=== PATIENT | female | born 1950 | race Caucasian/White ===

== ENCOUNTER → 2019-01-25 | Day surgery (SDC) | payer MEDICARE, MEDICAID ==
[~2019-01-25] MED LIST: ALBU2.5V8 INH; ALLO100T PO; ASPI325T8 PO; BREO ELLIPTA 21 EACH IH; CELE200C PO; CLOP75TA PO; CYCL1DRO EACHEYE; DULO60CA6 PO; FLUT1DIS3 IH; HYDR-3164 PO; HYDROmorphone 2 MG/ML VIAL IV PRN; IV RINGERS,LACTATED 1000ML 1,000 ML IV SCH; LIDOCAINE 1% PF 2 ML VIAL. ID PRN; LIDOCAINE 2% PF 5 ML VIAL. ONE; MORPHINE SULFATE 2 MG/ML VIAL. IV PRN; ONDANSETRON PF 4 MG/2 ML VIAL. IV PRN; PANT20TA2 PO; PIOG30TA41 PO; PRAV20TA2 PO; PRED1TAB3 PO; PROCHLORPERAZINE 10 MG/2 ML VIAL. IV PRN; PROPOFOL 20 ML IV ONE; TELM1TAB2 PO; TELM1TAB3 PO; VENTOLIN HFA18 GM INH; fentaNYL PF VIAL 100 MCG/2 ML VIAL IV PRN
[2019-01-25 08:12] VITALS: BP 103/58
== END | disposition home or self-care (01) ==
LOC: SURG 06:20
PROVIDERS: ATTEND Internal Medicine Gastroenterology
DX: K29.50 Unspecified chronic gastritis without bleeding (principal); I10 Essential (primary) hypertension; J45.909 Unspecified asthma, uncomplicated; F32.9 Major depressive disorder, single episode, unspecified; E11.9 Type 2 diabetes mellitus without complications; K21.9 Gastro-esophageal reflux disease without esophagitis; J43.9 Emphysema, unspecified; E78.00 Pure hypercholesterolemia, unspecified; Z91.013 Allergy to seafood; M19.90 Unspecified osteoarthritis, unspecified site; Z83.71 Family history of colonic polyps; Z79.899 Other long term (current) drug therapy; Z79.84 Long term (current) use of oral hypoglycemic drugs; Z98.890 Other specified postprocedural states
CPT/HCPCS: 43235; J2001; J2704

== ENCOUNTER → 2019-01-30 | Outpatient (CLI) | payer MEDICARE, MEDICAID ==
[2019-01-25 08:12] VITALS: BP 103/58
[~2019-01-30] MED LIST changes: +CONTRAST GIVEN. MC PRN; -HYDROmorphone 2 MG/ML VIAL IV PRN; +IOHEXOL 240 MG/ML 50ML VIAL. PO ONE; +IOHEXOL 300 MG/ML 100ML VIAL. IV ONE; -IV RINGERS,LACTATED 1000ML 1,000 ML IV SCH; -LIDOCAINE 1% PF 2 ML VIAL. ID PRN; -LIDOCAINE 2% PF 5 ML VIAL. ONE; -MORPHINE SULFATE 2 MG/ML VIAL. IV PRN; -ONDANSETRON PF 4 MG/2 ML VIAL. IV PRN; -PROCHLORPERAZINE 10 MG/2 ML VIAL. IV PRN; -PROPOFOL 20 ML IV ONE; -fentaNYL PF VIAL 100 MCG/2 ML VIAL IV PRN
--- NOTE | 2019-01-30 14:08 | RAD ---
CT ABD PELV W/ORAL IV CONTRAST Indication: Epigastric pain, weight loss Technique: Postcontrast CT imaging was performed of the abdomen pelvis, multiplanar reconstruction images submitted. Oral contrast was also given. One or more of the following individualized dose reduction techniques were utilized for this examination: 1. Automated exposure control 2. Adjustment of the mA and/or kV according to patient size 3. Use of iterative reconstruction technique. Comparison: None Findings: There may be a very small left lower lobe pulmonary nodule about 0.3 cm as seen on the first image 8 series 2. No focal abnormality is identified of the pancreas, spleen, liver. Gallbladder is present without obvious intraluminal abnormality by CT. There is no adrenal nodularity. Both kidneys enhance, no hydronephrosis. There is a small 0.8 cm hypodense lesion of the superior left kidney difficult to accurately characterize given small size. Tiny hypodense lesion of the inferior right kidney about 0.4 cm is also too small to accurately characterize. There is a small calculus of the mid right kidney about 0.2 cm although this may be vascular in etiology rather than in the collecting system. Bowel is not significantly dilated. There is no free fluid or free air. Normal appendix is visualized. There is some retained stool greater of the sigmoid colon. There is some atherosclerotic calcification of the abdominal aorta, also of the proximal celiac and superior mesenteric arteries, likely more significant narrowing of the celiac artery origin and lesser degree of narrowing of the proximal superior mesenteric artery. There are several small nonspecific mesenteric nodes. IMPRESSION: 1. There is no significant inflammatory type change, no evidence of acute appendicitis. There are several small nonspecific mesenteric nodes. 2. Calcified plaque results in narrowing of the celiac artery and to lesser degree of the superior mesenteric artery. 3. There may be a very small left lower lobe pulmonary nodule as seen on the first image. If increased risk factors for neoplasm, dedicated chest CT to completely evaluate for lung nodules may be indicated. Regarding the visualized nodule, optional 12 month follow-up could be performed as per revised Fleischner guidelines, no additional follow-up needed if low risk factors. 4. There is a small calculus of the right kidney although uncertain if vascular in etiology or in collecting system. Electronically signed by: Darío Dillon MD (01/30/2019 2:05 PM) [place] [id number]
== END | disposition home or self-care (01) ==
LOC: CT 12:01
PROVIDERS: ATTEND Internal Medicine Gastroenterology
DX: N20.0 Calculus of kidney (principal); K55.1 Chronic vascular disorders of intestine; I77.1 Stricture of artery; I70.0 Atherosclerosis of aorta; R63.4 Abnormal weight loss
CPT/HCPCS: 74177; Q9966; Q9967

== ENCOUNTER 2019-02-20 07:04 | Outpatient (CLI) | payer MEDICARE, MEDICAID ==
[2019-02-20] VITALS (12 sets, daily range): BP systolic 105–136; BP diastolic 52–71
[~2019-02-20] VITALS: Ht 172.7 cm; Wt 88.9 kg
[~2019-02-20 07:04] MED LIST changes: -ASPI325T8 PO; -BREO ELLIPTA 21 EACH IH; -CONTRAST GIVEN. MC PRN; -HYDR-3164 PO; -IOHEXOL 240 MG/ML 50ML VIAL. PO ONE; -IOHEXOL 300 MG/ML 100ML VIAL. IV ONE
[2019-02-20] MEDS ORDERED: BREO ELLIPTA 21 EACH IH (07:37)
[2019-02-20] MEDS ORDERED: PANT20TA2 PO (07:37)
[2019-02-20 07:40] LABS: BASO # 0.1 x10^3/uL (0.0-0.2); BASO % 1 % (0-3); EOS # 0.2 x10^3/uL (0.0-0.7); EOS % 2 % (0-3); HEMATOCRIT 37.1 % (36.0-47.0); HEMOGLOBIN 12.6 g/dL (12.0-15.5); LYMPH # 2.7 x10^3/uL (1.0-4.8); LYMPH % 26 % (24-48); MEAN CORPUSCULAR HEMOGLOBIN 32 pg (25-35); MEAN CORPUSCULAR HGB CONC 34 g/dL (31-37); MEAN CORPUSCULAR VOLUME 94 fL (79-100); MONO # 0.9 x10^3/uL (0.0-1.1); MONO % 9 % (0-9); NEUT # 6.2 x10^3uL (1.8-7.7); NEUT % 62 % (31-73); PLATELET COUNT 313 x10^3/uL (140-400); RED BLOOD COUNT 3.97 x10^6/uL (3.50-5.40); RED CELL DISTRIBUTION WIDTH 14.5 % (11.5-14.5); WHITE BLOOD COUNT 10.1 x10^3/uL (4.0-11.0)
[2019-02-20 07:49] LABS: CREATININE 0.9 mg/dL (0.6-1.0); GFR 62.3; POTASSIUM 3.6 mmol/L (3.5-5.1)
[2019-02-20] MEDS ORDERED: MIDAZOLAM HCL/PF 2 MG/2 ML VIAL. ONE ×2 (07:50→09:35)
[2019-02-20] MEDS ORDERED: HEPARIN for IV BOLUS 10,000 UNIT/10 ML VIAL. ONE (07:50)
[2019-02-20] MEDS ORDERED: fentaNYL PF VIAL 100 MCG/2 ML VIAL ONE ×2 (07:50→09:35)
[2019-02-20 07:53] LABS: PROTHROMBIN TIME PATIENT 13.1 SEC (11.7-14.0)
[2019-02-20 07:54] LABS: ALBUMIN 3.1 g/dL (3.4-5.0); ALBUMIN/GLOBULIN RATIO 0.8 (1.0-1.7); TOTAL BILIRUBIN 0.3 mg/dL (0.2-1.0); TOTAL PROTEIN 6.9 g/dL (6.4-8.2)
[2019-02-20] MEDS ORDERED: VERAPAMIL 5 MG/2 ML VIAL. ONE (08:19)
[2019-02-20] MEDS ORDERED: NITROGLYCERIN 200 MCG/2 ML SYRINGE FOR CATH/VASC LAB. ONE (08:19)
[2019-02-20] MEDS ORDERED: LIDOCAINE WITH 8.4% SOD BICARB 3 ML DISP.SYRIN. ONE (08:42)
[2019-02-20] MEDS ORDERED: IOHEXOL 240 MG/ML 100 ML VIAL. ONE (08:43)
[2019-02-20] MEDS ORDERED: fentaNYL PF VIAL 100 MCG/2 ML VIAL IV ONE (08:45)
[2019-02-20] MEDS ORDERED: HEPARIN for IV BOLUS 10,000 UNIT/10 ML VIAL. IART ONE (08:45)
[2019-02-20] MEDS ORDERED: IOHEXOL 240 MG/ML 100 ML VIAL. IJ ONE (08:45)
[2019-02-20] MEDS ORDERED: NITROGLYCERIN 200 MCG/2 ML SYRINGE FOR CATH/VASC LAB. IART ONE (08:45)
[2019-02-20] MEDS ORDERED: VERAPAMIL 5 MG/2 ML VIAL. IART ONE (08:45)
[2019-02-20] MEDS ORDERED: MIDAZOLAM HCL/PF 2 MG/2 ML VIAL. IV ONE (08:45)
[2019-02-20] MEDS ORDERED: LIDOCAINE WITH 8.4% SOD BICARB 3 ML DISP.SYRIN. IJ ONE (08:45)
[2019-02-20] MEDS ORDERED: HEPARIN for IV BOLUS 10,000 UNIT/10 ML VIAL. IV ONE (10:00)
--- NOTE | 2019-02-20 11:37 | RAD ---
02/20/2019 1. Mesenteric angiography 2. Placement of balloon expandable stent, superior mesenteric artery Discussion: The patient is a 68-year-old female with long-standing severe vascular disease including peripheral vascular disease and sustaining multiple prior interventions. She presents with paroxysmal abdominal pain, epigastric pain, and unintentional weight loss. 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 Mild narrowing of the LUPILLO is felt to be present. Patient's symptoms are felt to reflect chronic mesenteric ischemia. The risks and benefits of the procedure were discussed extensively with the patient. Informed consent was obtained. The patient was brought to the IR suite and placed in the supine position. A timeout procedure was performed. Left wrist was prepped and draped using sterile barrier technique. A Barbeau test was performed, confirming patency of the radiopalmar arch. Radial artery access was obtained using ultrasound guidance and micropuncture technique. Reference ultrasound images were saved medical record. A 6 Welsh Low Profile sheath was placed. The guidewire and catheter were advanced to the ostium of the SMA. Angiography was performed demonstrating high-grade stenosis at the ostium extending approximately 2 cm into the SMA. Retrograde filling of celiac collaterals noted. The stenosis was crossed with a wire. Predilatation was performed with a 4 mm balloon. Subsequently a 5.5 mm x 20 cm balloon expandable stent was placed. Repeat angiography demonstrated significant improvement in morphology and flow through the previously stenosed lesion. Guidewires and catheters were removed. A TR band was placed for hemostasis. The patient tolerated the procedure well without immediate complication. Sterile dressings were applied. The procedures performed under conscious sedation including continuous cardiopulmonary monitoring via a dedicated sedation nurse. [id number] sedation time: 1 hour Fluoroscopy time: 12.7 minutes Dose area product [id number] Impression: Treatment of high-grade stenosis, proximal superior mesenteric artery, via transradial placement of a balloon expandable stent
[2019-02-20] MEDS ORDERED: ASPI325T8 PO ×2 (11:43→11:44)
[2019-02-20] MEDS ORDERED: ASPIRIN 325 MG TABLET PO ONE (11:45)
[2019-02-20] MEDS ORDERED: ASPIRIN 325 MG TABLET ONE (12:04)
--- NOTE | 2019-02-20 13:43 | NUR ---
Discharge Note: CHOCO YEH Discharge instructions and discharge home medications reviewed with Patient and a copy given. All questions have been answered and understanding verbalized. Patient ate lunch, tolerated well. The following instructions and handouts were given: Moderate sedation, radial site carea and angiogram with stent. Discontinued lines and drains: PIV in right wrsit and left hand, dressing clean dry intact. Patient discharged to home with friend Saloni via wheelchair in private vehicle.
[2019-04-01] MEDS ORDERED: HYDR-3164 PO (15:01)
== END 2019-02-20 13:25 | disposition home or self-care (01) ==
LOC: INTRAD 07:04
PROVIDERS: ATTEND Family Medicine
DX: K55.1 Chronic vascular disorders of intestine (principal); Z91.018 Allergy to other foods; I25.10 Atherosclerotic heart disease of native coronary artery without angina pectoris; F17.210 Nicotine dependence, cigarettes, uncomplicated; E11.9 Type 2 diabetes mellitus without complications; Z79.84 Long term (current) use of oral hypoglycemic drugs; J43.9 Emphysema, unspecified
CPT/HCPCS: 36245; 36415; 37236; 75726; 76937; 80053; 85025; 85610; 85730; 99152; 99153; C1725; C1769; C1876; C1892; C1894; J1644; J2250; J3010; J3490; Q9966; 75710

== ENCOUNTER 2019-02-27 12:24 | Inpatient (IN) | payer MEDICARE, MEDICAID ==
[~2019-02-27] VITALS: Ht 172.7 cm; Wt 87.5 kg
[~2019-02-27 12:24] MED LIST changes: +ASPI325T8 PO; +BREO ELLIPTA 21 EACH IH
[2019-02-27] MEDS ORDERED: CELE200C PO (14:23)
[2019-02-27] MEDS: PIOGLITAZONE 15 MG TABLET. PO SCH (14:26)
[2019-02-27] MEDS: PANTOPRAZOLE 40 MG TABLET.DR. PO SCH (14:26)
[2019-02-27 14:40] VITALS: BP 137/68
[2019-02-27 14:46] LABS: BASO # 0.1 x10^3/uL (0.0-0.2); BASO % 1 % (0-3); EOS # 0.2 x10^3/uL (0.0-0.7); EOS % 2 % (0-3); HEMATOCRIT 32.3 % (36.0-47.0); HEMOGLOBIN 10.7 g/dL (12.0-15.5); LYMPH # 2.7 x10^3/uL (1.0-4.8); LYMPH % 30 % (24-48); MEAN CORPUSCULAR HEMOGLOBIN 31 pg (25-35); MEAN CORPUSCULAR HGB CONC 33 g/dL (31-37); MEAN CORPUSCULAR VOLUME 94 fL (79-100); MONO # 0.6 x10^3/uL (0.0-1.1); MONO % 6 % (0-9); NEUT # 5.5 x10^3uL (1.8-7.7); NEUT % 60 % (31-73); PLATELET COUNT 405 x10^3/uL (140-400); RED BLOOD COUNT 3.44 x10^6/uL (3.50-5.40); RED CELL DISTRIBUTION WIDTH 15.2 % (11.5-14.5)
[2019-02-27 14:54] LABS: CALCIUM 8.8 mg/dL (8.5-10.1); CREATININE 0.9 mg/dL (0.6-1.0); GFR 62.3; POTASSIUM 3.7 mmol/L (3.5-5.1)
[2019-02-27 15:00] LABS: ALBUMIN 3.2 g/dL (3.4-5.0); ALBUMIN/GLOBULIN RATIO 0.9 (1.0-1.7); TOTAL BILIRUBIN 0.3 mg/dL (0.2-1.0); TOTAL PROTEIN 6.7 g/dL (6.4-8.2)
[2019-02-27] MEDS ORDERED: ALLOPURINOL 300 MG TABLET. PO SCH (15:00)
[2019-02-27] MEDS ORDERED: DULoxetine HCL 30 MG CAPSULE.DR PO SCH (15:00)
[2019-02-27] MEDS: IV NORMAL SALINE 1000ML BAG 1,000 ML IV SCH (15:07)
[2019-02-27] MEDS ORDERED: MAGNESIUM CITRATE 296 ML SOLUTION. PO ONE (16:45)
--- NOTE | 2019-02-27 16:49 | PDOC2 ---
GI CONSULT Reason For Consult: GI bleed HPI: HPI: 68 y/o female directly admitted by Dr. Joaquin. Reports 1 formed black stool daily since last Wed. No n/v, dysphagia, diarrhea, constipation. No hematochezia. H/o GERD controlled w/ PPI. EGD 01/25/19: gastritis. S/p SMA stent on 02/20/19. Appetite much better since, denies post-prandial pain though has "nagging" left periumbilical pain since then. Hgb 10.9 compared to 12.6 on 02/20. BUN 9, MCV 94. No previous colonoscopy. No GB, pancreas, liver, or PUD history. On ASA since stent placement, also Celebrex. PMH: PMH: HTN, HLD, PVD, DM, GERD, diverticulosis, hypothyroidism, depression, OA, gout, seizure (related to HTN) SMA stent, LIH repair, LE stents, 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, bilateral knee replacements, cataract removal FH: Family History: No pertinent hx Social History: Smoke: 1 pack per day ALCOHOL: none Drugs: None ROS: GEN: Denies fevers, chills, sweats HEENT: Denies blurred vision, sore throat CV: Denies chest pain RESP: +SOA with walking GI: Per HPI : Denies hematuria, dysuria ENDO: ?weight loss NEURO: Denies confusion, dizziness MSK: +OA pain SKIN: Denies jaundice, pruritus Vitals: Vitals: Vital Signs Date Time Temp Pulse Resp B/P (MAP) Pulse Ox O2 Delivery O2 Flow Rate FiO2 02/27/19 15:17 Room Air 02/27/19 14:40 98.4 89 20 137/68 (91) 96 98.4 Labs: Labs: Laboratory Tests Test 02/27/19 14:30 White Blood Count 9.0 x10^3/uL (4.0-11.0) Red Blood Count 3.44 x10^6/uL (3.50-5.40) Hemoglobin 10.7 g/dL (12.0-15.5) Hematocrit 32.3 % (36.0-47.0) Mean Corpuscular Volume 94 fL (79-100) Mean Corpuscular Hemoglobin 31 pg (25-35) Mean Corpuscular Hemoglobin Concent 33 g/dL (31-37) Red Cell Distribution Width 15.2 % (11.5-14.5) Platelet Count 405 x10^3/uL (140-400) Neutrophils (%) (Auto) 60 % (31-73) Lymphocytes (%) (Auto) 30 % (24-48) Monocytes (%) (Auto) 6 % (0-9) Eosinophils (%) (Auto) 2 % (0-3) Basophils (%) (Auto) 1 % (0-3) Neutrophils # (Auto) 5.5 x10^3uL (1.8-7.7) Lymphocytes # (Auto) 2.7 x10^3/uL (1.0-4.8) Monocytes # (Auto) 0.6 x10^3/uL (0.0-1.1) Eosinophils # (Auto) 0.2 x10^3/uL (0.0-0.7) Basophils # (Auto) 0.1 x10^3/uL (0.0-0.2) Sodium Level 139 mmol/L (136-145) Potassium Level 3.7 mmol/L (3.5-5.1) Chloride Level 103 mmol/L (98-107) Carbon Dioxide Level 27 mmol/L (21-32) Anion Gap 9 (6-14) Blood Urea Nitrogen 17 mg/dL (7-20) Creatinine 0.9 mg/dL (0.6-1.0) Estimated GFR (Cockcroft-Gault) 62.3 BUN/Creatinine Ratio 19 (6-20) Glucose Level 86 mg/dL (70-99) Calcium Level 8.8 mg/dL (8.5-10.1) Total Bilirubin 0.3 mg/dL (0.2-1.0) Aspartate Amino Transf (AST/SGOT) 14 U/L (15-37) Alanine Aminotransferase (ALT/SGPT) 17 U/L (14-59) Alkaline Phosphatase 124 U/L (46-116) Total Protein 6.7 g/dL (6.4-8.2) Albumin 3.2 g/dL (3.4-5.0) Albumin/Globulin Ratio 0.9 (1.0-1.7) Allergies: Coded Allergies: shrimp (Verified Allergy, Unknown, Rash, 02/20/19) Medications: Current Medications Medications (Trade) Dose Ordered Sig/Kira Route PRN Reason Start Time Stop Time Status Last Admin Dose Admin Sodium Chloride 1,000 ml @ 100 mls/hr Q10H IV 02/27/19 14:15 02/27/19 15:07 Imaging: Imaging: Reviewed in [place]. PE: GEN: NAD HEENT: Atraumatic, PERRL LUNGS: diminished anteriorly HEART: RRR ABD: NABS, S/ND, vague left periumbilical discomfort (mild) EXTREMITY: No edema SKIN: No rashes, no jaundice NEURO/PSYCH: A & O 3 A/P: A/P: "Black stools" Normocytic anemia - new GERD - controlled w/ PPI, recent EGD unrevealing Post-prandial abd pain (resolved), SMA stenosis s/p stent on ASA CRC screen - none NSAID use -- Reviewed w/ Dr. Jean - plan for colonoscopy tomorrow afternoon after prep. Continue PPI. ELDA HUTTON February 27, 2019 16:49
[2019-02-27] MEDS ORDERED: POLYETHYLENE GLYCOL 3350 BTL 238 GM POWDER PO ONE (17:45)
[2019-02-27] MEDS ORDERED: BISACODYL 5 MG TABLET.DR. PO ONE (18:45)
[2019-02-27 19:22] VITALS: BP 141/66
[2019-02-27] MEDS: ALLOPURINOL 300 MG TABLET. PO SCH (20:31)
[2019-02-27] MEDS: CELECOXIB 100 MG CAPSULE. PO SCH (20:31)
[2019-02-27] MEDS: ATORVASTATIN CALCIUM 10 MG TABLET. PO SCH (20:31)
[2019-02-27] MEDS: DULoxetine HCL 30 MG CAPSULE.DR PO SCH (20:31)
[2019-02-27 20:57] LABS: FECAL OB PT POSITIVE (NEG)
--- NOTE | 2019-02-27 21:01 | HP ---
ADMIT DATE: 02/27/2019 CHIEF COMPLAINT AND HISTORY OF PRESENT ILLNESS: This 68-year-old white female is well known to me from followup in the office. The patient had stenting of her superior mesenteric artery by Interventional Radiology go a week today. She has had black melanotic stools ever since. She has become progressively weaker, but has found that eating has become easier since this was ballooned and stented. She was started on aspirin after the procedure for the same. She was found to have heme positive stool in the office, felt to be having GI bleed with stable vital signs, however, with blood pressure of 130/70, pulse of 90, was admitted to telemetry for GI consultation and transfusion if needed. PAST MEDICAL HISTORY: Remarkable for the recent mesenteric ischemia. She has a history of peripheral arterial disease, history of peptic ulcer disease, diabetes, COPD, osteoarthritis of the knees, hypertension. MEDICATIONS: Brought with the patient, listed on the computer and have been addressed. ALLERGIES: She has no known drug allergies. SOCIAL HISTORY: She is a reformed smoker. Does not abuse alcohol or drugs. FAMILY HISTORY: Noncontributory. REVIEW OF SYSTEMS: As mentioned above. PHYSICAL EXAMINATION: GENERAL: She is a well-developed, well-nourished white female, in no acute distress. VITAL SIGNS: Stable. She is afebrile. HEAD, EYES, EARS, NOSE AND THROAT: Unremarkable. NECK: Supple without adenopathy or thyromegaly. CHEST: Reveals decreased breath sounds, but clear. HEART: Regular rate and rhythm without S3, S4 or murmur. ABDOMEN: Soft, nontender without hepatosplenomegaly or mass. EXTREMITIES: Without cyanosis, clubbing or edema. Does have bruising on her left arm, which was the site of entry for the mesenteric intervention. NEUROLOGIC: She is intact. IMPRESSION: 1. Melena with gastrointestinal bleeding. 2. Multiple other problems listed above. PLAN: The patient will be admitted. She will be typed and crossed. IV fluids will be started. She will be monitored closely on telemetry. Gastroenterology has been consulted, and the patient will be monitored, managed and treated appropriately. ANABEL MARTÍNEZ MD DR: IZA/heriberto JOB#: [id number] / [id number]
[2019-02-27 23:15] VITALS: BP 122/61
[2019-02-28] MEDS: IV NORMAL SALINE 1000ML BAG 1,000 ML IV SCH ×3 (00:56→20:45)
[2019-02-28 03:24] VITALS: BP 106/51
[2019-02-28 03:57] LABS: BASO # 0.1 x10^3/uL (0.0-0.2); BASO % 1 % (0-3); EOS # 0.3 x10^3/uL (0.0-0.7); EOS % 3 % (0-3); HEMATOCRIT 30.9 % (36.0-47.0); LYMPH # 3.1 x10^3/uL (1.0-4.8); LYMPH % 40 % (24-48); MEAN CORPUSCULAR HEMOGLOBIN 31 pg (25-35); MEAN CORPUSCULAR HGB CONC 33 g/dL (31-37); MEAN CORPUSCULAR VOLUME 95 fL (79-100); MONO # 0.6 x10^3/uL (0.0-1.1); MONO % 8 % (0-9); NEUT # 3.7 x10^3uL (1.8-7.7); NEUT % 47 % (31-73); PLATELET COUNT 378 x10^3/uL (140-400); RED BLOOD COUNT 3.26 x10^6/uL (3.50-5.40); WHITE BLOOD COUNT 7.8 x10^3/uL (4.0-11.0)
[2019-02-28 07:00] VITALS: BP 117/74
[2019-02-28] MEDS: PANTOPRAZOLE 40 MG TABLET.DR. PO SCH (07:30)
[2019-02-28] MEDS ORDERED: PANTOPRAZOLE IV PUSH 40 MG VIAL. IVP ONE (08:30)
--- NOTE | 2019-02-28 09:10 | NUR ---
SW following pt for anticipated dc needs. Chart reviewed and discussed with RN. Pt lives at home and is independent with ADL's. No dc needs noted at this time.
[2019-02-28 11:14] VITALS: BP 134/63
[2019-02-28] MEDS ORDERED: IV RINGERS,LACTATED 1000ML 1,000 ML IV SCH (15:00)
[2019-02-28] MEDS ORDERED: fentaNYL PF VIAL 100 MCG/2 ML VIAL ONE (15:36)
[2019-02-28] MEDS ORDERED: MIDAZOLAM HCL/PF 5 MG/5 ML VIAL. ONE (15:36)
[2019-02-28] MEDS ORDERED: MIDAZOLAM HCL/PF 5 MG/5 ML VIAL. IV ONE ×5 (16:03→16:27)
[2019-02-28] MEDS ORDERED: fentaNYL PF VIAL 100 MCG/2 ML VIAL IV ONE ×4 (16:03→16:22)
[2019-02-28] MEDS ORDERED: diphenhydrAMINE 50 MG/ML VIAL ONE (16:12)
[2019-02-28] MEDS ORDERED: diphenhydrAMINE 50 MG/ML VIAL IV ONE (16:13)
--- NOTE | 2019-02-28 16:39 | PDOC4 ---
Operative Note Operative Note Colonoscopy with biopsies Meds Versed 5 mg Fentanyl 100 mcg Benadryl 25 mg IV Pre-op dx anemia/abd pain s/p mesenteric stent post-op dx internal hemorrhoids sigmoid diverticulosis ascending colon sessile polyp extending over entire fold s/p biopsies r/o tubullo-villous adenoma and/or lymphoma Plan advance diet surgical consult for elective resection of right colon pending pathology results. CASPER SCHILLING MD February 28, 2019 16:39
--- NOTE | 2019-02-28 16:55 | NUR ---
Patient went down for a colonoscopy at 1430. Report called from Yvon at 1650. Pt tolerated procedure well and vitals are stable. Yvon stated that a suspicious polyp was found in the ascending colon. Biopsy done and sample has been sent to lab. Patient is mildly sedated but is able to follow commands.
[2019-02-28 17:19] VITALS: BP 141/60
[2019-02-28 17:47] LABS: BASO # 0.1 x10^3/uL (0.0-0.2); BASO % 1 % (0-3); EOS # 0.2 x10^3/uL (0.0-0.7); EOS % 3 % (0-3); HEMATOCRIT 31.8 % (36.0-47.0); HEMOGLOBIN 10.4 g/dL (12.0-15.5); LYMPH # 2.7 x10^3/uL (1.0-4.8); LYMPH % 41 % (24-48); MEAN CORPUSCULAR HEMOGLOBIN 31 pg (25-35); MEAN CORPUSCULAR HGB CONC 33 g/dL (31-37); MEAN CORPUSCULAR VOLUME 95 fL (79-100); MONO # 0.5 x10^3/uL (0.0-1.1); MONO % 7 % (0-9); NEUT # 3.1 x10^3uL (1.8-7.7); NEUT % 47 % (31-73); PLATELET COUNT 410 x10^3/uL (140-400); RED BLOOD COUNT 3.36 x10^6/uL (3.50-5.40); RED CELL DISTRIBUTION WIDTH 15.2 % (11.5-14.5); WHITE BLOOD COUNT 6.5 x10^3/uL (4.0-11.0)
[2019-02-28] MEDS: PIOGLITAZONE 15 MG TABLET. PO SCH (17:58)
[2019-02-28 19:19] VITALS: BP 109/49
[2019-02-28] MEDS: DULoxetine HCL 30 MG CAPSULE.DR PO SCH (20:44)
[2019-02-28] MEDS: ALLOPURINOL 300 MG TABLET. PO SCH (20:44)
[2019-02-28] MEDS: ATORVASTATIN CALCIUM 10 MG TABLET. PO SCH (20:44)
[2019-02-28] MEDS: CELECOXIB 100 MG CAPSULE. PO SCH (20:45)
--- NOTE | 2019-02-28 20:59 | PN ---
DATE: 02/28/2019 LOCATION: Room 648. SUBJECTIVE: The patient is awake, alert, sitting in bed, is still having some intermittent left upper quadrant discomfort. Had three more melanotic stools last night, but then none overnight. OBJECTIVE: Vital signs are stable. She is afebrile. She is n.p.o. for endoscopy today. Stool for occult blood has been positive since admission. Hemoglobin has dropped from 10.7 to 10 overnight. Chemistries are mostly unremarkable. Sugars have been excellent. She has been typed and screened for blood, but none has been necessary today. GI bleed, likely upper with melanotic stool following a superior mesenteric artery ballooning and stenting a week ago and started on aspirin after the same. She has been taking Protonix at home leading up to this in addition. I am going to give her an IV dose this morning as she is n.p.o. IMPRESSION: 1. Gastrointestinal bleed, likely upper in nature. 2. Recent superior mesenteric artery stenting. 3. Diabetes. 4. Chronic obstructive pulmonary disease. PLAN: Await GI endoscopy. One dose at least of IV Protonix this morning. I am going to ask Interventional Radiology for opinion regarding the need for anticoagulation with the current bleeding and what her best options are in that regards. ANABEL MARTÍNEZ MD DR: IZA/heriberto JOB#: [id number] / [id number]
[2019-02-28 23:41] VITALS: BP 104/38
[2019-03-01 03:14] VITALS: BP 94/58
[2019-03-01 03:50] LABS: BASO # 0.1 x10^3/uL (0.0-0.2); BASO % 1 % (0-3); EOS # 0.2 x10^3/uL (0.0-0.7); EOS % 3 % (0-3); HEMATOCRIT 30.3 % (36.0-47.0); HEMOGLOBIN 9.7 g/dL (12.0-15.5); LYMPH # 2.2 x10^3/uL (1.0-4.8); LYMPH % 29 % (24-48); MEAN CORPUSCULAR HEMOGLOBIN 30 pg (25-35); MEAN CORPUSCULAR HGB CONC 32 g/dL (31-37); MEAN CORPUSCULAR VOLUME 94 fL (79-100); MONO # 0.6 x10^3/uL (0.0-1.1); MONO % 8 % (0-9); NEUT # 4.5 x10^3uL (1.8-7.7); NEUT % 59 % (31-73); PLATELET COUNT 387 x10^3/uL (140-400); RED BLOOD COUNT 3.22 x10^6/uL (3.50-5.40); RED CELL DISTRIBUTION WIDTH 15.4 % (11.5-14.5); WHITE BLOOD COUNT 7.6 x10^3/uL (4.0-11.0)
[2019-03-01] MEDS: IV NORMAL SALINE 1000ML BAG 1,000 ML IV SCH (06:15)
[2019-03-01 07:00] VITALS: BP 144/66
[2019-03-01] MEDS: PANTOPRAZOLE 40 MG TABLET.DR. PO SCH (08:06)
[2019-03-01] MEDS: PIOGLITAZONE 15 MG TABLET. PO SCH (08:06)
--- NOTE | 2019-03-01 08:36 | PDOC ---
Provider Note Provider Note IR NOTE Hx or recent SMA stent for chronic mesenteric ischemia. Post prandial pain, and overall abdominal pain improved. But patient has been having dark stools since shortly after procedure. I put her on ASA bid due to inability to take plavix. Given GI bleed, this has been held. Have to weigh risks and benefits of c ontinued antiplatelet therapy in this patient with new stent but also slow GI bleed. Colonoscopy with polyp removal yesterday. Given the severity and diffuse nature of atherosclerotic vascular disease, would wait until bleeding resolves, and then consider decreasing asa dose to once a day. SABINA MILLER MD March 01, 2019 08:36
[2019-03-01 11:00] VITALS: BP 125/57
--- NOTE | 2019-03-01 13:26 | PDOC ---
Subjective: Subjective: Feels good, would like to go home. Objective: Objective: Reviewed IR note - risk vs benefits w/ new stent, considering decreasing ASA to QD dosing when bleeding resolves. Vital Signs: Vital Signs Date Time Temp Pulse Resp B/P (MAP) Pulse Ox O2 Delivery O2 Flow Rate FiO2 03/01/19 11:00 98.2 66 16 125/57 (79) 95 Room Air 98.2 02/28/19 16:35 3 Labs: Laboratory Tests Test 02/28/19 17:15 02/28/19 17:30 02/28/19 21:25 03/01/19 03:10 Glucose (Fingerstick) 78 mg/dL 111 mg/dL White Blood Count 6.5 x10^3/uL 7.6 x10^3/uL Red Blood Count 3.36 x10^6/uL 3.22 x10^6/uL Hemoglobin 10.4 g/dL 9.7 g/dL Hematocrit 31.8 % 30.3 % Mean Corpuscular Volume 95 fL 94 fL Mean Corpuscular Hemoglobin 31 pg 30 pg Mean Corpuscular Hemoglobin Concent 33 g/dL 32 g/dL Red Cell Distribution Width 15.2 % 15.4 % Platelet Count 410 x10^3/uL 387 x10^3/uL Neutrophils (%) (Auto) 47 % 59 % Lymphocytes (%) (Auto) 41 % 29 % Monocytes (%) (Auto) 7 % 8 % Eosinophils (%) (Auto) 3 % 3 % Basophils (%) (Auto) 1 % 1 % Neutrophils # (Auto) 3.1 x10^3uL 4.5 x10^3uL Lymphocytes # (Auto) 2.7 x10^3/uL 2.2 x10^3/uL Monocytes # (Auto) 0.5 x10^3/uL 0.6 x10^3/uL Eosinophils # (Auto) 0.2 x10^3/uL 0.2 x10^3/uL Basophils # (Auto) 0.1 x10^3/uL 0.1 x10^3/uL Test 03/01/19 07:22 03/01/19 12:08 Glucose (Fingerstick) 86 mg/dL 102 mg/dL Imaging: Colonoscopy 02/28 internal hemorrhoids sigmoid diverticulosis ascending colon sessile polyp extending over entire fold s/p biopsies r/o tubullo-villous adenoma and/or lymphoma PE: GEN: NAD LUNGS: CTAB HEART: RRR ABD: NABS, S/ND/NT NEURO/PSYCH: A & O 3 A/P: Anemia, black stools Ascending colon sessile polyp - biopsy pending S/p SMA stent - previously on ASA -- Will ask surgery to see re: possible right colon resection later on pending biopsy results. DC per primary. Any additional recs re: ASA use w/ fresh stent per Dr. Jean. Ideally would avoid Celebrex. ELDA HUTTON March 01, 2019 13:26
--- NOTE | 2019-03-01 17:09 | PDOC2 ---
CONSULT Date of Consult Date of Consult DATE: 03/01/19 TIME: 17:03 Reason for Consult Reason for Consult: colon polyp Referring Physician Referring Physician: Ted Identification/Chief Complaint Chief Complaint rectal bleeding Source Source: Chart review, Patient History of Present Illness Reason for Visit: 68 yo F s/p recent SMA stenting, placed on ASA. Developed rectal bleeding. Has improved and denies pain. Underwent colonoscopy which demonstrated sessile polyp in right colon. Currently, patient feels well and requests to d/c. Past Medical History Cardiovascular: HTN, Other (mesenteric ischemia) Pulmonary: COPD GI: Peptic Ulcer disease, Other (mesenteric ischemia) Endocrine: Diabetes Dermatology: Other (PVD) Past Surgical History Past Surgical History: Hernia Repair (left inguinal hernia repair x 2) Family History Family History: No Significant Social History 1 pack per day ALCOHOL: none Drugs: None Current Medications Current Medications Current Medications Sodium Chloride 1,000 ml @ 100 mls/hr Q10H IV Last administered on 03/01/19 06:15; Start 02/27/19 at 14:15 Allopurinol (Zyloprim) 300 mg DAILY PO ; Start 02/27/19 at 15:00; Stop 02/27/19 at 15:00; Status DC Celecoxib (CeleBREX) 200 mg QHS PO Last administered on 02/28/19 20:45; Start 02/27/19 at 21:00 Duloxetine HCl (Cymbalta) 60 mg DAILY PO ; Start 02/27/19 at 15:00; Stop 02/27/19 at 15:00; Status DC Pantoprazole Sodium (Protonix) 40 mg DAILYAC PO Last administered on 03/01/19 08:06; Start 02/27/19 at 15:00 Pioglitazone HCl (Actos) 30 mg DAILY PO Last administered on 03/01/19 08:06; Start 02/27/19 at 15:00 Atorvastatin Calcium (Lipitor) 5 mg QHS PO Last administered on 02/28/19 20:44; Start 02/27/19 at 21:00 Allopurinol (Zyloprim) 300 mg HS PO Last administered on 02/28/19 20:44; Start 02/27/19 at 21:00 Duloxetine HCl (Cymbalta) 60 mg HS PO Last administered on 02/28/19 20:44; Start 02/27/19 at 21:00 Polyethylene Glycol (miraLAX Powder BULK BOTTLE) 238 gm 1X ONCE PO Last administered on 02/27/19 17:12; Start 02/27/19 at 17:45; Stop 02/27/19 at 17:46; Status DC Magnesium Citrate (Citroma) 296 ml 1X ONCE PO Last administered on 02/27/19at 16:50; Start 02/27/19 at 16:45; Stop 02/27/19 at 16:46; Status DC Bisacodyl (Dulcolax Tab) 10 mg 1X ONCE PO Last administered on 02/27/19at 20:31; Start 02/27/19 at 18:45; Stop 02/27/19 at 18:46; Status DC Pantoprazole Sodium (PROTONIX VIAL for IV PUSH) 40 mg 1X ONCE IVP Last administered on 02/28/19 09:29; Start 02/28/19 at 08:30; Stop 02/28/19 at 08:31; Status DC Ringer's Solution 1,000 ml @ 100 mls/hr Q10H IV Last administered on 02/28/19at 15:00; Start 02/28/19 at 15:00; Stop 03/01/19 at 01:22; Status DC Midazolam HCl (Versed) 5 mg STK-MED ONCE .ROUTE ; Start 02/28/19 at 15:36; Stop 02/28/19 at 15:37; Status DC Fentanyl Citrate (Fentanyl 2ml Vial) 100 mcg STK-MED ONCE .ROUTE ; Start 02/28/19 at 15:36; Stop 02/28/19 at 15:37; Status DC Midazolam HCl (Versed) 5 mg STK-MED ONCE IV Last administered on 02/28/19at 16:03; Start 02/28/19 at 16:03; Stop 02/28/19 at 16:04; Status DC Fentanyl Citrate (Fentanyl 2ml Vial) 100 mcg STK-MED ONCE IV Last administered on 02/28/19 16:03; Start 02/28/19 at 16:03; Stop 02/28/19 at 16:04; Status DC Midazolam HCl (Versed) 5 mg STK-MED ONCE IV Last administered on 02/28/19 16:07; Start 02/28/19 at 16:07; Stop 02/28/19 at 16:10; Status DC Fentanyl Citrate (Fentanyl 2ml Vial) 100 mcg STK-MED ONCE IV Last administered on 02/28/19 16:07; Start 02/28/19 at 16:07; Stop 02/28/19 at 16:10; Status DC Diphenhydramine HCl (Benadryl) 50 mg STK-MED ONCE .ROUTE ; Start 02/28/19 at 16:12; Stop 02/28/19 at 16:13; Status DC Diphenhydramine HCl (Benadryl) 50 mg STK-MED ONCE IV Last administered on 02/28/19 16:13; Start 02/28/19 at 16:13; Stop 02/28/19 at 16:15; Status DC Fentanyl Citrate (Fentanyl 2ml Vial) 100 mcg STK-MED ONCE IV Last administered on 02/28/19 16:13; Start 02/28/19 at 16:13; Stop 02/28/19 at 16:17; Status DC Midazolam HCl (Versed) 5 mg STK-MED ONCE IV Last administered on 02/28/19 16:13; Start 02/28/19 at 16:13; Stop 02/28/19 at 16:28; Status DC Fentanyl Citrate (Fentanyl 2ml Vial) 100 mcg STK-MED ONCE IV Last administered on 02/28/19 16:22; Start 02/28/19 at 16:22; Stop 02/28/19 at 16:28; Status DC Midazolam HCl (Versed) 5 mg STK-MED ONCE IV Last administered on 02/28/19 16:22; Start 02/28/19 at 16:22; Stop 02/28/19 at 16:28; Status DC Midazolam HCl (Versed) 5 mg STK-MED ONCE IV Last administered on 02/28/19 16:27; Start 02/28/19 at 16:27; Stop 02/28/19 at 16:28; Status DC Active Scripts Active Reported Celebrex (Celecoxib) 200 Mg Capsule 1 Cap PO HS Protonix (Pantoprazole Sodium) 20 Mg Tablet.dr 40 Mg PO DAILY Actos (Pioglitazone Hcl) 30 Mg Tablet 30 Mg PO DAILY Pravastatin Sodium 20 Mg Tablet 20 Mg PO DAILY Allopurinol 100 Mg Tablet 300 Mg PO DAILY Cymbalta (Duloxetine Hcl) 60 Mg Capsule.dr 60 Mg PO DAILY Allergies Allergies: Coded Allergies: shrimp (Verified Allergy, Unknown, Rash, 02/28/19) ROS Gastrointestinal: Yes Hematochezia Physical Exam General: Alert, Oriented X3, Cooperative, No acute distress HEENT: Atraumatic Lungs: Normal air movement Abdomen: Soft, No tenderness, No masses Extremities: No clubbing, No cyanosis Skin: No rashes, No breakdown Neuro: Normal speech, Sensation intact Psych/Mental Status: Mental status NL, Mood NL Vitals VITALS Vital Signs Date Time Temp Pulse Resp B/P (MAP) Pulse Ox O2 Delivery O2 Flow Rate FiO2 03/01/19 11:00 98.2 66 16 125/57 (79) 95 Room Air 98.2 02/28/19 16:35 3 Labs Labs Laboratory Tests Test 02/27/19 18:44 02/27/19 19:44 02/28/19 02:45 02/28/19 07:00 Stool Occult Blood Positive (NEG) Glucose (Fingerstick) 100 mg/dL (70-99) 94 mg/dL (70-99) White Blood Count 7.8 x10^3/uL (4.0-11.0) Red Blood Count 3.26 x10^6/uL (3.50-5.40) Hemoglobin 10.0 g/dL (12.0-15.5) Hematocrit 30.9 % (36.0-47.0) Mean Corpuscular Volume 95 fL (79-100) Mean Corpuscular Hemoglobin 31 pg (25-35) Mean Corpuscular Hemoglobin Concent 33 g/dL (31-37) Red Cell Distribution Width 15.0 % (11.5-14.5) Platelet Count 378 x10^3/uL (140-400) Neutrophils (%) (Auto) 47 % (31-73) Lymphocytes (%) (Auto) 40 % (24-48) Monocytes (%) (Auto) 8 % (0-9) Eosinophils (%) (Auto) 3 % (0-3) Basophils (%) (Auto) 1 % (0-3) Neutrophils # (Auto) 3.7 x10^3uL (1.8-7.7) Lymphocytes # (Auto) 3.1 x10^3/uL (1.0-4.8) Monocytes # (Auto) 0.6 x10^3/uL (0.0-1.1) Eosinophils # (Auto) 0.3 x10^3/uL (0.0-0.7) Basophils # (Auto) 0.1 x10^3/uL (0.0-0.2) Test 02/28/19 12:03 02/28/19 17:15 02/28/19 17:30 02/28/19 21:25 Glucose (Fingerstick) 84 mg/dL (70-99) 78 mg/dL (70-99) 111 mg/dL (70-99) White Blood Count 6.5 x10^3/uL (4.0-11.0) Red Blood Count 3.36 x10^6/uL (3.50-5.40) Hemoglobin 10.4 g/dL (12.0-15.5) Hematocrit 31.8 % (36.0-47.0) Mean Corpuscular Volume 95 fL (79-100) Mean Corpuscular Hemoglobin 31 pg (25-35) Mean Corpuscular Hemoglobin Concent 33 g/dL (31-37) Red Cell Distribution Width 15.2 % (11.5-14.5) Platelet Count 410 x10^3/uL (140-400) Neutrophils (%) (Auto) 47 % (31-73) Lymphocytes (%) (Auto) 41 % (24-48) Monocytes (%) (Auto) 7 % (0-9) Eosinophils (%) (Auto) 3 % (0-3) Basophils (%) (Auto) 1 % (0-3) Neutrophils # (Auto) 3.1 x10^3uL (1.8-7.7) Lymphocytes # (Auto) 2.7 x10^3/uL (1.0-4.8) Monocytes # (Auto) 0.5 x10^3/uL (0.0-1.1) Eosinophils # (Auto) 0.2 x10^3/uL (0.0-0.7) Basophils # (Auto) 0.1 x10^3/uL (0.0-0.2) Test 03/01/19 03:10 03/01/19 07:22 03/01/19 12:08 White Blood Count 7.6 x10^3/uL (4.0-11.0) Red Blood Count 3.22 x10^6/uL (3.50-5.40) Hemoglobin 9.7 g/dL (12.0-15.5) Hematocrit 30.3 % (36.0-47.0) Mean Corpuscular Volume 94 fL (79-100) Mean Corpuscular Hemoglobin 30 pg (25-35) Mean Corpuscular Hemoglobin Concent 32 g/dL (31-37) Red Cell Distribution Width 15.4 % (11.5-14.5) Platelet Count 387 x10^3/uL (140-400) Neutrophils (%) (Auto) 59 % (31-73) Lymphocytes (%) (Auto) 29 % (24-48) Monocytes (%) (Auto) 8 % (0-9) Eosinophils (%) (Auto) 3 % (0-3) Basophils (%) (Auto) 1 % (0-3) Neutrophils # (Auto) 4.5 x10^3uL (1.8-7.7) Lymphocytes # (Auto) 2.2 x10^3/uL (1.0-4.8) Monocytes # (Auto) 0.6 x10^3/uL (0.0-1.1) Eosinophils # (Auto) 0.2 x10^3/uL (0.0-0.7) Basophils # (Auto) 0.1 x10^3/uL (0.0-0.2) Glucose (Fingerstick) 86 mg/dL (70-99) 102 mg/dL (70-99) Laboratory Tests Test 02/28/19 17:15 02/28/19 17:30 02/28/19 21:25 03/01/19 03:10 Glucose (Fingerstick) 78 mg/dL (70-99) 111 mg/dL (70-99) White Blood Count 6.5 x10^3/uL (4.0-11.0) 7.6 x10^3/uL (4.0-11.0) Red Blood Count 3.36 x10^6/uL (3.50-5.40) 3.22 x10^6/uL (3.50-5.40) Hemoglobin 10.4 g/dL (12.0-15.5) 9.7 g/dL (12.0-15.5) Hematocrit 31.8 % (36.0-47.0) 30.3 % (36.0-47.0) Mean Corpuscular Volume 95 fL (79-100) 94 fL (79-100) Mean Corpuscular Hemoglobin 31 pg (25-35) 30 pg (25-35) Mean Corpuscular Hemoglobin Concent 33 g/dL (31-37) 32 g/dL (31-37) Red Cell Distribution Width 15.2 % (11.5-14.5) 15.4 % (11.5-14.5) Platelet Count 410 x10^3/uL (140-400) 387 x10^3/uL (140-400) Neutrophils (%) (Auto) 47 % (31-73) 59 % (31-73) Lymphocytes (%) (Auto) 41 % (24-48) 29 % (24-48) Monocytes (%) (Auto) 7 % (0-9) 8 % (0-9) Eosinophils (%) (Auto) 3 % (0-3) 3 % (0-3) Basophils (%) (Auto) 1 % (0-3) 1 % (0-3) Neutrophils # (Auto) 3.1 x10^3uL (1.8-7.7) 4.5 x10^3uL (1.8-7.7) Lymphocytes # (Auto) 2.7 x10^3/uL (1.0-4.8) 2.2 x10^3/uL (1.0-4.8) Monocytes # (Auto) 0.5 x10^3/uL (0.0-1.1) 0.6 x10^3/uL (0.0-1.1) Eosinophils # (Auto) 0.2 x10^3/uL (0.0-0.7) 0.2 x10^3/uL (0.0-0.7) Basophils # (Auto) 0.1 x10^3/uL (0.0-0.2) 0.1 x10^3/uL (0.0-0.2) Test 03/01/19 07:22 03/01/19 12:08 Glucose (Fingerstick) 86 mg/dL (70-99) 102 mg/dL (70-99) Assessment/Plan Assessment/Plan colon polyp OK to d/c home f/u pathology pt is requested to f/u in office to consider colectomy R/R/B/A d/w briefly d/w pt Thanks for consult! PRINCESS YANG MD March 01, 2019 17:08
--- NOTE | 2019-03-01 17:49 | NUR ---
Discharge Note: [facility] [address] [place] [address] Discharge instructions reviewed with Patient and a copy given. All questions have been answered and understanding verbalized. The following instructions and handouts were given: GI bleed home care, f/u information for Dr. Salmeron and patient stated appointment already scheduled with Dr. Joaquin on 03/03/2019. Discontinued lines and drains: 1 x PIV line tip intact. Patient discharged to home with self
--- NOTE | 2019-03-01 17:49 | NUR ---
Telephone order received from Dr. Joaquin to discharge patient to home and follow-up with him on 03/03/2019.
--- NOTE | 2019-03-01 21:49 | PN ---
DATE: 03/01/2019 ROOM: 648. SUBJECTIVE: The patient is awake, alert. Denies any significant complaints today. OBJECTIVE: VITAL SIGNS: Stable. She is afebrile. Blood pressures are variable, but towards the low side. Hemoglobin this morning has dipped further to 9.7. Sugars have been good. CHEST: Reveals decreased breath sounds, but clear. HEART: Regular. ABDOMEN: Benign. Colonoscopy report yesterday shows ascending colon sessile polyp extending over entire fold with biopsies done. They suggest surgical consult for elective resection, pending pathology results. She has had no further black stools after the colon prep. My impression on admission is that the bleeding was probably higher up, but she was taking Protonix regularly prior to admission, but did have the aspirin started after the stenting, although the bleeding would seem to be fairly quickly following the addition of aspirin as it happened almost immediately. ASSESSMENT: 1. Gastrointestinal bleed with anemia. 2. Recent superior mesenteric artery stent. 3. Chronic obstructive pulmonary disease. PLAN: We will defer at this point in time to GI as to when I feel she is safe for discharge and whether further endoscopy is needed. I did discuss with Interventional Radiology this morning and feel that at the very least a baby aspirin needs to be done after the stenting. ANABEL MARTÍNEZ MD DR: IZA/heriberto JOB#: [id number] / [id number]
--- NOTE | 2019-03-02 11:09 | PATHOLOGY ---
[facility] Accession Number: [id number] . 01 Material submitted: . colon - ASCENDING COLON SESSILE POLYP. Modifiers: ascending . 01 Clinical history: . GI bleed . 02 Diagnosis: Colon biopsies, ascending colon sessile polyp: - Tubular adenoma. (JP:comsec manager; 03/02/2019) MBR/03/02/2019 . 02 Comment: There is no high-grade dysplasia or evidence of malignancy. (JPM:blake; 03/02/2019) . 02 Electronically signed: . Loki Dunlap MD, Pathologist NPI- [id number] . 01 Gross description: . The specimen is received in formalin, labeled "Irene Michele, ascending colon sessile polyp". Received are seven segments of pale orozco soft tissue ranging in size from 0.2 to 0.4 cm in maximum dimensions. The specimen is submitted entirely in cassette A1. ([facility]; 03/01/2019) QAC/QAC . 02 Pathologist provided ICD-10: D12.2 . 02 CPT . 334378 Specimen Comment: A courtesy copy of this report has been sent to Specimen Comment: [phone], . Specimen Comment: Report sent to / DR MARTÍNEZ Specimen Comment: A duplicate report has been generated due to demographic updates. Performed at: [facility] [address] [facility] [address], [place] [id number] MD Marlon Monge MD Phone: [phone] Performed at: [facility] [address] [place], [place] [id number] MD Loki Dunlap MD Phone: [phone]
--- NOTE | 2019-03-02 11:10 | DS ---
DATE OF DISCHARGE: 03/01/2019 PRIMARY DIAGNOSIS: Gastrointestinal bleed. ADDITIONAL DIAGNOSES: Anemia, chronic obstructive pulmonary disease, diabetes, peripheral arterial disease, history of peptic ulcer disease, colonic polyp with biopsies pending at discharge, recent superior mesenteric artery ballooning and stenting due to mesenteric ischemia. CHIEF COMPLAINT AND HISTORY OF PRESENT ILLNESS: This 68-year-old white female is well known to me from followup in the office. She had stenting of her superior mesenteric artery by interventional radiologist a week prior to the day of admission. She had had black melanotic stools since. She became progressively weaker, but has found that eating has become easier after this was ballooned and stented. She was started on aspirin after the procedure for the same. She is known to be on Protonix and has been for some time. She was found to have heme positive stool in the office, found to having a GI bleed, however, had stable vital signs in the office and was admitted to telemetry for GI consultation, transfusion as needed. SUMMARY OF STAY: The patient was admitted, hemoglobin nadired at 9.7 after coming in at 10.7 during the stay. Her aspirin was held and the melena stopped. She did have a colonoscopy done during the stay showing ascending colon sessile polyp extending over the entire fold with biopsies to rule out tubulovillous adenoma and/or lymphoma. Surgical consult was done during the stay and we will see her in a week after outpatient to decide if any kind of resection is needed. I did discuss with Interventional Radiology the aspirin and felt that she if possible should be on at least a baby aspirin a day. At the time of discharge, it was felt by GI she was safe for discharge with the bleeding and discharge was accomplished on the . DISPOSITION: The patient is discharged to home. DIET: ADA diet. ACTIVITY: As tolerated. DISCHARGE INSTRUCTIONS: Office either Wednesday or Wednesday. She is to resume her regular home medications except decrease the aspirin down to a baby aspirin daily. ANABEL MARTÍNEZ MD DR: IZA/heriberto JOB#: [id number] / [id number]
[2019-04-01] MEDS ORDERED: HYDR-3164 PO (15:01)
== END 2019-03-01 17:40 | disposition home or self-care (01) | DRG 393 ==
LOC: 6 SOUTH 13:38
PROVIDERS: ADMIT Family Medicine; ATTEND Family Medicine
PROC: 0DBK8ZX Excision of Ascending Colon, Via Natural or Artificial Opening Endoscopic, Diagnostic (ICD-10-PCS; principal; 2019-02-28 15:30)
DX: K63.5 Polyp of colon (principal); K57.31 Diverticulosis of large intestine without perforation or abscess with bleeding; K64.8 Other hemorrhoids; I10 Essential (primary) hypertension; E11.51 Type 2 diabetes mellitus with diabetic peripheral angiopathy without gangrene; M17.0 Bilateral primary osteoarthritis of knee; J44.9 Chronic obstructive pulmonary disease, unspecified; K21.9 Gastro-esophageal reflux disease without esophagitis; E78.5 Hyperlipidemia, unspecified; F32.9 Major depressive disorder, single episode, unspecified; M10.9 Gout, unspecified; D64.9 Anemia, unspecified; E89.0 Postprocedural hypothyroidism; F17.210 Nicotine dependence, cigarettes, uncomplicated; Z96.653 Presence of artificial knee joint, bilateral; Z87.11 Personal history of peptic ulcer disease; Z91.013 Allergy to seafood
CPT/HCPCS: 36415; 45380; 80053; 82274; 82962; 85025; 86850; 86900; 86901; 86920; 88305; C9113; G0500; J1200; J2250; J3010; J7030; J7120

== ENCOUNTER → 2019-05-15 | Outpatient (CLI) | payer MEDICARE, MEDICAID ==
[2019-04-01 15:00] VITALS: BP 148/56
[~2019-05-15] MED LIST changes: +HYDR-3164 PO; +IOHEXOL 300 MG/ML 100ML VIAL. IV ONE
--- NOTE | 2019-05-15 12:05 | RAD ---
EXAM: CT Chest with IV contrast CLINICAL HISTORY: Follow up lung nodule from prior CT. COMPARISON: CT 01/30/2019 TECHNIQUE: CT of the chest following the administration of intravenous contrast. Axial, coronal and sagittal reformatted images were generated. ---PQRS compliance statement - One or more of the following individualized dose reduction techniques were utilized for this study: 1. Automated exposure control 2. Adjustment of the mA and/or kV according to patient size 3. Use of iterative reconstruction technique--- FINDINGS: CHEST: Heart is not enlarged. Coronary artery calcifications are seen. Trace loculated pericardial effusion is seen anteriorly without associated mass effect. No pleural effusion or pneumothorax. The left hilar lymph node measures 1.2 x 1.1 cm. A pretracheal lymph node measures up to 0.6 cm short axis. The left thyroid is not seen, likely from surgical resection. 4 mm right thyroid nodule is seen. A 4 mm left lower lobe lung nodule (series 2 image 40) is seen. A 4 mm right middle lobe lung nodule (series 2 image 36) is seen. Bilateral emphysematous changes are seen. Visualized Upper abdomen: 6 mm enhancing focus at the hepatic dome/right hepatic lobe was not seen on prior CT abdomen pelvis, possibly perfusional variant given morphology and location. Occlusion of the celiac and SMA stent are partially profiled. Bones: Multilevel degenerative changes of the spine are seen. Degenerative changes are most prominent at T8-9 with endplate sclerosis and disc height loss. IMPRESSION: 1. Multiple bilateral lung nodules measure <6 mm. Follow-up in [address] is recommended. 2. Emphysematous changes are seen. 3. Prominent and borderline enlarged mediastinal and hilar lymph nodes are seen, possibly reactive. Electronically signed by: Christ Hardwick MD (05/15/2019 12:02 PM) [facility]
== END | disposition home or self-care (01) ==
LOC: CT 08:19
PROVIDERS: ATTEND Family Medicine
DX: J43.9 Emphysema, unspecified (principal); R91.8 Other nonspecific abnormal finding of lung field; J98.59 Other diseases of mediastinum, not elsewhere classified; I25.10 Atherosclerotic heart disease of native coronary artery without angina pectoris; E04.1 Nontoxic single thyroid nodule
CPT/HCPCS: 71260; Q9967

== ENCOUNTER → 2019-10-06 | Outpatient (CLI) | payer MEDICARE, MEDICAID ==
[2019-04-01 15:00] VITALS: BP 148/56
[~2019-10-06] MED LIST changes: +BARIUM SULFATE 60% 355 ML SUSP PO ONE; -IOHEXOL 300 MG/ML 100ML VIAL. IV ONE
--- NOTE | 2019-10-06 11:16 | RAD ---
Examination: SMALL BOWEL SERIES History: Left-sided abdominal pain. Symptoms for 2 weeks. Partial colon resection is reported. Comparison/Correlation: 01/30/2019 CT abdomen and pelvis with IV and oral contrast Findings: Laundry Technician views were obtained. Moderate quantity of stool in the colon is present. Fluoroscopy was utilized for 1.3 minutes. A total of 14 fluoroscopic images were provided. Contrast reaches the colon by 40 minutes. No suspicious filling defect on small bowel identified. Mild relative narrowing of the left lower abdominal small bowel loops is present without obstruction. Terminal ileum is not optimally delineated. No stricture involving the right lower quadrant. Impression: Mild relative narrowing of lower abdominal small bowel without obstruction. No definite or significant stricture. Electronically signed by: Gideon Nash MD (10/06/2019 11:14 AM) [facility]
== END | disposition home or self-care (01) ==
LOC: RAD 08:54
PROVIDERS: ATTEND Internal Medicine Gastroenterology
DX: K31.89 Other diseases of stomach and duodenum (principal); D64.9 Anemia, unspecified
CPT/HCPCS: 74250

== ENCOUNTER → 2019-10-27 | Outpatient (CLI) | payer MEDICARE, MEDICAID ==
[2019-04-01 15:00] VITALS: BP 148/56
[~2019-10-27] MED LIST changes: -BARIUM SULFATE 60% 355 ML SUSP PO ONE
--- NOTE | 2019-10-27 08:30 | RAD ---
Examination: LIMITED ABDOMINAL DOPPLER History: Postprandial abdominal pain Comparison/Correlation: 02/06/2019 CTA of the abdomen Findings: Duplex ultrasound examination of the abdomen was performed the following peak systolic velocities were obtained in centimeters per second: Proximal abdominal aorta 61.7 Mid abdominal aorta 75.6 Distal abdominal aorta 115 Celiac artery 108.9 Mid hepatic artery 81.8 Proximal superior mesenteric artery 80.4 Mid superior mesenteric artery 293 Distal superior mesenteric artery velocity could not be obtained Spectral waveforms are unremarkable except for the mid superior mesenteric artery with the elevated velocity noted. Impression: Abnormally high mid superior mesenteric artery peak systolic velocity corresponding to known stenosis. Electronically signed by: Gideon Nash MD (10/27/2019 8:28 AM) [facility]
== END | disposition home or self-care (01) ==
LOC: US 07:10
PROVIDERS: ATTEND Family Medicine
DX: K55.1 Chronic vascular disorders of intestine (principal)
CPT/HCPCS: 93976

== ENCOUNTER → 2019-11-13 | Outpatient (CLI) | payer MEDICARE, MEDICAID ==
[2019-04-01 15:00] VITALS: BP 148/56
[~2019-11-13] MED LIST changes: +IOHEXOL 350 MG/ML 100 ML VIAL. IV ONE
[2019-11-13 08:57] LABS: CREATININE 0.9 mg/dL (0.6-1.0); GFR 62.1
--- NOTE | 2019-11-13 16:37 | RAD ---
CT angiography abdomen HISTORY: Superior mesenteric artery stenosis , , Technique: Computed tomographic images of abdomen were performed. Omnipaque 350 nonionic contrast material was administered intravenously without incident.: 90 CC PQRS Compliance Statement: One or more of the following individualized dose reduction techniques were utilized for this examination: 1. Automated exposure control 2. Adjustment of the mA and/or kV according to patient size 3. Use of iterative reconstruction technique Comparison: February 06, 2019 FINDINGS: Interval stent placement in the origin of the superior mesenteric artery is present. There is interval thrombosis of the superior mesenteric artery distal to the stent placement approximately 40 mm in length. 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 There is definitely collateralized flow from the inferior mesenteric artery to the distal superior mesenteric artery. Although flow collection is not certain there appears to be suspected collateralized flow from the severely stenotic celiac artery through the pancreaticoduodenal arcade to the superior mesenteric artery. The left hepatic artery arises from the left gastric artery and its quite large in size and there are large collaterals from the phrenic arteries into the gastric and hepatic collaterals that may in part be retrograde filling the celiac vasculature. The splenic artery is occluded in its midportion and appears to have collateralized flow to the spleen from short gastric and distal pancreatic collaterals. Liver, gallbladder, spleen, adrenal glands and pancreas appear unremarkable. Kidneys appear stable. There is a small right-sided suspected ganglion type hernia which appears to only contain fat. No evidence of bowel obstruction is present. There is prominent vascular enhancement of the cecum that probably is reflective of collateralized demand to the intestinal vasculature after the SMA occlusion. A vascular malformation was not seen on past studies but is not entirely excluded. Lung bases clear. IMPRESSION: Interval stent of the superior mesenteric artery which is occluded along with an additional 30 mm of proximal superior mesenteric artery. 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 Prominent collateralized flow to the celiac and SMA distributions from LUPILLO collaterals and through gastric and hepatic collateral flow Right spighellian hernia which appears to only contain fat and certainly has no bowel obstruction evident Electronically signed by: Joey Whipple MD (11/13/2019 4:35 PM) [facility]
== END | disposition home or self-care (01) ==
LOC: CT 13:32
PROVIDERS: ATTEND Family Medicine
DX: I77.4 Celiac artery compression syndrome (principal); I70.8 Atherosclerosis of other arteries
CPT/HCPCS: 36415; 74175; 82565; 84520; Q9967

== ENCOUNTER 2019-12-05 20:56 | Inpatient (IN) | payer MEDICARE, MEDICAID ==
[~2019-12-05] VITALS: Ht 172.7 cm; Wt 78.8 kg
[~2019-12-05 20:56] MED LIST changes: -IOHEXOL 350 MG/ML 100 ML VIAL. IV ONE
[2019-12-06] MEDS ORDERED: IV NORMAL SALINE 1000ML BAG 1,000 ML IV ONE (05:15)
[2019-12-06] MEDS ORDERED: fentaNYL PF VIAL 100 MCG/2 ML VIAL IVP ONE (05:15)
[2019-12-06] MEDS ORDERED: ONDANSETRON PF 4 MG/2 ML VIAL. IVP ONE (05:15)
[2019-12-06 05:17] LABS: BILIRUBIN,URINE SMALL (NEG); CLARITY,URINE CLEAR; COLOR,URINE AMBER; NITRITE,URINE NEGATIVE (NEG); PH,URINE 5.5; PROTEIN,URINE 30 mg/dL (NEG-TRACE)
[2019-12-06 05:19] LABS: BASO # 0.1 x10^3/uL (0.0-0.2); BASO % 1 % (0-3); EOS # 0.2 x10^3/uL (0.0-0.7); EOS % 2 % (0-3); HEMATOCRIT 34.2 % (36.0-47.0); HEMOGLOBIN 10.5 g/dL (12.0-15.5); LYMPH % 23 % (24-48); MEAN CORPUSCULAR HEMOGLOBIN 23 pg (25-35); MEAN CORPUSCULAR HGB CONC 31 g/dL (31-37); MEAN CORPUSCULAR VOLUME 76 fL (79-100); MONO # 1.2 x10^3/uL (0.0-1.1); MONO % 10 % (0-9); NEUT # 8.4 x10^3/uL (1.8-7.7); NEUT % 65 % (31-73); PLATELET COUNT 383 x10^3/uL (140-400); RED BLOOD COUNT 4.53 x10^6/uL (3.50-5.40); RED CELL DISTRIBUTION WIDTH 20.6 % (11.5-14.5); WHITE BLOOD COUNT 12.9 x10^3/uL (4.0-11.0)
--- NOTE | 2019-12-06 05:19 | PHYS DOC ---
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 Pain is rated as moderate to severe. Patient is not currently taking home pain medications. Denies nausea, vomiting, constipation diarrhea. No fevers chills, sweats. As mesenteric artery stenosis and pain management of the patient's PCP. Patient states that she contacted him this morning was instructed to come to the emergency department for hospital admission and surgical evaluation.[] Review of Systems Review of Systems ROS as per HPI All other systems were reviewed and found to be within normal limits, except as documented in this note. Current Medications Current Medications Current Medications Medications (Trade) Dose Ordered Sig/Kira Start Time Stop Time Status Last Admin Dose Admin Fentanyl Citrate (Fentanyl 2ml Vial) 50 mcg 1X ONCE 12/06/19 05:15 12/06/19 05:16 Ondansetron HCl (Zofran) 4 mg 1X ONCE 12/06/19 05:15 12/06/19 05:16 UNV Sodium Chloride 1,000 ml @ 1,000 mls/hr 1X ONCE 12/06/19 05:15 12/06/19 06:14 UNV Allergies Allergies Allergies Coded Allergies Type Severity Reaction Last Updated Verified shrimp Allergy Intermediate Rash 03/29/19 Yes Physical Exam Physical Exam Constitutional: Well developed, well nourished, no acute distress, non-toxic appearance. [] HENT: Normocephalic, atraumatic, bilateral external ears normal, oropharynx moist, no oral exudates, nose normal. [] Eyes: PERRLA, EOMI, conjunctiva normal, no discharge. [] Neck: Normal range of motion, no tenderness, supple, no stridor. [] Cardiovascular:Heart rate regular rhythm, no murmur [] Lungs & Thorax: Bilateral breath sounds clear to auscultation [] Abdomen: Bowel sounds normal, soft, no tenderness, lower abdominal wall hernia, nonincarcerated [] Skin: Warm, dry, no erythema, no rash. [] Back: No tenderness. [] Extremities: No tenderness, no edema. [] Neurologic: Alert and oriented X 3, normal motor function, normal sensory function, no focal deficits noted. [] Psychologic: Affect normal, judgement normal, mood normal. [] Current Patient Data Vital Signs Vital Signs Date Time Temp Pulse Resp B/P (MAP) Pulse Ox O2 Delivery O2 Flow Rate FiO2 12/05/19 21:10 98.1 101 18 142/76 (98) 93 Room Air 98.1 EKG EKG [] Radiology/Procedures Radiology/Procedures [11/13 Ct angio abdomen: IMPRESSION: Interval stent of the superior mesenteric artery which is occluded along with an additional 30 mm of proximal superior mesenteric artery. 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 Prominent collateralized flow to the celiac and SMA distributions from LUPILLO collaterals and through gastric and hepatic collateral flow Right spighellian hernia which appears to only contain fat and certainly has no bowel obstruction evident] Course & Med Decision Making Course & Med Decision Making Pertinent Labs and Imaging studies reviewed. (See chart for details) [Pain addressed. Known mesenteric artery stenosis and lower abdominal wall hernia.up spending Will contact patient's PCP to coordinate further management with the disposition and treatment plan. ] Dragon Disclaimer Dragon Disclaimer This electronic medical record was generated, in whole or in part, using a voice recognition dictation system. Departure Departure Impression: Primary Impression: Lower abdominal pain of unknown etiology Additional Impressions: Mesenteric artery stenosis Abdominal wall hernia Disposition: ADMITTED INPATIENT Admitting Physician: Anabel Martínez Condition: STABLE Referrals: ANABEL MARTÍNEZ MD (PCP) Problem Qualifiers BARBY HOUSER DO Dec 06, 2019 05:18
[2019-12-06 05:28] LABS: BACTERIA,URINE MODERATE /HPF (0-FEW); SQUAMOUS EPITHELIAL CELL,UR MOD /LPF
[2019-12-06 05:29] LABS: HYALINE CASTS, URINE MODERATE /HPF
[2019-12-06] MEDS ORDERED: MORPHINE SULFATE 2 MG/ML VIAL. IV PRN (05:45)
[2019-12-06] MEDS ORDERED: ONDANSETRON PF 4 MG/2 ML VIAL. IV PRN (05:45)
[2019-12-06 05:49] LABS: ALBUMIN 3.3 g/dL (3.4-5.0); ALBUMIN/GLOBULIN RATIO 0.8 (1.0-1.7); CALCIUM 9.3 mg/dL (8.5-10.1); CREATININE 0.7 mg/dL (0.6-1.0); POTASSIUM 3.7 mmol/L (3.5-5.1); TOTAL BILIRUBIN 0.3 mg/dL (0.2-1.0); TOTAL PROTEIN 7.2 g/dL (6.4-8.2)
[2019-12-06 07:15] VITALS: BP 136/56
--- NOTE | 2019-12-06 08:09 | PDOC ---
GENERAL General: admitted with severe ongoing abdominal pain from mesenteric ischemia. unable to address by IR and will need vascular surgery correction of problem. VITAL SIGNS/I&O Vital Signs/I&O: Vital Signs Date Time Temp Pulse Resp B/P (MAP) Pulse Ox O2 Delivery O2 Flow Rate FiO2 12/06/19 07:15 97.8 82 20 136/56 (82) 97 Room Air 97.8 I & O 12/05/19 12/05/19 12/06/19 15:00 23:00 07:00 Intake Total 1000 ml Balance 1000 ml ALLERGIES Allergies: Allergies Coded Allergies Type Severity Reaction Last Updated Verified shrimp Allergy Intermediate Rash 03/29/19 Yes MEDS Medications: Current Medications Medications (Trade) Dose Ordered Sig/Kira Route PRN Reason Start Time Stop Time Status Last Admin Dose Admin Fentanyl Citrate (Fentanyl 2ml Vial) 50 mcg 1X ONCE IVP 12/06/19 05:15 12/06/19 05:16 DC 12/06/19 05:20 Ondansetron HCl (Zofran) 4 mg 1X ONCE IVP 12/06/19 05:15 12/06/19 05:16 DC 12/06/19 05:20 Sodium Chloride 1,000 ml @ 1,000 mls/hr 1X ONCE IV 12/06/19 05:15 12/06/19 06:14 DC 12/06/19 05:20 LAB Lab: Laboratory Tests Test 12/06/19 04:55 12/06/19 05:12 12/06/19 07:36 Urine Collection Type Void Urine Color Sia Urine Clarity Clear Urine pH 5.5 Urine Specific [place] 1.025 Urine Protein 30 mg/dL (NEG-TRACE) Urine Glucose (UA) Negative mg/dL (NEG) Urine Ketones (Stick) Negative mg/dL (NEG) Urine Blood Negative (NEG) Urine Nitrite Negative (NEG) Urine Bilirubin Small (NEG) Urine Urobilinogen Dipstick 1.0 mg/dL (0.2 mg/dL) Urine Leukocyte Esterase Small (NEG) Urine RBC 3-5 /HPF (0-2) Urine WBC 11-20 /HPF (0-4) Urine Squamous Epithelial Cells Mod /LPF Urine Bacteria Moderate /HPF (0-FEW) Urine Cellular Casts Occ /HPF Urine Hyaline Casts Moderate /HPF Urine Mucus Mod /LPF White Blood Count 12.9 x10^3/uL (4.0-11.0) H Red Blood Count 4.53 x10^6/uL (3.50-5.40) Hemoglobin 10.5 g/dL (12.0-15.5) L Hematocrit 34.2 % (36.0-47.0) L Mean Corpuscular Volume 76 fL (79-100) L Mean Corpuscular Hemoglobin 23 pg (25-35) L Mean Corpuscular Hemoglobin Concent 31 g/dL (31-37) Red Cell Distribution Width 20.6 % (11.5-14.5) H Platelet Count 383 x10^3/uL (140-400) Neutrophils (%) (Auto) 65 % (31-73) Lymphocytes (%) (Auto) 23 % (24-48) L Monocytes (%) (Auto) 10 % (0-9) H Eosinophils (%) (Auto) 2 % (0-3) Basophils (%) (Auto) 1 % (0-3) Neutrophils # (Auto) 8.4 x10^3/uL (1.8-7.7) H Lymphocytes # (Auto) 3.0 x10^3/uL (1.0-4.8) Monocytes # (Auto) 1.2 x10^3/uL (0.0-1.1) H Eosinophils # (Auto) 0.2 x10^3/uL (0.0-0.7) Basophils # (Auto) 0.1 x10^3/uL (0.0-0.2) Platelet Estimate Pending Sodium Level 141 mmol/L (136-145) Potassium Level 3.7 mmol/L (3.5-5.1) Chloride Level 102 mmol/L (98-107) Carbon Dioxide Level 27 mmol/L (21-32) Anion Gap 12 (6-14) Blood Urea Nitrogen 26 mg/dL (7-20) H Creatinine 0.7 mg/dL (0.6-1.0) Estimated GFR (Cockcroft-Gault) 83.0 BUN/Creatinine Ratio 37 (6-20) H Glucose Level 125 mg/dL (70-99) H Lactic Acid Level 1.3 mmol/L (0.4-2.0) Calcium Level 9.3 mg/dL (8.5-10.1) Total Bilirubin 0.3 mg/dL (0.2-1.0) Aspartate Amino Transferase (AST) 22 U/L (15-37) Alanine Aminotransferase (ALT) 19 U/L (14-59) Alkaline Phosphatase 165 U/L (46-116) H Total Protein 7.2 g/dL (6.4-8.2) Albumin 3.3 g/dL (3.4-5.0) L Albumin/Globulin Ratio 0.8 (1.0-1.7) L Lipase 95 U/L (73-393) Glucose (Fingerstick) 106 mg/dL (70-99) H Laboratory Tests 12/06/19 05:12 Laboratory Tests 12/06/19 05:12 ANABEL MARTÍNEZ MD Dec 06, 2019 08:09
--- NOTE | 2019-12-06 08:38 | PDOC2 ---
CONSULT Date of Consult Date of Consult DATE: 12/06/19 TIME: 08:32 Reason for Consult Reason for Consult: Mesenteric ischemia Referring Physician Referring Physician: Dr. Kendrick Identification/Chief Complaint Chief Complaint Abdominal pain Source Source: Chart review, Patient History of Present Illness Reason for Visit: This is a pleasant 69-year-old female who presents to the hospital with increasing abdominal pain, postprandial pain, and weight loss. Patient has a history of mesenteric ischemia with a superior mesenteric artery stent placed in January 2019. Patient was noted to have occlusion of the SMA stent by CT angiogram on 11/13/2019. Patient reports continued chronic abdominal pain. Patient denies any recent nausea, vomiting, constipation or diarrhea. Patient does report history of GI bleed and GI polyps with right colectomy. Patient denies any melana or hematochezia. The patient does smoke. Past Medical History Cardiovascular: HTN, Other Pulmonary: COPD GI: Peptic Ulcer disease, Other Endocrine: Diabetes Past Surgical History Past Surgical History: Hernia Repair Family History Family History: No Significant Social History <1 pack per day ALCOHOL: none Drugs: None Current Problem List Problem List Problems Medical Problems: (1) Abdominal wall hernia Status: Acute (2) Lower abdominal pain of unknown etiology Status: Acute (3) Mesenteric artery stenosis Status: Acute Current Medications Current Medications Current Medications Fentanyl Citrate (Fentanyl 2ml Vial) 50 mcg 1X ONCE IVP Last administered on 12/06/19at 05:20; Start 12/06/19 at 05:15; Stop 12/06/19 at 05:16; Status DC Ondansetron HCl (Zofran) 4 mg 1X ONCE IVP Last administered on 12/06/19at 05:20; Start 12/06/19 at 05:15; Stop 12/06/19 at 05:16; Status DC Sodium Chloride 1,000 ml @ 1,000 mls/hr 1X ONCE IV Last administered on 12/06/19at 05:20; Start 12/06/19 at 05:15; Stop 12/06/19 at 06:14; Status DC Ondansetron HCl (Zofran) 4 mg PRN Q8HRS PRN IV NAUSEA/VOMITING; Start 12/06/19 at 05:45; Stop 12/07/19 at 05:44 Morphine Sulfate (Morphine Sulfate) 2 mg PRN Q2HR PRN IV PAIN; Start 2/12/20 at 05:45; Stop 12/07/19 at 05:44 Sodium Chloride 1,000 ml @ 75 mls/hr [id number] IV ; Start 12/06/19 at 05:45; Stop 12/07/19 at 05:44 Active Scripts Active [place] 5-325 Tablet (Acetaminophen/Hydrocodone Bitart) 1 Each Tablet 1 Tab PO PRN Q6HRS PRN Reported Protonix (Pantoprazole Sodium) 20 Mg Tablet.dr 40 Mg PO DAILY Actos (Pioglitazone Hcl) 30 Mg Tablet 30 Mg PO DAILY Pravastatin Sodium 20 Mg Tablet 20 Mg PO QHS Allopurinol 100 Mg Tablet 300 Mg PO DAILY Cymbalta (Duloxetine Hcl) 60 Mg Capsule.dr 60 Mg PO DAILY Allergies Allergies: Coded Allergies: shrimp (Verified Allergy, Intermediate, Rash, 03/29/19) ROS Review of System Constitutional: Denies fever or chills Eyes: Denies any visual disturbances HENT: Denies nasal congestion or sore throat Respiratory: Denies cough or shortness of breath Cardiovascular: Denies any palpitations or chest pain GI: As per HPI : Denies dysuria or hematuria Musculoskeletal: Denies any lower extremity claudication Integument: No rashes or lesions Neurologic: No gross deficits Physical Exam Physical Exam Gen.: Alert and oriented 3. Cardiac: Heart rate regular. Normal carotid pulses. Lungs: CTA, nonlabored respirations. Abdomen: Soft, mild tenderness, nondistended, no palpable masses. Extremities: 2+ bilateral radial, femoral and distal pulses. Skin: No rashes or lesions. Neurological: Motor and sensation intact Vitals VITALS Vital Signs Date Time Temp Pulse Resp B/P (MAP) Pulse Ox O2 Delivery O2 Flow Rate FiO2 12/06/19 07:15 97.8 82 20 136/56 (82) 97 Room Air 97.8 Labs Labs labs reviewed Assessment/Plan Assessment/Plan 69-year-old female with mesenteric ischemia status post superior mesenteric stent placement which is now occluded. The patient has ongoing abdominal and postprandial pain with weight loss. Patient was seen and examined along with Dr. Pinto. Recommend open procedure with superior mesenteric artery bypass. Recommend repeat CT angiogram, last CTA one monnth ago. Will obtain preoperative cardiac evaluation. Will obtain gastrointestinal evaluation due to past gastrointestinal bleed patient will need to anticoagulated during surgical procedure. Recommend carotid ultrasound and lower extremity vein mapping. Tentatively will schedule for early next week. Will follow-up and review all imaging results and make ad ditional recommendations as needed. Recommend smoking cessation, discussed with patient and she expresses willingness to quit. Patient is tentatively scheduled for 12/13/2019 for Open SMA bypass. TIANNA RAMIRES APRN Dec 06, 2019 08:38
[2019-12-06] MEDS: IV NORMAL SALINE 1000ML BAG 1,000 ML IV SCH ×2 (08:40→21:23)
[2019-12-06] MEDS ORDERED: CELE200C PO (08:46)
[2019-12-06] MEDS ORDERED: IOHEXOL 350 MG/ML 100 ML VIAL. IV ONE (09:15)
[2019-12-06] MEDS ORDERED: CONTRAST GIVEN. MC PRN (09:15)
--- NOTE | 2019-12-06 09:35 | PDOC2 ---
JUANA JETT COAL HIKER 12/06/19 0935: CARDIAC CONSULT DATE OF CONSULT Date of Consult DATE: 12/06/19 TIME: 09:32 REASON FOR CONSULT Reason for Consult: preop eval, needs open SMA bypass REFERRING PHYSICIAN Referring Physician: Sharif SOURCE Source: Chart review, Patient HISTORY OF PRESENT ILLNESS HISTORY OF PRESENT ILLNESS This is a pleasant 69 yo female admitted for complains of abdominal pain. Further imaging noted with SMA occlusion. She had stent in the SMA about a yr ago which is now occluded and also significnat for hx of PAD to LE with stents in the past. Apparently she had GI bleed lasty close to her SMA stenting prompting removal of antiplatelet therapy as she reported. Her abdominal pain has been going on for about 3 months but was worse in the last few days. She has lost 70 pounds as she has not been able to take in any food due to her pain and nausea. No chest pain, palpitations, or SOA. No hx of CAD and does not have an established roasterman. Again no exertional CP nor ZHAO. 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) FAMILY HISTORY Family History noncontributory SOCIAL HISTORY Smoke: <1 pack per day ALCOHOL: none Drugs: None Lives: with Family CURRENT MEDICATIONS CURRENT MEDICATIONS Current Medications Medications (Trade) Dose Ordered Sig/Kira Route PRN Reason Start Time Stop Time Status Last Admin Dose Admin Fentanyl Citrate (Fentanyl 2ml Vial) 50 mcg 1X ONCE IVP 12/06/19 05:15 12/06/19 05:16 DC 12/06/19 05:20 Ondansetron HCl (Zofran) 4 mg 1X ONCE IVP 12/06/19 05:15 12/06/19 05:16 DC 12/06/19 05:20 Sodium Chloride 1,000 ml @ 1,000 mls/hr 1X ONCE IV 12/06/19 05:15 12/06/19 06:14 DC 12/06/19 05:20 Morphine Sulfate (Morphine Sulfate) 2 mg PRN Q2HR PRN IV PAIN 12/06/19 05:45 12/07/19 05:44 12/06/19 08:59 Sodium Chloride 1,000 ml @ 75 mls/hr [id number] IV 12/06/19 05:45 12/07/19 05:44 12/06/19 08:40 ALLERGIES ALLERGIES: Coded Allergies: shrimp (Verified Allergy, Intermediate, Rash, 03/29/19) ROS Review of System 14 point ROS evaluated with pertinent positives noted per HPI PHYSICAL EXAM General: Alert, Oriented X3, Cooperative, No acute distress HEENT: Atraumatic, Mucous membr. moist/pink Lungs: Clear to auscultation, Normal air movement Heart: Regular rate (SR per EKG), Normal S1, Normal S2 Abdomen: Other (some abd tenderness) Extremities: No cyanosis, No edema Skin: No breakdown, No significant lesion Neuro: Normal speech, Sensation intact Psych/Mental Status: Mental status NL, Mood NL MUSCULOSKELETAL: Osteoarthritic changes both hands VITALS/I&O VITALS/I&O: Vital Signs Date Time Temp Pulse Resp B/P (MAP) Pulse Ox O2 Delivery O2 Flow Rate FiO2 12/06/19 09:20 Room Air 12/06/19 08:59 97 12/06/19 07:15 97.8 82 20 136/56 (82) 97.8 I & O 12/05/19 12/05/19 12/06/19 15:00 23:00 07:00 Intake Total 1000 ml Balance 1000 ml LABS Lab: Laboratory Tests Test 12/06/19 04:55 12/06/19 05:12 12/06/19 07:36 Urine Collection Type Void Urine Color Sia Urine Clarity Clear Urine pH 5.5 Urine Specific [place] 1.025 Urine Protein 30 mg/dL (NEG-TRACE) Urine Glucose (UA) Negative mg/dL (NEG) Urine Ketones (Stick) Negative mg/dL (NEG) Urine Blood Negative (NEG) Urine Nitrite Negative (NEG) Urine Bilirubin Small (NEG) Urine Urobilinogen Dipstick 1.0 mg/dL (0.2 mg/dL) Urine Leukocyte Esterase Small (NEG) Urine RBC 3-5 /HPF (0-2) Urine WBC 11-20 /HPF (0-4) Urine Squamous Epithelial Cells Mod /LPF Urine Bacteria Moderate /HPF (0-FEW) Urine Cellular Casts Occ /HPF Urine Hyaline Casts Moderate /HPF Urine Mucus Mod /LPF White Blood Count 12.9 x10^3/uL (4.0-11.0) H Red Blood Count 4.53 x10^6/uL (3.50-5.40) Hemoglobin 10.5 g/dL (12.0-15.5) L Hematocrit 34.2 % (36.0-47.0) L Mean Corpuscular Volume 76 fL (79-100) L Mean Corpuscular Hemoglobin 23 pg (25-35) L Mean Corpuscular Hemoglobin Concent 31 g/dL (31-37) Red Cell Distribution Width 20.6 % (11.5-14.5) H Platelet Count 383 x10^3/uL (140-400) Neutrophils (%) (Auto) 65 % (31-73) Lymphocytes (%) (Auto) 23 % (24-48) L Monocytes (%) (Auto) 10 % (0-9) H Eosinophils (%) (Auto) 2 % (0-3) Basophils (%) (Auto) 1 % (0-3) Neutrophils # (Auto) 8.4 x10^3/uL (1.8-7.7) H Lymphocytes # (Auto) 3.0 x10^3/uL (1.0-4.8) Monocytes # (Auto) 1.2 x10^3/uL (0.0-1.1) H Eosinophils # (Auto) 0.2 x10^3/uL (0.0-0.7) Basophils # (Auto) 0.1 x10^3/uL (0.0-0.2) Platelet Estimate Pending Sodium Level 141 mmol/L (136-145) Potassium Level 3.7 mmol/L (3.5-5.1) Chloride Level 102 mmol/L (98-107) Carbon Dioxide Level 27 mmol/L (21-32) Anion Gap 12 (6-14) Blood Urea Nitrogen 26 mg/dL (7-20) H Creatinine 0.7 mg/dL (0.6-1.0) Estimated GFR (Cockcroft-Gault) 83.0 BUN/Creatinine Ratio 37 (6-20) H Glucose Level 125 mg/dL (70-99) H Lactic Acid Level 1.3 mmol/L (0.4-2.0) Calcium Level 9.3 mg/dL (8.5-10.1) Total Bilirubin 0.3 mg/dL (0.2-1.0) Aspartate Amino Transferase (AST) 22 U/L (15-37) Alanine Aminotransferase (ALT) 19 U/L (14-59) Alkaline Phosphatase 165 U/L (46-116) H Total Protein 7.2 g/dL (6.4-8.2) Albumin 3.3 g/dL (3.4-5.0) L Albumin/Globulin Ratio 0.8 (1.0-1.7) L Lipase 95 U/L (73-393) Glucose (Fingerstick) 106 mg/dL (70-99) H Laboratory Tests 12/06/19 05:12 Laboratory Tests 12/06/19 05:12 ASSESSMENT/PLAN ASSESSMENT/PLAN 1. Abd pain with occluded stent to SMA: needing bypass 2. Preop cardiac eval 3. Shrimp allergy 4. DM2: per PCP 5. HLP 6. Hx of LE PAD with stents: no claudications, wounds 7. Hx of PUD/GI bleed 8. COPD with tobaccoism Recommendations EKG revealed SR with possible inferior SD in the past. TTE today. No cardiac symptoms. Cardiac risk index revealed.moderate risk for perioperative CV events. Continue statin. Antiplatelet to resume post op per vascular Will follow post op. Will establish cardiology care as an outpt smoking cessation IGNACIO ROUSSEAU MD 12/06/19 2100: CARDIAC CONSULT ASSESSMENT/PLAN ASSESSMENT/PLAN Patient seen and examined. agree with FAMILY CONSUMER SCIENCE FCS TEACHER's assessment and plan. 2D echo showed normal LVF without wall motion abnormalities Agree that patient is at moderate risk for periop CV events Thank you for your consultation JUANA JETT APRN Dec 06, 2019 09:35 IGNACIO ROUSSEAU MD Dec 06, 2019 21:00
--- NOTE | 2019-12-06 10:01 | EKG ---
[facility] [address] [place] [address] Test Date: 2019-12-06 Test Time: 09:56:15 Pat Name: CHOCO YEH Department: Room: [facility] Gender: F Electrical Intern: SHRUTHI : 1950 Requested By: JUANA JETT Order Number: [id number] Reading MD: Measurements Intervals [place] Rate: 81 P: 54 NE: 150 QRS: 53 QRSD: 90 T: 68 QT: 380 QTc: 447 Interpretive Statements SINUS RHYTHM NORMAL ECG RI6.02 No previous ECG available for comparison
--- NOTE | 2019-12-06 10:24 | RAD ---
Clinical indications: Preoperative evaluation. History of SMA stenosis. The patient is 69 years old. Duplex sonography of the cervical portion of both carotid arteries was performed including color flow imaging and spectral waveform analysis with flow velocity measurement and peterson scale evaluation. Right side: Peak systolic flow velocity of the CCA is 119 cm/sec. Peak systolic flow velocity of the ICA is 132 cm/sec. Thus, the ICA/CCA ratio is 1.1. Peak end diastolic flow velocity of the ICA is 37 cm/sec. The peak systolic velocity of the ECA is 133 cm/sec. Left side: Peak systolic flow velocity of the CCA is 174 cm/sec. Peak systolic flow velocity of the ICA is 216 cm/sec. Thus, the ICA/CCA ratio is 1.2. Peak end diastolic flow velocity of the ICA is 32 cm/sec. Peak systolic flow velocity of the ECA is 173 cm/sec. Mild calcified plaque formation is seen within the right carotid bulb and origin of the right ICA which is less than 50 percent. There is more prominent mild plaque formation within the left carotid bulb which is less than 50 percent based on ratio.. Antegrade vertebral flow is seen bilaterally. The measurements were made using the NASCET criteria. Impression: Mild plaque formation is seen within the carotid bifurcations bilaterally which is less than 50 percent. Electronically signed by: Alex Green MD (12/06/2019 10:21 AM) [facility]
--- NOTE | 2019-12-06 10:32 | RAD ---
Duplex sonography of bilateral lower extremity venous system-vein mapping Clinical indications: Preoperative evaluation. Vein mapping of greater saphenous and lesser saphenous veins of both lower extremities FINDINGS: Duplex sonography of the greater saphenous and lesser saphenous veins of both lower extremities was performed including grayscale evaluation and color flow and waveform spectral analysis compressibility. Vein map was drawn and placed into the patient's PACS record. Right leg-the greater saphenous and lesser saphenous veins are compressible and patent. The caliber of the greater saphenous vein within the upper thigh is 6.6 mm and the caliber of the greater saphenous vein at the level of the ankle is 2.2 mm. The caliber of the lesser saphenous vein within the upper calf is 4.4 mm and the caliber of the lesser saphenous vein at the level of the inferior calf is 2.8 mm. Left leg-the greater saphenous and lesser saphenous veins are compressible and patent. The caliber of the greater saphenous vein within the upper thigh is 4.5 mm and the caliber of the greater saphenous vein at the level of the ankle is 3.7 mm. The caliber of the lesser saphenous vein within the upper calf is 3.3 mm and within the distal calf is 2.6 mm. IMPRESSION: Greater saphenous and lesser saphenous veins of both lower extremities are patent. Vein map was performed bilaterally. Electronically signed by: Alex Green MD (12/06/2019 10:29 AM) [facility]
[2019-12-06 10:54] LABS: ANISOCYTOSIS MOD; HYPOCHROMIA SLIGHT; PLT ESTIMATE ADEQUATE (ADEQUATE); POIKILOCYTOSIS PRESENT
[2019-12-06 10:55] LABS: OVALOCYTES OCC
[2019-12-06 11:25] VITALS: BP 131/78
--- NOTE | 2019-12-06 12:21 | RAD ---
CT angiography of the abdomen and pelvis. INDICATION: Chronic mesenteric ischemia, previously stented SMA, and the previously thrombosed. Possible forthcoming surgical bypass. Technique: CT imaging of the abdomen and pelvis performed following the administration of IV contrast. 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 This is unchanged. Persistently occluded superior mesenteric artery stent. Thrombosis extends distally into the nondistended SMA, to a essentially identical extent with respect to comparison study. The inferior mesenteric artery is patent, and appears to be supplying collateral flow. Similar hypertrophy of upper abdominal vessels including left hepatic artery, and gastric arteries again noted. . Liver, gallbladder, spleen, adrenal glands and pancreas appear unremarkable. Kidneys appear stable. There is a small right-sided suspected spigelian type hernia which appears to only contain fat. No evidence of bowel obstruction is present. There is prominent vascular enhancement of the cecum that probably is reflective of collateralized demand to the intestinal vasculature after the SMA occlusion. A vascular malformation was not seen on past studies but is not entirely excluded. Lung bases are stable in appearance. 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 The inferior mesenteric artery remains patent. PQRS Compliance Statement: One or more of the following individualized dose reduction techniques were utilized for this examination: 1. Automated exposure control 2. Adjustment of the mA and/or kV according to patient size 3. Use of iterative reconstruction technique Electronically signed by: Fady Beltrán MD (12/06/2019 12:18 PM) [id number]
--- NOTE | 2019-12-06 12:39 | NUR ---
SW following. Discussed with RN, pt from home alone, echo ordered. Pt tentatively scheduled for an open SMA bypass on 12/13/2019. SW will continue to follow.
--- NOTE | 2019-12-06 13:21 | CARD ---
MR#: [id number] Date of Study: 12/06/2019 Ordering Physician: JUANA JETT, Referring Physician: JUANA JETT, Tech: Luis Bowser GALINA APPROVED REPORT EXAM: Two-dimensional and M-mode echocardiogram with Doppler and color Doppler. Other Information Quality : AverageHR: 80bpm INDICATION Pre-op 2D DIMENSIONS RVDd2.9 (2.9-3.5cm)Left Atrium(2D)3.7 (1.6-4.0cm) IVSd1.3 (0.7-1.1cm)Aortic Root(2D)2.8 (2.0-3.7cm) LVDd4.2 (3.9-5.9cm)LVOT Diameter2.2 (1.8-2.4cm) PWd1.4 (0.7-1.1cm)LVDs3.3 (2.5-4.0cm) FS (%) 21.8 %SV34.4 ml LVEF(%)44.4 (>50%) Aortic Valve AoV Peak Scottie.145.2cm/Mindy Peak GR.8.4mmHg LVOT Peak Scottie.124.8cm/sAVA (VMAX)3.18cm2 Mitral Valve MV E Eexyuruh70.2cm/sMV DECEL [id number] MV A Pnnkbqah386.3cm/sE/A Ratio0.9 MV A [id number] Pulmonary Valve PV Peak Gglchxat497.3cm/s Tricuspid Valve RAP [id number] Pulmonary Vein S1 Ccaxwqxn00.8cm/sD2 Ejrxnewd33.0cm/s PVa [id number] LEFT VENTRICLE The left ventricle is normal size. There is mild concentric left ventricular hypertrophy. The left ve ntricular systolic function is normal and the ejection fraction is within normal range. The Ejection Fraction is 60-65%. There is normal LV segmental wall motion. Transmitral Doppler flow pattern is Gra de I-abnormal relaxation pattern. There is no ventricular septal defect visualized. RIGHT VENTRICLE The right ventricle is normal size. The right ventricular systolic function is normal. ATRIA The left atrium size is normal. The right atrium size is normal. The interatrial septum is intact wit h no evidence for an atrial septal defect or patent foramen ovale as noted on 2-D or Doppler imaging. AORTIC VALVE The aortic valve is normal in structure and function. Doppler and Color Flow revealed no significant aortic regurgitation. There is no significant aortic valvular stenosis. MITRAL VALVE The mitral valve is normal in structure and function. There is no evidence of mitral valve prolapse. There is no mitral valve stenosis. Doppler and Color-flow revealed trace mitral regurgitation. TRICUSPID VALVE The tricuspid valve is normal in structure and function. Doppler and Color Flow revealed no tricuspid valve regurgitation noted. Unable to assess PA pressure. There is no tricuspid valve stenosis. PULMONIC VALVE The pulmonary valve is normal in structure and function. Doppler and Color Flow revealed no pulmonic valvular regurgitation. There is no pulmonic valvular stenosis. GREAT VESSELS The aortic root is normal in size. The ascending aorta is normal in size. The IVC is normal in size a nd collapses >50% with inspiration. PERICARDIAL EFFUSION There is no pleural effusion. There is no evidence of significant pericardial effusion. Critical Notification Critical Value: No <Conclusion> The left ventricular systolic function is normal and the ejection fraction is within normal range. Th e Ejection Fraction is 60-65%. There is normal LV segmental wall motion. Signed by : Aden Brown, Electronically Approved : 12/06/2019 11:25:51
--- NOTE | 2019-12-06 13:46 | PDOC2 ---
GI CONSULT Reason For Consult: h/o GI bleed will need anticoagulation PO SMA bypass HPI: HPI: 69 y/o female who has seen Dr. Jean in the past, seen earlier today w/ Dr. aTbor. 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 Vascular following w/ tentative plans for open SMA bypass on 12/13/19. H/o GERD controlled w/ PPI QD. No dysphagia, n/v, diarrhea, constipation, hematochezia, or melena. EGD on 01/25/19: gastritis. Colonoscopy 02/28/19: ascending colon sessile polyp extending over entire fold (tubular adenoma), sigmoid diverticulosis, internal hemorrhoids. S/p lap right colectomy on 03/28/19 - path c/w sessile tubulovillous adenoma, no high grade dysplasia or malignancy, lymph nodes neg for tumor. No GB, liver, pancreas, or PUD history. PMH: PMH: HTN, HLD, PVD, DM, GERD, TVA, diverticulosis, hemorrhoids, hypothyroidism, depression, OA, gout, seizure (related to HTN) SMA stent, LIH repair, LE stents, 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, bilateral knee replacements, cataract removal, right colon resection FH: Family History: No pertinent hx Social History: Smoke: <1 pack per day ALCOHOL: none Drugs: None ROS: GEN: Denies fevers, chills, sweats HEENT: Denies blurred vision, sore throat CV: Denies chest pain RESP: Denies shortness of air, cough GI: Per HPI : Denies hematuria, dysuria ENDO: +weight loss NEURO: Denies confusion, dizziness MSK: Denies weakness, joint pain/swelling SKIN: Denies jaundice, pruritus Vitals: Vitals: Vital Signs Date Time Temp Pulse Resp B/P (MAP) Pulse Ox O2 Delivery O2 Flow Rate FiO2 12/06/19 11:25 97.9 87 18 131/78 (95) 95 Room Air 97.9 Labs: Labs: Laboratory Tests Test 12/06/19 04:55 12/06/19 05:12 12/06/19 07:36 12/06/19 11:19 Urine Collection Type Void Urine Color Sia Urine Clarity Clear Urine pH 5.5 Urine Specific [place] 1.025 Urine Protein 30 mg/dL (NEG-TRACE) Urine Glucose (UA) Negative mg/dL (NEG) Urine Ketones (Stick) Negative mg/dL (NEG) Urine Blood Negative (NEG) Urine Nitrite Negative (NEG) Urine Bilirubin Small (NEG) Urine Urobilinogen Dipstick 1.0 mg/dL (0.2 mg/dL) Urine Leukocyte Esterase Small (NEG) Urine RBC 3-5 /HPF (0-2) Urine WBC 11-20 /HPF (0-4) Urine Squamous Epithelial Cells Mod /LPF Urine Bacteria Moderate /HPF (0-FEW) Urine Cellular Casts Occ /HPF Urine Hyaline Casts Moderate /HPF Urine Mucus Mod /LPF White Blood Count 12.9 x10^3/uL (4.0-11.0) Red Blood Count 4.53 x10^6/uL (3.50-5.40) Hemoglobin 10.5 g/dL (12.0-15.5) Hematocrit 34.2 % (36.0-47.0) Mean Corpuscular Volume 76 fL (79-100) Mean Corpuscular Hemoglobin 23 pg (25-35) Mean Corpuscular Hemoglobin Concent 31 g/dL (31-37) Red Cell Distribution Width 20.6 % (11.5-14.5) Platelet Count 383 x10^3/uL (140-400) Neutrophils (%) (Auto) 65 % (31-73) Lymphocytes (%) (Auto) 23 % (24-48) Monocytes (%) (Auto) 10 % (0-9) Eosinophils (%) (Auto) 2 % (0-3) Basophils (%) (Auto) 1 % (0-3) Neutrophils # (Auto) 8.4 x10^3/uL (1.8-7.7) Lymphocytes # (Auto) 3.0 x10^3/uL (1.0-4.8) Monocytes # (Auto) 1.2 x10^3/uL (0.0-1.1) Eosinophils # (Auto) 0.2 x10^3/uL (0.0-0.7) Basophils # (Auto) 0.1 x10^3/uL (0.0-0.2) Platelet Estimate Adequate (ADEQUATE) Large Platelets Few Hypochromasia Slight Poikilocytosis Present Anisocytosis Mod Ovalocytes Occ Sodium Level 141 mmol/L (136-145) Potassium Level 3.7 mmol/L (3.5-5.1) Chloride Level 102 mmol/L (98-107) Carbon Dioxide Level 27 mmol/L (21-32) Anion Gap 12 (6-14) Blood Urea Nitrogen 26 mg/dL (7-20) Creatinine 0.7 mg/dL (0.6-1.0) Estimated GFR (Cockcroft-Gault) 83.0 BUN/Creatinine Ratio 37 (6-20) Glucose Level 125 mg/dL (70-99) Lactic Acid Level 1.3 mmol/L (0.4-2.0) Calcium Level 9.3 mg/dL (8.5-10.1) Total Bilirubin 0.3 mg/dL (0.2-1.0) Aspartate Amino Transf (AST/SGOT) 22 U/L (15-37) Alanine Aminotransferase (ALT/SGPT) 19 U/L (14-59) Alkaline Phosphatase 165 U/L (46-116) Total Protein 7.2 g/dL (6.4-8.2) Albumin 3.3 g/dL (3.4-5.0) Albumin/Globulin Ratio 0.8 (1.0-1.7) Lipase 95 U/L (73-393) Glucose (Fingerstick) 106 mg/dL (70-99) 110 mg/dL (70-99) Allergies: Coded Allergies: shrimp (Verified Allergy, Intermediate, Rash, 03/29/19) Medications: Current Medications Medications (Trade) Dose Ordered Sig/Kira Route PRN Reason Start Time Stop Time Status Last Admin Dose Admin Fentanyl Citrate (Fentanyl 2ml Vial) 50 mcg 1X ONCE IVP 12/06/19 05:15 12/06/19 05:16 DC 12/06/19 05:20 Ondansetron HCl (Zofran) 4 mg 1X ONCE IVP 12/06/19 05:15 12/06/19 05:16 DC 12/06/19 05:20 Sodium Chloride 1,000 ml @ 1,000 mls/hr 1X ONCE IV 12/06/19 05:15 12/06/19 06:14 DC 12/06/19 05:20 Morphine Sulfate (Morphine Sulfate) 2 mg PRN Q2HR PRN IV PAIN 12/06/19 05:45 12/07/19 05:44 12/06/19 08:59 Sodium Chloride 1,000 ml @ 75 mls/hr [id number] IV 12/06/19 05:45 12/07/19 05:44 12/06/19 08:40 Iohexol (Omnipaque 350 Mg/ml) 90 ml 1X ONCE IV 12/06/19 09:15 12/06/19 09:16 DC 12/06/19 10:20 Imaging: Imaging: LE US 12/06 IMPRESSION: Greater saphenous and lesser saphenous veins of both lower extremities are patent. Vein map was performed bilaterally. Carotid Doppler 12/06 Impression: Mild plaque formation is seen within the carotid bifurcations bilaterally which is less than 50 percent. 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 The inferior mesenteric artery remains patent. Echocardiogram 12/06 <Conclusion> The left ventricular systolic function is normal and the ejection fraction is within normal range. The Ejection Fraction is 60-65%. There is normal LV segmental wall motion. 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 Recent scopes as above. Okay for OAC per GI. ELDA HUTTON Dec 06, 2019 13:46
[2019-12-06 15:01] VITALS: BP 137/56
[2019-12-06 19:00] VITALS: BP 124/53
--- NOTE | 2019-12-06 21:55 | HP ---
ADMIT DATE: 12/06/2019 CHIEF COMPLAINT AND HISTORY OF PRESENT ILLNESS: This 69-year-old white female is well known to me from followup in the office. The patient has a history of mesenteric ischemia with prior stenting of her SMA. Recent imaging has showed occlusion of the outlets. Interventional Radiology feeling Vascular Surgery would be necessary for remitting of the situation, as she had significant celiac disease, at least in addition. She has had ongoing abdominal pain with eating, has had significant weight loss as the pain is severe, predominantly on the left side with any sort of eating, whatsoever. She has been waiting for an appointment to see Vascular Surgery later this month. The pain has gotten to the point where she was unable to take anymore, came to the Emergency Room where she was admitted for the same. The patient does have a history of GI bleeding with EGD and colonoscopy, is being essentially unrewarding. However, she just finished a small bowel capsule with GI showing ulcerations and AVMs throughout the small bowel area. I suspect a lot of this is on the basis of ischemia, but we will defer to GI as far as that goes. PAST MEDICAL HISTORY: Remarkable for hyperlipidemia, diabetes, peripheral arterial disease with stenting, prior GI bleed, anemia due to the same, mesenteric stenting with ischemia. MEDICATIONS: Listed on the computer and have been addressed. ALLERGIES: INCLUDE SHRIMP. SOCIAL HISTORY: She is a smoker, nondrinker, does not use drugs. She is single. FAMILY HISTORY: Noncontributory. REVIEW OF SYSTEMS: Remarkable for that as mentioned above. PHYSICAL EXAMINATION: GENERAL: She is well-developed, well-nourished white female, in no acute distress at the time of my examination. Eating some jello. VITAL SIGNS: Stable. She is afebrile. HEAD, EYES, EARS, NOSE AND THROAT: Unremarkable. NECK: Supple without bruit or thyromegaly. CHEST: Clear to auscultation and percussion. HEART: Regular rate and rhythm without S3, S4 or murmur. ABDOMEN: Soft, nontender, without hepatosplenomegaly or masses. EXTREMITIES: Without cyanosis, clubbing, significant edema. NEUROLOGIC: She is intact. LABORATORY DATA: Initial workup shows a white count of 12,900, hemoglobin of 10.5 with decreased red blood cell indices and elevated RDW. Platelet count of 383,000. Chemistry reveals a BUN of 26, creatinine of 0.7, glucose 125. Lactic acid 1.3, alkaline phosphatase of 165. Urinalysis shows 11-20 white blood cells and small leukocyte esterase. Imaging done on the day of this dictation showed greater saphenous and lesser saphenous veins of both lower extremities patent. Vein mapping was performed bilaterally. Carotid Doppler showed no significant disease with less than 50% bilaterally. 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 Inferior mesenteric artery remained patent. IMPRESSION: 1. Abdominal pain, weight loss, secondary to mesenteric ischemia as discussed above. 2. Iron-deficiency anemia, likely related to the ischemia in addition. 3. Diabetes with good control. 4. History of peripheral arterial disease with stenting. PLAN: The patient has been admitted. Vascular Surgery, GI and Cardiology have been consulted. The patient will need surgery during the stay. The patient will be monitored, managed and treated appropriately. ANBAEL MARTÍNEZ MD DR: IZA/heriberto JOB#: [id number] / [id number]
[2019-12-06] MEDS: ATORVASTATIN CALCIUM 10 MG TABLET. PO SCH (22:06)
[2019-12-06 23:00] VITALS: BP 109/41
[2019-12-07 03:00] VITALS: BP 156/60
[2019-12-07] MEDS: PANTOPRAZOLE 40 MG TABLET.DR. PO SCH (06:23)
[2019-12-07 07:00] VITALS: BP 137/57
--- NOTE | 2019-12-07 07:47 | PDOC ---
Provider Note Provider Note AF VSS awake and alert abdomen soft, nondistended, nontender tolerating clear liquids A/P chronic mesenteric ischemia secondary to occluded SMA stent and severe celiac artery occlusion symptomatic with weight loss and abdominal pain. No signs of bowel ischemia. - she will need a supraceliac aortic to SMA and possible celiac bypass - cardiology evaluating - recommend stress testing or cath with this high risk operation - carotid duplex shows mild disease YANG MENDEZ MD Dec 07, 2019 07:47
[2019-12-07] MEDS: ALLOPURINOL 300 MG TABLET. PO SCH (08:32)
[2019-12-07] MEDS: PIOGLITAZONE 15 MG TABLET. PO SCH (08:32)
[2019-12-07] MEDS: DULoxetine HCL 30 MG CAPSULE.DR PO SCH (08:34)
[2019-12-07] MEDS ORDERED: NON FORMULARY ITEM (Pantoprazole Sodium (Protonix) 40 MG) PO SCH (09:00)
[2019-12-07 11:00] VITALS: BP 142/52
--- NOTE | 2019-12-07 13:41 | PDOC ---
Subjective: Subjective: Doing okay, will have stress stress prior to discharge. Intolerant to PO iron. Objective: Vital Signs: Vital Signs Date Time Temp Pulse Resp B/P (MAP) Pulse Ox O2 Delivery O2 Flow Rate FiO2 12/07/19 11:00 98.4 77 18 142/52 (82) 91 Room Air 98.4 Labs: Laboratory Tests Test 12/06/19 16:29 12/06/19 20:23 12/07/19 08:03 12/07/19 11:07 Glucose (Fingerstick) 90 mg/dL 108 mg/dL 81 mg/dL 87 mg/dL PE: GEN: NAD LUNGS: CTAB HEART: RRR ABD: NABS, S/ND/NT NEURO/PSYCH: A & O 3 A/P: Mesenteric ischemia ELIDA - recent EGD and colonoscopy -- Continue PPI, consider iron infusions. Hemodynamically unstable?: No Is patient in severe pain?: No Is NPO status required?: No ELDA HUTTON Dec 07, 2019 13:41
[2019-12-07 15:00] VITALS: BP 132/60
--- NOTE | 2019-12-07 16:29 | PDOC ---
JUANA JETT TOOL DESIGN DRAFTSPERSON 12/07/19 1629: CARDIO Progress Notes Date and Time Date of Service 12/07/2019 Time of Evaluation 1230 Subjective Subjective: No Chest Pain, No shortness of breath, No Palpitations Vitals Vitals Vital Signs Date Time Temp Pulse Resp B/P (MAP) Pulse Ox O2 Delivery O2 Flow Rate FiO2 12/07/19 15:00 98.5 84 18 132/60 (84) 95 Room Air 98.5 Weight Weight [ ] Input and Output Intake and Output Intake and Output 12/07/19 07:00 Intake Total 2835 ml Output Total 4 ml Balance 2831 ml Intake Oral 1660 ml IV Total 1175 ml Output Urine Total 4 ml Laboratory Labs Laboratory Tests Test 12/06/19 16:29 12/06/19 20:23 12/07/19 08:03 12/07/19 11:07 Glucose (Fingerstick) 90 mg/dL (70-99) 108 mg/dL (70-99) 81 mg/dL (70-99) 87 mg/dL (70-99) Physical Exam HEENT: Neck Supple W Full Motion Chest: Symmetric LUNGS: Clear to Auscultation Heart: other (no tele) Extremities: No Edema, No Calf Tenderness Neurology: alert, oriented, follow commands Assessment Assessment 1. Abd pain with occluded stent to SMA: needing bypass 2. Preop cardiac eval: EF revealed normal EF and WM 3. Shrimp allergy 4. DM2: per PCP 5. HLP 6. Hx of LE PAD with stents: no claudications, wounds 7. Hx of PUD/GI bleed 8. COPD with tobaccoism Recommendations Cardiac risk index revealed.moderate risk for perioperative CV events.EKG with possible past inferior MO. Discussed with vascular surgery and given her signif icant risk factors with high risk vascular surgery will proceed with MPI to rule out any underlying occult issues. Will proceed tomorrow. Continue statin. Antiplatelet to resume post op per vascular Will establish cardiology care as an outpt smoking cessation IGNACIO ROUSSEAU MD 12/07/192044: CARDIO Progress Notes Assessment Assessment Patient seen and examined. Agree with FIRER [employer]IVE's assessment and plan. 2D echo showed normal LVF without WMA Agree with MPI to rule out ischemia secondary to high risk nature of impending surgery JUANA JETT [employer] DESIGN DRAFTSPERSON Dec 07, 2019 16:29 IGNACIO ROUSSEAU MD Dec 07, 2019 20:45
[2019-12-07 19:00] VITALS: BP 137/48
--- NOTE | 2019-12-07 20:23 | PDOC ---
GENERAL General: vss and afebrile. awake and alert. taking clear liquids. chest clear, heart reg ular, abdomen benign. sugars good. for MPI tomorrow in preparation for surgery. otherwise same. VITAL SIGNS/I&O Vital Signs/I&O: Vital Signs Date Time Temp Pulse Resp B/P (MAP) Pulse Ox O2 Delivery O2 Flow Rate FiO2 12/07/19 19:00 98.1 85 16 137/48 (77) 96 Room Air 98.1 I & O 12/06/19 12/06/19 12/07/19 14:59 22:59 06:59 Intake Total 900 ml 1760 ml 175 ml Output Total 2 ml 2 ml Balance 900 ml 1758 ml 173 ml ALLERGIES Allergies: Allergies Coded Allergies Type Severity Reaction Last Updated Verified shrimp Allergy Intermediate Rash 03/29/19 Yes MEDS Medications: Current Medications Medications (Trade) Dose Ordered Sig/Kira Route PRN Reason Start Time Stop Time Status Last Admin Dose Admin Pantoprazole Sodium (Protonix) 40 mg DAILYAC PO 12/07/19 07:30 12/07/19 06:23 Allopurinol (Zyloprim) 300 mg DAILY PO 12/07/19 09:00 12/07/19 08:32 Duloxetine HCl (Cymbalta) 60 mg DAILY PO 12/07/19 09:00 12/07/19 08:34 Pioglitazone HCl (Actos) 30 mg DAILY PO 12/07/19 09:00 12/07/19 08:32 Atorvastatin Calcium (Lipitor) 5 mg QHS PO 12/06/19 22:00 12/06/19 22:06 LAB Lab: Laboratory Tests Test 12/06/19 20:23 12/07/19 08:03 12/07/19 11:07 12/07/19 16:56 Glucose (Fingerstick) 108 mg/dL (70-99) H 81 mg/dL (70-99) 87 mg/dL (70-99) 78 mg/dL (70-99) Nutrition Consultation Dietary Evaluation: Recommendations by RD: Dietary education by RD, PPN/TPN Comments: REC advance to ADA, Cardiac diet per pmhx when able Pt may need nutrition support s/p surgery [facility] 12/13. Expected Outcomes/Goals: to meet >75% est nutr needs Interpretation of weight loss: >10% in 6 months Malnutrition Findings: Food and Nutrition Intake (Sev: <50% est energy req 5days Weight Status: Appropriate Hemodynamically unstable?: No Is patient in severe pain?: No Is NPO status required?: No ANABEL MARTÍNEZ MD Dec 07, 2019 20:23
[2019-12-07] MEDS: ATORVASTATIN CALCIUM 10 MG TABLET. PO SCH (21:10)
[2019-12-07 23:00] VITALS: BP 142/61
[2019-12-08 03:00] VITALS: BP 144/65
[2019-12-08 07:30] VITALS: BP 115/57
[2019-12-08] MEDS: PANTOPRAZOLE 40 MG TABLET.DR. PO SCH (07:30)
[2019-12-08] MEDS: PIOGLITAZONE 15 MG TABLET. PO SCH (07:32)
[2019-12-08] MEDS: DULoxetine HCL 30 MG CAPSULE.DR PO SCH (07:33)
[2019-12-08] MEDS: ALLOPURINOL 300 MG TABLET. PO SCH (07:33)
--- NOTE | 2019-12-08 08:11 | NUR ---
SW following. Discussed with RN, pt is from home. Stress test today, if no interventional procedure needed after, pt will discharge home with self care. SW will continue to follow.
--- NOTE | 2019-12-08 08:12 | PDOC ---
GENERAL General: vss and afebrile. awake and alert. for MPI this am. dicussed with nursing. if M PI allows home later today with return for surgery on 12/13. exam stable and sugars good. VITAL SIGNS/I&O Vital Signs/I&O: Vital Signs Date Time Temp Pulse Resp B/P (MAP) Pulse Ox O2 Delivery O2 Flow Rate FiO2 12/08/19 07:30 97.9 71 16 115/57 (76) 95 Room Air 97.9 I & O 12/07/19 12/07/19 12/08/19 15:00 23:00 07:00 Intake Total 500 ml 180 ml 120 ml Balance 500 ml 180 ml 120 ml ALLERGIES Allergies: Allergies Coded Allergies Type Severity Reaction Last Updated Verified shrimp Allergy Intermediate Rash 03/29/19 Yes MEDS Medications: Current Medications Medications (Trade) Dose Ordered Sig/Kira Route PRN Reason Start Time Stop Time Status Last Admin Dose Admin Allopurinol (Zyloprim) 300 mg DAILY PO 12/07/19 09:00 12/07/19 08:32 Duloxetine HCl (Cymbalta) 60 mg DAILY PO 12/07/19 09:00 12/07/19 08:34 Pioglitazone HCl (Actos) 30 mg DAILY PO 12/07/19 09:00 12/07/19 08:32 LAB Lab: Laboratory Tests Test 12/07/19 11:07 12/07/19 16:56 12/07/19 20:50 12/08/19 07:53 Glucose (Fingerstick) 87 mg/dL (70-99) 78 mg/dL (70-99) 95 mg/dL (70-99) 93 mg/dL (70-99) Nutrition Consultation Dietary Evaluation: Recommendations by RD: Dietary education by RD, PPN/TPN Comments: REC advance to ADA, Cardiac diet per pmhx when able Pt may need nutrition support s/p surgery [facility] 12/13. Expected Outcomes/Goals: to meet >75% est nutr needs Interpretation of weight loss: >10% in 6 months Malnutrition Findings: Food and Nutrition Intake (Sev: <50% est energy req 5days Weight Status: Appropriate Hemodynamically unstable?: No Is patient in severe pain?: No Is NPO status required?: No ANABEL MARTÍNEZ MD Dec 08, 2019 08:12
[2019-12-08] MEDS ORDERED: REGADENOSON 0.4 MG/5 ML DISP.SYRIN. IV ONE (08:15)
--- NOTE | 2019-12-08 10:04 | PDOC ---
Objective: Objective: D/w nurse - plans to DC after stress test. Vital Signs: Vital Signs Date Time Temp Pulse Resp B/P (MAP) Pulse Ox O2 Delivery O2 Flow Rate FiO2 12/08/19 07:30 97.9 71 16 115/57 (76) 95 Room Air 97.9 Labs: Laboratory Tests Test 12/07/19 11:07 12/07/19 16:56 12/07/19 20:50 12/08/19 07:53 Glucose (Fingerstick) 87 mg/dL 78 mg/dL 95 mg/dL 93 mg/dL URINE CULTURE RES 1 Preliminary Streptococcus species Imaging: MPI 12/08 pending PE: out of room A/P: Mesenteric ischemia - tentatively plans for surgery next week ELIDA - recent EGD and colonoscopy, on PPI, intolerant to PO iron UTI -- DC per primary. Hemodynamically unstable?: No Is patient in severe pain?: No Is NPO status required?: No ELDA HUTTON Dec 08, 2019 10:04
--- NOTE | 2019-12-08 10:05 | PDOC ---
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 No signs of bowel ischemia. - she will need a supraceliac aortic to SMA and possible celiac bypass, tentatively scheduled for 12/13/2019 - cardiology evaluating - recommend stress testing or cath with this high risk operation - carotid duplex shows mild disease - patient could potentially discharge and return on 12/13/2019 if cleared by cardiology, please notify our office if change in patient status TIANNA RAMIRES APRN Dec 08, 2019 10:05
[2019-12-08 11:05] VITALS: BP 116/50
--- NOTE | 2019-12-08 11:31 | RAD ---
MR#: [id number] Date of Study: 12/08/2019 Ordering Physician: JUANA JETT, Referring Physician: SHANNAN TORRES Tech: PAUL Crowe APPROVED REPORT Test Type: Pharmacological Stress Nurse/Tech: Ivet Torres RN Test Indications: Preop clearance Cardiac History: Diabetes,smoker,asthma,COPD Medications: See Electronic Medical Record Medical History: See Electronic Medical Record Resting ECG: SR with BBB Resting Heart Rate: 73 bpm Resting Blood Pressure: 145/70mmHg Pretest Chest Pain: No chest pain Nurse/Tech Notes S1,S2 and lungs diminished in the bases. Consent: The procedure was explained to the patient in lay terms. Informed consent was witnessed. Klever eout was entered into [employer]. History and Stress Test performed by PAUL Crowe Pharm. Details Pharmacologic stress testing was performed using 0.4mg per 5ml of regadenoson given intravenously ove r 7-10 seconds. Stress Symptoms No chest pain or symptoms. POST EXERCISE Reason for Termination: Infusion complete Target HR: No Max HR: 103 bpm 80% of Maximum Predicted HR: 128 bpm Max Blood Pressure: 147/72mmHg Blood Pressure response to exercise: Normal blood pressure response during stress. Heart Rate response to exercise: WNL Chest Pain: No. Arrhythmia: No. ST Change: No. INTERPRETATION Stress EKG Conclusion: No evidence of stress induced EKG changes. Imaging Protocol IMAGE PROTOCOL: Rest Tc-99m/stress Tc-99m 1 day Rest: Stress: Viability: Radiopharm.Tc99m [id number] Sestamibi [id number] 33mCi Duration 15min. 13min. Img Date 12/08/2019 12/08/2019 Inj-Img [id number]. 60min. Rest Admin Site:IV - Right HandAdministrator:PAUL Crowe Stress Admin Site: IV - Right HandAdministrator: TENISHA Ambrose, ARRT (R)(N) STRESS DATA End Diast. Vol.90.0mlLVEDV index BSA48.0ml End Syst. Vol.24.0mlLVESV index BSA13.0ml Myocardial Tqnd069.0gEject. Kawsjazc81.0% Stress Scores Regional WT1.00Summed WT12.00 Regional WM0.00Summed WM2.00 LV Perfusion There is a moderate sized basal to mid to distal inferior and basal to mid inferolateral probably fix ed defect with mild rose-infarct ischemia suggestive of prior infarct with small residual of rose-inf arct ischemia. Wall Motion Mild inferior wall hypokinesis. Normal ejection fraction at 70% LV Perf. Quant 17 Seg. SSS7.00 17 Seg. SRS3.00 17 Seg. SDS4.00 Stress Defect Extent (% LAD)0.00Rest Defect Extent (% LAD)0.00Rev. Defect Extent (% LAD)0.00 Stress Defect Extent (% LCX) 47.50Rest Defect Extent (% LCX)27.50Rev. Defect Extent (% LCX)38.80 Stress Defect Extent (% RCA)14.40Rest Defect Extent (% RCA)7.80Rev. Defect Extent (% RCA)7.80 Stress Defect Extent (% ALVARO)15.20Rest Defect Extent (% ALVARO)9.80Rev. Defect Extent (% ALVARO)10.90 Other Information Quality:Good Risk Assessment: Moderate Risk Conclusion 1. No evidence of stress induced EKG changes 2. Fixed inferior wall defect with mild rose-infarct ischemia suggestive of prior infarct. 3. Normal LV function with ejection fraction of 60-70% 4. Moderate risk study. Signed by : Aden Brown, Electronically Approved : 12/08/2019 11:31:05
[2019-12-08 15:05] VITALS: BP 92/47
--- NOTE | 2019-12-08 16:44 | NUR ---
Discharge Note: JAYRO YEH Discharge instructions and discharge home medications reviewed with Patient and a copy given. All questions have been answered and understanding verbalized. The following instructions and handouts were given: information about follow up appointments, medications, etc. Discontinued lines and drains: IV line in right hand removed, catheter tip intact. Patient discharged to home with self care with friend, wheelchair used for mobility to discharge vehicle.
== END 2019-12-08 16:45 | disposition home or self-care (01) | DRG 394 ==
LOC: ER 20:56 → 4 NORTH 12-06 05:20
PROVIDERS: ADMIT Family Medicine; ATTEND Family Medicine
DX: K55.069 Acute infarction of intestine, part and extent unspecified (principal); N39.0 Urinary tract infection, site not specified; K55.1 Chronic vascular disorders of intestine; D50.9 Iron deficiency anemia, unspecified; D36.9 Benign neoplasm, unspecified site; E11.51 Type 2 diabetes mellitus with diabetic peripheral angiopathy without gangrene; E78.00 Pure hypercholesterolemia, unspecified; E78.5 Hyperlipidemia, unspecified; F17.210 Nicotine dependence, cigarettes, uncomplicated; F32.9 Major depressive disorder, single episode, unspecified; G89.29 Other chronic pain; J44.9 Chronic obstructive pulmonary disease, unspecified; I10 Essential (primary) hypertension; K21.9 Gastro-esophageal reflux disease without esophagitis; K43.9 Ventral hernia without obstruction or gangrene; K57.30 Diverticulosis of large intestine without perforation or abscess without bleeding; M10.9 Gout, unspecified; Z82.49 Family history of ischemic heart disease and other diseases of the circulatory system; Z82.5 Family history of asthma and other chronic lower respiratory diseases; Z83.3 Family history of diabetes mellitus; Z87.11 Personal history of peptic ulcer disease; Z95.820 Peripheral vascular angioplasty status with implants and grafts; Z96.653 Presence of artificial knee joint, bilateral
CPT/HCPCS: 36415; 74174; 78452; 80053; 81001; 82962; 83540; 83550; 83605; 83690; 85025; 87086; 87186; 93005; 93017; 93306; 93880; 93970; 96361; 96374; 96375; 99285; A9500; J2270; J2405; J2785; J3010; J7030; Q9967; G0378

== ENCOUNTER 2020-05-29 09:09 | Inpatient (IN) | payer MEDICARE, MEDICAID ==
[2020-05-29] VITALS (9 sets, daily range): BP systolic 86–134; BP diastolic 34–72
[~2020-05-29] VITALS: Ht 172.7 cm; Wt 83.4 kg
[~2020-05-29 09:09] MED LIST changes: +ASPI325T11 PO; +POTA-163 PO
--- NOTE | 2020-05-29 09:49 | HP ---
ADMIT DATE: 05/29/2020 CHIEF COMPLAINT AND HISTORY OF PRESENT ILLNESS: This 69-year-old white female is well known to me from followup in the office. The patient has been having cough and shortness of breath for over the last 2 weeks. She is extremely short of breath with doing anything. In the office, her O2 sat ____ her vitals dropped into low 80s. She was good at rest in the upper 90s. She has been on Levaquin and prednisone without any improvement ____ at this point in time for presumed exacerbation of COPD. She does have a history of recurrent anemia and this has to be on the list in addition. PAST MEDICAL HISTORY: Well documented on old charts does include hyperlipidemia, diabetes, peripheral arterial disease, mesenteric ischemia with surgery, prior GI bleeding. MEDICATIONS: Brought with the patient, listed on the computer and have been addressed. ALLERGIES: She has no listed drug allergies. SOCIAL HISTORY: She is a daily smoker. Does not abuse alcohol or drugs. She is single. FAMILY HISTORY: Noncontributory. REVIEW OF SYSTEMS: As mentioned above. PHYSICAL EXAMINATION: GENERAL: Well-developed, well-nourished white female who appears ill. VITAL SIGNS: Remarkable for blood pressure of 99/48, otherwise unremarkable. She is afebrile. HEAD, EYES, EARS, NOSE, AND THROAT: Unremarkable. NECK: Supple without thyromegaly. CHEST: Reveals decreased breath sounds diffusely, but clear. HEART: Regular rate and rhythm without S3, S4 murmur. ABDOMEN: Soft and nontender without hepatosplenomegaly or masses. EXTREMITIES: Without cyanosis, clubbing, or edema. NEUROLOGIC: She is intact. IMPRESSION: 1. Shortness of breath with exertional hypoxia, likely exacerbation of chronic obstructive pulmonary disease. 2. Other problems as listed above. PLAN: The patient will be admitted. Pulmonary will be consulted. Chest x-ray and labs will be checked and the patient will be monitored, managed, and treated appropriately. ANABEL MARTÍNEZ MD DR: IZA/heriberto JOB#: [id number] / [id number]
[2020-05-29] MEDS ORDERED: cefTRIAXone IV Push 1 GM VIAL. IVP SCH (10:00)
[2020-05-29] MEDS ORDERED: methylPREDNISolone SOD SUCC PF 125 MG/2 ML VIAL. IV ONE (10:00)
[2020-05-29] MEDS ORDERED: IV 1/2 NORMAL SALINE 1,000 ML IV SCH (10:00)
[2020-05-29] MEDS ORDERED: AZITHROMYCIN 500 MG in IV NORMAL SALINE 250ML 250 ML IV SCH (10:30)
[2020-05-29 10:38] LABS: BASO # 0.1 x10^3/uL (0.0-0.2); BASO % 1 % (0-3); EOS # 0.1 x10^3/uL (0.0-0.7); EOS % 1 % (0-3); LYMPH # 4.2 x10^3/uL (1.0-4.8); LYMPH % 31 % (24-48); MEAN CORPUSCULAR HEMOGLOBIN 18 pg (25-35); MEAN CORPUSCULAR HGB CONC 28 g/dL (31-37); MEAN CORPUSCULAR VOLUME 64 fL (79-100); MONO # 0.9 x10^3/uL (0.0-1.1); MONO % 6 % (0-9); NEUT # 8.2 x10^3/uL (1.8-7.7); NEUT % 61 % (31-73); PLATELET COUNT 557 x10^3/uL (140-400); RED BLOOD COUNT 2.54 x10^6/uL (3.50-5.40); RED CELL DISTRIBUTION WIDTH 19.8 % (11.5-14.5); WHITE BLOOD COUNT 13.5 x10^3/uL (4.0-11.0)
--- NOTE | 2020-05-29 10:41 | RAD ---
Portable chest radiograph compared to similar exam dated for March 13, 2020 for shortness of breath and COPD. FINDINGS: There is diffuse pulmonary edema. Small right pleural effusion. Cardiomegaly. Dense opacity in the right lung base not present in November may represent atelectasis or infiltrate, and less likely rapidly growing lung mass. Follow-up to resolution is recommended. Smaller opacity in left lung base is likely atelectasis or pneumonia. IMPRESSION: 1. Congestive heart failure with diffuse pulmonary edema and a small right pleural effusion. 2. Nodular opacity in the right lung base which likely is atelectasis or pneumonic infiltrate but could conceivably represent a lung parenchymal nodule or mass as well. Follow-up to resolution is recommended. Electronically signed by: Thaddeus Holm MD (05/29/2020 10:38 AM) [id number]
[2020-05-29 10:49] LABS: HEMATOCRIT 16.1 % (36.0-47.0); HEMOGLOBIN 4.6 g/dL (12.0-15.5)
[2020-05-29 10:51] LABS: ALBUMIN 2.9 g/dL (3.4-5.0); CALCIUM 7.7 mg/dL (8.5-10.1); POTASSIUM 3.6 mmol/L (3.5-5.1); TOTAL BILIRUBIN 0.6 mg/dL (0.2-1.0); TOTAL PROTEIN 5.9 g/dL (6.4-8.2)
[2020-05-29] MEDS ORDERED: FUROSEMIDE 20 MG/2 ML VIAL. IVP ONE ×2 (11:30→12:30)
--- NOTE | 2020-05-29 11:39 | CONS ---
DATE OF CONSULTATION: 05/29/2020 PULMONARY CONSULTATION ATTENDING PHYSICIAN: Darío Joaquin MD REASON FOR CONSULTATION: Dyspnea, hypoxia. HISTORY OF PRESENT ILLNESS: The patient is a 69-year-old female who smoked for 55 years and still smoke a pack a day. She presented to the hospital with increasing shortness of breath for 2 weeks. She has a mild cough. She has some sinus drainage. No fever, no chills, no chest pains. The patient was noted to have her saturation in the 80s. As a result, she was hospitalized. Her chest x-ray was reviewed by me and is consistent with bilateral infiltrates, more suggesting CHF. Her previous echo had shown an EF of 60%. PAST MEDICAL HISTORY: Significant for suspected COPD, could be severe; history of hyperlipidemia; diabetes and peripheral arterial disease. She has a history of mesenteric ischemia and prior GI bleeding. PAST SURGICAL HISTORY: No recent surgeries. ALLERGIES: None. MEDICATIONS: Reviewed as listed in the MRAD. REVIEW OF SYSTEMS: Twelve-point system obtained. Pertinent positives discussed in my history of present illness, otherwise noncontributory. All systems that were negative were reviewed as well. SOCIAL HISTORY: Smoker for 55 years and still smokes cigarettes. PHYSICAL EXAMINATION: VITAL SIGNS: Reviewed. She is currently on 2 liters. HEENT: Sclerae nonicteric. NECK: Supple. LUNGS: With diminished breath sounds posteriorly and few crackles. CARDIOVASCULAR: With a regular rate. ABDOMEN: Soft. EXTREMITIES: With trace pitting edema. LABORATORY DATA: Reviewed. Hemoglobin is 4.6, platelets 557. BUN is 22 and a creatinine of 1.0. IMPRESSION: 1. Progressive dyspnea and acute hypoxic respiratory failure secondary to combination of severe anemia and likely anemic heart failure. 2. Abnormal chest x-ray suggestive of congestive heart failure. Clinically, less likely pneumonia. 3. 55 years of tobacco use, suspected underlying chronic obstructive pulmonary disease. RECOMMENDATIONS: 1. Discussed with the patient. At this time, we will continue with present oxygen 2 liters. 2. Packed RBC transfusion. 3. Workup of anemia per GI. 4. We will give low dose Lasix with transfusion. 5. Continue empiric antibiotics for now. 6. If chest x-ray does not improve, then we will do a noncontrast CT chest. 7. Steroid taper. 8. We will follow along with you. PANCHO RIVERA MD DR: Octavio JOB#: [id number] / [id number]
[2020-05-29 12:07] LABS: PLT ESTIMATE INCREASED (ADEQUATE)
[2020-05-29 12:08] LABS: ANISOCYTOSIS SLIGHT; HYPOCHROMIA PRESENT; MICROCYTOSIS MOD; POLYCHROMASIA PRESENT
[2020-05-29 12:09] LABS: POIKILOCYTOSIS SLIGHT
[2020-05-29 18:37] LABS: BILIRUBIN,URINE NEGATIVE (NEG); CLARITY,URINE CLEAR; NITRITE,URINE NEGATIVE (NEG); PH,URINE 5.5 (<5.0-8.0); PROTEIN,URINE NEGATIVE (NEG-TRACE); UROBILINOGEN,URINE 0.2 mg/dL (0.2 mg/dL)
[2020-05-29 18:41] LABS: COLOR,URINE STRAW; SQUAMOUS EPITHELIAL CELL,UR FEW /LPF
[2020-05-29 18:42] LABS: BACTERIA,URINE FEW /HPF (0-FEW); RBC,URINE 0 /HPF (0-2); WBC,URINE 0 /HPF (0-4)
[2020-05-29] MEDS: methylPREDNISolone SOD SUCC PF 40 MG/ML VIAL. IV SCH (21:45)
[2020-05-30 03:00] VITALS: BP 122/70
[2020-05-30] MEDS: methylPREDNISolone SOD SUCC PF 40 MG/ML VIAL. IV SCH ×3 (06:23→20:51)
[2020-05-30 07:00] VITALS: BP 129/73
[2020-05-30 08:04] LABS: ALBUMIN/GLOBULIN RATIO 0.9 (1.0-1.7); CREATININE 0.9 mg/dL (0.6-1.0); GFR 62.1; POTASSIUM 3.9 mmol/L (3.5-5.1); TOTAL BILIRUBIN 0.9 mg/dL (0.2-1.0); TOTAL PROTEIN 6.4 g/dL (6.4-8.2)
[2020-05-30 08:08] LABS: BASO # 0.1 x10^3/uL (0.0-0.2); BASO % 0 % (0-3); EOS % 0 % (0-3); HEMATOCRIT 23.9 % (36.0-47.0); HEMOGLOBIN 7.3 g/dL (12.0-15.5); LYMPH # 3.6 x10^3/uL (1.0-4.8); LYMPH % 26 % (24-48); MEAN CORPUSCULAR HEMOGLOBIN 21 pg (25-35); MEAN CORPUSCULAR HGB CONC 30 g/dL (31-37); MEAN CORPUSCULAR VOLUME 68 fL (79-100); MONO # 0.2 x10^3/uL (0.0-1.1); MONO % 2 % (0-9); NEUT # 9.6 x10^3/uL (1.8-7.7); NEUT % 72 % (31-73); PLATELET COUNT 505 x10^3/uL (140-400); RED BLOOD COUNT 3.51 x10^6/uL (3.50-5.40); WHITE BLOOD COUNT 13.5 x10^3/uL (4.0-11.0)
--- NOTE | 2020-05-30 08:14 | PDOC ---
DATE OF SERVICE: DATE: 05/30/20 TIME: 08:12 GENERAL General: vss and afebrile. awake and alert and eating breakfast. chest decreased breath sounds but clear, heart regular, abdomen benign. Hb 4.6 on admission with chf related to same. much better today with transfusion and diuresis. am Hb pending at this time. will ask for GI to eval again for cryptogenic GI bleeding. patient again denies any signs of GI blood loss prior to admission. VITAL SIGNS/I&O Vital Signs/I&O: Vital Signs Date Time Temp Pulse Resp B/P (MAP) Pulse Ox O2 Delivery O2 Flow Rate FiO2 05/30/20 07:00 97.8 95 16 129/73 (91) 90 Room Air 97.8 05/29/20 20:00 2.0 I & O 05/29/20 05/29/20 05/30/20 15:00 23:00 07:00 Intake Total 130 ml 30 ml Balance 130 ml 30 ml ALLERGIES Allergies: Allergies Coded Allergies Type Severity Reaction Last Updated Verified shrimp Allergy Intermediate Rash 12/12/19 Yes MEDS Medications: Current Medications Medications (Trade) Dose Ordered Sig/Kira Route PRN Reason Start Time Stop Time Status Last Admin Dose Admin Sodium Chloride 1,000 ml @ 75 mls/hr [id number] IV 05/29/20 10:00 05/29/20 12:31 DC 05/29/20 11:06 Ceftriaxone Sodium (Rocephin) 1 gm Q24H IVP 05/29/20 10:00 05/29/20 12:31 DC 05/29/20 11:05 Azithromycin 500 mg/Sodium Chloride 250 ml @ 250 mls/hr Q24H IV 05/29/20 10:30 05/29/20 12:31 DC 05/29/20 11:06 Methylprednisolone Sodium Succinate (SOLU-Medrol 125MG VIAL) 125 mg 1X ONCE IV 05/29/20 10:00 05/29/20 10:05 DC 05/29/20 11:05 Methylprednisolone Sodium Succinate (SOLU-Medrol 40MG VIAL) 80 mg Q8HRS IV 05/29/20 22:00 05/30/20 06:23 Furosemide (Lasix) 20 mg 1X ONCE IVP 05/29/20 11:30 05/29/20 11:31 DC 8/5/20 15:44 Furosemide (Lasix) 20 mg 1X ONCE IVP 05/29/20 12:30 05/29/20 12:31 DC 05/29/20 15:44 LAB Lab: Laboratory Tests Test 05/29/20 10:25 05/29/20 18:28 05/30/20 07:00 White Blood Count 13.5 x10^3/uL (4.0-11.0) H Red Blood Count 2.54 x10^6/uL (3.50-5.40) L Hemoglobin 4.6 g/dL (12.0-15.5) *L Hematocrit 16.1 % (36.0-47.0) *L Mean Corpuscular Volume 64 fL (79-100) L Mean Corpuscular Hemoglobin 18 pg (25-35) L Mean Corpuscular Hemoglobin Concent 28 g/dL (31-37) L Red Cell Distribution Width 19.8 % (11.5-14.5) H Platelet Count 557 x10^3/uL (140-400) H Neutrophils (%) (Auto) 61 % (31-73) Lymphocytes (%) (Auto) 31 % (24-48) Monocytes (%) (Auto) 6 % (0-9) Eosinophils (%) (Auto) 1 % (0-3) Basophils (%) (Auto) 1 % (0-3) Neutrophils # (Auto) 8.2 x10^3/uL (1.8-7.7) H Lymphocytes # (Auto) 4.2 x10^3/uL (1.0-4.8) Monocytes # (Auto) 0.9 x10^3/uL (0.0-1.1) Eosinophils # (Auto) 0.1 x10^3/uL (0.0-0.7) Basophils # (Auto) 0.1 x10^3/uL (0.0-0.2) Platelet Estimate Increased (ADEQUATE) Large Platelets Few Giant Platelets Few Polychromasia Present Hypochromasia Present Poikilocytosis Slight Anisocytosis Slight Microcytosis Mod Sodium Level 139 mmol/L (136-145) 139 mmol/L (136-145) Potassium Level 3.6 mmol/L (3.5-5.1) 3.9 mmol/L (3.5-5.1) Chloride Level 105 mmol/L (98-107) 103 mmol/L (98-107) Carbon Dioxide Level 25 mmol/L (21-32) 25 mmol/L (21-32) Anion Gap 9 (6-14) 11 (6-14) Blood Urea Nitrogen 22 mg/dL (7-20) H 30 mg/dL (7-20) H Creatinine 1.0 mg/dL (0.6-1.0) 0.9 mg/dL (0.6-1.0) Estimated GFR (Cockcroft-Gault) 55.0 62.1 BUN/Creatinine Ratio 22 (6-20) H 33 (6-20) H Glucose Level 105 mg/dL (70-99) H 155 mg/dL (70-99) H Calcium Level 7.7 mg/dL (8.5-10.1) L 8.0 mg/dL (8.5-10.1) L Total Bilirubin 0.6 mg/dL (0.2-1.0) 0.9 mg/dL (0.2-1.0) Aspartate Amino Transferase (AST) 20 U/L (15-37) 16 U/L (15-37) Alanine Aminotransferase (ALT) 27 U/L (14-59) 27 U/L (14-59) Alkaline Phosphatase 133 U/L (46-116) H 136 U/L (46-116) H Total Protein 5.9 g/dL (6.4-8.2) L 6.4 g/dL (6.4-8.2) Albumin 2.9 g/dL (3.4-5.0) L 3.0 g/dL (3.4-5.0) L Albumin/Globulin Ratio 1.0 (1.0-1.7) 0.9 (1.0-1.7) L Urine Collection Type Unknown Urine Color Straw Urine Clarity Clear Urine pH 5.5 (<5.0-8.0) Urine Specific [place] <=1.005 (1.000-1.030) Urine Protein Negative mg/dL (NEG-TRACE) Urine Glucose (UA) Negative mg/dL (NEG) Urine Ketones (Stick) Negative mg/dL (NEG) Urine Blood Negative (NEG) Urine Nitrite Negative (NEG) Urine Bilirubin Negative (NEG) Urine Urobilinogen Dipstick 0.2 mg/dL (0.2 mg/dL) Urine Leukocyte Esterase Negative (NEG) Urine RBC 0 /HPF (0-2) Urine WBC 0 /HPF (0-4) Urine Squamous Epithelial Cells Few /LPF Urine Bacteria Few /HPF (0-FEW) Laboratory Tests 05/29/20 10:25 Laboratory Tests 05/29/20 10:25 05/30/20 07:00 Justicifation of Admission Dx: Justifications for Admission: Justification of Admission Dx: Yes ANABEL MARTÍNEZ MD May 30, 2020 08:14
[2020-05-30 09:43] LABS: % BANDS 4 % (0-9); % BASOS 1 % (0-3); % LYMPHS 5 % (24-48); % SEGS 90 % (35-66); NUCLEATED RBC 1
[2020-05-30 09:44] LABS: ANISOCYTOSIS MOD; PLT ESTIMATE INCREASED (ADEQUATE)
--- NOTE | 2020-05-30 09:44 | NUR ---
SW following. Discussed with RN, pt from home, room air, ada diet. Consults pending. RN advised possible discharge today, No SW needs. SW will continue to follow.
[2020-05-30 09:45] LABS: HYPOCHROMIA MOD; MICROCYTOSIS MOD
[2020-05-30 11:00] VITALS: BP 130/74
--- NOTE | 2020-05-30 11:01 | PDOC ---
PULMONARY PROGRESS NOTES DATE: 05/30/20 TIME: 11:00 Subjective feels better s/p TX Vitals Vital Signs Date Time Temp Pulse Resp B/P (MAP) Pulse Ox O2 Delivery O2 Flow Rate FiO2 05/30/20 07:00 97.8 95 16 129/73 (91) 90 Room Air 97.8 05/29/20 20:00 2.0 General: Alert, No acute distress Lungs: Clear Cardiovascular: S1 Abdomen: Soft Neuro Exam: Alert Extremities: No Edema Skin: Warm Labs Laboratory Tests Test 05/29/20 10:25 05/29/20 18:28 05/30/20 07:00 White Blood Count 13.5 x10^3/uL (4.0-11.0) 13.5 x10^3/uL (4.0-11.0) Red Blood Count 2.54 x10^6/uL (3.50-5.40) 3.51 x10^6/uL (3.50-5.40) Hemoglobin 4.6 g/dL (12.0-15.5) 7.3 g/dL (12.0-15.5) Hematocrit 16.1 % (36.0-47.0) 23.9 % (36.0-47.0) Mean Corpuscular Volume 64 fL (79-100) 68 fL (79-100) Mean Corpuscular Hemoglobin 18 pg (25-35) 21 pg (25-35) Mean Corpuscular Hemoglobin Concent 28 g/dL (31-37) 30 g/dL (31-37) Red Cell Distribution Width 19.8 % (11.5-14.5) 25.0 % (11.5-14.5) Platelet Count 557 x10^3/uL (140-400) 505 x10^3/uL (140-400) Neutrophils (%) (Auto) 61 % (31-73) 72 % (31-73) Lymphocytes (%) (Auto) 31 % (24-48) 26 % (24-48) Monocytes (%) (Auto) 6 % (0-9) 2 % (0-9) Eosinophils (%) (Auto) 1 % (0-3) 0 % (0-3) Basophils (%) (Auto) 1 % (0-3) 0 % (0-3) Neutrophils # (Auto) 8.2 x10^3/uL (1.8-7.7) 9.6 x10^3/uL (1.8-7.7) Lymphocytes # (Auto) 4.2 x10^3/uL (1.0-4.8) 3.6 x10^3/uL (1.0-4.8) Monocytes # (Auto) 0.9 x10^3/uL (0.0-1.1) 0.2 x10^3/uL (0.0-1.1) Eosinophils # (Auto) 0.1 x10^3/uL (0.0-0.7) 0.0 x10^3/uL (0.0-0.7) Basophils # (Auto) 0.1 x10^3/uL (0.0-0.2) 0.1 x10^3/uL (0.0-0.2) Platelet Estimate Increased (ADEQUATE) Increased (ADEQUATE) Large Platelets Few Few Giant Platelets Few Polychromasia Present Hypochromasia Present Mod Poikilocytosis Slight Anisocytosis Slight Mod Microcytosis Mod Mod Sodium Level 139 mmol/L (136-145) 139 mmol/L (136-145) Potassium Level 3.6 mmol/L (3.5-5.1) 3.9 mmol/L (3.5-5.1) Chloride Level 105 mmol/L (98-107) 103 mmol/L (98-107) Carbon Dioxide Level 25 mmol/L (21-32) 25 mmol/L (21-32) Anion Gap 9 (6-14) 11 (6-14) Blood Urea Nitrogen 22 mg/dL (7-20) 30 mg/dL (7-20) Creatinine 1.0 mg/dL (0.6-1.0) 0.9 mg/dL (0.6-1.0) Estimated GFR (Cockcroft-Gault) 55.0 62.1 BUN/Creatinine Ratio 22 (6-20) 33 (6-20) Glucose Level 105 mg/dL (70-99) 155 mg/dL (70-99) Calcium Level 7.7 mg/dL (8.5-10.1) 8.0 mg/dL (8.5-10.1) Total Bilirubin 0.6 mg/dL (0.2-1.0) 0.9 mg/dL (0.2-1.0) Aspartate Amino Transf (AST/SGOT) 20 U/L (15-37) 16 U/L (15-37) Alanine Aminotransferase (ALT/SGPT) 27 U/L (14-59) 27 U/L (14-59) Alkaline Phosphatase 133 U/L (46-116) 136 U/L (46-116) Total Protein 5.9 g/dL (6.4-8.2) 6.4 g/dL (6.4-8.2) Albumin 2.9 g/dL (3.4-5.0) 3.0 g/dL (3.4-5.0) Albumin/Globulin Ratio 1.0 (1.0-1.7) 0.9 (1.0-1.7) Urine Collection Type Unknown Urine Color Straw Urine Clarity Clear Urine pH 5.5 (<5.0-8.0) Urine Specific [place] <=1.005 (1.000-1.030) Urine Protein Negative mg/dL (NEG-TRACE) Urine Glucose (UA) Negative mg/dL (NEG) Urine Ketones (Stick) Negative mg/dL (NEG) Urine Blood Negative (NEG) Urine Nitrite Negative (NEG) Urine Bilirubin Negative (NEG) Urine Urobilinogen Dipstick 0.2 mg/dL (0.2 mg/dL) Urine Leukocyte Esterase Negative (NEG) Urine RBC 0 /HPF (0-2) Urine WBC 0 /HPF (0-4) Urine Squamous Epithelial Cells Few /LPF Urine Bacteria Few /HPF (0-FEW) Segmented Neutrophils % 90 % (35-66) Band Neutrophils % 4 % (0-9) Lymphocytes % 5 % (24-48) Basophils % 1 % (0-3) Nucleated Red Blood Cells 1 Laboratory Tests Test 05/29/20 18:28 05/30/20 07:00 Urine Collection Type Unknown Urine Color Straw Urine Clarity Clear Urine pH 5.5 (<5.0-8.0) Urine Specific [place] <=1.005 (1.000-1.030) Urine Protein Negative mg/dL (NEG-TRACE) Urine Glucose (UA) Negative mg/dL (NEG) Urine Ketones (Stick) Negative mg/dL (NEG) Urine Blood Negative (NEG) Urine Nitrite Negative (NEG) Urine Bilirubin Negative (NEG) Urine Urobilinogen Dipstick 0.2 mg/dL (0.2 mg/dL) Urine Leukocyte Esterase Negative (NEG) Urine RBC 0 /HPF (0-2) Urine WBC 0 /HPF (0-4) Urine Squamous Epithelial Cells Few /LPF Urine Bacteria Few /HPF (0-FEW) White Blood Count 13.5 x10^3/uL (4.0-11.0) Red Blood Count 3.51 x10^6/uL (3.50-5.40) Hemoglobin 7.3 g/dL (12.0-15.5) Hematocrit 23.9 % (36.0-47.0) Mean Corpuscular Volume 68 fL (79-100) Mean Corpuscular Hemoglobin 21 pg (25-35) Mean Corpuscular Hemoglobin Concent 30 g/dL (31-37) Red Cell Distribution Width 25.0 % (11.5-14.5) Platelet Count 505 x10^3/uL (140-400) Neutrophils (%) (Auto) 72 % (31-73) Lymphocytes (%) (Auto) 26 % (24-48) Monocytes (%) (Auto) 2 % (0-9) Eosinophils (%) (Auto) 0 % (0-3) Basophils (%) (Auto) 0 % (0-3) Neutrophils # (Auto) 9.6 x10^3/uL (1.8-7.7) Lymphocytes # (Auto) 3.6 x10^3/uL (1.0-4.8) Monocytes # (Auto) 0.2 x10^3/uL (0.0-1.1) Eosinophils # (Auto) 0.0 x10^3/uL (0.0-0.7) Basophils # (Auto) 0.1 x10^3/uL (0.0-0.2) Segmented Neutrophils % 90 % (35-66) Band Neutrophils % 4 % (0-9) Lymphocytes % 5 % (24-48) Basophils % 1 % (0-3) Nucleated Red Blood Cells 1 Platelet Estimate Increased (ADEQUATE) Large Platelets Few Hypochromasia Mod Anisocytosis Mod Microcytosis Mod Sodium Level 139 mmol/L (136-145) Potassium Level 3.9 mmol/L (3.5-5.1) Chloride Level 103 mmol/L (98-107) Carbon Dioxide Level 25 mmol/L (21-32) Anion Gap 11 (6-14) Blood Urea Nitrogen 30 mg/dL (7-20) Creatinine 0.9 mg/dL (0.6-1.0) Estimated GFR (Cockcroft-Gault) 62.1 BUN/Creatinine Ratio 33 (6-20) Glucose Level 155 mg/dL (70-99) Calcium Level 8.0 mg/dL (8.5-10.1) Total Bilirubin 0.9 mg/dL (0.2-1.0) Aspartate Amino Transf (AST/SGOT) 16 U/L (15-37) Alanine Aminotransferase (ALT/SGPT) 27 U/L (14-59) Alkaline Phosphatase 136 U/L (46-116) Total Protein 6.4 g/dL (6.4-8.2) Albumin 3.0 g/dL (3.4-5.0) Albumin/Globulin Ratio 0.9 (1.0-1.7) Medications Active Scripts Medications Dose Route/Sig Max Daily Dose Days Date Category Potassium Chloride 20 Meq Tablet.er 20 Meq PO AFTRNOON 30 12/19/19 Rx Aspirin Ec (Aspirin) 325 Mg Tablet. 325 Mg PO [id number] 90 12/19/19 Rx Protonix (Pantoprazole Sodium) 20 Mg Tablet. 40 Mg PO DAILY 02/20/19 Reported Actos (Pioglitazone Hcl) 30 Mg Tablet 30 Mg PO DAILY 01/25/19 Reported Pravastatin Sodium 20 Mg Tablet 20 Mg PO QHS 07/02/16 Reported Allopurinol 100 Mg Tablet 300 Mg PO DAILY 11/20/15 Reported Cymbalta (Duloxetine Hcl) 60 Mg Capsule.dr 60 Mg PO DAILY 11/20/15 Reported Impression . 1. Progressive dyspnea and acute hypoxic respiratory failure secondary to combination of severe anemia and likely anemic heart failure. 2. Abnormal chest x-ray suggestive of congestive heart failure. Clinically, less likely pneumonia. 3. 55 years of tobacco use, suspected underlying chronic obstructive pulmonary disease. Plan . 1. Discussed with the patient. At this time, we will continue with present oxygen 2 liters. 2. s/p Packed RBC transfusion. Hb better 3. Workup of anemia per GI. 4. We will give low dose Lasix again today 5. Continue empiric antibiotics for now. 6. repeat cxr in am 7. Steroid taper. 8. We will follow along with you. PANCHO RIVERA MD May 30, 2020 11:01
[2020-05-30] MEDS ORDERED: FUROSEMIDE 20 MG/2 ML VIAL. IVP ONE (11:15)
--- NOTE | 2020-05-30 13:32 | PDOC2 ---
GI CONSULT Date of Service: DATE: 05/30/20 TIME: 13:17 Reason For Consult: cryptogenic GI bleeding? HPI: HPI: 69 y/o female w/ SOA on exertion. Admitted yesterday, noted w/ Hgb 4.6 w/ MCV 64, BUN 22, Cr 1. Hgb and breathing improved somewhat w/ transfusions. She denies GI bleeding including hematemesis, hematochezia, and melena. 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 Has not retried iron since then but is taking ASA 325 QD and eating well w/o abdominal pain. H/o GERD controlled w/ Protonix QD "when I remember." No dysphagia. No n/v, diarrhea, constipation, or weight loss. EGD in 01/2019: gastritis. Colonoscopy 02/2019: ascending colon sessile polyp extending over entire fold (TA), sigmoid diverticulosis, internal hemorrhoids. S/p lap right colectomy in 03/2019 - path c/s sessile TVA, no HGD or malignancy. No GB, liver, pancreas, or PUD history. PMH: PMH: HTN, HLD, PVD, DM, hypothyroidism, depression, OA, gout, seizure (related to HTN), UTI SMA stent and then bypass, LIH repair, LE stents, 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, bilateral knee replacements, cataract removal, right colon resection (for sessile tubulovillous adenoma) FH: Family History: No pertinent hx Social History: Smoke: <1 pack per day ALCOHOL: none Drugs: None ROS: GEN: Denies fevers, chills, sweats HEENT: Denies blurred vision, sore throat CV: Denies chest pain RESP: +SOA GI: Per HPI : Denies hematuria, dysuria ENDO: Denies weight changes NEURO: Denies confusion, dizziness MSK: Denies weakness, joint pain/swelling SKIN: Denies jaundice, pruritus Vitals: Vitals: Vital Signs Date Time Temp Pulse Resp B/P (MAP) Pulse Ox O2 Delivery O2 Flow Rate FiO2 05/30/20 11:00 98.2 90 18 130/74 (92) 91 Room Air 98.2 05/29/20 20:00 2.0 Labs: Labs: Laboratory Tests Test 05/29/20 18:28 05/30/20 07:00 Urine Collection Type Unknown Urine Color Straw Urine Clarity Clear Urine pH 5.5 (<5.0-8.0) Urine Specific [place] <=1.005 (1.000-1.030) Urine Protein Negative mg/dL (NEG-TRACE) Urine Glucose (UA) Negative mg/dL (NEG) Urine Ketones (Stick) Negative mg/dL (NEG) Urine Blood Negative (NEG) Urine Nitrite Negative (NEG) Urine Bilirubin Negative (NEG) Urine Urobilinogen Dipstick 0.2 mg/dL (0.2 mg/dL) Urine Leukocyte Esterase Negative (NEG) Urine RBC 0 /HPF (0-2) Urine WBC 0 /HPF (0-4) Urine Squamous Epithelial Cells Few /LPF Urine Bacteria Few /HPF (0-FEW) White Blood Count 13.5 x10^3/uL (4.0-11.0) Red Blood Count 3.51 x10^6/uL (3.50-5.40) Hemoglobin 7.3 g/dL (12.0-15.5) Hematocrit 23.9 % (36.0-47.0) Mean Corpuscular Volume 68 fL (79-100) Mean Corpuscular Hemoglobin 21 pg (25-35) Mean Corpuscular Hemoglobin Concent 30 g/dL (31-37) Red Cell Distribution Width 25.0 % (11.5-14.5) Platelet Count 505 x10^3/uL (140-400) Neutrophils (%) (Auto) 72 % (31-73) Lymphocytes (%) (Auto) 26 % (24-48) Monocytes (%) (Auto) 2 % (0-9) Eosinophils (%) (Auto) 0 % (0-3) Basophils (%) (Auto) 0 % (0-3) Neutrophils # (Auto) 9.6 x10^3/uL (1.8-7.7) Lymphocytes # (Auto) 3.6 x10^3/uL (1.0-4.8) Monocytes # (Auto) 0.2 x10^3/uL (0.0-1.1) Eosinophils # (Auto) 0.0 x10^3/uL (0.0-0.7) Basophils # (Auto) 0.1 x10^3/uL (0.0-0.2) Segmented Neutrophils % 90 % (35-66) Band Neutrophils % 4 % (0-9) Lymphocytes % 5 % (24-48) Basophils % 1 % (0-3) Nucleated Red Blood Cells 1 Platelet Estimate Increased (ADEQUATE) Large Platelets Few Hypochromasia Mod Anisocytosis Mod Microcytosis Mod Sodium Level 139 mmol/L (136-145) Potassium Level 3.9 mmol/L (3.5-5.1) Chloride Level 103 mmol/L (98-107) Carbon Dioxide Level 25 mmol/L (21-32) Anion Gap 11 (6-14) Blood Urea Nitrogen 30 mg/dL (7-20) Creatinine 0.9 mg/dL (0.6-1.0) Estimated GFR (Cockcroft-Gault) 62.1 BUN/Creatinine Ratio 33 (6-20) Glucose Level 155 mg/dL (70-99) Calcium Level 8.0 mg/dL (8.5-10.1) Total Bilirubin 0.9 mg/dL (0.2-1.0) Aspartate Amino Transf (AST/SGOT) 16 U/L (15-37) Alanine Aminotransferase (ALT/SGPT) 27 U/L (14-59) Alkaline Phosphatase 136 U/L (46-116) Total Protein 6.4 g/dL (6.4-8.2) Albumin 3.0 g/dL (3.4-5.0) Albumin/Globulin Ratio 0.9 (1.0-1.7) Allergies: Coded Allergies: shrimp (Verified Allergy, Intermediate, Rash, 12/12/19) Medications: Current Medications Medications (Trade) Dose Ordered Sig/Kira Route PRN Reason Start Time Stop Time Status Last Admin Dose Admin Methylprednisolone Sodium Succinate (SOLU-Medrol 40MG VIAL) 80 mg Q8HRS IV 05/29/20 22:00 05/30/20 11:02 DC 05/30/20 06:23 Imaging: Imaging: CXR 05/29 IMPRESSION: 1. Congestive heart failure with diffuse pulmonary edema and a small right pleural effusion. 2. Nodular opacity in the right lung base which likely is atelectasis or pneumonic infiltrate but could conceivably represent a lung parenchymal nodule or mass as well. Follow-up to resolution is recommended. PE: GEN: NAD HEENT: Atraumatic, PERRL LUNGS: diminished anteriorly HEART: RRR ABD: NABS, S/ND/NT EXTREMITY: No edema SKIN: No rashes, no jaundice NEURO/PSYCH: A & O 3 A/P: A/P: Shortness of breath - improved s/p transfusions, Lasix, and Solu-Medrol Profound anemia, h/o ELIDA GERD CRC screen (02/2019) Diverticulosis, hemorrhoids S/p lap right colectomy for TVA (03/2019) S/p SMA bypass on ASA -- Retry PO iron, would also resume PPI. Consider repeating EGD and colonoscopy - will review timing w/ Dr. Jean. BUN elevated - present on past labs. ELDA HUTTON May 30, 2020 13:32
[2020-05-30 15:00] VITALS: BP 122/68
[2020-05-30 19:00] VITALS: BP 144/52
[2020-05-30] MEDS: FERROUS SULFATE 325 MG TABLET. PO SCH (20:50)
[2020-05-30 23:00] VITALS: BP 128/62
[2020-05-31 03:00] VITALS: BP 131/71
[2020-05-31] MEDS: methylPREDNISolone SOD SUCC PF 40 MG/ML VIAL. IV SCH (06:46)
[2020-05-31 07:00] VITALS: BP 140/48
[2020-05-31] MEDS ORDERED: PANTOPRAZOLE 40 MG TABLET.DR. PO SCH (07:30)
[2020-05-31 08:23] LABS: BASO # 0.1 x10^3/uL (0.0-0.2); BASO % 0 % (0-3); EOS % 0 % (0-3); HEMATOCRIT 25.5 % (36.0-47.0); HEMOGLOBIN 7.6 g/dL (12.0-15.5); LYMPH # 3.2 x10^3/uL (1.0-4.8); LYMPH % 12 % (24-48); MEAN CORPUSCULAR HEMOGLOBIN 21 pg (25-35); MEAN CORPUSCULAR HGB CONC 30 g/dL (31-37); MEAN CORPUSCULAR VOLUME 69 fL (79-100); MONO # 0.7 x10^3/uL (0.0-1.1); MONO % 3 % (0-9); NEUT # 22.1 x10^3/uL (1.8-7.7); NEUT % 85 % (31-73); PLATELET COUNT 515 x10^3/uL (140-400); RED BLOOD COUNT 3.71 x10^6/uL (3.50-5.40); RED CELL DISTRIBUTION WIDTH 25.6 % (11.5-14.5)
--- NOTE | 2020-05-31 08:31 | RAD ---
PORTABLE CHEST 1V History: CHF Comparison: May 29, 2020 Findings: Single view of the chest is submitted. There is again small right pleural effusion. Pericardial cardiac silhouette is again enlarged. Perihilar opacity has somewhat increased. There is persistent right base airspace and interstitial opacity fairly similar. There is no pneumothorax. Impression: 1. Perihilar opacity is somewhat greater as can be seen with perihilar edema related to left ventricular failure. There is again small right pleural effusion. Persistent right base airspace opacity may be due to edema, infiltrate not excluded. Electronically signed by: Darío Dillon MD (05/31/2020 8:28 AM) [id number]
[2020-05-31 09:27] LABS: % BANDS 2 % (0-9); % LYMPHS 9 % (24-48); % MONOS 1 % (0-10); % SEGS 88 % (35-66); NUCLEATED RBC 1
[2020-05-31 09:28] LABS: ANISOCYTOSIS MARKED; HYPOCHROMIA MARKED; MICROCYTOSIS MARKED; PLT ESTIMATE INCREASED (ADEQUATE)
--- NOTE | 2020-05-31 10:08 | PDOC ---
Date of Service: DATE: 05/31/20 TIME: 10:06 Subjective: Subjective: Feels better. Tolerating PO iron. Wants to go home. Objective: Objective: Nurse says primary awaiting GI recs before DC. Vital Signs: Vital Signs Date Time Temp Pulse Resp B/P (MAP) Pulse Ox O2 Delivery O2 Flow Rate FiO2 05/31/20 07:00 98.3 99 16 140/48 (78) 92 Room Air 98.3 Labs: Laboratory Tests Test 05/31/20 07:55 White Blood Count 26.0 x10^3/uL Red Blood Count 3.71 x10^6/uL Hemoglobin 7.6 g/dL Hematocrit 25.5 % Mean Corpuscular Volume 69 fL Mean Corpuscular Hemoglobin 21 pg Mean Corpuscular Hemoglobin Concent 30 g/dL Red Cell Distribution Width 25.6 % Platelet Count 515 x10^3/uL Neutrophils (%) (Auto) 85 % Lymphocytes (%) (Auto) 12 % Monocytes (%) (Auto) 3 % Eosinophils (%) (Auto) 0 % Basophils (%) (Auto) 0 % Neutrophils # (Auto) 22.1 x10^3/uL Lymphocytes # (Auto) 3.2 x10^3/uL Monocytes # (Auto) 0.7 x10^3/uL Eosinophils # (Auto) 0.0 x10^3/uL Basophils # (Auto) 0.1 x10^3/uL Segmented Neutrophils % 88 % Band Neutrophils % 2 % Lymphocytes % 9 % Monocytes % 1 % Nucleated Red Blood Cells 1 Platelet Estimate Increased Large Platelets Present Hypochromasia Marked Anisocytosis Marked Microcytosis Marked Imaging: CXR 05/31 Impression: 1. Perihilar opacity is somewhat greater as can be seen with perihilar edema related to left ventricular failure. There is again small right pleural effusion. Persistent right base airspace opacity may be due to edema, infiltrate not excluded. PE: GEN: NAD LUNGS: diminished HEART: RRR ABD: NABS, S/ND/NT NEURO/PSYCH: A & O 3 A/P: Shortness of breath - interval CXR as above ELIDA - iron replacement restarted yesterday; 'scopes UTD S/p SMA bypass on ASA -- Dc per primary on PO iron and PPI. Follow-labs w/ PCP as outpt and follow-up w/ GI if unable to maintain blood counts despite iron. Justicifation of Admission Dx: Justifications for Admission: Justification of Admission Dx: Yes ELDA HUTTON May 31, 2020 10:08
[2020-05-31 11:00] VITALS: BP 138/80
[2020-05-31] MEDS: FERROUS SULFATE 325 MG TABLET. PO SCH (11:29)
--- NOTE | 2020-05-31 11:34 | PDOC ---
PULMONARY PROGRESS NOTES DATE: 05/31/20 TIME: 11:30 Subjective remains on room air HGB stable last two days no SOA, No CP, no cough wants to D/C today Vitals Vital Signs Date Time Temp Pulse Resp B/P (MAP) Pulse Ox O2 Delivery O2 Flow Rate FiO2 05/31/20 11:00 97.8 97 18 138/80 (99) 93 Room Air 97.8 ROS: No Nausea, No Chest Pain, No Abdominal Pain, No Increase Cough General: Alert, No acute distress Lungs: Clear Cardiovascular: S1 Abdomen: Soft Neuro Exam: Alert Extremities: No Edema Skin: Warm Labs Laboratory Tests Test 05/29/20 18:28 05/30/20 07:00 05/31/20 07:55 Urine Collection Type Unknown Urine Color Straw Urine Clarity Clear Urine pH 5.5 (<5.0-8.0) Urine Specific [place] <=1.005 (1.000-1.030) Urine Protein Negative mg/dL (NEG-TRACE) Urine Glucose (UA) Negative mg/dL (NEG) Urine Ketones (Stick) Negative mg/dL (NEG) Urine Blood Negative (NEG) Urine Nitrite Negative (NEG) Urine Bilirubin Negative (NEG) Urine Urobilinogen Dipstick 0.2 mg/dL (0.2 mg/dL) Urine Leukocyte Esterase Negative (NEG) Urine RBC 0 /HPF (0-2) Urine WBC 0 /HPF (0-4) Urine Squamous Epithelial Cells Few /LPF Urine Bacteria Few /HPF (0-FEW) White Blood Count 13.5 x10^3/uL (4.0-11.0) 26.0 x10^3/uL (4.0-11.0) Red Blood Count 3.51 x10^6/uL (3.50-5.40) 3.71 x10^6/uL (3.50-5.40) Hemoglobin 7.3 g/dL (12.0-15.5) 7.6 g/dL (12.0-15.5) Hematocrit 23.9 % (36.0-47.0) 25.5 % (36.0-47.0) Mean Corpuscular Volume 68 fL (79-100) 69 fL (79-100) Mean Corpuscular Hemoglobin 21 pg (25-35) 21 pg (25-35) Mean Corpuscular Hemoglobin Concent 30 g/dL (31-37) 30 g/dL (31-37) Red Cell Distribution Width 25.0 % (11.5-14.5) 25.6 % (11.5-14.5) Platelet Count 505 x10^3/uL (140-400) 515 x10^3/uL (140-400) Neutrophils (%) (Auto) 72 % (31-73) 85 % (31-73) Lymphocytes (%) (Auto) 26 % (24-48) 12 % (24-48) Monocytes (%) (Auto) 2 % (0-9) 3 % (0-9) Eosinophils (%) (Auto) 0 % (0-3) 0 % (0-3) Basophils (%) (Auto) 0 % (0-3) 0 % (0-3) Neutrophils # (Auto) 9.6 x10^3/uL (1.8-7.7) 22.1 x10^3/uL (1.8-7.7) Lymphocytes # (Auto) 3.6 x10^3/uL (1.0-4.8) 3.2 x10^3/uL (1.0-4.8) Monocytes # (Auto) 0.2 x10^3/uL (0.0-1.1) 0.7 x10^3/uL (0.0-1.1) Eosinophils # (Auto) 0.0 x10^3/uL (0.0-0.7) 0.0 x10^3/uL (0.0-0.7) Basophils # (Auto) 0.1 x10^3/uL (0.0-0.2) 0.1 x10^3/uL (0.0-0.2) Segmented Neutrophils % 90 % (35-66) 88 % (35-66) Band Neutrophils % 4 % (0-9) 2 % (0-9) Lymphocytes % 5 % (24-48) 9 % (24-48) Basophils % 1 % (0-3) Nucleated Red Blood Cells 1 1 Platelet Estimate Increased (ADEQUATE) Increased (ADEQUATE) Large Platelets Few Present Hypochromasia Mod Marked Anisocytosis Mod Marked Microcytosis Mod Marked Sodium Level 139 mmol/L (136-145) Potassium Level 3.9 mmol/L (3.5-5.1) Chloride Level 103 mmol/L (98-107) Carbon Dioxide Level 25 mmol/L (21-32) Anion Gap 11 (6-14) Blood Urea Nitrogen 30 mg/dL (7-20) Creatinine 0.9 mg/dL (0.6-1.0) Estimated GFR (Cockcroft-Gault) 62.1 BUN/Creatinine Ratio 33 (6-20) Glucose Level 155 mg/dL (70-99) Calcium Level 8.0 mg/dL (8.5-10.1) Total Bilirubin 0.9 mg/dL (0.2-1.0) Aspartate Amino Transf (AST/SGOT) 16 U/L (15-37) Alanine Aminotransferase (ALT/SGPT) 27 U/L (14-59) Alkaline Phosphatase 136 U/L (46-116) Total Protein 6.4 g/dL (6.4-8.2) Albumin 3.0 g/dL (3.4-5.0) Albumin/Globulin Ratio 0.9 (1.0-1.7) Vitamin B12 Level 331 pg/mL (247-911) Monocytes % 1 % (0-10) Laboratory Tests Test 05/31/20 07:55 White Blood Count 26.0 x10^3/uL (4.0-11.0) Red Blood Count 3.71 x10^6/uL (3.50-5.40) Hemoglobin 7.6 g/dL (12.0-15.5) Hematocrit 25.5 % (36.0-47.0) Mean Corpuscular Volume 69 fL (79-100) Mean Corpuscular Hemoglobin 21 pg (25-35) Mean Corpuscular Hemoglobin Concent 30 g/dL (31-37) Red Cell Distribution Width 25.6 % (11.5-14.5) Platelet Count 515 x10^3/uL (140-400) Neutrophils (%) (Auto) 85 % (31-73) Lymphocytes (%) (Auto) 12 % (24-48) Monocytes (%) (Auto) 3 % (0-9) Eosinophils (%) (Auto) 0 % (0-3) Basophils (%) (Auto) 0 % (0-3) Neutrophils # (Auto) 22.1 x10^3/uL (1.8-7.7) Lymphocytes # (Auto) 3.2 x10^3/uL (1.0-4.8) Monocytes # (Auto) 0.7 x10^3/uL (0.0-1.1) Eosinophils # (Auto) 0.0 x10^3/uL (0.0-0.7) Basophils # (Auto) 0.1 x10^3/uL (0.0-0.2) Segmented Neutrophils % 88 % (35-66) Band Neutrophils % 2 % (0-9) Lymphocytes % 9 % (24-48) Monocytes % 1 % (0-10) Nucleated Red Blood Cells 1 Platelet Estimate Increased (ADEQUATE) Large Platelets Present Hypochromasia Marked Anisocytosis Marked Microcytosis Marked Medications Active Scripts Medications Dose Route/Sig Max Daily Dose Days Date Category Potassium Chloride 20 Meq Tablet.er 20 Meq PO AFTRNOON 30 12/19/19 Rx Aspirin Ec (Aspirin) 325 Mg Tablet. 325 Mg PO DAILYWBKFT 90 12/19/19 Rx Protonix (Pantoprazole Sodium) 20 Mg Tablet.dr 40 Mg PO DAILY 02/20/19 Reported Actos (Pioglitazone Hcl) 30 Mg Tablet 30 Mg PO DAILY 01/25/19 Reported Pravastatin Sodium 20 Mg Tablet 20 Mg PO QHS 07/02/16 Reported Allopurinol 100 Mg Tablet 300 Mg PO DAILY 11/20/15 Reported Cymbalta (Duloxetine Hcl) 60 Mg Capsule.dr 60 Mg PO DAILY 11/20/15 Reported Comments CXR 05/31/2020 Impression: 1. Perihilar opacity is somewhat greater as can be seen with perihilar edema related to left ventricular failure. There is again small right pleural effusion. Persistent right base airspace opacity may be due to edema, infiltrate not excluded. Impression . 1. Progressive dyspnea and acute hypoxic respiratory failure secondary to combination of severe anemia and likely anemic heart failure--resolved 2. Abnormal chest x-ray suggestive of congestive heart failure. Clinically, less likely pneumonia. 3. 55 years of tobacco use, suspected underlying chronic obstructive pulmonary disease. Plan . On room air, stable from pulmonary standpoint s/p Packed RBC transfusion. Hb better Workup of anemia per GI, currently treating with iron supplementation CXR reviewed -- will give another dose of lasix today D/C Steroids ok to D/C from our standpoint PANCHO RIVERA MD May 31, 2020 11:34
[2020-05-31] MEDS ORDERED: FUROSEMIDE 40 MG/4 ML VIAL. IVP ONE (12:00)
[2020-05-31] MEDS ORDERED: FERR325T72 PO (13:17)
--- NOTE | 2020-05-31 13:21 | PDOC ---
DATE OF SERVICE: DATE: 05/31/20 TIME: 13:21 GENERAL General: see discharge summary. VITAL SIGNS/I&O Vital Signs/I&O: Vital Signs Date Time Temp Pulse Resp B/P (MAP) Pulse Ox O2 Delivery O2 Flow Rate FiO2 05/31/20 11:00 97.8 97 18 138/80 (99) 93 Room Air 97.8 I & O 05/30/20 05/30/20 05/31/20 15:00 23:00 07:00 Output Total 0 ml 0 ml Balance 0 ml 0 ml ALLERGIES Allergies: Allergies Coded Allergies Type Severity Reaction Last Updated Verified shrimp Allergy Intermediate Rash 12/12/19 Yes MEDS Medications: Current Medications Medications (Trade) Dose Ordered Sig/Kira Route PRN Reason Start Time Stop Time Status Last Admin Dose Admin Methylprednisolone Sodium Succinate (SOLU-Medrol 40MG VIAL) 40 mg Q8HRS IV 05/30/20 14:00 05/31/20 11:36 DC 05/31/20 06:46 Ferrous Sulfate (Feosol) 325 mg BID PO 05/30/20 21:00 05/31/20 11:29 Pantoprazole Sodium (Protonix) 40 mg DAILYAC PO 05/31/20 07:30 05/31/20 06:44 LAB Lab: Laboratory Tests Test 05/31/20 07:55 White Blood Count 26.0 x10^3/uL (4.0-11.0) H Red Blood Count 3.71 x10^6/uL (3.50-5.40) Hemoglobin 7.6 g/dL (12.0-15.5) L Hematocrit 25.5 % (36.0-47.0) L Mean Corpuscular Volume 69 fL (79-100) L Mean Corpuscular Hemoglobin 21 pg (25-35) L Mean Corpuscular Hemoglobin Concent 30 g/dL (31-37) L Red Cell Distribution Width 25.6 % (11.5-14.5) H Platelet Count 515 x10^3/uL (140-400) H Neutrophils (%) (Auto) 85 % (31-73) H Lymphocytes (%) (Auto) 12 % (24-48) L Monocytes (%) (Auto) 3 % (0-9) Eosinophils (%) (Auto) 0 % (0-3) Basophils (%) (Auto) 0 % (0-3) Neutrophils # (Auto) 22.1 x10^3/uL (1.8-7.7) H Lymphocytes # (Auto) 3.2 x10^3/uL (1.0-4.8) Monocytes # (Auto) 0.7 x10^3/uL (0.0-1.1) Eosinophils # (Auto) 0.0 x10^3/uL (0.0-0.7) Basophils # (Auto) 0.1 x10^3/uL (0.0-0.2) Segmented Neutrophils % 88 % (35-66) H Band Neutrophils % 2 % (0-9) Lymphocytes % 9 % (24-48) L Monocytes % 1 % (0-10) Nucleated Red Blood Cells 1 Platelet Estimate Increased (ADEQUATE) Large Platelets Present Hypochromasia Marked Anisocytosis Marked Microcytosis Marked Laboratory Tests 05/31/20 07:55 Justicifation of Admission Dx: Justifications for Admission: Justification of Admission Dx: Yes ANABEL MARTÍNEZ MD May 31, 2020 13:21
--- NOTE | 2020-05-31 14:39 | DS ---
DATE OF DISCHARGE: 05/31/2020 PRIMARY DIAGNOSIS: Symptomatic anemia. ADDITIONAL DIAGNOSES: 1. Acute systolic congestive heart failure secondary to anemia. 2. Diabetes. 3. Hyperlipidemia. 4. Peripheral arterial disease prior gastrointestinal bleeding. CHIEF COMPLAINT AND HISTORY OF PRESENT ILLNESS: This 69-year-old white female admitted through the office with 2 weeks of shortness of breath. She is quite pale. The differential was that of a COPD exacerbation versus anemia. SUMMARY OF STAY: The patient was admitted, hemoglobin was less than 5. She was given 2 units of packed red blood cells with resolution of majority of her symptoms. She was also diuresed as she had heart failure, present on chest x-ray on admission, felt due to the anemia. She was much improved. GI recommended no further workup. She did have extremely low red blood cell indices and was started on p.o. iron, which she was tolerating at the time of discharge and we will need to follow up CBC as we go into the future. She has had prior exhaustive workup for cryptogenic GI bleeding. She was felt ready for discharge and on the day of dismissal, this was accomplished. DISPOSITION: The patient is discharged to home. DIET: Regular diet. ACTIVITY: As tolerated. FOLLOWUP: Office in 1 week. DISCHARGE MEDICATIONS: Regular medicines plus iron sulfate 325 mg p.o. b.i.d. with food. ANABEL MARTÍNEZ MD DR: IZA/heriberto JOB#: [id number] / [id number]
--- NOTE | 2020-05-31 14:40 | NUR ---
Patient discharged at approximately 1420. Patient verbalized understanding of discharge instructions. Patient had no questions at this time. Prescriptions were e scribed.
== END 2020-05-31 14:20 | disposition home or self-care (01) | DRG 291 ==
LOC: 4 NORTH 09:09
PROVIDERS: ADMIT Family Medicine; ATTEND Family Medicine
PROC: 30233N1 Transfusion of Nonautologous Red Blood Cells into Peripheral Vein, Percutaneous Approach (ICD-10-PCS; principal; 2020-05-29)
DX: I11.0 Hypertensive heart disease with heart failure (principal); J96.01 Acute respiratory failure with hypoxia; I50.21 Acute systolic (congestive) heart failure; J44.1 Chronic obstructive pulmonary disease with (acute) exacerbation; N39.0 Urinary tract infection, site not specified; D64.9 Anemia, unspecified; D36.9 Benign neoplasm, unspecified site; E11.51 Type 2 diabetes mellitus with diabetic peripheral angiopathy without gangrene; E78.5 Hyperlipidemia, unspecified; E89.0 Postprocedural hypothyroidism; F17.210 Nicotine dependence, cigarettes, uncomplicated; F32.9 Major depressive disorder, single episode, unspecified; K57.30 Diverticulosis of large intestine without perforation or abscess without bleeding; M10.9 Gout, unspecified; R56.9 Unspecified convulsions; Z79.82 Long term (current) use of aspirin; Z96.653 Presence of artificial knee joint, bilateral; K21.9 Gastro-esophageal reflux disease without esophagitis
CPT/HCPCS: 36415; 71045; 80053; 81001; 82607; 85007; 85025; 86850; 86900; 86901; 86920; J0456; J0696; J1940; J2920; J2930; J3490; J7050; P9016; G0378; J7030

== ENCOUNTER 2020-06-01 03:14 | Inpatient (IN) | payer MEDICARE, MEDICAID ==
[~2020-06-01] VITALS: Ht 172.7 cm; Wt 80.9 kg
[2020-06-01] VITALS (7 sets, daily range): BP systolic 131–158; BP diastolic 56–73
[~2020-06-01 03:14] MED LIST changes: +FERR325T72 PO
--- NOTE | 2020-06-01 03:58 | PHYS DOC ---
Past Medical History Past Medical History: Arthritis, COPD, Diabetes-Type II, GERD, High Haylee sterol, Hypertension, TIA, Other Additional Past Medical Histor: CATARACTS, MACULAR DEGENERATION, NEUROPATHY, EMPHYSEMA Past Surgical History: Other Additional Past Surgical Histo: STINT TO LEFT HIP, PARTIAL THYROIDECTOMY, L INGUINAL HERNIA Smoking Status: Current Every Day Smoker Alcohol Use: None General Adult EDM: Chief Complaint: ABDOMINAL PAIN HPI: HPI: Patient is a 69 year old female who presents with acute onset of periumbilical abdominal pain and nausea. Patient states that she was at her home this evening about 9 PM was sitting down watching the [facility] ballgame when she began to have nausea followed by a sharp pain in her periumbilical area. This pain does not radiate and is been constant. She does report that does seem to wax and wane. She has had multiple episodes of emesis. She denies any diar delmy, melena or hematochezia. Patient reports she has had multiple intra- abdominal surgeries. She was diagnosed with colon cancer and had a partial colectomy. Otherwise she had been in her usual state of fair health reporting that she received 2 units of blood for anemia yesterday and was discharged. Patient was able to eat on Wednesday and really did well until 9 PM on Wednesday nig . Review of Systems: Review of Systems: Constitutional: Denies fever or chills. [] Eyes: Denies change in visual acuity. [] HENT: Denies nasal congestion or sore throat. [] Respiratory: Denies cough or shortness of breath. [] Cardiovascular: Denies chest pain or edema. [] GI: See HPI. [] : Denies dysuria. [] Musculoskeletal: Denies back pain or joint pain. [] Integument: Denies rash. [] Neurologic: Denies headache, focal weakness or sensory changes. [] Endocrine: Denies polyuria or polydipsia. [] Lymphatic: Denies swollen glands. [] Psychiatric: Denies depression or anxiety. [] Heart Score: Risk Factors: Risk Factors: DM, Current or recent (<one month) smoker, HTN, HLP, family history of CAD, obesity. Risk Scores: Score 0 - 3: 2.5% MACE over next 6 weeks - Discharge Home Score 4 - 6: 20.3% MACE over next 6 weeks - Admit for Clinical Observation Score 7 - 10: 72.7% MACE over next 6 weeks - Early Invasive Strategies Allergies: Allergies: Allergies Coded Allergies Type Severity Reaction Last Updated Verified shrimp Allergy Intermediate Rash 12/12/19 Yes Physical Exam: PE: Constitutional: Well developed, well nourished, no acute distress, non-toxic appearance. [] HENT: Normocephalic, atraumatic, bilateral external ears normal, oropharynx dulce st, no oral exudates, nose normal. [] Eyes: PERRLA, EOMI, conjunctiva normal, no discharge. [] Neck: Normal range of motion, no tenderness, supple, no stridor. [] Cardiovascular:Heart rate regular rhythm, grade 2/6 systolic murmur, pulses 1 out of 2 dorsalis pedis bilaterally, trace edema bilaterally [] Lungs & Thorax: Bilateral breath sounds clear to auscultation [] Abdomen: Soft, hypoactive bowel sounds, tender in the periumbilical area, no guarding or rebound, mild distention, no hepatosplenomegaly. [] Skin: Warm, dry, no erythema, no rash. [] Back: No tenderness, no CVA tenderness. [] Extremities: No tenderness, no cyanosis, no clubbing, ROM intact, trace edema. [] Neurologic: Alert and oriented X 3, normal motor function, normal sensory function, no focal deficits noted. [] Psychologic: Affect normal, judgement normal, mood normal. [] EKG: EKG: [] Radiology/Procedures: Radiology/Procedures: [] Course & Med Decision Making: Course & Med Decision Making Pertinent Labs and Imaging studies reviewed. (See chart for details) [] Dragon Disclaimer: Dragon Disclaimer: This electronic medical record was generated, in whole or in part, using a voice recognition dictation system. Departure Departure Impression: Primary Impression: Acute PN (pyelonephritis) Additional Impression: Periumbilical pain Disposition: ADMITTED INPATIENT Condition: GUARDED Referrals: ANABEL MARTÍNEZ MD (PCP) Justicifation of Admission Dx: Justifications for Admission: Justification of Admission Dx: Yes Sepsis: Infection PAULY BROWNLEE MD Jun 01, 2020 03:58
[2020-06-01 04:13] LABS: BASO # 0.1 x10^3/uL (0.0-0.2); BASO % 0 % (0-3); EOS % 0 % (0-3); HEMATOCRIT 25.7 % (36.0-47.0); HEMOGLOBIN 7.8 g/dL (12.0-15.5); LYMPH # 4.6 x10^3/uL (1.0-4.8); LYMPH % 15 % (24-48); MEAN CORPUSCULAR HEMOGLOBIN 21 pg (25-35); MEAN CORPUSCULAR HGB CONC 30 g/dL (31-37); MEAN CORPUSCULAR VOLUME 69 fL (79-100); MONO # 1.9 x10^3/uL (0.0-1.1); MONO % 6 % (0-9); NEUT # 23.7 x10^3/uL (1.8-7.7); NEUT % 78 % (31-73); PLATELET COUNT 484 x10^3/uL (140-400); RED BLOOD COUNT 3.72 x10^6/uL (3.50-5.40); RED CELL DISTRIBUTION WIDTH 25.5 % (11.5-14.5); WHITE BLOOD COUNT 30.3 x10^3/uL (4.0-11.0)
[2020-06-01] MEDS ORDERED: IV NORMAL SALINE 500ML BAG 500 ML IV ONE (04:15)
[2020-06-01] MEDS ORDERED: ONDANSETRON PF 4 MG/2 ML VIAL. IVP ONE (04:15)
[2020-06-01] MEDS ORDERED: HYDROmorphone 2 MG/ML VIAL IV ONE (04:15)
[2020-06-01 04:25] LABS: CALCIUM 8.1 mg/dL (8.5-10.1); CREATININE 0.9 mg/dL (0.6-1.0); GFR 62.1; POTASSIUM 3.6 mmol/L (3.5-5.1)
[2020-06-01 04:30] LABS: ALBUMIN 3.1 g/dL (3.4-5.0); TOTAL BILIRUBIN 0.6 mg/dL (0.2-1.0); TOTAL PROTEIN 6.3 g/dL (6.4-8.2)
[2020-06-01] MEDS ORDERED: IOHEXOL 300 MG/ML 100ML VIAL. IV ONE (05:00)
[2020-06-01] MEDS ORDERED: CONTRAST GIVEN. MC PRN (05:00)
--- NOTE | 2020-06-01 05:39 | RAD ---
INDICATION: Reason: periumbilical pain, OMNI 300, 75 ML IV / Spl. Instructions: / History: COMPARISON: December 06, 2019 TECHNIQUE: Axial CT images obtained through the abdomen and pelvis with contrast. One or more of the following individualized dose reduction techniques were utilized for this examination: 1. Automated exposure control; 2. Adjustment of the mA and/or kV according to patient size; 3. Use of iterative reconstruction technique. FINDINGS: Small right greater than left pleural effusion with adjacent airspace consolidation. 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 Inferior mesenteric artery again is patent proximally. Liver is mildly low density. Nonspecific but can be seen with fatty infiltration. Small fat-containing umbilical hernia. No peripancreatic Fluid collection. Lobulated appearance of the spleen. Multiple regions of low density along the cortex of the left kidney which appears to be a new finding. No hydronephrosis. Urinary bladder is somewhat distended at time of exam. The uterus is seen. Subcentimeter low-density bilateral renal lesions which are too small to characterize but a common finding and are grossly similar to prior. Suture line is seen at the right side of the colon postoperatively. No dilated loops of bowel to suggest obstruction. Degenerative changes of the spine with multilevel central canal and neural foraminal stenosis. IMPRESSION: * Interval development of multifocal regions of low density along the left renal cortex. Given the patient's severe vascular disease with regions of stenosis or occlusion the top differential consideration would be left renal infarct. Also correlate with infectious symptoms to ensure that there is not a superimposed pyelonephritis since infection can have a similar appearance to renal infarct. * Right greater than left pleural effusion with adjacent airspace consolidation. * Severe vascular disease as described above is again seen. Electronically signed by: Cornel Negrete MD (06/01/2020 5:37 AM) [id number]
[2020-06-01] MEDS ORDERED: cefTRIAXone IV Push 2 GM VIAL. IVP ONE (06:45)
[2020-06-01] MEDS ORDERED: IV NORMAL SALINE 1000ML BAG 1,000 ML IV SCH ×3 (06:45→22:00)
[2020-06-01 07:15] LABS: BILIRUBIN,URINE NEGATIVE (NEG); CLARITY,URINE CLEAR; COLOR,URINE YELLOW; NITRITE,URINE NEGATIVE (NEG); PROTEIN,URINE NEGATIVE (NEG-TRACE); UROBILINOGEN,URINE 0.2 mg/dL (0.2 mg/dL)
[2020-06-01] MEDS: fentaNYL PF VIAL 100 MCG/2 ML VIAL IV PRN ×5 (07:23→21:46)
[2020-06-01 07:30] LABS: BACTERIA,URINE 0 /HPF (0-FEW); RBC,URINE OCC /HPF (0-2); SQUAMOUS EPITHELIAL CELL,UR OCC /LPF; WBC,URINE 0 /HPF (0-4)
--- NOTE | 2020-06-01 12:05 | PDOC1 ---
History and Physical Date of Admission Date of Admission DATE: 06/01/20 TIME: 12:05 Identification/Chief Complaint Chief Complaint SEEN IN ER WITH UNCONTROLLED DIABETES 69 year old female who presents with acute onset of periumbilical abdominal pain and nausea. Patient states that she was at her home this evening about 9 PM was sitting down watching the [facility] ballgame when she began to have nausea followed by a sharp pain in her periumbilical area. This pain does not radiate and is been constant. She does report that does seem to wax and wane. She has had multiple episodes of emesis. She denies any diarrhea, melena or hematochezia. Patient reports she has had multiple intra-abdominal surgeries. She was diagnosed with colon cancer and had a partial colectomy. Otherwise she had been in her usual state of fair health reporting that she received 2 units of blood for anemia 05/30 and was discharged. Past Medical History Past Medical History Past Medical History Past Medical History Past Medical History: Arthritis, COPD, Diabetes-Type II, GERD, High Cholesterol, Hypertension, TIA, Other Additional Past Medical Histor: CATARACTS, MACULAR DEGENERATION, NEUROPATHY, EMPHYSEMA Past Surgical History: Other Additional Past Surgical Histo: STINT TO LEFT HIP, PARTIAL THYROIDECTOMY, L INGUINAL HERNIA Smoking Status: Current Every Day Smoker Alcohol Use: None FHX COPD Cardiovascular: HTN, Hyperlipidemia, Other Pulmonary: COPD GI: GI bleed, Peptic Ulcer disease Endocrine: Diabetes Past Surgical History Past Surgical History: Hernia Repair, Other Family History Family History: No Significant, Hypertension Social History Smoke: <1 pack per day ALCOHOL: occassional Drugs: None Current Problem List Problem List Problems Medical Problems: (1) Acute PN (pyelonephritis) Status: Acute (2) Periumbilical pain Status: Acute Current Medications Current Medications Current Medications Sodium Chloride 500 ml @ 500 mls/hr 1X ONCE IV Last administered on 06/01/20at 04:25; Start 06/01/20 at 04:15; Stop 06/01/20 at 05:14; Status DC Ondansetron HCl (Zofran) 4 mg 1X ONCE IVP Last administered on 06/01/20at 04:25; Start 06/01/20 at 04:15; Stop 06/01/20 at 04:16; Status DC Hydromorphone HCl (Dilaudid) 0.5 mg 1X ONCE IV Last administered on 06/01/20at 04:26; Start 06/01/20 at 04:15; Stop 06/01/20 at 04:16; Status DC Iohexol (Omnipaque 300 Mg/ml) 75 ml 1X ONCE IV Last administered on 06/01/20at 05:14; Start 06/01/20 at 05:00; Stop 06/01/20 at 05:01; Status DC Info (CONTRAST GIVEN -- Rx MONITORING) 1 each PRN DAILY PRN MC SEE COMMENTS; Start 06/01/20 at 05:00; Stop 06/03/20 at 04:59 Ceftriaxone Sodium (Rocephin) 2 gm 1X ONCE IVP Last administered on 06/01/20at 07:23; Start 06/01/20 at 06:45; Stop 06/01/20 at 06:46; Status DC Fentanyl Citrate (Fentanyl 2ml Vial) 50 mcg PRN Q1HR PRN IV PAIN Last administered on 06/01/20at 08:31; Start 06/01/20 at 06:45; Stop 06/02/20 at 06:44 Sodium Chloride 1,000 ml @ 75 mls/hr [id number] IV Last administered on 06/01/20at 07:22; Start 06/01/20 at 06:45; Stop 06/02/20 at 06:44 Active Scripts Active Feosol (Ferrous Sulfate) 325 Mg Tablet 325 Mg PO BID 90 Days Potassium Chloride 20 Meq Tablet.er 20 Meq PO AFTRNOON 30 Days Aspirin Ec (Aspirin) 325 Mg Tablet. 325 Mg PO DAILYWBKFT 90 Days Reported Protonix (Pantoprazole Sodium) 20 Mg Tablet. 40 Mg PO DAILY Actos (Pioglitazone Hcl) 30 Mg Tablet 30 Mg PO DAILY Pravastatin Sodium 20 Mg Tablet 20 Mg PO QHS Allopurinol 100 Mg Tablet 300 Mg PO DAILY Cymbalta (Duloxetine Hcl) 60 Mg Capsule. 60 Mg PO DAILY Allergies Allergies: Coded Allergies: shrimp (Verified Allergy, Intermediate, Rash, 12/12/19) ROS Review of System Review of Systems: Review of Systems: Constitutional: Denies fever or chills. [] Eyes: Denies change in visual acuity. [] HENT: Denies nasal congestion or sore throat. [] Respiratory: Denies cough or shortness of breath. [] Cardiovascular: Denies chest pain or edema. [] GI: See HPI. [] : Denies dysuria. [] Musculoskeletal: Denies back pain or joint pain. [] Integument: Denies rash. [] Neurologic: Denies headache, focal weakness or sensory changes. [] Endocrine: Denies polyuria or polydipsia. [] Lymphatic: Denies swollen glands. [] Psychiatric: Denies depression or anxiety. [] 14 PT ROS OTHERWISE NEG Physical Exam Physical Exam Constitutional: Well developed, well nourished, no acute distress, non-toxic appearance. [] HENT: Normocephalic, atraumatic, bilateral external ears normal, oropharynx moist, no oral exudates, nose normal. [] Eyes: PERRLA, EOMI, conjunctiva normal, no discharge. [] Neck: Normal range of motion, no tenderness, supple, no stridor. [] Cardiovascular:Heart rate regular rhythm, grade 2/6 systolic murmur, pulses 1 out of 2 dorsalis pedis bilaterally, trace edema bilaterally [] Lungs & Thorax: Bilateral breath sounds clear to auscultation [] Abdomen: Soft, hypoactive bowel sounds, tender in the periumbilical area, no guarding or rebound, mild distention, no hepatosplenomegaly. [] Skin: Warm, dry, no erythema, no rash. [] Back: No tenderness, no CVA tenderness. [] Extremities: No tenderness, no cyanosis, no clubbing, ROM intact, trace edema. [] Neurologic: Alert and oriented X 3, normal motor function, normal sensory function, no focal deficits noted. [] Psychologic: Affect normal, judgment normal, mood normal. [] General: Cooperative Breasts: Not examined Abdomen: Soft Rectal Exam: not examined PELVIC: Examination not indicated Extremities: No cyanosis Neuro: Normal speech, Strength at 5/5 X4 ext, Cranial nerves 3-12 NL Psych/Mental Status: Mental status NL, Mood NL Vitals Vitals Vital Signs Date Time Temp Pulse Resp B/P (MAP) Pulse Ox O2 Delivery O2 Flow Rate FiO2 06/01/20 11:00 98.3 83 16 133/57 (82) 92 Nasal Cannula 2.0 98.3 Labs Labs Laboratory Tests Test 06/01/20 03:30 06/01/20 05:50 06/01/20 07:05 06/01/20 09:55 White Blood Count 30.3 x10^3/uL (4.0-11.0) Red Blood Count 3.72 x10^6/uL (3.50-5.40) Hemoglobin 7.8 g/dL (12.0-15.5) Hematocrit 25.7 % (36.0-47.0) Mean Corpuscular Volume 69 fL (79-100) Mean Corpuscular Hemoglobin 21 pg (25-35) Mean Corpuscular Hemoglobin Concent 30 g/dL (31-37) Red Cell Distribution Width 25.5 % (11.5-14.5) Platelet Count 484 x10^3/uL (140-400) Neutrophils (%) (Auto) 78 % (31-73) Lymphocytes (%) (Auto) 15 % (24-48) Monocytes (%) (Auto) 6 % (0-9) Eosinophils (%) (Auto) 0 % (0-3) Basophils (%) (Auto) 0 % (0-3) Neutrophils # (Auto) 23.7 x10^3/uL (1.8-7.7) Lymphocytes # (Auto) 4.6 x10^3/uL (1.0-4.8) Monocytes # (Auto) 1.9 x10^3/uL (0.0-1.1) Eosinophils # (Auto) 0.0 x10^3/uL (0.0-0.7) Basophils # (Auto) 0.1 x10^3/uL (0.0-0.2) Sodium Level 140 mmol/L (136-145) Potassium Level 3.6 mmol/L (3.5-5.1) Chloride Level 101 mmol/L (98-107) Carbon Dioxide Level 27 mmol/L (21-32) Anion Gap 12 (6-14) Blood Urea Nitrogen 42 mg/dL (7-20) Creatinine 0.9 mg/dL (0.6-1.0) Estimated GFR (Cockcroft-Gault) 62.1 BUN/Creatinine Ratio 47 (6-20) Glucose Level 165 mg/dL (70-99) Calcium Level 8.1 mg/dL (8.5-10.1) Total Bilirubin 0.6 mg/dL (0.2-1.0) Aspartate Amino Transf (AST/SGOT) 25 U/L (15-37) Alanine Aminotransferase (ALT/SGPT) 36 U/L (14-59) Alkaline Phosphatase 123 U/L (46-116) Total Protein 6.3 g/dL (6.4-8.2) Albumin 3.1 g/dL (3.4-5.0) Albumin/Globulin Ratio 1.0 (1.0-1.7) Lipase 71 U/L (73-393) Lactic Acid Level 2.4 mmol/L (0.4-2.0) 1.9 mmol/L (0.4-2.0) Urine Collection Type Unknown Urine Color Yellow Urine Clarity Clear Urine pH 7.0 (<5.0-8.0) Urine Specific [place] 1.025 (1.000-1.030) Urine Protein Negative mg/dL (NEG-TRACE) Urine Glucose (UA) Negative mg/dL (NEG) Urine Ketones (Stick) Negative mg/dL (NEG) Urine Blood Negative (NEG) Urine Nitrite Negative (NEG) Urine Bilirubin Negative (NEG) Urine Urobilinogen Dipstick 0.2 mg/dL (0.2 mg/dL) Urine Leukocyte Esterase Negative (NEG) Urine RBC Occ /HPF (0-2) Urine WBC 0 /HPF (0-4) Urine Squamous Epithelial Cells Occ /LPF Urine Bacteria 0 /HPF (0-FEW) Laboratory Tests Test 06/01/20 03:30 06/01/20 05:50 06/01/20 07:05 06/01/20 09:55 White Blood Count 30.3 x10^3/uL (4.0-11.0) Red Blood Count 3.72 x10^6/uL (3.50-5.40) Hemoglobin 7.8 g/dL (12.0-15.5) Hematocrit 25.7 % (36.0-47.0) Mean Corpuscular Volume 69 fL (79-100) Mean Corpuscular Hemoglobin 21 pg (25-35) Mean Corpuscular Hemoglobin Concent 30 g/dL (31-37) Red Cell Distribution Width 25.5 % (11.5-14.5) Platelet Count 484 x10^3/uL (140-400) Neutrophils (%) (Auto) 78 % (31-73) Lymphocytes (%) (Auto) 15 % (24-48) Monocytes (%) (Auto) 6 % (0-9) Eosinophils (%) (Auto) 0 % (0-3) Basophils (%) (Auto) 0 % (0-3) Neutrophils # (Auto) 23.7 x10^3/uL (1.8-7.7) Lymphocytes # (Auto) 4.6 x10^3/uL (1.0-4.8) Monocytes # (Auto) 1.9 x10^3/uL (0.0-1.1) Eosinophils # (Auto) 0.0 x10^3/uL (0.0-0.7) Basophils # (Auto) 0.1 x10^3/uL (0.0-0.2) Sodium Level 140 mmol/L (136-145) Potassium Level 3.6 mmol/L (3.5-5.1) Chloride Level 101 mmol/L (98-107) Carbon Dioxide Level 27 mmol/L (21-32) Anion Gap 12 (6-14) Blood Urea Nitrogen 42 mg/dL (7-20) Creatinine 0.9 mg/dL (0.6-1.0) Estimated GFR (Cockcroft-Gault) 62.1 BUN/Creatinine Ratio 47 (6-20) Glucose Level 165 mg/dL (70-99) Calcium Level 8.1 mg/dL (8.5-10.1) Total Bilirubin 0.6 mg/dL (0.2-1.0) Aspartate Amino Transf (AST/SGOT) 25 U/L (15-37) Alanine Aminotransferase (ALT/SGPT) 36 U/L (14-59) Alkaline Phosphatase 123 U/L (46-116) Total Protein 6.3 g/dL (6.4-8.2) Albumin 3.1 g/dL (3.4-5.0) Albumin/Globulin Ratio 1.0 (1.0-1.7) Lipase 71 U/L (73-393) Lactic Acid Level 2.4 mmol/L (0.4-2.0) 1.9 mmol/L (0.4-2.0) Urine Collection Type Unknown Urine Color Yellow Urine Clarity Clear Urine pH 7.0 (<5.0-8.0) Urine Specific [place] 1.025 (1.000-1.030) Urine Protein Negative mg/dL (NEG-TRACE) Urine Glucose (UA) Negative mg/dL (NEG) Urine Ketones (Stick) Negative mg/dL (NEG) Urine Blood Negative (NEG) Urine Nitrite Negative (NEG) Urine Bilirubin Negative (NEG) Urine Urobilinogen Dipstick 0.2 mg/dL (0.2 mg/dL) Urine Leukocyte Esterase Negative (NEG) Urine RBC Occ /HPF (0-2) Urine WBC 0 /HPF (0-4) Urine Squamous Epithelial Cells Occ /LPF Urine Bacteria 0 /HPF (0-FEW) Images Images SURGEON: Carmela Pinto MD MAC ARTIST: Han Metcalf MD PREOPERATIVE DIAGNOSIS: Chronic mesenteric ischemia, symptomatic with abdominal pain and weight loss secondary to occlusion of her superior mesenteric artery stent and significant atherosclerotic disease, 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 OPERATION PERFORMED: Supraceliac aorta to common hepatic artery and superior mesenteric artery bypass using a 12 mm x 6 mm bifurcated PTFE graft. ANESTHESIA USED: General anesthesia. BLOOD LOSS: 180 mL. INDICATIONS: The patient is a 69-year-old female who has had a long history of chronic mesenteric artery disease causing symptomatic ischemia. She underwent a superior mesenteric artery stent almost a year ago for abdominal pain and weight loss, the stent has since occluded on imaging study. She has had a CT angiogram of her abdomen and pelvis, which shows occlusion of the superior mesenteric artery stent with extensive atherosclerotic disease within the proximal vessel and severe atherosclerotic disease and stenosis of the celiac artery and proximal vessels. She has had several months of significant abdominal pain following eating and has suffered a weight loss of approximately 30 pounds over the past several months. I feel her next option of treatment entails a superior mesenteric artery bypass to improve her circulation. She was evaluated by Cardiology and felt to be at adequate risk for mesenteric artery bypass. Her supraceliac aorta has mild calcification, and she is a candidate for supraceliac aorta to both common hepatic artery and superior mesenteric artery bypass to improve her celiac artery perfusion and improve her circulation to her superior mesenteric artery and BAL. Informed consent was obtained including the risks of bleeding, infection, bypass graft failure leading to worsening mesenteric ischemia and hepatic ischemia, possible cardiac and pulmonary complications. DETAILS OF THE OPERATION: The patient was brought to the operating room and placed on table in supine position. She received general anesthesia and monitored throughout the case by the anesthesiologist. Her abdomen, pelvis, groins, and thighs were prepped and draped by normal sterile fashion. We made a longitudinal incision in the upper abdomen down to just below the umbilicus. The subcutaneous tissue was dissected down with electrocautery and the fascia was incised longitudinally with electrocautery. We entered the peritoneal cavity and opened the fascia along the length of the incision. Her bowel and stomach appeared healthy with no signs of severe ischemia to her bowel. We began by retracting the stomach and transverse colon superiorly exposing the root of the mesentery and dissecting out through the mesentery to the superior mesenteric artery vessels. The superior mesenteric artery was dissected out the mid segment. We were able to find a nice healthy area of vessel that was soft and compressible. More proximal to this and our dissection, the vessel was calcified and noncompressible. We were able to identify all the branches and encircle them with vessel loops. We had a good segment of superior mesenteric artery for the distal bypass and this vessel was of good diameter. We then created a tunnel on the anterior surface of the superior mesenteric artery up towards the proximal aorta. We then removed our retractors. We pulled the stomach inferior. We took down the tissue to enter the lesser sac in the area of the common hepatic artery. We dissected down to these tissues and identified the common hepatic artery. It was dissected out proximally and distally. We identified the gastroduodenal branch tracking inferiorly, and we placed vessel loops around this vessel. It was soft and of good diameter size for a distal anastomosis. We then moved our retractors. We went to the portion of the supraceliac aorta. We dissected out the tissues over this area identifying the esophagus with the nasogastric tube in place. We mobilized this to left side of the abdomen, dissecting out tissues on the right lateral surface of the esophagus to get down to the aorta and muscular alesia structures. We took down the muscular alesia, which was overlying the supraceliac aorta and dissected out the supraceliac aorta proximally and distally. It was soft. There was mild calcification in the posterior wall, but the vessel was easily compressible. We dissected out proximally and distally in this location. We then continued our tunnel on the anterior lateral side off to the left of the aorta making a tunnel from the superior mesenteric artery just on top of the surface of the aorta. We took the tunnel up from the superior mesenteric artery in the lower abdomen up to the supraceliac aorta and advanced a clamp through this tunnel. We chose a 12 x 6 mm bifurcated PTFE graft and we pulled the left limb of the graft down through the tunnel. The patient was heparinized with 7000 units of heparin. After 3 minutes, we clamped the proximal and distal supraceliac aorta. We performed an arteriotomy in the anterior wall. The graft was then cut to length and spatulated, and we performed an end-to-side anastomosis between the open aorta and the PTFE graft using HS5 Prolene suture. After finishing this anastomosis, we backbled the distal aorta through the graft and we flushed the proximal aorta through the graft and then we restored blood flow. There was good pulsatile blood flow through the end of the graft. There was good hemostasis along the anastomosis. The graft lied very nicely with no tension and no kinks in the graft. We then brought the right limb of the graft over to the area of the common hepatic artery. We clamped the common hepatic artery proximally and distally and made a longitudinal arteriotomy in the anterior wall. The vessel was widely patent with no significant plaque. We cut the graft to length and spatulated the end. We performed an end-to-side anastomosis with running HS7 Prolene suture. Prior to finishing, we backbled the vessels. There was pulsatile blood flow through the end of the graft and we finished the anastomosis and restored blood flow. There was good hemostasis. We then went to the superior mesenteric artery location. The distal limb of the graft was already through the tunnel. We clamped the proximal and distal superior mesenteric artery and performed a longitudinal arteriotomy. The vessel was widely patent. There was backbleeding from the distal vessel and the distal end was widely patent with no significant plaque. We cut the graft to length and spatulated it and performed an anastomosis in end-to-side fashion using running HS7 Prolene suture. Prior to finishing, we backbled the vessel. There was pulsatile inflow through the limb. We finished the anastomosis and restored blood flow. There was strong dopplerable flow in the distal superior mesenteric artery and in the distal hepatic artery which was graft dependent. We irrigated all areas of anastomosis with antibiotic solution. We placed fibula around each anastomosis and the aorta. There was good hemostasis. There were no bends or kinks within the graft. At the aortic location, we closed the peritoneal layer over the graft with running 2-0 Vicryl suture to fully cover the graft. We covered the graft down at the superior mesenteric artery location with covering the tissue over this with running 2-0 Vicryl suture. We removed all laps and retractors. We then closed the fascial layer with running looped PDS suture and we closed the skin with steph. She tolerated the surgery well. She had dopplerable flow in her feet at the end of the case. CARMELA PINTO MD DR: YOVANA/heriberto JOB#: [id number] / [id number] DICTATED BY: CARMELA PINTO MD 12/13/19 1110 SIGNED BY: CARMELA PINTO MD 12/19/19 0707 cc: ANABEL MARTÍNEZ MD; CARMELA PINTO MD ~ CT angiography of the abdomen and pelvis. INDICATION: Chronic mesenteric ischemia, previously stented SMA, and the previously thrombosed. Possible forthcoming surgical bypass. Technique: CT imaging of the abdomen and pelvis performed following the administration of IV contrast. 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 This is unchanged. Persistently occluded superior mesenteric artery stent. Thrombosis extends distally into the nondistended SMA, to a essentially identical extent with respect to comparison study. The inferior mesenteric artery is patent, and appears to be supplying collateral flow. Similar hypertrophy of upper abdominal vessels including left hepatic artery, and gastric arteries again noted. . Liver, gallbladder, spleen, adrenal glands and pancreas appear unremarkable. Kidneys appear stable. There is a small right-sided suspected spigelian type hernia which appears to only contain fat. No evidence of bowel obstruction is present. There is prominent vascular enhancement of the cecum that probably is reflective of collateralized demand to the intestinal vasculature after the SMA occlusion. A vascular malformation was not seen on past studies but is not entirely excluded. Lung bases are stable in appearance. 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 The inferior mesenteric artery remains patent. PQRS Compliance Statement: One or more of the following individualized dose reduction techniques were utilized for this examination: 1. Automated exposure control 2. Adjustment of the mA and/or kV according to patient size 3. Use of iterative reconstruction technique Electronically signed by: Fady Miller MD (12/06/2019 12:18 PM) [id number] DICTATED and SIGNED BY: FADY MILLER MD DATE: 12/06/19 1218 COMPARISON: December 06, 2019 TECHNIQUE: Axial CT images obtained through the abdomen and pelvis with contrast. One or more of the following individualized dose reduction techniques were utilized for this examination: 1. Automated exposure control; 2. Adjustment of the mA and/or kV according to patient size; 3. Use of iterative reconstruction technique. FINDINGS: Small right greater than left pleural effusion with adjacent airspace consolidation. 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 Inferior mesenteric artery again is patent proximally. Liver is mildly low density. Nonspecific but can be seen with fatty infiltration. Small fat-containing umbilical hernia. No peripancreatic Fluid collection. Lobulated appearance of the spleen. Multiple regions of low density along the cortex of the left kidney which appears to be a new finding. No hydronephrosis. Urinary bladder is somewhat distended at time of exam. The uterus is seen. Subcentimeter low-density bilateral renal lesions which are too small to characterize but a common finding and are grossly similar to prior. Suture line is seen at the right side of the colon postoperatively. No dilated loops of bowel to suggest obstruction. Degenerative changes of the spine with multilevel central canal and neural foraminal stenosis. IMPRESSION: * Interval development of multifocal regions of low density along the left renal cortex. Given the patient's severe vascular disease with regions of stenosis or occlusion the top differential consideration would be left renal infarct. Also correlate with infectious symptoms to ensure that there is not a superimposed pyelonephritis since infection can have a similar appearance to renal infarct. * Right greater than left pleural effusion with adjacent airspace consolidation. * Severe vascular disease as described above is again seen. Electronically signed by: Jose Pollack MD (06/01/2020 5:37 AM) [id number] DICTATED and SIGNED BY: JOSE POLLACK MD DATE: 06/01/20 0537 VTE Prophylaxis Ordered VTE Prophylaxis Devices: No VTE Pharmacological Prophylaxi: Yes Assessment/Plan Assessment/Plan Impression: Acute pyelonephritis interval development of multifocal regions of low density along the left renal cortex. Given the patient's severe vascular disease with regions of stenosis or occlusion the top differential consideration would be left renal infarct. Also correlate with infectious symptoms to ensure ? superimposed pyelonephritis since infection can have a similar appearance to renal infarct. High-grade narrowing of the proximal celiac artery with contrast again seen more distally within the hepatic artery which could be secondary to collateral flow or a tiny amount of contrast passing distal to this site of near occlusion. 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 There is also a repeat demonstration of graft which appears thrombosed. Inferior mesenteric artery again is patent proximally. 12/13/19 Supraceliac aorta to common hepatic artery and superior mesenteric artery bypass using a 12 mm x 6 mm bifurcated PTFE graft. Liver is mildly low density. Nonspecific but can be seen with fatty infiltration. Small fat-containing umbilical hernia. No peripancreatic Fluid collection. Lobulated appearance of the spleen. Multiple regions of low density along the cortex of the left kidney which appears to be a new finding. Right greater than left pleural effusion with adjacent airspace consolidation. Tobacco abuse Severe vascular disease Periumbilical pain systolic congestive heart failure secondary to anemia. Diabetes. Hyperlipidemia. Peripheral arterial disease prior gastrointestinal bleeding. MICROCYTIC ANEMIA SEPSIS ADMITTED EMPERIC IV ANTIBIOTICS , ZOSYN ///PENDING ID CONSULT blood culture CT CHEST PULM CONSULT DVT PROPHYLAXIS ID CONSULT gi consult consult DR ANDREA SUTTON GRAFT OCCLUSION, THROMBOSIS 85 MIN PT EXAM, CHART REVIEW, > 50% OF TIME SPENT WITH EXAM, CHART REVIEW, PT CARE COORDINATION Justicifation of Admission Dx: Justifications for Admission: Justification of Admission Dx: Yes Sepsis: Infection MAIDA DUQUE MD Jun 01, 2020 12:05
[2020-06-01] MEDS ORDERED: ACETAMINOPHEN 325 MG TABLET. PO PRN (12:30)
[2020-06-01] MEDS ORDERED: MAG HYDROX/ALUMINUM HYD/SIMETH 30 ML ORAL.SUSP PO PRN (12:30)
[2020-06-01] MEDS ORDERED: cloNIDine HCL 0.1 MG TABLET PO PRN (12:30)
[2020-06-01] MEDS ORDERED: 0.9 % SODIUM CHLORIDE 10 ML DISP.SYRIN. IV PRN (12:30)
[2020-06-01] MEDS ORDERED: SODIUM PHOSPHATES 19/7GM 133 ML ENEMA. PR PRN (12:30)
[2020-06-01] MEDS ORDERED: DOCUSATE SODIUM 100 MG CAPSULE. PO PRN (12:30)
[2020-06-01] MEDS ORDERED: ONDANSETRON PF 4 MG/2 ML VIAL. IV PRN ×2 (12:30→19:45)
[2020-06-01] MEDS ORDERED: ENOXAPARIN 40 MG/0.4 ML SYRINGE. SQ SCH (12:30)
[2020-06-01] MEDS ORDERED: guaiFENesin ORAL 200 MG/10 ML LIQUID. PO PRN (12:30)
--- NOTE | 2020-06-01 13:30 | PDOC ---
Infectious Disease Note Vital Sign Vital Signs Vital Signs Date Time Temp Pulse Resp B/P (MAP) Pulse Ox O2 Delivery O2 Flow Rate FiO2 06/01/20 11:00 98.3 83 16 133/57 (82) 92 Nasal Cannula 2.0 98.3 Labs Lab Laboratory Tests Test 06/01/20 03:30 06/01/20 05:50 06/01/20 07:05 06/01/20 09:55 White Blood Count 30.3 x10^3/uL (4.0-11.0) Red Blood Count 3.72 x10^6/uL (3.50-5.40) Hemoglobin 7.8 g/dL (12.0-15.5) Hematocrit 25.7 % (36.0-47.0) Mean Corpuscular Volume 69 fL (79-100) Mean Corpuscular Hemoglobin 21 pg (25-35) Mean Corpuscular Hemoglobin Concent 30 g/dL (31-37) Red Cell Distribution Width 25.5 % (11.5-14.5) Platelet Count 484 x10^3/uL (140-400) Neutrophils (%) (Auto) 78 % (31-73) Lymphocytes (%) (Auto) 15 % (24-48) Monocytes (%) (Auto) 6 % (0-9) Eosinophils (%) (Auto) 0 % (0-3) Basophils (%) (Auto) 0 % (0-3) Neutrophils # (Auto) 23.7 x10^3/uL (1.8-7.7) Lymphocytes # (Auto) 4.6 x10^3/uL (1.0-4.8) Monocytes # (Auto) 1.9 x10^3/uL (0.0-1.1) Eosinophils # (Auto) 0.0 x10^3/uL (0.0-0.7) Basophils # (Auto) 0.1 x10^3/uL (0.0-0.2) Sodium Level 140 mmol/L (136-145) Potassium Level 3.6 mmol/L (3.5-5.1) Chloride Level 101 mmol/L (98-107) Carbon Dioxide Level 27 mmol/L (21-32) Anion Gap 12 (6-14) Blood Urea Nitrogen 42 mg/dL (7-20) Creatinine 0.9 mg/dL (0.6-1.0) Estimated GFR (Cockcroft-Gault) 62.1 BUN/Creatinine Ratio 47 (6-20) Glucose Level 165 mg/dL (70-99) Calcium Level 8.1 mg/dL (8.5-10.1) Total Bilirubin 0.6 mg/dL (0.2-1.0) Aspartate Amino Transf (AST/SGOT) 25 U/L (15-37) Alanine Aminotransferase (ALT/SGPT) 36 U/L (14-59) Alkaline Phosphatase 123 U/L (46-116) Total Protein 6.3 g/dL (6.4-8.2) Albumin 3.1 g/dL (3.4-5.0) Albumin/Globulin Ratio 1.0 (1.0-1.7) Lipase 71 U/L (73-393) Lactic Acid Level 2.4 mmol/L (0.4-2.0) 1.9 mmol/L (0.4-2.0) Urine Collection Type Unknown Urine Color Yellow Urine Clarity Clear Urine pH 7.0 (<5.0-8.0) Urine Specific [place] 1.025 (1.000-1.030) Urine Protein Negative mg/dL (NEG-TRACE) Urine Glucose (UA) Negative mg/dL (NEG) Urine Ketones (Stick) Negative mg/dL (NEG) Urine Blood Negative (NEG) Urine Nitrite Negative (NEG) Urine Bilirubin Negative (NEG) Urine Urobilinogen Dipstick 0.2 mg/dL (0.2 mg/dL) Urine Leukocyte Esterase Negative (NEG) Urine RBC Occ /HPF (0-2) Urine WBC 0 /HPF (0-4) Urine Squamous Epithelial Cells Occ /LPF Urine Bacteria 0 /HPF (0-FEW) Objective Assessment pt seen, consult dictated Plan Plan of Care / AMANDA RAPHAEL MD Jun 01, 2020 13:30
[2020-06-01] MEDS: ASPIRIN ENTERIC COATED 325 MG TABLET.DR. PO SCH (13:31)
[2020-06-01] MEDS: POTASSIUM CHLORIDE 20 MEQ TABLET.ER. PO SCH (13:31)
[2020-06-01] MEDS: DULoxetine HCL 30 MG CAPSULE.DR PO SCH (13:31)
[2020-06-01] MEDS: PIPERACILLIN/TAZOBACTAM 3.375 GM in IV NORMAL SALINE 50ML 50 ML IV SCH ×2 (13:31→16:56)
[2020-06-01] MEDS: ALLOPURINOL 300 MG TABLET. PO SCH (13:31)
--- NOTE | 2020-06-01 13:56 | CONS ---
DATE OF CONSULTATION: 06/01/2020 REQUESTING PHYSICIAN: Dr. Murphy. REASON FOR CONSULTATION: Pyelonephritis. HISTORY OF PRESENT ILLNESS: This is a 69-year-old female, who was admitted with abdominal pain and nausea. The patient says she was watching TV after she just had her dinner and a sudden onset of nausea and abdominal pain around the umbilical area started. The patient reported that the pain comes and goes and multiple episodes of vomiting then she had. The patient denies any fever; denies any urinary symptoms; denies any diarrhea; denies any black stool or blood per rectum; denies any headache, visual symptoms, or chest pain. PAST MEDICAL HISTORY: Positive for diabetes, chronic obstructive pulmonary disease, gastroesophageal reflux disease, hyperlipidemia, transient ischemic attack, and macular degeneration. PAST SURGICAL HISTORY: The patient has had abdominal surgeries done with even appears to be bypass. The patient has a partial 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 done and a hip surgery done. SOCIAL HISTORY: She still smokes. No alcohol use or drug use. ALLERGIES: No known drug allergies. CURRENT MEDICATIONS: Reviewed. The patient is started on Zosyn. REVIEW OF SYSTEMS: As per history of present illness; all other systems reviewed are negative. PHYSICAL EXAMINATION: GENERAL: Alert, oriented female, not in distress. VITAL SIGNS: Stable, afebrile. HEENT: NAD. NECK: Supple, no JVP, no lymphadenopathy. LUNGS: Clear. HEART: S1, S2 regular. ABDOMEN: Soft, nontender, no organomegaly. EXTREMITIES: No edema or cyanosis. SKIN: Unremarkable. NEUROLOGIC: The patient is neurologically alert, awake, and appropriate. No focal neurologic deficit. LABORATORY DATA: White count is 30,000. BUN and creatinine are 42 and 0.9. Lactic acid is 2.4. Liver functions are normal. Urinalysis is completely normal or negative for infection. IMAGING: Abdominal CT showed the patient has multifocal regions of low density into the left renal cortex, likely to be infarct. The patient has a small effusion. The patient also has multiple high-grade narrowing of the proximal celiac artery, focal occlusion of the superior mesenteric artery, and repeat demonstration of the graft, which again appears thrombosed. IMPRESSION: 1. Abdominal pain, nausea, and vomiting, most likely secondary to mesenteric ischemia; do not believe the patient has pyelonephritis or any urinary tract infection. 2. Leukocytosis is reactive. 3. 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 4. Continued tobaccoism still. 5. Chronic obstructive pulmonary disease. 6. Hypertension. 7. Hyperlipidemia. 8. Diabetes. RECOMMENDATIONS: We would continue antibiotics, supportive care, hydration, and consider a Vascular Surgery consultation. I do not anticipate long-term antibiotics. The patient was also advised to quit smoking. Thank you very much, Dr. Murphy, for giving me the opportunity to participate in this patient's care. AMANDA RAPHAEL MD DR: LI/heriberto JOB#: [id number] / [id number]
[2020-06-01] MEDS: IPRATRPIUM/ALBUTEROL 0.5/2.5MG 3 ML NEBU. NEB SCH ×3 (14:00→22:00)
[2020-06-01] MEDS: PANTOPRAZOLE 40 MG TABLET.DR. PO SCH (16:30)
[2020-06-01] MEDS: FERROUS SULFATE 325 MG TABLET. PO SCH (16:40)
[2020-06-01] MEDS ORDERED: SEVOFLURANE > 120 MINUTES. IH ONE (16:50)
[2020-06-01] MEDS ORDERED: fentaNYL PF VIAL 100 MCG/2 ML VIAL ONE ×3 (16:51→19:24)
[2020-06-01] MEDS ORDERED: MIDAZOLAM HCL/PF 2 MG/2 ML VIAL. ONE (16:51)
[2020-06-01] MEDS ORDERED: ROCURONIUM 50 MG/5 ML VIAL. ONE ×2 (16:51→19:11)
[2020-06-01] MEDS ORDERED: GLYCOPYRROLATE 1 MG/5 ML VIAL. ONE (16:51)
[2020-06-01] MEDS ORDERED: SUCCINYLCHOLINE 200 MG/10 ML VIAL. ONE (16:51)
[2020-06-01] MEDS ORDERED: NEOSTIGMINE METHYLSULFATE 5 MG/5 ML SYRINGE. ONE (16:51)
[2020-06-01] MEDS ORDERED: PROPOFOL 10 MG/ML (20ML) VIAL. IV ONE (16:52)
[2020-06-01] MEDS ORDERED: HEPARIN for IV BOLUS 10,000 UNIT/10 ML VIAL. ONE ×2 (16:52→17:45)
[2020-06-01] MEDS ORDERED: DEXAMETHASONE SOD PHOS 4 MG/ML VIAL ONE ×2 (16:52)
[2020-06-01] MEDS ORDERED: LIDOCAINE 2% PF 5 ML VIAL. ONE (16:52)
[2020-06-01] MEDS ORDERED: ONDANSETRON PF 4 MG/2 ML VIAL. ONE (16:52)
[2020-06-01] MEDS ORDERED: PHENYLEPHRINE in 0.9% NACL PF 1 MG/10 ML SYRINGE. IV ONE (16:54)
[2020-06-01] MEDS ORDERED: HEPARIN SODIUM 5,000 UNIT in IV NORMAL SALINE 500ML BAG 500 ML IRR ONE (17:30)
[2020-06-01] MEDS ORDERED: LIDOCAINE 1% PF 2 ML VIAL. ONE (17:34)
[2020-06-01] MEDS ORDERED: SURGICEL FIBRILLAR 1X2 EACH. ONE (17:45)
[2020-06-01] MEDS ORDERED: IV RINGERS,LACTATED 1000ML 1,000 ML IV SCH (19:38)
[2020-06-01] MEDS ORDERED: PROCHLORPERAZINE 10 MG/2 ML VIAL. IV PRN (19:45)
[2020-06-01] MEDS ORDERED: MORPHINE SULFATE 2 MG/ML VIAL. IV PRN (19:45)
[2020-06-01] MEDS ORDERED: HYDROmorphone 2 MG/ML VIAL IV PRN (19:45)
[2020-06-01] MEDS ORDERED: fentaNYL PF VIAL 100 MCG/2 ML VIAL IV PRN (19:45)
[2020-06-01] MEDS ORDERED: LIDOCAINE 1% PF 2 ML VIAL. ID PRN (19:45)
--- NOTE | 2020-06-01 20:18 | PDOC ---
BRIEF OPERATIVE NOTE Date: Jun 01, 2020 Pre-Op Diagnosis Acute mesenteric ischemia Post-Op Diagnosis Same Procedure Performed SMA Thrombectomy Exploratory Laparotomy and extensive lysis of adhesions Surgeon Yue Cadet DO, FACS Carmela Pinto MD, FACS Anesthesia Type: General Blood Loss 175 mL Findings Thrombosed bypass graft to SMA Complications None Operative Note Dictated YUE CADET DO Jun 01, 2020 20:18
[2020-06-01] MEDS ORDERED: HEPARIN for IV BOLUS 10,000 UNIT/10 ML VIAL. IV PRN ×2 (20:30)
[2020-06-01] MEDS: ATORVASTATIN CALCIUM 10 MG TABLET. PO SCH (21:00)
[2020-06-01] MEDS: LACTOBACILLUS RHAMNOSUS GG 1 CAPSULE. PO SCH (21:00)
--- NOTE | 2020-06-01 21:00 | NUR ---
Arrived to ICU bed [address] Rose at bedside and FAUSTO Segura. Patient will be recovered by OR RNx2. Extubated in the OR.
--- NOTE | 2020-06-01 21:24 | RAD ---
PORTABLE CHEST 1V History: Reason: CVL line placement icu#105 / Spl. Instructions: / History: Comparison: May 31, 2020 Findings: Interval placement right IJ central line with tip projecting over the mid SVC. No pneumothorax. Diffuse interstitial thickening. Increased right mid and basilar opacity. Small bilateral pleural effusions. Interval placement enteric tube with tip below the diaphragm beyond the image. Unchanged heart size. Impression: 1. Interval placement right IJ central line and enteric tube. 2. Diffuse interstitial thickening with increased patchy right mid and basilar opacity. 3. Small bilateral pleural effusions, increased on the left. Electronically signed by: Albert Hammer DO (06/01/2020 9:20 PM) [facility]
[2020-06-01] MEDS: HEPARIN 25,000UTS/250ML PREMIX 250 ML IV PRN (21:44)
[2020-06-01 21:55] LABS: HEMATOCRIT 33.5 % (36.0-47.0); HEMOGLOBIN 10.4 g/dL (12.0-15.5); RED BLOOD COUNT 4.54 x10^6/uL (3.50-5.40); RED CELL DISTRIBUTION WIDTH 27.4 % (11.5-14.5); WHITE BLOOD COUNT 26.4 x10^3/uL (4.0-11.0)
--- NOTE | 2020-06-01 22:00 | NUR ---
Report received from FAUSTO Livingston. Unable to get complete report at this time. Roya LAMBERT from brought patient belongings and advised patient was taken to OR prior to shift change and received report but unable to assess. Dr. Pinto notified and clarified admitting status. Orders received. Arterial line and jackson in place. LR replaced with NS. Dressings midline dry and intact. Heparin ordered for DVT protocol and morphine for pain. Dr. Pinto advises to follow heparin protocol but do not administer heparin bolus. VSS. Will continue to monitor.
[2020-06-01 22:02] LABS: CALCIUM 7.7 mg/dL (8.5-10.1); CREATININE 0.9 mg/dL (0.6-1.0); GFR 62.1; POTASSIUM 3.9 mmol/L (3.5-5.1)
[2020-06-01] MEDS: IV NORMAL SALINE 1000ML BAG 1,000 ML IV SCH (22:52)
--- NOTE | 2020-06-01 23:31 | OP ---
DATE OF SURGERY: 06/01/2020 VASCULAR SURGERY OPERATIVE REPORT SURGEON: Chong Cadet DO LUNCHROOM WORKER: Carmela Pinto MD PREOPERATIVE DIAGNOSES: 1. Acute mesenteric ischemia. 2. Active tobacco abuse. 3. Hypertension. 4. Hyperlipidemia. 5. Morbid obesity. 6. Coronary artery disease. POSTOPERATIVE DIAGNOSES: 1. Acute mesenteric ischemia. 2. Active tobacco abuse. 3. Hypertension. 4. Hyperlipidemia. 5. Morbid obesity. 6. Coronary artery disease. PROCEDURES: 1. Superior mesenteric artery Lexie thrombectomy. 2. Extensive lysis of adhesions for at least 45 minutes. 3. Exploratory laparotomy. ANESTHESIA: General. SPECIMENS: None. ESTIMATED BLOOD LOSS: 175 mL. COMPLICATIONS: None. PREOPERATIVE INDICATIONS: The patient is a 69-year-old female who underwent an antegrade mesenteric bypass to her hepatic artery into the superior mesenteric artery in the past. Despite medical advice to stop smoking, the patient continued to smoke and, in fact, never even cut down on smoking. She was very reckless with her own medical care and this likely resulted in thrombosis of her bypass graft. She presented with acute mesenteric ischemic pains as well as an elevated leukocytosis and lactic acidosis. There was no evidence of bowel ischemia based on the CT scan, but it was felt that she would need urgent surgery for revascularization. My partner initially saw the patient, Dr. Pinto and then I met the patient in the preoperative area and discussed the procedure at length with her and she certainly understood all risks, benefits, and alternatives of the procedure. She was agreeable to proceed. OPERATIVE PROCEDURE: The patient was brought to the operating suite and after receiving invasive monitoring lines per anesthesia, the patient was prepped and draped in sterile fashion. Next, a timeout procedure was performed. It was confirmed that the patient did receive appropriate perioperative antibiotics and the correct operative site was marked and draped. Following this, a midline laparotomy incision was made through her previous incision and carried through the skin and subcutaneous tissue. Careful dissection through the fascia was performed and then I entered into the peritoneal cavity carefully. Following this, there were significant omental adhesions that took approximately 45 minutes to lyse just to gain access to the peritoneal cavity. I was able to carefully lyse all of the adhesions and gain proper entry into the peritoneal cavity. Next, an exploratory laparotomy was performed and her bowel was inspected and there is no evidence of lilian ischemia or necrosis of the small bowel or the large bowel. Following this, a self-retaining retractor was placed and the mesentery was located. Next, the mesentery was isolated over the patient's bypass graft. Following this, the mesentery was incised and careful dissection was carried down to the patient's superior mesenteric artery and her bypass graft was located. Bypass graft was dissected circumferentially and then the branches of the superior mesenteric artery were also individually dissected and controlled. Next, the patient was heparinized per weight-based protocol. Following appropriate circulation time, our vessels were controlled and a transverse graftotomy was performed onto the bypass graft. There was acute, but organized thrombus within the graft upon initial inspection and this was manually removed at the graftotomy. Next, a #4 Lexie catheter was passed approximately 20 cm and then withdrawn with a large amount of thrombus removed and return of brisk arterial blood flow. The Lexie catheter was passed several times until no further clots were visible. We also had catholic of excellent brisk antegrade inflow. Following this, a #3 Lexie catheter was passed down into the superior mesenteric artery and a small amount of thrombus was removed with good backbleeding from the vessel. The catheter was passed until there was no further clot removed. Following this, our graftotomy was closed using HS-7 Prolene suture. Prior to closing our graftotomy, we did backbleed and flush the vessels appropriately and then a graftotomy was completely closed and flow was restored. We had palpable pulse in the superior mesenteric artery after restoring flow and this was also confirmed with Doppler. The superior mesenteric artery did augment appropriately after compression of our graft. We had good hemostasis from the graftotomy. One repair suture was used for one of the mesenteric branches with excellent hemostasis. Following this, the wound was copiously irrigated with antibiotic-impregnated solution and we completed our counts and our lap, sponge, needle and instrument count was found to be correct. Following this, the Fibrillar was placed for raw surface bleeding surrounding the dissection area and then our mesentery was closed using 2-0 Vicryl suture. Next, we confirmed and positioned a nasogastric tube in the stomach and this was placed to low wall suction. Following this, the remainder of the peritoneal cavity was inspected and there was no further pathology noted within the peritoneal cavity. The omentum was pulled down and draped as much as possible after the adhesiolysis. Next, our fascia was closed using 0 looped PDS and the skin was closed after irrigating with skin steph. Sterile dressing was subsequently placed. The patient tolerated the procedure well and was transferred to the postanesthesia care unit in stable condition. CHONG CADET DO DR: Cecil JOB#: [id number] / [id number]
[2020-06-02] VITALS (25 sets, daily range): BP systolic 100–156; BP diastolic 54–76
[2020-06-02] MEDS: PIPERACILLIN/TAZOBACTAM 3.375 GM in IV NORMAL SALINE 50ML 50 ML IV SCH ×4 (00:45→17:52)
--- NOTE | 2020-06-02 00:46 | CONS ---
DATE OF CONSULTATION: 06/01/2020 CHIEF COMPLAINT: Abdominal pain. HISTORY OF PRESENT ILLNESS: The patient is a 69-year-old female with a history of severe mesenteric artery occlusive disease, who in 11/2019 underwent a supraceliac aortic to superior mesenteric artery and hepatic artery bypass graft. She presents with sudden onset of abdominal pain late yesterday evening. She states yesterday before this, she was feeling just fine, tolerating regular food and then suddenly she developed pain around the center of her abdomen, which radiated to all 4 quadrants last evening. She has been admitted to the hospital and started on IV fluids. She underwent a CT scan with IV contrast of her abdomen and pelvis, which shows complete thrombosis of her mesenteric artery bypass graft. There are no signs of bowel ischemia on this CAT scan. There is suggestion of possible left kidney infarct. Her white blood cell count is elevated at 30 and her Lactate is elevated at 2.4. Her abdominal pain continues. She has loss of appetite. She has nausea without any vomiting. She has noticed no blood in her stool. She has noticed no blood in her urine and has no discomfort on urination. She has been seen by Infectious Disease for her elevated white blood cell count and they do not feel that she has a urinary tract infection or pyelonephritis and feel it is likely more mesenteric ischemia. REVIEW OF SYSTEMS: A 10-point review of systems was performed, which is otherwise negative besides what is mentioned in history of present illness. PAST MEDICAL HISTORY: Includes: 1. Diabetes mellitus. 2. Hyperlipidemia. 3. Hypertension. 4. Transient ischemic attack. 5. Chronic obstructive pulmonary disease. 6. Severe atherosclerotic disease and severe occlusive mesenteric artery disease. PAST SURGICAL HISTORY: Includes: 1. Supraceliac aorta to superior mesenteric artery and hepatic artery bypass graft in 11/2019. 2. Thyroidectomy. 3. Left inguinal hernia repair. SOCIAL HISTORY: The patient has a long history of tobacco abuse and continues to smoke. Alcohol use none. FAMILY HISTORY: Significant for hyperlipidemia and diabetes. PHYSICAL EXAMINATION: GENERAL: The patient is awake and alert. She is in no apparent distress. She is afebrile. VITAL SIGNS: Her blood pressure is 133/57. HEART: Regular rate and rhythm. LUNGS: Have bilateral breath sounds to auscultation. ABDOMEN: Soft, nondistended. She does have tenderness with deep palpation in all 4 abdominal quadrants. EXTREMITIES: Her bilateral lower extremities are warm with palpable posterior tibial pulses and no tissue breakdown. NEUROLOGIC: She is awake and alert, oriented x 3, moving all 4 extremities with normal strength, normal speech and no gross neurologic deficits. ASSESSMENT AND PLAN: The patient is a 69-year-old female with a long history of severe mesenteric artery disease. She has a supraceliac aorta to superior mesenteric artery and hepatic artery bypass graft done in 11/2019. She has developed severe sudden onset of abdominal pain yesterday evening with an elevated white blood cell count of 30 and an elevated lactate at 2.4. This has slightly decreased to 1.9. CT scan with IV contrast shows that her mesenteric artery bypass is completely thrombosed. This is very concerning that her abdominal pain is secondary to acute mesenteric ischemia. CAT scan does not show any bowel ischemia at this point. The CAT scan was done overnight around 3 a.m. There are no other sources of her abdominal pain and elevated white blood cell count at this time. There is question of a possible left renal infarct; however, she has no left flank pain and Infectious Disease does not feel that she has pyelonephritis or urinary tract infection. This is very concerning that she may have mesenteric ischemia secondary to her graft thrombosis and I would recommend an explorative laparotomy with thrombectomy of her superior mesenteric artery bypass graft and possible new bypass graft if this cannot be reopened. She will be taken to the operating room today for exploration and repair. YANG MENDEZ MD DR: YOVANA/heriberto JOB#: [id number] / [id number]
[2020-06-02] MEDS: MORPHINE SULFATE 2 MG/ML VIAL. IV PRN ×3 (04:46→15:05)
[2020-06-02 05:35] LABS: BASO # 0.1 x10^3/uL (0.0-0.2); BASO % 0 % (0-3); EOS % 0 % (0-3); HEMOGLOBIN 9.9 g/dL (12.0-15.5); LYMPH # 2.5 x10^3/uL (1.0-4.8); LYMPH % 9 % (24-48); MEAN CORPUSCULAR HEMOGLOBIN 23 pg (25-35); MEAN CORPUSCULAR HGB CONC 31 g/dL (31-37); MEAN CORPUSCULAR VOLUME 74 fL (79-100); MONO # 1.5 x10^3/uL (0.0-1.1); MONO % 5 % (0-9); NEUT % 85 % (31-73); PLATELET COUNT 334 x10^3/uL (140-400); RED BLOOD COUNT 4.34 x10^6/uL (3.50-5.40); RED CELL DISTRIBUTION WIDTH 27.3 % (11.5-14.5); WHITE BLOOD COUNT 27.1 x10^3/uL (4.0-11.0)
[2020-06-02] MEDS: IV NORMAL SALINE 1000ML BAG 1,000 ML IV SCH ×2 (05:44→15:30)
[2020-06-02 06:19] LABS: ALBUMIN 2.7 g/dL (3.4-5.0); ALBUMIN/GLOBULIN RATIO 0.9 (1.0-1.7); CALCIUM 7.7 mg/dL (8.5-10.1); CREATININE 0.9 mg/dL (0.6-1.0); GFR 62.1; POTASSIUM 4.1 mmol/L (3.5-5.1); TOTAL PROTEIN 5.8 g/dL (6.4-8.2)
--- NOTE | 2020-06-02 08:42 | PDOC ---
Infectious Disease Note Subjective Subjective s/p expl lap, REX and mesenteric artery thrombectomy. Pain controlled Denies N/V. No flatus Denies SOA ROS ROS as mentioned above Vital Sign Vital Signs Vital Signs Date Time Temp Pulse Resp B/P (MAP) Pulse Ox O2 Delivery O2 Flow Rate FiO2 06/02/20 08:00 97.7 95 12 154/55 (88) 94 Nasal Cannula 2.0 97.7 Physical Exam PHYSICAL EXAM GENERAL: Propped up in bed, awake, in NAD HENT: BRIDGER, Oropharynx pink dry. No lesions. + NGT NECK: Supple LUNGS: CTAB, nonlabored HEART: S1 and S2, irregular ABDOMEN: Some distention, BS quiet, soft, tender. Dressing dry : [place] in place EXT: No gross edema or cyanosis SKIN: without rash TREATMENT MANAGER: Alert, oriented x 3 RIJ (06/01) without signs of complications Labs Lab Laboratory Tests Test 06/01/20 09:55 06/01/20 16:15 06/01/20 21:09 06/01/20 21:45 Lactic Acid Level 1.9 mmol/L (0.4-2.0) SARS-CoV-2 Antigen (Rapid) Negative (NEGATIVE) Glucose (Fingerstick) 168 mg/dL (70-99) White Blood Count 26.4 x10^3/uL (4.0-11.0) Red Blood Count 4.54 x10^6/uL (3.50-5.40) Hemoglobin 10.4 g/dL (12.0-15.5) Hematocrit 33.5 % (36.0-47.0) Mean Corpuscular Volume 74 fL (79-100) Mean Corpuscular Hemoglobin 23 pg (25-35) Mean Corpuscular Hemoglobin Concent 31 g/dL (31-37) Red Cell Distribution Width 27.4 % (11.5-14.5) Platelet Count 371 x10^3/uL (140-400) Sodium Level 136 mmol/L (136-145) Potassium Level 3.9 mmol/L (3.5-5.1) Chloride Level 101 mmol/L (98-107) Carbon Dioxide Level 26 mmol/L (21-32) Anion Gap 9 (6-14) Blood Urea Nitrogen 26 mg/dL (7-20) Creatinine 0.9 mg/dL (0.6-1.0) Estimated GFR (Cockcroft-Gault) 62.1 Glucose Level 169 mg/dL (70-99) Calcium Level 7.7 mg/dL (8.5-10.1) Test 06/02/20 04:45 White Blood Count 27.1 x10^3/uL (4.0-11.0) Red Blood Count 4.34 x10^6/uL (3.50-5.40) Hemoglobin 9.9 g/dL (12.0-15.5) Hematocrit 32.0 % (36.0-47.0) Mean Corpuscular Volume 74 fL (79-100) Mean Corpuscular Hemoglobin 23 pg (25-35) Mean Corpuscular Hemoglobin Concent 31 g/dL (31-37) Red Cell Distribution Width 27.3 % (11.5-14.5) Platelet Count 334 x10^3/uL (140-400) Neutrophils (%) (Auto) 85 % (31-73) Lymphocytes (%) (Auto) 9 % (24-48) Monocytes (%) (Auto) 5 % (0-9) Eosinophils (%) (Auto) 0 % (0-3) Basophils (%) (Auto) 0 % (0-3) Neutrophils # (Auto) 23.0 x10^3/uL (1.8-7.7) Lymphocytes # (Auto) 2.5 x10^3/uL (1.0-4.8) Monocytes # (Auto) 1.5 x10^3/uL (0.0-1.1) Eosinophils # (Auto) 0.0 x10^3/uL (0.0-0.7) Basophils # (Auto) 0.1 x10^3/uL (0.0-0.2) Heparin Anti-Xa Act, Unfractionated 0.11 IU/mL (0.30-0.70) Sodium Level 138 mmol/L (136-145) Potassium Level 4.1 mmol/L (3.5-5.1) Chloride Level 103 mmol/L (98-107) Carbon Dioxide Level 24 mmol/L (21-32) Anion Gap 11 (6-14) Blood Urea Nitrogen 24 mg/dL (7-20) Creatinine 0.9 mg/dL (0.6-1.0) Estimated GFR (Cockcroft-Gault) 62.1 BUN/Creatinine Ratio 27 (6-20) Glucose Level 148 mg/dL (70-99) Calcium Level 7.7 mg/dL (8.5-10.1) Magnesium Level 1.8 mg/dL (1.8-2.4) Total Bilirubin 1.0 mg/dL (0.2-1.0) Aspartate Amino Transf (AST/SGOT) 54 U/L (15-37) Alanine Aminotransferase (ALT/SGPT) 69 U/L (14-59) Alkaline Phosphatase 102 U/L (46-116) Troponin I Quantitative 0.090 ng/mL (0.000-0.055) XI-Kyi-R-Type Natriuretic Peptide 60834 pg/mL (0-124) Total Protein 5.8 g/dL (6.4-8.2) Albumin 2.7 g/dL (3.4-5.0) Albumin/Globulin Ratio 0.9 (1.0-1.7) CXR Impression: 1. Interval placement right IJ central line and enteric tube. 2. Diffuse interstitial thickening with increased patchy right mid and basilar opacity. 3. Small bilateral pleural effusions, increased on the left. Micro Microbiology 06/01/20 Blood Culture - Preliminary, Resulted NO GROWTH AFTER 1 DAY Objective Assessment Abdominal pain, nausea, and vomiting, most likely secondary to mesenteric ischemia; do not believe the patient has pyelonephritis or any urinary tract infection. 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 s/p expl lap, REX and superior mesenteric artery Lexie thrombectomy on, 06/01. Leukocytosis is reactive, in part steroids and surgery Tobaccoism Chronic obstructive pulmonary disease. Hypertension. Hyperlipidemia. Diabetes. Plan Plan of Care Zosyn for now Monitor WBC/temp BC neg to date Maintain hydration Local wound care as directed. Maintain aspiration precautions Smoking cessation f/u CT chest D/w nursing Critically ill Attending Co-Sign The patient was seen and interviewed as well as examined at the bedside. The chart was reviewed. The case was discussed. Agree with the plan of care. BRANT TAI APRN Jun 02, 2020 08:42 AMANDA RAPHAEL MD Jun 02, 2020 10:33
[2020-06-02] MEDS: IPRATRPIUM/ALBUTEROL 0.5/2.5MG 3 ML NEBU. NEB SCH ×5 (08:56→22:00)
[2020-06-02] MEDS: BUDESONIDE 0.5 MG/2 ML NEBU. NEB SCH ×3 (09:01→19:40)
--- NOTE | 2020-06-02 09:10 | PDOC ---
Provider Note Provider Note AF VSS awake and alert abdomen soft, nondistended, mild tenderness, dressing dry lower extremities warm with no edema neuro exam intact A/P POD#1 superior mesenteric artery thrombectomy for acute occlusion, no signs of bowel ischemia - aspirin and heparin drip, will need full anticoagulation - d/c NG tube - ice chips only today - Hgb improved with transfusion - out of bed to chair, may ambulate, PT/OT consult - antibiotics per ID Justicifation of Admission Dx: Justifications for Admission: Justification of Admission Dx: Yes Sepsis: Infection YANG MENDEZ MD Jun 02, 2020 09:10
[2020-06-02] MEDS: PANTOPRAZOLE 40 MG TABLET.DR. PO SCH (09:25)
[2020-06-02] MEDS: ALLOPURINOL 300 MG TABLET. PO SCH (09:25)
[2020-06-02] MEDS: ASPIRIN ENTERIC COATED 325 MG TABLET.DR. PO SCH (09:25)
[2020-06-02] MEDS: LACTOBACILLUS RHAMNOSUS GG 1 CAPSULE. PO SCH ×2 (09:25→21:00)
[2020-06-02] MEDS: FERROUS SULFATE 325 MG TABLET. PO SCH ×2 (09:25→16:46)
[2020-06-02] MEDS: DULoxetine HCL 30 MG CAPSULE.DR PO SCH (09:28)
--- NOTE | 2020-06-02 09:39 | PDOC ---
Provider Note Provider Note post op thrombectomy in icu- labs ok, vss, no temp- remains anticoagulated re same, ciont same care Justicifation of Admission Dx: Justifications for Admission: Justification of Admission Dx: Yes Sepsis: Infection LAZARA POLLACK MD Jun 02, 2020 09:39
--- NOTE | 2020-06-02 11:01 | PDOC ---
Provider Note Provider Note pulm cc consult dictated Justicifation of Admission Dx: Justifications for Admission: Justification of Admission Dx: Yes Sepsis: Infection ZOILA TAPIA MD Jun 02, 2020 11:01
--- NOTE | 2020-06-02 12:24 | CONS ---
please disregard this MTDD
[2020-06-02] MEDS: POTASSIUM CHLORIDE 20 MEQ TABLET.ER. PO SCH (12:33)
--- NOTE | 2020-06-02 12:44 | PDOC2 ---
CONSULT Date of Consult Date of Consult DATE: 06/02/20 TIME: 12:44 Source Source: Chart review History of Present Illness Reason for Visit: 69 year old female who was watching the [employer] game on TV when she developed acute onset of periumbilical abdominal pain and nausea. She is known to be a smoker. She is not aware of known kidney problems she has had multiple episodes of emesis. She had a partial colectomy for precancerous polyp. She did develop recent anemia and she received 2 units of blood for anemia 05/30 and was discharged Per the ER reports. On presentation to the ER she underwent a CT scan of her abdomen and pelvis which besides other findings showed: " Interval development of multifocal regions of low density along the left renal cortex. Given the patient's severe vascular disease with regions of stenosis or occlusion the top differential consideration would be left renal infarct. Also correlate with infectious symptoms to ensure that there is not a superimposed pyelonephritis since infection can have a similar appearance to renal infarct." She was diagnosed with Acute mesenteric ischemia : In the setting of risk factors: Active tobacco abuse, Hypertension, Hyperlipidemia. possible obesity and known Coronary artery disease. It appears that she has undergone previous antegrade mesenteric bypass to her hepatic artery into the superior mesenteric artery in the past. This time she underwent Superior mesenteric artery Lexie thrombectomy, Extensive lysis of adhesions for at least 45 minutes and Exploratory laparotomy by Dr. Edward yesterday and is now in the ICU. She is feeling much better. She is sitting up in her chair. Urine output has been brisk. She is on pain medications and denies any obvious flank pain per se. I have attempted to review her electronic op report and I do not see any mention of any obvious abnormalities of the renal artery mentioned Past Medical History Cardiovascular: HTN, Hyperlipidemia, Other Pulmonary: COPD GI: GI bleed, Peptic Ulcer disease Endocrine: Diabetes Past Surgical History Past Surgical History: Hernia Repair, Other Family History Family History: No Significant, Hypertension Social History <1 pack per day ALCOHOL: occassional Drugs: None Lives: with Family Current Problem List Problem List Problems Medical Problems: (1) Acute PN (pyelonephritis) Status: Acute (2) Periumbilical pain Status: Acute Current Medications Current Medications Current Medications Sodium Chloride 500 ml @ 500 mls/hr 1X ONCE IV Last administered on 06/01/20at 04:25; Start 06/01/20 at 04:15; Stop 06/01/20 at 05:14; Status DC Ondansetron HCl (Zofran) 4 mg 1X ONCE IVP Last administered on 06/01/20at 04:25; Start 06/01/20 at 04:15; Stop 06/01/20 at 04:16; Status DC Hydromorphone HCl (Dilaudid) 0.5 mg 1X ONCE IV Last administered on 06/01/20at 04:26; Start 06/01/20 at 04:15; Stop 06/01/20 at 04:16; Status DC Iohexol (Omnipaque 300 Mg/ml) 75 ml 1X ONCE IV Last administered on 06/01/20at 05:14; Start 06/01/20 at 05:00; Stop 06/01/20 at 05:01; Status DC Info (CONTRAST GIVEN -- Rx MONITORING) 1 each PRN DAILY PRN MC SEE COMMENTS; Start 06/01/20 at 05:00; Stop 06/03/20 at 04:59 Ceftriaxone Sodium (Rocephin) 2 gm 1X ONCE IVP Last administered on 06/01/20at 07:23; Start 06/01/20 at 06:45; Stop 06/01/20 at 06:46; Status DC Fentanyl Citrate (Fentanyl 2ml Vial) 50 mcg PRN Q1HR PRN IV PAIN Last administered on 06/01/20at 13:32; Start 06/01/20 at 06:45; Stop 06/02/20 at 06:44; Status DC Sodium Chloride 1,000 ml @ 125 mls/hr Q8H IV Last administered on 06/01/20at 07:22; Start 06/01/20 at 06:45; Stop 06/01/20 at 22:03; Status DC Piperacillin Sod/ Tazobactam Sod 3.375 gm/Sodium Chloride 50 ml @ 100 mls/hr Q6HRS IV Last administered on 06/02/20at 11:30; Start 06/01/20 at 12:30 Sodium Chloride (Normal Saline Flush) 3 ml QSHIFT PRN IV AFTER MEDS AND BLOOD DRAWS; Start 06/01/20 at 12:30 Sodium Chloride 1,000 ml @ 85 mls/hr [id number] IV ; Start 06/01/20 at 12:21; Stop 06/01/20 at 12:37; Status DC Ondansetron HCl (Zofran) 4 mg PRN Q4HRS PRN IV NAUSEA/VOMITING; Start 06/01/20 at 12:30 Acetaminophen (Tylenol) 650 mg PRN Q4HRS PRN PO TEMP OVER 100.4F; Start 06/01/20 at 12:30 Al Hydroxide/Mg Hydroxide (Mylanta Plus Xs) 30 ml PRN DAILY PRN PO HEARTBURN / GAS; Start 06/01/20 at 12:30 Clonidine HCl (Catapres) 0.1 mg PRN Q6HRS PRN PO SBP>160 OR DBP>90; Start 06/01/20 at 12:30 Sodium Monofluorophosphate (Fleet Adult) 133 ml PRN DAILY PRN IA CONSTIPATION; Start 06/01/20 at 12:30 Docusate Sodium (Colace) 100 mg PRN BID PRN PO HARD STOOLS; Start 06/01/20 at 12:30 Albuterol/ Ipratropium (Duoneb) 3 ml Q4HRS W/A NEB Last administered on 06/02/20at 11:53; Start 06/01/20 at 14:00 Guaifenesin (Robitussin) 200 mg PRN Q4HRS PRN PO COUGH; Start 06/01/20 at 12:30 Enoxaparin Sodium (Lovenox 40mg Syringe) 40 mg Q24H SQ ; Start 06/01/20 at 12:30; Stop 06/01/20 at 13:03; Status DC Allopurinol (Zyloprim) 300 mg DAILY PO Last administered on 06/02/20at 09:25; Start 06/01/20 at 13:00 Aspirin (Ecotrin) 325 mg DAILYWBKFT PO Last administered on 06/02/20at 09:25; Start 06/01/20 at 13:00 Ferrous Sulfate (Feosol) 325 mg BIDWMEALS PO Last administered on 06/02/20 09:25; Start 06/01/20 at 17:00 Duloxetine HCl (Cymbalta) 60 mg DAILY PO Last administered on 06/02/20at 09:28; Start 06/01/20 at 13:00 Pantoprazole Sodium (Protonix) 40 mg DAILYAC PO Last administered on 06/02/20at 09:25; Start 06/01/20 at 16:30 Potassium Chloride (Klor-Con) 20 meq DAILY@1300 PO Last administered on 06/02/20at 12:33; Start 06/01/20 at 13:00 Atorvastatin Calcium (Lipitor) 5 mg QHS PO ; Start 06/01/20 at 21:00 Enoxaparin Sodium (Lovenox 80mg Syringe) 80 mg Q12HR SQ ; Start 06/01/20 at 13:15; Stop 06/01/20 at 20:18; Status DC Lactobacillus Rhamnosus (Culturelle) 1 cap BID PO Last administered on 06/02/20at 09:25; Start 06/01/20 at 21:00 Sevoflurane (Ultane) 90 ml STK-MED ONCE IH ; Start 06/01/20 at 16:50; Stop 06/01/20 at 16:51; Status DC Succinylcholine Chloride (Anectine) 200 mg STK-MED ONCE .ROUTE ; Start 06/01/20 at 16:51; Stop 06/01/20 at 16:51; Status DC Neostigmine [place] (Neostigmine Methylsulfate) 5 mg STK-MED ONCE .ROUTE ; Start 06/01/20 at 16:51; Stop 06/01/20 at 16:51; Status DC Rocuronium [place] (Zemuron) 50 mg STK-MED ONCE .ROUTE ; Start 06/01/20 at 16:51; Stop 06/01/20 at 16:51; Status DC Fentanyl Citrate (Fentanyl 2ml Vial) 100 mcg STK-MED ONCE .ROUTE ; Start 06/01/20 at 16:51; Stop 06/01/20 at 16:51; Status DC Midazolam HCl (Versed) 2 mg STK-MED ONCE .ROUTE ; Start 06/01/20 at 16:51; Stop 06/01/20 at 16:52; Status DC Glycopyrrolate (Robinul) 1 mg STK-MED ONCE .ROUTE ; Start 06/01/20 at 16:51; Sto p 06/01/20 at 16:52; Status DC Heparin Sodium (Porcine) (Heparin Sodium) 10,000 unit STK-MED ONCE .ROUTE ; Start 06/01/20 at 16:52; Stop 06/01/20 at 16:52; Status DC Dexamethasone Sodium Phosphate (Decadron) 4 mg STK-MED ONCE .ROUTE ; Start 06/01/20 at 16:52; Stop 06/01/20 at 16:52; Status DC Dexamethasone Sodium Phosphate (Decadron) 4 mg STK-MED ONCE .ROUTE ; Start 06/01/20 at 16:52; Stop 06/01/20 at 16:52; Status DC Ondansetron HCl (Zofran) 4 mg STK-MED ONCE .ROUTE ; Start 06/01/20 at 16:52; Stop 06/01/20 at 16:52; Status DC Lidocaine HCl (Lidocaine Pf 2% Vial) 5 ml STK-MED ONCE .ROUTE ; Start 06/01/20 at 16:52; Stop 06/01/20 at 16:52; Status DC Propofol (Diprivan) 200 mg STK-MED ONCE IV ; Start 06/01/20 at 16:52; Stop 06/01/20 at 16:53; Status DC Phenylephrine HCl (PHENYLEPHRINE in 0.9% NACL PF) 1 mg STK-MED ONCE IV ; Start 06/01/20 at 16:54; Stop 06/01/20 at 16:55; Status DC Cefazolin Sodium 1 gm/Sodium Chloride 500 ml @ 500 mls/hr 1X ONCE IRR Last administered on 06/01/20at 18:22; Start 06/01/20 at 17:30; Stop 06/01/20 at 18:29; Status DC Heparin Sodium (Porcine) 5000 unit/Sodium Chloride 505 ml @ 505 mls/hr 1X ONCE IRR Last administered on 06/01/20at 18:22; Start 06/01/20 at 17:30; Stop 06/01/20 at 18:29; Status DC Lidocaine HCl (Xylocaine-Mpf 1% 2ml Vial) 2 ml STK-MED ONCE .ROUTE ; Start 06/01/20 at 17:34; Stop 06/01/20 at 17:35; Status DC Heparin Sodium (Porcine) (Heparin Sodium) 10,000 unit STK-MED ONCE .ROUTE ; Start 06/01/20 at 17:45; Stop 06/01/20 at 17:45; Status DC Cellulose (Surgicel Fibrillar 1x2) 1 each STK-MED ONCE .ROUTE Last administered on 06/01/20at 18:22; Start 06/01/20 at 17:45; Stop 06/01/20 at 17:45; Status DC Fentanyl Citrate (Fentanyl 2ml Vial) 100 mcg STK-MED ONCE .ROUTE ; Start 06/01/20 at 18:42; Stop 06/01/20 at 18:43; Status DC Rocuronium [place] (Zemuron) 50 mg STK-MED ONCE .ROUTE ; Start 06/01/20 at 19:11; Stop 06/01/20 at 19:11; Status DC Fentanyl Citrate (Fentanyl 2ml Vial) 100 mcg STK-MED ONCE .ROUTE ; Start 06/01/20 at 19:24; Stop 06/01/20 at 19:25; Status DC Ondansetron HCl (Zofran) 4 mg PRN Q6HRS PRN IV NAUSEA/VOMITING; Start 06/01/20 at 19:45; Stop 06/02/20 at 09:02; Status DC Fentanyl Citrate (Fentanyl 2ml Vial) 25 mcg PRN Q5MIN PRN IV MILD PAIN 1-3; Start 06/01/20 at 19:45; Stop 06/02/20 at 09:02; Status DC Fentanyl Citrate (Fentanyl 2ml Vial) 50 mcg PRN Q5MIN PRN IV MODERATE TO SEVERE PAIN Last administered on 06/01/20at 21:46; Start 06/01/20 at 19:45; Stop 06/02/20 at 09:02; Status DC Morphine Sulfate (Morphine Sulfate) 1 mg PRN Q10MIN PRN IV SEVERE PAIN 7-10 Last administered on 06/01/20at 22:32; Start 06/01/20 at 19:45; Stop 06/02/20 at 09:02; Status DC Ringer's Solution 1,000 ml @ 30 mls/hr Q24H IV ; Start 06/01/20 at 19:38; Stop 06/01/20 at 22:04; Status DC Lidocaine HCl (Xylocaine-Mpf 1% 2ml Vial) 2 ml PRN 1X PRN ID PRIOR TO IV START; Start 06/01/20 at 19:45; Stop 06/02/20 at 09:02; Status DC Hydromorphone HCl (Dilaudid) 0.5 mg PRN Q10MIN PRN IV SEV PAIN, Second choice; Start 06/01/20 at 19:45; Stop 06/02/20 at 09:02; Status DC Prochlorperazine Edisylate (Compazine) 5 mg PACU PRN PRN IV NAUSEA, MRX1; Start 06/01/20 at 19:45; Stop 06/02/20 at 09:02; Status DC Heparin Sodium/ Dextrose 250 ml @ 12.144 mls/ hr CONT PRN IV PER PROTOCOL Last administered on 06/01/20at 21:44; Start 06/01/20 at 21:00 Heparin Sodium (Porcine) (Heparin Sodium) 2,300 unit PRN Q6HRS PRN IV FOR UFH LEVEL LESS THAN 0.2; Start 06/01/20 at 20:30; Stop 06/02/20 at 06:44; Status DC Heparin Sodium (Porcine) (Heparin Sodium) 1,150 unit PRN Q6HRS PRN IV FOR UFH LEVEL 0.2 - 0.29; Start 06/01/20 at 20:30; Stop 06/02/20 at 06:44; Status DC Info (Anti-Coagulation Monitoring By Pharmacy) 1 each PRN DAILY PRN MC SEE COMMENTS; Start 06/01/20 at 20:30 Sodium Chloride 1,000 ml @ 125 mls/hr CONT IV ; Start 06/01/20 at 22:00; Status UNV Sodium Chloride 1,000 ml @ 100 mls/hr Q10H IV Last administered on 06/02/20at 05:44; Start 06/01/20 at 22:00 Morphine Sulfate (Morphine Sulfate) 2 mg PRN Q2HR PRN IV PAIN Last administered on 06/02/20at 11:46; Start 06/02/20 at 00:00 Budesonide (Pulmicort) 0.5 mg RTBID NEB Last administered on 06/02/20at 09:25; Start 06/02/20 at 08:00 Active Scripts Active Feosol (Ferrous Sulfate) 325 Mg Tablet 325 Mg PO BID 90 Days Potassium Chloride 20 Meq Tablet.er 20 Meq PO AFTRNOON 30 Days Aspirin Ec (Aspirin) 325 Mg Tablet. 325 Mg PO DAILYWBKFT 90 Days Reported Protonix (Pantoprazole Sodium) 20 Mg Tablet. 40 Mg PO DAILY Actos (Pioglitazone Hcl) 30 Mg Tablet 30 Mg PO DAILY Pravastatin Sodium 20 Mg Tablet 20 Mg PO QHS Allopurinol 100 Mg Tablet 300 Mg PO DAILY Cymbalta (Duloxetine Hcl) 60 Mg Capsule. 60 Mg PO DAILY Allergies Allergies: Coded Allergies: shrimp (Verified Allergy, Intermediate, Rash, 12/12/19) ROS Review of System 14 point review of systems are negative other than as reviewed in HPI Physical Exam Physical Exam General Appearance: Awake Alert Oriented x 3 In no Distress Eyes: VIsion Unchanged Conjunctiva Normal EN: No EN Drainage Mucous Memb. moist Neck: no JVD no JVP Supple no Thyromegaly CVS: S1 S2 no Murmur No Gallop No Rub no Edema Resp: Rare basal Rales no Rhonchi no Acc. Muscle use GI: BAS +ve NO Bruit +Tender (post-op) Non Distended : no CVA tenderness; no Suprapubic Tenderness SKIN: no visibel Rashes Breast Exam deferred Mu.Sk: Adequate ROM no Muscle Atrophy Heme: Unable to palpate Obvious LAD no Splenomegaly NEURO: Good Strength and Tone Cranial Nerves II - XII grossly intact Psych: not Depressed no Active hallucination Vital Signs Vital Signs Date Time Temp Pulse Resp B/P (MAP) Pulse Ox O2 Delivery O2 Flow Rate FiO2 06/02/20 12:16 16 94 3.0 06/02/20 12:00 100.1 93 123/62 (82) Nasal Cannula 100.1 Assessment & Plan Possible renal infarction as noted on CT scan of the abdomen and pelvis: This may very well be atherosclerotic in nature. She would merit some form of angiog natalee in the near future. She is asymptomatic at this time. She may need cardiac evaluation to rule out thromboembolic phenomenon also. Despite the potential for renal infarction she has not demonstrated any compromise of her kidney function per se as yet UA is also clear which pretty much rules out pyelonephritis as mentioned in differential in the CT scan. The loss of obvious cellular elements in the UA makes acute renal infarction less likely. Arterial thromboembolic phenomenon is often been associated with hypercoagulable states and consideration to hematology oncology evaluation to rule out the same should be considered. Will defer management of cardiovascular risk factor management to Dr. Joaquin which would include smoking cessation We will follow for the next day or 2 along with you Labs Labs Laboratory Tests Test 06/01/20 03:30 06/01/20 05:50 06/01/20 07:05 06/01/20 09:55 White Blood Count 30.3 x10^3/uL (4.0-11.0) Red Blood Count 3.72 x10^6/uL (3.50-5.40) Hemoglobin 7.8 g/dL (12.0-15.5) Hematocrit 25.7 % (36.0-47.0) Mean Corpuscular Volume 69 fL (79-100) Mean Corpuscular Hemoglobin 21 pg (25-35) Mean Corpuscular Hemoglobin Concent 30 g/dL (31-37) Red Cell Distribution Width 25.5 % (11.5-14.5) Platelet Count 484 x10^3/uL (140-400) Neutrophils (%) (Auto) 78 % (31-73) Lymphocytes (%) (Auto) 15 % (24-48) Monocytes (%) (Auto) 6 % (0-9) Eosinophils (%) (Auto) 0 % (0-3) Basophils (%) (Auto) 0 % (0-3) Neutrophils # (Auto) 23.7 x10^3/uL (1.8-7.7) Lymphocytes # (Auto) 4.6 x10^3/uL (1.0-4.8) Monocytes # (Auto) 1.9 x10^3/uL (0.0-1.1) Eosinophils # (Auto) 0.0 x10^3/uL (0.0-0.7) Basophils # (Auto) 0.1 x10^3/uL (0.0-0.2) Sodium Level 140 mmol/L (136-145) Potassium Level 3.6 mmol/L (3.5-5.1) Chloride Level 101 mmol/L (98-107) Carbon Dioxide Level 27 mmol/L (21-32) Anion Gap 12 (6-14) Blood Urea Nitrogen 42 mg/dL (7-20) Creatinine 0.9 mg/dL (0.6-1.0) Estimated GFR (Cockcroft-Gault) 62.1 BUN/Creatinine Ratio 47 (6-20) Glucose Level 165 mg/dL (70-99) Calcium Level 8.1 mg/dL (8.5-10.1) Total Bilirubin 0.6 mg/dL (0.2-1.0) Aspartate Amino Transf (AST/SGOT) 25 U/L (15-37) Alanine Aminotransferase (ALT/SGPT) 36 U/L (14-59) Alkaline Phosphatase 123 U/L (46-116) Total Protein 6.3 g/dL (6.4-8.2) Albumin 3.1 g/dL (3.4-5.0) Albumin/Globulin Ratio 1.0 (1.0-1.7) Lipase 71 U/L (73-393) Lactic Acid Level 2.4 mmol/L (0.4-2.0) 1.9 mmol/L (0.4-2.0) Urine Collection Type Unknown Urine Color Yellow Urine Clarity Clear Urine pH 7.0 (<5.0-8.0) Urine Specific [place] 1.025 (1.000-1.030) Urine Protein Negative mg/dL (NEG-TRACE) Urine Glucose (UA) Negative mg/dL (NEG) Urine Ketones (Stick) Negative mg/dL (NEG) Urine Blood Negative (NEG) Urine Nitrite Negative (NEG) Urine Bilirubin Negative (NEG) Urine Urobilinogen Dipstick 0.2 mg/dL (0.2 mg/dL) Urine Leukocyte Esterase Negative (NEG) Urine RBC Occ /HPF (0-2) Urine WBC 0 /HPF (0-4) Urine Squamous Epithelial Cells Occ /LPF Urine Bacteria 0 /HPF (0-FEW) Test 06/01/20 16:15 06/01/20 21:09 06/01/20 21:45 06/02/20 04:45 Coronavirus (COVID-19)(PCR) Negative (NEGATIVE) SARS-CoV-2 Antigen (Rapid) Negative (NEGATIVE) Glucose (Fingerstick) 168 mg/dL (70-99) White Blood Count 26.4 x10^3/uL (4.0-11.0) 27.1 x10^3/uL (4.0-11.0) Red Blood Count 4.54 x10^6/uL (3.50-5.40) 4.34 x10^6/uL (3.50-5.40) Hemoglobin 10.4 g/dL (12.0-15.5) 9.9 g/dL (12.0-15.5) Hematocrit 33.5 % (36.0-47.0) 32.0 % (36.0-47.0) Mean Corpuscular Volume 74 fL (79-100) 74 fL (79-100) Mean Corpuscular Hemoglobin 23 pg (25-35) 23 pg (25-35) Mean Corpuscular Hemoglobin Concent 31 g/dL (31-37) 31 g/dL (31-37) Red Cell Distribution Width 27.4 % (11.5-14.5) 27.3 % (11.5-14.5) Platelet Count 371 x10^3/uL (140-400) 334 x10^3/uL (140-400) Sodium Level 136 mmol/L (136-145) 138 mmol/L (136-145) Potassium Level 3.9 mmol/L (3.5-5.1) 4.1 mmol/L (3.5-5.1) Chloride Level 101 mmol/L (98-107) 103 mmol/L (98-107) Carbon Dioxide Level 26 mmol/L (21-32) 24 mmol/L (21-32) Anion Gap 9 (6-14) 11 (6-14) Blood Urea Nitrogen 26 mg/dL (7-20) 24 mg/dL (7-20) Creatinine 0.9 mg/dL (0.6-1.0) 0.9 mg/dL (0.6-1.0) Estimated GFR (Cockcroft-Gault) 62.1 62.1 Glucose Level 169 mg/dL (70-99) 148 mg/dL (70-99) Calcium Level 7.7 mg/dL (8.5-10.1) 7.7 mg/dL (8.5-10.1) Neutrophils (%) (Auto) 85 % (31-73) Lymphocytes (%) (Auto) 9 % (24-48) Monocytes (%) (Auto) 5 % (0-9) Eosinophils (%) (Auto) 0 % (0-3) Basophils (%) (Auto) 0 % (0-3) Neutrophils # (Auto) 23.0 x10^3/uL (1.8-7.7) Lymphocytes # (Auto) 2.5 x10^3/uL (1.0-4.8) Monocytes # (Auto) 1.5 x10^3/uL (0.0-1.1) Eosinophils # (Auto) 0.0 x10^3/uL (0.0-0.7) Basophils # (Auto) 0.1 x10^3/uL (0.0-0.2) Heparin Anti-Xa Act, Unfractionated 0.11 IU/mL (0.30-0.70) BUN/Creatinine Ratio 27 (6-20) Magnesium Level 1.8 mg/dL (1.8-2.4) Total Bilirubin 1.0 mg/dL (0.2-1.0) Aspartate Amino Transf (AST/SGOT) 54 U/L (15-37) Alanine Aminotransferase (ALT/SGPT) 69 U/L (14-59) Alkaline Phosphatase 102 U/L (46-116) Troponin I Quantitative 0.090 ng/mL (0.000-0.055) UE-[id number]-[id number]-Type Natriuretic Peptide 00131 pg/mL (0-124) Total Protein 5.8 g/dL (6.4-8.2) Albumin 2.7 g/dL (3.4-5.0) Albumin/Globulin Ratio 0.9 (1.0-1.7) Test 06/02/20 12:00 Heparin Anti-Xa Act, Unfractionated 0.31 IU/mL (0.30-0.70) Laboratory Tests Test 06/01/20 16:15 06/01/20 21:09 06/01/20 21:45 06/02/20 04:45 Coronavirus (COVID-19)(PCR) Negative (NEGATIVE) SARS-CoV-2 Antigen (Rapid) Negative (NEGATIVE) Glucose (Fingerstick) 168 mg/dL (70-99) White Blood Count 26.4 x10^3/uL (4.0-11.0) 27.1 x10^3/uL (4.0-11.0) Red Blood Count 4.54 x10^6/uL (3.50-5.40) 4.34 x10^6/uL (3.50-5.40) Hemoglobin 10.4 g/dL (12.0-15.5) 9.9 g/dL (12.0-15.5) Hematocrit 33.5 % (36.0-47.0) 32.0 % (36.0-47.0) Mean Corpuscular Volume 74 fL (79-100) 74 fL (79-100) Mean Corpuscular Hemoglobin 23 pg (25-35) 23 pg (25-35) Mean Corpuscular Hemoglobin Concent 31 g/dL (31-37) 31 g/dL (31-37) Red Cell Distribution Width 27.4 % (11.5-14.5) 27.3 % (11.5-14.5) Platelet Count 371 x10^3/uL (140-400) 334 x10^3/uL (140-400) Sodium Level 136 mmol/L (136-145) 138 mmol/L (136-145) Potassium Level 3.9 mmol/L (3.5-5.1) 4.1 mmol/L (3.5-5.1) Chloride Level 101 mmol/L (98-107) 103 mmol/L (98-107) Carbon Dioxide Level 26 mmol/L (21-32) 24 mmol/L (21-32) Anion Gap 9 (6-14) 11 (6-14) Blood Urea Nitrogen 26 mg/dL (7-20) 24 mg/dL (7-20) Creatinine 0.9 mg/dL (0.6-1.0) 0.9 mg/dL (0.6-1.0) Estimated GFR (Cockcroft-Gault) 62.1 62.1 Glucose Level 169 mg/dL (70-99) 148 mg/dL (70-99) Calcium Level 7.7 mg/dL (8.5-10.1) 7.7 mg/dL (8.5-10.1) Neutrophils (%) (Auto) 85 % (31-73) Lymphocytes (%) (Auto) 9 % (24-48) Monocytes (%) (Auto) 5 % (0-9) Eosinophils (%) (Auto) 0 % (0-3) Basophils (%) (Auto) 0 % (0-3) Neutrophils # (Auto) 23.0 x10^3/uL (1.8-7.7) Lymphocytes # (Auto) 2.5 x10^3/uL (1.0-4.8) Monocytes # (Auto) 1.5 x10^3/uL (0.0-1.1) Eosinophils # (Auto) 0.0 x10^3/uL (0.0-0.7) Basophils # (Auto) 0.1 x10^3/uL (0.0-0.2) Heparin Anti-Xa Act, Unfractionated 0.11 IU/mL (0.30-0.70) BUN/Creatinine Ratio 27 (6-20) Magnesium Level 1.8 mg/dL (1.8-2.4) Total Bilirubin 1.0 mg/dL (0.2-1.0) Aspartate Amino Transf (AST/SGOT) 54 U/L (15-37) Alanine Aminotransferase (ALT/SGPT) 69 U/L (14-59) Alkaline Phosphatase 102 U/L (46-116) Troponin I Quantitative 0.090 ng/mL (0.000-0.055) II-Uyp-V-Type Natriuretic Peptide 93368 pg/mL (0-124) Total Protein 5.8 g/dL (6.4-8.2) Albumin 2.7 g/dL (3.4-5.0) Albumin/Globulin Ratio 0.9 (1.0-1.7) Test 06/02/20 12:00 Heparin Anti-Xa Act, Unfractionated 0.31 IU/mL (0.30-0.70) Review All relevant outside records, renal labs, imaging studies, telemetry/EKG's were reviewed. Images Images * Interval development of multifocal regions of low density along the left renal cortex. Given the patient's severe vascular disease with regions of stenosis or occlusion the top differential consideration would be left renal infarct. Also correlate with infectious symptoms to ensure that there is not a superimposed pyelonephritis since infection can have a similar appearance to renal infarct. * Right greater than left pleural effusion with adjacent airspace consolidation. * Severe vascular disease as described above is again seen. KWADWO RAPHAEL MD Jun 02, 2020 12:44
--- NOTE | 2020-06-02 14:29 | CONS ---
DATE OF CONSULTATION: 06/02/2020 I was asked to see this 69-year-old lady for pneumonia. HISTORY OF PRESENT ILLNESS: The patient has history of 73-vacp-[id number] smoking, continues to smoke about a pack per day. She has chronic obstructive pulmonary disease. She is not on oxygen at home. She presented to the Emergency Room for acute abdominal pain and nausea. 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 There were no sign of ischemia. She underwent exploratory laparotomy yesterday evening. She underwent superior mesenteric artery Lexie thrombectomy, extensive lysis of adhesions. She is now in Intensive Care Unit. She is on oxygen 2 liters per minute via nasal cannula. She does have shortness of breath, but is not worse than usual. She has cough with some sputum production which is not worse than usual. She denies fever, chills before her abdominal pain. PAST MEDICAL HISTORY: Chronic obstructive pulmonary disease, hypertension, hyperlipidemia, transient ischemic attack, severe atherosclerotic disease, severe occlusive mesenteric artery disease, status post supraceliac aortic to superior mesenteric artery and hepatic artery bypass graft in 11/2019, diabetes mellitus, 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, left inguinal hernia repair. SOCIAL HISTORY: History of 68-[id number]-[id number] smoking, continues to smoke about 1 pack per day. FAMILY HISTORY: Her father had lung cancer. ALLERGIES: SHRIMP. MEDICATIONS: Currently, she is on DuoNeb every 6 hours, heparin drip, Protonix, aspirin and iron sulfate. REVIEW OF SYSTEMS: As mentioned as above, other systems otherwise negative. PHYSICAL EXAMINATION: GENERAL: This is an overweight lady. VITAL SIGNS: Her O2 saturation on 2 liters of oxygen is 95%, respiratory rate 16, heart rate 87, blood pressure 153/56, temperature 99.1. HEENT: Normocephalic, atraumatic. Pupils are equal, round, reactive to light. There is shallow oropharynx. Nose is clear. NECK: There is no lymphadenopathy or thyromegaly. CARDIOVASCULAR: Regular rate and rhythm. PMI is nondisplaced. CHEST: Inspection is normal. LUNGS: There is dullness at the bases, a few end-expiratory wheezing. ABDOMEN: Soft. Bowel sounds are diminished. There is no mass. There is a dressing in place. EXTREMITIES: There is no edema. LYMPHATICS: There is no lymphadenopathy. NEUROLOGIC: Alert and oriented. SKIN: Chronic changes. LABORATORY DATA: I reviewed the following lab data. Her COVID-19 was negative. Sodium 138, potassium 4.1, chloride 103, CO2 of 24, glucose 148, BUN 24, creatinine 0.9. Lactic acid 1.9, lipase 71. WBC 27.1, hemoglobin 9.9, platelets 334. CT of abdomen and pelvis did show multifocal regions of low density along the left renal cortex; right greater than the left pleural effusion with some air space disease, severe vascular disease, complete thrombosis of her mesenteric artery bypass graft. CT angiogram of the chest in 04/2019 showed bilateral pulmonary nodules, less than 6-mm emphysema and mediastinal lymphadenopathy. IMPRESSION: 1. Acute respiratory failure, expected multifactorial in etiology. 2. Abnormal chest x-ray and CT of the chest. 3. Chronic obstructive pulmonary disease. 4. Tobacco habituation. 5. Acute mesenteric ischemia, status post exploratory laparotomy, superior mesenteric artery thrombectomy, extensive lysis, postop day #1. 6. Hypertension. 7. Hyperlipidemia. 8. Coronary artery disease. PLAN AND RECOMMENDATIONS: 1. Titrate FiO2 to keep O2 saturation 92%. 2. Continue bronchodilator. 3. I will add Pulmicort b.i.d. 4. Start incentive spirometer, to use multiple times an hour. 5. She does have bilateral infiltrate, right more than left and bilateral small effusion, right more than left. I suspect it is secondary to intraabdominal process, cannot rule out CHF. 6. I will do troponin and BNP. 7. I will do CT of the chest, follow up pulmonary nodules. 8. Heparin drip per vascular surgeons. 9. Protonix for stress ulcer prophylaxis. 10. I had a long discussion with her regarding smoking cessation. I have advised her to stop smoking forever. 11. We will monitor her very closely in ICU. 12. The findings and recommendations were discussed with the patient and RN. ZOILA TAPIA M.D. DR: SERVANDO/heriberto JOB#: [id number] / [id number] RUDY
--- NOTE | 2020-06-02 15:13 | PDOC ---
G I PROGRESS NOTE Reason for Follow-up Recurrent abd pain/hx thromboembolism Subjective feeling better s/p embolectomy Physical Exam Lungs clear CV S1 S2 ABD incisions tntact, hypoactive BS Review of Relevant I have reviewed the following items lucia (where applicable) has been applied. Labs Laboratory Tests Test 06/01/20 03:30 06/01/20 05:50 06/01/20 07:05 06/01/20 09:55 White Blood Count 30.3 x10^3/uL (4.0-11.0) Red Blood Count 3.72 x10^6/uL (3.50-5.40) Hemoglobin 7.8 g/dL (12.0-15.5) Hematocrit 25.7 % (36.0-47.0) Mean Corpuscular Volume 69 fL (79-100) Mean Corpuscular Hemoglobin 21 pg (25-35) Mean Corpuscular Hemoglobin Concent 30 g/dL (31-37) Red Cell Distribution Width 25.5 % (11.5-14.5) Platelet Count 484 x10^3/uL (140-400) Neutrophils (%) (Auto) 78 % (31-73) Lymphocytes (%) (Auto) 15 % (24-48) Monocytes (%) (Auto) 6 % (0-9) Eosinophils (%) (Auto) 0 % (0-3) Basophils (%) (Auto) 0 % (0-3) Neutrophils # (Auto) 23.7 x10^3/uL (1.8-7.7) Lymphocytes # (Auto) 4.6 x10^3/uL (1.0-4.8) Monocytes # (Auto) 1.9 x10^3/uL (0.0-1.1) Eosinophils # (Auto) 0.0 x10^3/uL (0.0-0.7) Basophils # (Auto) 0.1 x10^3/uL (0.0-0.2) Sodium Level 140 mmol/L (136-145) Potassium Level 3.6 mmol/L (3.5-5.1) Chloride Level 101 mmol/L (98-107) Carbon Dioxide Level 27 mmol/L (21-32) Anion Gap 12 (6-14) Blood Urea Nitrogen 42 mg/dL (7-20) Creatinine 0.9 mg/dL (0.6-1.0) Estimated GFR (Cockcroft-Gault) 62.1 BUN/Creatinine Ratio 47 (6-20) Glucose Level 165 mg/dL (70-99) Calcium Level 8.1 mg/dL (8.5-10.1) Total Bilirubin 0.6 mg/dL (0.2-1.0) Aspartate Amino Transf (AST/SGOT) 25 U/L (15-37) Alanine Aminotransferase (ALT/SGPT) 36 U/L (14-59) Alkaline Phosphatase 123 U/L (46-116) Total Protein 6.3 g/dL (6.4-8.2) Albumin 3.1 g/dL (3.4-5.0) Albumin/Globulin Ratio 1.0 (1.0-1.7) Lipase 71 U/L (73-393) Lactic Acid Level 2.4 mmol/L (0.4-2.0) 1.9 mmol/L (0.4-2.0) Urine Collection Type Unknown Urine Color Yellow Urine Clarity Clear Urine pH 7.0 (<5.0-8.0) Urine Specific [place] 1.025 (1.000-1.030) Urine Protein Negative mg/dL (NEG-TRACE) Urine Glucose (UA) Negative mg/dL (NEG) Urine Ketones (Stick) Negative mg/dL (NEG) Urine Blood Negative (NEG) Urine Nitrite Negative (NEG) Urine Bilirubin Negative (NEG) Urine Urobilinogen Dipstick 0.2 mg/dL (0.2 mg/dL) Urine Leukocyte Esterase Negative (NEG) Urine RBC Occ /HPF (0-2) Urine WBC 0 /HPF (0-4) Urine Squamous Epithelial Cells Occ /LPF Urine Bacteria 0 /HPF (0-FEW) Test 06/01/20 16:15 06/01/20 21:09 06/01/20 21:45 06/02/20 04:45 Coronavirus (COVID-19)(PCR) Negative (NEGATIVE) SARS-CoV-2 Antigen (Rapid) Negative (NEGATIVE) Glucose (Fingerstick) 168 mg/dL (70-99) White Blood Count 26.4 x10^3/uL (4.0-11.0) 27.1 x10^3/uL (4.0-11.0) Red Blood Count 4.54 x10^6/uL (3.50-5.40) 4.34 x10^6/uL (3.50-5.40) Hemoglobin 10.4 g/dL (12.0-15.5) 9.9 g/dL (12.0-15.5) Hematocrit 33.5 % (36.0-47.0) 32.0 % (36.0-47.0) Mean Corpuscular Volume 74 fL (79-100) 74 fL (79-100) Mean Corpuscular Hemoglobin 23 pg (25-35) 23 pg (25-35) Mean Corpuscular Hemoglobin Concent 31 g/dL (31-37) 31 g/dL (31-37) Red Cell Distribution Width 27.4 % (11.5-14.5) 27.3 % (11.5-14.5) Platelet Count 371 x10^3/uL (140-400) 334 x10^3/uL (140-400) Sodium Level 136 mmol/L (136-145) 138 mmol/L (136-145) Potassium Level 3.9 mmol/L (3.5-5.1) 4.1 mmol/L (3.5-5.1) Chloride Level 101 mmol/L (98-107) 103 mmol/L (98-107) Carbon Dioxide Level 26 mmol/L (21-32) 24 mmol/L (21-32) Anion Gap 9 (6-14) 11 (6-14) Blood Urea Nitrogen 26 mg/dL (7-20) 24 mg/dL (7-20) Creatinine 0.9 mg/dL (0.6-1.0) 0.9 mg/dL (0.6-1.0) Estimated GFR (Cockcroft-Gault) 62.1 62.1 Glucose Level 169 mg/dL (70-99) 148 mg/dL (70-99) Calcium Level 7.7 mg/dL (8.5-10.1) 7.7 mg/dL (8.5-10.1) Neutrophils (%) (Auto) 85 % (31-73) Lymphocytes (%) (Auto) 9 % (24-48) Monocytes (%) (Auto) 5 % (0-9) Eosinophils (%) (Auto) 0 % (0-3) Basophils (%) (Auto) 0 % (0-3) Neutrophils # (Auto) 23.0 x10^3/uL (1.8-7.7) Lymphocytes # (Auto) 2.5 x10^3/uL (1.0-4.8) Monocytes # (Auto) 1.5 x10^3/uL (0.0-1.1) Eosinophils # (Auto) 0.0 x10^3/uL (0.0-0.7) Basophils # (Auto) 0.1 x10^3/uL (0.0-0.2) Heparin Anti-Xa Act, Unfractionated 0.11 IU/mL (0.30-0.70) BUN/Creatinine Ratio 27 (6-20) Magnesium Level 1.8 mg/dL (1.8-2.4) Total Bilirubin 1.0 mg/dL (0.2-1.0) Aspartate Amino Transf (AST/SGOT) 54 U/L (15-37) Alanine Aminotransferase (ALT/SGPT) 69 U/L (14-59) Alkaline Phosphatase 102 U/L (46-116) Troponin I Quantitative 0.090 ng/mL (0.000-0.055) GD-Ipi-G-Type Natriuretic Peptide 27828 pg/mL (0-124) Total Protein 5.8 g/dL (6.4-8.2) Albumin 2.7 g/dL (3.4-5.0) Albumin/Globulin Ratio 0.9 (1.0-1.7) Test 06/02/20 12:00 Heparin Anti-Xa Act, Unfractionated 0.31 IU/mL (0.30-0.70) Laboratory Tests Test 06/01/20 16:15 06/01/20 21:09 06/01/20 21:45 06/02/20 04:45 Coronavirus (COVID-19)(PCR) Negative (NEGATIVE) SARS-CoV-2 Antigen (Rapid) Negative (NEGATIVE) Glucose (Fingerstick) 168 mg/dL (70-99) White Blood Count 26.4 x10^3/uL (4.0-11.0) 27.1 x10^3/uL (4.0-11.0) Red Blood Count 4.54 x10^6/uL (3.50-5.40) 4.34 x10^6/uL (3.50-5.40) Hemoglobin 10.4 g/dL (12.0-15.5) 9.9 g/dL (12.0-15.5) Hematocrit 33.5 % (36.0-47.0) 32.0 % (36.0-47.0) Mean Corpuscular Volume 74 fL (79-100) 74 fL (79-100) Mean Corpuscular Hemoglobin 23 pg (25-35) 23 pg (25-35) Mean Corpuscular Hemoglobin Concent 31 g/dL (31-37) 31 g/dL (31-37) Red Cell Distribution Width 27.4 % (11.5-14.5) 27.3 % (11.5-14.5) Platelet Count 371 x10^3/uL (140-400) 334 x10^3/uL (140-400) Sodium Level 136 mmol/L (136-145) 138 mmol/L (136-145) Potassium Level 3.9 mmol/L (3.5-5.1) 4.1 mmol/L (3.5-5.1) Chloride Level 101 mmol/L (98-107) 103 mmol/L (98-107) Carbon Dioxide Level 26 mmol/L (21-32) 24 mmol/L (21-32) Anion Gap 9 (6-14) 11 (6-14) Blood Urea Nitrogen 26 mg/dL (7-20) 24 mg/dL (7-20) Creatinine 0.9 mg/dL (0.6-1.0) 0.9 mg/dL (0.6-1.0) Estimated GFR (Cockcroft-Gault) 62.1 62.1 Glucose Level 169 mg/dL (70-99) 148 mg/dL (70-99) Calcium Level 7.7 mg/dL (8.5-10.1) 7.7 mg/dL (8.5-10.1) Neutrophils (%) (Auto) 85 % (31-73) Lymphocytes (%) (Auto) 9 % (24-48) Monocytes (%) (Auto) 5 % (0-9) Eosinophils (%) (Auto) 0 % (0-3) Basophils (%) (Auto) 0 % (0-3) Neutrophils # (Auto) 23.0 x10^3/uL (1.8-7.7) Lymphocytes # (Auto) 2.5 x10^3/uL (1.0-4.8) Monocytes # (Auto) 1.5 x10^3/uL (0.0-1.1) Eosinophils # (Auto) 0.0 x10^3/uL (0.0-0.7) Basophils # (Auto) 0.1 x10^3/uL (0.0-0.2) Heparin Anti-Xa Act, Unfractionated 0.11 IU/mL (0.30-0.70) BUN/Creatinine Ratio 27 (6-20) Magnesium Level 1.8 mg/dL (1.8-2.4) Total Bilirubin 1.0 mg/dL (0.2-1.0) Aspartate Amino Transf (AST/SGOT) 54 U/L (15-37) Alanine Aminotransferase (ALT/SGPT) 69 U/L (14-59) Alkaline Phosphatase 102 U/L (46-116) Troponin I Quantitative 0.090 ng/mL (0.000-0.055) GP-Kxx-[id number]-Type Natriuretic Peptide 54231 pg/mL (0-124) Total Protein 5.8 g/dL (6.4-8.2) Albumin 2.7 g/dL (3.4-5.0) Albumin/Globulin Ratio 0.9 (1.0-1.7) Test 06/02/20 12:00 Heparin Anti-Xa Act, Unfractionated 0.31 IU/mL (0.30-0.70) Microbiology 06/01/20 Blood Culture - Preliminary, Resulted NO GROWTH AFTER 1 DAY Medications Current Medications Sodium Chloride 500 ml @ 500 mls/hr 1X ONCE IV Last administered on 06/01/20at 04:25; Start 06/01/20 at 04:15; Stop 06/01/20 at 05:14; Status DC Ondansetron HCl (Zofran) 4 mg 1X ONCE IVP Last administered on 06/01/20at 04:25; Start 06/01/20 at 04:15; Stop 06/01/20 at 04:16; Status DC Hydromorphone HCl (Dilaudid) 0.5 mg 1X ONCE IV Last administered on 06/01/20at 04:26; Start 06/01/20 at 04:15; Stop 06/01/20 at 04:16; Status DC Iohexol (Omnipaque 300 Mg/ml) 75 ml 1X ONCE IV Last administered on 06/01/20at 05:14; Start 06/01/20 at 05:00; Stop 06/01/20 at 05:01; Status DC Info (CONTRAST GIVEN -- Rx MONITORING) 1 each PRN DAILY PRN MC SEE COMMENTS; Start 06/01/20 at 05:00; Stop 06/03/20 at 04:59 Ceftriaxone Sodium (Rocephin) 2 gm 1X ONCE IVP Last administered on 06/01/20at 07:23; Start 06/01/20 at 06:45; Stop 06/01/20 at 06:46; Status DC Fentanyl Citrate (Fentanyl 2ml Vial) 50 mcg PRN Q1HR PRN IV PAIN Last administered on 06/01/20at 13:32; Start 06/01/20 at 06:45; Stop 06/02/20 at 06:44; Status DC Sodium Chloride 1,000 ml @ 125 mls/hr Q8H IV Last administered on 06/01/20at 07:22; Start 06/01/20 at 06:45; Stop 06/01/20 at 22:03; Status DC Piperacillin Sod/ Tazobactam Sod 3.375 gm/Sodium Chloride 50 ml @ 100 mls/hr Q6HRS IV Last administered on 06/02/20at 11:30; Start 06/01/20 at 12:30 Sodium Chloride (Normal Saline Flush) 3 ml QSHIFT PRN IV AFTER MEDS AND BLOOD DRAWS; Start 06/01/20 at 12:30 Sodium Chloride 1,000 ml @ 85 mls/hr [id number] IV ; Start 06/01/20 at 12:21; Stop 06/01/20 at 12:37; Status DC Ondansetron HCl (Zofran) 4 mg PRN Q4HRS PRN IV NAUSEA/VOMITING; Start 06/01/20 at 12:30 Acetaminophen (Tylenol) 650 mg PRN Q4HRS PRN PO TEMP OVER 100.4F; Start 06/01/20 at 12:30 Al Hydroxide/Mg Hydroxide (Mylanta Plus Xs) 30 ml PRN DAILY PRN PO HEARTBURN / GAS; Start 06/01/20 at 12:30 Clonidine HCl (Catapres) 0.1 mg PRN Q6HRS PRN PO SBP>160 OR DBP>90; Start 06/01/20 at 12:30 Sodium Monofluorophosphate (Fleet Adult) 133 ml PRN DAILY PRN [place] CONSTIPATION; Start 06/01/20 at 12:30 Docusate Sodium (Colace) 100 mg PRN BID PRN PO HARD STOOLS; Start 06/01/20 at 12:30 Albuterol/ Ipratropium (Duoneb) 3 ml Q4HRS W/A NEB Last administered on 06/02/20at 11:53; Start 06/01/20 at 14:00 Guaifenesin (Robitussin) 200 mg PRN Q4HRS PRN PO COUGH; Start 06/01/20 at 12:30 Enoxaparin Sodium (Lovenox 40mg Syringe) 40 mg Q24H SQ ; Start 06/01/20 at 12:30; Stop 06/01/20 at 13:03; Status DC Allopurinol (Zyloprim) 300 mg DAILY PO Last administered on 06/02/20at 09:25; Start 06/01/20 at 13:00 Aspirin (Ecotrin) 325 mg DAILYWBKFT PO Last administered on 06/02/20at 09:25; Start 06/01/20 at 13:00 Ferrous Sulfate (Feosol) 325 mg BIDWMEALS PO Last administered on 06/02/20at 09:25; Start 06/01/20 at 17:00 Duloxetine HCl (Cymbalta) 60 mg DAILY PO Last administered on 06/02/20at 09:28; Start 06/01/20 at 13:00 Pantoprazole Sodium (Protonix) 40 mg DAILYAC PO Last administered on 06/02/20at 09:25; Start 06/01/20 at 16:30 Potassium Chloride (Klor-Con) 20 meq DAILY@1300 PO Last administered on 06/02/20at 12:33; Start 06/01/20 at 13:00 Atorvastatin Calcium (Lipitor) 5 mg QHS PO ; Start 06/01/20 at 21:00 Enoxaparin Sodium (Lovenox 80mg Syringe) 80 mg Q12HR SQ ; Start 06/01/20 at 13:15; Stop 06/01/20 at 20:18; Status DC Lactobacillus Rhamnosus (Culturelle) 1 cap BID PO Last administered on 06/02/20at 09:25; Start 06/01/20 at 21:00 Sevoflurane (Ultane) 90 ml STK-MED ONCE IH ; Start 06/01/20 at 16:50; Stop 06/01/20 at 16:51; Status DC Succinylcholine Chloride (Anectine) 200 mg STK-MED ONCE .ROUTE ; Start 06/01/20 at 16:51; Stop 06/01/20 at 16:51; Status DC Neostigmine [place] (Neostigmine Methylsulfate) 5 mg STK-MED ONCE .ROUTE ; Start 06/01/20 at 16:51; Stop 06/01/20 at 16:51; Status DC Rocuronium [place] (Zemuron) 50 mg STK-MED ONCE .ROUTE ; Start 06/01/20 at 16:51; Stop 06/01/20 at 16:51; Status DC Fentanyl Citrate (Fentanyl 2ml Vial) 100 mcg STK-MED ONCE .ROUTE ; Start 06/01/20 at 16:51; Stop 06/01/20 at 16:51; Status DC Midazolam HCl (Versed) 2 mg STK-MED ONCE .ROUTE ; Start 06/01/20 at 16:51; Stop 06/01/20 at 16:52; Status DC Glycopyrrolate (Robinul) 1 mg STK-MED ONCE .ROUTE ; Start 06/01/20 at 16:51; Stop 06/01/20 at 16:52; Status DC Heparin Sodium (Porcine) (Heparin Sodium) 10,000 unit STK-MED ONCE .ROUTE ; Start 06/01/20 at 16:52; Stop 06/01/20 at 16:52; Status DC Dexamethasone Sodium Phosphate (Decadron) 4 mg STK-MED ONCE .ROUTE ; Start 06/01/20 at 16:52; Stop 06/01/20 at 16:52; Status DC Dexamethasone Sodium Phosphate (Decadron) 4 mg STK-MED ONCE .ROUTE ; Start 06/01/20 at 16:52; Stop 06/01/20 at 16:52; Status DC Ondansetron HCl (Zofran) 4 mg STK-MED ONCE .ROUTE ; Start 06/01/20 at 16:52; Stop 06/01/20 at 16:52; Status DC Lidocaine HCl (Lidocaine Pf 2% Vial) 5 ml STK-MED ONCE .ROUTE ; Start 06/01/20 at 16:52; Stop 06/01/20 at 16:52; Status DC Propofol (Diprivan) 200 mg STK-MED ONCE IV ; Start 06/01/20 at 16:52; Stop 06/01/20 at 16:53; Status DC Phenylephrine HCl (PHENYLEPHRINE in 0.9% NACL PF) 1 mg STK-MED ONCE IV ; Start 06/01/20 at 16:54; Stop 06/01/20 at 16:55; Status DC Cefazolin Sodium 1 gm/Sodium Chloride 500 ml @ 500 mls/hr 1X ONCE IRR Last administered on 06/01/20at 18:22; Start 06/01/20 at 17:30; Stop 06/01/20 at 18:29; Status DC Heparin Sodium (Porcine) 5000 unit/Sodium Chloride 505 ml @ 505 mls/hr 1X ONCE IRR Last administered on 06/01/20at 18:22; Start 06/01/20 at 17:30; Stop 06/01/20 at 18:29; Status DC Lidocaine HCl (Xylocaine-Mpf 1% 2ml Vial) 2 ml STK-MED ONCE .ROUTE ; Start 06/01/20 at 17:34; Stop 06/01/20 at 17:35; Status DC Heparin Sodium (Porcine) (Heparin Sodium) 10,000 unit STK-MED ONCE .ROUTE ; Start 06/01/20 at 17:45; Stop 06/01/20 at 17:45; Status DC Cellulose (Surgicel Fibrillar 1x2) 1 each STK-MED ONCE .ROUTE Last administered on 06/01/20at 18:22; Start 06/01/20 at 17:45; Stop 06/01/20 at 17:45; Status DC Fentanyl Citrate (Fentanyl 2ml Vial) 100 mcg STK-MED ONCE .ROUTE ; Start 06/01/20 at 18:42; Stop 06/01/20 at 18:43; Status DC Rocuronium [place] (Zemuron) 50 mg STK-MED ONCE .ROUTE ; Start 06/01/20 at 19:11; Stop 06/01/20 at 19:11; Status DC Fentanyl Citrate (Fentanyl 2ml Vial) 100 mcg STK-MED ONCE .ROUTE ; Start 06/01/20 at 19:24; Stop 06/01/20 at 19:25; Status DC Ondansetron HCl (Zofran) 4 mg PRN Q6HRS PRN IV NAUSEA/VOMITING; Start 06/01/20 at 19:45; Stop 06/02/20 at 09:02; Status DC Fentanyl Citrate (Fentanyl 2ml Vial) 25 mcg PRN Q5MIN PRN IV MILD PAIN 1-3; Start 06/01/20 at 19:45; Stop 06/02/20 at 09:02; Status DC Fentanyl Citrate (Fentanyl 2ml Vial) 50 mcg PRN Q5MIN PRN IV MODERATE TO SEVERE PAIN Last administered on 06/01/20at 21:46; Start 06/01/20 at 19:45; Stop 06/02/20 at 09:02; Status DC Morphine Sulfate (Morphine Sulfate) 1 mg PRN Q10MIN PRN IV SEVERE PAIN 7-10 Last administered on 06/01/20at 22:32; Start 06/01/20 at 19:45; Stop 06/02/20 at 09:02; Status DC Ringer's Solution 1,000 ml @ 30 mls/hr Q24H IV ; Start 06/01/20 at 19:38; Stop 06/01/20 at 22:04; Status DC Lidocaine HCl (Xylocaine-Mpf 1% 2ml Vial) 2 ml PRN 1X PRN ID PRIOR TO IV START; Start 06/01/20 at 19:45; Stop 06/02/20 at 09:02; Status DC Hydromorphone HCl (Dilaudid) 0.5 mg PRN Q10MIN PRN IV SEV PAIN, Second choice; Start 06/01/20 at 19:45; Stop 06/02/20 at 09:02; Status DC Prochlorperazine Edisylate (Compazine) 5 mg PACU PRN PRN IV NAUSEA, MRX1; Start 06/01/20 at 19:45; Stop 06/02/20 at 09:02; Status DC Heparin Sodium/ Dextrose 250 ml @ 12.144 mls/ hr CONT PRN IV PER PROTOCOL Last administered on 06/01/20at 21:44; Start 06/01/20 at 21:00 Heparin Sodium (Porcine) (Heparin Sodium) 2,300 unit PRN Q6HRS PRN IV FOR UFH LEVEL LESS THAN 0.2; Start 06/01/20 at 20:30; Stop 06/02/20 at 06:44; Status DC Heparin Sodium (Porcine) (Heparin Sodium) 1,150 unit PRN Q6HRS PRN IV FOR UFH LEVEL 0.2 - 0.29; Start 06/01/20 at 20:30; Stop 06/02/20 at 06:44; Status DC Info (Anti-Coagulation Monitoring By Pharmacy) 1 each PRN DAILY PRN MC SEE COMMENTS; Start 06/01/20 at 20:30 Sodium Chloride 1,000 ml @ 125 mls/hr CONT IV ; Start 06/01/20 at 22:00; Status UNV Sodium Chloride 1,000 ml @ 100 mls/hr Q10H IV Last administered on 06/02/20at 05:44; Start 06/01/20 at 22:00 Morphine Sulfate (Morphine Sulfate) 2 mg PRN Q2HR PRN IV PAIN Last administered on 06/02/20at 15:05; Start 06/02/20 at 00:00 Budesonide (Pulmicort) 0.5 mg RTBID NEB Last administered on 06/02/20at 09:25; Start 06/02/20 at 08:00 Active Scripts Active Feosol (Ferrous Sulfate) 325 Mg Tablet 325 Mg PO BID 90 Days Potassium Chloride 20 Meq Tablet.er 20 Meq PO AFTRNOON 30 Days Aspirin Ec (Aspirin) 325 Mg Tablet. 325 Mg PO DAILYWBKFT 90 Days Reported Protonix (Pantoprazole Sodium) 20 Mg Tablet. 40 Mg PO DAILY Actos (Pioglitazone Hcl) 30 Mg Tablet 30 Mg PO DAILY Pravastatin Sodium 20 Mg Tablet 20 Mg PO QHS Allopurinol 100 Mg Tablet 300 Mg PO DAILY Cymbalta (Duloxetine Hcl) 60 Mg Capsule. 60 Mg PO DAILY Vitals/I & O Vital Sign - Last 24 Hours 06/01/20 06/01/20 06/01/20 06/01/20 16:14 20:25 20:40 20:55 Temp 97.6 97.6 Pulse 85 96 94 Resp 16 16 16 B/P (MAP) 133/70 159/88 165/81 Pulse Ox 100 100 96 97 O2 Delivery Room Air Simple Mask Simple Mask Room Air O2 Flow Rate 10 10 06/01/20 06/01/20 06/01/20 06/01/20 21:10 21:25 21:32 21:46 Pulse 85 81 Resp 16 16 16 B/P (MAP) 157/69 136/70 Pulse Ox 94 96 95 95 O2 Delivery Nasal Cannula Nasal Cannula Nasal Cannula O2 Flow Rate 4 4 4.0 4.0 06/01/20 06/01/20 06/01/20 06/01/20 22:00 22:00 22:15 22:30 Temp 98.6 98.6 Pulse 84 84 82 82 Resp 18 18 18 B/P (MAP) 158/58 (91) 158/58 (91) 140/56 (84) 146/58 (87) Pulse Ox 95 96 95 O2 Delivery Nasal Cannula Nasal Cannula Nasal Cannula O2 Flow Rate 2.0 2.0 2.0 06/01/20 06/01/20 06/01/20 06/01/20 22:32 23:00 23:02 23:46 Pulse 84 Resp 20 18 20 B/P (MAP) 156/60 (92) Pulse Ox 95 96 95 95 O2 Delivery Room Air Nasal Cannula Nasal Cannula Room Air O2 Flow Rate 4.0 2.0 4.0 4.0 06/01/20 06/02/20 06/02/20 06/02/20 23:46 00:00 00:00 00:01 Pulse 88 82 Resp 18 B/P (MAP) 153/64 (93) 151/76 (101) Pulse Ox 95 96 O2 Delivery Room Air Nasal Cannula Nasal Cannula O2 Flow Rate 4.0 2.0 2.0 06/02/20 06/02/20 06/02/20 06/02/20 01:00 02:00 03:00 04:00 Temp 98.5 99.1 98.5 99.1 Pulse 82 88 90 88 Resp 18 16 16 14 B/P (MAP) 151/76 (101) 156/63 (94) 149/60 (89) 140/54 (82) Pulse Ox 96 96 96 98 O2 Delivery Nasal Cannula Nasal Cannula Nasal Cannula Nasal Cannula O2 Flow Rate 2.0 2.0 2.0 2.0 06/02/20 06/02/20 06/02/20 06/02/20 04:00 04:00 04:46 05:00 Pulse 88 90 Resp 18 14 B/P (MAP) 140/54 (82) 150/57 (88) Pulse Ox 98 95 O2 Delivery Nasal Cannula Nasal Cannula Nasal Cannula O2 Flow Rate 2.0 2.0 2.0 06/02/20 06/02/20 06/02/20 06/02/20 05:16 06:00 07:00 08:00 Pulse 87 90 Resp 14 14 16 B/P (MAP) 153/56 (88) 140/54 (82) Pulse Ox 95 95 95 O2 Delivery Nasal Cannula Nasal Cannula Nasal Cannula O2 Flow Rate 2.0 2.0 5.0 06/02/20 06/02/20 06/02/20 06/02/20 08:00 08:00 09:00 09:05 Temp 97.7 97.7 Pulse 95 94 Resp 12 14 B/P (MAP) 154/55 (88) 152/58 (89) Pulse Ox 94 100 96 O2 Delivery Nasal Cannula Nasal Cannula Nasal Cannula Nasal Cannula O2 Flow Rate 5.0 2.0 5.0 4.0 06/02/20 06/02/20 06/02/20 06/02/20 10:00 11:00 11:46 11:55 Pulse 97 92 Resp 12 12 14 B/P (MAP) 114/54 (74) 127/63 (84) Pulse Ox 91 92 94 93 O2 Delivery Nasal Cannula Nasal Cannula Nasal Cannula Nasal Cannula O2 Flow Rate 3.0 3.0 3.0 3.0 06/02/20 06/02/20 06/02/20 06/02/20 12:00 12:00 12:16 13:00 Temp 100.1 100.1 Pulse 93 96 Resp 15 16 11 B/P (MAP) 123/62 (82) 100/58 (72) Pulse Ox 93 94 96 O2 Delivery Nasal Cannula Nasal Cannula Nasal Cannula O2 Flow Rate 3.0 3.0 3.0 3.0 06/02/20 06/02/20 14:00 15:00 Pulse 97 102 Resp 12 14 B/P (MAP) 119/56 (77) 119/66 (83) Pulse Ox 95 95 O2 Delivery Nasal Cannula Nasal Cannula O2 Flow Rate 3.0 3.0 Intake and Output 06/01/20 06/01/20 06/02/20 15:00 23:00 07:00 Intake Total 100 ml 0 ml Output Total 675 ml 375 ml Balance 100 ml -675 ml -375 ml Problem List Problems Medical Problems: (1) Acute PN (pyelonephritis) Status: Acute (2) Periumbilical pain Status: Acute Assessment Abd pain- with recurrent arterial emboli, medical therpay as above Justicifation of Admission Dx: Justifications for Admission: Justification of Admission Dx: Yes Sepsis: Infection CASPER SCHILLING MD Jun 02, 2020 15:13
[2020-06-02] MEDS: HEPARIN 25,000UTS/250ML PREMIX 250 ML IV PRN (20:10)
[2020-06-02] MEDS: ATORVASTATIN CALCIUM 10 MG TABLET. PO SCH (20:18)
[2020-06-03] VITALS (17 sets, daily range): BP systolic 107–137; BP diastolic 46–68
[2020-06-03] MEDS: PIPERACILLIN/TAZOBACTAM 3.375 GM in IV NORMAL SALINE 50ML 50 ML IV SCH ×5 (01:02→23:45)
[2020-06-03] MEDS: MORPHINE SULFATE 2 MG/ML VIAL. IV PRN ×2 (02:54→12:07)
[2020-06-03] MEDS: IV NORMAL SALINE 1000ML BAG 1,000 ML IV SCH ×3 (02:57→23:44)
[2020-06-03 06:00] LABS: BASO # 0.1 x10^3/uL (0.0-0.2); BASO % 0 % (0-3); EOS % 0 % (0-3); HEMATOCRIT 27.7 % (36.0-47.0); HEMOGLOBIN 8.6 g/dL (12.0-15.5); LYMPH # 2.2 x10^3/uL (1.0-4.8); LYMPH % 11 % (24-48); MEAN CORPUSCULAR HEMOGLOBIN 23 pg (25-35); MEAN CORPUSCULAR HGB CONC 31 g/dL (31-37); MEAN CORPUSCULAR VOLUME 75 fL (79-100); MONO # 1.4 x10^3/uL (0.0-1.1); MONO % 7 % (0-9); NEUT # 15.3 x10^3/uL (1.8-7.7); NEUT % 81 % (31-73); PLATELET COUNT 267 x10^3/uL (140-400); RED BLOOD COUNT 3.72 x10^6/uL (3.50-5.40); RED CELL DISTRIBUTION WIDTH 28.1 % (11.5-14.5)
[2020-06-03 06:07] LABS: CALCIUM 7.4 mg/dL (8.5-10.1); CREATININE 0.7 mg/dL (0.6-1.0); POTASSIUM 3.6 mmol/L (3.5-5.1)
[2020-06-03] MEDS: PANTOPRAZOLE 40 MG TABLET.DR. PO SCH (07:30)
--- NOTE | 2020-06-03 07:46 | PDOC ---
DATE OF SERVICE: DATE: 06/03/20 TIME: 07:44 GENERAL General: vss and tmax 99.8. awake and alert and in icu. chest clear, heart regular, abdomen soft with post op tenderness. Hb 8.6 and wbc decreasing. renal function ok. encouraged increasing activity. otherwise same. VITAL SIGNS/I&O Vital Signs/I&O: Vital Signs Date Time Temp Pulse Resp B/P (MAP) Pulse Ox O2 Delivery O2 Flow Rate FiO2 06/03/20 06:00 96 20 125/64 (84) 97 Nasal Cannula 4.0 06/03/20 04:00 98.6 98.6 I & O 06/02/20 06/02/20 06/03/20 15:00 23:00 07:00 Intake Total 50 ml 1380 ml 1504.1 ml Output Total 390 ml 510 ml 375 ml Balance -340 ml 870 ml 1129.1 ml ALLERGIES Allergies: Allergies Coded Allergies Type Severity Reaction Last Updated Verified shrimp Allergy Intermediate Rash 12/12/19 Yes MEDS Medications: Current Medications Medications (Trade) Dose Ordered Sig/Kira Route PRN Reason Start Time Stop Time Status Last Admin Dose Admin Budesonide (Pulmicort) 0.5 mg RTBID NEB 06/02/20 08:00 06/02/20 19:40 LAB Lab: Laboratory Tests Test 06/02/20 12:00 06/02/20 17:51 06/03/20 05:40 Heparin Anti-Xa Act, Unfractionated 0.31 IU/mL (0.30-0.70) 0.41 IU/mL (0.30-0.70) 0.28 IU/mL (0.30-0.70) L White Blood Count 19.0 x10^3/uL (4.0-11.0) H Red Blood Count 3.72 x10^6/uL (3.50-5.40) Hemoglobin 8.6 g/dL (12.0-15.5) L Hematocrit 27.7 % (36.0-47.0) L Mean Corpuscular Volume 75 fL (79-100) L Mean Corpuscular Hemoglobin 23 pg (25-35) L Mean Corpuscular Hemoglobin Concent 31 g/dL (31-37) Red Cell Distribution Width 28.1 % (11.5-14.5) H Platelet Count 267 x10^3/uL (140-400) Neutrophils (%) (Auto) 81 % (31-73) H Lymphocytes (%) (Auto) 11 % (24-48) L Monocytes (%) (Auto) 7 % (0-9) Eosinophils (%) (Auto) 0 % (0-3) Basophils (%) (Auto) 0 % (0-3) Neutrophils # (Auto) 15.3 x10^3/uL (1.8-7.7) H Lymphocytes # (Auto) 2.2 x10^3/uL (1.0-4.8) Monocytes # (Auto) 1.4 x10^3/uL (0.0-1.1) H Eosinophils # (Auto) 0.0 x10^3/uL (0.0-0.7) Basophils # (Auto) 0.1 x10^3/uL (0.0-0.2) Sodium Level 139 mmol/L (136-145) Potassium Level 3.6 mmol/L (3.5-5.1) Chloride Level 105 mmol/L (98-107) Carbon Dioxide Level 28 mmol/L (21-32) Anion Gap 6 (6-14) Blood Urea Nitrogen 16 mg/dL (7-20) Creatinine 0.7 mg/dL (0.6-1.0) Estimated GFR (Cockcroft-Gault) 83.0 Glucose Level 111 mg/dL (70-99) H Calcium Level 7.4 mg/dL (8.5-10.1) L Laboratory Tests 06/03/20 05:40 Laboratory Tests 06/03/20 05:40 Justicifation of Admission Dx: Justifications for Admission: Justification of Admission Dx: Yes Sepsis: Infection ANABEL MARTÍNEZ MD Jun 03, 2020 07:46
[2020-06-03] MEDS: FERROUS SULFATE 325 MG TABLET. PO SCH ×2 (08:00→17:13)
[2020-06-03] MEDS: ASPIRIN ENTERIC COATED 325 MG TABLET.DR. PO SCH (08:00)
[2020-06-03] MEDS: BUDESONIDE 0.5 MG/2 ML NEBU. NEB SCH ×2 (08:25→19:34)
[2020-06-03] MEDS: IPRATRPIUM/ALBUTEROL 0.5/2.5MG 3 ML NEBU. NEB SCH ×4 (08:25→19:34)
--- NOTE | 2020-06-03 08:27 | PDOC ---
Infectious Disease Note Subjective: Subjective Pt is alert awake says feels better t max 100.1 Pain controlled Denies F/C/ N/V. Denies SOA Vital Signs: Vital Signs Vital Signs Date Time Temp Pulse Resp B/P (MAP) Pulse Ox O2 Delivery O2 Flow Rate FiO2 06/03/20 07:00 98.4 82 109/55 (73) 95 Nasal Cannula 4.0 98.4 06/03/20 06:00 20 Physical Exam: PHYSICAL EXAM GENERAL: Propped up in bed, awake, in NAD HENT: BRIDGER, Oropharynx pink dry. No lesions. + NGT NECK: Supple LUNGS: CTAB, nonlabored HEART: S1 and S2, irregular ABDOMEN: Some distention, BS quiet, soft, tender. 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 x 3 RIJ (06/01) without signs of complications Medications: Inpatient Meds: Current Medications Medications (Trade) Dose Ordered Sig/Kira Start Time Stop Time Status Last Admin Dose Admin Acetaminophen (Tylenol) 650 mg PRN Q4HRS PRN 06/01/20 12:30 Al Hydroxide/Mg Hydroxide (Mylanta Plus Xs) 30 ml PRN DAILY PRN 06/01/20 12:30 Albuterol/ Ipratropium (Duoneb) 3 ml Q4HRS W/A 06/01/20 14:00 06/02/20 19:40 3 ML Allopurinol (Zyloprim) 300 mg DAILY 06/01/20 13:00 06/02/20 09:25 300 MG Aspirin (Ecotrin) 325 mg DAILYWBKFT 06/01/20 13:00 06/02/20 09:25 325 MG Atorvastatin Calcium (Lipitor) 5 mg QHS 06/01/20 21:00 06/02/20 20:18 5 MG Budesonide (Pulmicort) 0.5 mg RTBID 06/02/20 08:00 06/02/20 19:40 0.5 MG Cefazolin Sodium 1 gm/Sodium Chloride 500 ml @ 500 mls/hr 1X ONCE 06/01/20 17:30 06/01/20 18:29 DC 06/01/20 18:22 Ceftriaxone Sodium (Rocephin) 2 gm 1X ONCE 06/01/20 06:45 06/01/20 06:46 DC 06/01/20 07:23 2 GM Cellulose (Surgicel Fibrillar 1x2) 1 each STK-MED ONCE 06/01/20 17:45 06/01/20 17:45 DC 06/01/20 18:22 1 EACH Clonidine HCl (Catapres) 0.1 mg PRN Q6HRS PRN 06/01/20 12:30 Dexamethasone Sodium Phosphate (Decadron) 4 mg STK-MED ONCE 06/01/20 16:52 06/01/20 16:52 DC Docusate Sodium (Colace) 100 mg PRN BID PRN 06/01/20 12:30 Duloxetine HCl (Cymbalta) 60 mg DAILY 06/01/20 13:00 06/02/20 09:28 60 MG Enoxaparin Sodium (Lovenox 40mg Syringe) 40 mg Q24H 06/01/20 12:30 06/01/20 13:03 DC Enoxaparin Sodium (Lovenox 80mg Syringe) 80 mg Q12HR 06/01/20 13:15 06/01/20 20:18 DC Fentanyl Citrate (Fentanyl 2ml Vial) 50 mcg PRN Q5MIN PRN 06/01/20 19:45 06/02/20 09:02 DC 06/01/20 21:46 50 MCG Ferrous Sulfate (Feosol) 325 mg BIDWMEALS 06/01/20 17:00 06/02/20 16:46 325 MG Glycopyrrolate (Robinul) 1 mg STK-MED ONCE 06/01/20 16:51 06/01/20 16:52 DC Guaifenesin (Robitussin) 200 mg PRN Q4HRS PRN 06/01/20 12:30 Heparin Sodium (Porcine) (Heparin Sodium) 1,150 unit PRN Q6HRS PRN 06/01/20 20:30 06/02/20 06:44 DC Heparin Sodium (Porcine) 5000 unit/Sodium Chloride 505 ml @ 505 mls/hr 1X ONCE 06/01/20 17:30 06/01/20 18:29 DC 06/01/20 18:22 Heparin Sodium/ Dextrose 250 ml @ 12.144 mls/ hr CONT PRN 06/01/20 21:00 06/02/20 20:10 12.144 MLS/HR Hydromorphone HCl (Dilaudid) 0.5 mg PRN Q10MIN PRN 06/01/20 19:45 06/02/20 09:02 DC Info (Anti-Coagulation Monitoring By Pharmacy) 1 each PRN DAILY PRN 06/01/20 20:30 Info (CONTRAST GIVEN -- Rx MONITORING) 1 each PRN DAILY PRN 06/01/20 05:00 06/03/20 04:59 DC Iohexol (Omnipaque 300 Mg/ml) 75 ml 1X ONCE 06/01/20 05:00 06/01/20 05:01 DC 06/01/20 05:14 75 ML Lactobacillus Rhamnosus (Culturelle) 1 cap BID 06/01/20 21:00 06/02/20 09:25 1 CAP Lidocaine HCl (Lidocaine Pf 2% Vial) 5 ml STK-MED ONCE 06/01/20 16:52 06/01/20 16:52 DC Lidocaine HCl (Xylocaine-Mpf 1% 2ml Vial) 2 ml PRN 1X PRN 06/01/20 19:45 06/02/20 09:02 DC Midazolam HCl (Versed) 2 mg STK-MED ONCE 06/01/20 16:51 06/01/20 16:52 DC Morphine Sulfate (Morphine Sulfate) 2 mg PRN Q2HR PRN 06/02/20 00:00 06/03/20 02:54 2 MG Neostigmine Clinton (Neostigmine Methylsulfate) 5 mg STK-MED ONCE 06/01/20 16:51 06/01/20 16:51 DC Ondansetron HCl (Zofran) 4 mg PRN Q6HRS PRN 06/01/20 19:45 06/02/20 09:02 DC Pantoprazole Sodium (Protonix) 40 mg DAILYAC 06/01/20 16:30 06/02/20 09:25 40 MG Phenylephrine HCl (PHENYLEPHRINE in 0.9% NACL PF) 1 mg STK-MED ONCE 06/01/20 16:54 06/01/20 16:55 DC Piperacillin Sod/ Tazobactam Sod 3.375 gm/Sodium Chloride 50 ml @ 100 mls/hr Q6HRS 06/01/20 12:30 06/03/20 06:28 100 MLS/HR Potassium Chloride (Klor-Con) 20 meq DAILY@1300 8/8/20 13:00 06/02/20 12:33 20 MEQ Prochlorperazine Edisylate (Compazine) 5 mg PACU PRN PRN 06/01/20 19:45 06/02/20 09:02 DC Propofol (Diprivan) 200 mg STK-MED ONCE 06/01/20 16:52 06/01/20 16:53 DC Ringer's Solution 1,000 ml @ 30 mls/hr Q24H 06/01/20 19:38 06/01/20 22:04 DC Rocuronium Clinton (Zemuron) 50 mg STK-MED ONCE 06/01/20 19:11 06/01/20 19:11 DC Sevoflurane (Ultane) 90 ml STK-MED ONCE 06/01/20 16:50 06/01/20 16:51 DC Sodium Monofluorophosphate (Fleet Adult) 133 ml PRN DAILY PRN 06/01/20 12:30 Sodium Chloride 1,000 ml @ 100 mls/hr Q10H 06/01/20 22:00 06/03/20 02:57 100 MLS/HR Sodium Chloride (Normal Saline Flush) 3 ml QSHIFT PRN 06/01/20 12:30 Succinylcholine Chloride (Anectine) 200 mg STK-MED ONCE 06/01/20 16:51 06/01/20 16:51 DC Labs: Lab Laboratory Tests Test 06/02/20 12:00 06/02/20 17:51 06/03/20 05:40 Heparin Anti-Xa Act, Unfractionated 0.31 IU/mL (0.30-0.70) 0.41 IU/mL (0.30-0.70) 0.28 IU/mL (0.30-0.70) White Blood Count 19.0 x10^3/uL (4.0-11.0) Red Blood Count 3.72 x10^6/uL (3.50-5.40) Hemoglobin 8.6 g/dL (12.0-15.5) Hematocrit 27.7 % (36.0-47.0) Mean Corpuscular Volume 75 fL (79-100) Mean Corpuscular Hemoglobin 23 pg (25-35) Mean Corpuscular Hemoglobin Concent 31 g/dL (31-37) Red Cell Distribution Width 28.1 % (11.5-14.5) Platelet Count 267 x10^3/uL (140-400) Neutrophils (%) (Auto) 81 % (31-73) Lymphocytes (%) (Auto) 11 % (24-48) Monocytes (%) (Auto) 7 % (0-9) Eosinophils (%) (Auto) 0 % (0-3) Basophils (%) (Auto) 0 % (0-3) Neutrophils # (Auto) 15.3 x10^3/uL (1.8-7.7) Lymphocytes # (Auto) 2.2 x10^3/uL (1.0-4.8) Monocytes # (Auto) 1.4 x10^3/uL (0.0-1.1) Eosinophils # (Auto) 0.0 x10^3/uL (0.0-0.7) Basophils # (Auto) 0.1 x10^3/uL (0.0-0.2) Sodium Level 139 mmol/L (136-145) Potassium Level 3.6 mmol/L (3.5-5.1) Chloride Level 105 mmol/L (98-107) Carbon Dioxide Level 28 mmol/L (21-32) Anion Gap 6 (6-14) Blood Urea Nitrogen 16 mg/dL (7-20) Creatinine 0.7 mg/dL (0.6-1.0) Estimated GFR (Cockcroft-Gault) 83.0 Glucose Level 111 mg/dL (70-99) Calcium Level 7.4 mg/dL (8.5-10.1) Objective: Assessment: Abdominal pain, nausea, and vomiting, most likely secondary to mesenteric ischemia; Multiple 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 s/p expl lap, REX and superior mesenteric artery Lexie thrombectomy on, 06/01. Leukocytosis is reactive, in part steroids and surgery Tobaccoism Chronic obstructive pulmonary disease. Hypertension. Hyperlipidemia. Diabetes. Plan: Plan of Care Zosyn Monitor WBC/temp BC neg to date Maintain hydration Local wound care as directed. Maintain aspiration precautions Smoking cessation f/u CT chest D/w nursing JACOB RAPHAEL MD Jun 03, 2020 08:26
[2020-06-03] MEDS: DULoxetine HCL 30 MG CAPSULE.DR PO SCH (08:42)
[2020-06-03] MEDS: LACTOBACILLUS RHAMNOSUS GG 1 CAPSULE. PO SCH ×2 (08:42→20:40)
[2020-06-03] MEDS: ALLOPURINOL 300 MG TABLET. PO SCH (08:43)
--- NOTE | 2020-06-03 09:48 | PDOC ---
Date of Service: DATE: 06/03/20 TIME: 09:39 Subjective: Subjective: Feels better. Objective: Vital Signs: Vital Signs Date Time Temp Pulse Resp B/P (MAP) Pulse Ox O2 Delivery O2 Flow Rate FiO2 06/03/20 08:35 81 117/57 (77) 97 Nasal Cannula 4.0 06/03/20 07:00 98.4 98.4 06/03/20 06:00 20 Labs: Laboratory Tests Test 06/02/20 12:00 06/02/20 17:51 06/03/20 05:40 Heparin Anti-Xa Act, Unfractionated 0.31 IU/mL 0.41 IU/mL 0.28 IU/mL White Blood Count 19.0 x10^3/uL Red Blood Count 3.72 x10^6/uL Hemoglobin 8.6 g/dL Hematocrit 27.7 % Mean Corpuscular Volume 75 fL Mean Corpuscular Hemoglobin 23 pg Mean Corpuscular Hemoglobin Concent 31 g/dL Red Cell Distribution Width 28.1 % Platelet Count 267 x10^3/uL Neutrophils (%) (Auto) 81 % Lymphocytes (%) (Auto) 11 % Monocytes (%) (Auto) 7 % Eosinophils (%) (Auto) 0 % Basophils (%) (Auto) 0 % Neutrophils # (Auto) 15.3 x10^3/uL Lymphocytes # (Auto) 2.2 x10^3/uL Monocytes # (Auto) 1.4 x10^3/uL Eosinophils # (Auto) 0.0 x10^3/uL Basophils # (Auto) 0.1 x10^3/uL Sodium Level 139 mmol/L Potassium Level 3.6 mmol/L Chloride Level 105 mmol/L Carbon Dioxide Level 28 mmol/L Anion Gap 6 Blood Urea Nitrogen 16 mg/dL Creatinine 0.7 mg/dL Estimated GFR (Cockcroft-Gault) 83.0 Glucose Level 111 mg/dL Calcium Level 7.4 mg/dL Imaging: CT A/P 06/01 FINDINGS: Small right greater than left pleural effusion with adjacent airspace consolidation. Repeat demonstration of high-grade narrowing of the proximal celiac arterywith contrast again seen more distally within the hepatic artery which could be secondary to collateral flow or a tiny amount of contrast passingdistal to this site of near occlusion. 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 Inferior mesenteric artery again is patent proximally. Liver is mildly low density. Nonspecific but can be seen with fatty infiltration. Small fat-containing umbilical hernia. No peripancreatic Fluid collection. Lobulated appearance of the spleen. Multiple regions of low density along the cortex of the left kidney which appears to be a new finding. No hydronephrosis. Urinary bladder is somewhat distended at time of exam. The uterus is seen. Subcentimeter low-density bilateral renal lesions which are too small to characterize but a common finding and are grossly similar to prior. Suture line is seen at the right side of the colon postoperatively. No dilated loops of bowel to suggest obstruction. Degenerative changes of the spine with multilevel central canal and neural foraminal stenosis. IMPRESSION: * Interval development of multifocal regions of low density along the left renal cortex. Given the patient's severe vascular disease with regions of stenosis or occlusion the top differential consideration would be left renal infarct. Also correlate with infectious symptoms to ensure that there is not a superimposed pyelonephritis since infection can have a similar appearance to renal infarct. * Right greater than left pleural effusion with adjacent airspace consolidation. * Severe vascular disease as described above is again seen. CXR 06/01 Impression: 1. Interval placement right IJ central line and enteric tube. 2. Diffuse interstitial thickening with increased patchy right mid and basilar opacity. 3. Small bilateral pleural effusions, increased on the left. PE: GEN: NAD - was asleep LUNGS: diminished HEART: RRR ABD: soft, quiet, mild discomfort NEURO/PSYCH: A & O 3 A/P: S/p SMA thrombectomy, REX, expl laparotomy 06/01/20 H/o ELIDA - restarted on PO iron last week GERD - on PPI CRC screen (02/2019) Diverticulosis, hemorrhoids S/p lap right colectomy for TVA (03/2019) COVID negative -- Diet per vascular. IV PPI for now. Reviewed orders - will ask for heme/onc consult as recommended by Dr. Jean. Justicifation of Admission Dx: Justifications for Admission: Justification of Admission Dx: Yes Sepsis: Infection ELDA HUTTON Jun 03, 2020 09:48
[2020-06-03] MEDS: ANTI-COAG MONITOR BY PHARMACY. MC PRN (10:05)
--- NOTE | 2020-06-03 10:27 | NUR ---
SS following for discharge planning. SS reviewed pt chart and discussed with pt RN. Pt is from home and is currently requiring oxygen. PT/OT recommended home independent. Pt has no home oxygen. COVID19 negative. SS will continue to follow for discharge planning.
--- NOTE | 2020-06-03 11:13 | PDOC ---
PULMONARY PROGRESS NOTES DATE: 06/03/20 TIME: 11:10 Subjective on nasal canula no soa Vitals Vital Signs Date Time Temp Pulse Resp B/P (MAP) Pulse Ox O2 Delivery O2 Flow Rate FiO2 06/03/20 10:00 89 107/56 (73) 96 Nasal Cannula 4.0 06/03/20 07:00 98.4 98.4 06/03/20 06:00 20 General: Alert, No acute distress Lungs: Crackles (right base) Cardiovascular: S1 Abdomen: Soft, Non-tender Extremities: No Edema Skin: Warm Labs Laboratory Tests Test 06/01/20 16:15 06/01/20 21:09 06/01/20 21:45 06/02/20 04:45 Coronavirus (COVID-19)(PCR) Negative (NEGATIVE) SARS-CoV-2 Antigen (Rapid) Negative (NEGATIVE) Glucose (Fingerstick) 168 mg/dL (70-99) White Blood Count 26.4 x10^3/uL (4.0-11.0) 27.1 x10^3/uL (4.0-11.0) Red Blood Count 4.54 x10^6/uL (3.50-5.40) 4.34 x10^6/uL (3.50-5.40) Hemoglobin 10.4 g/dL (12.0-15.5) 9.9 g/dL (12.0-15.5) Hematocrit 33.5 % (36.0-47.0) 32.0 % (36.0-47.0) Mean Corpuscular Volume 74 fL (79-100) 74 fL (79-100) Mean Corpuscular Hemoglobin 23 pg (25-35) 23 pg (25-35) Mean Corpuscular Hemoglobin Concent 31 g/dL (31-37) 31 g/dL (31-37) Red Cell Distribution Width 27.4 % (11.5-14.5) 27.3 % (11.5-14.5) Platelet Count 371 x10^3/uL (140-400) 334 x10^3/uL (140-400) Sodium Level 136 mmol/L (136-145) 138 mmol/L (136-145) Potassium Level 3.9 mmol/L (3.5-5.1) 4.1 mmol/L (3.5-5.1) Chloride Level 101 mmol/L (98-107) 103 mmol/L (98-107) Carbon Dioxide Level 26 mmol/L (21-32) 24 mmol/L (21-32) Anion Gap 9 (6-14) 11 (6-14) Blood Urea Nitrogen 26 mg/dL (7-20) 24 mg/dL (7-20) Creatinine 0.9 mg/dL (0.6-1.0) 0.9 mg/dL (0.6-1.0) Estimated GFR (Cockcroft-Gault) 62.1 62.1 Glucose Level 169 mg/dL (70-99) 148 mg/dL (70-99) Calcium Level 7.7 mg/dL (8.5-10.1) 7.7 mg/dL (8.5-10.1) Neutrophils (%) (Auto) 85 % (31-73) Lymphocytes (%) (Auto) 9 % (24-48) Monocytes (%) (Auto) 5 % (0-9) Eosinophils (%) (Auto) 0 % (0-3) Basophils (%) (Auto) 0 % (0-3) Neutrophils # (Auto) 23.0 x10^3/uL (1.8-7.7) Lymphocytes # (Auto) 2.5 x10^3/uL (1.0-4.8) Monocytes # (Auto) 1.5 x10^3/uL (0.0-1.1) Eosinophils # (Auto) 0.0 x10^3/uL (0.0-0.7) Basophils # (Auto) 0.1 x10^3/uL (0.0-0.2) Heparin Anti-Xa Act, Unfractionated 0.11 IU/mL (0.30-0.70) BUN/Creatinine Ratio 27 (6-20) Magnesium Level 1.8 mg/dL (1.8-2.4) Total Bilirubin 1.0 mg/dL (0.2-1.0) Aspartate Amino Transf (AST/SGOT) 54 U/L (15-37) Alanine Aminotransferase (ALT/SGPT) 69 U/L (14-59) Alkaline Phosphatase 102 U/L (46-116) Troponin I Quantitative 0.090 ng/mL (0.000-0.055) SR-Fvc-[id number]-Type Natriuretic Peptide 23103 pg/mL (0-124) Total Protein 5.8 g/dL (6.4-8.2) Albumin 2.7 g/dL (3.4-5.0) Albumin/Globulin Ratio 0.9 (1.0-1.7) Test 06/02/20 12:00 06/02/20 17:51 06/03/20 05:40 Heparin Anti-Xa Act, Unfractionated 0.31 IU/mL (0.30-0.70) 0.41 IU/mL (0.30-0.70) 0.28 IU/mL (0.30-0.70) White Blood Count 19.0 x10^3/uL (4.0-11.0) Red Blood Count 3.72 x10^6/uL (3.50-5.40) Hemoglobin 8.6 g/dL (12.0-15.5) Hematocrit 27.7 % (36.0-47.0) Mean Corpuscular Volume 75 fL (79-100) Mean Corpuscular Hemoglobin 23 pg (25-35) Mean Corpuscular Hemoglobin Concent 31 g/dL (31-37) Red Cell Distribution Width 28.1 % (11.5-14.5) Platelet Count 267 x10^3/uL (140-400) Neutrophils (%) (Auto) 81 % (31-73) Lymphocytes (%) (Auto) 11 % (24-48) Monocytes (%) (Auto) 7 % (0-9) Eosinophils (%) (Auto) 0 % (0-3) Basophils (%) (Auto) 0 % (0-3) Neutrophils # (Auto) 15.3 x10^3/uL (1.8-7.7) Lymphocytes # (Auto) 2.2 x10^3/uL (1.0-4.8) Monocytes # (Auto) 1.4 x10^3/uL (0.0-1.1) Eosinophils # (Auto) 0.0 x10^3/uL (0.0-0.7) Basophils # (Auto) 0.1 x10^3/uL (0.0-0.2) Sodium Level 139 mmol/L (136-145) Potassium Level 3.6 mmol/L (3.5-5.1) Chloride Level 105 mmol/L (98-107) Carbon Dioxide Level 28 mmol/L (21-32) Anion Gap 6 (6-14) Blood Urea Nitrogen 16 mg/dL (7-20) Creatinine 0.7 mg/dL (0.6-1.0) Estimated GFR (Cockcroft-Gault) 83.0 Glucose Level 111 mg/dL (70-99) Calcium Level 7.4 mg/dL (8.5-10.1) Laboratory Tests Test 06/02/20 12:00 06/02/20 17:51 06/03/20 05:40 Heparin Anti-Xa Act, Unfractionated 0.31 IU/mL (0.30-0.70) 0.41 IU/mL (0.30-0.70) 0.28 IU/mL (0.30-0.70) White Blood Count 19.0 x10^3/uL (4.0-11.0) Red Blood Count 3.72 x10^6/uL (3.50-5.40) Hemoglobin 8.6 g/dL (12.0-15.5) Hematocrit 27.7 % (36.0-47.0) Mean Corpuscular Volume 75 fL (79-100) Mean Corpuscular Hemoglobin 23 pg (25-35) Mean Corpuscular Hemoglobin Concent 31 g/dL (31-37) Red Cell Distribution Width 28.1 % (11.5-14.5) Platelet Count 267 x10^3/uL (140-400) Neutrophils (%) (Auto) 81 % (31-73) Lymphocytes (%) (Auto) 11 % (24-48) Monocytes (%) (Auto) 7 % (0-9) Eosinophils (%) (Auto) 0 % (0-3) Basophils (%) (Auto) 0 % (0-3) Neutrophils # (Auto) 15.3 x10^3/uL (1.8-7.7) Lymphocytes # (Auto) 2.2 x10^3/uL (1.0-4.8) Monocytes # (Auto) 1.4 x10^3/uL (0.0-1.1) Eosinophils # (Auto) 0.0 x10^3/uL (0.0-0.7) Basophils # (Auto) 0.1 x10^3/uL (0.0-0.2) Sodium Level 139 mmol/L (136-145) Potassium Level 3.6 mmol/L (3.5-5.1) Chloride Level 105 mmol/L (98-107) Carbon Dioxide Level 28 mmol/L (21-32) Anion Gap 6 (6-14) Blood Urea Nitrogen 16 mg/dL (7-20) Creatinine 0.7 mg/dL (0.6-1.0) Estimated GFR (Cockcroft-Gault) 83.0 Glucose Level 111 mg/dL (70-99) Calcium Level 7.4 mg/dL (8.5-10.1) Medications Active Scripts Medications Dose Route/Sig Max Daily Dose Days Date Category Feosol (Ferrous Sulfate) 325 Mg Tablet 325 Mg PO BID 90 05/31/20 Rx Potassium Chloride 20 Meq Tablet.er 20 Meq PO AFTRNOON 30 12/19/19 Rx Aspirin Ec (Aspirin) 325 Mg Tablet. 325 Mg PO DAILYWBKFT 90 12/19/19 Rx Protonix (Pantoprazole Sodium) 20 Mg Tablet.dr 40 Mg PO DAILY 02/20/19 Reported Actos (Pioglitazone Hcl) 30 Mg Tablet 30 Mg PO DAILY 01/25/19 Reported Pravastatin Sodium 20 Mg Tablet 20 Mg PO QHS 07/02/16 Reported Allopurinol 100 Mg Tablet 300 Mg PO DAILY 11/20/15 Reported Cymbalta (Duloxetine Hcl) 60 Mg Capsule.dr 60 Mg PO DAILY 11/20/15 Reported Comments cxr diffuse interstitial infilt Impression . 1. Acute respiratory failure, expected multifactorial in etiology. 2. Abnormal chest x-ray and CT of the chest. 3. Chronic obstructive pulmonary disease. 4. Tobacco habituation. 5. Acute mesenteric ischemia, status post exploratory laparotomy, superior mesenteric artery thrombectomy, extensive lysis, postop day #2. 6. Hypertension. 7. Hyperlipidemia. 8. Coronary artery disease. 9. recent anemia Plan . 1. Titrate FiO2 to keep O2 saturation 92%. 2. Continue bronchodilator. 3. Pulmicort b.i.d. 4. incentive spirometer, to use multiple times an hour. 5. She does have bilateral infiltrate, right more than left and bilateral small effusion, right more than left. suspect CHF. 6. troponin and BNP. 7. I will do CT of the chest, follow up pulmonary nodules.later 8. Heparin drip per vascular surgeons. 9. Protonix for stress ulcer prophylaxis. 10. I had a long discussion with her regarding smoking cessation. I have advised her to stop smoking forever. 11. We will monitor her very closely in ICU. 12. The findings and recommendations were discussed with the patient and RN. PANCHO RIVERA MD Jun 03, 2020 11:13
[2020-06-03] MEDS ORDERED: FUROSEMIDE 20 MG/2 ML VIAL. IVP ONE (11:15)
--- NOTE | 2020-06-03 11:26 | PDOC2 ---
CONSULT Date of Consult Date of Consult DATE: 06/03/20 TIME: 11:25 Reason for Consult Reason for Consult: Evaluation for hypercoagulable syndromes Referring Physician Referring Physician: Dr. Jean Identification/Chief Complaint Chief Complaint Abdominal pain Problems: (1) Superior mesenteric artery thrombosis (2) Anemia Source Source: Chart review, Patient History of Present Illness Reason for Visit: Irene Bautista is a 69-year-old female with history of tobacco use, peripheral vascular disease, and recent medical history notable for superior mesenteric artery occlusive disease. In November 2019, she underwent a supraceliac aortic to superior mesenteric artery and hepatic artery bypass graft. She presented on 06/01/2020 with acute onset of abdominal pain that developed suddenly and radiated to all 4 quadrants. She was admitted to the hospital for further evaluation and management. She underwent a CT scan with IV contrast of her abdomen and pelvis, which shows complete thrombosis of her mesenteric artery bypass graft. There are no signs of bowel ischemia on this CAT scan. There is suggestion of possible left kidney infarct. She was taken to the operating room by Dr. Pinto emergently for exploratory laparotomy and removal of superior mesenteric artery graft thrombosis. She reports improvement in abdominal pain since then. She remains on a heparin infusion at the time of my evaluation. Review of her medical history shows that she had previously received stent placement with thrombosis of stent earlier in 2019. Graft placement was performed in November 2019. Patient denies a history of venous thrombosis or pulmonary embolism. She does report a history of bilateral lower extremity peripheral vascular disease that has required stent placement. She denies a family history of blood disorders or thrombosis. She does smoke 1 pack/day. Past Medical History Cardiovascular: HTN, Hyperlipidemia, Other Pulmonary: COPD GI: GI bleed, Peptic Ulcer disease Endocrine: Diabetes Past Surgical History Past Surgical History: Hernia Repair, Other Family History Family History: No Significant, Hypertension Social History <1 pack per day ALCOHOL: occassional Drugs: None Lives: with Family Current Problem List Problem List Problems Medical Problems: (1) Acute PN (pyelonephritis) Status: Acute (2) Periumbilical pain Status: Acute Current Medications Current Medications Current Medications Sodium Chloride 500 ml @ 500 mls/hr 1X ONCE IV Last administered on 06/01/20at 04:25; Start 06/01/20 at 04:15; Stop 06/01/20 at 05:14; Status DC Ondansetron HCl (Zofran) 4 mg 1X ONCE IVP Last administered on 06/01/20at 04:25; Start 06/01/20 at 04:15; Stop 06/01/20 at 04:16; Status DC Hydromorphone HCl (Dilaudid) 0.5 mg 1X ONCE IV Last administered on 06/01/20at 04:26; Start 06/01/20 at 04:15; Stop 06/01/20 at 04:16; Status DC Iohexol (Omnipaque 300 Mg/ml) 75 ml 1X ONCE IV Last administered on 06/01/20at 05:14; Start 06/01/20 at 05:00; Stop 06/01/20 at 05:01; Status DC Info (CONTRAST GIVEN -- Rx MONITORING) 1 each PRN DAILY PRN MC SEE COMMENTS; Start 06/01/20 at 05:00; Stop 06/03/20 at 04:59; Status DC Ceftriaxone Sodium (Rocephin) 2 gm 1X ONCE IVP Last administered on 06/01/20at 07:23; Start 06/01/20 at 06:45; Stop 06/01/20 at 06:46; Status DC Fentanyl Citrate (Fentanyl 2ml Vial) 50 mcg PRN Q1HR PRN IV PAIN Last administered on 06/01/20at 13:32; Start 06/01/20 at 06:45; Stop 06/02/20 at 06:44; Status DC Sodium Chloride 1,000 ml @ 125 mls/hr Q8H IV Last administered on 06/01/20at 07:22; Start 06/01/20 at 06:45; Stop 06/01/20 at 22:03; Status DC Piperacillin Sod/ Tazobactam Sod 3.375 gm/Sodium Chloride 50 ml @ 100 mls/hr Q6HRS IV Last administered on 06/03/20at 06:28; Start 06/01/20 at 12:30 Sodium Chloride (Normal Saline Flush) 3 ml QSHIFT PRN IV AFTER MEDS AND BLOOD DRAWS; Start 06/01/20 at 12:30 Sodium Chloride 1,000 ml @ 85 mls/hr [id number] IV ; Start 06/01/20 at 12:21; Stop 06/01/20 at 12:37; Status DC Ondansetron HCl (Zofran) 4 mg PRN Q4HRS PRN IV NAUSEA/VOMITING; Start 06/01/20 at 12:30 Acetaminophen (Tylenol) 650 mg PRN Q4HRS PRN PO TEMP OVER 100.4F; Start 06/01/20 at 12:30 Al Hydroxide/Mg Hydroxide (Mylanta Plus Xs) 30 ml PRN DAILY PRN PO HEARTBURN / GAS; Start 06/01/20 at 12:30 Clonidine HCl (Catapres) 0.1 mg PRN Q6HRS PRN PO SBP>160 OR DBP>90; Start 06/01/20 at 12:30 Sodium Monofluorophosphate (Fleet Adult) 133 ml PRN DAILY PRN DC CONSTIPATION; Start 06/01/20 at 12:30 Docusate Sodium (Colace) 100 mg PRN BID PRN PO HARD STOOLS; Start 06/01/20 at 12:30 Albuterol/ Ipratropium (Duoneb) 3 ml Q4HRS W/A NEB Last administered on 06/03/20at 08:25; Start 06/01/20 at 14:00 Guaifenesin (Robitussin) 200 mg PRN Q4HRS PRN PO COUGH; Start 06/01/20 at 12:30 Enoxaparin Sodium (Lovenox 40mg Syringe) 40 mg Q24H SQ ; Start 06/01/20 at 12:30; Stop 06/01/20 at 13:03; Status DC Allopurinol (Zyloprim) 300 mg DAILY PO Last administered on 06/02/20at 09:25; Start 06/01/20 at 13:00 Aspirin (Ecotrin) 325 mg DAILYWBKFT PO Last administered on 06/02/20at 09:25; Start 06/01/20 at 13:00 Ferrous Sulfate (Feosol) 325 mg BIDWMEALS PO Last administered on 06/02/20at 16:46; Start 06/01/20 at 17:00 Duloxetine HCl (Cymbalta) 60 mg DAILY PO Last administered on 06/02/20at 09:28; Start 06/01/20 at 13:00 Pantoprazole Sodium (Protonix) 40 mg DAILYAC PO Last administered on 06/02/20at 09:25; Start 06/01/20 at 16:30 Potassium Chloride (Klor-Con) 20 meq DAILY@1300 PO Last administered on 06/02/20at 12:33; Start 06/01/20 at 13:00 Atorvastatin Calcium (Lipitor) 5 mg QHS PO Last administered on 06/02/20at 20:18; Start 06/01/20 at 21:00 Enoxaparin Sodium (Lovenox 80mg Syringe) 80 mg Q12HR SQ ; Start 06/01/20 at 13:15; Stop 06/01/20 at 20:18; Status DC Lactobacillus Rhamnosus (Culturelle) 1 cap BID PO Last administered on 06/02/20at 09:25; Start 06/01/20 at 21:00 Sevoflurane (Ultane) 90 ml STK-MED ONCE IH ; Start 06/01/20 at 16:50; Stop 06/01/20 at 16:51; Status DC Succinylcholine Chloride (Anectine) 200 mg STK-MED ONCE .ROUTE ; Start 06/01/20 at 16:51; Stop 06/01/20 at 16:51; Status DC Neostigmine Quincy (Neostigmine Methylsulfate) 5 mg STK-MED ONCE .ROUTE ; Start 06/01/20 at 16:51; Stop 06/01/20 at 16:51; Status DC Rocuronium Quincy (Zemuron) 50 mg STK-MED ONCE .ROUTE ; Start 06/01/20 at 16:51; Stop 06/01/20 at 16:51; Status DC Fentanyl Citrate (Fentanyl 2ml Vial) 100 mcg STK-MED ONCE .ROUTE ; Start 06/01/20 at 16:51; Stop 06/01/20 at 16:51; Status DC Midazolam HCl (Versed) 2 mg STK-MED ONCE .ROUTE ; Start 06/01/20 at 16:51; Stop 06/01/20 at 16:52; Status DC Glycopyrrolate (Robinul) 1 mg STK-MED ONCE .ROUTE ; Start 06/01/20 at 16:51; Stop 06/01/20 at 16:52; Status DC Heparin Sodium (Porcine) (Heparin Sodium) 10,000 unit STK-MED ONCE .ROUTE ; Start 06/01/20 at 16:52; Stop 06/01/20 at 16:52; Status DC Dexamethasone Sodium Phosphate (Decadron) 4 mg STK-MED ONCE .ROUTE ; Start 06/01/20 at 16:52; Stop 06/01/20 at 16:52; Status DC Dexamethasone Sodium Phosphate (Decadron) 4 mg STK-MED ONCE .ROUTE ; Start 06/01/20 at 16:52; Stop 06/01/20 at 16:52; Status DC Ondansetron HCl (Zofran) 4 mg STK-MED ONCE .ROUTE ; Start 06/01/20 at 16:52; Stop 06/01/20 at 16:52; Status DC Lidocaine HCl (Lidocaine Pf 2% Vial) 5 ml STK-MED ONCE .ROUTE ; Start 06/01/20 at 16:52; Stop 06/01/20 at 16:52; Status DC Propofol (Diprivan) 200 mg STK-MED ONCE IV ; Start 06/01/20 at 16:52; Stop 06/01/20 at 16:53; Status DC Phenylephrine HCl (PHENYLEPHRINE in 0.9% NACL PF) 1 mg STK-MED ONCE IV ; Start 06/01/20 at 16:54; Stop 06/01/20 at 16:55; Status DC Cefazolin Sodium 1 gm/Sodium Chloride 500 ml @ 500 mls/hr 1X ONCE IRR Last administered on 06/01/20at 18:22; Start 06/01/20 at 17:30; Stop 06/01/20 at 18:29; Status DC Heparin Sodium (Porcine) 5000 unit/Sodium Chloride 505 ml @ 505 mls/hr 1X ONCE IRR Last administered on 06/01/20at 18:22; Start 06/01/20 at 17:30; Stop 06/01/20 at 18:29; Status DC Lidocaine HCl (Xylocaine-Mpf 1% 2ml Vial) 2 ml STK-MED ONCE .ROUTE ; Start 06/01/20 at 17:34; Stop 06/01/20 at 17:35; Status DC Heparin Sodium (Porcine) (Heparin Sodium) 10,000 unit STK-MED ONCE .ROUTE ; Start 06/01/20 at 17:45; Stop 06/01/20 at 17:45; Status DC Cellulose (Surgicel Fibrillar 1x2) 1 each STK-MED ONCE .ROUTE Last administered on 06/01/20at 18:22; Start 06/01/20 at 17:45; Stop 06/01/20 at 17:45; Status DC Fentanyl Citrate (Fentanyl 2ml Vial) 100 mcg STK-MED ONCE .ROUTE ; Start 06/01/20 at 18:42; Stop 06/01/20 at 18:43; Status DC Rocuronium Quincy (Zemuron) 50 mg STK-MED ONCE .ROUTE ; Start 06/01/20 at 19:11; Stop 06/01/20 at 19:11; Status DC Fentanyl Citrate (Fentanyl 2ml Vial) 100 mcg STK-MED ONCE .ROUTE ; Start 06/01/20 at 19:24; Stop 06/01/20 at 19:25; Status DC Ondansetron HCl (Zofran) 4 mg PRN Q6HRS PRN IV NAUSEA/VOMITING; Start 06/01/20 at 19:45; Stop 06/02/20 at 09:02; Status DC Fentanyl Citrate (Fentanyl 2ml Vial) 25 mcg PRN Q5MIN PRN IV MILD PAIN 1-3; Start 06/01/20 at 19:45; Stop 06/02/20 at 09:02; Status DC Fentanyl Citrate (Fentanyl 2ml Vial) 50 mcg PRN Q5MIN PRN IV MODERATE TO SEVERE PAIN Last administered on 06/01/20at 21:46; Start 06/01/20 at 19:45; Stop 06/02/20 at 09:02; Status DC Morphine Sulfate (Morphine Sulfate) 1 mg PRN Q10MIN PRN IV SEVERE PAIN 7-10 Last administered on 06/01/20at 22:32; Start 06/01/20 at 19:45; Stop 06/02/20 at 09:02; Status DC Ringer's Solution 1,000 ml @ 30 mls/hr Q24H IV ; Start 06/01/20 at 19:38; Stop 06/01/20 at 22:04; Status DC Lidocaine HCl (Xylocaine-Mpf 1% 2ml Vial) 2 ml PRN 1X PRN ID PRIOR TO IV START; Start 06/01/20 at 19:45; Stop 06/02/20 at 09:02; Status DC Hydromorphone HCl (Dilaudid) 0.5 mg PRN Q10MIN PRN IV SEV PAIN, Second choice; Start 06/01/20 at 19:45; Stop 06/02/20 at 09:02; Status DC Prochlorperazine Edisylate (Compazine) 5 mg PACU PRN PRN IV NAUSEA, MRX1; Start 06/01/20 at 19:45; Stop 06/02/20 at 09:02; Status DC Heparin Sodium/ Dextrose 250 ml @ 12.144 mls/ hr CONT PRN IV PER PROTOCOL Last administered on 06/02/20at 20:10; Start 06/01/20 at 21:00 Heparin Sodium (Porcine) (Heparin Sodium) 2,300 unit PRN Q6HRS PRN IV FOR UFH LEVEL LESS THAN 0.2; Start 06/01/20 at 20:30; Stop 06/02/20 at 06:44; Status DC Heparin Sodium (Porcine) (Heparin Sodium) 1,150 unit PRN Q6HRS PRN IV FOR UFH LEVEL 0.2 - 0.29; Start 06/01/20 at 20:30; Stop 06/02/20 at 06:44; Status DC Info (Anti-Coagulation Monitoring By Pharmacy) 1 each PRN DAILY PRN MC SEE COMMENTS Last administered on 06/03/20at 10:05; Start 06/01/20 at 20:30 Sodium Chloride 1,000 ml @ 125 mls/hr CONT IV ; Start 06/01/20 at 22:00; Status UNV Sodium Chloride 1,000 ml @ 100 mls/hr Q10H IV Last administered on 06/03/20at 02:57; Start 06/01/20 at 22:00 Morphine Sulfate (Morphine Sulfate) 2 mg PRN Q2HR PRN IV PAIN Last administered on 06/03/20at 02:54; Start 06/02/20 at 00:00 Budesonide (Pulmicort) 0.5 mg RTBID NEB Last administered on 06/03/20at 08:25; Start 06/02/20 at 08:00 Pantoprazole Sodium (PROTONIX VIAL for IV PUSH) 40 mg DAILYAC IVP ; Start 06/03/20 at 11:30 Furosemide (Lasix) 20 mg 1X ONCE IVP ; Start 06/03/20 at 11:15; Stop 06/03/20 at 11:17; Status DC Active Scripts Active Feosol (Ferrous Sulfate) 325 Mg Tablet 325 Mg PO BID 90 Days Potassium Chloride 20 Meq Tablet.er 20 Meq PO AFTRNOON 30 Days Aspirin Ec (Aspirin) 325 Mg Tablet.dr 325 Mg PO DAILYWBKFT 90 Days Reported Protonix (Pantoprazole Sodium) 20 Mg Tablet.dr 40 Mg PO DAILY Actos (Pioglitazone Hcl) 30 Mg Tablet 30 Mg PO DAILY Pravastatin Sodium 20 Mg Tablet 20 Mg PO QHS Allopurinol 100 Mg Tablet 300 Mg PO DAILY Cymbalta (Duloxetine Hcl) 60 Mg Capsule.dr 60 Mg PO DAILY Allergies Allergies: Coded Allergies: shrimp (Verified Allergy, Intermediate, Rash, 12/12/19) ROS General: No: Chills, Night Sweats PSYCHOLOGICAL ROS: No: Anxiety, Behavioral Disorder Eyes: No Blurry vision, No Decreased vision HEENT: No: Heacaches, Oral lesions ALLERGY AND IMMUNOLOGY: No: Nasal Congestion, Post Nasal Drip Hematological and Lymphatic: No: Bleeding Problems, Brusing ENDOCRINE: No: Malaise/lethargy, Mood Swings Breast: No New/Changing Breast Lumps, No Nipple changes Respiratory: No: Cough, Hemoptysis Cardiovascular: No Chest Pain, No Palpitations Gastrointestinal: No Nausea Genitourinary: No Flank Pain Musculoskeletal: No Joint Pain Neurological: No Confusion Skin: No Rash Physical Exam General: Alert, Oriented X3 HEENT: Atraumatic, PERRLA Lungs: Clear to auscultation Heart: Regular rate, Normal S1, Normal S2 Abdomen: Normal bowel sounds, Soft Extremities: No clubbing, No cyanosis Skin: No rashes Neuro: Other (No grossly evident focal neurologic deficits. Full neurological exam was not performed) Psych/Mental Status: Mental status NL MUSCULOSKELETAL: No joint tenderness, No swelling Vitals VITALS Vital Signs Date Time Temp Pulse Resp B/P (MAP) Pulse Ox O2 Delivery O2 Flow Rate FiO2 06/03/20 11:00 92 115/57 (76) 95 Nasal Cannula 2.0 06/03/20 07:00 98.4 98.4 06/03/20 06:00 20 Labs Labs Laboratory Tests Test 06/01/20 16:15 06/01/20 21:09 06/01/20 21:45 06/02/20 04:45 Coronavirus (COVID-19)(PCR) Negative (NEGATIVE) SARS-CoV-2 Antigen (Rapid) Negative (NEGATIVE) Glucose (Fingerstick) 168 mg/dL (70-99) White Blood Count 26.4 x10^3/uL (4.0-11.0) 27.1 x10^3/uL (4.0-11.0) Red Blood Count 4.54 x10^6/uL (3.50-5.40) 4.34 x10^6/uL (3.50-5.40) Hemoglobin 10.4 g/dL (12.0-15.5) 9.9 g/dL (12.0-15.5) Hematocrit 33.5 % (36.0-47.0) 32.0 % (36.0-47.0) Mean Corpuscular Volume 74 fL (79-100) 74 fL (79-100) Mean Corpuscular Hemoglobin 23 pg (25-35) 23 pg (25-35) Mean Corpuscular Hemoglobin Concent 31 g/dL (31-37) 31 g/dL (31-37) Red Cell Distribution Width 27.4 % (11.5-14.5) 27.3 % (11.5-14.5) Platelet Count 371 x10^3/uL (140-400) 334 x10^3/uL (140-400) Sodium Level 136 mmol/L (136-145) 138 mmol/L (136-145) Potassium Level 3.9 mmol/L (3.5-5.1) 4.1 mmol/L (3.5-5.1) Chloride Level 101 mmol/L (98-107) 103 mmol/L (98-107) Carbon Dioxide Level 26 mmol/L (21-32) 24 mmol/L (21-32) Anion Gap 9 (6-14) 11 (6-14) Blood Urea Nitrogen 26 mg/dL (7-20) 24 mg/dL (7-20) Creatinine 0.9 mg/dL (0.6-1.0) 0.9 mg/dL (0.6-1.0) Estimated GFR (Cockcroft-Gault) 62.1 62.1 Glucose Level 169 mg/dL (70-99) 148 mg/dL (70-99) Calcium Level 7.7 mg/dL (8.5-10.1) 7.7 mg/dL (8.5-10.1) Neutrophils (%) (Auto) 85 % (31-73) Lymphocytes (%) (Auto) 9 % (24-48) Monocytes (%) (Auto) 5 % (0-9) Eosinophils (%) (Auto) 0 % (0-3) Basophils (%) (Auto) 0 % (0-3) Neutrophils # (Auto) 23.0 x10^3/uL (1.8-7.7) Lymphocytes # (Auto) 2.5 x10^3/uL (1.0-4.8) Monocytes # (Auto) 1.5 x10^3/uL (0.0-1.1) Eosinophils # (Auto) 0.0 x10^3/uL (0.0-0.7) Basophils # (Auto) 0.1 x10^3/uL (0.0-0.2) Heparin Anti-Xa Act, Unfractionated 0.11 IU/mL (0.30-0.70) BUN/Creatinine Ratio 27 (6-20) Magnesium Level 1.8 mg/dL (1.8-2.4) Total Bilirubin 1.0 mg/dL (0.2-1.0) Aspartate Amino Transf (AST/SGOT) 54 U/L (15-37) Alanine Aminotransferase (ALT/SGPT) 69 U/L (14-59) Alkaline Phosphatase 102 U/L (46-116) Troponin I Quantitative 0.090 ng/mL (0.000-0.055) ZK-Qcf-T-Type Natriuretic Peptide 29281 pg/mL (0-124) Total Protein 5.8 g/dL (6.4-8.2) Albumin 2.7 g/dL (3.4-5.0) Albumin/Globulin Ratio 0.9 (1.0-1.7) Test 06/02/20 12:00 06/02/20 17:51 06/03/20 05:40 Heparin Anti-Xa Act, Unfractionated 0.31 IU/mL (0.30-0.70) 0.41 IU/mL (0.30-0.70) 0.28 IU/mL (0.30-0.70) White Blood Count 19.0 x10^3/uL (4.0-11.0) Red Blood Count 3.72 x10^6/uL (3.50-5.40) Hemoglobin 8.6 g/dL (12.0-15.5) Hematocrit 27.7 % (36.0-47.0) Mean Corpuscular Volume 75 fL (79-100) Mean Corpuscular Hemoglobin 23 pg (25-35) Mean Corpuscular Hemoglobin Concent 31 g/dL (31-37) Red Cell Distribution Width 28.1 % (11.5-14.5) Platelet Count 267 x10^3/uL (140-400) Neutrophils (%) (Auto) 81 % (31-73) Lymphocytes (%) (Auto) 11 % (24-48) Monocytes (%) (Auto) 7 % (0-9) Eosinophils (%) (Auto) 0 % (0-3) Basophils (%) (Auto) 0 % (0-3) Neutrophils # (Auto) 15.3 x10^3/uL (1.8-7.7) Lymphocytes # (Auto) 2.2 x10^3/uL (1.0-4.8) Monocytes # (Auto) 1.4 x10^3/uL (0.0-1.1) Eosinophils # (Auto) 0.0 x10^3/uL (0.0-0.7) Basophils # (Auto) 0.1 x10^3/uL (0.0-0.2) Sodium Level 139 mmol/L (136-145) Potassium Level 3.6 mmol/L (3.5-5.1) Chloride Level 105 mmol/L (98-107) Carbon Dioxide Level 28 mmol/L (21-32) Anion Gap 6 (6-14) Blood Urea Nitrogen 16 mg/dL (7-20) Creatinine 0.7 mg/dL (0.6-1.0) Estimated GFR (Cockcroft-Gault) 83.0 Glucose Level 111 mg/dL (70-99) Calcium Level 7.4 mg/dL (8.5-10.1) Laboratory Tests Test 06/02/20 12:00 06/02/20 17:51 06/03/20 05:40 Heparin Anti-Xa Act, Unfractionated 0.31 IU/mL (0.30-0.70) 0.41 IU/mL (0.30-0.70) 0.28 IU/mL (0.30-0.70) White Blood Count 19.0 x10^3/uL (4.0-11.0) Red Blood Count 3.72 x10^6/uL (3.50-5.40) Hemoglobin 8.6 g/dL (12.0-15.5) Hematocrit 27.7 % (36.0-47.0) Mean Corpuscular Volume 75 fL (79-100) Mean Corpuscular Hemoglobin 23 pg (25-35) Mean Corpuscular Hemoglobin Concent 31 g/dL (31-37) Red Cell Distribution Width 28.1 % (11.5-14.5) Platelet Count 267 x10^3/uL (140-400) Neutrophils (%) (Auto) 81 % (31-73) Lymphocytes (%) (Auto) 11 % (24-48) Monocytes (%) (Auto) 7 % (0-9) Eosinophils (%) (Auto) 0 % (0-3) Basophils (%) (Auto) 0 % (0-3) Neutrophils # (Auto) 15.3 x10^3/uL (1.8-7.7) Lymphocytes # (Auto) 2.2 x10^3/uL (1.0-4.8) Monocytes # (Auto) 1.4 x10^3/uL (0.0-1.1) Eosinophils # (Auto) 0.0 x10^3/uL (0.0-0.7) Basophils # (Auto) 0.1 x10^3/uL (0.0-0.2) Sodium Level 139 mmol/L (136-145) Potassium Level 3.6 mmol/L (3.5-5.1) Chloride Level 105 mmol/L (98-107) Carbon Dioxide Level 28 mmol/L (21-32) Anion Gap 6 (6-14) Blood Urea Nitrogen 16 mg/dL (7-20) Creatinine 0.7 mg/dL (0.6-1.0) Estimated GFR (Cockcroft-Gault) 83.0 Glucose Level 111 mg/dL (70-99) Calcium Level 7.4 mg/dL (8.5-10.1) Images Images Reviewed results of CT angiography of the abdomen Assessment/Plan Assessment/Plan Assessment: 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 These are the most likely contributors to her presentation with recurrent mesenteric arterial thrombosis -However, would evaluate at this time for additional hypercoagulable syndromes that may be contributing to her presentation. Will check lupus anticoagulant, anti-beta-2 glycoprotein, anticardiolipin antibodies, protein C, protein S and Antithrombin III level while she is inpatient -Given severe microcytic anemia, will obtain iron studies as well as B12 level -Continue with heparin infusion per surgery recommendations -We will plan on follow-up with me post hospital discharge to discuss completion of evaluation for hypercoagulable syndromes -Unable to test for PNH, factor V leiden and prothrombin gene mutation while inpatient. Will assess after hospital discharge -Continue with risk modification for atherosclerotic vascular disease including statin, tobacco use cessation and antiplatelet agents. Consider dual antiplatelet therapy given recurrent thrombosis but I would defer to primary service and vascular surgery on this Osbaldo Miranda MD Medical Oncology/Hematology Ph: [phone] BRITTANY MIRANDA MD Jun 03, 2020 11:26
[2020-06-03] MEDS ORDERED: PANTOPRAZOLE IV PUSH 40 MG VIAL. IVP SCH (11:30)
--- NOTE | 2020-06-03 11:36 | PDOC ---
Renal-Progress Notes Subjective Notes Notes NONE History of Present Illness Hx of present illness STABLE Vitals Vitals Vital Signs Date Time Temp Pulse Resp B/P (MAP) Pulse Ox O2 Delivery O2 Flow Rate FiO2 06/03/20 11:00 92 115/57 (76) 95 Nasal Cannula 2.0 06/03/20 07:00 98.4 98.4 06/03/20 06:00 20 Weight Weight [ ] I.O. Intake and Output Intake and Output 06/03/20 07:00 Intake Total 2934.1 ml Output Total 1425 ml Balance 1509.1 ml IV Total 2934.1 ml Output Urine Total 1425 ml Labs Labs Laboratory Tests Test 06/02/20 12:00 06/02/20 17:51 06/03/20 05:40 Heparin Anti-Xa Act, Unfractionated 0.31 IU/mL (0.30-0.70) 0.41 IU/mL (0.30-0.70) 0.28 IU/mL (0.30-0.70) White Blood Count 19.0 x10^3/uL (4.0-11.0) Red Blood Count 3.72 x10^6/uL (3.50-5.40) Hemoglobin 8.6 g/dL (12.0-15.5) Hematocrit 27.7 % (36.0-47.0) Mean Corpuscular Volume 75 fL (79-100) Mean Corpuscular Hemoglobin 23 pg (25-35) Mean Corpuscular Hemoglobin Concent 31 g/dL (31-37) Red Cell Distribution Width 28.1 % (11.5-14.5) Platelet Count 267 x10^3/uL (140-400) Neutrophils (%) (Auto) 81 % (31-73) Lymphocytes (%) (Auto) 11 % (24-48) Monocytes (%) (Auto) 7 % (0-9) Eosinophils (%) (Auto) 0 % (0-3) Basophils (%) (Auto) 0 % (0-3) Neutrophils # (Auto) 15.3 x10^3/uL (1.8-7.7) Lymphocytes # (Auto) 2.2 x10^3/uL (1.0-4.8) Monocytes # (Auto) 1.4 x10^3/uL (0.0-1.1) Eosinophils # (Auto) 0.0 x10^3/uL (0.0-0.7) Basophils # (Auto) 0.1 x10^3/uL (0.0-0.2) Sodium Level 139 mmol/L (136-145) Potassium Level 3.6 mmol/L (3.5-5.1) Chloride Level 105 mmol/L (98-107) Carbon Dioxide Level 28 mmol/L (21-32) Anion Gap 6 (6-14) Blood Urea Nitrogen 16 mg/dL (7-20) Creatinine 0.7 mg/dL (0.6-1.0) Estimated GFR (Cockcroft-Gault) 83.0 Glucose Level 111 mg/dL (70-99) Calcium Level 7.4 mg/dL (8.5-10.1) Micro Micro Microbiology 06/01/20 Blood Culture - Preliminary, Resulted NO GROWTH AFTER 1 DAY Review of Systems Constitutional: yes: unresponsive Physical Exam General Appearance: no apparent distress Respiratory: bilateral CTA Abdomen: soft, bowel sounds present Extremities: pulses present Neurology: other (SEDATE) Assessment Assessment . IMP ? LEFT RENAL CORTICAL INFARCAT ACUTE RESP FAILURE COPD TOBACCOISM DIFFUSE ATHEROSCLEROSIS MESENTERIC ISCHEMIA-S/P SMA THROMBECTOY PLAN CR WNL POSSIBLE SHE MAY HAVE HAD A EMBOLI TO LEFT KIDNEY NO FURTHER W/U NOW SUGGEST A MAG RENAL SCAN AT LATER DATE WILL FOLLOW LANCE GREEN MD Jun 03, 2020 11:35
[2020-06-03] MEDS: HEPARIN 25,000UTS/250ML PREMIX 250 ML IV PRN (12:54)
[2020-06-03] MEDS: POTASSIUM CHLORIDE 20 MEQ TABLET.ER. PO SCH (13:00)
--- NOTE | 2020-06-03 15:31 | PDOC ---
Provider Note Date of Service: DATE: 06/03/20 TIME: 15:28 Provider Note Provider Note Vascular S: Patient is seen and examined in room. Minimal complaints of abdominal pain. No flatus O: AF VSS awake and alert abdomen soft, nondistended, nontender, incision dry and intact. + BS lower extremities warm with no edema neuro exam intact A/P POD#2 superior mesenteric artery thrombectomy for acute occlusion, no signs of bowel ischemia -Continue aspirin and Plavix, will transition to orals possibly tomorrow if we are able to advance diet and no signs of bleeding -Ice chips only -Hgb improved with transfusion -out of bed to chair, may ambulate, PT/OT consult -antibiotics per ID -Discontinue jackson catheter if ok with Nephrology Justicifation of Admission Dx: Justifications for Admission: Justification of Admission Dx: Yes Sepsis: Infection TIANNA RAMIRES DIRECTOR OF MARKETING [employer]NALYTICS Jun 03, 2020 15:30
--- NOTE | 2020-06-03 16:34 | RAD ---
Exam: CT of chest without contrast INDICATION: Follow-up pulmonary nodules TECHNIQUE: Sequential axial images through the chest obtained without IV contrast. Sagittal and coronal reformatted images were reconstructed from the axial data and reviewed. Comparisons: CT 05/15/2019 FINDINGS: Visualized portions of the thyroid are unremarkable. No enlarged mediastinal lymph nodes are identified. Heart is mildly enlarged. Small pericardial effusion. Mild coronary artery calcifications. Thoracic aorta has a normal course and caliber. Pulmonary artery is not enlarged. Mild bronchiectatic changes noted predominantly at the lung bases. Airways are patent. Mild centrilobular emphysematous change noted at the upper lungs. No consolidation or pneumothorax. Stable 2 mm nodule along the fissure series 3 image 174 on the right. Previously seen pulmonary nodule in the left lower lobe is no longer visualized, may be related to overlying airspace disease. Trace bilateral pleural effusions. There is atelectatic consolidative changes in the left lower lobe. There is a small amount of free air noted in the upper abdomen. No suspicious osseous lesions or acute fractures. IMPRESSION: 1. Atelectatic is consolidative changes at the dependent portion lungs bilaterally favored represent atelectasis rather than infectious process. 2. Trace bilateral pleural effusions. 3. Stable right ulnar nodule. The left pulmonary nodules not evaluated may be obscured by airspace disease. 4. Small amount of free air noted in the upper abdomen. When discussed with patient's nurse patient has recently had abdominal surgery which likely explains the finding. Correlate with symptomatology. Exposure: One or more of the following in the visualized dose reduction techniques were utilized for this examination: 1. Automated exposure control 2. Adjustment of the MA and/or KV according to patient size 3. Use of iterative of reconstructive technique FOR INTERNAL CODING PURPOSES Critical result: Findings discussed with patient's nurse at 06/03/2020 4:28 PM. RESULT CODE: (C) Electronically signed by: Miquel Disla MD (06/03/2020 4:30 PM) [id number]
[2020-06-03] MEDS: ATORVASTATIN CALCIUM 10 MG TABLET. PO SCH (20:40)
[2020-06-04] VITALS (12 sets, daily range): BP systolic 105–141; BP diastolic 54–69
[2020-06-04] MEDS: IPRATRPIUM/ALBUTEROL 0.5/2.5MG 3 ML NEBU. NEB SCH ×5 (00:13→20:24)
[2020-06-04] MEDS: PIPERACILLIN/TAZOBACTAM 3.375 GM in IV NORMAL SALINE 50ML 50 ML IV SCH ×3 (05:44→17:14)
[2020-06-04] MEDS: HEPARIN 25,000UTS/250ML PREMIX 250 ML IV PRN ×2 (05:50→22:25)
[2020-06-04 06:04] LABS: BASO % 0 % (0-3); EOS # 0.3 x10^3/uL (0.0-0.7); EOS % 2 % (0-3); HEMATOCRIT 25.7 % (36.0-47.0); HEMOGLOBIN 7.8 g/dL (12.0-15.5); LYMPH % 12 % (24-48); MEAN CORPUSCULAR HEMOGLOBIN 23 pg (25-35); MEAN CORPUSCULAR HGB CONC 31 g/dL (31-37); MEAN CORPUSCULAR VOLUME 75 fL (79-100); MONO # 1.3 x10^3/uL (0.0-1.1); MONO % 8 % (0-9); NEUT # 12.9 x10^3/uL (1.8-7.7); NEUT % 78 % (31-73); PLATELET COUNT 219 x10^3/uL (140-400); RED BLOOD COUNT 3.43 x10^6/uL (3.50-5.40); RED CELL DISTRIBUTION WIDTH 28.6 % (11.5-14.5); WHITE BLOOD COUNT 16.6 x10^3/uL (4.0-11.0)
[2020-06-04 06:09] LABS: CALCIUM 7.2 mg/dL (8.5-10.1); CREATININE 0.7 mg/dL (0.6-1.0); POTASSIUM 3.2 mmol/L (3.5-5.1)
[2020-06-04] MEDS: BUDESONIDE 0.5 MG/2 ML NEBU. NEB SCH ×2 (07:25→20:25)
--- NOTE | 2020-06-04 07:28 | PDOC ---
DATE OF SERVICE: DATE: 06/04/20 TIME: 07:26 GENERAL General: vss and afebrile. O2 at 2L/NC. awake and alert and slow decrease in abdominal pain. has passed flatus so expecting liquid diet today but not hungry. chest clear, heart regular, abdomen soft. CT chest without change pulmonary nodule, wbc decreased to 16K and Hb 7.8. encouraged increased activity. VITAL SIGNS/I&O Vital Signs/I&O: Vital Signs Date Time Temp Pulse Resp B/P (MAP) Pulse Ox O2 Delivery O2 Flow Rate FiO2 06/04/20 03:16 98.2 90 135/60 (85) 97 Nasal Cannula 2.0 98.2 I & O 06/03/20 06/03/20 06/04/20 15:00 23:00 07:00 Intake Total 200 ml 0 ml Output Total 485 ml 2800 ml 1000 ml Balance -485 ml -2600 ml -1000 ml ALLERGIES Allergies: Allergies Coded Allergies Type Severity Reaction Last Updated Verified shrimp Allergy Intermediate Rash 12/12/19 Yes MEDS Medications: Current Medications Medications (Trade) Dose Ordered Sig/Kira Route PRN Reason Start Time Stop Time Status Last Admin Dose Admin Pantoprazole Sodium (PROTONIX VIAL for IV PUSH) 40 mg DAILYAC IVP 06/03/20 11:30 06/03/20 12:06 Furosemide (Lasix) 20 mg 1X ONCE IVP 06/03/20 11:15 06/03/20 11:17 DC 06/03/20 12:07 LAB Lab: Laboratory Tests Test 06/03/20 11:51 06/03/20 19:24 06/04/20 05:45 Heparin Anti-Xa Act, Unfractionated 0.32 IU/mL (0.30-0.70) 0.39 IU/mL (0.30-0.70) 0.28 IU/mL (0.30-0.70) L White Blood Count 16.6 x10^3/uL (4.0-11.0) H Red Blood Count 3.43 x10^6/uL (3.50-5.40) L Hemoglobin 7.8 g/dL (12.0-15.5) L Hematocrit 25.7 % (36.0-47.0) L Mean Corpuscular Volume 75 fL (79-100) L Mean Corpuscular Hemoglobin 23 pg (25-35) L Mean Corpuscular Hemoglobin Concent 31 g/dL (31-37) Red Cell Distribution Width 28.6 % (11.5-14.5) H Platelet Count 219 x10^3/uL (140-400) Neutrophils (%) (Auto) 78 % (31-73) H Lymphocytes (%) (Auto) 12 % (24-48) L Monocytes (%) (Auto) 8 % (0-9) Eosinophils (%) (Auto) 2 % (0-3) Basophils (%) (Auto) 0 % (0-3) Neutrophils # (Auto) 12.9 x10^3/uL (1.8-7.7) H Lymphocytes # (Auto) 2.0 x10^3/uL (1.0-4.8) Monocytes # (Auto) 1.3 x10^3/uL (0.0-1.1) H Eosinophils # (Auto) 0.3 x10^3/uL (0.0-0.7) Basophils # (Auto) 0.0 x10^3/uL (0.0-0.2) Sodium Level 138 mmol/L (136-145) Potassium Level 3.2 mmol/L (3.5-5.1) L Chloride Level 103 mmol/L (98-107) Carbon Dioxide Level 29 mmol/L (21-32) Anion Gap 6 (6-14) Blood Urea Nitrogen 12 mg/dL (7-20) Creatinine 0.7 mg/dL (0.6-1.0) Estimated GFR (Cockcroft-Gault) 83.0 Glucose Level 86 mg/dL (70-99) Calcium Level 7.2 mg/dL (8.5-10.1) L Laboratory Tests 06/04/20 05:45 Laboratory Tests 06/04/20 05:45 Justicifation of Admission Dx: Justifications for Admission: Justification of Admission Dx: Yes Sepsis: Infection Nutrition Consultation Dietary Evaluation: Recommendations by RD: Dietary education by RD, Increase Calorie Intake, Protein supplementation Comments: REC advance diet as able within 24 - 48 hrs, diet per vacular per notes; recommend goal diet of cardiac/ADA REC Glucerna (chocolate) q day or more often per pt preference Expected Outcomes/Goals: diet advancement Interpretation of weight loss: >5% in 1 month Malnutrition Findings: Food and Nutrition Intake (Sev: <50% est energy req 5days Weight Status: Appropriate ANABEL MARTÍNEZ MD Jun 04, 2020 07:28
--- NOTE | 2020-06-04 08:29 | PDOC ---
Provider Note Date of Service: DATE: 06/04/20 TIME: 08:12 Provider Note Provider Note Vascular S: Patient is seen and examined in room. Denies any pain. +flatus O: AF VSS awake and alert abdomen soft, nondistended, nontender, incision dry and intact. + BS lower extremities warm with no edema neuro exam intact A/P POD#3 superior mesenteric artery thrombectomy for acute occlusion, no signs of bowel ischemia -Continue aspirin and Plavix, will transition to oral anticoagulation soon, continue to monitor Hgb, appreciate Hematology input -Advance to clear liquid diet -Replace potassium -up ad mukesh, PT/OT consult -antibiotics per ID Item Value Date Time Hemoglobin 7.8 g/dL L 06/04/20 0545 White Blood Count 16.6 x10^3/uL H 06/04/20 0545 Red Blood Count 3.43 x10^6/uL L 06/04/20 0545 Hematocrit 25.7 % L 06/04/20 0545 Mean Corpuscular Volume 75 fL L 06/04/20 0545 Mean Corpuscular Hemoglobin 23 pg L 06/04/20 0545 Platelet Count 219 x10^3/uL 06/04/20 0545 Sodium Level 138 mmol/L 06/04/20 0545 Potassium Level 3.2 mmol/L L 06/04/20 0545 Justicifation of Admission Dx: Justifications for Admission: Justification of Admission Dx: Yes Sepsis: Infection TIANNA RAMIRES [employer] Jun 04, 2020 08:29
--- NOTE | 2020-06-04 09:57 | PDOC ---
Date of Service: DATE: 06/04/20 TIME: 09:53 Subjective: Subjective: Tolerating clears, abdomen less sore, passing gas. Objective: Vital Signs: Vital Signs Date Time Temp Pulse Resp B/P (MAP) Pulse Ox O2 Delivery O2 Flow Rate FiO2 06/04/20 07:26 95 Nasal Cannula 2.0 06/04/20 07:00 98.2 84 16 133/60 (84) 98.2 Labs: Laboratory Tests Test 06/03/20 11:51 06/03/20 19:24 06/04/20 05:45 Heparin Anti-Xa Act, Unfractionated 0.32 IU/mL 0.39 IU/mL 0.28 IU/mL White Blood Count 16.6 x10^3/uL Red Blood Count 3.43 x10^6/uL Hemoglobin 7.8 g/dL Hematocrit 25.7 % Mean Corpuscular Volume 75 fL Mean Corpuscular Hemoglobin 23 pg Mean Corpuscular Hemoglobin Concent 31 g/dL Red Cell Distribution Width 28.6 % Platelet Count 219 x10^3/uL Neutrophils (%) (Auto) 78 % Lymphocytes (%) (Auto) 12 % Monocytes (%) (Auto) 8 % Eosinophils (%) (Auto) 2 % Basophils (%) (Auto) 0 % Neutrophils # (Auto) 12.9 x10^3/uL Lymphocytes # (Auto) 2.0 x10^3/uL Monocytes # (Auto) 1.3 x10^3/uL Eosinophils # (Auto) 0.3 x10^3/uL Basophils # (Auto) 0.0 x10^3/uL Sodium Level 138 mmol/L Potassium Level 3.2 mmol/L Chloride Level 103 mmol/L Carbon Dioxide Level 29 mmol/L Anion Gap 6 Blood Urea Nitrogen 12 mg/dL Creatinine 0.7 mg/dL Estimated GFR (Cockcroft-Gault) 83.0 Glucose Level 86 mg/dL Calcium Level 7.2 mg/dL PE: GEN: NAD LUNGS: CTAB HEART: RRR ABD: S/ND/NT NEURO/PSYCH: A & O 3 A/P: S/p SMA thrombectomy, REX, expl laparotomy 06/01/20 - on Heparin Chronic ELIDA - restarted PO iron last week, last 'scopes in 2019 GERD - on PPI -- Diet per vascular. Continue PPI and iron, transfuse as needed. Additional labs per heme/onc pending w/ plans to follow-up for additional testing as outpt. Justicifation of Admission Dx: Justifications for Admission: Justification of Admission Dx: Yes Sepsis: Infection ELDA HUTTON Jun 04, 2020 09:57
--- NOTE | 2020-06-04 10:31 | PDOC ---
Infectious Disease Note Subjective: Subjective Pt is alert awake says feels better Pain controlled Denies F/C/ N/V/sob/diarrhea Vital Signs: Vital Signs Vital Signs Date Time Temp Pulse Resp B/P (MAP) Pulse Ox O2 Delivery O2 Flow Rate FiO2 06/04/20 07:26 95 Nasal Cannula 2.0 06/04/20 07:00 98.2 84 16 133/60 (84) 98.2 Physical Exam: PHYSICAL EXAM GENERAL: Propped up in bed, awake, in NAD HENT: BRIDGER, Oropharynx pink dry. No lesions. + NGT NECK: Supple LUNGS: CTAB, nonlabored HEART: S1 and S2, irregular ABDOMEN: Some distention, BS quiet, soft, tender. 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, oriented x 3 RIJ (06/01) without signs of complications Medications: Inpatient Meds: Current Medications Medications (Trade) Dose Ordered Sig/Kira Start Time Stop Time Status Last Admin Dose Admin Acetaminophen (Tylenol) 650 mg PRN Q4HRS PRN 06/01/20 12:30 Al Hydroxide/Mg Hydroxide (Mylanta Plus Xs) 30 ml PRN DAILY PRN 06/01/20 12:30 Albuterol/ Ipratropium (Duoneb) 3 ml Q4HRS W/A 06/01/20 14:00 06/04/20 07:25 Allopurinol (Zyloprim) 300 mg DAILY 06/01/20 13:00 06/02/20 09:25 Aspirin (Ecotrin) 325 mg [id number] 06/01/20 13:00 06/02/20 09:25 Atorvastatin Calcium (Lipitor) 5 mg QHS 06/01/20 21:00 06/03/20 20:40 Budesonide (Pulmicort) 0.5 mg RTBID 06/02/20 08:00 06/04/20 07:25 Cefazolin Sodium 1 gm/Sodium Chloride 500 ml @ 500 mls/hr 1X ONCE 06/01/20 17:30 06/01/20 18:29 DC 06/01/20 18:22 Ceftriaxone Sodium (Rocephin) 2 gm 1X ONCE 06/01/20 06:45 06/01/20 06:46 DC 06/01/20 07:23 Cellulose (Surgicel Fibrillar 1x2) 1 each STK-MED ONCE 06/01/20 17:45 06/01/20 17:45 DC 06/01/20 18:22 Clonidine HCl (Catapres) 0.1 mg PRN Q6HRS PRN 06/01/20 12:30 Dexamethasone Sodium Phosphate (Decadron) 4 mg STK-MED ONCE 06/01/20 16:52 06/01/20 16:52 DC Docusate Sodium (Colace) 100 mg PRN BID PRN 06/01/20 12:30 Duloxetine HCl (Cymbalta) 60 mg DAILY 06/01/20 13:00 06/02/20 09:28 Enoxaparin Sodium (Lovenox 40mg Syringe) 40 mg Q24H 06/01/20 12:30 06/01/20 13:03 DC Enoxaparin Sodium (Lovenox 80mg Syringe) 80 mg Q12HR 06/01/20 13:15 06/01/20 20:18 DC Fentanyl Citrate (Fentanyl 2ml Vial) 50 mcg PRN Q5MIN PRN 06/01/20 19:45 06/02/20 09:02 DC 06/01/20 21:46 Ferrous Sulfate (Feosol) 325 mg BIDWMEALS 06/01/20 17:00 06/03/20 17:13 Furosemide (Lasix) 20 mg 1X ONCE 06/03/20 11:15 06/03/20 11:17 DC 06/03/20 12:07 Glycopyrrolate (Robinul) 1 mg STK-MED ONCE 06/01/20 16:51 06/01/20 16:52 DC Guaifenesin (Robitussin) 200 mg PRN Q4HRS PRN 06/01/20 12:30 Heparin Sodium (Porcine) (Heparin Sodium) 1,150 unit PRN Q6HRS PRN 06/01/20 20:30 06/02/20 06:44 DC Heparin Sodium (Porcine) 5000 unit/Sodium Chloride 505 ml @ 505 mls/hr 1X ONCE 06/01/20 17:30 06/01/20 18:29 DC 06/01/20 18:22 Heparin Sodium/ Dextrose 250 ml @ 12.144 mls/ hr CONT PRN 06/01/20 21:00 06/04/20 05:50 Hydromorphone HCl (Dilaudid) 0.5 mg PRN Q10MIN PRN 06/01/20 19:45 06/02/20 09:02 DC Info (Anti-Coagulation Monitoring By Pharmacy) 1 each PRN DAILY PRN 06/01/20 20:30 06/03/20 10:05 Info (CONTRAST GIVEN -- Rx MONITORING) 1 each PRN DAILY PRN 06/01/20 05:00 06/03/20 04:59 DC Iohexol (Omnipaque 300 Mg/ml) 75 ml 1X ONCE 06/01/20 05:00 06/01/20 05:01 DC 06/01/20 05:14 Lactobacillus Rhamnosus (Culturelle) 1 cap BID 06/01/20 21:00 06/03/20 20:40 Lidocaine HCl (Lidocaine Pf 2% Vial) 5 ml STK-MED ONCE 06/01/20 16:52 06/01/20 16:52 DC Lidocaine HCl (Xylocaine-Mpf 1% 2ml Vial) 2 ml PRN 1X PRN 06/01/20 19:45 06/02/20 09:02 DC Midazolam HCl (Versed) 2 mg STK-MED ONCE 06/01/20 16:51 06/01/20 16:52 DC Morphine Sulfate (Morphine Sulfate) 2 mg PRN Q2HR PRN 06/02/20 00:00 06/03/20 12:07 Neostigmine Cerrillos (Neostigmine Methylsulfate) 5 mg STK-MED ONCE 06/01/20 16:51 06/01/20 16:51 DC Ondansetron HCl (Zofran) 4 mg PRN Q6HRS PRN 06/01/20 19:45 06/02/20 09:02 DC Pantoprazole Sodium (PROTONIX VIAL for IV PUSH) 40 mg DAILYAC 06/03/20 11:30 06/04/20 08:06 DC 06/03/20 12:06 Pantoprazole Sodium (Protonix) 40 mg DAILYAC 06/01/20 16:30 06/02/20 09:25 Phenylephrine HCl (PHENYLEPHRINE in 0.9% NACL PF) 1 mg STK-MED ONCE 06/01/20 16:54 06/01/20 16:55 DC Piperacillin Sod/ Tazobactam Sod 3.375 gm/Sodium Chloride 50 ml @ 100 mls/hr Q6HRS 06/01/20 12:30 06/04/20 05:44 Potassium Chloride (Klor-Con) 20 meq DAILY@1300 06/01/20 13:00 06/02/20 12:33 Prochlorperazine Edisylate (Compazine) 5 mg PACU PRN PRN 06/01/20 19:45 06/02/20 09:02 DC Propofol (Diprivan) 200 mg STK-MED ONCE 06/01/20 16:52 06/01/20 16:53 DC Ringer's Solution 1,000 ml @ 30 mls/hr Q24H 06/01/20 19:38 06/01/20 22:04 DC Rocuronium Cerrillos (Zemuron) 50 mg STK-MED ONCE 06/01/20 19:11 06/01/20 19:11 DC Sevoflurane (Ultane) 90 ml STK-MED ONCE 06/01/20 16:50 06/01/20 16:51 DC Sodium Monofluorophosphate (Fleet Adult) 133 ml PRN DAILY PRN 06/01/20 12:30 Sodium Chloride 1,000 ml @ 100 mls/hr Q10H 06/01/20 22:00 06/03/20 23:44 Sodium Chloride (Normal Saline Flush) 3 ml QSHIFT PRN 06/01/20 12:30 Succinylcholine Chloride (Anectine) 200 mg STK-MED ONCE 06/01/20 16:51 06/01/20 16:51 DC Labs: Lab Laboratory Tests Test 06/03/20 11:51 06/03/20 19:24 06/04/20 05:45 Heparin Anti-Xa Act, Unfractionated 0.32 IU/mL (0.30-0.70) 0.39 IU/mL (0.30-0.70) 0.28 IU/mL (0.30-0.70) White Blood Count 16.6 x10^3/uL (4.0-11.0) Red Blood Count 3.43 x10^6/uL (3.50-5.40) Hemoglobin 7.8 g/dL (12.0-15.5) Hematocrit 25.7 % (36.0-47.0) Mean Corpuscular Volume 75 fL (79-100) Mean Corpuscular Hemoglobin 23 pg (25-35) Mean Corpuscular Hemoglobin Concent 31 g/dL (31-37) Red Cell Distribution Width 28.6 % (11.5-14.5) Platelet Count 219 x10^3/uL (140-400) Neutrophils (%) (Auto) 78 % (31-73) Lymphocytes (%) (Auto) 12 % (24-48) Monocytes (%) (Auto) 8 % (0-9) Eosinophils (%) (Auto) 2 % (0-3) Basophils (%) (Auto) 0 % (0-3) Neutrophils # (Auto) 12.9 x10^3/uL (1.8-7.7) Lymphocytes # (Auto) 2.0 x10^3/uL (1.0-4.8) Monocytes # (Auto) 1.3 x10^3/uL (0.0-1.1) Eosinophils # (Auto) 0.3 x10^3/uL (0.0-0.7) Basophils # (Auto) 0.0 x10^3/uL (0.0-0.2) Sodium Level 138 mmol/L (136-145) Potassium Level 3.2 mmol/L (3.5-5.1) Chloride Level 103 mmol/L (98-107) Carbon Dioxide Level 29 mmol/L (21-32) Anion Gap 6 (6-14) Blood Urea Nitrogen 12 mg/dL (7-20) Creatinine 0.7 mg/dL (0.6-1.0) Estimated GFR (Cockcroft-Gault) 83.0 Glucose Level 86 mg/dL (70-99) Calcium Level 7.2 mg/dL (8.5-10.1) Objective: Assessment: Mesenteric ischemia Multiple 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 s/p expl lap, REX and superior mesenteric artery Lexie thrombectomy on, 06/01. Abdominal pain, nausea, and vomiting, most likely secondary to mesenteric ischemia; Leukocytosis is reactive, in part steroids and surgery Tobaccoism Chronic obstructive pulmonary disease. Hypertension. Hyperlipidemia. Diabetes. Plan: Plan of Care Zosyn Monitor WBC/temp BC neg to date Maintain hydration Local wound care as directed. Maintain aspiration precautions Smoking cessation D/w nursing JACOB RAPHAEL MD Jun 04, 2020 10:31
[2020-06-04] MEDS: PANTOPRAZOLE 40 MG TABLET.DR. PO SCH (10:45)
[2020-06-04] MEDS: DULoxetine HCL 30 MG CAPSULE.DR PO SCH (10:45)
[2020-06-04] MEDS: LACTOBACILLUS RHAMNOSUS GG 1 CAPSULE. PO SCH ×2 (10:45→21:24)
[2020-06-04] MEDS: ALLOPURINOL 300 MG TABLET. PO SCH (10:45)
[2020-06-04] MEDS: FERROUS SULFATE 325 MG TABLET. PO SCH ×2 (10:45→17:13)
[2020-06-04] MEDS: ASPIRIN ENTERIC COATED 325 MG TABLET.DR. PO SCH (10:45)
[2020-06-04] MEDS ORDERED: ELECTROLYTE (ICU) PROTOCOL. MC PRN (11:00)
--- NOTE | 2020-06-04 11:06 | PDOC ---
Renal-Progress Notes Subjective Notes Notes NONE History of Present Illness Hx of present illness NO CHANGE Vitals Vitals Vital Signs Date Time Temp Pulse Resp B/P (MAP) Pulse Ox O2 Delivery O2 Flow Rate FiO2 06/04/20 07:26 95 Nasal Cannula 2.0 06/04/20 07:00 98.2 84 16 133/60 (84) 98.2 Weight Weight [ ] I.O. Intake and Output Intake and Output 06/04/20 07:00 Intake Total 200 ml Output Total 4285 ml Balance -4085 ml Intake Oral 200 ml Output Urine Total 4285 ml Labs Labs Laboratory Tests Test 06/03/20 11:51 06/03/20 19:24 06/04/20 05:45 Heparin Anti-Xa Act, Unfractionated 0.32 IU/mL (0.30-0.70) 0.39 IU/mL (0.30-0.70) 0.28 IU/mL (0.30-0.70) White Blood Count 16.6 x10^3/uL (4.0-11.0) Red Blood Count 3.43 x10^6/uL (3.50-5.40) Hemoglobin 7.8 g/dL (12.0-15.5) Hematocrit 25.7 % (36.0-47.0) Mean Corpuscular Volume 75 fL (79-100) Mean Corpuscular Hemoglobin 23 pg (25-35) Mean Corpuscular Hemoglobin Concent 31 g/dL (31-37) Red Cell Distribution Width 28.6 % (11.5-14.5) Platelet Count 219 x10^3/uL (140-400) Neutrophils (%) (Auto) 78 % (31-73) Lymphocytes (%) (Auto) 12 % (24-48) Monocytes (%) (Auto) 8 % (0-9) Eosinophils (%) (Auto) 2 % (0-3) Basophils (%) (Auto) 0 % (0-3) Neutrophils # (Auto) 12.9 x10^3/uL (1.8-7.7) Lymphocytes # (Auto) 2.0 x10^3/uL (1.0-4.8) Monocytes # (Auto) 1.3 x10^3/uL (0.0-1.1) Eosinophils # (Auto) 0.3 x10^3/uL (0.0-0.7) Basophils # (Auto) 0.0 x10^3/uL (0.0-0.2) Sodium Level 138 mmol/L (136-145) Potassium Level 3.2 mmol/L (3.5-5.1) Chloride Level 103 mmol/L (98-107) Carbon Dioxide Level 29 mmol/L (21-32) Anion Gap 6 (6-14) Blood Urea Nitrogen 12 mg/dL (7-20) Creatinine 0.7 mg/dL (0.6-1.0) Estimated GFR (Cockcroft-Gault) 83.0 Glucose Level 86 mg/dL (70-99) Calcium Level 7.2 mg/dL (8.5-10.1) Micro Micro Microbiology 06/01/20 Blood Culture - Preliminary, Resulted NO GROWTH AFTER 2 DAYS Review of Systems Constitutional: yes: unresponsive Physical Exam General Appearance: no apparent distress Respiratory: bilateral CTA Abdomen: soft, bowel sounds present Extremities: pulses present Neurology: other (SEDATE) Assessment Assessment . IMP MILD HYPOKALEMIA ? LEFT RENAL CORTICAL INFARCAT ACUTE RESP FAILURE COPD TOBACCOISM DIFFUSE ATHEROSCLEROSIS MESENTERIC ISCHEMIA-S/P SMA THROMBECTOY PLAN CR WNL, REPLACE K POSSIBLE SHE MAY HAVE HAD A EMBOLI TO LEFT KIDNEY NO FURTHER W/U NOW SUGGEST A MAG RENAL SCAN AT LATER DATE WILL SIGN OFF FOR NOW LANCE GREEN MD Jun 04, 2020 11:06
[2020-06-04] MEDS: IV NORMAL SALINE 1000ML BAG 1,000 ML IV SCH ×2 (12:19→17:10)
[2020-06-04] MEDS: POTASSIUM CHLORIDE 20 MEQ TABLET.ER. PO SCH (13:16)
--- NOTE | 2020-06-04 13:50 | NUR ---
SS following up with discharge planning. SS reviewed pt chart and discussed with pt RN. Pt is currently on room air. PT/OT recommended home independent. Pt getting transfusion today. Clear liquid diet. COVID19 negative. Pt currently requiring oxygen. Discharge plan is to home when medically ready. SS will continue to follow for discharge planning.
[2020-06-04] MEDS: ANTI-COAG MONITOR BY PHARMACY. MC PRN (15:49)
--- NOTE | 2020-06-04 16:35 | PDOC ---
PULMONARY PROGRESS NOTES DATE: 06/04/20 TIME: 16:33 Subjective on nasal canula no soa Vitals Vital Signs Date Time Temp Pulse Resp B/P (MAP) Pulse Ox O2 Delivery O2 Flow Rate FiO2 06/04/20 15:58 96 Nasal Cannula 2.0 06/04/20 15:00 98.6 72 16 127/63 (84) 98.6 General: Alert, No acute distress Lungs: Crackles (right base) Cardiovascular: S1 Abdomen: Soft, Non-tender Extremities: No Edema Skin: Warm Labs Laboratory Tests Test 06/02/20 17:51 06/03/20 05:40 06/03/20 11:51 06/03/20 19:24 Heparin Anti-Xa Act, Unfractionated 0.41 IU/mL (0.30-0.70) 0.28 IU/mL (0.30-0.70) 0.32 IU/mL (0.30-0.70) 0.39 IU/mL (0.30-0.70) White Blood Count 19.0 x10^3/uL (4.0-11.0) Red Blood Count 3.70 x10^6/uL (3.50-5.70) Hemoglobin 8.6 g/dL (12.0-15.5) Hematocrit 27.7 % (36.0-47.0) Mean Corpuscular Volume 75 fL (79-100) Mean Corpuscular Hemoglobin 23 pg (25-35) Mean Corpuscular Hemoglobin Concent 31 g/dL (31-37) Red Cell Distribution Width 28.1 % (11.5-14.5) Platelet Count 267 x10^3/uL (140-400) Neutrophils (%) (Auto) 81 % (31-73) Lymphocytes (%) (Auto) 11 % (24-48) Monocytes (%) (Auto) 7 % (0-9) Eosinophils (%) (Auto) 0 % (0-3) Basophils (%) (Auto) 0 % (0-3) Neutrophils # (Auto) 15.3 x10^3/uL (1.8-7.7) Lymphocytes # (Auto) 2.2 x10^3/uL (1.0-4.8) Monocytes # (Auto) 1.4 x10^3/uL (0.0-1.1) Eosinophils # (Auto) 0.0 x10^3/uL (0.0-0.7) Basophils # (Auto) 0.1 x10^3/uL (0.0-0.2) Absolute Reticulocyte Count 0.119 x10^6/uL (0.020-0.120) Percent Reticulocyte Count 3.2 % (0.5-2.3) Immature Reticulocyte Fraction 0.63 (0.20-0.60) Sodium Level 139 mmol/L (136-145) Potassium Level 3.6 mmol/L (3.5-5.1) Chloride Level 105 mmol/L (98-107) Carbon Dioxide Level 28 mmol/L (21-32) Anion Gap 6 (6-14) Blood Urea Nitrogen 16 mg/dL (7-20) Creatinine 0.7 mg/dL (0.6-1.0) Estimated GFR (Cockcroft-Gault) 83.0 Glucose Level 111 mg/dL (70-99) Calcium Level 7.4 mg/dL (8.5-10.1) Iron Level 10 ug/dL (50-170) Total Iron Binding Capacity 280 ug/dL (250-450) Iron Saturation 4 % (15-34) Vitamin B12 Level 735 pg/mL (247-911) Test 06/04/20 05:45 06/04/20 13:28 White Blood Count 16.6 x10^3/uL (4.0-11.0) Red Blood Count 3.43 x10^6/uL (3.50-5.40) Hemoglobin 7.8 g/dL (12.0-15.5) Hematocrit 25.7 % (36.0-47.0) Mean Corpuscular Volume 75 fL (79-100) Mean Corpuscular Hemoglobin 23 pg (25-35) Mean Corpuscular Hemoglobin Concent 31 g/dL (31-37) Red Cell Distribution Width 28.6 % (11.5-14.5) Platelet Count 219 x10^3/uL (140-400) Neutrophils (%) (Auto) 78 % (31-73) Lymphocytes (%) (Auto) 12 % (24-48) Monocytes (%) (Auto) 8 % (0-9) Eosinophils (%) (Auto) 2 % (0-3) Basophils (%) (Auto) 0 % (0-3) Neutrophils # (Auto) 12.9 x10^3/uL (1.8-7.7) Lymphocytes # (Auto) 2.0 x10^3/uL (1.0-4.8) Monocytes # (Auto) 1.3 x10^3/uL (0.0-1.1) Eosinophils # (Auto) 0.3 x10^3/uL (0.0-0.7) Basophils # (Auto) 0.0 x10^3/uL (0.0-0.2) Heparin Anti-Xa Act, Unfractionated 0.28 IU/mL (0.30-0.70) 0.39 IU/mL (0.30-0.70) Sodium Level 138 mmol/L (136-145) Potassium Level 3.2 mmol/L (3.5-5.1) Chloride Level 103 mmol/L (98-107) Carbon Dioxide Level 29 mmol/L (21-32) Anion Gap 6 (6-14) Blood Urea Nitrogen 12 mg/dL (7-20) Creatinine 0.7 mg/dL (0.6-1.0) Estimated GFR (Cockcroft-Gault) 83.0 Glucose Level 86 mg/dL (70-99) Calcium Level 7.2 mg/dL (8.5-10.1) Laboratory Tests Test 06/03/20 19:24 06/04/20 05:45 06/04/20 13:28 Heparin Anti-Xa Act, Unfractionated 0.39 IU/mL (0.30-0.70) 0.28 IU/mL (0.30-0.70) 0.39 IU/mL (0.30-0.70) White Blood Count 16.6 x10^3/uL (4.0-11.0) Red Blood Count 3.43 x10^6/uL (3.50-5.40) Hemoglobin 7.8 g/dL (12.0-15.5) Hematocrit 25.7 % (36.0-47.0) Mean Corpuscular Volume 75 fL (79-100) Mean Corpuscular Hemoglobin 23 pg (25-35) Mean Corpuscular Hemoglobin Concent 31 g/dL (31-37) Red Cell Distribution Width 28.6 % (11.5-14.5) Platelet Count 219 x10^3/uL (140-400) Neutrophils (%) (Auto) 78 % (31-73) Lymphocytes (%) (Auto) 12 % (24-48) Monocytes (%) (Auto) 8 % (0-9) Eosinophils (%) (Auto) 2 % (0-3) Basophils (%) (Auto) 0 % (0-3) Neutrophils # (Auto) 12.9 x10^3/uL (1.8-7.7) Lymphocytes # (Auto) 2.0 x10^3/uL (1.0-4.8) Monocytes # (Auto) 1.3 x10^3/uL (0.0-1.1) Eosinophils # (Auto) 0.3 x10^3/uL (0.0-0.7) Basophils # (Auto) 0.0 x10^3/uL (0.0-0.2) Sodium Level 138 mmol/L (136-145) Potassium Level 3.2 mmol/L (3.5-5.1) Chloride Level 103 mmol/L (98-107) Carbon Dioxide Level 29 mmol/L (21-32) Anion Gap 6 (6-14) Blood Urea Nitrogen 12 mg/dL (7-20) Creatinine 0.7 mg/dL (0.6-1.0) Estimated GFR (Cockcroft-Gault) 83.0 Glucose Level 86 mg/dL (70-99) Calcium Level 7.2 mg/dL (8.5-10.1) Medications Active Scripts Medications Dose Route/Sig Max Daily Dose Days Date Category Feosol (Ferrous Sulfate) 325 Mg Tablet 325 Mg PO BID 05/31/20 Rx Potassium Chloride 20 Meq Tablet.er 20 Meq PO AFTRNOON 30 12/19/19 Rx Aspirin Ec (Aspirin) 325 Mg Tablet. 325 Mg PO DAILYWBKFT 12/19/19 Rx Protonix (Pantoprazole Sodium) 20 Mg Tablet. 40 Mg PO DAILY 02/20/19 Reported Actos (Pioglitazone Hcl) 30 Mg Tablet 30 Mg PO DAILY 01/25/19 Reported Pravastatin Sodium 20 Mg Tablet 20 Mg PO QHS 07/02/16 Reported Allopurinol 100 Mg Tablet 300 Mg PO DAILY 11/20/15 Reported Cymbalta (Duloxetine Hcl) 60 Mg Capsule. 60 Mg PO DAILY 11/20/15 Reported Comments cxr diffuse interstitial infilt Impression . 1. Acute respiratory failure, expected multifactorial in etiology. 2. Abnormal chest x-ray and CT of the chest. 3. Chronic obstructive pulmonary disease. 4. Tobacco habituation. 5. Acute mesenteric ischemia, status post exploratory laparotomy, superior mesenteric artery thrombectomy, extensive lysis, postop day #2. 6. Hypertension. 7. Hyperlipidemia. 8. Coronary artery disease. 9. recent anemia Plan . 1. Titrate FiO2 to keep O2 saturation 92%. 2. Continue bronchodilator. 3. Pulmicort b.i.d. 4. incentive spirometer, to use multiple times an hour. 5. She does have bilateral infiltrate, right more than left and bilateral small effusion, right more than left. suspect CHF. CT Chest 06/03 reviewed. stable 2 mm right lung nodule/ basal atelectasis 6 PO AC per vascular surgery d/w PANCHO DUMONT MD Jun 04, 2020 16:35
[2020-06-04] MEDS ORDERED: POTASSIUM CHLORIDE 20 MEQ TABLET.ER. PO ONE (17:30)
[2020-06-04] MEDS: ATORVASTATIN CALCIUM 10 MG TABLET. PO SCH (21:22)
[2020-06-05] MEDS: PIPERACILLIN/TAZOBACTAM 3.375 GM in IV NORMAL SALINE 50ML 50 ML IV SCH ×2 (00:14→05:52)
[2020-06-05] MEDS: IV NORMAL SALINE 1000ML BAG 1,000 ML IV SCH (00:15)
[2020-06-05 03:23] VITALS: BP 142/61
[2020-06-05] MEDS: PANTOPRAZOLE 40 MG TABLET.DR. PO SCH (05:51)
[2020-06-05 06:33] LABS: BASO # 0.1 x10^3/uL (0.0-0.2); BASO % 1 % (0-3); EOS # 0.3 x10^3/uL (0.0-0.7); EOS % 2 % (0-3); HEMATOCRIT 28.3 % (36.0-47.0); HEMOGLOBIN 8.9 g/dL (12.0-15.5); LYMPH # 2.4 x10^3/uL (1.0-4.8); LYMPH % 17 % (24-48); MEAN CORPUSCULAR HEMOGLOBIN 24 pg (25-35); MEAN CORPUSCULAR HGB CONC 31 g/dL (31-37); MEAN CORPUSCULAR VOLUME 76 fL (79-100); MONO # 1.2 x10^3/uL (0.0-1.1); MONO % 8 % (0-9); NEUT # 10.1 x10^3/uL (1.8-7.7); NEUT % 72 % (31-73); PLATELET COUNT 200 x10^3/uL (140-400); RED BLOOD COUNT 3.72 x10^6/uL (3.50-5.40); RED CELL DISTRIBUTION WIDTH 27.3 % (11.5-14.5); WHITE BLOOD COUNT 14.1 x10^3/uL (4.0-11.0)
[2020-06-05 06:49] LABS: CALCIUM 7.8 mg/dL (8.5-10.1); CREATININE 0.7 mg/dL (0.6-1.0); POTASSIUM 3.2 mmol/L (3.5-5.1)
[2020-06-05 07:00] VITALS: BP 137/71
[2020-06-05] MEDS: HEPARIN 25,000UTS/250ML PREMIX 250 ML IV PRN (07:31)
--- NOTE | 2020-06-05 07:44 | PDOC ---
DATE OF SERVICE: DATE: 06/05/20 TIME: 07:42 GENERAL General: vss and afebrile. awake and alert and feeling better. chest clear, heart regular, and abdomen benign. Hb increased with transfusion. encouraged increased activity. diet per surgery. VITAL SIGNS/I&O Vital Signs/I&O: Vital Signs Date Time Temp Pulse Resp B/P (MAP) Pulse Ox O2 Delivery O2 Flow Rate FiO2 06/05/20 03:23 98.2 75 18 142/61 (88) 84 Nasal Cannula 2.0 98.2 I & O 06/04/20 06/04/20 06/05/20 15:00 23:00 07:00 Intake Total 637 ml 50 ml 950 ml Output Total 1075 ml Balance 637 ml -1025 ml 950 ml ALLERGIES Allergies: Allergies Coded Allergies Type Severity Reaction Last Updated Verified shrimp Allergy Intermediate Rash 12/12/19 Yes MEDS Medications: Current Medications Medications (Trade) Dose Ordered Sig/Kira Route PRN Reason Start Time Stop Time Status Last Admin Dose Admin Potassium Chloride (Klor-Con) 20 meq 1X ONCE PO 06/04/20 17:30 06/04/20 17:31 DC 06/04/20 17:14 LAB Lab: Laboratory Tests Test 06/04/20 13:28 06/04/20 19:30 06/05/20 06:15 Heparin Anti-Xa Act, Unfractionated 0.39 IU/mL (0.30-0.70) 0.43 IU/mL (0.30-0.70) 0.21 IU/mL (0.30-0.70) L White Blood Count 14.1 x10^3/uL (4.0-11.0) H Red Blood Count 3.72 x10^6/uL (3.50-5.40) Hemoglobin 8.9 g/dL (12.0-15.5) L Hematocrit 28.3 % (36.0-47.0) L Mean Corpuscular Volume 76 fL (79-100) L Mean Corpuscular Hemoglobin 24 pg (25-35) L Mean Corpuscular Hemoglobin Concent 31 g/dL (31-37) Red Cell Distribution Width 27.3 % (11.5-14.5) H Platelet Count 200 x10^3/uL (140-400) Neutrophils (%) (Auto) 72 % (31-73) Lymphocytes (%) (Auto) 17 % (24-48) L Monocytes (%) (Auto) 8 % (0-9) Eosinophils (%) (Auto) 2 % (0-3) Basophils (%) (Auto) 1 % (0-3) Neutrophils # (Auto) 10.1 x10^3/uL (1.8-7.7) H Lymphocytes # (Auto) 2.4 x10^3/uL (1.0-4.8) Monocytes # (Auto) 1.2 x10^3/uL (0.0-1.1) H Eosinophils # (Auto) 0.3 x10^3/uL (0.0-0.7) Basophils # (Auto) 0.1 x10^3/uL (0.0-0.2) Sodium Level 140 mmol/L (136-145) Potassium Level 3.2 mmol/L (3.5-5.1) L Chloride Level 105 mmol/L (98-107) Carbon Dioxide Level 28 mmol/L (21-32) Anion Gap 7 (6-14) Blood Urea Nitrogen 11 mg/dL (7-20) Creatinine 0.7 mg/dL (0.6-1.0) Estimated GFR (Cockcroft-Gault) 83.0 Glucose Level 91 mg/dL (70-99) Calcium Level 7.8 mg/dL (8.5-10.1) L Laboratory Tests 06/05/20 06:15 Laboratory Tests 06/05/20 06:15 Justicifation of Admission Dx: Justifications for Admission: Justification of Admission Dx: Yes Sepsis: Infection Nutrition Consultation Dietary Evaluation: Recommendations by RD: Dietary education by RD, Increase Calorie Intake, Prot ein supplementation Comments: REC advance diet as able within 24 - 48 hrs, diet per vacular per notes; recommend goal diet of cardiac/ADA REC Glucerna (chocolate) q day or more often per pt preference Expected Outcomes/Goals: diet advancement Interpretation of weight loss: >5% in 1 month Malnutrition Findings: Food and Nutrition Intake (Sev: <50% est energy req 5days Weight Status: Appropriate ANABEL MARTÍNEZ MD Jun 05, 2020 07:44
[2020-06-05] MEDS: ASPIRIN ENTERIC COATED 325 MG TABLET.DR. PO SCH (08:15)
[2020-06-05] MEDS: DULoxetine HCL 30 MG CAPSULE.DR PO SCH (08:15)
[2020-06-05] MEDS: FERROUS SULFATE 325 MG TABLET. PO SCH ×2 (08:15→16:57)
[2020-06-05] MEDS: LACTOBACILLUS RHAMNOSUS GG 1 CAPSULE. PO SCH ×2 (08:15→21:07)
[2020-06-05] MEDS: ALLOPURINOL 300 MG TABLET. PO SCH (08:15)
--- NOTE | 2020-06-05 08:15 | PDOC ---
Infectious Disease Note Subjective: Subjective Pt is alert awake says feels better Pain controlled Denies F/C/ N/V/sob/diarrhea Vital Signs: Vital Signs Vital Signs Date Time Temp Pulse Resp B/P (MAP) Pulse Ox O2 Delivery O2 Flow Rate FiO2 06/05/20 03:23 98.2 75 18 142/61 (88) 84 Nasal Cannula 2.0 98.2 Physical Exam: PHYSICAL EXAM GENERAL: Propped up in bed, awake, in NAD HENT: BRIDGER, Oropharynx pink dry. No lesions. + NGT NECK: Supple LUNGS: CTAB, nonlabored HEART: S1 and S2, irregular ABDOMEN: Some distention, BS quiet, soft, tender. Dressing dry : [place] in place EXT: No gross edema or cyanosis SKIN: without rash SENIOR CREDIT ANALYST: Alert, oriented x 3 RIJ (06/01) without signs of complications Medications: Inpatient Meds: Current Medications Medications (Trade) Dose Ordered Sig/Kira Start Time Stop Time Status Last Admin Dose Admin Acetaminophen (Tylenol) 650 mg PRN Q4HRS PRN 06/01/20 12:30 Al Hydroxide/Mg Hydroxide (Mylanta Plus Xs) 30 ml PRN DAILY PRN 06/01/20 12:30 Albuterol/ Ipratropium (Duoneb) 3 ml Q4HRS W/A 06/01/20 14:00 06/04/20 20:24 3 ML Allopurinol (Zyloprim) 300 mg DAILY 06/01/20 13:00 06/04/20 10:45 300 MG Aspirin (Ecotrin) 325 mg DAILYWBKFT 06/01/20 13:00 06/04/20 10:45 325 MG Atorvastatin Calcium (Lipitor) 5 mg QHS 06/01/20 21:00 06/04/20 21:22 5 MG Budesonide (Pulmicort) 0.5 mg RTBID 06/02/20 08:00 06/04/20 20:25 0.5 MG Cefazolin Sodium 1 gm/Sodium Chloride 500 ml @ 500 mls/hr 1X ONCE 06/01/20 17:30 06/01/20 18:29 DC 06/01/20 18:22 Ceftriaxone Sodium (Rocephin) 2 gm 1X ONCE 06/01/20 06:45 06/01/20 06:46 DC 06/01/20 07:23 2 GM Cellulose (Surgicel Fibrillar 1x2) 1 each STK-MED ONCE 06/01/20 17:45 06/01/20 17:45 DC 06/01/20 18:22 1 EACH Clonidine HCl (Catapres) 0.1 mg PRN Q6HRS PRN 06/01/20 12:30 Dexamethasone Sodium Phosphate (Decadron) 4 mg STK-MED ONCE 06/01/20 16:52 06/01/20 16:52 DC Docusate Sodium (Colace) 100 mg PRN BID PRN 06/01/20 12:30 Duloxetine HCl (Cymbalta) 60 mg DAILY 06/01/20 13:00 06/04/20 10:45 60 MG Enoxaparin Sodium (Lovenox 40mg Syringe) 40 mg Q24H 06/01/20 12:30 06/01/20 13:03 DC Enoxaparin Sodium (Lovenox 80mg Syringe) 80 mg Q12HR 06/01/20 13:15 06/01/20 20:18 DC Fentanyl Citrate (Fentanyl 2ml Vial) 50 mcg PRN Q5MIN PRN 06/01/20 19:45 06/02/20 09:02 DC 06/01/20 21:46 50 MCG Ferrous Sulfate (Feosol) 325 mg BIDWMEALS 06/01/20 17:00 06/04/20 17:13 325 MG Furosemide (Lasix) 20 mg 1X ONCE 06/03/20 11:15 06/03/20 11:17 DC 06/03/20 12:07 20 MG Glycopyrrolate (Robinul) 1 mg STK-MED ONCE 06/01/20 16:51 06/01/20 16:52 DC Guaifenesin (Robitussin) 200 mg PRN Q4HRS PRN 06/01/20 12:30 Heparin Sodium (Porcine) (Heparin Sodium) 1,150 unit PRN Q6HRS PRN 06/01/20 20:30 06/02/20 06:44 DC Heparin Sodium (Porcine) 5000 unit/Sodium Chloride 505 ml @ 505 mls/hr 1X ONCE 06/01/20 17:30 06/01/20 18:29 DC 06/01/20 18:22 Heparin Sodium/ Dextrose 250 ml @ 12.144 mls/ hr CONT PRN 06/01/20 21:00 06/04/20 22:25 12.144 MLS/HR Hydromorphone HCl (Dilaudid) 0.5 mg PRN Q10MIN PRN 06/01/20 19:45 06/02/20 09:02 DC Info (Anti-Coagulation Monitoring By Pharmacy) 1 each PRN DAILY PRN 06/01/20 20:30 06/04/20 15:49 1 EACH Info (CONTRAST GIVEN -- Rx MONITORING) 1 each PRN DAILY PRN 06/01/20 05:00 06/03/20 04:59 DC Info (Icu Electrolyte Protocol) 1 ea CONT PRN PRN 06/04/20 11:00 Iohexol (Omnipaque 300 Mg/ml) 75 ml 1X ONCE 06/01/20 05:00 06/01/20 05:01 DC 06/01/20 05:14 75 ML Lactobacillus Rhamnosus (Culturelle) 1 cap BID 06/01/20 21:00 06/04/20 21:24 1 CAP Lidocaine HCl (Lidocaine Pf 2% Vial) 5 ml STK-MED ONCE 06/01/20 16:52 06/01/20 16:52 DC Lidocaine HCl (Xylocaine-Mpf 1% 2ml Vial) 2 ml PRN 1X PRN 06/01/20 19:45 06/02/20 09:02 DC Midazolam HCl (Versed) 2 mg STK-MED ONCE 06/01/20 16:51 06/01/20 16:52 DC Morphine Sulfate (Morphine Sulfate) 2 mg PRN Q2HR PRN 06/02/20 00:00 06/03/20 12:07 2 MG Neostigmine Beaver (Neostigmine Methylsulfate) 5 mg STK-MED ONCE 06/01/20 16:51 06/01/20 16:51 DC Ondansetron HCl (Zofran) 4 mg PRN Q6HRS PRN 06/01/20 19:45 06/02/20 09:02 DC Pantoprazole Sodium (PROTONIX VIAL for IV PUSH) 40 mg DAILYAC 06/03/20 11:30 06/04/20 08:06 DC 06/03/20 12:06 40 MG Pantoprazole Sodium (Protonix) 40 mg DAILYAC 06/01/20 16:30 06/05/20 05:51 40 MG Phenylephrine HCl (PHENYLEPHRINE in 0.9% NACL PF) 1 mg STK-MED ONCE 06/01/20 16:54 06/01/20 16:55 DC Piperacillin Sod/ Tazobactam Sod 3.375 gm/Sodium Chloride 50 ml @ 100 mls/hr Q6HRS 06/01/20 12:30 06/05/20 05:52 100 MLS/HR Potassium Chloride (Klor-Con) 20 meq 1X ONCE 06/04/20 17:30 06/04/20 17:31 DC 06/04/20 17:14 20 MEQ Prochlorperazine Edisylate (Compazine) 5 mg PACU PRN PRN 06/01/20 19:45 06/02/20 09:02 DC Propofol (Diprivan) 200 mg STK-MED ONCE 06/01/20 16:52 06/01/20 16:53 DC Ringer's Solution 1,000 ml @ 30 mls/hr Q24H 06/01/20 19:38 06/01/20 22:04 DC Rocuronium Beaver (Zemuron) 50 mg STK-MED ONCE 06/01/20 19:11 06/01/20 19:11 DC Sevoflurane (Ultane) 90 ml STK-MED ONCE 06/01/20 16:50 06/01/20 16:51 DC Sodium Monofluorophosphate (Fleet Adult) 133 ml PRN DAILY PRN 06/01/20 12:30 Sodium Chloride 1,000 ml @ 100 mls/hr Q10H 06/01/20 22:00 06/05/20 00:15 100 MLS/HR Sodium Chloride (Normal Saline Flush) 3 ml QSHIFT PRN 06/01/20 12:30 Succinylcholine Chloride (Anectine) 200 mg STK-MED ONCE 06/01/20 16:51 06/01/20 16:51 DC Labs: Lab Laboratory Tests Test 06/04/20 13:28 06/04/20 19:30 06/05/20 06:15 Heparin Anti-Xa Act, Unfractionated 0.39 IU/mL (0.30-0.70) 0.43 IU/mL (0.30-0.70) 0.21 IU/mL (0.30-0.70) White Blood Count 14.1 x10^3/uL (4.0-11.0) Red Blood Count 3.72 x10^6/uL (3.50-5.40) Hemoglobin 8.9 g/dL (12.0-15.5) Hematocrit 28.3 % (36.0-47.0) Mean Corpuscular Volume 76 fL (79-100) Mean Corpuscular Hemoglobin 24 pg (25-35) Mean Corpuscular Hemoglobin Concent 31 g/dL (31-37) Red Cell Distribution Width 27.3 % (11.5-14.5) Platelet Count 200 x10^3/uL (140-400) Neutrophils (%) (Auto) 72 % (31-73) Lymphocytes (%) (Auto) 17 % (24-48) Monocytes (%) (Auto) 8 % (0-9) Eosinophils (%) (Auto) 2 % (0-3) Basophils (%) (Auto) 1 % (0-3) Neutrophils # (Auto) 10.1 x10^3/uL (1.8-7.7) Lymphocytes # (Auto) 2.4 x10^3/uL (1.0-4.8) Monocytes # (Auto) 1.2 x10^3/uL (0.0-1.1) Eosinophils # (Auto) 0.3 x10^3/uL (0.0-0.7) Basophils # (Auto) 0.1 x10^3/uL (0.0-0.2) Sodium Level 140 mmol/L (136-145) Potassium Level 3.2 mmol/L (3.5-5.1) Chloride Level 105 mmol/L (98-107) Carbon Dioxide Level 28 mmol/L (21-32) Anion Gap 7 (6-14) Blood Urea Nitrogen 11 mg/dL (7-20) Creatinine 0.7 mg/dL (0.6-1.0) Estimated GFR (Cockcroft-Gault) 83.0 Glucose Level 91 mg/dL (70-99) Calcium Level 7.8 mg/dL (8.5-10.1) Objective: Assessment: Mesenteric ischemia Multiple 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 s/p expl lap, REX and superior mesenteric artery Lexie thrombectomy on, 8/8. Abdominal pain, nausea, and vomiting, most likely secondary to mesenteric ischemia; Leukocytosis is reactive, in part steroids and surgery Tobaccoism Chronic obstructive pulmonary disease. Hypertension. Hyperlipidemia. Diabetes. Plan: Plan of Care DC Zosyn Start Augmentin BC neg to date Local wound care as directed. Maintain aspiration precautions Smoking cessation D/w nursing JACOB RAPHAEL MD Jun 05, 2020 08:15
[2020-06-05] MEDS: BUDESONIDE 0.5 MG/2 ML NEBU. NEB SCH ×2 (08:18→19:55)
[2020-06-05] MEDS: IPRATRPIUM/ALBUTEROL 0.5/2.5MG 3 ML NEBU. NEB SCH ×5 (08:18→22:00)
[2020-06-05 09:58] LABS: % BANDS 1 % (0-9); % EOS 2 % (0-5); % LYMPHS 12 % (24-48); % MONOS 6 % (0-10); % SEGS 79 % (35-66); HYPOCHROMIA PRESENT; PLT ESTIMATE ADEQUATE (ADEQUATE); POLYCHROMASIA PRESENT
[2020-06-05 09:59] LABS: ANISOCYTOSIS PRESENT; MICROCYTOSIS PRESENT; POIKILOCYTOSIS PRESENT
[2020-06-05 10:00] LABS: BIZZARE CELLS PRESENT
--- NOTE | 2020-06-05 10:08 | PDOC ---
Date of Service: DATE: 06/05/20 TIME: 10:07 Subjective: Subjective: No complaints, says gets to advance diet today. Objective: Vital Signs: Vital Signs Date Time Temp Pulse Resp B/P (MAP) Pulse Ox O2 Delivery O2 Flow Rate FiO2 06/05/20 08:52 Nasal Cannula 2.0 06/05/20 08:20 96 06/05/20 07:00 98.1 83 16 137/71 (93) 98.1 Labs: Laboratory Tests Test 06/04/20 13:28 06/04/20 19:30 06/05/20 06:15 Heparin Anti-Xa Act, Unfractionated 0.39 IU/mL 0.43 IU/mL 0.21 IU/mL White Blood Count 14.1 x10^3/uL Red Blood Count 3.72 x10^6/uL Hemoglobin 8.9 g/dL Hematocrit 28.3 % Mean Corpuscular Volume 76 fL Mean Corpuscular Hemoglobin 24 pg Mean Corpuscular Hemoglobin Concent 31 g/dL Red Cell Distribution Width 27.3 % Platelet Count 200 x10^3/uL Neutrophils (%) (Auto) 72 % Lymphocytes (%) (Auto) 17 % Monocytes (%) (Auto) 8 % Eosinophils (%) (Auto) 2 % Basophils (%) (Auto) 1 % Neutrophils # (Auto) 10.1 x10^3/uL Lymphocytes # (Auto) 2.4 x10^3/uL Monocytes # (Auto) 1.2 x10^3/uL Eosinophils # (Auto) 0.3 x10^3/uL Basophils # (Auto) 0.1 x10^3/uL Segmented Neutrophils % 79 % Band Neutrophils % 1 % Lymphocytes % 12 % Monocytes % 6 % Eosinophils % 2 % Platelet Estimate Adequate Polychromasia Present Hypochromasia Present Poikilocytosis Present Anisocytosis Present Microcytosis Present Macrocytosis Present Spherocytes Many RBC Morphology Bizarre Forms Present Sodium Level 140 mmol/L Potassium Level 3.2 mmol/L Chloride Level 105 mmol/L Carbon Dioxide Level 28 mmol/L Anion Gap 7 Blood Urea Nitrogen 11 mg/dL Creatinine 0.7 mg/dL Estimated GFR (Cockcroft-Gault) 83.0 Glucose Level 91 mg/dL Calcium Level 7.8 mg/dL PE: GEN: NAD LUNGS: diminished HEART: RRR ABD: NABS, S/ND/NT NEURO/PSYCH: A & O 3 A/P: S/p SMA thrombectomy, REX, expl laparotomy 06/01/20 Chronic ELIDA - restarted PO iron last week, last 'scopes in 2018 GERD - on PPI -- Stable GI-mortensen, continue same. Justicifation of Admission Dx: Justifications for Admission: Justification of Admission Dx: Yes Sepsis: Infection ELDA HUTTON Jun 05, 2020 10:08
--- NOTE | 2020-06-05 10:09 | PDOC ---
Provider Note Date of Service: DATE: 06/05/20 TIME: 10:07 Provider Note Provider Note Vascular S: Patient is seen and examined in room. Denies any pain. +flatus O: AF VSS awake and alert abdomen soft, nondistended, nontender, incision dry and intact. + BS lower extremities warm with no edema neuro exam intact A/P POD#3 superior mesenteric artery thrombectomy for acute occlusion, no signs of bowel ischemia -Continue Aspirin, will stop Heparin and start Xarelto, continue to monitor Hgb, appreciate Hematology input -Advance to cardiac diet -Replace potassium per protocol -up ad mukesh, PT/OT consult -antibiotics per ID Item Value Date Time Heparin Anti-Xa Act, Unfractionated 0.21 IU/mL L 06/05/20 0615 White Blood Count 14.1 x10^3/uL H 06/05/20 0615 Hemoglobin 8.9 g/dL L 06/05/20 0615 Hematocrit 28.3 % L 06/05/20 0615 Platelet Count 200 x10^3/uL 06/05/20 0615 Sodium Level 140 mmol/L 06/05/20 0615 Potassium Level 3.2 mmol/L L 06/05/20 0615 Chloride Level 105 mmol/L 06/05/20 0615 Carbon Dioxide Level 28 mmol/L 06/05/20 0615 Creatinine 0.7 mg/dL 06/05/20 0615 Glucose Level 91 mg/dL 06/05/20 0615 Justicifation of Admission Dx: Justifications for Admission: Justification of Admission Dx: Yes Sepsis: Infection TIANNA RAMIRES APRN Jun 05, 2020 10:09
[2020-06-05] MEDS: AMOXICILLIN/K CLAV 875/125MG TABLET. PO SCH ×2 (10:29→21:07)
[2020-06-05] MEDS: RIVAROXABAN 15 MG TABLET. PO SCH ×2 (10:30→16:57)
[2020-06-05] MEDS: POTASSIUM CHLORIDE 20 MEQ TABLET.ER. PO SCH (10:35)
--- NOTE | 2020-06-05 10:59 | NUR ---
SW following. Discussed with RN, pt from home, PT/OT ordered. Pt on clear liquid diet - will try solids for lunch. Heparin drip has been stopped, IV abx switched to oral abx. Pt still requiring 2L oxygen, 6 minute walk needed prior to discharge. RN anticipates possible discharge tomorrow (06/06/2020). SW will continue to follow
[2020-06-05 11:00] VITALS: BP 129/72
--- NOTE | 2020-06-05 11:05 | PDOC ---
PULMONARY PROGRESS NOTES DATE: 06/05/20 TIME: 11:03 Subjective on nasal canula no soa, no increased cough, no cp , no belly pain Vitals Vital Signs Date Time Temp Pulse Resp B/P (MAP) Pulse Ox O2 Delivery O2 Flow Rate FiO2 06/05/20 08:52 Nasal Cannula 2.0 06/05/20 08:20 96 06/05/20 07:00 98.1 83 16 137/71 (93) 98.1 ROS: No Nausea, No Chest Pain, No Abdominal Pain, No Increase Cough General: Alert, No acute distress Lungs: Clear Cardiovascular: S1 Abdomen: Soft, Non-tender Neuro Exam: Alert, Oriented Extremities: No Edema Skin: Warm Labs Laboratory Tests Test 06/03/20 11:51 06/03/20 19:24 06/04/20 05:45 06/04/20 13:28 Heparin Anti-Xa Act, Unfractionated 0.32 IU/mL (0.30-0.70) 0.39 IU/mL (0.30-0.70) 0.28 IU/mL (0.30-0.70) 0.39 IU/mL (0.30-0.70) White Blood Count 16.6 x10^3/uL (4.0-11.0) Red Blood Count 3.43 x10^6/uL (3.50-5.40) Hemoglobin 7.8 g/dL (12.0-15.5) Hematocrit 25.7 % (36.0-47.0) Mean Corpuscular Volume 75 fL (79-100) Mean Corpuscular Hemoglobin 23 pg (25-35) Mean Corpuscular Hemoglobin Concent 31 g/dL (31-37) Red Cell Distribution Width 28.6 % (11.5-14.5) Platelet Count 219 x10^3/uL (140-400) Neutrophils (%) (Auto) 78 % (31-73) Lymphocytes (%) (Auto) 12 % (24-48) Monocytes (%) (Auto) 8 % (0-9) Eosinophils (%) (Auto) 2 % (0-3) Basophils (%) (Auto) 0 % (0-3) Neutrophils # (Auto) 12.9 x10^3/uL (1.8-7.7) Lymphocytes # (Auto) 2.0 x10^3/uL (1.0-4.8) Monocytes # (Auto) 1.3 x10^3/uL (0.0-1.1) Eosinophils # (Auto) 0.3 x10^3/uL (0.0-0.7) Basophils # (Auto) 0.0 x10^3/uL (0.0-0.2) Sodium Level 138 mmol/L (136-145) Potassium Level 3.2 mmol/L (3.5-5.1) Chloride Level 103 mmol/L (98-107) Carbon Dioxide Level 29 mmol/L (21-32) Anion Gap 6 (6-14) Blood Urea Nitrogen 12 mg/dL (7-20) Creatinine 0.7 mg/dL (0.6-1.0) Estimated GFR (Cockcroft-Gault) 83.0 Glucose Level 86 mg/dL (70-99) Calcium Level 7.2 mg/dL (8.5-10.1) Test 06/04/20 19:30 06/05/20 06:15 Heparin Anti-Xa Act, Unfractionated 0.43 IU/mL (0.30-0.70) 0.21 IU/mL (0.30-0.70) White Blood Count 14.1 x10^3/uL (4.0-11.0) Red Blood Count 3.72 x10^6/uL (3.50-5.40) Hemoglobin 8.9 g/dL (12.0-15.5) Hematocrit 28.3 % (36.0-47.0) Mean Corpuscular Volume 76 fL (79-100) Mean Corpuscular Hemoglobin 24 pg (25-35) Mean Corpuscular Hemoglobin Concent 31 g/dL (31-37) Red Cell Distribution Width 27.3 % (11.5-14.5) Platelet Count 200 x10^3/uL (140-400) Neutrophils (%) (Auto) 72 % (31-73) Lymphocytes (%) (Auto) 17 % (24-48) Monocytes (%) (Auto) 8 % (0-9) Eosinophils (%) (Auto) 2 % (0-3) Basophils (%) (Auto) 1 % (0-3) Neutrophils # (Auto) 10.1 x10^3/uL (1.8-7.7) Lymphocytes # (Auto) 2.4 x10^3/uL (1.0-4.8) Monocytes # (Auto) 1.2 x10^3/uL (0.0-1.1) Eosinophils # (Auto) 0.3 x10^3/uL (0.0-0.7) Basophils # (Auto) 0.1 x10^3/uL (0.0-0.2) Segmented Neutrophils % 79 % (35-66) Band Neutrophils % 1 % (0-9) Lymphocytes % 12 % (24-48) Monocytes % 6 % (0-10) Eosinophils % 2 % (0-5) Platelet Estimate Adequate (ADEQUATE) Polychromasia Present Hypochromasia Present Poikilocytosis Present Anisocytosis Present Microcytosis Present Macrocytosis Present Spherocytes Many RBC Morphology Bizarre Forms Present Sodium Level 140 mmol/L (136-145) Potassium Level 3.2 mmol/L (3.5-5.1) Chloride Level 105 mmol/L (98-107) Carbon Dioxide Level 28 mmol/L (21-32) Anion Gap 7 (6-14) Blood Urea Nitrogen 11 mg/dL (7-20) Creatinine 0.7 mg/dL (0.6-1.0) Estimated GFR (Cockcroft-Gault) 83.0 Glucose Level 91 mg/dL (70-99) Calcium Level 7.8 mg/dL (8.5-10.1) Laboratory Tests Test 06/04/20 13:28 06/04/20 19:30 06/05/20 06:15 Heparin Anti-Xa Act, Unfractionated 0.39 IU/mL (0.30-0.70) 0.43 IU/mL (0.30-0.70) 0.21 IU/mL (0.30-0.70) White Blood Count 14.1 x10^3/uL (4.0-11.0) Red Blood Count 3.72 x10^6/uL (3.50-5.40) Hemoglobin 8.9 g/dL (12.0-15.5) Hematocrit 28.3 % (36.0-47.0) Mean Corpuscular Volume 76 fL (79-100) Mean Corpuscular Hemoglobin 24 pg (25-35) Mean Corpuscular Hemoglobin Concent 31 g/dL (31-37) Red Cell Distribution Width 27.3 % (11.5-14.5) Platelet Count 200 x10^3/uL (140-400) Neutrophils (%) (Auto) 72 % (31-73) Lymphocytes (%) (Auto) 17 % (24-48) Monocytes (%) (Auto) 8 % (0-9) Eosinophils (%) (Auto) 2 % (0-3) Basophils (%) (Auto) 1 % (0-3) Neutrophils # (Auto) 10.1 x10^3/uL (1.8-7.7) Lymphocytes # (Auto) 2.4 x10^3/uL (1.0-4.8) Monocytes # (Auto) 1.2 x10^3/uL (0.0-1.1) Eosinophils # (Auto) 0.3 x10^3/uL (0.0-0.7) Basophils # (Auto) 0.1 x10^3/uL (0.0-0.2) Segmented Neutrophils % 79 % (35-66) Band Neutrophils % 1 % (0-9) Lymphocytes % 12 % (24-48) Monocytes % 6 % (0-10) Eosinophils % 2 % (0-5) Platelet Estimate Adequate (ADEQUATE) Polychromasia Present Hypochromasia Present Poikilocytosis Present Anisocytosis Present Microcytosis Present Macrocytosis Present Spherocytes Many RBC Morphology Bizarre Forms Present Sodium Level 140 mmol/L (136-145) Potassium Level 3.2 mmol/L (3.5-5.1) Chloride Level 105 mmol/L (98-107) Carbon Dioxide Level 28 mmol/L (21-32) Anion Gap 7 (6-14) Blood Urea Nitrogen 11 mg/dL (7-20) Creatinine 0.7 mg/dL (0.6-1.0) Estimated GFR (Cockcroft-Gault) 83.0 Glucose Level 91 mg/dL (70-99) Calcium Level 7.8 mg/dL (8.5-10.1) Medications Active Scripts Medications Dose Route/Sig Max Daily Dose Days Date Category Feosol (Ferrous Sulfate) 325 Mg Tablet 325 Mg PO BID 90 05/31/20 Rx Potassium Chloride 20 Meq Tablet.er 20 Meq PO AFTRNOON 30 12/19/19 Rx Aspirin Ec (Aspirin) 325 Mg Tablet. 325 Mg PO DAILYWBKFT 90 12/19/19 Rx Protonix (Pantoprazole Sodium) 20 Mg Tablet. 40 Mg PO DAILY 02/20/19 Reported Actos (Pioglitazone Hcl) 30 Mg Tablet 30 Mg PO DAILY 01/25/19 Reported Pravastatin Sodium 20 Mg Tablet 20 Mg PO QHS 07/02/16 Reported Allopurinol 100 Mg Tablet 300 Mg PO DAILY 11/20/15 Reported Cymbalta (Duloxetine Hcl) 60 Mg Capsule.dr 60 Mg PO DAILY 11/20/15 Reported Comments cxr diffuse interstitial infilt Impression . 1. Acute respiratory failure, expected multifactorial in etiology-- improved 2. Abnormal chest x-ray and CT of the chest. 3. Chronic obstructive pulmonary disease. 4. Tobacco habituation. 5. Acute mesenteric ischemia, status post exploratory laparotomy, superior mesenteric artery thrombectomy, extensive lysis, . 6. Hypertension. 7. Hyperlipidemia. 8. Coronary artery disease. 9. recent anemia Plan . 1. Titrate FiO2 to keep O2 saturation 92%, 2 liters N/C which is baseline 02 requirement for her 2. Continue bronchodilator. 3. Pulmicort b.i.d. 4. incentive spirometer, to use multiple times an hour. 5. She does have bilateral infiltrate, right more than left and bilateral small effusion, right more than left. suspect CHF. CT Chest 06/03 reviewed. stable 2 mm right lung nodule/ basal atelectasis 6 PO AC per vascular surgery-- planned to D/C heparin gtt today and start xarellto ok to D/C from pulmonary standpoint d/w PANCHO DUMONT MD Jun 05, 2020 11:05
[2020-06-05 11:54] LABS: SPHEROCYTES FEW
[2020-06-05 14:42] VITALS: BP 125/64
[2020-06-05 19:00] VITALS: BP 148/72
[2020-06-05] MEDS: ATORVASTATIN CALCIUM 10 MG TABLET. PO SCH (21:07)
[2020-06-05 23:09] VITALS: BP 141/58
[2020-06-06 03:00] VITALS: BP 165/75
[2020-06-06] MEDS: IPRATRPIUM/ALBUTEROL 0.5/2.5MG 3 ML NEBU. NEB SCH ×4 (05:37→20:11)
[2020-06-06] MEDS: BUDESONIDE 0.5 MG/2 ML NEBU. NEB SCH ×2 (05:37→20:11)
[2020-06-06] MEDS: PANTOPRAZOLE 40 MG TABLET.DR. PO SCH (06:21)
[2020-06-06 06:57] LABS: BASO # 0.1 x10^3/uL (0.0-0.2); BASO % 1 % (0-3); EOS # 0.2 x10^3/uL (0.0-0.7); EOS % 2 % (0-3); HEMATOCRIT 29.5 % (36.0-47.0); HEMOGLOBIN 9.2 g/dL (12.0-15.5); LYMPH # 1.9 x10^3/uL (1.0-4.8); LYMPH % 13 % (24-48); MEAN CORPUSCULAR HEMOGLOBIN 24 pg (25-35); MEAN CORPUSCULAR HGB CONC 31 g/dL (31-37); MEAN CORPUSCULAR VOLUME 76 fL (79-100); MONO # 1.3 x10^3/uL (0.0-1.1); MONO % 9 % (0-9); NEUT % 76 % (31-73); PLATELET COUNT 257 x10^3/uL (140-400); RED BLOOD COUNT 3.87 x10^6/uL (3.50-5.40); RED CELL DISTRIBUTION WIDTH 27.6 % (11.5-14.5); WHITE BLOOD COUNT 14.6 x10^3/uL (4.0-11.0)
[2020-06-06 07:00] VITALS: BP 149/72
[2020-06-06 07:18] LABS: CALCIUM 8.1 mg/dL (8.5-10.1); CREATININE 0.6 mg/dL (0.6-1.0); GFR 99.1; POTASSIUM 3.1 mmol/L (3.5-5.1)
--- NOTE | 2020-06-06 08:08 | PDOC ---
Infectious Disease Note Subjective: Subjective Pt complains of shortness of breath Currently on 4 L O2 by nasal cannula Pain controlled Denies F/C/ N/V/diarrhea Vital Signs: Vital Signs Vital Signs Date Time Temp Pulse Resp B/P (MAP) Pulse Ox O2 Delivery O2 Flow Rate FiO2 06/06/20 05:40 99 Nasal Cannula 3.5 06/06/20 03:00 98.2 104 18 165/75 (105) 98.2 Physical Exam: PHYSICAL EXAM GENERAL: Propped up in bed, awake, in NAD HENT: Oropharynx pink dry. No lesions. On O2 NECK: Supple LUNGS: CTAB, nonlabored HEART: S1 and S2, irregular ABDOMEN: Some distention, BS quiet, soft, tender. Dressing dry : [place] in place EXT: No gross edema or cyanosis SKIN: without rash MIRROR INSPECTOR: Alert, oriented x 3 RIJ (06/01) without signs of complications Medications: Inpatient Meds: Current Medications Medications (Trade) Dose Ordered Sig/Kira Start Time Stop Time Status Last Admin Dose Admin Acetaminophen (Tylenol) 650 mg PRN Q4HRS PRN 06/01/20 12:30 Al Hydroxide/Mg Hydroxide (Mylanta Plus Xs) 30 ml PRN DAILY PRN 06/01/20 12:30 Albuterol/ Ipratropium (Duoneb) 3 ml Q4HRS W/A 06/01/20 14:00 06/06/20 05:37 3 ML Allopurinol (Zyloprim) 300 mg DAILY 06/01/20 13:00 06/05/20 08:15 300 MG Amoxicillin/ Clavulanate Potassium (Augmentin 875/ 125mg) 1 tab BID 06/05/20 10:00 06/05/20 21:07 1 TAB Aspirin (Ecotrin) 325 mg DAILYWBKFT 06/01/20 13:00 06/05/20 08:15 325 MG Atorvastatin Calcium (Lipitor) 5 mg QHS 06/01/20 21:00 06/05/20 21:07 5 MG Budesonide (Pulmicort) 0.5 mg RTBID 06/02/20 08:00 06/06/20 05:37 0.5 MG Cefazolin Sodium 1 gm/Sodium Chloride 500 ml @ 500 mls/hr 1X ONCE 06/01/20 17:30 06/01/20 18:29 DC 06/01/20 18:22 Ceftriaxone Sodium (Rocephin) 2 gm 1X ONCE 06/01/20 06:45 06/01/20 06:46 DC 06/01/20 07:23 2 GM Cellulose (Surgicel Fibrillar 1x2) 1 each STK-MED ONCE 06/01/20 17:45 06/01/20 17:45 DC 06/01/20 18:22 1 EACH Clonidine HCl (Catapres) 0.1 mg PRN Q6HRS PRN 06/01/20 12:30 Dexamethasone Sodium Phosphate (Decadron) 4 mg STK-MED ONCE 06/01/20 16:52 06/01/20 16:52 DC Docusate Sodium (Colace) 100 mg PRN BID PRN 06/01/20 12:30 Duloxetine HCl (Cymbalta) 60 mg DAILY 06/01/20 13:00 06/05/20 08:15 60 MG Enoxaparin Sodium (Lovenox 40mg Syringe) 40 mg Q24H 06/01/20 12:30 06/01/20 13:03 DC Enoxaparin Sodium (Lovenox 80mg Syringe) 80 mg Q12HR 06/01/20 13:15 06/01/20 20:18 DC Fentanyl Citrate (Fentanyl 2ml Vial) 50 mcg PRN Q5MIN PRN 06/01/20 19:45 06/02/20 09:02 DC 06/01/20 21:46 50 MCG Ferrous Sulfate (Feosol) 325 mg BIDWMEALS 06/01/20 17:00 06/05/20 16:57 325 MG Furosemide (Lasix) 20 mg 1X ONCE 06/03/20 11:15 06/03/20 11:17 DC 06/03/20 12:07 20 MG Glycopyrrolate (Robinul) 1 mg STK-MED ONCE 06/01/20 16:51 06/01/20 16:52 DC Guaifenesin (Robitussin) 200 mg PRN Q4HRS PRN 06/01/20 12:30 Heparin Sodium (Porcine) (Heparin Sodium) 1,150 unit PRN Q6HRS PRN 06/01/20 20:30 06/02/20 06:44 DC Heparin Sodium (Porcine) 5000 unit/Sodium Chloride 505 ml @ 505 mls/hr 1X ONCE 06/01/20 17:30 06/01/20 18:29 DC 06/01/20 18:22 Heparin Sodium/ Dextrose 250 ml @ 12.144 mls/ hr CONT PRN 06/01/20 21:00 06/05/20 10:03 DC 06/04/20 22:25 12.144 MLS/HR Hydromorphone HCl (Dilaudid) 0.5 mg PRN Q10MIN PRN 06/01/20 19:45 06/02/20 09:02 DC Info (Anti-Coagulation Monitoring By Pharmacy) 1 each PRN DAILY PRN 06/01/20 20:30 06/04/20 15:49 1 EACH Info (CONTRAST GIVEN -- Rx MONITORING) 1 each PRN DAILY PRN 06/01/20 05:00 06/03/20 04:59 DC Info (Icu Electrolyte Protocol) 1 ea CONT PRN PRN 06/04/20 11:00 Iohexol (Omnipaque 300 Mg/ml) 75 ml 1X ONCE 06/01/20 05:00 06/01/20 05:01 DC 06/01/20 05:14 75 ML Lactobacillus Rhamnosus (Culturelle) 1 cap BID 06/01/20 21:00 06/05/20 21:07 1 CAP Lidocaine HCl (Lidocaine Pf 2% Vial) 5 ml STK-MED ONCE 06/01/20 16:52 06/01/20 16:52 DC Lidocaine HCl (Xylocaine-Mpf 1% 2ml Vial) 2 ml PRN 1X PRN 06/01/20 19:45 06/02/20 09:02 DC Midazolam HCl (Versed) 2 mg STK-MED ONCE 06/01/20 16:51 06/01/20 16:52 DC Morphine Sulfate (Morphine Sulfate) 2 mg PRN Q2HR PRN 06/02/20 00:00 06/03/20 12:07 2 MG Neostigmine [place] (Neostigmine Methylsulfate) 5 mg STK-MED ONCE 06/01/20 16:51 06/01/20 16:51 DC Ondansetron HCl (Zofran) 4 mg PRN Q6HRS PRN 06/01/20 19:45 06/02/20 09:02 DC Pantoprazole Sodium (PROTONIX VIAL for IV PUSH) 40 mg DAILYAC 06/03/20 11:30 06/04/20 08:06 DC 06/03/20 12:06 40 MG Pantoprazole Sodium (Protonix) 40 mg DAILYAC 06/01/20 16:30 06/06/20 06:21 40 MG Phenylephrine HCl (PHENYLEPHRINE in 0.9% NACL PF) 1 mg STK-MED ONCE 06/01/20 16:54 06/01/20 16:55 DC Piperacillin Sod/ Tazobactam Sod 3.375 gm/Sodium Chloride 50 ml @ 100 mls/hr Q6HRS 06/01/20 12:30 06/05/20 09:15 DC 06/05/20 05:52 100 MLS/HR Potassium Chloride (Klor-Con) 20 meq 1X ONCE 06/04/20 17:30 06/04/20 17:31 DC 06/04/20 17:14 20 MEQ Prochlorperazine Edisylate (Compazine) 5 mg PACU PRN PRN 06/01/20 19:45 06/02/20 09:02 DC Propofol (Diprivan) 200 mg STK-MED ONCE 06/01/20 16:52 06/01/20 16:53 DC Ringer's Solution 1,000 ml @ 30 mls/hr Q24H 06/01/20 19:38 06/01/20 22:04 DC Rivaroxaban (Xarelto) 20 mg DAILYWBKFT 06/26/20 08:00 Rocuronium [place] (Zemuron) 50 mg STK-MED ONCE 06/01/20 19:11 06/01/20 19:11 DC Sevoflurane (Ultane) 90 ml STK-MED ONCE 06/01/20 16:50 06/01/20 16:51 DC Sodium Monofluorophosphate (Fleet Adult) 133 ml PRN DAILY PRN 06/01/20 12:30 Sodium Chloride 1,000 ml @ 100 mls/hr Q10H 06/01/20 22:00 06/05/20 10:03 DC 06/05/20 00:15 100 MLS/HR Sodium Chloride (Normal Saline Flush) 3 ml QSHIFT PRN 06/01/20 12:30 Succinylcholine Chloride (Anectine) 200 mg STK-MED ONCE 06/01/20 16:51 06/01/20 16:51 DC Labs: Lab Laboratory Tests Test 06/06/20 06:30 White Blood Count 14.6 x10^3/uL (4.0-11.0) Red Blood Count 3.87 x10^6/uL (3.50-5.40) Hemoglobin 9.2 g/dL (12.0-15.5) Hematocrit 29.5 % (36.0-47.0) Mean Corpuscular Volume 76 fL (79-100) Mean Corpuscular Hemoglobin 24 pg (25-35) Mean Corpuscular Hemoglobin Concent 31 g/dL (31-37) Red Cell Distribution Width 27.6 % (11.5-14.5) Platelet Count 257 x10^3/uL (140-400) Neutrophils (%) (Auto) 76 % (31-73) Lymphocytes (%) (Auto) 13 % (24-48) Monocytes (%) (Auto) 9 % (0-9) Eosinophils (%) (Auto) 2 % (0-3) Basophils (%) (Auto) 1 % (0-3) Neutrophils # (Auto) 11.0 x10^3/uL (1.8-7.7) Lymphocytes # (Auto) 1.9 x10^3/uL (1.0-4.8) Monocytes # (Auto) 1.3 x10^3/uL (0.0-1.1) Eosinophils # (Auto) 0.2 x10^3/uL (0.0-0.7) Basophils # (Auto) 0.1 x10^3/uL (0.0-0.2) Sodium Level 141 mmol/L (136-145) Potassium Level 3.1 mmol/L (3.5-5.1) Chloride Level 104 mmol/L (98-107) Carbon Dioxide Level 25 mmol/L (21-32) Anion Gap 12 (6-14) Blood Urea Nitrogen 13 mg/dL (7-20) Creatinine 0.6 mg/dL (0.6-1.0) Estimated GFR (Cockcroft-Gault) 99.1 Glucose Level 94 mg/dL (70-99) Calcium Level 8.1 mg/dL (8.5-10.1) Objective: Assessment: Mesenteric ischemia 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 s/p expl lap, REX and superior mesenteric artery Lexie thrombectomy on, 06/01. Abdominal pain, nausea, and vomiting, most likely secondary to mesenteric ischemia; Leukocytosis is reactive, in part steroids and surgery Tobaccoism Chronic obstructive pulmonary disease. Hypertension. Hyperlipidemia. Diabetes. Plan: Plan of Care Continue Augmentin BC neg to date Local wound care as directed. Maintain aspiration precautions D/w nursing JACOB RAPHAEL MD Jun 06, 2020 08:08
--- NOTE | 2020-06-06 08:26 | PDOC ---
DATE OF SERVICE: DATE: 06/06/20 TIME: 08:23 GENERAL General: vss and afebrile. awake and alert. sob at 3 am and not back to sleep since and O2 needs increased to 3.5L/NC. chest with some bilateral crackles, heart regular, abdomen soft and benign, no edema. K+ 3.1 and extra replacement ordered along with cxr this am. breathing treatment during night without much, if any, help with sob. ate some yesterday but appetite not good to date. no bm to date. unsure dedicated regional driver of hypokalemia with med review. VITAL SIGNS/I&O Vital Signs/I&O: Vital Signs Date Time Temp Pulse Resp B/P (MAP) Pulse Ox O2 Delivery O2 Flow Rate FiO2 06/06/20 05:40 99 Nasal Cannula 3.5 06/06/20 03:00 98.2 104 18 165/75 (105) 98.2 I & O 06/05/20 06/05/20 06/06/20 15:00 23:00 07:00 Intake Total 600 ml 410 ml 300 ml Output Total 450 ml 200 ml 250 ml Balance 150 ml 210 ml 50 ml ALLERGIES Allergies: Allergies Coded Allergies Type Severity Reaction Last Updated Verified shrimp Allergy Intermediate Rash 12/12/19 Yes MEDS Medications: Current Medications Medications (Trade) Dose Ordered Sig/Kira Route PRN Reason Start Time Stop Time Status Last Admin Dose Admin Amoxicillin/ Clavulanate Potassium (Augmentin 875/ 125mg) 1 tab BID PO 06/05/20 10:00 06/05/20 21:07 Rivaroxaban (Xarelto) 15 mg BIDWMEALS PO 06/05/20 11:00 06/25/20 17:01 06/05/20 16:57 LAB Lab: Laboratory Tests Test 06/06/20 06:30 White Blood Count 14.6 x10^3/uL (4.0-11.0) H Red Blood Count 3.87 x10^6/uL (3.50-5.40) Hemoglobin 9.2 g/dL (12.0-15.5) L Hematocrit 29.5 % (36.0-47.0) L Mean Corpuscular Volume 76 fL (79-100) L Mean Corpuscular Hemoglobin 24 pg (25-35) L Mean Corpuscular Hemoglobin Concent 31 g/dL (31-37) Red Cell Distribution Width 27.6 % (11.5-14.5) H Platelet Count 257 x10^3/uL (140-400) Neutrophils (%) (Auto) 76 % (31-73) H Lymphocytes (%) (Auto) 13 % (24-48) L Monocytes (%) (Auto) 9 % (0-9) Eosinophils (%) (Auto) 2 % (0-3) Basophils (%) (Auto) 1 % (0-3) Neutrophils # (Auto) 11.0 x10^3/uL (1.8-7.7) H Lymphocytes # (Auto) 1.9 x10^3/uL (1.0-4.8) Monocytes # (Auto) 1.3 x10^3/uL (0.0-1.1) H Eosinophils # (Auto) 0.2 x10^3/uL (0.0-0.7) Basophils # (Auto) 0.1 x10^3/uL (0.0-0.2) Sodium Level 141 mmol/L (136-145) Potassium Level 3.1 mmol/L (3.5-5.1) L Chloride Level 104 mmol/L (98-107) Carbon Dioxide Level 25 mmol/L (21-32) Anion Gap 12 (6-14) Blood Urea Nitrogen 13 mg/dL (7-20) Creatinine 0.6 mg/dL (0.6-1.0) Estimated GFR (Cockcroft-Gault) 99.1 Glucose Level 94 mg/dL (70-99) Calcium Level 8.1 mg/dL (8.5-10.1) L Laboratory Tests 06/06/20 06:30 Laboratory Tests 06/06/20 06:30 Justicifation of Admission Dx: Justifications for Admission: Justification of Admission Dx: Yes Sepsis: Infection Nutrition Consultation Dietary Evaluation: Recommendations by RD: Dietary education by RD, Increase Calorie Intake, Protein supplementation Comments: REC cardiac/ADA diet per pmhx, will adjust diet order as needed REC Glucerna (chocolate) w/dinner trays Expected Outcomes/Goals: diet advancement - met, new goal established new goal 06/05: PO intake to meet >75% est needs Interpretation of weight loss: >5% in 1 month Malnutrition Findings: Food and Nutrition Intake (Sev: <50% est energy req 5days Weight Status: Appropriate ANABEL MARTÍNEZ MD Jun 06, 2020 08:26
[2020-06-06] MEDS ORDERED: POTASSIUM CHLORIDE 20 MEQ TABLET.ER. PO ONE ×2 (08:30→13:00)
[2020-06-06] MEDS: DULoxetine HCL 30 MG CAPSULE.DR PO SCH (08:56)
[2020-06-06] MEDS: ASPIRIN ENTERIC COATED 325 MG TABLET.DR. PO SCH (08:56)
[2020-06-06] MEDS: LACTOBACILLUS RHAMNOSUS GG 1 CAPSULE. PO SCH ×2 (08:57→20:23)
[2020-06-06] MEDS: FERROUS SULFATE 325 MG TABLET. PO SCH ×2 (08:57→17:42)
[2020-06-06] MEDS: RIVAROXABAN 15 MG TABLET. PO SCH ×2 (08:57→17:42)
[2020-06-06] MEDS: ALLOPURINOL 300 MG TABLET. PO SCH (08:57)
[2020-06-06] MEDS: POTASSIUM CHLORIDE 20 MEQ TABLET.ER. PO SCH (08:57)
[2020-06-06] MEDS: AMOXICILLIN/K CLAV 875/125MG TABLET. PO SCH ×2 (08:57→20:23)
--- NOTE | 2020-06-06 10:52 | PDOC ---
PULMONARY PROGRESS NOTES DATE: 06/06/20 TIME: 10:48 Subjective now on 4 liters N/C, reports SOB over night no current soa, no increased cough, no cp , no abdominal pain Vitals Vital Signs Date Time Temp Pulse Resp B/P (MAP) Pulse Ox O2 Delivery O2 Flow Rate FiO2 06/06/20 08:00 Nasal Cannula 3.0 06/06/20 07:00 98.3 105 22 149/72 (97) 93 98.3 ROS: No Nausea, No Chest Pain, No Abdominal Pain, No Increase Cough General: Alert, No acute distress Lungs: Clear Cardiovascular: S1 Abdomen: Soft, Non-tender Neuro Exam: Alert, Oriented Extremities: No Edema Skin: Warm Labs Laboratory Tests Test 06/04/20 13:28 06/04/20 19:30 06/05/20 06:15 06/06/20 06:30 Heparin Anti-Xa Act, Unfractionated 0.39 IU/mL (0.30-0.70) 0.43 IU/mL (0.30-0.70) 0.21 IU/mL (0.30-0.70) White Blood Count 14.1 x10^3/uL (4.0-11.0) 14.6 x10^3/uL (4.0-11.0) Red Blood Count 3.72 x10^6/uL (3.50-5.40) 3.87 x10^6/uL (3.50-5.40) Hemoglobin 8.9 g/dL (12.0-15.5) 9.2 g/dL (12.0-15.5) Hematocrit 28.3 % (36.0-47.0) 29.5 % (36.0-47.0) Mean Corpuscular Volume 76 fL (79-100) 76 fL (79-100) Mean Corpuscular Hemoglobin 24 pg (25-35) 24 pg (25-35) Mean Corpuscular Hemoglobin Concent 31 g/dL (31-37) 31 g/dL (31-37) Red Cell Distribution Width 27.3 % (11.5-14.5) 27.6 % (11.5-14.5) Platelet Count 200 x10^3/uL (140-400) 257 x10^3/uL (140-400) Neutrophils (%) (Auto) 72 % (31-73) 76 % (31-73) Lymphocytes (%) (Auto) 17 % (24-48) 13 % (24-48) Monocytes (%) (Auto) 8 % (0-9) 9 % (0-9) Eosinophils (%) (Auto) 2 % (0-3) 2 % (0-3) Basophils (%) (Auto) 1 % (0-3) 1 % (0-3) Neutrophils # (Auto) 10.1 x10^3/uL (1.8-7.7) 11.0 x10^3/uL (1.8-7.7) Lymphocytes # (Auto) 2.4 x10^3/uL (1.0-4.8) 1.9 x10^3/uL (1.0-4.8) Monocytes # (Auto) 1.2 x10^3/uL (0.0-1.1) 1.3 x10^3/uL (0.0-1.1) Eosinophils # (Auto) 0.3 x10^3/uL (0.0-0.7) 0.2 x10^3/uL (0.0-0.7) Basophils # (Auto) 0.1 x10^3/uL (0.0-0.2) 0.1 x10^3/uL (0.0-0.2) Segmented Neutrophils % 79 % (35-66) Band Neutrophils % 1 % (0-9) Lymphocytes % 12 % (24-48) Monocytes % 6 % (0-10) Eosinophils % 2 % (0-5) Platelet Estimate Adequate (ADEQUATE) Polychromasia Present Hypochromasia Present Poikilocytosis Present Anisocytosis Present Microcytosis Present Macrocytosis Present Spherocytes Few RBC Morphology Bizarre Forms Present Sodium Level 140 mmol/L (136-145) 141 mmol/L (136-145) Potassium Level 3.2 mmol/L (3.5-5.1) 3.1 mmol/L (3.5-5.1) Chloride Level 105 mmol/L (98-107) 104 mmol/L (98-107) Carbon Dioxide Level 28 mmol/L (21-32) 25 mmol/L (21-32) Anion Gap 7 (6-14) 12 (6-14) Blood Urea Nitrogen 11 mg/dL (7-20) 13 mg/dL (7-20) Creatinine 0.7 mg/dL (0.6-1.0) 0.6 mg/dL (0.6-1.0) Estimated GFR (Cockcroft-Gault) 83.0 99.1 Glucose Level 91 mg/dL (70-99) 94 mg/dL (70-99) Calcium Level 7.8 mg/dL (8.5-10.1) 8.1 mg/dL (8.5-10.1) Laboratory Tests Test 06/06/20 06:30 White Blood Count 14.6 x10^3/uL (4.0-11.0) Red Blood Count 3.87 x10^6/uL (3.50-5.40) Hemoglobin 9.2 g/dL (12.0-15.5) Hematocrit 29.5 % (36.0-47.0) Mean Corpuscular Volume 76 fL (79-100) Mean Corpuscular Hemoglobin 24 pg (25-35) Mean Corpuscular Hemoglobin Concent 31 g/dL (31-37) Red Cell Distribution Width 27.6 % (11.5-14.5) Platelet Count 257 x10^3/uL (140-400) Neutrophils (%) (Auto) 76 % (31-73) Lymphocytes (%) (Auto) 13 % (24-48) Monocytes (%) (Auto) 9 % (0-9) Eosinophils (%) (Auto) 2 % (0-3) Basophils (%) (Auto) 1 % (0-3) Neutrophils # (Auto) 11.0 x10^3/uL (1.8-7.7) Lymphocytes # (Auto) 1.9 x10^3/uL (1.0-4.8) Monocytes # (Auto) 1.3 x10^3/uL (0.0-1.1) Eosinophils # (Auto) 0.2 x10^3/uL (0.0-0.7) Basophils # (Auto) 0.1 x10^3/uL (0.0-0.2) Sodium Level 141 mmol/L (136-145) Potassium Level 3.1 mmol/L (3.5-5.1) Chloride Level 104 mmol/L (98-107) Carbon Dioxide Level 25 mmol/L (21-32) Anion Gap 12 (6-14) Blood Urea Nitrogen 13 mg/dL (7-20) Creatinine 0.6 mg/dL (0.6-1.0) Estimated GFR (Cockcroft-Gault) 99.1 Glucose Level 94 mg/dL (70-99) Calcium Level 8.1 mg/dL (8.5-10.1) Medications Active Scripts Medications Dose Route/Sig Max Daily Dose Days Date Category Feosol (Ferrous Sulfate) 325 Mg Tablet 325 Mg PO BID 90 05/31/20 Rx Potassium Chloride 20 Meq Tablet.er 20 Meq PO AFTRNOON 30 12/19/19 Rx Aspirin Ec (Aspirin) 325 Mg Tablet. 325 Mg PO DAILYWBKFT 90 12/19/19 Rx Protonix (Pantoprazole Sodium) 20 Mg Tablet. 40 Mg PO DAILY 02/20/19 Reported Actos (Pioglitazone Hcl) 30 Mg Tablet 30 Mg PO DAILY 01/25/19 Reported Pravastatin Sodium 20 Mg Tablet 20 Mg PO QHS 07/02/16 Reported Allopurinol 100 Mg Tablet 300 Mg PO DAILY 11/20/15 Reported Cymbalta (Duloxetine Hcl) 60 Mg Capsule.dr 60 Mg PO DAILY 11/20/15 Reported Comments cxr diffuse interstitial infilt Impression . 1. Acute respiratory failure, expected multifactorial in etiology-- worsening now requiring 4 liters N/C 2. Abnormal chest x-ray and CT of the chest. 3. Chronic obstructive pulmonary disease. 4. Tobacco habituation. 5. Acute mesenteric ischemia, status post exploratory laparotomy, superior mesenteric artery thrombectomy, extensive lysis, . 6. Hypertension. 7. Hyperlipidemia. 8. Coronary artery disease. 9. recent anemia-- HGB stable Plan . 1. Titrate FiO2 to keep O2 saturation 92%, 2 liters N/C which is baseline 02 requirement for her, now on 4 liters N/C, will obtain CXR today 2. Continue bronchodilator. 3. Pulmicort b.i.d. 4. incentive spirometer, to use multiple times an hour, encourage use 5. stable 2 mm right lung nodule/ basal atelectasis 6 PO AC-- xarellto 7. Follow vasulcar surgery recs D/W PANCHO DUMONT MD Jun 06, 2020 10:52
[2020-06-06 11:00] VITALS: BP 169/79
--- NOTE | 2020-06-06 11:28 | RAD ---
EXAM: CHEST 1 VIEW History: Shortness of breath COMPARISON: 06/01/2020 TECHNIQUE: Single portable radiograph of the chest FINDINGS: Low lung volumes and technique accentuates heart size and pulmonary vascularity. Mild cardiomegaly. Moderate prominent bilateral interstitial lung markings likely congestive changes or interstitial infiltrates. The costophrenic sulci are clear and well demarcated. Right internal jugular line is unchanged. IMPRESSION: Moderate prominent bilateral interstitial lung markings likely interstitial infiltrates or edema. Follow-up to resolution. Electronically signed by: Robert Christiansen MD (06/06/2020 11:25 AM) [id number]
--- NOTE | 2020-06-06 12:15 | NUR ---
SS following up with discharge planning. SS reviewed pt chart and discussed with pt RN. Pt is currently requiring oxygen. PT/OT recommended home independent. Pt has no home oxygen and will need six minute walk to assess oxygen needs. Potassium being monitored today. SS will continue to follow for discharge planning.
--- NOTE | 2020-06-06 12:16 | PDOC ---
Date of Service: DATE: 06/06/20 TIME: 12:14 Subjective: Subjective: Couldn't breathe last night. No GI concerns. Objective: Vital Signs: Vital Signs Date Time Temp Pulse Resp B/P (MAP) Pulse Ox O2 Delivery O2 Flow Rate FiO2 06/06/20 11:35 92 Nasal Cannula 3.5 06/06/20 11:00 98.1 105 22 169/79 (109) 98.1 Labs: Laboratory Tests Test 06/06/20 06:30 White Blood Count 14.6 x10^3/uL Red Blood Count 3.87 x10^6/uL Hemoglobin 9.2 g/dL Hematocrit 29.5 % Mean Corpuscular Volume 76 fL Mean Corpuscular Hemoglobin 24 pg Mean Corpuscular Hemoglobin Concent 31 g/dL Red Cell Distribution Width 27.6 % Platelet Count 257 x10^3/uL Neutrophils (%) (Auto) 76 % Lymphocytes (%) (Auto) 13 % Monocytes (%) (Auto) 9 % Eosinophils (%) (Auto) 2 % Basophils (%) (Auto) 1 % Neutrophils # (Auto) 11.0 x10^3/uL Lymphocytes # (Auto) 1.9 x10^3/uL Monocytes # (Auto) 1.3 x10^3/uL Eosinophils # (Auto) 0.2 x10^3/uL Basophils # (Auto) 0.1 x10^3/uL Sodium Level 141 mmol/L Potassium Level 3.1 mmol/L Chloride Level 104 mmol/L Carbon Dioxide Level 25 mmol/L Anion Gap 12 Blood Urea Nitrogen 13 mg/dL Creatinine 0.6 mg/dL Estimated GFR (Cockcroft-Gault) 99.1 Glucose Level 94 mg/dL Calcium Level 8.1 mg/dL BLOOD CULTURE Final NO GROWTH AFTER 5 DAYS Imaging: CXR IMPRESSION: Moderate prominent bilateral interstitial lung markings likely interstitial infiltrates or edema. Follow-up to resolution. PE: GEN: NAD LUNGS: diminished HEART: RRR ABD: NABS, S/ND/NT NEURO/PSYCH: A & O 3, anxious A/P: Resp failure S/p SMA thrombectomy, REX, expl laparotomy 06/01/20 Chronic ELIDA - improved w/ transfusions, restarted PO iron last week, last 'scopes in 2019 GERD - on PPI -- Continue same per GI. Justicifation of Admission Dx: Justifications for Admission: Justification of Admission Dx: Yes Sepsis: Infection ELDA HUTTON Jun 06, 2020 12:16
[2020-06-06] MEDS ORDERED: FUROSEMIDE 40 MG/4 ML VIAL. IVP ONE (13:00)
[2020-06-06 15:00] VITALS: BP 135/58
[2020-06-06] MEDS: ANTI-COAG MONITOR BY PHARMACY. MC PRN (15:09)
--- NOTE | 2020-06-06 15:37 | PDOC ---
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 She has had return of flatus but no bowel movement yet, denies any abdominal pain, has been able to eat without any postprandial pain and without nausea or vomiting. On physical exam she is awake alert and oriented normal conversation in no distress her abdomen is soft, nontender, no peritoneal signs, incision steph look good, appropriate postop exam Objective Objective Vital Signs Date Time Temp Pulse Resp B/P (MAP) Pulse Ox O2 Delivery O2 Flow Rate FiO2 06/06/20 15:31 Nasal Cannula 3.5 06/06/20 15:00 98.3 97 20 135/58 (83) 97 98.3 Intake and Output 06/06/20 07:00 Intake Total 1310 ml Output Total 900 ml Balance 410 ml Intake Oral 1310 ml Output Urine Total 900 ml # Voids 3 Assessment Assessment Problems Medical Problems: (1) Acute PN (pyelonephritis) Status: Acute (2) Periumbilical pain Status: Acute Plan Plan of Care Doing well status post urgent declot of thrombosed mesenteric bypass graft Having return of bowel function with flatus but no bowel movement yet, tolerating oral intake, abdominal exam is totally benign. Recommend removing her IJ catheter so that she does not get bloodstream infection and infection of her bypass graft which would be catastrophic Up out of bed ambulate, milk of magnesia etc. to stimulate bowel movement continue to advance diet as tolerated. Comment Review of Relevant I have reviewed the following items lucia (where applicable) has been applied. Labs Laboratory Tests Test 06/04/20 19:30 06/05/20 06:15 06/06/20 06:30 Heparin Anti-Xa Act, Unfractionated 0.43 IU/mL (0.30-0.70) 0.21 IU/mL (0.30-0.70) White Blood Count 14.1 x10^3/uL (4.0-11.0) 14.6 x10^3/uL (4.0-11.0) Red Blood Count 3.72 x10^6/uL (3.50-5.40) 3.87 x10^6/uL (3.50-5.40) Hemoglobin 8.9 g/dL (12.0-15.5) 9.2 g/dL (12.0-15.5) Hematocrit 28.3 % (36.0-47.0) 29.5 % (36.0-47.0) Mean Corpuscular Volume 76 fL (79-100) 76 fL (79-100) Mean Corpuscular Hemoglobin 24 pg (25-35) 24 pg (25-35) Mean Corpuscular Hemoglobin Concent 31 g/dL (31-37) 31 g/dL (31-37) Red Cell Distribution Width 27.3 % (11.5-14.5) 27.6 % (11.5-14.5) Platelet Count 200 x10^3/uL (140-400) 257 x10^3/uL (140-400) Neutrophils (%) (Auto) 72 % (31-73) 76 % (31-73) Lymphocytes (%) (Auto) 17 % (24-48) 13 % (24-48) Monocytes (%) (Auto) 8 % (0-9) 9 % (0-9) Eosinophils (%) (Auto) 2 % (0-3) 2 % (0-3) Basophils (%) (Auto) 1 % (0-3) 1 % (0-3) Neutrophils # (Auto) 10.1 x10^3/uL (1.8-7.7) 11.0 x10^3/uL (1.8-7.7) Lymphocytes # (Auto) 2.4 x10^3/uL (1.0-4.8) 1.9 x10^3/uL (1.0-4.8) Monocytes # (Auto) 1.2 x10^3/uL (0.0-1.1) 1.3 x10^3/uL (0.0-1.1) Eosinophils # (Auto) 0.3 x10^3/uL (0.0-0.7) 0.2 x10^3/uL (0.0-0.7) Basophils # (Auto) 0.1 x10^3/uL (0.0-0.2) 0.1 x10^3/uL (0.0-0.2) Segmented Neutrophils % 79 % (35-66) Band Neutrophils % 1 % (0-9) Lymphocytes % 12 % (24-48) Monocytes % 6 % (0-10) Eosinophils % 2 % (0-5) Platelet Estimate Adequate (ADEQUATE) Polychromasia Present Hypochromasia Present Poikilocytosis Present Anisocytosis Present Microcytosis Present Macrocytosis Present Spherocytes Few RBC Morphology Bizarre Forms Present Sodium Level 140 mmol/L (136-145) 141 mmol/L (136-145) Potassium Level 3.2 mmol/L (3.5-5.1) 3.1 mmol/L (3.5-5.1) Chloride Level 105 mmol/L (98-107) 104 mmol/L (98-107) Carbon Dioxide Level 28 mmol/L (21-32) 25 mmol/L (21-32) Anion Gap 7 (6-14) 12 (6-14) Blood Urea Nitrogen 11 mg/dL (7-20) 13 mg/dL (7-20) Creatinine 0.7 mg/dL (0.6-1.0) 0.6 mg/dL (0.6-1.0) Estimated GFR (Cockcroft-Gault) 83.0 99.1 Glucose Level 91 mg/dL (70-99) 94 mg/dL (70-99) Calcium Level 7.8 mg/dL (8.5-10.1) 8.1 mg/dL (8.5-10.1) Laboratory Tests Test 06/06/20 06:30 White Blood Count 14.6 x10^3/uL (4.0-11.0) Red Blood Count 3.87 x10^6/uL (3.50-5.40) Hemoglobin 9.2 g/dL (12.0-15.5) Hematocrit 29.5 % (36.0-47.0) Mean Corpuscular Volume 76 fL (79-100) Mean Corpuscular Hemoglobin 24 pg (25-35) Mean Corpuscular Hemoglobin Concent 31 g/dL (31-37) Red Cell Distribution Width 27.6 % (11.5-14.5) Platelet Count 257 x10^3/uL (140-400) Neutrophils (%) (Auto) 76 % (31-73) Lymphocytes (%) (Auto) 13 % (24-48) Monocytes (%) (Auto) 9 % (0-9) Eosinophils (%) (Auto) 2 % (0-3) Basophils (%) (Auto) 1 % (0-3) Neutrophils # (Auto) 11.0 x10^3/uL (1.8-7.7) Lymphocytes # (Auto) 1.9 x10^3/uL (1.0-4.8) Monocytes # (Auto) 1.3 x10^3/uL (0.0-1.1) Eosinophils # (Auto) 0.2 x10^3/uL (0.0-0.7) Basophils # (Auto) 0.1 x10^3/uL (0.0-0.2) Sodium Level 141 mmol/L (136-145) Potassium Level 3.1 mmol/L (3.5-5.1) Chloride Level 104 mmol/L (98-107) Carbon Dioxide Level 25 mmol/L (21-32) Anion Gap 12 (6-14) Blood Urea Nitrogen 13 mg/dL (7-20) Creatinine 0.6 mg/dL (0.6-1.0) Estimated GFR (Cockcroft-Gault) 99.1 Glucose Level 94 mg/dL (70-99) Calcium Level 8.1 mg/dL (8.5-10.1) Microbiology 06/01/20 Blood Culture - Final, Complete NO GROWTH AFTER 5 DAYS Medications Current Medications Sodium Chloride 500 ml @ 500 mls/hr 1X ONCE IV Last administered on 06/01/20at 04:25; Start 06/01/20 at 04:15; Stop 06/01/20 at 05:14; Status DC Ondansetron HCl (Zofran) 4 mg 1X ONCE IVP Last administered on 06/01/20at 04:25; Start 06/01/20 at 04:15; Stop 06/01/20 at 04:16; Status DC Hydromorphone HCl (Dilaudid) 0.5 mg 1X ONCE IV Last administered on 06/01/20at 04:26; Start 06/01/20 at 04:15; Stop 06/01/20 at 04:16; Status DC Iohexol (Omnipaque 300 Mg/ml) 75 ml 1X ONCE IV Last administered on 06/01/20at 05:14; Start 06/01/20 at 05:00; Stop 06/01/20 at 05:01; Status DC Info (CONTRAST GIVEN -- Rx MONITORING) 1 each PRN DAILY PRN MC SEE COMMENTS; Start 06/01/20 at 05:00; Stop 06/03/20 at 04:59; Status DC Ceftriaxone Sodium (Rocephin) 2 gm 1X ONCE IVP Last administered on 06/01/20at 07:23; Start 06/01/20 at 06:45; Stop 06/01/20 at 06:46; Status DC Fentanyl Citrate (Fentanyl 2ml Vial) 50 mcg PRN Q1HR PRN IV PAIN Last administered on 06/01/20at 13:32; Start 06/01/20 at 06:45; Stop 06/02/20 at 06:44; Status DC Sodium Chloride 1,000 ml @ 125 mls/hr Q8H IV Last administered on 06/01/20at 07:22; Start 06/01/20 at 06:45; Stop 06/01/20 at 22:03; Status DC Piperacillin Sod/ Tazobactam Sod 3.375 gm/Sodium Chloride 50 ml @ 100 mls/hr Q6HRS IV Last administered on 06/05/20at 05:52; Start 06/01/20 at 12:30; Stop 06/05/20 at 09:15; Status DC Sodium Chloride (Normal Saline Flush) 3 ml QSHIFT PRN IV AFTER MEDS AND BLOOD DRAWS; Start 06/01/20 at 12:30 Sodium Chloride 1,000 ml @ 85 mls/hr [id number] IV ; Start 06/01/20 at 12:21; Stop 06/01/20 at 12:37; Status DC Ondansetron HCl (Zofran) 4 mg PRN Q4HRS PRN IV NAUSEA/VOMITING; Start 06/01/20 at 12:30 Acetaminophen (Tylenol) 650 mg PRN Q4HRS PRN PO TEMP OVER 100.4F; Start 06/01/20 at 12:30 Al Hydroxide/Mg Hydroxide (Mylanta Plus Xs) 30 ml PRN DAILY PRN PO HEARTBURN / GAS; Start 06/01/20 at 12:30 Clonidine HCl (Catapres) 0.1 mg PRN Q6HRS PRN PO SBP>160 OR DBP>90; Start 06/01/20 at 12:30 Sodium Monofluorophosphate (Fleet Adult) 133 ml PRN DAILY PRN SD CONSTIPATION; Start 06/01/20 at 12:30 Docusate Sodium (Colace) 100 mg PRN BID PRN PO HARD STOOLS; Start 06/01/20 at 12:30 Albuterol/ Ipratropium (Duoneb) 3 ml Q4HRS W/A NEB Last administered on 06/06/20at 15:30; Start 06/01/20 at 14:00 Guaifenesin (Robitussin) 200 mg PRN Q4HRS PRN PO COUGH; Start 06/01/20 at 12:30 Enoxaparin Sodium (Lovenox 40mg Syringe) 40 mg Q24H SQ ; Start 06/01/20 at 12:30; Stop 06/01/20 at 13:03; Status DC Allopurinol (Zyloprim) 300 mg DAILY PO Last administered on 06/06/20at 08:57; Start 06/01/20 at 13:00 Aspirin (Ecotrin) 325 mg DAILYWBKFT PO Last administered on 06/06/20at 08:56; Start 06/01/20 at 13:00 Ferrous Sulfate (Feosol) 325 mg BIDWMEALS PO Last administered on 06/06/20at 08:57; Start 06/01/20 at 17:00 Duloxetine HCl (Cymbalta) 60 mg DAILY PO Last administered on 06/06/20at 08:56; Start 06/01/20 at 13:00 Pantoprazole Sodium (Protonix) 40 mg DAILYAC PO Last administered on 06/06/20at 06:21; Start 06/01/20 at 16:30 Potassium Chloride (Klor-Con) 20 meq DAILY@1300 PO Last administered on 06/06/20 at 08:57; Start 06/01/20 at 13:00 Atorvastatin Calcium (Lipitor) 5 mg QHS PO Last administered on 06/05/20at 21:07; Start 06/01/20 at 21:00 Enoxaparin Sodium (Lovenox 80mg Syringe) 80 mg Q12HR SQ ; Start 06/01/20 at 13:15; Stop 06/01/20 at 20:18; Status DC Lactobacillus Rhamnosus (Culturelle) 1 cap BID PO Last administered on 06/06/20at 08:57; Start 06/01/20 at 21:00 Sevoflurane (Ultane) 90 ml STK-MED ONCE IH ; Start 06/01/20 at 16:50; Stop 06/01/20 at 16:51; Status DC Succinylcholine Chloride (Anectine) 200 mg STK-MED ONCE .ROUTE ; Start 06/01/20 at 16:51; Stop 06/01/20 at 16:51; Status DC Neostigmine [place] (Neostigmine Methylsulfate) 5 mg STK-MED ONCE .ROUTE ; Start 06/01/20 at 16:51; Stop 06/01/20 at 16:51; Status DC Rocuronium [place] (Zemuron) 50 mg STK-MED ONCE .ROUTE ; Start 06/01/20 at 16:51; Stop 06/01/20 at 16:51; Status DC Fentanyl Citrate (Fentanyl 2ml Vial) 100 mcg STK-MED ONCE .ROUTE ; Start 06/01/20 at 16:51; Stop 06/01/20 at 16:51; Status DC Midazolam HCl (Versed) 2 mg STK-MED ONCE .ROUTE ; Start 06/01/20 at 16:51; Stop 06/01/20 at 16:52; Status DC Glycopyrrolate (Robinul) 1 mg STK-MED ONCE .ROUTE ; Start 06/01/20 at 16:51; St op 06/01/20 at 16:52; Status DC Heparin Sodium (Porcine) (Heparin Sodium) 10,000 unit STK-MED ONCE .ROUTE ; Start 06/01/20 at 16:52; Stop 06/01/20 at 16:52; Status DC Dexamethasone Sodium Phosphate (Decadron) 4 mg STK-MED ONCE .ROUTE ; Start 06/01/20 at 16:52; Stop 06/01/20 at 16:52; Status DC Dexamethasone Sodium Phosphate (Decadron) 4 mg STK-MED ONCE .ROUTE ; Start 06/01/20 at 16:52; Stop 06/01/20 at 16:52; Status DC Ondansetron HCl (Zofran) 4 mg STK-MED ONCE .ROUTE ; Start 06/01/20 at 16:52; Stop 06/01/20 at 16:52; Status DC Lidocaine HCl (Lidocaine Pf 2% Vial) 5 ml STK-MED ONCE .ROUTE ; Start 06/01/20 at 16:52; Stop 06/01/20 at 16:52; Status DC Propofol (Diprivan) 200 mg STK-MED ONCE IV ; Start 06/01/20 at 16:52; Stop 06/01/20 at 16:53; Status DC Phenylephrine HCl (PHENYLEPHRINE in 0.9% NACL PF) 1 mg STK-MED ONCE IV ; Start 06/01/20 at 16:54; Stop 06/01/20 at 16:55; Status DC Cefazolin Sodium 1 gm/Sodium Chloride 500 ml @ 500 mls/hr 1X ONCE IRR Last administered on 06/01/20at 18:22; Start 06/01/20 at 17:30; Stop 06/01/20 at 18:29; Status DC Heparin Sodium (Porcine) 5000 unit/Sodium Chloride 505 ml @ 505 mls/hr 1X ONCE IRR Last administered on 06/01/20at 18:22; Start 06/01/20 at 17:30; Stop 06/01/20 at 18:29; Status DC Lidocaine HCl (Xylocaine-Mpf 1% 2ml Vial) 2 ml STK-MED ONCE .ROUTE ; Start 06/01/20 at 17:34; Stop 06/01/20 at 17:35; Status DC Heparin Sodium (Porcine) (Heparin Sodium) 10,000 unit STK-MED ONCE .ROUTE ; Start 06/01/20 at 17:45; Stop 06/01/20 at 17:45; Status DC Cellulose (Surgicel Fibrillar 1x2) 1 each STK-MED ONCE .ROUTE Last administered on 06/01/20at 18:22; Start 06/01/20 at 17:45; Stop 06/01/20 at 17:45; Status DC Fentanyl Citrate (Fentanyl 2ml Vial) 100 mcg STK-MED ONCE .ROUTE ; Start 06/01/20 at 18:42; Stop 06/01/20 at 18:43; Status DC Rocuronium [place] (Zemuron) 50 mg STK-MED ONCE .ROUTE ; Start 06/01/20 at 19:11; Stop 06/01/20 at 19:11; Status DC Fentanyl Citrate (Fentanyl 2ml Vial) 100 mcg STK-MED ONCE .ROUTE ; Start 06/01/20 at 19:24; Stop 06/01/20 at 19:25; Status DC Ondansetron HCl (Zofran) 4 mg PRN Q6HRS PRN IV NAUSEA/VOMITING; Start 06/01/20 at 19:45; Stop 06/02/20 at 09:02; Status DC Fentanyl Citrate (Fentanyl 2ml Vial) 25 mcg PRN Q5MIN PRN IV MILD PAIN 1-3; Start 06/01/20 at 19:45; Stop 06/02/20 at 09:02; Status DC Fentanyl Citrate (Fentanyl 2ml Vial) 50 mcg PRN Q5MIN PRN IV MODERATE TO SEVERE PAIN Last administered on 06/01/20at 21:46; Start 06/01/20 at 19:45; Stop 06/02/20 at 09:02; Status DC Morphine Sulfate (Morphine Sulfate) 1 mg PRN Q10MIN PRN IV SEVERE PAIN 7-10 Last administered on 06/01/20at 22:32; Start 06/01/20 at 19:45; Stop 06/02/20 at 09:02; Status DC Ringer's Solution 1,000 ml @ 30 mls/hr Q24H IV ; Start 06/01/20 at 19:38; Stop 06/01/20 at 22:04; Status DC Lidocaine HCl (Xylocaine-Mpf 1% 2ml Vial) 2 ml PRN 1X PRN ID PRIOR TO IV START; Start 06/01/20 at 19:45; Stop 06/02/20 at 09:02; Status DC Hydromorphone HCl (Dilaudid) 0.5 mg PRN Q10MIN PRN IV SEV PAIN, Second choice; Start 06/01/20 at 19:45; Stop 06/02/20 at 09:02; Status DC Prochlorperazine Edisylate (Compazine) 5 mg PACU PRN PRN IV NAUSEA, MRX1; Start 06/01/20 at 19:45; Stop 06/02/20 at 09:02; Status DC Heparin Sodium/ Dextrose 250 ml @ 12.144 mls/ hr CONT PRN IV PER PROTOCOL Last administered on 06/04/20at 22:25; Start 06/01/20 at 21:00; Stop 06/05/20 at 10:03; Status DC Heparin Sodium (Porcine) (Heparin Sodium) 2,300 unit PRN Q6HRS PRN IV FOR UFH LEVEL LESS THAN 0.2; Start 06/01/20 at 20:30; Stop 06/02/20 at 06:44; Status DC Heparin Sodium (Porcine) (Heparin Sodium) 1,150 unit PRN Q6HRS PRN IV FOR UFH LEVEL 0.2 - 0.29; Start 06/01/20 at 20:30; Stop 06/02/20 at 06:44; Status DC Info (Anti-Coagulation Monitoring By Pharmacy) 1 each PRN DAILY PRN MC SEE COM MENTS Last administered on 06/06/20at 15:09; Start 06/01/20 at 20:30 Sodium Chloride 1,000 ml @ 125 mls/hr CONT IV ; Start 06/01/20 at 22:00; Status UNV Sodium Chloride 1,000 ml @ 100 mls/hr Q10H IV Last administered on 06/05/20at 00:15; Start 06/01/20 at 22:00; Stop 06/05/20 at 10:03; Status DC Morphine Sulfate (Morphine Sulfate) 2 mg PRN Q2HR PRN IV PAIN Last administered on 06/03/20at 12:07; Start 06/02/20 at 00:00 Budesonide (Pulmicort) 0.5 mg RTBID NEB Last administered on 06/06/20at 05:37; Start 06/02/20 at 08:00 Pantoprazole Sodium (PROTONIX VIAL for IV PUSH) 40 mg DAILYAC IVP Last administered on 06/03/20at 12:06; Start 06/03/20 at 11:30; Stop 06/04/20 at 08:06; Status DC Furosemide (Lasix) 20 mg 1X ONCE IVP Last administered on 06/03/20at 12:07; St art 06/03/20 at 11:15; Stop 06/03/20 at 11:17; Status DC Info (Icu Electrolyte Protocol) 1 ea CONT PRN PRN MC PER PROTOCOL; Start 06/04/20 at 11:00 Potassium Chloride (Klor-Con) 20 meq 1X ONCE PO Last administered on 06/04/20at 17:14; Start 06/04/20 at 17:30; Stop 06/04/20 at 17:31; Status DC Amoxicillin/ Clavulanate Potassium (Augmentin 875/ 125mg) 1 tab BID PO Last administered on 06/06/20at 08:57; Start 06/05/20 at 10:00 Rivaroxaban (Xarelto) 15 mg BIDWMEALS PO Last administered on 06/06/20at 08:57; Start 06/05/20 at 11:00; Stop 06/25/20 at 17:01 Rivaroxaban (Xarelto) 20 mg DAILYWBKFT PO ; Start 06/26/20 at 08:00 Potassium Chloride (Klor-Con) 20 meq 1X ONCE PO Last administered on 06/06/20at 08:56; Start 06/06/20 at 08:30; Stop 06/06/20 at 08:31; Status DC Furosemide (Lasix) 40 mg 1X ONCE IVP Last administered on 06/06/20at 13:12; Start 06/06/20 at 13:00; Stop 06/06/20 at 13:01; Status DC Potassium Chloride (Klor-Con) 20 meq 1X ONCE PO Last administered on 06/06/20at 13:13; Start 06/06/20 at 13:00; Stop 06/06/20 at 13:01; Status DC Active Scripts Active Feosol (Ferrous Sulfate) 325 Mg Tablet 325 Mg PO BID 90 Days Potassium Chloride 20 Meq Tablet.er 20 Meq PO AFTRNOON 30 Days Aspirin Ec (Aspirin) 325 Mg Tablet. 325 Mg PO DAILYWBKFT 90 Days Reported Protonix (Pantoprazole Sodium) 20 Mg Tablet.dr 40 Mg PO DAILY Actos (Pioglitazone Hcl) 30 Mg Tablet 30 Mg PO DAILY Pravastatin Sodium 20 Mg Tablet 20 Mg PO QHS Allopurinol 100 Mg Tablet 300 Mg PO DAILY Cymbalta (Duloxetine Hcl) 60 Mg Capsule.dr 60 Mg PO DAILY Vitals/I & O Vital Sign - Last 24 Hours 06/05/20 06/05/20 06/05/20 06/05/20 16:16 17:03 19:00 20:00 Temp 98.4 98.4 Pulse 72 Resp 18 B/P (MAP) 148/72 (97) Pulse Ox 94 96 98 99 O2 Delivery Nasal Cannula Nasal Cannula Nasal Cannula Room Air O2 Flow Rate 1.0 1.0 2.0 06/05/20 06/05/20 06/05/20 06/06/20 20:03 20:20 23:09 03:00 Temp 98.3 98.2 98.3 98.2 Pulse 68 104 Resp 19 18 B/P (MAP) 141/58 (85) 165/75 (105) Pulse Ox 99 99 97 O2 Delivery Room Air Nasal Cannula Nasal Cannula Nasal Cannula O2 Flow Rate 2.0 2.0 2.0 06/06/20 06/06/20 06/06/20 06/06/20 05:39 05:40 07:00 08:00 Temp 98.3 98.3 Pulse 105 Resp 22 B/P (MAP) 149/72 (97) Pulse Ox 99 99 93 O2 Delivery Nasal Cannula Nasal Cannula Nasal Cannula Nasal Cannula O2 Flow Rate 3.5 3.5 3.0 3.0 06/06/20 06/06/20 06/06/20 06/06/20 11:00 11:35 15:00 15:31 Temp 98.1 98.3 98.1 98.3 Pulse 105 97 Resp 20 B/P (MAP) 169/79 (109) 135/58 (83) Pulse Ox 94 92 97 O2 Delivery Nasal Cannula Nasal Cannula Nasal Cannula Nasal Cannula O2 Flow Rate 3.0 3.5 3.0 3.5 Intake and Output 06/05/20 06/05/20 06/06/20 15:00 23:00 07:00 Intake Total 600 ml 410 ml 300 ml Output Total 450 ml 200 ml 250 ml Balance 150 ml 210 ml 50 ml Justicifation of Admission Dx: Justifications for Admission: Justification of Admission Dx: Yes Sepsis: Infection REBECCA MCCOY MD Jun 06, 2020 15:37
[2020-06-06 19:00] VITALS: BP 131/60
[2020-06-06] MEDS: ATORVASTATIN CALCIUM 10 MG TABLET. PO SCH (20:23)
[2020-06-06 23:00] VITALS: BP 136/70
[2020-06-07 03:00] VITALS: BP 138/67
[2020-06-07 05:06] LABS: BASO # 0.1 x10^3/uL (0.0-0.2); BASO % 1 % (0-3); EOS # 0.2 x10^3/uL (0.0-0.7); EOS % 2 % (0-3); HEMATOCRIT 28.4 % (36.0-47.0); HEMOGLOBIN 8.8 g/dL (12.0-15.5); LYMPH # 2.5 x10^3/uL (1.0-4.8); LYMPH % 22 % (24-48); MEAN CORPUSCULAR HEMOGLOBIN 24 pg (25-35); MEAN CORPUSCULAR HGB CONC 31 g/dL (31-37); MEAN CORPUSCULAR VOLUME 76 fL (79-100); MONO % 9 % (0-9); NEUT # 7.5 x10^3/uL (1.8-7.7); NEUT % 66 % (31-73); PLATELET COUNT 259 x10^3/uL (140-400); RED BLOOD COUNT 3.73 x10^6/uL (3.50-5.40); RED CELL DISTRIBUTION WIDTH 28.2 % (11.5-14.5); WHITE BLOOD COUNT 11.3 x10^3/uL (4.0-11.0)
[2020-06-07 05:16] LABS: CALCIUM 7.6 mg/dL (8.5-10.1); CREATININE 0.7 mg/dL (0.6-1.0); POTASSIUM 3.1 mmol/L (3.5-5.1)
[2020-06-07 07:00] VITALS: BP 136/67
--- NOTE | 2020-06-07 07:38 | PDOC ---
DATE OF SERVICE: DATE: 06/07/20 TIME: 07:36 GENERAL General: vss and afebrile. awake and alert. chest clear, heart regular, abdomen benign. had bm yesterday. sob essentially resolved after lasix yesterday. cxr yesterday with some chf. will check echo and redose with lasix today. K+ 3.1 with replacement ongoing. WBC decreased to 11.3K and Hb 8.8. VITAL SIGNS/I&O Vital Signs/I&O: Vital Signs Date Time Temp Pulse Resp B/P (MAP) Pulse Ox O2 Delivery O2 Flow Rate FiO2 06/07/20 03:00 98.1 67 21 138/67 (90) 95 Room Air 3.0 98.1 I & O 06/06/20 06/06/20 06/07/20 14:59 22:59 06:59 Intake Total 350 ml 300 ml 400 ml Output Total 1200 ml Balance 350 ml -900 ml 400 ml ALLERGIES Allergies: Allergies Coded Allergies Type Severity Reaction Last Updated Verified shrimp Allergy Intermediate Rash 12/12/19 Yes MEDS Medications: Current Medications Medications (Trade) Dose Ordered Sig/Kira Route PRN Reason Start Time Stop Time Status Last Admin Dose Admin Potassium Chloride (Klor-Con) 20 meq 1X ONCE PO 06/06/20 08:30 06/06/20 08:31 DC 06/06/20 08:56 Furosemide (Lasix) 40 mg 1X ONCE IVP 06/06/20 13:00 06/06/20 13:01 DC 06/06/20 13:12 Potassium Chloride (Klor-Con) 20 meq 1X ONCE PO 06/06/20 13:00 06/06/20 13:01 DC 06/06/20 13:13 LAB Lab: Laboratory Tests Test 06/07/20 04:00 White Blood Count 11.3 x10^3/uL (4.0-11.0) H Red Blood Count 3.73 x10^6/uL (3.50-5.40) Hemoglobin 8.8 g/dL (12.0-15.5) L Hematocrit 28.4 % (36.0-47.0) L Mean Corpuscular Volume 76 fL (79-100) L Mean Corpuscular Hemoglobin 24 pg (25-35) L Mean Corpuscular Hemoglobin Concent 31 g/dL (31-37) Red Cell Distribution Width 28.2 % (11.5-14.5) H Platelet Count 259 x10^3/uL (140-400) Neutrophils (%) (Auto) 66 % (31-73) Lymphocytes (%) (Auto) 22 % (24-48) L Monocytes (%) (Auto) 9 % (0-9) Eosinophils (%) (Auto) 2 % (0-3) Basophils (%) (Auto) 1 % (0-3) Neutrophils # (Auto) 7.5 x10^3/uL (1.8-7.7) Lymphocytes # (Auto) 2.5 x10^3/uL (1.0-4.8) Monocytes # (Auto) 1.0 x10^3/uL (0.0-1.1) Eosinophils # (Auto) 0.2 x10^3/uL (0.0-0.7) Basophils # (Auto) 0.1 x10^3/uL (0.0-0.2) Sodium Level 142 mmol/L (136-145) Potassium Level 3.1 mmol/L (3.5-5.1) L Chloride Level 105 mmol/L (98-107) Carbon Dioxide Level 28 mmol/L (21-32) Anion Gap 9 (6-14) Blood Urea Nitrogen 13 mg/dL (7-20) Creatinine 0.7 mg/dL (0.6-1.0) Estimated GFR (Cockcroft-Gault) 83.0 Glucose Level 88 mg/dL (70-99) Calcium Level 7.6 mg/dL (8.5-10.1) L Laboratory Tests 06/07/20 04:00 Laboratory Tests 06/07/20 04:00 Justicifation of Admission Dx: Justifications for Admission: Justification of Admission Dx: Yes Sepsis: Infection Nutrition Consultation Dietary Evaluation: Recommendations by RD: Dietary education by RD, Increase Calorie Intake, Protein supplementation Comments: REC cardiac/ADA diet per pmhx, will adjust diet order as needed REC Glucerna (chocolate) w/dinner trays Expected Outcomes/Goals: diet advancement - met, new goal established new goal 06/05: PO intake to meet >75% est needs Interpretation of weight loss: >5% in 1 month Malnutrition Findings: Food and Nutrition Intake (Sev: <50% est energy req 5days Weight Status: Appropriate APPLANABEL MD Jun 07, 2020 07:38
[2020-06-07] MEDS ORDERED: FUROSEMIDE 40 MG/4 ML VIAL. IVP ONE (07:45)
[2020-06-07] MEDS: IPRATRPIUM/ALBUTEROL 0.5/2.5MG 3 ML NEBU. NEB SCH ×4 (07:51→20:20)
[2020-06-07] MEDS: BUDESONIDE 0.5 MG/2 ML NEBU. NEB SCH ×2 (07:51→20:20)
--- NOTE | 2020-06-07 08:04 | PDOC ---
Infectious Disease Note Subjective: Subjective Pt feels a little better sob has improved Currently on 2 L O2 by nasal cannula Pain controlled Denies F/C/ N/V/diarrhea Vital Signs: Vital Signs Vital Signs Date Time Temp Pulse Resp B/P (MAP) Pulse Ox O2 Delivery O2 Flow Rate FiO2 06/07/20 07:53 97 Nasal Cannula 2.0 06/07/20 03:00 98.1 67 21 138/67 (90) 98.1 Physical Exam: PHYSICAL EXAM GENERAL: Propped up in bed, awake, in NAD HENT: Oropharynx pink dry. No lesions. On O2 NECK: Supple LUNGS: CTAB, nonlabored HEART: S1 and S2, irregular ABDOMEN: Some distention, BS quiet, soft, tender. Dressing dry : [place] in place EXT: No gross edema or cyanosis SKIN: without rash INSOLE STIFFENER: Alert, oriented x 3 RIJ (06/01) without signs of complications Medications: Inpatient Meds: Current Medications Medications (Trade) Dose Ordered Sig/Kira Start Time Stop Time Status Last Admin Dose Admin Acetaminophen (Tylenol) 650 mg PRN Q4HRS PRN 06/01/20 12:30 Al Hydroxide/Mg Hydroxide (Mylanta Plus Xs) 30 ml PRN DAILY PRN 06/01/20 12:30 Albuterol/ Ipratropium (Duoneb) 3 ml Q4HRS W/A 06/01/20 14:00 06/07/20 07:51 3 ML Allopurinol (Zyloprim) 300 mg DAILY 06/01/20 13:00 06/06/20 08:57 300 MG Amoxicillin/ Clavulanate Potassium (Augmentin 875/ 125mg) 1 tab BID 06/05/20 10:00 06/06/20 20:23 1 TAB Aspirin (Ecotrin) 325 mg DAILYWBKFT 06/01/20 13:00 06/06/20 08:56 325 MG Atorvastatin Calcium (Lipitor) 5 mg QHS 06/01/20 21:00 06/06/20 20:23 5 MG Budesonide (Pulmicort) 0.5 mg RTBID 06/02/20 08:00 06/07/20 07:51 0.5 MG Cefazolin Sodium 1 gm/Sodium Chloride 500 ml @ 500 mls/hr 1X ONCE 06/01/20 17:30 06/01/20 18:29 DC 06/01/20 18:22 Ceftriaxone Sodium (Rocephin) 2 gm 1X ONCE 06/01/20 06:45 06/01/20 06:46 DC 06/01/20 07:23 2 GM Cellulose (Surgicel Fibrillar 1x2) 1 each STK-MED ONCE 06/01/20 17:45 06/01/20 17:45 DC 06/01/20 18:22 1 EACH Clonidine HCl (Catapres) 0.1 mg PRN Q6HRS PRN 06/01/20 12:30 Dexamethasone Sodium Phosphate (Decadron) 4 mg STK-MED ONCE 06/01/20 16:52 06/01/20 16:52 DC Docusate Sodium (Colace) 100 mg PRN BID PRN 06/01/20 12:30 Duloxetine HCl (Cymbalta) 60 mg DAILY 06/01/20 13:00 06/06/20 08:56 60 MG Enoxaparin Sodium (Lovenox 40mg Syringe) 40 mg Q24H 06/01/20 12:30 06/01/20 13:03 DC Enoxaparin Sodium (Lovenox 80mg Syringe) 80 mg Q12HR 06/01/20 13:15 06/01/20 20:18 DC Fentanyl Citrate (Fentanyl 2ml Vial) 50 mcg PRN Q5MIN PRN 06/01/20 19:45 06/02/20 09:02 DC 06/01/20 21:46 50 MCG Ferrous Sulfate (Feosol) 325 mg BIDWMEALS 06/01/20 17:00 06/06/20 17:42 325 MG Furosemide (Lasix) 40 mg 1X ONCE 06/07/20 07:45 06/07/20 08:01 DC Glycopyrrolate (Robinul) 1 mg STK-MED ONCE 06/01/20 16:51 06/01/20 16:52 DC Guaifenesin (Robitussin) 200 mg PRN Q4HRS PRN 06/01/20 12:30 Heparin Sodium (Porcine) (Heparin Sodium) 1,150 unit PRN Q6HRS PRN 06/01/20 20:30 06/02/20 06:44 DC Heparin Sodium (Porcine) 5000 unit/Sodium Chloride 505 ml @ 505 mls/hr 1X ONCE 06/01/20 17:30 06/01/20 18:29 DC 06/01/20 18:22 Heparin Sodium/ Dextrose 250 ml @ 12.144 mls/ hr CONT PRN 06/01/20 21:00 06/05/20 10:03 DC 06/04/20 22:25 12.144 MLS/HR Hydromorphone HCl (Dilaudid) 0.5 mg PRN Q10MIN PRN 06/01/20 19:45 06/02/20 09:02 DC Info (Anti-Coagulation Monitoring By Pharmacy) 1 each PRN DAILY PRN 06/01/20 20:30 06/06/20 15:09 1 EACH Info (CONTRAST GIVEN -- Rx MONITORING) 1 each PRN DAILY PRN 06/01/20 05:00 06/03/20 04:59 DC Info (Icu Electrolyte Protocol) 1 ea CONT PRN PRN 06/04/20 11:00 Iohexol (Omnipaque 300 Mg/ml) 75 ml 1X ONCE 06/01/20 05:00 06/01/20 05:01 DC 06/01/20 05:14 75 ML Lactobacillus Rhamnosus (Culturelle) 1 cap BID 06/01/20 21:00 06/06/20 20:23 1 CAP Lidocaine HCl (Lidocaine Pf 2% Vial) 5 ml STK-MED ONCE 06/01/20 16:52 06/01/20 16:52 DC Lidocaine HCl (Xylocaine-Mpf 1% 2ml Vial) 2 ml PRN 1X PRN 06/01/20 19:45 06/02/20 09:02 DC Midazolam HCl (Versed) 2 mg STK-MED ONCE 06/01/20 16:51 06/01/20 16:52 DC Morphine Sulfate (Morphine Sulfate) 2 mg PRN Q2HR PRN 06/02/20 00:00 06/03/20 12:07 2 MG Neostigmine [place] (Neostigmine Methylsulfate) 5 mg STK-MED ONCE 06/01/20 16:51 06/01/20 16:51 DC Ondansetron HCl (Zofran) 4 mg PRN Q6HRS PRN 06/01/20 19:45 06/02/20 09:02 DC Pantoprazole Sodium (PROTONIX VIAL for IV PUSH) 40 mg DAILYAC 06/03/20 11:30 06/04/20 08:06 DC 06/03/20 12:06 40 MG Pantoprazole Sodium (Protonix) 40 mg DAILYAC 06/01/20 16:30 06/06/20 06:21 40 MG Phenylephrine HCl (PHENYLEPHRINE in 0.9% NACL PF) 1 mg STK-MED ONCE 06/01/20 16:54 06/01/20 16:55 DC Piperacillin Sod/ Tazobactam Sod 3.375 gm/Sodium Chloride 50 ml @ 100 mls/hr Q6HRS 06/01/20 12:30 06/05/20 09:15 DC 06/05/20 05:52 100 MLS/HR Potassium Chloride (Klor-Con) 20 meq TIDWMEALS 06/07/20 08:00 Prochlorperazine Edisylate (Compazine) 5 mg PACU PRN PRN 06/01/20 19:45 06/02/20 09:02 DC Propofol (Diprivan) 200 mg STK-MED ONCE 06/01/20 16:52 06/01/20 16:53 DC Ringer's Solution 1,000 ml @ 30 mls/hr Q24H 06/01/20 19:38 06/01/20 22:04 DC Rivaroxaban (Xarelto) 20 mg DAILYWBKFT 06/26/20 08:00 Rocuronium [place] (Zemuron) 50 mg STK-MED ONCE 06/01/20 19:11 06/01/20 19:11 DC Sevoflurane (Ultane) 90 ml STK-MED ONCE 06/01/20 16:50 06/01/20 16:51 DC Sodium Monofluorophosphate (Fleet Adult) 133 ml PRN DAILY PRN 06/01/20 12:30 Sodium Chloride 1,000 ml @ 100 mls/hr Q10H 06/01/20 22:00 06/05/20 10:03 DC 06/05/20 00:15 100 MLS/HR Sodium Chloride (Normal Saline Flush) 3 ml QSHIFT PRN 06/01/20 12:30 Succinylcholine Chloride (Anectine) 200 mg STK-MED ONCE 06/01/20 16:51 06/01/20 16:51 DC Labs: Lab Laboratory Tests Test 06/07/20 04:00 White Blood Count 11.3 x10^3/uL (4.0-11.0) Red Blood Count 3.73 x10^6/uL (3.50-5.40) Hemoglobin 8.8 g/dL (12.0-15.5) Hematocrit 28.4 % (36.0-47.0) Mean Corpuscular Volume 76 fL (79-100) Mean Corpuscular Hemoglobin 24 pg (25-35) Mean Corpuscular Hemoglobin Concent 31 g/dL (31-37) Red Cell Distribution Width 28.2 % (11.5-14.5) Platelet Count 259 x10^3/uL (140-400) Neutrophils (%) (Auto) 66 % (31-73) Lymphocytes (%) (Auto) 22 % (24-48) Monocytes (%) (Auto) 9 % (0-9) Eosinophils (%) (Auto) 2 % (0-3) Basophils (%) (Auto) 1 % (0-3) Neutrophils # (Auto) 7.5 x10^3/uL (1.8-7.7) Lymphocytes # (Auto) 2.5 x10^3/uL (1.0-4.8) Monocytes # (Auto) 1.0 x10^3/uL (0.0-1.1) Eosinophils # (Auto) 0.2 x10^3/uL (0.0-0.7) Basophils # (Auto) 0.1 x10^3/uL (0.0-0.2) Sodium Level 142 mmol/L (136-145) Potassium Level 3.1 mmol/L (3.5-5.1) Chloride Level 105 mmol/L (98-107) Carbon Dioxide Level 28 mmol/L (21-32) Anion Gap 9 (6-14) Blood Urea Nitrogen 13 mg/dL (7-20) Creatinine 0.7 mg/dL (0.6-1.0) Estimated GFR (Cockcroft-Gault) 83.0 Glucose Level 88 mg/dL (70-99) Calcium Level 7.6 mg/dL (8.5-10.1) Objective: Assessment: Mesenteric ischemia Multiple 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 s/p expl lap, REX and superior mesenteric artery Lexie thrombectomy on, 06/01. Abdominal pain, nausea, and vomiting, most likely secondary to mesenteric ischemia; Leukocytosis is reactive, in part steroids and surgery Tobaccoism Chronic obstructive pulmonary disease. Hypertension. Hyperlipidemia. Diabetes. Plan: Plan of Care Continue Augmentin BC neg to date Local wound care as directed. Maintain aspiration precautions D/w nursing JACOB RAPHAEL MD Jun 07, 2020 08:04
--- NOTE | 2020-06-07 08:45 | PDOC ---
Provider Note Date of Service: DATE: 06/07/20 TIME: 08:42 Provider Note Provider Note Vascular S: Patient is seen and examined in room. Denies abdominal or incisional pain. Denies any postprandial pain. +flatus and BM Patient still on oxygen per nasal cannula, patient states she remained in the hospital 1 more day to try to wean her off oxygen. O: AF VSS awake and alert abdomen soft, nondistended, nontender, incision dry and intact. + BS lower extremities warm with no edema neuro exam intact A/P POD#5 superior mesenteric artery thrombectomy for acute occlusion, no signs of bowel ischemia -Continue Aspirin and Xarelto K 3.1 continue replacement -up ad mukesh -antibiotics per ID -Follow-up as scheduled in [address] Pinto Justicifation of Admission Dx: Justifications for Admission: Justification of Admission Dx: Yes Sepsis: Infection TIANNA RAMIRES ASSEMBLER TRACTOR Jun 07, 2020 08:45
--- NOTE | 2020-06-07 08:50 | RAD ---
EXAM: PORTABLE CHEST 1V INDICATION: Reason: SOB / Spl. Instructions: / History: . TECHNIQUE: Single view COMPARISON: 06/06/2020 chest x-ray, chest CT 06/03/2020 FINDINGS: Interval removal of the right jugular approach central venous catheter. Stable borderline enlarged heart. The great vessels appear unremarkable. There is no hilar or mediastinal mass. Diffuse coarse reticular densities remain present but have improved in aeration significantly in the interval. No pneumothorax. Small bilateral pleural effusions likely present. There are no significant osseous abnormalities. IMPRESSION: Improving bilateral pulmonary infiltrates. Electronically signed by: Chen Ross MD (06/07/2020 8:46 AM) [id number]
[2020-06-07] MEDS: DULoxetine HCL 30 MG CAPSULE.DR PO SCH (08:52)
[2020-06-07] MEDS: LACTOBACILLUS RHAMNOSUS GG 1 CAPSULE. PO SCH ×2 (08:52→20:41)
[2020-06-07] MEDS: ASPIRIN ENTERIC COATED 325 MG TABLET.DR. PO SCH (08:52)
[2020-06-07] MEDS: POTASSIUM CHLORIDE 20 MEQ TABLET.ER. PO SCH ×3 (08:52→17:32)
[2020-06-07] MEDS: PANTOPRAZOLE 40 MG TABLET.DR. PO SCH (08:53)
[2020-06-07] MEDS: FERROUS SULFATE 325 MG TABLET. PO SCH ×2 (08:53→17:32)
[2020-06-07] MEDS: RIVAROXABAN 15 MG TABLET. PO SCH ×2 (08:53→17:32)
[2020-06-07] MEDS: ALLOPURINOL 300 MG TABLET. PO SCH (08:53)
[2020-06-07] MEDS: AMOXICILLIN/K CLAV 875/125MG TABLET. PO SCH ×2 (08:53→20:41)
--- NOTE | 2020-06-07 09:58 | PDOC ---
Date of Service: DATE: 06/07/20 TIME: 09:54 Subjective: Subjective: No GI complaints. Objective: Vital Signs: Vital Signs Date Time Temp Pulse Resp B/P (MAP) Pulse Ox O2 Delivery O2 Flow Rate FiO2 06/07/20 07:53 97 Nasal Cannula 2.0 06/07/20 07:00 98.0 86 21 136/67 (90) 98.0 Labs: Laboratory Tests Test 06/07/20 04:00 White Blood Count 11.3 x10^3/uL Red Blood Count 3.73 x10^6/uL Hemoglobin 8.8 g/dL Hematocrit 28.4 % Mean Corpuscular Volume 76 fL Mean Corpuscular Hemoglobin 24 pg Mean Corpuscular Hemoglobin Concent 31 g/dL Red Cell Distribution Width 28.2 % Platelet Count 259 x10^3/uL Neutrophils (%) (Auto) 66 % Lymphocytes (%) (Auto) 22 % Monocytes (%) (Auto) 9 % Eosinophils (%) (Auto) 2 % Basophils (%) (Auto) 1 % Neutrophils # (Auto) 7.5 x10^3/uL Lymphocytes # (Auto) 2.5 x10^3/uL Monocytes # (Auto) 1.0 x10^3/uL Eosinophils # (Auto) 0.2 x10^3/uL Basophils # (Auto) 0.1 x10^3/uL Sodium Level 142 mmol/L Potassium Level 3.1 mmol/L Chloride Level 105 mmol/L Carbon Dioxide Level 28 mmol/L Anion Gap 9 Blood Urea Nitrogen 13 mg/dL Creatinine 0.7 mg/dL Estimated GFR (Cockcroft-Gault) 83.0 Glucose Level 88 mg/dL Calcium Level 7.6 mg/dL BLOOD CULTURE Final NO GROWTH AFTER 5 DAYS Imaging: CXR 06/07 IMPRESSION: Improving bilateral pulmonary infiltrates. PE: GEN: NAD LUNGS: CTAB HEART: RRR ABD: NABS, S/ND/NT NEURO/PSYCH: A & O 3 A/P: Resp failure, CHF S/p SMA thrombectomy, REX, expl laparotomy 06/01/20 - on Xarelto and ASA Chronic ELIDA - on PO iron last week, last 'scopes in 2019 GERD - on PPI -- Continue same per GI. Justicifation of Admission Dx: Justifications for Admission: Justification of Admission Dx: Yes Sepsis: Infection ELDA HUTTON Jun 07, 2020 09:57
--- NOTE | 2020-06-07 10:42 | PDOC ---
PULMONARY PROGRESS NOTES DATE: 06/07/20 TIME: 10:38 Subjective now on 2 liters N/C, Feeling better today no soa, no increased cough, no cp , no abdominal pain Vitals Vital Signs Date Time Temp Pulse Resp B/P (MAP) Pulse Ox O2 Delivery O2 Flow Rate FiO2 06/07/20 08:00 Nasal Cannula 2.0 06/07/20 07:53 97 06/07/20 07:00 98.0 86 21 136/67 (90) 98.0 ROS: No Nausea, No Chest Pain, No Abdominal Pain General: Alert, No acute distress Lungs: Clear Cardiovascular: S1 Abdomen: Soft, Non-tender Neuro Exam: Alert, Oriented Extremities: No Edema Skin: Warm Labs Laboratory Tests Test 06/06/20 06:30 06/07/20 04:00 White Blood Count 14.6 x10^3/uL (4.0-11.0) 11.3 x10^3/uL (4.0-11.0) Red Blood Count 3.87 x10^6/uL (3.50-5.40) 3.73 x10^6/uL (3.50-5.40) Hemoglobin 9.2 g/dL (12.0-15.5) 8.8 g/dL (12.0-15.5) Hematocrit 29.5 % (36.0-47.0) 28.4 % (36.0-47.0) Mean Corpuscular Volume 76 fL (79-100) 76 fL (79-100) Mean Corpuscular Hemoglobin 24 pg (25-35) 24 pg (25-35) Mean Corpuscular Hemoglobin Concent 31 g/dL (31-37) 31 g/dL (31-37) Red Cell Distribution Width 27.6 % (11.5-14.5) 28.2 % (11.5-14.5) Platelet Count 257 x10^3/uL (140-400) 259 x10^3/uL (140-400) Neutrophils (%) (Auto) 76 % (31-73) 66 % (31-73) Lymphocytes (%) (Auto) 13 % (24-48) 22 % (24-48) Monocytes (%) (Auto) 9 % (0-9) 9 % (0-9) Eosinophils (%) (Auto) 2 % (0-3) 2 % (0-3) Basophils (%) (Auto) 1 % (0-3) 1 % (0-3) Neutrophils # (Auto) 11.0 x10^3/uL (1.8-7.7) 7.5 x10^3/uL (1.8-7.7) Lymphocytes # (Auto) 1.9 x10^3/uL (1.0-4.8) 2.5 x10^3/uL (1.0-4.8) Monocytes # (Auto) 1.3 x10^3/uL (0.0-1.1) 1.0 x10^3/uL (0.0-1.1) Eosinophils # (Auto) 0.2 x10^3/uL (0.0-0.7) 0.2 x10^3/uL (0.0-0.7) Basophils # (Auto) 0.1 x10^3/uL (0.0-0.2) 0.1 x10^3/uL (0.0-0.2) Sodium Level 141 mmol/L (136-145) 142 mmol/L (136-145) Potassium Level 3.1 mmol/L (3.5-5.1) 3.1 mmol/L (3.5-5.1) Chloride Level 104 mmol/L (98-107) 105 mmol/L (98-107) Carbon Dioxide Level 25 mmol/L (21-32) 28 mmol/L (21-32) Anion Gap 12 (6-14) 9 (6-14) Blood Urea Nitrogen 13 mg/dL (7-20) 13 mg/dL (7-20) Creatinine 0.6 mg/dL (0.6-1.0) 0.7 mg/dL (0.6-1.0) Estimated GFR (Cockcroft-Gault) 99.1 83.0 Glucose Level 94 mg/dL (70-99) 88 mg/dL (70-99) Calcium Level 8.1 mg/dL (8.5-10.1) 7.6 mg/dL (8.5-10.1) Laboratory Tests Test 06/07/20 04:00 White Blood Count 11.3 x10^3/uL (4.0-11.0) Red Blood Count 3.73 x10^6/uL (3.50-5.40) Hemoglobin 8.8 g/dL (12.0-15.5) Hematocrit 28.4 % (36.0-47.0) Mean Corpuscular Volume 76 fL (79-100) Mean Corpuscular Hemoglobin 24 pg (25-35) Mean Corpuscular Hemoglobin Concent 31 g/dL (31-37) Red Cell Distribution Width 28.2 % (11.5-14.5) Platelet Count 259 x10^3/uL (140-400) Neutrophils (%) (Auto) 66 % (31-73) Lymphocytes (%) (Auto) 22 % (24-48) Monocytes (%) (Auto) 9 % (0-9) Eosinophils (%) (Auto) 2 % (0-3) Basophils (%) (Auto) 1 % (0-3) Neutrophils # (Auto) 7.5 x10^3/uL (1.8-7.7) Lymphocytes # (Auto) 2.5 x10^3/uL (1.0-4.8) Monocytes # (Auto) 1.0 x10^3/uL (0.0-1.1) Eosinophils # (Auto) 0.2 x10^3/uL (0.0-0.7) Basophils # (Auto) 0.1 x10^3/uL (0.0-0.2) Sodium Level 142 mmol/L (136-145) Potassium Level 3.1 mmol/L (3.5-5.1) Chloride Level 105 mmol/L (98-107) Carbon Dioxide Level 28 mmol/L (21-32) Anion Gap 9 (6-14) Blood Urea Nitrogen 13 mg/dL (7-20) Creatinine 0.7 mg/dL (0.6-1.0) Estimated GFR (Cockcroft-Gault) 83.0 Glucose Level 88 mg/dL (70-99) Calcium Level 7.6 mg/dL (8.5-10.1) Medications Active Scripts Medications Dose Route/Sig Max Daily Dose Days Date Category Feosol (Ferrous Sulfate) 325 Mg Tablet 325 Mg PO BID 90 05/31/20 Rx Potassium Chloride 20 Meq Tablet.er 20 Meq PO AFTRNOON 30 12/19/19 Rx Aspirin Ec (Aspirin) 325 Mg Tablet.dr 325 Mg PO DAILYWBKFT 90 12/19/19 Rx Protonix (Pantoprazole Sodium) 20 Mg Tablet. 40 Mg PO DAILY 02/20/19 Reported Actos (Pioglitazone Hcl) 30 Mg Tablet 30 Mg PO DAILY 01/25/19 Reported Pravastatin Sodium 20 Mg Tablet 20 Mg PO QHS 07/02/16 Reported Allopurinol 100 Mg Tablet 300 Mg PO DAILY 11/20/15 Reported Cymbalta (Duloxetine Hcl) 60 Mg Capsule. 60 Mg PO DAILY 11/20/15 Reported Comments CXR 06/07 IMPRESSION: Improving bilateral pulmonary infiltrates. Impression . 1. Acute respiratory failure, expected multifactorial in etiology-- improved today requiring less oxygen 2. Abnormal chest x-ray and CT of the chest. 3. Chronic obstructive pulmonary disease. 4. Tobacco habituation. 5. Acute mesenteric ischemia, status post exploratory laparotomy, superior mesenteric artery thrombectomy, extensive lysis, . 6. Hypertension. 7. Hyperlipidemia. 8. Coronary artery disease. 9. recent anemia-- HGB stable 10. anemic heart failure originally now likely diastolic heart failure-- improved with lasix Plan . 1. Titrate FiO2 to keep O2 saturation 92%, 2 liters N/C which is baseline 02 requirement for her, now on 2 liters N/C, improved after lasix 2. Continue bronchodilator. 3. Pulmicort b.i.d. 4. incentive spirometer, to use multiple times an hour, encourage use 5. stable 2 mm right lung nodule/ basal atelectasis 6 PO AC-- xarellto 7. Follow vasulcar surgery recs 8. Follow cardiology recs PT/OT D/W PANCHO DUMONT MD Jun 07, 2020 10:42
[2020-06-07 11:00] VITALS: BP 128/58
--- NOTE | 2020-06-07 11:08 | NUR ---
SS following up with discharge planning. SS reviewed pt chart and discussed with pt RN. PT/OT recommended home independent. Six minute walk ordered to assess oxygen needs. SS will continue to follow for discharge planning.
[2020-06-07] MEDS: ANTI-COAG MONITOR BY PHARMACY. MC PRN (14:01)
[2020-06-07 15:00] VITALS: BP 131/70
--- NOTE | 2020-06-07 15:28 | NUR ---
SS following up with discharge planning. Six minute walk completed and recommended 2 liters with exertion. SS phoned and faxed respiratory notes and clinical to [facility], ; fax [phone]. SS spoke with Pedro at [facility]. Dr. Joaquin's office notified of need for script. Oxygen script will need to be faxed to [facility] if pt discharges over the weekend.
--- NOTE | 2020-06-07 17:25 | CARD ---
MR#: [id number] Date of Study: 06/07/2020 Ordering Physician: ANABEL MARTÍNEZ, Referring Physician: ANABEL MARTÍNEZ, Tech: Maria Teresa Reyna [facility] APPROVED REPORT EXAM: Two-dimensional and M-mode echocardiogram with Doppler and color Doppler. Other Information Quality : AverageHR: 92bpm Rhythm : NSR INDICATION Congestive Heart Failure RISK FACTORS Hypertension Obesity Smoking 2D DIMENSIONS RVDd3.8 (2.9-3.5cm)Left Atrium(2D)4.8 (1.6-4.0cm) IVSd1.2 (0.7-1.1cm)Aortic Root(2D)3.4 (2.0-3.7cm) LVDd5.1 (3.9-5.9cm)LVOT Diameter2.3 (1.8-2.4cm) PWd1.1 (0.7-1.1cm)LVDs3.3 (2.5-4.0cm) FS (%) 34.7 %SV79.5 ml LVEF(%)63.5 (>50%) Aortic Valve AoV Peak Scottie.151.5cm/sAoV VTI29.9cm AO Peak GR.9.2mmHgLVOT Peak Scottie.130.8cm/s AO Mean GR.4mmHgAVA (VMAX)3.54cm2 AI P 1/2 Oike025fz Mitral Valve MV E Dxnzlnrh130.6cm/sMV DECEL [id number] MV A Zoxkwtnz24.2cm/sE/A Ratio1.4 Pulmonary Valve PV Peak Mjzxuhqc007.7cm/s Tricuspid Valve TR P. Ambaqvkl925zd/sTR Peak Gr.38mmHg Pulmonary Vein S1 Rqyeacwh72.6cm/sD2 Rkrumddg50.7cm/s PVa [id number] LEFT VENTRICLE The left ventricle is normal size. There is borderline to mild concentric left ventricular hypertroph y. The systolic function is mildly impaired. EF 45% There is mild global hypokinesis. Tissue Doppler imaging reveals moderate left ventricular diastolic dysfunction. RIGHT VENTRICLE The right ventricle is normal size. There is normal right ventricular wall thickness. The right ventr icular systolic function is normal. ATRIA The left atrium is mildly dilated. The right atrium size is normal. The interatrial septum is intact with no evidence for an atrial septal defect or patent foramen ovale as noted on 2-D or Doppler imagi ng. AORTIC VALVE The aortic valve is normal in structure and function. Doppler and Color Flow revealed mild aortic reg urgitation. There is no significant aortic valvular stenosis. MITRAL VALVE The mitral valve is normal in structure and function. There is no mitral valve stenosis. Doppler and Color Flow revealed mild mitral regurgitation. TRICUSPID VALVE The tricuspid valve is normal in structure and function. Doppler and Color Flow revealed trace tricus pid regurgitation. Estimated PAP is 43-48 mmHg. There is no tricuspid valve stenosis. PULMONIC VALVE Doppler and Color Flow revealed no pulmonic valvular regurgitation. There is no pulmonic valvular leon nosis. GREAT VESSELS The aortic root is normal in size. The ascending aorta is normal in size. The IVC is normal in size a nd collapses >50% with inspiration. PERICARDIAL EFFUSION There is a trace pericardial effusion. Critical Notification Critical Value: Yes <Conclusion> The systolic function is mildly impaired. EF 45% There is mild global hypokinesis. Doppler and Color Flow revealed mild aortic regurgitation. Doppler and Color Flow revealed trace tricuspid regurgitation. Estimated PAP is 43-48 mmHg. Signed by : Aden Brown, Electronically Approved : 06/07/2020 17:24:42
[2020-06-07 19:00] VITALS: BP 118/59
[2020-06-07] MEDS: ATORVASTATIN CALCIUM 10 MG TABLET. PO SCH (20:41)
[2020-06-07 23:00] VITALS: BP 123/60
[2020-06-08 03:33] VITALS: BP 106/57
[2020-06-08 05:23] LABS: CALCIUM 7.7 mg/dL (8.5-10.1); CREATININE 0.8 mg/dL (0.6-1.0); GFR 71.1; POTASSIUM 3.6 mmol/L (3.5-5.1)
--- NOTE | 2020-06-08 05:32 | PDOC ---
PULMONARY PROGRESS NOTES DATE: 06/08/20 TIME: 05:30 Subjective now on 2 liters N/C, Feeling better today sob better, denies cough, cp Vitals Vital Signs Date Time Temp Pulse Resp B/P (MAP) Pulse Ox O2 Delivery O2 Flow Rate FiO2 06/08/20 03:33 97.6 96 20 106/57 (73) 99 Room Air 3.0 97.6 ROS: No Nausea, No Chest Pain, No Abdominal Pain General: Alert, No acute distress Lungs: Clear Cardiovascular: S1, S2 Abdomen: Soft, Non-tender Neuro Exam: Alert, Oriented Extremities: No Edema Skin: Warm Labs Laboratory Tests Test 06/06/20 06:30 06/07/20 04:00 06/08/20 04:30 White Blood Count 14.6 x10^3/uL (4.0-11.0) 11.3 x10^3/uL (4.0-11.0) Red Blood Count 3.87 x10^6/uL (3.50-5.40) 3.73 x10^6/uL (3.50-5.40) Hemoglobin 9.2 g/dL (12.0-15.5) 8.8 g/dL (12.0-15.5) Hematocrit 29.5 % (36.0-47.0) 28.4 % (36.0-47.0) Mean Corpuscular Volume 76 fL (79-100) 76 fL (79-100) Mean Corpuscular Hemoglobin 24 pg (25-35) 24 pg (25-35) Mean Corpuscular Hemoglobin Concent 31 g/dL (31-37) 31 g/dL (31-37) Red Cell Distribution Width 27.6 % (11.5-14.5) 28.2 % (11.5-14.5) Platelet Count 257 x10^3/uL (140-400) 259 x10^3/uL (140-400) Neutrophils (%) (Auto) 76 % (31-73) 66 % (31-73) Lymphocytes (%) (Auto) 13 % (24-48) 22 % (24-48) Monocytes (%) (Auto) 9 % (0-9) 9 % (0-9) Eosinophils (%) (Auto) 2 % (0-3) 2 % (0-3) Basophils (%) (Auto) 1 % (0-3) 1 % (0-3) Neutrophils # (Auto) 11.0 x10^3/uL (1.8-7.7) 7.5 x10^3/uL (1.8-7.7) Lymphocytes # (Auto) 1.9 x10^3/uL (1.0-4.8) 2.5 x10^3/uL (1.0-4.8) Monocytes # (Auto) 1.3 x10^3/uL (0.0-1.1) 1.0 x10^3/uL (0.0-1.1) Eosinophils # (Auto) 0.2 x10^3/uL (0.0-0.7) 0.2 x10^3/uL (0.0-0.7) Basophils # (Auto) 0.1 x10^3/uL (0.0-0.2) 0.1 x10^3/uL (0.0-0.2) Sodium Level 141 mmol/L (136-145) 142 mmol/L (136-145) 141 mmol/L (136-145) Potassium Level 3.1 mmol/L (3.5-5.1) 3.1 mmol/L (3.5-5.1) 3.6 mmol/L (3.5-5.1) Chloride Level 104 mmol/L (98-107) 105 mmol/L (98-107) 106 mmol/L (98-107) Carbon Dioxide Level 25 mmol/L (21-32) 28 mmol/L (21-32) 27 mmol/L (21-32) Anion Gap 12 (6-14) 9 (6-14) 8 (6-14) Blood Urea Nitrogen 13 mg/dL (7-20) 13 mg/dL (7-20) 18 mg/dL (7-20) Creatinine 0.6 mg/dL (0.6-1.0) 0.7 mg/dL (0.6-1.0) 0.8 mg/dL (0.6-1.0) Estimated GFR (Cockcroft-Gault) 99.1 83.0 71.1 Glucose Level 94 mg/dL (70-99) 88 mg/dL (70-99) 95 mg/dL (70-99) Calcium Level 8.1 mg/dL (8.5-10.1) 7.6 mg/dL (8.5-10.1) 7.7 mg/dL (8.5-10.1) Laboratory Tests Test 06/08/20 04:30 Sodium Level 141 mmol/L (136-145) Potassium Level 3.6 mmol/L (3.5-5.1) Chloride Level 106 mmol/L (98-107) Carbon Dioxide Level 27 mmol/L (21-32) Anion Gap 8 (6-14) Blood Urea Nitrogen 18 mg/dL (7-20) Creatinine 0.8 mg/dL (0.6-1.0) Estimated GFR (Cockcroft-Gault) 71.1 Glucose Level 95 mg/dL (70-99) Calcium Level 7.7 mg/dL (8.5-10.1) Medications Active Scripts Medications Dose Route/Sig Max Daily Dose Days Date Category Feosol (Ferrous Sulfate) 325 Mg Tablet 325 Mg PO BID 90 05/31/20 Rx Potassium Chloride 20 Meq Tablet.er 20 Meq PO AFTRNOON 30 12/19/19 Rx Aspirin Ec (Aspirin) 325 Mg Tablet. 325 Mg PO DAILYWBKFT 90 12/19/19 Rx Protonix (Pantoprazole Sodium) 20 Mg Tablet. 40 Mg PO DAILY 02/20/19 Reported Actos (Pioglitazone Hcl) 30 Mg Tablet 30 Mg PO DAILY 01/25/19 Reported Pravastatin Sodium 20 Mg Tablet 20 Mg PO QHS 07/02/16 Reported Allopurinol 100 Mg Tablet 300 Mg PO DAILY 11/20/15 Reported Cymbalta (Duloxetine Hcl) 60 Mg Capsule. 60 Mg PO DAILY 11/20/15 Reported Comments CXR 06/07 IMPRESSION: Improving bilateral pulmonary infiltrates. Impression . 1. Acute respiratory failure, expected multifactorial in etiology-- improved today requiring less oxygen 2. Abnormal chest x-ray and CT of the chest. 3. Chronic obstructive pulmonary disease. 4. Tobacco habituation. 5. Acute mesenteric ischemia, status post exploratory laparotomy, superior mesenteric artery thrombectomy, extensive lysis, . 6. Hypertension. 7. Hyperlipidemia. 8. Coronary artery disease. 9. recent anemia-- HGB stable 10. anemic heart failure originally now likely diastolic heart failure-- improve d with lasix Plan . 1. Titrate FiO2 to keep O2 saturation 90%, 6 min walk at dc 2. Continue bronchodilator. 3. Pulmicort b.i.d. 4. incentive spirometer, to use multiple times an hour, encourage use 5. stable 2 mm right lung nodule/ basal atelectasis 6 PO AC-- xarellto 7. Follow vasulcar surgery recs 8. Follow cardiology recs PT/OT D/W ZOILA SRINIVASAN MD Jun 08, 2020 05:32
[2020-06-08] MEDS: PANTOPRAZOLE 40 MG TABLET.DR. PO SCH (06:14)
[2020-06-08 07:00] VITALS: BP 98/59
[2020-06-08] MEDS: IPRATRPIUM/ALBUTEROL 0.5/2.5MG 3 ML NEBU. NEB SCH ×2 (07:36→11:29)
[2020-06-08] MEDS: BUDESONIDE 0.5 MG/2 ML NEBU. NEB SCH (07:36)
[2020-06-08] MEDS ORDERED: AMOX1TAB11 PO (07:52)
[2020-06-08] MEDS ORDERED: RIVA10TA PO (07:52)
[2020-06-08] MEDS ORDERED: POTA20TA4 PO (07:52)
[2020-06-08] MEDS ORDERED: FURO-68 PO (07:52)
--- NOTE | 2020-06-08 08:25 | DS ---
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 ADDITIONAL DIAGNOSES: Abdominal pain, lactic acidosis, chronic obstructive pulmonary disease, peripheral vascular disease, diabetes, smoking status, hyperlipidemia, hypertension, prior transient ischemic attack. CHIEF COMPLAINT AND HISTORY OF PRESENT ILLNESS: This 69-year-old white female admitted through the Emergency Room with acute onset of periumbilical abdominal pain, nausea and vomiting, was found to have mesenteric ischemia. SUMMARY OF STAY: The patient was admitted. Vascular Surgery did thrombectomy and judaism of flow to her superior mesenteric artery graft. Her abdominal pain resolved postoperatively, she had problems with hypokalemia, which were treated throughout the stay. She did develop some acute respiratory failure likely due to acute systolic congestive heart failure postoperatively, which was remedied with Lasix. She was slowly mobilized, was taking p.o. decently, was having stools, was felt ready for discharge on the day of dismissal with close outpatient followup and this was accomplished. She was found on a 6-minute walk to need 2 liters of oxygen with activity, which is likely related to underlying COPD. DISPOSITION: The patient is discharged to home. DIET: As tolerated. ACTIVITY: As tolerated, office in 1 week. Discharge Medications will be that of her regular home medications. In addition, she will be taking Augmentin 875 b.i.d. for a week. She will be on Lasix 40 mg daily, potassium chloride 20 mEq t.i.d., and Xarelto 20 mg daily as new medicines at the time of discharge. I would hope that we will be able to get rid of all of these except the Xarelto as time goes on as an outpatient. ANABEL MARTÍNEZ MD DR: IZA/heriberto JOB#: [id number] / [id number]
[2020-06-08] MEDS: FERROUS SULFATE 325 MG TABLET. PO SCH (08:43)
[2020-06-08] MEDS: ALLOPURINOL 300 MG TABLET. PO SCH (08:43)
[2020-06-08] MEDS: LACTOBACILLUS RHAMNOSUS GG 1 CAPSULE. PO SCH (08:43)
[2020-06-08] MEDS: ASPIRIN ENTERIC COATED 325 MG TABLET.DR. PO SCH (08:43)
[2020-06-08] MEDS: RIVAROXABAN 15 MG TABLET. PO SCH (08:43)
[2020-06-08] MEDS: AMOXICILLIN/K CLAV 875/125MG TABLET. PO SCH (08:43)
[2020-06-08] MEDS: POTASSIUM CHLORIDE 20 MEQ TABLET.ER. PO SCH ×2 (08:43→12:45)
[2020-06-08] MEDS: DULoxetine HCL 30 MG CAPSULE.DR PO SCH (08:44)
[2020-06-08] MEDS: ANTI-COAG MONITOR BY PHARMACY. MC PRN (11:18)
--- NOTE | 2020-06-08 13:02 | NUR ---
PATIENT DISCHARGE INSTRUCTIONS DISCUSSED WITH PATIENT. PATIENT GIVEN PRESCRIPTION FOR OXYGEN. MEDICATION PRESCRIPTIONS SENT TO PHARMACY. PATIENT STABLE WITH NO COMPLAINTS OR QUESTIONS AT TIME OF DISCHARGE. PATIENTS IV OUT AND TELE MONITOR OFF. PATIENT TRANSPORTED TO [facility] PER WHEELCHAIR BY RN.
[2020-06-10 07:27] LABS: ANTITHROMBIN III SEE SEPARATE REPORT; CARDIOLIPIN ANTIBODIES SEE SEPARATE REPORT; LUPUS ANTICOAGULANT SEE SEPARATE REPORT; PROTEIN C ACTIVITY SEE SEPARATE REPORT; PROTEIN S ACTIVITY SEE SEPARATE REPORT
[2020-06-26] MEDS ORDERED: RIVAROXABAN 10 MG TABLET. PO SCH (08:00)
== END 2020-06-08 13:06 | disposition home or self-care (01) | DRG 853 ==
LOC: ER 03:14 → 5 NORTH 06:55 → 1 WEST ICU 20:53 → OBSVTOIN 21:56 → 2 NORTH 06-03 13:31
PROVIDERS: ADMIT Family Medicine; ATTEND Family Medicine
PROC: 0DNU0ZZ Release Omentum, Open Approach (ICD-10-PCS; 2020-06-01)
PROC: 0WJG0ZZ Inspection of Peritoneal Cavity, Open Approach (ICD-10-PCS; 2020-06-01)
PROC: 04C50ZZ Extirpation of Matter from Superior Mesenteric Artery, Open Approach (ICD-10-PCS; principal; 2020-06-01 16:31)
DX: A41.9 Sepsis, unspecified organism (principal); K55.059 Acute (reversible) ischemia of intestine, part and extent unspecified; J96.00 Acute respiratory failure, unspecified whether with hypoxia or hypercapnia; I50.21 Acute systolic (congestive) heart failure; K55.069 Acute infarction of intestine, part and extent unspecified; N10 Acute pyelonephritis; C18.9 Malignant neoplasm of colon, unspecified; E87.2 Acidosis; I42.9 Cardiomyopathy, unspecified; Z20.828 Contact with and (suspected) exposure to other viral communicable diseases; D50.9 Iron deficiency anemia, unspecified; E11.51 Type 2 diabetes mellitus with diabetic peripheral angiopathy without gangrene; E11.65 Type 2 diabetes mellitus with hyperglycemia; E66.01 Morbid (severe) obesity due to excess calories; E78.00 Pure hypercholesterolemia, unspecified; E78.5 Hyperlipidemia, unspecified; E87.6 Hypokalemia; E89.0 Postprocedural hypothyroidism; F17.210 Nicotine dependence, cigarettes, uncomplicated; I11.0 Hypertensive heart disease with heart failure; I25.10 Atherosclerotic heart disease of native coronary artery without angina pectoris; J43.9 Emphysema, unspecified; K21.9 Gastro-esophageal reflux disease without esophagitis; K42.9 Umbilical hernia without obstruction or gangrene; K57.90 Diverticulosis of intestine, part unspecified, without perforation or abscess without bleeding; K64.9 Unspecified hemorrhoids; Z80.1 Family history of malignant neoplasm of trachea, bronchus and lung; Z82.49 Family history of ischemic heart disease and other diseases of the circulatory system; Z82.5 Family history of asthma and other chronic lower respiratory diseases; Z83.3 Family history of diabetes mellitus; Z86.73 Personal history of transient ischemic attack (TIA), and cerebral infarction without residual deficits; Z87.11 Personal history of peptic ulcer disease; Z90.49 Acquired absence of other specified parts of digestive tract; M19.90 Unspecified osteoarthritis, unspecified site; Z79.899 Other long term (current) drug therapy; Z68.27 Body mass index [BMI] 27.0-27.9, adult
CPT/HCPCS: 36415; 71045; 71250; 74177; 80048; 80053; 81001; 82607; 82962; 83540; 83550; 83605; 83690; 83735; 83880; 84484; 85007; 85025; 85027; 85045; 85300; 85302; 85306; 85520; 85610; 86146; 86147; 86850; 86900; 86901; 86920; 87040; 87426; 93306; 94618; 94640; 94760; 96361; 96374; 96375; 99285; A7015; C1757; C9113; G0238; G0378; G0379; J0330; J0696; J1100; J1170; J1644; J1940; J2250; J2270; J2370; J2405; J2543; J2704; J2710; J3010; J3490; J7030; J7040; P9016; Q9967; J7626; U0003-CS

== ENCOUNTER 2020-06-13 20:35 | Inpatient (IN) | payer MEDICARE, MEDICAID ==
[~2020-06-13] VITALS: Ht 162.6 cm; Wt 73.8 kg
[~2020-06-13 20:35] MED LIST changes: +AMOX1TAB11 PO; +FURO-68 PO; +POTA20TA4 PO; +RIVA10TA PO
[2020-06-13 21:26] LABS: BASO # 0.2 x10^3/uL (0.0-0.2); BASO % 1 % (0-3); EOS # 0.1 x10^3/uL (0.0-0.7); EOS % 0 % (0-3); HEMATOCRIT 31.6 % (36.0-47.0); HEMOGLOBIN 9.9 g/dL (12.0-15.5); LYMPH # 2.6 x10^3/uL (1.0-4.8); LYMPH % 15 % (24-48); MEAN CORPUSCULAR HEMOGLOBIN 25 pg (25-35); MEAN CORPUSCULAR HGB CONC 31 g/dL (31-37); MEAN CORPUSCULAR VOLUME 80 fL (79-100); MONO # 0.8 x10^3/uL (0.0-1.1); MONO % 4 % (0-9); NEUT % 79 % (31-73); RED BLOOD COUNT 3.97 x10^6/uL (3.50-5.40); RED CELL DISTRIBUTION WIDTH 31.2 % (11.5-14.5); WHITE BLOOD COUNT 17.7 x10^3/uL (4.0-11.0)
[2020-06-13 21:28] LABS: PLATELET COUNT 1103 x10^3/uL (140-400)
[2020-06-13 21:36] LABS: CALCIUM 9.4 mg/dL (8.5-10.1); CREATININE 1.3 mg/dL (0.6-1.0); GFR 40.6; POTASSIUM 4.6 mmol/L (3.5-5.1)
[2020-06-13 21:41] LABS: ALBUMIN 3.2 g/dL (3.4-5.0); ALBUMIN/GLOBULIN RATIO 0.7 (1.0-1.7); TOTAL BILIRUBIN 0.5 mg/dL (0.2-1.0); TOTAL PROTEIN 7.8 g/dL (6.4-8.2)
[2020-06-13 22:18] LABS: % LYMPHS 12 % (24-48); % METAS 1 % (0-0); % MONOS 2 % (0-10); % SEGS 85 % (35-66)
[2020-06-13 22:20] LABS: ANISOCYTOSIS MARKED; PLT ESTIMATE INCREASED (ADEQUATE); POLYCHROMASIA MOD; STOMATOCYTES FEW
[2020-06-13] MEDS ORDERED: IV NORMAL SALINE 1000ML BAG 1,000 ML IV ONE (22:30)
[2020-06-13 23:02] LABS: PROTHROMBIN TIME PATIENT 19.2 SEC (11.7-14.0)
--- NOTE | 2020-06-13 23:14 | RAD ---
Acute abdominal series to include a PA chest radiograph 06/13/2020 Clinical History: Abdominal pain and vomiting. A PA digital radiograph of the chest was obtained. Supine and erect AP digital radiographs of the abdomen/pelvis were obtained. Comparison is made to patient's CT scan of the abdomen and pelvis dated 06/01/2020 . The cardiac silhouette is normal in size. The thoracic aorta is minimally tortuous. Atherosclerotic calcification thoracic aorta is seen. No acute pulmonary infiltrate is seen. No pleural effusion or pneumothorax is noted. Midline skin steph are seen throughout the abdomen. The abdominal bowel gas pattern is nonobstructive. There is no evidence of free air. No radiopaque calculus is seen. Degenerative changes are seen involving the thoracic and lumbar spine. Impression: Nonobstructive bowel gas pattern. Electronically signed by: Cj Buckley MD (06/13/2020 11:11 PM) [id number]
[2020-06-13] MEDS ORDERED: ONDANSETRON PF 4 MG/2 ML VIAL. IVP ONE (23:15)
--- NOTE | 2020-06-14 00:22 | PHYS DOC ---
Past Medical History Past Medical History: Arthritis, Asthma, COPD, Diabetes-Type II, GERD, High Cholesterol, Hypertension, TIA, Other Additional Past Medical Histor: CATARACTS, MACULAR DEGENERATION, NEUROPATHY, EMPHYSEMA Past Surgical History: Other Additional Past Surgical Histo: STINT TO LEFT HIP, PARTIAL THYROIDECTOMY, L INGUINAL HERNIA Smoking Status: Current Every Day Smoker Alcohol Use: None General Adult EDM: Chief Complaint: DIARRHEA HPI: HPI: Patient is a 69 year old female who presents to the Emergency Room with abdominal pain. Patient had surgery 2 weeks prior to arrival here for a SMA occlusion. She is unsure what exactly was done. She states she was doing okay in the hospital, but upon arrival home she developed epigastric abdominal pain. She states every time she would eat or try to take her medications she felt like they would get stuck in her epigastric region. She has not been able to eat the last couple of days due to this pain. She has some nausea, but denies vomiting, diarrhea, constipation, fever. She states she generally feels unwell. She has been taking her medications. Review of Systems: Review of Systems: General: Denies fever, chills, sweats, fatigue Eyes: Denies drainage, blurred vision, eye redness HENT: Denies rhinorrhea, sore throat, earache Respiratory: Denies cough, shortness of breath, wheezing Cardiac: Denies edema, palpitations, chest pain GI: Reports nausea, abdominal pain MSK: Denies neck pain, back pain Skin: Denies rash, jaundice Neuro: Denies headache, dizziness Psychiatric: Denies SI/HI Heart Score: Risk Factors: Risk Factors: DM, Current or recent (<one month) smoker, HTN, HLP, family history of CAD, obesity. Risk Scores: Score 0 - 3: 2.5% MACE over next 6 weeks - Discharge Home Score 4 - 6: 20.3% MACE over next 6 weeks - Admit for Clinical Observation Score 7 - 10: 72.7% MACE over next 6 weeks - Early Invasive Strategies Current Medications: Current Medications Medications (Trade) Dose Ordered Sig/Kira Start Time Stop Time Status Last Admin Dose Admin Iohexol (Omnipaque 240 Mg/ml) 30 ml 1X ONCE 06/14/20 00:15 06/14/20 00:16 UNV Iohexol (Omnipaque 300 Mg/ml) 60 ml 1X ONCE 06/14/20 00:15 06/14/20 00:16 UNV Ondansetron HCl (Zofran) 4 mg 1X ONCE 06/13/20 23:15 06/13/20 23:16 DC 06/13/20 23:11 4 MG Sodium Chloride 1,000 ml @ 1,000 mls/hr 1X ONCE 06/13/20 22:30 06/13/20 23:29 DC 06/13/20 22:30 1,000 MLS/HR Allergies: Allergies: Allergies Coded Allergies Type Severity Reaction Last Updated Verified shrimp Allergy Intermediate Rash 12/12/19 Yes Physical Exam: PE: General: Awake, alert, NAD. Well Nourished, well hydrated. Cooperative HEENT: Atraumatic, EOMI, PERRL, airway patent, moist oral mucosa Neck: Supple, trachea midline Respiratory: CTA bilaterally, normal effort, no wheezing/crackles CV: RRR, no murmur, cap refill <2 GI: Soft, nondistended, epigastric tenderness, no masses, incision clean, dry, intact MSK: No obvious deformities Skin: Warm, dry, intact Neuro: A&O x3, speech NL, sensory and motor grossly intact, no focal deficits Psych: Normal affect, normal mood, not suicidal or homicidal Current Patient Data: Labs: Laboratory Tests Test 06/13/20 21:16 White Blood Count 17.7 x10^3/uL (4.0-11.0) H Red Blood Count 3.97 x10^6/uL (3.50-5.40) Hemoglobin 9.9 g/dL (12.0-15.5) L Hematocrit 31.6 % (36.0-47.0) L Mean Corpuscular Volume 80 fL (79-100) # Mean Corpuscular Hemoglobin 25 pg (25-35) Mean Corpuscular Hemoglobin Concent 31 g/dL (31-37) Red Cell Distribution Width 31.2 % (11.5-14.5) H Platelet Count 1103 x10^3/uL (140-400) *H Neutrophils (%) (Auto) 79 % (31-73) H Lymphocytes (%) (Auto) 15 % (24-48) L Monocytes (%) (Auto) 4 % (0-9) Eosinophils (%) (Auto) 0 % (0-3) Basophils (%) (Auto) 1 % (0-3) Neutrophils # (Auto) 14.0 x10^3/uL (1.8-7.7) H Lymphocytes # (Auto) 2.6 x10^3/uL (1.0-4.8) Monocytes # (Auto) 0.8 x10^3/uL (0.0-1.1) Eosinophils # (Auto) 0.1 x10^3/uL (0.0-0.7) Basophils # (Auto) 0.2 x10^3/uL (0.0-0.2) Segmented Neutrophils % 85 % (35-66) H Lymphocytes % 12 % (24-48) L Monocytes % 2 % (0-10) Metamyelocytes % 1 % (0-0) H Platelet Estimate Increased (ADEQUATE) Large Platelets Few Giant Platelets Occ Polychromasia Mod Anisocytosis Marked Stomatocytes Few Prothrombin Time 19.2 SEC (11.7-14.0) H Prothrombin Time INR 1.7 (0.8-1.1) H Sodium Level 137 mmol/L (136-145) Potassium Level 4.6 mmol/L (3.5-5.1) Chloride Level 98 mmol/L (98-107) Carbon Dioxide Level 28 mmol/L (21-32) Anion Gap 11 (6-14) Blood Urea Nitrogen 34 mg/dL (7-20) H Creatinine 1.3 mg/dL (0.6-1.0) H Estimated GFR (Cockcroft-Gault) 40.6 BUN/Creatinine Ratio 26 (6-20) H Glucose Level 170 mg/dL (70-99) H Calcium Level 9.4 mg/dL (8.5-10.1) Total Bilirubin 0.5 mg/dL (0.2-1.0) Aspartate Amino Transferase (AST) 17 U/L (15-37) Alanine Aminotransferase (ALT) 25 U/L (14-59) Alkaline Phosphatase 107 U/L (46-116) Total Protein 7.8 g/dL (6.4-8.2) Albumin 3.2 g/dL (3.4-5.0) L Albumin/Globulin Ratio 0.7 (1.0-1.7) L Lipase 100 U/L (73-393) Laboratory Tests 06/13/20 21:16 Laboratory Tests 06/13/20 21:16 Vital Signs: Vital Signs Date Time Temp Pulse Resp B/P (MAP) Pulse Ox O2 Delivery O2 Flow Rate FiO2 06/13/20 23:06 104 157/82 (107) 98 Room Air 06/13/20 21:56 98.6 20 98.6 EKG: EKG: [] Radiology/Procedures: Radiology/Procedures: [] Course & Med Decision Making: Course & Med Decision Making Pertinent Labs and Imaging studies reviewed. (See chart for details) Patient is a 69-year-old female who presents to the emergency room with abdominal pain, nausea, loss of appetite that started 2 weeks postop. Upon arrival to the emergency room patient appears to be dehydrated and is tachycardic. Fluids were started. Abdominal work-up was ordered including CBC, CMP, lipase, UA, CT abdomen pelvis. Lab work shows elevated WBC, elevated BUN/Cr ratio, and MARIANELA. Patient will be admitted for fluids and evaluation by vascular surgery. Patient discussed with Dr Martínez who is in agreement with plan. Lisa Disclaimer: Lisa Disclaimer: This electronic medical record was generated, in whole or in part, using a voice recognition dictation system. Departure Departure Impression: Primary Impression: Acute kidney injury Additional Impressions: Abdominal pain Thrombocythemia Disposition: ADMITTED INPATIENT Condition: STABLE Referrals: ANABEL MARTÍNEZ MD (PCP) Justicifation of Admission Dx: Justifications for Admission: Justification of Admission Dx: Yes Sepsis: Infection FREIDA MCCABE MD Jun 14, 2020 00:22
[2020-06-14] MEDS ORDERED: IOHEXOL 300 MG/ML 100ML VIAL. IV ONE (00:30)
[2020-06-14] MEDS ORDERED: IOHEXOL 240 MG/ML 50ML VIAL. PO ONE (00:30)
[2020-06-14] MEDS ORDERED: CONTRAST GIVEN. MC PRN (00:30)
--- NOTE | 2020-06-14 01:05 | RAD ---
INDICATION: Reason: recent surgery, pain / Spl. Instructions: / History: COMPARISON: June 01, 2020 TECHNIQUE: Axial CT images obtained through the abdomen and pelvis with contrast. One or more of the following individualized dose reduction techniques were utilized for this examination: 1. Automated exposure control; 2. Adjustment of the mA and/or kV according to patient size; 3. Use of iterative reconstruction technique. FINDINGS: Severe calcific atherosclerosis is again seen. Repeat demonstration of arterial graft off of the upper abdominal aorta. The superior mesenteric component has vascular flow within which appears improved from prior with some surrounding soft tissue density and inflammatory changes now seen. There is again a graft to the right adjacent to the liver without flow within proximally. [place] superior mesenteric artery again appears thrombosed. Calcific atherosclerosis of the renal artery vasculature which is not well evaluated given small size. Inferior mesenteric artery has vascular flow within it proximally. No intrahepatic bile duct dilation. Postoperative changes to the anterior abdominal wall with subcutaneous stranding to the fat and a small amount of edema and fluid. This edema also extends to the anterior aspect of the peritoneal cavity where there is a few small regions of free air. No peripancreatic fluid collection. Spleen appears slightly lower density when compared to prior although this could be from different phase of contrast. There is some heterogeneity seen in the left renal cortex but appears decreased from prior. No hydronephrosis. There is a couple of subcentimeter low-density bilateral renal lesions which is a common finding. Urinary bladder is partially distended. No dilated loops of bowel to suggest obstruction. Degenerative changes of the hips and spine. IMPRESSION: * No evidence of bowel obstruction. * Postoperative changes to the anterior abdominal wall with subcutaneous stranding of fat as well as some fluid and edema extending to the anterior aspect of the peritoneal cavity. There is also a few flecks of intraperitoneal free air postoperatively. * Repeat demonstration of postoperative changes to the arterial vasculature with contrast now seen within the superior mesenteric artery graft with surrounding inflammatory changes seen. Would correlate as to whether the patient had surgery to the superior mesenteric artery graft because the surrounding inflammatory changes could be postoperative in nature if the patient had surgery at this site. There is again not definite contrast seen in the hepatic artery graft proximally with some contrast seen more distally which could be from collateral flow or stenosis proximally. * The previously identified regions of low density along the left renal cortex are again seen but appears slightly decreased from prior and again could be from renal infarcts although pyelonephritis could have a similar appearance. Electronically signed by: Cornel Negrete MD (06/14/2020 1:01 AM) [id number]
[2020-06-14] MEDS ORDERED: MORPHINE SULFATE 10 MG/ML VIAL. IV ONE (01:45)
--- NOTE | 2020-06-14 03:35 | NUR ---
This RN received report from FAUSTO Giles. Pt. arrived on unit at 0310 by bed from the ER. Patient is A&Ox4, on room air and is able to get up standby assist x1. Admission done at this time. Call light within reach and bed in lowest position. Will continue to monitor.
[2020-06-14 03:45] VITALS: BP 116/38
--- NOTE | 2020-06-14 04:43 | NUR ---
Pt. states she usually smokes a pack a day but has "hardly had anything in the last 3 weeks" since her abdominal surgery. Addendum: 06/14/20 at 0450 by JANELLE ROWLEY RN Amended: Links added.
[2020-06-14] MEDS ORDERED: MORPHINE SULFATE 2 MG/ML VIAL. IV PRN (06:00)
[2020-06-14] MEDS ORDERED: ONDANSETRON PF 4 MG/2 ML VIAL. IVP PRN (06:00)
--- NOTE | 2020-06-14 06:03 | NUR ---
RN spoke to vascular MD this morning and they will come see patient today.
[2020-06-14] MEDS: IV NORMAL SALINE 1000ML BAG 1,000 ML IV SCH ×3 (06:13→22:17)
[2020-06-14 07:00] VITALS: BP 94/50
[2020-06-14] MEDS ORDERED: HEPARIN for IV BOLUS 10,000 UNIT/10 ML VIAL. IV PRN ×2 (09:15)
--- NOTE | 2020-06-14 09:24 | NUR ---
SW following. Discussed with RN, pt from home alone, NPO, room air. Dr. Pinto consulted. SW will continue to follow.
--- NOTE | 2020-06-14 09:49 | PDOC2 ---
CONSULT Date of Service Date of Service DATE: 06/14/20 TIME: 09:39 Reason for Consult Reason for Consult: Abdominal pain and epigastric pain, recent surgery Referring Physician Referring Physician: Dr. Joaquin Identification/Chief Complaint Chief Complaint Postprandial abdominal pain and epigastric pain Source Source: Chart review, Patient History of Present Illness Reason for Visit: This is a 69-year-old female well-known to our practice with a history of severe mesenteric artery occlusive disease who underwent a supraceliac aortic to the superior mesenteric artery and hepatic artery bypass in November 2019. She presented with sudden onset abdominal pain two weeks ago and underwent SMA thrombectomy. Patient presented last evening with complaints of postprandial epigastric abdominal pain that radiates to her left side. She states this is sharp and persists for an hour to an hour and a half post meals. She states it also presents even while taking her medications. In addition she has some nausea. She does deny fever, chills or diarrhea. CT scan done upon admission demonstrates contrast now seen within the superior mesenteric artery graft and flow within the LUPILLO. No bowel obstruction. She has been taking Xarelto and her last dose was yesterday. Currently she is not having any abdominal pain or tenderness. She is NPO. Past Medical History Cardiovascular: HTN, Hyperlipidemia, Other Pulmonary: COPD GI: GI bleed, Peptic Ulcer disease Endocrine: Diabetes Past Surgical History Past Surgical History: Hernia Repair, Other (Aorto to common hepatic and sma bypass, recent sma thrombectomy) Family History Family History: No Significant, Hypertension Social History Social History tobacco abuse ALCOHOL: occassional Drugs: None Lives: with Family Current Problem List Problem List Problems Medical Problems: (1) Acute kidney injury Status: Acute (2) Thrombocythemia Status: Acute Current Medications Current Medications Current Medications Sodium Chloride 1,000 ml @ 1,000 mls/hr 1X ONCE IV Last administered on 06/13/20at 22:30; Start 06/13/20 at 22:30; Stop 06/13/20 at 23:29; Status DC Ondansetron HCl (Zofran) 4 mg 1X ONCE IVP Last administered on 06/13/20at 23:11; Start 06/13/20 at 23:15; Stop 06/13/20 at 23:16; Status DC Iohexol (Omnipaque 240 Mg/ml) 30 ml 1X ONCE PO Last administered on 06/14/20at 00:36; Start 06/14/20 at 00:30; Stop 06/14/20 at 00:31; Status DC Iohexol (Omnipaque 300 Mg/ml) 60 ml 1X ONCE IV Last administered on 06/14/20at 00:36; Start 06/14/20 at 00:30; Stop 06/14/20 at 00:31; Status DC Info (CONTRAST GIVEN -- Rx MONITORING) 1 each PRN DAILY PRN MC SEE COMMENTS; Start 06/14/20 at 00:30; Stop 06/16/20 at 00:29 Morphine Sulfate (Morphine Sulfate) 5 mg 1X ONCE IV Last administered on 06/14/20at 01:45; Start 06/14/20 at 01:45; Stop 06/14/20 at 01:59; Status DC Sodium Chloride 1,000 ml @ 100 mls/hr Q10H IV Last administered on 06/14/20at 06:13; Start 06/14/20 at 06:00 Morphine Sulfate (Morphine Sulfate) 2 mg PRN Q2HR PRN IV PAIN; Start 06/14/20 at 06:00 Ondansetron HCl (Zofran) 4 mg PRN Q8HRS PRN IVP NAUSEA/VOMITING; Start 06/14/20 at 06:00 Heparin Sodium/ Dextrose 250 ml @ 11.86 mls/ hr CONT PRN IV PER PROTOCOL; Start 06/14/20 at 09:15 Heparin Sodium (Porcine) (Heparin Sodium) 2,200 unit PRN Q6HRS PRN IV FOR UFH LEVEL LESS THAN 0.2; Start 06/14/20 at 09:15 Heparin Sodium (Porcine) (Heparin Sodium) 1,100 unit PRN Q6HRS PRN IV FOR UFH LEVEL 0.2 - 0.29; Start 06/14/20 at 09:15 Active Scripts Active Lasix (Furosemide) 40 Mg Tablet 1 Tab PO DAILY 30 Days Klor-Con M20 (Potassium Chloride) 20 Meq Tab.er.prt 20 Meq PO TIDWMEALS 30 Days Xarelto (Rivaroxaban) 10 Mg Tablet 20 Mg PO DAILYWBKFT 30 Days Amox Tr-K Clv 875-125 Mg Tab (Amoxicillin/Potassium Clav) 1 Each Tablet 1 Tab PO BID 7 Days Feosol (Ferrous Sulfate) 325 Mg Tablet 325 Mg PO BID 90 Days Aspirin Ec (Aspirin) 325 Mg Tablet. 325 Mg PO DAILYWBKFT 90 Days Reported Protonix (Pantoprazole Sodium) 20 Mg Tablet. 40 Mg PO DAILY Actos (Pioglitazone Hcl) 30 Mg Tablet 30 Mg PO DAILY Pravastatin Sodium 20 Mg Tablet 20 Mg PO QHS Allopurinol 100 Mg Tablet 300 Mg PO DAILY Cymbalta (Duloxetine Hcl) 60 Mg Capsule. 60 Mg PO DAILY Allergies Allergies: Coded Allergies: shrimp (Verified Allergy, Intermediate, Rash, 12/12/19) ROS Review of System Constitutional: Denies fever or chills Eyes: Denies any visual disturbances HENT: Denies nasal congestion or sore throat Respiratory: Denies cough or shortness of breath Cardiovascular: Denies any palpitations or chest pain GI: As per HPI : Denies dysuria or hematuria Musculoskeletal: No joint pain Integument: Abdominal incision with steph intact Neurologic: No gross deficits Physical Exam Physical Exam Gen.: Alert and oriented -3. Cardiac: Heart rate regular. Normal carotid pulses. Lungs: CTA, nonlabored respirations. Abdomen: Soft, nontender, nondistended, midline incision dry and intact with steph. Extremities: Feet are warm, no swelling. Skin: Warm, dry, no rashes or lesions. Neurological: Motor and sensation intact Vitals VITALS Vital Signs Date Time Temp Pulse Resp B/P (MAP) Pulse Ox O2 Delivery O2 Flow Rate FiO2 06/14/20 07:00 98.5 90 16 94/50 (65) Room Air 98.5 06/14/20 03:45 95 Labs Labs Laboratory Tests Test 06/13/20 21:16 06/14/20 04:07 06/14/20 07:14 White Blood Count 17.7 x10^3/uL (4.0-11.0) Red Blood Count 3.97 x10^6/uL (3.50-5.40) Hemoglobin 9.9 g/dL (12.0-15.5) Hematocrit 31.6 % (36.0-47.0) Mean Corpuscular Volume 80 fL (79-100) Mean Corpuscular Hemoglobin 25 pg (25-35) Mean Corpuscular Hemoglobin Concent 31 g/dL (31-37) Red Cell Distribution Width 31.2 % (11.5-14.5) Platelet Count 1103 x10^3/uL (140-400) Neutrophils (%) (Auto) 79 % (31-73) Lymphocytes (%) (Auto) 15 % (24-48) Monocytes (%) (Auto) 4 % (0-9) Eosinophils (%) (Auto) 0 % (0-3) Basophils (%) (Auto) 1 % (0-3) Neutrophils # (Auto) 14.0 x10^3/uL (1.8-7.7) Lymphocytes # (Auto) 2.6 x10^3/uL (1.0-4.8) Monocytes # (Auto) 0.8 x10^3/uL (0.0-1.1) Eosinophils # (Auto) 0.1 x10^3/uL (0.0-0.7) Basophils # (Auto) 0.2 x10^3/uL (0.0-0.2) Segmented Neutrophils % 85 % (35-66) Lymphocytes % 12 % (24-48) Monocytes % 2 % (0-10) Metamyelocytes % 1 % (0-0) Platelet Estimate Increased (ADEQUATE) Large Platelets Few Giant Platelets Occ Polychromasia Mod Anisocytosis Marked Stomatocytes Few Prothrombin Time 19.2 SEC (11.7-14.0) Prothromb Time International Ratio 1.7 (0.8-1.1) Sodium Level 137 mmol/L (136-145) Potassium Level 4.6 mmol/L (3.5-5.1) Chloride Level 98 mmol/L (98-107) Carbon Dioxide Level 28 mmol/L (21-32) Anion Gap 11 (6-14) Blood Urea Nitrogen 34 mg/dL (7-20) Creatinine 1.3 mg/dL (0.6-1.0) Estimated GFR (Cockcroft-Gault) 40.6 BUN/Creatinine Ratio 26 (6-20) Glucose Level 170 mg/dL (70-99) Calcium Level 9.4 mg/dL (8.5-10.1) Total Bilirubin 0.5 mg/dL (0.2-1.0) Aspartate Amino Transf (AST/SGOT) 17 U/L (15-37) Alanine Aminotransferase (ALT/SGPT) 25 U/L (14-59) Alkaline Phosphatase 107 U/L (46-116) Total Protein 7.8 g/dL (6.4-8.2) Albumin 3.2 g/dL (3.4-5.0) Albumin/Globulin Ratio 0.7 (1.0-1.7) Lipase 100 U/L (73-393) Glucose (Fingerstick) 128 mg/dL (70-99) 95 mg/dL (70-99) Laboratory Tests Test 06/13/20 21:16 06/14/20 04:07 06/14/20 07:14 White Blood Count 17.7 x10^3/uL (4.0-11.0) Red Blood Count 3.97 x10^6/uL (3.50-5.40) Hemoglobin 9.9 g/dL (12.0-15.5) Hematocrit 31.6 % (36.0-47.0) Mean Corpuscular Volume 80 fL (79-100) Mean Corpuscular Hemoglobin 25 pg (25-35) Mean Corpuscular Hemoglobin Concent 31 g/dL (31-37) Red Cell Distribution Width 31.2 % (11.5-14.5) Platelet Count 1103 x10^3/uL (140-400) Neutrophils (%) (Auto) 79 % (31-73) Lymphocytes (%) (Auto) 15 % (24-48) Monocytes (%) (Auto) 4 % (0-9) Eosinophils (%) (Auto) 0 % (0-3) Basophils (%) (Auto) 1 % (0-3) Neutrophils # (Auto) 14.0 x10^3/uL (1.8-7.7) Lymphocytes # (Auto) 2.6 x10^3/uL (1.0-4.8) Monocytes # (Auto) 0.8 x10^3/uL (0.0-1.1) Eosinophils # (Auto) 0.1 x10^3/uL (0.0-0.7) Basophils # (Auto) 0.2 x10^3/uL (0.0-0.2) Segmented Neutrophils % 85 % (35-66) Lymphocytes % 12 % (24-48) Monocytes % 2 % (0-10) Metamyelocytes % 1 % (0-0) Platelet Estimate Increased (ADEQUATE) Large Platelets Few Giant Platelets Occ Polychromasia Mod Anisocytosis Marked Stomatocytes Few Prothrombin Time 19.2 SEC (11.7-14.0) Prothromb Time International Ratio 1.7 (0.8-1.1) Sodium Level 137 mmol/L (136-145) Potassium Level 4.6 mmol/L (3.5-5.1) Chloride Level 98 mmol/L (98-107) Carbon Dioxide Level 28 mmol/L (21-32) Anion Gap 11 (6-14) Blood Urea Nitrogen 34 mg/dL (7-20) Creatinine 1.3 mg/dL (0.6-1.0) Estimated GFR (Cockcroft-Gault) 40.6 BUN/Creatinine Ratio 26 (6-20) Glucose Level 170 mg/dL (70-99) Calcium Level 9.4 mg/dL (8.5-10.1) Total Bilirubin 0.5 mg/dL (0.2-1.0) Aspartate Amino Transf (AST/SGOT) 17 U/L (15-37) Alanine Aminotransferase (ALT/SGPT) 25 U/L (14-59) Alkaline Phosphatase 107 U/L (46-116) Total Protein 7.8 g/dL (6.4-8.2) Albumin 3.2 g/dL (3.4-5.0) Albumin/Globulin Ratio 0.7 (1.0-1.7) Lipase 100 U/L (73-393) Glucose (Fingerstick) 128 mg/dL (70-99) 95 mg/dL (70-99) Images Images CT scan IMPRESSION: * No evidence of bowel obstruction. * Postoperative changes to the anterior abdominal wall with subcutaneous stranding of fat as well as some fluid and edema extending to the anterior aspect of the peritoneal cavity. There is also a few flecks of intraperitoneal free air postoperatively. * Repeat demonstration of postoperative changes to the arterial vasculature with contrast now seen within the superior mesenteric artery graft with surrounding inflammatory changes seen. Would correlate as to whether the patient had surgery to the superior mesenteric artery graft because the surrounding inflammatory changes could be postoperative in nature if the patient had surgery at this site. There is again not definite contrast seen in the hepatic artery graft proximally with some contrast seen more distally which could be from collateral flow or stenosis proximally. * The previously identified regions of low density along the left renal cortex are again seen but appears slightly decreased from prior and again could be from renal infarcts although pyelonephritis could have a similar Assessment/Plan Assessment/Plan 69-year-old female with history of superior mesenteric artery occlusion status post bypass and recent thrombectomy. CT scan reports vascular flow within the SMA graft as well as patent LUPILLO. Dr. Pinto will review the CT scan. Would recomm end a gastrointestinal consult as well as starting the patient on a heparin drip and holding the Xarelto. Recommend the patient remain n.p.o. until seen by GI. Will make additional recommendations pending the evaluation of the CT scan TIANNA RAMIRES COMMUNICATIONS TECHNOLOGIST Jun 14, 2020 09:49
[2020-06-14 11:00] VITALS: BP 95/60
[2020-06-14] MEDS: HEPARIN 25,000UTS/250ML PREMIX 250 ML IV PRN (11:20)
[2020-06-14] MEDS ORDERED: POLYETHYLENE GLYCOL 3350 17 GM PACKET. PO PRN (12:00)
--- NOTE | 2020-06-14 12:00 | PDOC ---
Date of Service: DATE: 06/14/20 TIME: 11:44 Subjective: Subjective: 69 y/o female - third admission this month. Please see GI consult from 05/30/20 and following progress notes. This time, reports left-sided "stabbing" chest pain w/ eating. Also some "slow" swallowing solids - pills got stuck a couple times. Does okay w/ liquids. No bleeding. Tells me no abdominal pain. On PPI, iron, Eliquis, ASA. No SOA. Objective: Objective: Had hematology eval during last admission - unable to view results of some labs. Vital Signs: Vital Signs Date Time Temp Pulse Resp B/P (MAP) Pulse Ox O2 Delivery O2 Flow Rate FiO2 06/14/20 08:00 Room Air 06/14/20 07:00 98.5 90 16 94/50 (65) 98.5 06/14/20 03:45 95 Labs: Laboratory Tests Test 06/13/20 21:16 06/14/20 04:07 06/14/20 07:14 06/14/20 10:18 White Blood Count 17.7 x10^3/uL Red Blood Count 3.97 x10^6/uL Hemoglobin 9.9 g/dL Hematocrit 31.6 % Mean Corpuscular Volume 80 fL Mean Corpuscular Hemoglobin 25 pg Mean Corpuscular Hemoglobin Concent 31 g/dL Red Cell Distribution Width 31.2 % Platelet Count 1103 x10^3/uL Neutrophils (%) (Auto) 79 % Lymphocytes (%) (Auto) 15 % Monocytes (%) (Auto) 4 % Eosinophils (%) (Auto) 0 % Basophils (%) (Auto) 1 % Neutrophils # (Auto) 14.0 x10^3/uL Lymphocytes # (Auto) 2.6 x10^3/uL Monocytes # (Auto) 0.8 x10^3/uL Eosinophils # (Auto) 0.1 x10^3/uL Basophils # (Auto) 0.2 x10^3/uL Segmented Neutrophils % 85 % Lymphocytes % 12 % Monocytes % 2 % Metamyelocytes % 1 % Platelet Estimate Increased Large Platelets Few Giant Platelets Occ Polychromasia Mod Anisocytosis Marked Stomatocytes Few Prothrombin Time 19.2 SEC Prothromb Time International Ratio 1.7 Sodium Level 137 mmol/L Potassium Level 4.6 mmol/L Chloride Level 98 mmol/L Carbon Dioxide Level 28 mmol/L Anion Gap 11 Blood Urea Nitrogen 34 mg/dL Creatinine 1.3 mg/dL Estimated GFR (Cockcroft-Gault) 40.6 BUN/Creatinine Ratio 26 Glucose Level 170 mg/dL Calcium Level 9.4 mg/dL Total Bilirubin 0.5 mg/dL Aspartate Amino Transf (AST/SGOT) 17 U/L Alanine Aminotransferase (ALT/SGPT) 25 U/L Alkaline Phosphatase 107 U/L Total Protein 7.8 g/dL Albumin 3.2 g/dL Albumin/Globulin Ratio 0.7 Lipase 100 U/L Glucose (Fingerstick) 128 mg/dL 95 mg/dL Heparin Anti-Xa Act, Unfractionated 0.41 IU/mL Imaging: AAS Impression: Nonobstructive bowel gas pattern. CT A/P IMPRESSION: * No evidence of bowel obstruction. * Postoperative changes to the anterior abdominal wall with subcutaneous stranding of fat as well as some fluid and edema extending to the anterioraspect of the peritoneal cavity. There is also a few flecks of intraperitoneal free air postoperatively. * Repeat demonstration of postoperative changes to the arterial vasculature with contrast now seen within the superior mesenteric artery graft with surrounding inflammatory changes seen. Would correlate as to whether the patient had surgery to the superior mesenteric artery graft because the surrounding inflammatory changes could be postoperative in nature if the patient had surgery at this site. There is again not definite contrast seen in the hepatic artery graft proximally with some contrast seen more distally which could be from collateral flow or stenosis proximally. * The previously identified regions of low density along the left renal cortex are again seen but appears slightly decreased from prior and again could be from renal infarcts although pyelonephritis could have a similar appearance. 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 Jean. Okay to try diet per GI - could start at clears, advance as tolerated. Note plans for Heparin. Empiric treatment for possible tabitha esophagitis. Will also ask cardiology to see re: chest pain (saw Dr. Muir here in 11/2018). Justicifation of Admission Dx: Justifications for Admission: Justification of Admission Dx: Yes Sepsis: Infection ELDA HUTTON Jun 14, 2020 12:00
--- NOTE | 2020-06-14 12:34 | PDOC2 ---
JUANA JETT ASSISTANT CLINICAL NURSE MANAGER 06/14/20 1234: CARDIAC CONSULT DATE OF CONSULT Date of Consult DATE: 06/14/20 TIME: 12:17 REASON FOR CONSULT Reason for Consult: Chest pain REFERRING PHYSICIAN Referring Physician: jr SOURCE Source: Chart review, Patient HISTORY OF PRESENT ILLNESS HISTORY OF PRESENT ILLNESS This is a 69 yo female admitted for complains of abdominal pain and chest pain. She had SMA revascularization about 2 wks ago per vascular and has been on ASA and xarelto. She also presented with sensation that medications getting stuck with swallowing down to her epigastric region. Her chest pain which is pressure seems to occur after ingesting solid food. It has been uncomfortable for prompting her to decrease her intake. Consult is for chest pain. She has had nausea but no SOA. Denies any ZHAO. No fever or chills. She has been compliant with her medications. No black stools and no hematemesis. Denies any palpitations, frequent dizziness, no jaw, scapular pain or arm heaviness. Denies frequent indigestion. Presently her CP is better and her abd pain is gone. No fever or chills. 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 Partial 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 Bilateral TKA Right colectomy hernia repair cataract removal FAMILY HISTORY Family History noncontributory SOCIAL HISTORY Smoke: <1 pack per day ALCOHOL: none Drugs: None Lives: with Family CURRENT MEDICATIONS CURRENT MEDICATIONS Current Medications Medications (Trade) Dose Ordered Sig/Kira Route PRN Reason Start Time Stop Time Status Last Admin Dose Admin Sodium Chloride 1,000 ml @ 1,000 mls/hr 1X ONCE IV 06/13/20 22:30 06/13/20 23:29 DC 06/13/20 22:30 Ondansetron HCl (Zofran) 4 mg 1X ONCE IVP 06/13/20 23:15 06/13/20 23:16 DC 06/13/20 23:11 Iohexol (Omnipaque 240 Mg/ml) 30 ml 1X ONCE PO 06/14/20 00:30 06/14/20 00:31 DC 06/14/20 00:36 Iohexol (Omnipaque 300 Mg/ml) 60 ml 1X ONCE IV 06/14/20 00:30 06/14/20 00:31 DC 06/14/20 00:36 Morphine Sulfate (Morphine Sulfate) 5 mg 1X ONCE IV 06/14/20 01:45 06/14/20 01:59 DC 06/14/20 01:45 Sodium Chloride 1,000 ml @ 100 mls/hr Q10H IV 06/14/20 06:00 06/14/20 06:13 Heparin Sodium/ Dextrose 250 ml @ 11.86 mls/ hr CONT PRN IV PER PROTOCOL 06/14/20 09:15 06/14/20 11:20 ALLERGIES ALLERGIES: Coded Allergies: shrimp (Verified Allergy, Intermediate, Rash, 12/12/19) ROS Review of System 14 point ROS evaluated with pertinent positives noted per HPI PHYSICAL EXAM General: Alert, Oriented X3, Cooperative, No acute distress HEENT: Atraumatic, Mucous membr. moist/pink Lungs: Clear to auscultation, Normal air movement Heart: Regular rate (no tele), Normal S1, Normal S2, Other (2/6 systolic murmur to LLS border) Abdomen: Soft, No tenderness Extremities: No cyanosis, No edema Skin: No breakdown, No significant lesion Neuro: Normal speech, Sensation intact Psych/Mental Status: Mental status NL, Mood NL MUSCULOSKELETAL: Osteoarthritic changes both hands VITALS/I&O VITALS/I&O: Vital Signs Date Time Temp Pulse Resp B/P (MAP) Pulse Ox O2 Delivery O2 Flow Rate FiO2 06/14/20 08:00 Room Air 06/14/20 07:00 98.5 90 16 94/50 (65) 98.5 06/14/20 03:45 95 I & O 06/13/20 06/13/20 06/14/20 15:00 23:00 07:00 Intake Total 0 ml Output Total 0 ml Balance 0 ml LABS Lab: Laboratory Tests Test 06/13/20 21:16 06/14/20 04:07 8/21/20 07:14 06/14/20 10:18 White Blood Count 17.7 x10^3/uL (4.0-11.0) H Red Blood Count 3.97 x10^6/uL (3.50-5.40) Hemoglobin 9.9 g/dL (12.0-15.5) L Hematocrit 31.6 % (36.0-47.0) L Mean Corpuscular Volume 80 fL (79-100) # Mean Corpuscular Hemoglobin 25 pg (25-35) Mean Corpuscular Hemoglobin Concent 31 g/dL (31-37) Red Cell Distribution Width 31.2 % (11.5-14.5) H Platelet Count 1103 x10^3/uL (140-400) *H Neutrophils (%) (Auto) 79 % (31-73) H Lymphocytes (%) (Auto) 15 % (24-48) L Monocytes (%) (Auto) 4 % (0-9) Eosinophils (%) (Auto) 0 % (0-3) Basophils (%) (Auto) 1 % (0-3) Neutrophils # (Auto) 14.0 x10^3/uL (1.8-7.7) H Lymphocytes # (Auto) 2.6 x10^3/uL (1.0-4.8) Monocytes # (Auto) 0.8 x10^3/uL (0.0-1.1) Eosinophils # (Auto) 0.1 x10^3/uL (0.0-0.7) Basophils # (Auto) 0.2 x10^3/uL (0.0-0.2) Segmented Neutrophils % 85 % (35-66) H Lymphocytes % 12 % (24-48) L Monocytes % 2 % (0-10) Metamyelocytes % 1 % (0-0) H Platelet Estimate Increased (ADEQUATE) Large Platelets Few Giant Platelets Occ Polychromasia Mod Anisocytosis Marked Stomatocytes Few Prothrombin Time 19.2 SEC (11.7-14.0) H Prothrombin Time INR 1.7 (0.8-1.1) H Sodium Level 137 mmol/L (136-145) Potassium Level 4.6 mmol/L (3.5-5.1) Chloride Level 98 mmol/L (98-107) Carbon Dioxide Level 28 mmol/L (21-32) Anion Gap 11 (6-14) Blood Urea Nitrogen 34 mg/dL (7-20) H Creatinine 1.3 mg/dL (0.6-1.0) H Estimated GFR (Cockcroft-Gault) 40.6 BUN/Creatinine Ratio 26 (6-20) H Glucose Level 170 mg/dL (70-99) H Calcium Level 9.4 mg/dL (8.5-10.1) Total Bilirubin 0.5 mg/dL (0.2-1.0) Aspartate Amino Transferase (AST) 17 U/L (15-37) Alanine Aminotransferase (ALT) 25 U/L (14-59) Alkaline Phosphatase 107 U/L (46-116) Total Protein 7.8 g/dL (6.4-8.2) Albumin 3.2 g/dL (3.4-5.0) L Albumin/Globulin Ratio 0.7 (1.0-1.7) L Lipase 100 U/L (73-393) Glucose (Fingerstick) 128 mg/dL (70-99) H 95 mg/dL (70-99) Heparin Anti-Xa Act, Unfractionated 0.41 IU/mL (0.30-0.70) Test 06/14/20 12:16 Glucose (Fingerstick) 97 mg/dL (70-99) Laboratory Tests 06/13/20 21:16 Laboratory Tests 06/13/20 21:16 ECHOCARDIOGRAM ECHOCARDIOGRAM <Conclusion> The systolic function is mildly impaired. EF 45% There is mild global hypokinesis. Doppler and Color Flow revealed mild aortic regurgitation. Doppler and Color Flow revealed trace tricuspid regurgitation. Estimated PAP is 43-48 mmHg. DATE: 06/07/20 1301 STRESS TEST STRESS TEST Conclusion 1. No evidence of stress induced EKG changes 2. Fixed inferior wall defect with mild rose-infarct ischemia suggestive of pr ior infarct. 3. Normal LV function with ejection fraction of 60-70% 4. Moderate risk study. DATE: 12/08/19 0925 ASSESSMENT/PLAN ASSESSMENT/PLAN 1. Abdominal pain: 06/01/2020 SMA revascularization per vascular 2. Odynophagia: possible esophageal stricture, globus. feeling solid and meds getting stuck midway 2. Severe Thrombocytosis: 1103, unclear etiology, recently evaluated by heme. defer to PCP 3. Chest pain 4. CAD: recent echo with EF and WM nml 5. 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 HTN: controlled 7. HLP 8. DM2 9. Chest pain: Abnormal EKG, possible wellens morphology Recommendations 1. Her symptoms appears to be GI related but with her significant cardiac risk factors and abnormal EKG will trend troponin and will transfer to 5N for further telemetry monitoring 2. Xarelto on hold and switch to heparin drip for now per vascular for potential endoscopy. 3. Continue with secondary prevention measures IGNACIO ROUSSEAU MD 06/14/20 1732: CARDIAC CONSULT ASSESSMENT/PLAN ASSESSMENT/PLAN Patient seen and examined. Agree with AIRLINE PILOT FLIGHT INSTRUCTOR's assessment and plan. Chest pain with atypical features and most probably GI etiology. Myocardial infarction has been ruled out. Recent 2D echo showed LVEF 45% and stress test did not show any significant amount of ischemia. GI team starting antifungal therapy for possible candidal esophagitis PAD status clinically stable Thank you for your consultation JUANA JETT APRN Jun 14, 2020 12:34 IGNACIO ROUSSEAU MD Jun 14, 2020 17:32
--- NOTE | 2020-06-14 12:40 | EKG ---
[facility] [address] [place] [address] Test Date: 2020-06-14 Test Time: 12:38:11 Pat Name: CHOCO YEH Department: Room: 402 1 Gender: F Chief Nursing Officer: JOSIE : 1950 Requested By: JUANA JETT Order Number: [id number] Reading MD: Measurements Intervals [place] Rate: 93 P: 73 NM: 150 QRS: 64 QRSD: 86 T: 81 QT: 400 QTc: 500 Interpretive Statements SINUS RHYTHM T ABNORMALITY IN ANTEROSEPTAL LEADS PROLONGED QT ABNORMAL ECG RI6.02 Compared to ECG 12/06/2019 09:56:15 T-wave abnormality now present Prolonged QT interval now present
--- NOTE | 2020-06-14 12:50 | PDOC ---
Provider Note Provider Note Vascular Surgery Consult - see full note by Nilsa Olguin ACADEMIC GUIDANCE SPECIALIST, I agree with her evaluation and plan. I saw the patient on 06/14/2020 69 year old female who recently underwent aortic to superior mesenteric artery bypass thrombectomy. She has been admitted with pain in her throat and chest which occurs when trying to swallow food and liquids. Solid foods feel like they are getting stuck in her esophagus. She reports no abdominal pain when eating or at rest. She reports regular bowel movements. On exam abdomen is soft with no tenderness to deep palpation, no distension and incision healing well with no signs of infection. CT with IV contast reviewed which shows the aortic to SMA bypass and outflow SMA/branches are patent. The hepatic artery bypass is chronically occluded. No signs of bowel ischemia. Recommend GI evaluation and sanju yanes EGD to evaluate esophagus and stomach. Will anticoagulate with a heparin drip and hold xarelto for possible EGD. ID evaluating with elevated WBC 17. Abdominal incision healing well and steph can be removed next week. Justicifation of Admission Dx: Justifications for Admission: Justification of Admission Dx: Yes Sepsis: Infection YANG MENDEZ MD Jun 14, 2020 12:50
--- NOTE | 2020-06-14 12:55 | PDOC ---
Infectious Disease Note Vital Sign Vital Signs Vital Signs Date Time Temp Pulse Resp B/P (MAP) Pulse Ox O2 Delivery O2 Flow Rate FiO2 06/14/20 08:00 Room Air 06/14/20 07:00 98.5 90 16 94/50 (65) 98.5 06/14/20 03:45 95 Labs Lab Laboratory Tests Test 06/13/20 21:16 06/14/20 04:07 06/14/20 07:14 06/14/20 10:18 White Blood Count 17.7 x10^3/uL (4.0-11.0) Red Blood Count 3.97 x10^6/uL (3.50-5.40) Hemoglobin 9.9 g/dL (12.0-15.5) Hematocrit 31.6 % (36.0-47.0) Mean Corpuscular Volume 80 fL (79-100) Mean Corpuscular Hemoglobin 25 pg (25-35) Mean Corpuscular Hemoglobin Concent 31 g/dL (31-37) Red Cell Distribution Width 31.2 % (11.5-14.5) Platelet Count 1103 x10^3/uL (140-400) Neutrophils (%) (Auto) 79 % (31-73) Lymphocytes (%) (Auto) 15 % (24-48) Monocytes (%) (Auto) 4 % (0-9) Eosinophils (%) (Auto) 0 % (0-3) Basophils (%) (Auto) 1 % (0-3) Neutrophils # (Auto) 14.0 x10^3/uL (1.8-7.7) Lymphocytes # (Auto) 2.6 x10^3/uL (1.0-4.8) Monocytes # (Auto) 0.8 x10^3/uL (0.0-1.1) Eosinophils # (Auto) 0.1 x10^3/uL (0.0-0.7) Basophils # (Auto) 0.2 x10^3/uL (0.0-0.2) Segmented Neutrophils % 85 % (35-66) Lymphocytes % 12 % (24-48) Monocytes % 2 % (0-10) Metamyelocytes % 1 % (0-0) Platelet Estimate Increased (ADEQUATE) Large Platelets Few Giant Platelets Occ Polychromasia Mod Anisocytosis Marked Stomatocytes Few Prothrombin Time 19.2 SEC (11.7-14.0) Prothromb Time International Ratio 1.7 (0.8-1.1) Sodium Level 137 mmol/L (136-145) Potassium Level 4.6 mmol/L (3.5-5.1) Chloride Level 98 mmol/L (98-107) Carbon Dioxide Level 28 mmol/L (21-32) Anion Gap 11 (6-14) Blood Urea Nitrogen 34 mg/dL (7-20) Creatinine 1.3 mg/dL (0.6-1.0) Estimated GFR (Cockcroft-Gault) 40.6 BUN/Creatinine Ratio 26 (6-20) Glucose Level 170 mg/dL (70-99) Calcium Level 9.4 mg/dL (8.5-10.1) Total Bilirubin 0.5 mg/dL (0.2-1.0) Aspartate Amino Transf (AST/SGOT) 17 U/L (15-37) Alanine Aminotransferase (ALT/SGPT) 25 U/L (14-59) Alkaline Phosphatase 107 U/L (46-116) Total Protein 7.8 g/dL (6.4-8.2) Albumin 3.2 g/dL (3.4-5.0) Albumin/Globulin Ratio 0.7 (1.0-1.7) Lipase 100 U/L (73-393) Glucose (Fingerstick) 128 mg/dL (70-99) 95 mg/dL (70-99) Heparin Anti-Xa Act, Unfractionated 0.41 IU/mL (0.30-0.70) Test 06/14/20 12:16 Glucose (Fingerstick) 97 mg/dL (70-99) Micro IMPRESSION: * No evidence of bowel obstruction. * Postoperative changes to the anterior abdominal wall with subcutaneous stranding of fat as well as some fluid and edema extending to the anterior aspect of the peritoneal cavity. There is also a few flecks of intraperitoneal free air postoperatively. * Repeat demonstration of postoperative changes to the arterial vasculature with contrast now seen within the superior mesenteric artery graft with surrounding inflammatory changes seen. Would correlate as to whether the patient had surgery to the superior mesenteric artery graft because the surrounding inflammatory changes could be postoperative in nature if the patient had surgery at this site. There is again not definite contrast seen in the hepatic artery graft proximally with some contrast seen more distally which could be from collateral flow or stenosis proximally. * The previously identified regions of low density along the left renal cortex are again seen but appears slightly decreased from prior and again could be from renal infarcts although pyelonephritis could have a similar appearance. Objective Assessment Throat pain with swallowing and sticking of food Leukocytosis MARIANELA s/p IV contrast Thrombocytosis S/p open SMA thrombectomy/REX 06/01 History of severe mesenteric artery occlusive disease who underwent a suprac eliac aortic to the superior mesenteric artery and hepatic artery bypass in November 2019. Tobaccoism Chronic obstructive pulmonary disease. Hypertension. Hyperlipidemia. Diabetes. Plan Plan of Care Dose with Micafungin awaiting cardiology eval Add Dapto and Zosyn F/u urine cults and labs GI following - May require EGD D/w Dr. Pinto Thank you # [phone] ASA FAJARDO MD Jun 14, 2020 12:55
[2020-06-14] MEDS: NYSTATIN 100,000 UNITS/ML 5 ML ORAL.SUSP. SWSW SCH ×3 (14:00→22:17)
[2020-06-14] MEDS: PANTOPRAZOLE 40 MG TABLET.DR. PO SCH (14:00)
[2020-06-14] MEDS: PIPERACILLIN/TAZOBACTAM 3.375 GM in IV NORMAL SALINE 50ML 50 ML IV SCH ×2 (14:01→17:41)
--- NOTE | 2020-06-14 14:11 | CONS ---
DATE OF CONSULTATION: 06/14/2020 LOCATION: The patient in room 42. REQUESTING PHYSICIAN: Dr. Pinto. REASON FOR CONSULTATION: Leukocytosis. HISTORY OF PRESENT ILLNESS: The patient is a 69-year-old female known to our service. Please see initial dictation consultation dated 06/01/2020 and last progress note, that is, 06/07. The patient underwent a supraceliac aortic to the superior mesenteric artery and hepatic artery bypass in 11/2019. On 06/01, she underwent SMA open thrombectomy with lysis of adhesions. She was having abdominal pain because of the mesenteric ischemia. Subsequently, she was discharged home on Augmentin, but has now returned back with complaints of anterior chest pain and fatigue. She also had some chills and sweats. Denies any gross fevers. She is not coughing anything up, but she is having issues when she swallows with things getting stuck. No cramps or diarrhea. No dysuria, frequency or urgency. She does have a history of UTI in the past. She has now been admitted for further care and evaluation I have been consulted. PAST MEDICAL HISTORY: Please see dictation from 06/01. She does have a history of Enterococcus UTI. PAST SURGICAL HISTORY: Please see dictation from 06/01. SOCIAL HISTORY: Please see dictation from 06/01. ALLERGIES: Please see dictation from 06/01. FAMILY HISTORY: Please see dictation from 06/01. CURRENT MEDICATIONS: Include heparin, ferrous sulfate, morphine, nystatin, Protonix. PHYSICAL EXAMINATION: VITAL SIGNS: She is afebrile, temperature is 98.5, pulse 90, respirations 16, blood pressure 94/50. She is on room air. CONSTITUTIONAL: She is lying down. She is cooperative. She is in no acute distress. HEENT: Pupils are equal and reactive. Normal conjunctivae. Oral cavity, pharynx is dry. No signs of gross thrush. She has dentures. She has some discomfort in her throat. NECK: Supple. Good range of motion. LUNGS: Clear to auscultation. HEART: S1, S2. ABDOMEN: Soft, no guarding or rebound, no tenderness. An incision with steph and clean. EXTREMITIES: Without clubbing or cyanosis. No gross edema. SKIN: Warm to touch without signs of rash. NEUROLOGIC: She is nonfocal. PSYCHIATRIC: Affect is pleasant. LABORATORY DATA: White count was 17.7 yesterday it was 9.9, platelets of 1103 with 85 segs, 12 lymphs. Creatinine was 1.3, glucose of 170, normal liver function study tests. Urine culture analysis are currently pending. CT abdomen and pelvis, showed postoperative changes in the anterior wall, subcutaneous stranding of fat as well as some fluid and edema exterior to the anterior aspect of the peritoneal canal. Redemonstration of postop changes in the arterial vascular and other findings as mentioned in the CT report. IMPRESSION: 1. Throat pain with swallowing and sticking of food. 2. Leukocytosis. 3. Acute kidney injury, status post IV contrast. 4. Thrombocytosis. 5. Status post open superior mesenteric artery thrombectomy and lysis of adhesions 06/01. 6. History of superior mesenteric artery occlusion as mentioned above. 7. Tobacco abuse. 8. Chronic obstructive pulmonary disease. 9. Hypertension. 10. Hyperlipidemia. 11. Diabetes. RECOMMENDATIONS: Dose micafungin. Awaiting Cardiology evaluation. We will add daptomycin and Zosyn. Follow up on urine cultures and labs. GI is following but may require EGD. This was discussed with Dr. Pinto. Thank you for asking us to participate in this patient's care. Should you have any questions, please do not hesitate to call me. ASA FAJARDO MD DR: DEJON/heriberto JOB#: [id number] / [id number] [facility]
[2020-06-14 14:26] LABS: CHOLESTEROL/HDL RATIO 4.7
[2020-06-14] MEDS: DAPTOmycin (GENERIC) IVPB 380 MG in IV NORMAL SALINE 50ML 50 ML IV SCH (14:52)
[2020-06-14 15:00] VITALS: BP 98/48
[2020-06-14] MEDS: MICAFUNGIN 100 MG in IV DEXTROSE 5% 100ML 100 ML IV SCH (16:00)
[2020-06-14] MEDS: ASPIRIN ENTERIC COATED 81 MG TABLET.DR. PO SCH (17:37)
[2020-06-14] MEDS: FERROUS SULFATE 325 MG TABLET. PO SCH (17:37)
--- NOTE | 2020-06-14 17:42 | HP ---
ADMIT DATE: 06/14/2020 CHIEF COMPLAINT AND HISTORY OF PRESENT ILLNESS: This 69-year-old white female is well known to me from followup in the office. The patient presented to the Emergency Room on the day of admission with abdominal pain. She describes it in the epigastric area, but completely different than what she has had before with mesenteric ischemia. She has had this with eating or trying to take her medicines and felt like things would get stuck in the epigastric area. She was eating very little over the last couple of days due to this discomfort and difficulty swallowing. She was admitted for the same. PAST MEDICAL HISTORY: Remarkable for COPD, arthritis, diabetes, hyperlipidemia, GERD, hypertension, prior TIA, peripheral arterial disease, mesenteric ischemia. She also has a history of neuropathy and macular degeneration. PAST SURGICAL HISTORY: Remarkable for stenting for PAD, partial 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, mesenteric bypass, left inguinal hernia repair. MEDICATIONS: Brought with the patient, listed on computer and have been addressed. ALLERGIES: SHE IS ALLERGIC TO SHRIMP. SOCIAL HISTORY: She is a current everyday smoker, does not use alcohol or drugs. Lives alone. FAMILY HISTORY: Noncontributory. REVIEW OF SYSTEMS: As mentioned above. PHYSICAL EXAMINATION: GENERAL: She is a well-developed, well-nourished white female, appears comfortable, lying in bed. VITAL SIGNS: Stable. She is afebrile. HEAD, EYES, EARS, NOSE AND THROAT: Unremarkable. NECK: Supple, without adenopathy or thyromegaly. CHEST: Clear to auscultation and percussion. HEART: Regular rate and rhythm without S3, S4 or murmur. ABDOMEN: Soft, nontender, without hepatosplenomegaly or masses. EXTREMITIES: Without cyanosis, clubbing or edema. NEUROLOGIC: She is intact. LABORATORY DATA: Initial laboratory is remarkable for white blood count of 17,700 with a platelet count of ____, hemoglobin 9.9. She has had somewhat of a left shift. Chemistry panel shows BUN 34, creatinine 1.3, initial glucose was 170, albumin is 3.2. INR is 1.7 and she is on Xarelto. Imaging shows no acute obstruction on acute abdominal series and CT scan of the abdomen does not show any acute changes other than what appeared to be postsurgical changes. IMPRESSION: Abdominal pain with dysphagia following recent mesenteric bypass for ischemia, acute kidney injury, dysphagia, thrombocytosis, diabetes. PLAN: Multiple consults, supportive care with plans to follow. ANABEL MARTÍNEZ MD DR: Raj JOB#: [id number] / [id number]
--- NOTE | 2020-06-14 17:55 | NUR ---
UFH 0.74 heparin decreased to 11.1mL/hr
--- NOTE | 2020-06-14 18:05 | NUR ---
Pt transferred to rm [id number]. Report given to Carrie. Belongings were packed and taken to new room including purse and clothing.
[2020-06-14 19:00] VITALS: BP 159/69
[2020-06-14 23:00] VITALS: BP 134/58
[2020-06-15] MEDS: PIPERACILLIN/TAZOBACTAM 3.375 GM in IV NORMAL SALINE 50ML 50 ML IV SCH ×5 (00:38→23:49)
[2020-06-15] MEDS: HEPARIN 25,000UTS/250ML PREMIX 250 ML IV PRN ×2 (02:14→08:37)
[2020-06-15 03:00] VITALS: BP 99/51
[2020-06-15 07:33] VITALS: BP 119/38
--- NOTE | 2020-06-15 08:21 | PDOC ---
Infectious Disease Note Subjective Subjective about the same. No F/c/s/N/v/D Swallowing issues persist ROS ROS o/w neg Vital Sign Vital Signs Vital Signs Date Time Temp Pulse Resp B/P (MAP) Pulse Ox O2 Delivery O2 Flow Rate FiO2 06/15/20 07:33 98.5 87 20 119/38 (65) 96 Room Air 98.5 Physical Exam PHYSICAL EXAM CONSTITUTIONAL: She is lying down. She is cooperative. She is in no acute distress. HEENT: Pupils are equal and reactive. Normal conjunctivae. Oral cavity, pharynx is dry. No signs of gross thrush. She has dentures. She has some discomfort in her throat. NECK: Supple. Good range of motion. LUNGS: Clear to auscultation. HEART: S1, S2. ABDOMEN: Soft, no guarding or rebound, no tenderness. An incision with steph and clean. EXTREMITIES: Without clubbing or cyanosis. No gross edema. SKIN: Warm to touch without signs of rash. NEUROLOGIC: She is nonfocal. PSYCHIATRIC: Affect is pleasant. Labs Lab Laboratory Tests Test 06/14/20 10:18 06/14/20 12:16 06/14/20 13:30 06/14/20 16:48 Heparin Anti-Xa Act, Unfractionated 0.41 IU/mL (0.30-0.70) Glucose (Fingerstick) 97 mg/dL (70-99) 112 mg/dL (70-99) Lactic Acid Level 0.8 mmol/L (0.4-2.0) Troponin I Quantitative 0.019 ng/mL (0.000-0.055) Triglycerides Level 147 mg/dL (0-150) Cholesterol Level 145 mg/dL (0-200) LDL Cholesterol, Calculated 85 mg/dL (0-100) VLDL Cholesterol, Calculated 29 mg/dL (0-40) Non-HDL Cholesterol Calculated 114 mg/dL (0-129) HDL Cholesterol 31 mg/dL (40-60) Cholesterol/HDL Ratio 4.7 Test 06/14/20 17:15 06/14/20 23:35 06/15/20 07:52 Heparin Anti-Xa Act, Unfractionated 0.74 IU/mL (0.30-0.70) 0.71 IU/mL (0.30-0.70) Troponin I Quantitative 0.017 ng/mL (0.000-0.055) Glucose (Fingerstick) 104 mg/dL (70-99) Micro IMPRESSION: * No evidence of bowel obstruction. * Postoperative changes to the anterior abdominal wall with subcutaneous stranding of fat as well as some fluid and edema extending to the anterior aspect of the peritoneal cavity. There is also a few flecks of intraperitoneal free air postoperatively. * Repeat demonstration of postoperative changes to the arterial vasculature with contrast now seen within the superior mesenteric artery graft with surrounding inflammatory changes seen. Would correlate as to whether the patient had surgery to the superior mesenteric artery graft because the surrounding inflammatory changes could be postoperative in nature if the patient had surgery at this site. There is again not definite contrast seen in the hepatic artery graft proximally with some contrast seen more distally which could be from collateral flow or stenosis proximally. * The previously identified regions of low density along the left renal cortex are again seen but appears slightly decreased from prior and again could be from renal infarcts although pyelonephritis could have a similar appearance. Objective Assessment Throat pain with swallowing and sticking of food Leukocytosis MARIANELA s/p IV contrast Thrombocytosis S/p open SMA thrombectomy/REX 06/01 History of severe mesenteric artery occlusive disease who underwent a supraceliac aortic to the superior mesenteric artery and hepatic artery bypass in November 2019. Tobaccoism Chronic obstructive pulmonary disease. Hypertension. Hyperlipidemia. Diabetes. Plan Plan of Care Dosed with Micafungin Cont Dapto and Zosyn F/u urine cults and labs GI following - May require EGD ASA FAJARDO MD Jun 15, 2020 08:21
[2020-06-15] MEDS: IV NORMAL SALINE 1000ML BAG 1,000 ML IV SCH ×2 (08:28→21:08)
[2020-06-15] MEDS: ASPIRIN ENTERIC COATED 81 MG TABLET.DR. PO SCH (08:29)
[2020-06-15] MEDS: FERROUS SULFATE 325 MG TABLET. PO SCH (08:29)
[2020-06-15] MEDS: PANTOPRAZOLE 40 MG TABLET.DR. PO SCH (08:30)
[2020-06-15] MEDS: NYSTATIN 100,000 UNITS/ML 5 ML ORAL.SUSP. SWSW SCH ×4 (08:30→21:00)
--- NOTE | 2020-06-15 09:07 | PDOC ---
Provider Note Provider Note vss, no temp- still has mid chest pain and odynophagia on liquids- exam ok, labs ok but wbd/platelts up- on heparin in lieu of xarelto, pantop, hold iron re esophagus status- may need BS or egd, could be tabitha esophagitis Justicifation of Admission Dx: Justifications for Admission: Justification of Admission Dx: Yes Sepsis: Infection LAZARA POLLACK MD Jun 15, 2020 09:07
[2020-06-15 09:43] LABS: BASO # 0.2 x10^3/uL (0.0-0.2); BASO % 1 % (0-3); EOS # 0.2 x10^3/uL (0.0-0.7); EOS % 1 % (0-3); HEMATOCRIT 24.2 % (36.0-47.0); HEMOGLOBIN 7.2 g/dL (12.0-15.5); LYMPH # 2.1 x10^3/uL (1.0-4.8); LYMPH % 13 % (24-48); MEAN CORPUSCULAR HEMOGLOBIN 25 pg (25-35); MEAN CORPUSCULAR HGB CONC 30 g/dL (31-37); MEAN CORPUSCULAR VOLUME 83 fL (79-100); MONO # 0.4 x10^3/uL (0.0-1.1); MONO % 2 % (0-9); NEUT # 13.4 x10^3/uL (1.8-7.7); NEUT % 82 % (31-73); PLATELET COUNT 592 x10^3/uL (140-400); RED BLOOD COUNT 2.93 x10^6/uL (3.50-5.40); RED CELL DISTRIBUTION WIDTH 31.7 % (11.5-14.5); WHITE BLOOD COUNT 16.2 x10^3/uL (4.0-11.0)
[2020-06-15] MEDS: DULoxetine HCL 30 MG CAPSULE.DR PO SCH (10:01)
--- NOTE | 2020-06-15 11:09 | PDOC ---
PROGRESS NOTES Date of Service: DATE: 06/15/20 TIME: 11:09 Subjective Subjective Continues to complain of retrosternal chest pain while swallowing. Objective Objective Vital Signs Date Time Temp Pulse Resp B/P (MAP) Pulse Ox O2 Delivery O2 Flow Rate FiO2 06/15/20 07:33 98.5 87 20 119/38 (65) 96 Room Air 98.5 Intake and Output 06/15/20 07:00 Intake Total 1050 ml Balance 1050 ml Intake Oral 0 ml IV Total 1050 ml # Voids 1 Physical Exam Abdomen: Soft, No tenderness Heart: Regular rate (no tele), Normal S1, Normal S2, Other (2/6 systolic murmur to LLS border) Extremities: No cyanosis, No edema General: Alert, Oriented X3, Cooperative, No acute distress HEENT: Atraumatic, Mucous membr. moist/pink Lungs: Clear to auscultation, Normal air movement Neuro: Normal speech, Sensation intact Psych/Mental Status: Mental status NL, Mood NL Skin: No breakdown, No significant lesion Assessment Assessment 1. Mesenteric ischemia s/p aortic to SMA/hepatic artery bypass surgery in November and more recent SMA thrombectomy 2 weeks ago. Continue management per vascular surgery team. Xarelto on hold for possible esophageal biopsy. Continue heparin infusion. 2. Odynophagia: possible candidal esophagitis. GI team planning endoscopy possibly Wednesday. Continue antifungal treatment per ID. 2. Severe Thrombocytosis: 1103, unclear etiology, recently evaluated by heme. defer to PCP 4. CAD, stable and chest pain-free. Recent echo showed EF 45% but Lexiscan nuclear stress test did not show any significant ischemia. Continue current secondary prevention measures. 5. Hx of LE PAD: [employer]ORD[employer]ATOR in the past, clinically stable 6. HTN: controlled 7. DM2, per IM Plan Plan of Care Problems Medical Problems: (1) Acute kidney injury Status: Acute (2) Thrombocythemia Status: Acute Comment Review of Relevant I have reviewed the following items lucia (where applicable) has been applied. Labs Laboratory Tests Test 06/14/20 12:16 06/14/20 13:30 06/14/20 16:48 06/14/20 17:15 Glucose (Fingerstick) 97 mg/dL (70-99) 112 mg/dL (70-99) Lactic Acid Level 0.8 mmol/L (0.4-2.0) Troponin I Quantitative 0.019 ng/mL (0.000-0.055) Triglycerides Level 147 mg/dL (0-150) Cholesterol Level 145 mg/dL (0-200) LDL Cholesterol, Calculated 85 mg/dL (0-100) VLDL Cholesterol, Calculated 29 mg/dL (0-40) Non-HDL Cholesterol Calculated 114 mg/dL (0-129) HDL Cholesterol 31 mg/dL (40-60) Cholesterol/HDL Ratio 4.7 Heparin Anti-Xa Act, Unfractionated 0.74 IU/mL (0.30-0.70) Test 06/14/20 23:35 06/15/20 07:52 06/15/20 09:12 Heparin Anti-Xa Act, Unfractionated 0.71 IU/mL (0.30-0.70) 0.51 IU/mL (0.30-0.70) Troponin I Quantitative 0.017 ng/mL (0.000-0.055) Glucose (Fingerstick) 104 mg/dL (70-99) White Blood Count 16.2 x10^3/uL (4.0-11.0) Red Blood Count 2.93 x10^6/uL (3.50-5.40) Hemoglobin 7.2 g/dL (12.0-15.5) Hematocrit 24.2 % (36.0-47.0) Mean Corpuscular Volume 83 fL (79-100) Mean Corpuscular Hemoglobin 25 pg (25-35) Mean Corpuscular Hemoglobin Concent 30 g/dL (31-37) Red Cell Distribution Width 31.7 % (11.5-14.5) Platelet Count 592 x10^3/uL (140-400) Neutrophils (%) (Auto) 82 % (31-73) Lymphocytes (%) (Auto) 13 % (24-48) Monocytes (%) (Auto) 2 % (0-9) Eosinophils (%) (Auto) 1 % (0-3) Basophils (%) (Auto) 1 % (0-3) Neutrophils # (Auto) 13.4 x10^3/uL (1.8-7.7) Lymphocytes # (Auto) 2.1 x10^3/uL (1.0-4.8) Monocytes # (Auto) 0.4 x10^3/uL (0.0-1.1) Eosinophils # (Auto) 0.2 x10^3/uL (0.0-0.7) Basophils # (Auto) 0.2 x10^3/uL (0.0-0.2) Medications Current Medications Aspirin (Ecotrin) 81 mg DAILYWBKFT PO Last administered on 06/15/20at 08:29; Start 06/14/20 at 17:00 Daptomycin 380 mg/ Sodium Chloride 50 ml @ 100 mls/hr Q24H IV Last administered on 06/14/20at 14:52; Start 06/14/20 at 13:00 Duloxetine HCl (Cymbalta) 60 mg DAILY PO Last administered on 06/15/20at 10:01; Start 06/15/20 at 09:00 Ferrous Sulfate (Feosol) 325 mg BIDWMEALS PO Last administered on 06/15/20at 08:29; Start 06/14/20 at 17:00; Stop 06/15/20 at 08:59; Status DC Micafungin Sodium 100 mg/Dextrose 100 ml @ 100 mls/hr Q24H IV Last administered on 06/14/20at 16:00; Start 06/14/20 at 14:00 Non-Formulary Medication (Pantoprazole Sodium (Protonix)) 40 mg DAILY PO ; Start 06/16/20 at 09:00; Status UNV Nystatin (Nystatin Oral Susp) 5 ml [id number] Last administered on 06/15/20at 08:30; Start 06/14/20 at 13:00 Pantoprazole Sodium (Protonix) 40 mg DAILYAC PO Last administered on 06/15/20at 08:30; Start 06/14/20 at 12:15 Piperacillin Sod/ Tazobactam Sod 3.375 gm/Sodium Chloride 50 ml @ 100 mls/hr Q6HRS IV Last administered on 06/15/20at 06:27; Start 06/14/20 at 12:30 Polyethylene Glycol (miraLAX PACKET) 17 gm PRN DAILY PRN PO CONSTIPATION; Start 06/14/20 at 12:00 Vitals/I & O Vital Sign - Last 24 Hours 06/14/20 06/14/20 06/14/20 06/14/20 15:00 18:02 19:00 20:00 Temp 98.5 98.6 98.5 98.6 Pulse 83 91 Resp 18 16 B/P (MAP) 98/48 (65) 159/69 (99) Pulse Ox 92 97 O2 Delivery Room Air Room Air Room Air 06/14/20 06/15/20 06/15/20 23:00 03:00 07:33 Temp 98.8 98.1 98.5 98.8 98.1 98.5 Pulse 99 99 87 Resp 16 16 20 B/P (MAP) 134/58 (83) 99/51 (67) 119/38 (65) Pulse Ox 96 95 96 O2 Delivery Room Air Intake and Output 06/14/20 06/14/20 06/15/20 15:00 23:00 07:00 Intake Total 1000 ml 50 ml Balance 1000 ml 50 ml IGNACIO ROUSSEAU MD Jun 15, 2020 11:09
[2020-06-15 11:39] VITALS: BP 126/44
[2020-06-15 12:32] LABS: % BANDS 3 % (0-9); % BASOS 1 % (0-3); % LYMPHS 7 % (24-48); % MONOS 1 % (0-10); % SEGS 88 % (35-66); NUCLEATED RBC 2
[2020-06-15 12:33] LABS: PLT ESTIMATE INCREASED (ADEQUATE)
[2020-06-15 12:34] LABS: ANISOCYTOSIS MOD; HYPOCHROMIA SLIGHT
--- NOTE | 2020-06-15 13:05 | PDOC ---
Date of Service: DATE: 06/15/20 TIME: 13:01 Subjective: Subjective: swallowing a little better today per patient Objective: Vital Signs: Vital Signs Date Time Temp Pulse Resp B/P (MAP) Pulse Ox O2 Delivery O2 Flow Rate FiO2 06/15/20 11:39 98.8 88 20 126/44 (71) 97 Room Air 98.8 Labs: Laboratory Tests Test 06/14/20 13:30 06/14/20 16:48 06/14/20 17:15 06/14/20 23:35 Lactic Acid Level 0.8 mmol/L (0.4-2.0) Troponin I Quantitative 0.019 ng/mL (0.000-0.055) 0.017 ng/mL (0.000-0.055) Triglycerides Level 147 mg/dL (0-150) Cholesterol Level 145 mg/dL (0-200) LDL Cholesterol, Calculated 85 mg/dL (0-100) VLDL Cholesterol, Calculated 29 mg/dL (0-40) Non-HDL Cholesterol Calculated 114 mg/dL (0-129) HDL Cholesterol 31 mg/dL (40-60) Cholesterol/HDL Ratio 4.7 Glucose (Fingerstick) 112 mg/dL (70-99) Heparin Anti-Xa Act, Unfractionated 0.74 IU/mL (0.30-0.70) 0.71 IU/mL (0.30-0.70) Test 06/15/20 07:52 06/15/20 09:12 06/15/20 11:53 Glucose (Fingerstick) 104 mg/dL (70-99) 104 mg/dL (70-99) White Blood Count 16.2 x10^3/uL (4.0-11.0) Red Blood Count 2.93 x10^6/uL (3.50-5.40) Hemoglobin 7.2 g/dL (12.0-15.5) Hematocrit 24.2 % (36.0-47.0) Mean Corpuscular Volume 83 fL (79-100) Mean Corpuscular Hemoglobin 25 pg (25-35) Mean Corpuscular Hemoglobin Concent 30 g/dL (31-37) Red Cell Distribution Width 31.7 % (11.5-14.5) Platelet Count 592 x10^3/uL (140-400) Neutrophils (%) (Auto) 82 % (31-73) Lymphocytes (%) (Auto) 13 % (24-48) Monocytes (%) (Auto) 2 % (0-9) Eosinophils (%) (Auto) 1 % (0-3) Basophils (%) (Auto) 1 % (0-3) Neutrophils # (Auto) 13.4 x10^3/uL (1.8-7.7) Lymphocytes # (Auto) 2.1 x10^3/uL (1.0-4.8) Monocytes # (Auto) 0.4 x10^3/uL (0.0-1.1) Eosinophils # (Auto) 0.2 x10^3/uL (0.0-0.7) Basophils # (Auto) 0.2 x10^3/uL (0.0-0.2) Segmented Neutrophils % 88 % (35-66) Band Neutrophils % 3 % (0-9) Lymphocytes % 7 % (24-48) Monocytes % 1 % (0-10) Basophils % 1 % (0-3) Nucleated Red Blood Cells 2 Platelet Estimate Increased (ADEQUATE) Large Platelets Present Hypochromasia Slight Anisocytosis Mod Heparin Anti-Xa Act, Unfractionated 0.51 IU/mL (0.30-0.70) Physical Exam: Physical Exam: PE: GEN: NAD LUNGS: diminished anteriorly HEART: RRR ABD: NABS, S/ND/NT NEURO/PSYCH: A & O 3 Assessment & Plan: Assessment : A/P: Left-sided chest pain, dysphagia/odynophagia- Leukocytosis, thrombocytosis, MARIANELA Chronic ELIDA - stable on PO iron GERD - on PPI (last EGD 01/2019) CRC screen - UTD (02/2019) Diverticulosis, hemorrhoids 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 Consider EGD next week Justicifation of Admission Dx: Justifications for Admission: Justification of Admission Dx: Yes Sepsis: Infection JOSE MIGUEL MICHELE MD Jun 15, 2020 13:05
[2020-06-15] MEDS: DAPTOmycin (GENERIC) IVPB 380 MG in IV NORMAL SALINE 50ML 50 ML IV SCH (13:44)
[2020-06-15] MEDS: MICAFUNGIN 100 MG in IV DEXTROSE 5% 100ML 100 ML IV SCH (14:36)
[2020-06-15 15:46] VITALS: BP 112/53
[2020-06-15 19:00] VITALS: BP 108/47
[2020-06-15 23:00] VITALS: BP 109/50
[2020-06-16 03:00] VITALS: BP 113/53
[2020-06-16] MEDS: PIPERACILLIN/TAZOBACTAM 3.375 GM in IV NORMAL SALINE 50ML 50 ML IV SCH ×3 (05:43→17:20)
[2020-06-16 06:01] LABS: HEMATOCRIT 22.7 % (36.0-47.0); HEMOGLOBIN 7.1 g/dL (12.0-15.5); RED BLOOD COUNT 2.79 x10^6/uL (3.50-5.40); RED CELL DISTRIBUTION WIDTH 30.7 % (11.5-14.5); WHITE BLOOD COUNT 10.1 x10^3/uL (4.0-11.0)
[2020-06-16 07:20] VITALS: BP 136/57
--- NOTE | 2020-06-16 07:53 | PDOC ---
Infectious Disease Note Subjective Subjective Better with less swallowing issues. No F/c/s/N/v/D Vital Sign Vital Signs Vital Signs Date Time Temp Pulse Resp B/P (MAP) Pulse Ox O2 Delivery O2 Flow Rate FiO2 06/16/20 07:20 98.2 87 16 136/57 (83) 94 Room Air 98.2 Physical Exam PHYSICAL EXAM CONSTITUTIONAL: She is lying down. She is cooperative. She is in no acute distress. looks better HEENT: Pupils are equal and reactive. Normal conjunctivae. Oral cavity, pharynx is dry. No signs of gross thrush. She has dentures. She has some discomfort in her throat. NECK: Supple. Good range of motion. LUNGS: Clear to auscultation. HEART: S1, S2. ABDOMEN: Soft, no guarding or rebound, no tenderness. An incision with steph and clean. EXTREMITIES: Without clubbing or cyanosis. No gross edema. SKIN: Warm to touch without signs of rash. NEUROLOGIC: She is nonfocal. PSYCHIATRIC: Affect is pleasant. Labs Lab Laboratory Tests Test 06/15/20 07:52 06/15/20 09:12 06/15/20 11:53 06/15/20 15:50 Glucose (Fingerstick) 104 mg/dL (70-99) 104 mg/dL (70-99) White Blood Count 16.2 x10^3/uL (4.0-11.0) Red Blood Count 2.93 x10^6/uL (3.50-5.40) Hemoglobin 7.2 g/dL (12.0-15.5) Hematocrit 24.2 % (36.0-47.0) Mean Corpuscular Volume 83 fL (79-100) Mean Corpuscular Hemoglobin 25 pg (25-35) Mean Corpuscular Hemoglobin Concent 30 g/dL (31-37) Red Cell Distribution Width 31.7 % (11.5-14.5) Platelet Count 592 x10^3/uL (140-400) Neutrophils (%) (Auto) 82 % (31-73) Lymphocytes (%) (Auto) 13 % (24-48) Monocytes (%) (Auto) 2 % (0-9) Eosinophils (%) (Auto) 1 % (0-3) Basophils (%) (Auto) 1 % (0-3) Neutrophils # (Auto) 13.4 x10^3/uL (1.8-7.7) Lymphocytes # (Auto) 2.1 x10^3/uL (1.0-4.8) Monocytes # (Auto) 0.4 x10^3/uL (0.0-1.1) Eosinophils # (Auto) 0.2 x10^3/uL (0.0-0.7) Basophils # (Auto) 0.2 x10^3/uL (0.0-0.2) Segmented Neutrophils % 88 % (35-66) Band Neutrophils % 3 % (0-9) Lymphocytes % 7 % (24-48) Monocytes % 1 % (0-10) Basophils % 1 % (0-3) Nucleated Red Blood Cells 2 Platelet Estimate Increased (ADEQUATE) Large Platelets Present Hypochromasia Slight Anisocytosis Mod Heparin Anti-Xa Act, Unfractionated 0.51 IU/mL (0.30-0.70) 0.63 IU/mL (0.30-0.70) Test 06/15/20 20:42 06/16/20 05:00 06/16/20 07:40 Glucose (Fingerstick) 82 mg/dL (70-99) 80 mg/dL (70-99) White Blood Count 10.1 x10^3/uL (4.0-11.0) Red Blood Count 2.79 x10^6/uL (3.50-5.40) Hemoglobin 7.1 g/dL (12.0-15.5) Hematocrit 22.7 % (36.0-47.0) Mean Corpuscular Volume 82 fL (79-100) Mean Corpuscular Hemoglobin 26 pg (25-35) Mean Corpuscular Hemoglobin Concent 31 g/dL (31-37) Red Cell Distribution Width 30.7 % (11.5-14.5) Platelet Count 571 x10^3/uL (140-400) Heparin Anti-Xa Act, Unfractionated 0.49 IU/mL (0.30-0.70) Micro IMPRESSION: * No evidence of bowel obstruction. * Postoperative changes to the anterior abdominal wall with subcutaneous stranding of fat as well as some fluid and edema extending to the anterior aspect of the peritoneal cavity. There is also a few flecks of intraperitoneal free air postoperatively. * Repeat demonstration of postoperative changes to the arterial vasculature with contrast now seen within the superior mesenteric artery graft with surrounding inflammatory changes seen. Would correlate as to whether the patient had surgery to the superior mesenteric artery graft because the surrounding inflammatory changes could be postoperative in nature if the patient had surgery at this site. There is again not definite contrast seen in the hepatic artery graft proximally with some contrast seen more distally which could be from collateral flow or stenosis proximally. * The previously identified regions of low density along the left renal cortex are again seen but appears slightly decreased from prior and again could be from renal infarcts although pyelonephritis could have a similar appearance. Objective Assessment Throat pain with swallowing and sticking of food - some better Leukocytosis - better MARIANELA s/p IV contrast Thrombocytosis - better S/p open SMA thrombectomy/REX 06/01 History of severe mesenteric artery occlusive disease who underwent a supraceliac aortic to the superior mesenteric artery and hepatic artery bypass in November 2019. Tobaccoism Chronic obstructive pulmonary disease. Hypertension. Hyperlipidemia. Diabetes. Plan Plan of Care Dosed with Micafungin Cont Dapto and Zosyn F/u urine cults and labs GI following - May require EGD ASA FAJARDO MD Jun 16, 2020 07:53
[2020-06-16] MEDS: IV NORMAL SALINE 1000ML BAG 1,000 ML IV SCH ×2 (08:06→17:21)
[2020-06-16] MEDS: DULoxetine HCL 30 MG CAPSULE.DR PO SCH (08:07)
[2020-06-16] MEDS: ASPIRIN ENTERIC COATED 81 MG TABLET.DR. PO SCH (08:07)
[2020-06-16] MEDS: PANTOPRAZOLE 40 MG TABLET.DR. PO SCH (08:07)
[2020-06-16] MEDS: NYSTATIN 100,000 UNITS/ML 5 ML ORAL.SUSP. SWSW SCH ×5 (08:08→20:28)
[2020-06-16] MEDS: HEPARIN 25,000UTS/250ML PREMIX 250 ML IV PRN (08:14)
[2020-06-16] MEDS ORDERED: NON FORMULARY ITEM (Pantoprazole Sodium (Protonix) 40 MG) PO SCH (09:00)
--- NOTE | 2020-06-16 10:04 | PDOC ---
Provider Note Provider Note vss, swallows some better, hb down from 9.9 to 7.1 but no blood seen- on heparin in place of xarelto re poss egd- follow hemogram, rest same Justicifation of Admission Dx: Justifications for Admission: Justification of Admission Dx: Yes Sepsis: Infection LAZARA POLLACK MD Jun 16, 2020 10:04
[2020-06-16 11:53] VITALS: BP 109/33
--- NOTE | 2020-06-16 12:14 | PDOC ---
PROGRESS NOTES Date of Service: DATE: 06/16/20 TIME: 12:14 Subjective Subjective Odynophagia improving, denied any shortness of breath Objective Objective Vital Signs Date Time Temp Pulse Resp B/P (MAP) Pulse Ox O2 Delivery O2 Flow Rate FiO2 06/16/20 11:53 98.9 77 16 109/33 (58) 97 Room Air 98.9 Intake and Output 06/16/20 06:59 Intake Total 600 ml Balance 600 ml Intake Oral 600 ml # Voids 1 Physical Exam Abdomen: Soft, No tenderness Heart: Regular rate (no tele), Normal S1, Normal S2, Other (2/6 systolic murmur to LLS border) Extremities: No cyanosis, No edema General: Alert, Oriented X3, Cooperative, No acute distress HEENT: Atraumatic, Mucous membr. moist/pink Lungs: Clear to auscultation, Normal air movement Neuro: Normal speech, Sensation intact Psych/Mental Status: Mental status NL, Mood NL Skin: No breakdown, No significant lesion Assessment Assessment 1. Mesenteric ischemia s/p aortic to SMA/hepatic artery bypass surgery in November and more recent SMA thrombectomy 2 weeks ago. Continue management per vascular surgery team. Xarelto on hold for possible esophageal biopsy. Continue heparin infusion. 2. Odynophagia: possible candidal esophagitis. GI team planning endoscopy possibly Wednesday. Continue antifungal treatment per ID. 2. Severe Thrombocytosis, unclear etiology, recently evaluated by heme. defer to PCP 4. CAD, stable and chest pain-free. Recent echo showed EF 45% but Lexiscan nuclear stress test did not show any significant ischemia. Continue current secondary prevention measures. 5. 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 HTN: controlled 7. DM2, per IM Plan Plan of Care Problems Medical Problems: (1) Acute kidney injury Status: Acute (2) Thrombocythemia Status: Acute Comment Review of Relevant I have reviewed the following items lucia (where applicable) has been applied. Labs Laboratory Tests Test 06/15/20 15:50 06/15/20 20:42 06/16/20 05:00 06/16/20 07:40 Heparin Anti-Xa Act, Unfractionated 0.63 IU/mL (0.30-0.70) 0.49 IU/mL (0.30-0.70) Glucose (Fingerstick) 82 mg/dL (70-99) 80 mg/dL (70-99) White Blood Count 10.1 x10^3/uL (4.0-11.0) Red Blood Count 2.79 x10^6/uL (3.50-5.40) Hemoglobin 7.1 g/dL (12.0-15.5) Hematocrit 22.7 % (36.0-47.0) Mean Corpuscular Volume 82 fL (79-100) Mean Corpuscular Hemoglobin 26 pg (25-35) Mean Corpuscular Hemoglobin Concent 31 g/dL (31-37) Red Cell Distribution Width 30.7 % (11.5-14.5) Platelet Count 571 x10^3/uL (140-400) Medications Current Medications Non-Formulary Medication (Pantoprazole Sodium (Protonix)) 40 mg DAILY PO ; Start 06/16/20 at 09:00; Status UNV Vitals/I & O Vital Sign - Last 24 Hours 06/15/20 06/15/20 06/15/20 06/15/20 15:46 19:00 20:00 23:00 Temp 98.6 98.5 98.6 98.6 98.5 98.6 Pulse 82 75 75 Resp 20 19 19 B/P (MAP) 112/53 (72) 108/47 (67) 109/50 (69) Pulse Ox 97 99 99 O2 Delivery Room Air Room Air Room Air Room Air 06/16/20 06/16/20 06/16/20 06/16/20 03:00 07:20 08:00 11:53 Temp 98.6 98.2 98.9 98.6 98.2 98.9 Pulse 73 87 77 Resp 19 16 16 B/P (MAP) 113/53 (73) 136/57 (83) 109/33 (58) Pulse Ox 97 94 97 O2 Delivery Room Air Room Air Room Air Room Air Intake and Output 06/15/20 06/15/20 06/16/20 14:59 22:59 06:59 Intake Total 250 ml 300 ml 50 ml Balance 250 ml 300 ml 50 ml IGNACIO ROUSSEAU MD Jun 16, 2020 12:14
--- NOTE | 2020-06-16 12:50 | PDOC ---
Date of Service: DATE: 06/16/20 TIME: 12:49 Subjective: Subjective: tolerated thick liquids Hgb 7.1 Objective: Vital Signs: Vital Signs Date Time Temp Pulse Resp B/P (MAP) Pulse Ox O2 Delivery O2 Flow Rate FiO2 06/16/20 11:53 98.9 77 16 109/33 (58) 97 Room Air 98.9 Labs: Laboratory Tests Test 06/15/20 15:50 06/15/20 20:42 06/16/20 05:00 06/16/20 07:40 Heparin Anti-Xa Act, Unfractionated 0.63 IU/mL (0.30-0.70) 0.49 IU/mL (0.30-0.70) Glucose (Fingerstick) 82 mg/dL (70-99) 80 mg/dL (70-99) White Blood Count 10.1 x10^3/uL (4.0-11.0) Red Blood Count 2.79 x10^6/uL (3.50-5.40) Hemoglobin 7.1 g/dL (12.0-15.5) Hematocrit 22.7 % (36.0-47.0) Mean Corpuscular Volume 82 fL (79-100) Mean Corpuscular Hemoglobin 26 pg (25-35) Mean Corpuscular Hemoglobin Concent 31 g/dL (31-37) Red Cell Distribution Width 30.7 % (11.5-14.5) Platelet Count 571 x10^3/uL (140-400) Physical Exam: Physical Exam: E: GEN: NAD LUNGS: diminished anteriorly HEART: RRR ABD: NABS, S/ND/NT NEURO/PSYCH: A & O 3 Assessment & Plan: Assessment : A/P: Left-sided chest pain, dysphagia/odynophagia- Leukocytosis, thrombocytosis, MARIANELA Chronic ELIDA - stable on PO iron GERD - on PPI (last EGD 01/2019) CRC screen - UTD (02/2019) Diverticulosis, hemorrhoids 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 Monitor Hgb Consider EGD next week. will d/w r Propeck Justicifation of Admission Dx: Justifications for Admission: Justification of Admission Dx: Yes Sepsis: Infection JOSE MIGUEL MICHELE MD Jun 16, 2020 12:50
[2020-06-16] MEDS: DAPTOmycin (GENERIC) IVPB 380 MG in IV NORMAL SALINE 50ML 50 ML IV SCH (13:38)
[2020-06-16] MEDS: MICAFUNGIN 100 MG in IV DEXTROSE 5% 100ML 100 ML IV SCH (14:40)
[2020-06-16 15:35] VITALS: BP 131/52
[2020-06-16 19:00] VITALS: BP 114/46
[2020-06-16 23:00] VITALS: BP 121/50
[2020-06-17] MEDS: PIPERACILLIN/TAZOBACTAM 3.375 GM in IV NORMAL SALINE 50ML 50 ML IV SCH ×2 (00:06→05:29)
[2020-06-17 03:00] VITALS: BP 128/50
[2020-06-17 05:29] LABS: HEMOGLOBIN 8.1 g/dL (12.0-15.5); RED BLOOD COUNT 3.21 x10^6/uL (3.50-5.40); RED CELL DISTRIBUTION WIDTH 30.3 % (11.5-14.5)
[2020-06-17] MEDS: IV NORMAL SALINE 1000ML BAG 1,000 ML IV SCH ×2 (05:30→19:53)
[2020-06-17 07:00] VITALS: BP 136/66
--- NOTE | 2020-06-17 07:46 | PDOC ---
DATE OF SERVICE: DATE: 06/17/20 TIME: 07:44 GENERAL General: vss and afebrile. awake and alert. no further troubles with swallowing. chest clear, heart regular, abdomen benign. Hb 8.1 and wbc 10K. ?EGD today. otherwise same. VITAL SIGNS/I&O Vital Signs/I&O: Vital Signs Date Time Temp Pulse Resp B/P (MAP) Pulse Ox O2 Delivery O2 Flow Rate FiO2 06/17/20 07:00 97.9 84 17 136/66 (89) 98 Room Air 97.9 I & O 06/16/20 06/16/20 06/17/20 15:00 23:00 07:00 Intake Total 225 ml 200 ml Balance 225 ml 200 ml ALLERGIES Allergies: Allergies Coded Allergies Type Severity Reaction Last Updated Verified shrimp Allergy Intermediate Rash 12/12/19 Yes LAB Lab: Laboratory Tests Test 06/16/20 16:25 06/16/20 20:48 06/17/20 05:07 06/17/20 07:11 Glucose (Fingerstick) 84 mg/dL (70-99) 102 mg/dL (70-99) H 85 mg/dL (70-99) White Blood Count 10.0 x10^3/uL (4.0-11.0) Red Blood Count 3.21 x10^6/uL (3.50-5.40) L Hemoglobin 8.1 g/dL (12.0-15.5) L Hematocrit 26.0 % (36.0-47.0) L Mean Corpuscular Volume 81 fL (79-100) Mean Corpuscular Hemoglobin 25 pg (25-35) Mean Corpuscular Hemoglobin Concent 31 g/dL (31-37) Red Cell Distribution Width 30.3 % (11.5-14.5) H Platelet Count 612 x10^3/uL (140-400) H Heparin Anti-Xa Act, Unfractionated 0.53 IU/mL (0.30-0.70) Laboratory Tests 06/17/20 05:07 ANABEL MARTÍNEZ MD Jun 17, 2020 07:46
[2020-06-17] MEDS: PANTOPRAZOLE 40 MG TABLET.DR. PO SCH (07:58)
[2020-06-17] MEDS: DULoxetine HCL 30 MG CAPSULE.DR PO SCH (07:58)
[2020-06-17] MEDS: ASPIRIN ENTERIC COATED 81 MG TABLET.DR. PO SCH (07:58)
[2020-06-17] MEDS: NYSTATIN 100,000 UNITS/ML 5 ML ORAL.SUSP. SWSW SCH ×4 (07:58→21:00)
--- NOTE | 2020-06-17 09:52 | PDOC ---
Date of Service: DATE: 06/17/20 TIME: 09:46 Subjective: Subjective: Denies pain and dysphagia/odynophagia. Tolerating liquids (clears this morning, thick soup last night), wants more to eat. Objective: Objective: Reviewed w/ Dr. Jean this morning - no plans for EGD w/ improvement in symptoms. Vital Signs: Vital Signs Date Time Temp Pulse Resp B/P (MAP) Pulse Ox O2 Delivery O2 Flow Rate FiO2 06/17/20 07:00 97.9 84 17 136/66 (89) 98 Room Air 97.9 Labs: Laboratory Tests Test 06/16/20 16:25 06/16/20 20:48 06/17/20 05:07 06/17/20 07:11 Glucose (Fingerstick) 84 mg/dL 102 mg/dL 85 mg/dL White Blood Count 10.0 x10^3/uL Red Blood Count 3.21 x10^6/uL Hemoglobin 8.1 g/dL Hematocrit 26.0 % Mean Corpuscular Volume 81 fL Mean Corpuscular Hemoglobin 25 pg Mean Corpuscular Hemoglobin Concent 31 g/dL Red Cell Distribution Width 30.3 % Platelet Count 612 x10^3/uL Heparin Anti-Xa Act, Unfractionated 0.53 IU/mL PE: GEN: NAD LUNGS: diminished HEART: RRR ABD: S/ND/NT NEURO/PSYCH: A & O 3 A/P: Dysphagia/odynophagia - improved; on empiric Nystatin Thrombocytosis - better Chronic ELIDA - on PO iron; h/o GERD and right colectomy for TVA - 'scopes UTD (done in 2019) S/p recent SMA thrombectomy - Xarelto held; on Heparin -- Per Dr. Jean, no plans for EGD at this time w/ improvement in swallowing. Will review recommended duration of empiric anti-fungal therapy for possible tabitha esophagitis w/ Dr. Jean. Okay to ADAT per GI. Justicifation of Admission Dx: Justifications for Admission: Justification of Admission Dx: Yes Sepsis: Infection ELDA HUTTON Jun 17, 2020 09:52
[2020-06-17] MEDS: HEPARIN 25,000UTS/250ML PREMIX 250 ML IV PRN (10:13)
--- NOTE | 2020-06-17 10:13 | NUR ---
IV Heparin was infusing at 10.4ml/hr, and new bag of Heparin also infusing at 10.4ml/hr, with no change made, cosigned with Lacey Rogers. Repeat UFH was ordered for am 06/18.
--- NOTE | 2020-06-17 10:38 | PDOC ---
Infectious Disease Note Subjective Subjective Better . No F/c/s/N/v/D ROS ROS no n/v/d/ Vital Sign Vital Signs Vital Signs Date Time Temp Pulse Resp B/P (MAP) Pulse Ox O2 Delivery O2 Flow Rate FiO2 06/17/20 07:00 97.9 84 17 136/66 (89) 98 Room Air 97.9 Physical Exam PHYSICAL EXAM CONSTITUTIONAL: She is lying down. She is cooperative. She is in no acute distress. looks better HEENT: Pupils are equal and reactive. Normal conjunctivae. Oral cavity, pharynx is dry. No signs of gross thrush. She has dentures. She has some discomfort in her throat. NECK: Supple. Good range of motion. LUNGS: Clear to auscultation. HEART: S1, S2. ABDOMEN: Soft, no guarding or rebound, no tenderness. An incision with steph and clean. EXTREMITIES: Without clubbing or cyanosis. No gross edema. SKIN: Warm to touch without signs of rash. NEUROLOGIC: She is nonfocal. PSYCHIATRIC: Affect is pleasant. Labs Lab Laboratory Tests Test 06/16/20 16:25 06/16/20 20:48 06/17/20 05:07 06/17/20 07:11 Glucose (Fingerstick) 84 mg/dL (70-99) 102 mg/dL (70-99) 85 mg/dL (70-99) White Blood Count 10.0 x10^3/uL (4.0-11.0) Red Blood Count 3.21 x10^6/uL (3.50-5.40) Hemoglobin 8.1 g/dL (12.0-15.5) Hematocrit 26.0 % (36.0-47.0) Mean Corpuscular Volume 81 fL (79-100) Mean Corpuscular Hemoglobin 25 pg (25-35) Mean Corpuscular Hemoglobin Concent 31 g/dL (31-37) Red Cell Distribution Width 30.3 % (11.5-14.5) Platelet Count 612 x10^3/uL (140-400) Heparin Anti-Xa Act, Unfractionated 0.53 IU/mL (0.30-0.70) Objective Assessment Throat pain with swallowing and sticking of food - some better Leukocytosis - better MARIANELA s/p IV contrast Thrombocytosis - better S/p open SMA thrombectomy/REX 06/01 History of severe mesenteric artery occlusive disease who underwent a supraceliac aortic to the superior mesenteric artery and hepatic artery bypass in November 2019. Tobaccoism Chronic obstructive pulmonary disease. Hypertension. Hyperlipidemia. Diabetes. Plan Plan of Care change antibiotics to po sandyin AMANDA RAPHAEL MD Jun 17, 2020 10:38
--- NOTE | 2020-06-17 10:49 | NUR ---
SW following. Discussed with RN, pt from home alone, clear liquid diet. Abx switched to po Augmentin. No plans for EGD per GI note. SW will continue to follow.
[2020-06-17 11:00] VITALS: BP 134/63
--- NOTE | 2020-06-17 12:46 | PDOC ---
Provider Note Date of Service: DATE: 06/17/20 TIME: 12:43 Provider Note Provider Note Vascular S: Patient seen and examined in room. Patient currently is eating lunch that is full liquid. She is tolerating well and ready to advance to a more solid diet. O: Awake and alert Vital signs stable, afebrile Abdomen is soft, nontender nondistended. Incision is well approximated with steph in place. A/P:69 year old female who recently underwent aortic to superior mesenteric artery bypass thrombectomy admitted with "food and medicine getting caught in throat". Swallowing improved, tolerating diet. Recommend removing steph tomorrow. If patient is ready for discharge can stop heparin drip and resume Xarelto. Patient to follow-up with Dr. Pinto in 3 months with ultrasound and office visit. We will sign off. Justicifation of Admission Dx: Justifications for Admission: Justification of Admission Dx: Yes Sepsis: Infection TIANNA RAMIRES APRN Jun 17, 2020 12:46
[2020-06-17 15:00] VITALS: BP 113/48
--- NOTE | 2020-06-17 16:19 | PDOC ---
PROGRESS NOTES Date of Service: DATE: 06/17/20 TIME: 16:19 Subjective Subjective No new complaints Objective Objective Vital Signs Date Time Temp Pulse Resp B/P (MAP) Pulse Ox O2 Delivery O2 Flow Rate FiO2 06/17/20 15:00 98.4 77 17 113/48 (69) 95 Room Air 98.4 Intake and Output 06/17/20 07:00 Intake Total 425 ml Balance 425 ml Intake Oral 425 ml # Voids 5 Physical Exam Abdomen: Soft, No tenderness Heart: Regular rate (no tele), Normal S1, Normal S2, Other (2/6 systolic murmur to LLS border) Extremities: No cyanosis, No edema General: Alert, Oriented X3, Cooperative, No acute distress HEENT: Atraumatic, Mucous membr. moist/pink Lungs: Clear to auscultation, Normal air movement Neuro: Normal speech, Sensation intact Psych/Mental Status: Mental status NL, Mood NL Skin: No breakdown, No significant lesion Assessment Assessment 1. Mesenteric ischemia s/p aortic to SMA/hepatic artery bypass surgery in November and more recent SMA thrombectomy 2 weeks ago. Continue management per vascular surgery team. Resume xarelto prior to DC home. 2. Odynophagia: possible candidal esophagitis. Continue antifungal treatment per ID. 2. Severe Thrombocytosis, unclear etiology, recently evaluated by heme. defer to PCP 4. CAD, stable and chest pain-free. Recent echo showed EF 45% but Lexiscan nuclear stress test did not show any significant ischemia. Continue current secondary prevention measures. 5. 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 HTN: controlled 7. DM2, per IM Plan Plan of Care Problems Medical Problems: (1) Acute kidney injury Status: Acute (2) Thrombocythemia Status: Acute Comment Review of Relevant I have reviewed the following items lucia (where applicable) has been applied. Labs Laboratory Tests Test 06/16/20 16:25 06/16/20 20:48 06/17/20 05:07 06/17/20 07:11 Glucose (Fingerstick) 84 mg/dL (70-99) 102 mg/dL (70-99) 85 mg/dL (70-99) White Blood Count 10.0 x10^3/uL (4.0-11.0) Red Blood Count 3.21 x10^6/uL (3.50-5.40) Hemoglobin 8.1 g/dL (12.0-15.5) Hematocrit 26.0 % (36.0-47.0) Mean Corpuscular Volume 81 fL (79-100) Mean Corpuscular Hemoglobin 25 pg (25-35) Mean Corpuscular Hemoglobin Concent 31 g/dL (31-37) Red Cell Distribution Width 30.3 % (11.5-14.5) Platelet Count 612 x10^3/uL (140-400) Heparin Anti-Xa Act, Unfractionated 0.53 IU/mL (0.30-0.70) Test 06/17/20 11:08 Glucose (Fingerstick) 88 mg/dL (70-99) Medications Current Medications Amoxicillin/ Clavulanate Potassium (Augmentin 875/ 125mg) 1 tab BID PO ; Start 06/17/20 at 21:00 Lactobacillus Rhamnosus (Culturelle) 1 cap BID PO ; Start 06/17/20 at 21:00 Vitals/I & O Vital Sign - Last 24 Hours 06/16/20 06/16/20 06/16/20 06/17/20 19:00 20:00 23:00 03:00 Temp 98.5 98.4 98.1 98.5 98.4 98.1 Pulse 70 77 77 Resp 16 18 18 B/P (MAP) 114/46 (68) 121/50 (73) 128/50 (76) Pulse Ox 98 95 99 O2 Delivery Room Air Room Air Room Air Room Air 06/17/20 06/17/20 06/17/20 06/17/20 07:00 08:00 11:00 15:00 Temp 97.9 98.3 98.4 97.9 98.3 98.4 Pulse 84 81 77 Resp 17 16 17 B/P (MAP) 136/66 (89) 134/63 (86) 113/48 (69) Pulse Ox 98 98 95 O2 Delivery Room Air Room Air Room Air Room Air Intake and Output 0 06/16/20 06/16/20 06/17/20 15:00 23:00 07:00 Intake Total 225 ml 200 ml Balance 225 ml 200 ml IGNACIO ROUSSEAU MD Jun 17, 2020 16:19
[2020-06-17 19:00] VITALS: BP 150/72
[2020-06-17] MEDS: AMOXICILLIN/K CLAV 875/125MG TABLET. PO SCH (20:58)
[2020-06-17] MEDS: LACTOBACILLUS RHAMNOSUS GG 1 CAPSULE. PO SCH (20:58)
[2020-06-17 23:00] VITALS: BP 122/55
[2020-06-18 03:00] VITALS: BP 103/54
[2020-06-18 04:41] LABS: HEMATOCRIT 24.4 % (36.0-47.0); HEMOGLOBIN 7.8 g/dL (12.0-15.5); RED BLOOD COUNT 3.03 x10^6/uL (3.50-5.40); RED CELL DISTRIBUTION WIDTH 29.9 % (11.5-14.5)
[2020-06-18 07:00] VITALS: BP 140/62
[2020-06-18] MEDS: IV NORMAL SALINE 1000ML BAG 1,000 ML IV SCH ×2 (07:00→10:00)
[2020-06-18] MEDS ORDERED: NYST100054 SWSW (08:02)
[2020-06-18] MEDS ORDERED: RIVAROXABAN 10 MG TABLET. PO SCH ×2 (08:15→10:30)
--- NOTE | 2020-06-18 08:38 | NUR ---
SW following. Chart reviewed, discharge order for home with self care and PO Augmentin. No further SW needs.
[2020-06-18] MEDS: LACTOBACILLUS RHAMNOSUS GG 1 CAPSULE. PO SCH (09:16)
[2020-06-18] MEDS: PANTOPRAZOLE 40 MG TABLET.DR. PO SCH (09:16)
[2020-06-18] MEDS: DULoxetine HCL 30 MG CAPSULE.DR PO SCH (09:16)
[2020-06-18] MEDS: ASPIRIN ENTERIC COATED 81 MG TABLET.DR. PO SCH (09:16)
[2020-06-18] MEDS: NYSTATIN 100,000 UNITS/ML 5 ML ORAL.SUSP. SWSW SCH (09:16)
[2020-06-18] MEDS: AMOXICILLIN/K CLAV 875/125MG TABLET. PO SCH (10:32)
[2020-06-18 11:00] VITALS: BP 131/60
--- NOTE | 2020-06-18 11:00 | NUR ---
This RN removed 43 steph from patients midline incision, per 's orders. Patient tolerated procedure well. Education provided on incision cleaning. Will continue to monitor patient.
--- NOTE | 2020-06-18 11:03 | PDOC ---
Infectious Disease Note Subjective Subjective Better . No F/c/s/N/v/D Vital Sign Vital Signs Vital Signs Date Time Temp Pulse Resp B/P (MAP) Pulse Ox O2 Delivery O2 Flow Rate FiO2 06/18/20 07:45 Room Air 06/18/20 07:00 97.7 78 18 140/62 (88) 97 97.7 Physical Exam PHYSICAL EXAM CONSTITUTIONAL: She is lying down. She is cooperative. She is in no acute distress. looks better HEENT: Pupils are equal and reactive. Normal conjunctivae. Oral cavity, pharynx is dry. No signs of gross thrush. She has dentures. She has some discomfort in her throat. NECK: Supple. Good range of motion. LUNGS: Clear to auscultation. HEART: S1, S2. ABDOMEN: Soft, no guarding or rebound, no tenderness. An incision with steph and clean. EXTREMITIES: Without clubbing or cyanosis. No gross edema. SKIN: Warm to touch without signs of rash. NEUROLOGIC: She is nonfocal. PSYCHIATRIC: Affect is pleasant. Labs Lab Laboratory Tests Test 06/17/20 11:08 06/17/20 16:28 06/17/20 20:44 06/18/20 03:37 Glucose (Fingerstick) 88 mg/dL (70-99) 93 mg/dL (70-99) 93 mg/dL (70-99) White Blood Count 9.0 x10^3/uL (4.0-11.0) Red Blood Count 3.03 x10^6/uL (3.50-5.40) Hemoglobin 7.8 g/dL (12.0-15.5) Hematocrit 24.4 % (36.0-47.0) Mean Corpuscular Volume 81 fL (79-100) Mean Corpuscular Hemoglobin 26 pg (25-35) Mean Corpuscular Hemoglobin Concent 32 g/dL (31-37) Red Cell Distribution Width 29.9 % (11.5-14.5) Platelet Count 579 x10^3/uL (140-400) Test 06/18/20 03:57 06/18/20 07:42 Heparin Anti-Xa Act, Unfractionated 0.67 IU/mL (0.30-0.70) Glucose (Fingerstick) 107 mg/dL (70-99) Objective Assessment Throat pain with swallowing and sticking of food - better Leukocytosis - better MARIANELA s/p IV contrast Thrombocytosis - better S/p open SMA thrombectomy/REX 06/01 History of severe mesenteric artery occlusive disease who underwent a supraceliac aortic to the superior mesenteric artery and hepatic artery bypass in November 2019. Tobaccoism Chronic obstructive pulmonary disease. Hypertension. Hyperlipidemia. Diabetes. Plan Plan of Care po augmentin d/c AMANDA Reynolds MD Jun 18, 2020 11:03
--- NOTE | 2020-06-18 12:15 | NUR ---
Discharge Note: Patient was discharged home with self care. Patients IV's were discontinued without any complications per MICHAEL. Patient received discharge summary/instructions, follow-ups, prescriptions and educational material. Patient did not have any further questions or concerns. Patient was taken down to the main entrance via wheelchair accompanied by MICHAEL Hansen, with all personal belongings where her friend was parked to take her home.
--- NOTE | 2020-06-22 13:35 | DS ---
DATE OF DISCHARGE: 06/18/2020 PRIMARY DIAGNOSIS: Dysphagia with esophagitis, likely candidal in nature with improvement during the stay. ADDITIONAL DIAGNOSES: Dehydration due to poor p.o. intake, acute kidney injury due to the same, anemia stable with hemoconcentration on admission with hemoglobin drifting down with hydration back in the upper 7s. leukocytosis improving during stay, leukocytosis with antibiotic coverage, steady improvement during stay, peripheral arterial disease, recent SMA bypass for mesenteric ischemia. CHIEF COMPLAINT AND HISTORY OF PRESENT ILLNESS: This 69-year-old white female admitted through the Emergency Room with dehydration, inability to take p.o. due to abdominal chest pain and feeling like things sticking and acute kidney injury, dehydration from the same. SUMMARY OF STAY: The patient was admitted and hydrated, was treated with antibiotics because of leukocytosis as well as antifungals with improvement in her symptomatology where she was swallowing good. GI deferred on an EGD at this point in time with the improvement, we will see how she does as an outpatient. ID transitioned eventually p.o. Augmentin with negative cultures throughout the stay. Cardiology did not have any recommendations for any further treatment from that standpoint. Vascular Surgery, thought she was doing well after the bypass. She was felt ready for discharge on the and this was accomplished. DISPOSITION: The patient is discharged to home, ADA diet. ACTIVITY: As tolerated, office in 1 week. DISCHARGE MEDICATIONS: Listed on the med rec and have been addressed. ANABEL MARTÍNEZ MD DR: IZA/heriberto JOB#: [id number] / [id number]
== END 2020-06-18 12:15 | disposition home or self-care (01) | DRG 684 ==
LOC: ER 20:35 → 4 NORTH 06-14 02:04 → OBSVTOIN 06-14 16:51 → 5 NORTH 06-14 19:12
PROVIDERS: ADMIT Family Medicine; ATTEND Family Medicine
DX: N17.9 Acute kidney failure, unspecified (principal); K57.90 Diverticulosis of intestine, part unspecified, without perforation or abscess without bleeding; D47.3 Essential (hemorrhagic) thrombocythemia; E11.51 Type 2 diabetes mellitus with diabetic peripheral angiopathy without gangrene; E78.00 Pure hypercholesterolemia, unspecified; E78.5 Hyperlipidemia, unspecified; F17.210 Nicotine dependence, cigarettes, uncomplicated; I10 Essential (primary) hypertension; I25.10 Atherosclerotic heart disease of native coronary artery without angina pectoris; J43.9 Emphysema, unspecified; K64.9 Unspecified hemorrhoids; R13.10 Dysphagia, unspecified; Z79.01 Long term (current) use of anticoagulants; Z82.49 Family history of ischemic heart disease and other diseases of the circulatory system; Z86.73 Personal history of transient ischemic attack (TIA), and cerebral infarction without residual deficits; Z87.11 Personal history of peptic ulcer disease; Z87.440 Personal history of urinary (tract) infections; Z96.653 Presence of artificial knee joint, bilateral; F32.9 Major depressive disorder, single episode, unspecified; F41.9 Anxiety disorder, unspecified; G62.9 Polyneuropathy, unspecified; K21.9 Gastro-esophageal reflux disease without esophagitis; M19.90 Unspecified osteoarthritis, unspecified site; Z60.2 Problems related to living alone
CPT/HCPCS: 36415; 74022; 74177; 80053; 80061; 82962; 83605; 83690; 84484; 85007; 85025; 85027; 85520; 85610; 93005; 96361; 96374; 96375; 99285; G0378; G0379; J0878; J1644; J2248; J2270; J2405; J2543; J7030; J7060; Q9966; Q9967

== ENCOUNTER 2020-07-05 10:49 | Inpatient (IN) | payer MEDICARE, MEDICAID ==
[2020-07-05] VITALS (9 sets, daily range): BP systolic 119–136; BP diastolic 51–65
[~2020-07-05] VITALS: Ht 172.7 cm; Wt 72.7 kg
[~2020-07-05 10:49] MED LIST changes: +NYST100054 SWSW
[2020-07-05 11:51] LABS: BASO % 0 % (0-3); EOS % 0 % (0-3); LYMPH % 7 % (24-48); MEAN CORPUSCULAR HEMOGLOBIN 25 pg (25-35); MEAN CORPUSCULAR HGB CONC 30 g/dL (31-37); MEAN CORPUSCULAR VOLUME 85 fL (79-100); MONO # 1.2 x10^3/uL (0.0-1.1); MONO % 10 % (0-9); NEUT # 10.8 x10^3/uL (1.8-7.7); NEUT % 83 % (31-73); PLATELET COUNT 609 x10^3/uL (140-400); RED BLOOD COUNT 2.31 x10^6/uL (3.50-5.40); RED CELL DISTRIBUTION WIDTH 25.2 % (11.5-14.5)
[2020-07-05] MEDS ORDERED: IV NORMAL SALINE 1000ML BAG 1,000 ML IV ONE (12:00)
--- NOTE | 2020-07-05 12:06 | PHYS DOC ---
Past Medical History Past Medical History: Arthritis, Asthma, COPD, Diabetes-Type II, GERD, High Cholesterol, Hypertension, TIA, Other Additional Past Medical Histor: CATARACTS, MACULAR DEGENERATION, NEUROPATHY, EMPHYSEMA Past Surgical History: Other Additional Past Surgical Histo: STINT TO LEFT HIP, PARTIAL THYROIDECTOMY, L INGUINAL HERNIA Smoking Status: Current Every Day Smoker Alcohol Use: None General Adult EDM: Chief Complaint: MECHANICAL FALL HPI: HPI: Patient is a 69 year old female who presents to the emergency department via EM S. She reports that she became lightheaded and fell last night at approximately 9:00. She denies any loss of consciousness or hitting her head. She denies any nausea, or vomiting since the fall. She currently complains of left knee pain and swelling. She reports that she was admitted to this hospital recently for anemia and a bowel obstruction. She denies any abdominal pain, shortness of breath, chest pain, palpitations, fever, cough, dysuria, hematuria, or incontinence. The patient reports that she has been having frequent spells of being lightheaded since she was discharged home. She currently rates her pain a 5 out of 10 on the pain scale at rest, the pain in her knee increases to 10 out of 10 with palpation or movement. She denies any radiation of the pain and she refuses pain medication at this time. Review of Systems: Review of Systems: Constitutional: Denies fever or chills. [] Eyes: Denies vision changes HENT: Denies nasal congestion or sore throat. [] Respiratory: Denies cough or shortness of breath. [] Cardiovascular: Denies chest pain, palpitations, or edema. [] GI: Denies abdominal pain, nausea, vomiting, bloody stools or diarrhea. [] : Denies dysuria. [] Musculoskeletal: Denies back pain; see HPI Integument: Denies rash. [] Neurologic: Denies headache; see HPI Psychiatric: Denies depression or anxiety. [] Heart Score: Risk Factors: Risk Factors: DM, Current or recent (<one month) smoker, HTN, HLP, family history of CAD, obesity. Risk Scores: Score 0 - 3: 2.5% MACE over next 6 weeks - Discharge Home Score 4 - 6: 20.3% MACE over next 6 weeks - Admit for Clinical Observation Score 7 - 10: 72.7% MACE over next 6 weeks - Early Invasive Strategies Allergies: Allergies: Allergies Coded Allergies Type Severity Reaction Last Updated Verified shrimp Allergy Intermediate Rash 12/12/19 Yes Physical Exam: PE: Constitutional: Well developed, well nourished, no acute distress, non-toxic appearance. [] HENT: Normocephalic, atraumatic, bilateral external ears normal, oropharynx dry, nose normal. [] Eyes: PERRLA, EOMI, conjunctiva normal, no discharge. [] Neck: Normal range of motion, no stridor. [] Cardiovascular:Heart rate regular tachycardic rhythm, no murmur [] Lungs & Thorax: Bilateral breath sounds clear to auscultation, respirations even and unlabored, no retractions, no respiratory distress [] Abdomen: soft, no tenderness Skin: Warm, dry, no erythema, no rash, flaky skin noted [] Back: No tenderness Extremities: Lower left extremity: Tenderness to palpation of distal femur and left anterior knee, no crepitus, no obvious deformity, 2+ edema to the affected area, no cyanosis, ROM limited due to pain Neurologic: Alert and oriented X 3, no focal deficits noted. [] Psychologic: Affect normal, judgement normal, mood normal. [] Current Patient Data: Vital Signs: Vital Signs Date Time Temp Pulse Resp B/P (MAP) Pulse Ox O2 Delivery O2 Flow Rate FiO2 07/05/20 10:49 98.3 116 14 131/60 (83) 100 Room Air 98.3 EKG: EK-sinus tachycardia, no STEMI, rate of 114, read by Dr. Leblanc [] Radiology/Procedures: Radiology/Procedures: PROCEDURE: CHEST AP ONLY EXAM: Chest, single view. HISTORY: Chest pain. COMPARISON: 06/13/2020. FINDINGS: A frontal view of the chest is obtained. There are suspected chronic interstitial changes. There is no consolidation, pleural effusion or pneumothorax. There is a stable cardiac silhouette. IMPRESSION: No acute pulmonary finding.[] PROCEDURE: KNEE LEFT 3V KNEE LEFT 3V, LEFT FEMUR XRAY History: Reason: fall. left knee pain / Spl. Instructions: / History: Technique: 3 views left knee and 2 views left femur Comparison: None. Findings: Normal alignment of the hip and femur. No fracture. Left total knee arthroplasty with longstem femoral component. Vascular calcifications. No significant knee joint effusion. Vascular stent projecting over the proximal tibia. Impression: 1. No acute osseous abnormality. 2. Left total knee arthroplasty. PROCEDURE: LEFT FEMUR XRAY KNEE LEFT 3V, LEFT FEMUR XRAY History: Reason: fall. left knee pain / Spl. Instructions: / History: Technique: 3 views left knee and 2 views left femur Comparison: None. Findings: Normal alignment of the hip and femur. No fracture. Left total knee arthroplasty with longstem femoral component. Vascular calcifications. No significant knee joint effusion. Vascular stent projecting over the proximal tibia. Impression: 1. No acute osseous abnormality. 2. Left total knee arthroplasty. Course & Med Decision Making: Course & Med Decision Making Pertinent Labs and Imaging studies reviewed. (See chart for details) [id number] with Dr. Martínez who is the admitting physician, and care was assumed following discussion of patient. Will admit pt for anemia and fall. Order 2 u PRBc, CBC q6 hours and GI consult. Patient's vital signs stable. Patient remains afebrile, appears nontoxic, respirations even and unlabored. Patient will be admitted to the med/tele floor. Patient's case and plan of care also discussed with Dr. Leblanc [] Lisa Disclaimer: Lisa Disclaimer: This electronic medical record was generated, in whole or in part, using a voice recognition dictation system. Departure Departure Impression: Primary Impression: Anemia Qualified Codes: D64.9 - Anemia, unspecified Additional Impression: Fall Qualified Codes: W19.XXXA - Unspecified fall, initial encounter Disposition: ADMITTED INPATIENT Admitting Physician: Anabel Martínez Condition: STABLE Referrals: ANABEL MARTÍNEZ MD (PCP) Justicifation of Admission Dx: Justifications for Admission: Justification of Admission Dx: Yes Sepsis: Infection Comments: anemia Hgb <6.0 LELAND HUITRON SKULL CHOPPER Jul 05, 2020 12:06
[2020-07-05 12:08] LABS: HEMATOCRIT 19.7 % (36.0-47.0); HEMOGLOBIN 5.9 g/dL (12.0-15.5)
[2020-07-05 12:10] LABS: PROTHROMBIN TIME PATIENT 13.7 SEC (11.7-14.0)
[2020-07-05 12:14] LABS: POTASSIUM 3.5 mmol/L (3.5-5.1)
[2020-07-05 12:18] LABS: ALBUMIN 2.9 g/dL (3.4-5.0); ALBUMIN/GLOBULIN RATIO 0.9 (1.0-1.7); MAGNESIUM 1.8 mg/dL (1.8-2.4); TOTAL BILIRUBIN 0.5 mg/dL (0.2-1.0); TOTAL PROTEIN 6.3 g/dL (6.4-8.2)
[2020-07-05 12:28] LABS: CREATINE KINASE 14 U/L (26-192)
[2020-07-05] MEDS ORDERED: diphenhydrAMINE ORAL ELIXIR 12.5 MG/5 ML ML PO PRN (12:30)
[2020-07-05] MEDS ORDERED: diphenhydrAMINE HCL 25 MG CAPSULE PO PRN (12:30)
[2020-07-05] MEDS ORDERED: ACETAMINOPHEN 325 MG TABLET. PO PRN (12:30)
--- NOTE | 2020-07-05 12:39 | RAD ---
EXAM: Chest, single view. HISTORY: Chest pain. COMPARISON: 06/13/2020. FINDINGS: A frontal view of the chest is obtained. There are suspected chronic interstitial changes. There is no consolidation, pleural effusion or pneumothorax. There is a stable cardiac silhouette. IMPRESSION: No acute pulmonary finding. Electronically signed by: Martha Vargas MD (07/05/2020 12:36 PM) [id number]
--- NOTE | 2020-07-05 12:42 | RAD ---
KNEE LEFT 3V, LEFT FEMUR XRAY History: Reason: fall. left knee pain / Spl. Instructions: / History: Technique: 3 views left knee and 2 views left femur Comparison: None. Findings: Normal alignment of the hip and femur. No fracture. Left total knee arthroplasty with longstem femoral component. Vascular calcifications. No significant knee joint effusion. Vascular stent projecting over the proximal tibia. Impression: 1. No acute osseous abnormality. 2. Left total knee arthroplasty. Electronically signed by: Albert Hammer DO (07/05/2020 12:39 PM) [id number]
[2020-07-05 12:51] LABS: ANISOCYTOSIS MARKED; HYPOCHROMIA MOD; PLT ESTIMATE INCREASED (ADEQUATE); POLYCHROMASIA MOD
[2020-07-05 12:52] LABS: SPHEROCYTES FEW
[2020-07-05 12:53] LABS: STOMATOCYTES FEW
[2020-07-05] MEDS ORDERED: ONDANSETRON PF 4 MG/2 ML VIAL. IVP ONE (13:15)
[2020-07-05] MEDS ORDERED: fentaNYL PF VIAL 100 MCG/2 ML VIAL IV ONE (13:15)
--- NOTE | 2020-07-05 15:02 | PDOC2 ---
GI CONSULT Date of Service: DATE: 07/05/20 TIME: 14:50 Reason For Consult: anemia, fall, possible GI bleed HPI: HPI: 69 y/o female who we've seen several times over the past couple months. Feeling weak at home, dizzy, short of breath. Came to ER today after fall - remembers standing up, and then remembers opening her eyes and looking at her dog Viry from the floor. Hurt her left knee. Noted again w/ anemia. Plans for transfusion. She denies GI bleeding including hematemesis, hematochezia, and melena. She denies reflux/heartburn, dysphagia, odynophagia, n/v, abd pain, diarrhea, constipation, change in appetite, or weight loss. Has chronic ELIDA on iron PO BID (iron profile last checked 05/2020, B12 normal then). H/o GERD controlled w/ Protonix QD. EGD in 01/2019: gastritis. Colonoscopy 02/2019: ascending colon sessile polyp extending over entire fold (TA), sigmoid diverticulosis, internal hemorrhoids. S/p lap right colectomy in 03/2019 - path c/w sessile TVA, no HGD or malignancy. No GB, liver, pancreas, or PUD history. Recent SMA thrombectomy on Xarelto and ASA. Supposed to see pier runner in clinic this week - cancelled/rescheduled because she was afraid to drive because she was too weak. Recent cardiology, pulmonology, vascular, and ID evals as well. PMH: PMH: CAD, HTN, HLD, PVD, DM, hypothyroidism, depression, OA, gout, seizure (related to HTN), UTI, thrombocytosis SMA stent and then bypass and then thrombectomy, LIH repair, LE stents, 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, bilateral knee replacements, cataract removal, right colon rese ction (for sessile tubulovillous adenoma) FH: Family History: No pertinent hx Social History: Smoke: <1 pack per day ALCOHOL: none Drugs: None ROS: GEN: Denies fevers, chills, sweats HEENT: Denies blurred vision, sore throat CV: Denies chest pain RESP: +shortness of air GI: Per HPI : Denies hematuria, dysuria ENDO: Denies weight changes NEURO: +dizziness MSK: +weakness +left knee pain SKIN: Denies jaundice, pruritus Vitals: Vitals: Vital Signs Date Time Temp Pulse Resp B/P (MAP) Pulse Ox O2 Delivery O2 Flow Rate FiO2 07/05/20 14:31 23 100 Room Air 07/05/20 10:49 98.3 116 131/60 (83) 98.3 Labs: Labs: Laboratory Tests Test 07/05/20 11:20 White Blood Count 13.0 x10^3/uL (4.0-11.0) Red Blood Count 2.31 x10^6/uL (3.50-5.40) Hemoglobin 5.9 g/dL (12.0-15.5) Hematocrit 19.7 % (36.0-47.0) Mean Corpuscular Volume 85 fL (79-100) Mean Corpuscular Hemoglobin 25 pg (25-35) Mean Corpuscular Hemoglobin Concent 30 g/dL (31-37) Red Cell Distribution Width 25.2 % (11.5-14.5) Platelet Count 609 x10^3/uL (140-400) Neutrophils (%) (Auto) 83 % (31-73) Lymphocytes (%) (Auto) 7 % (24-48) Monocytes (%) (Auto) 10 % (0-9) Eosinophils (%) (Auto) 0 % (0-3) Basophils (%) (Auto) 0 % (0-3) Neutrophils # (Auto) 10.8 x10^3/uL (1.8-7.7) Lymphocytes # (Auto) 1.0 x10^3/uL (1.0-4.8) Monocytes # (Auto) 1.2 x10^3/uL (0.0-1.1) Eosinophils # (Auto) 0.0 x10^3/uL (0.0-0.7) Basophils # (Auto) 0.0 x10^3/uL (0.0-0.2) Platelet Estimate Increased (ADEQUATE) Polychromasia Mod Hypochromasia Mod Basophilic Stippling Present Anisocytosis Marked Spherocytes Few Stomatocytes Few Prothrombin Time 13.7 SEC (11.7-14.0) Prothromb Time International Ratio 1.1 (0.8-1.1) Activated Partial Thromboplast Time 26 SEC (24-38) Sodium Level 136 mmol/L (136-145) Potassium Level 3.5 mmol/L (3.5-5.1) Chloride Level 97 mmol/L (98-107) Carbon Dioxide Level 29 mmol/L (21-32) Anion Gap 10 (6-14) Blood Urea Nitrogen 27 mg/dL (7-20) Creatinine 1.0 mg/dL (0.6-1.0) Estimated GFR (Cockcroft-Gault) 55.0 BUN/Creatinine Ratio 27 (6-20) Glucose Level 142 mg/dL (70-99) Calcium Level 9.0 mg/dL (8.5-10.1) Magnesium Level 1.8 mg/dL (1.8-2.4) Total Bilirubin 0.5 mg/dL (0.2-1.0) Aspartate Amino Transf (AST/SGOT) 13 U/L (15-37) Alanine Aminotransferase (ALT/SGPT) 16 U/L (14-59) Alkaline Phosphatase 83 U/L (46-116) Creatine Kinase 14 U/L (26-192) Creatine Kinase MB (Mass) < 0.5 ng/mL (0.0-3.6) Creatine Kinase MB Relative Index % (0-4) Troponin I Quantitative < 0.017 ng/mL (0.000-0.055) ZH-Eqa-D-Type Natriuretic Peptide 3341 pg/mL (0-124) Total Protein 6.3 g/dL (6.4-8.2) Albumin 2.9 g/dL (3.4-5.0) Albumin/Globulin Ratio 0.9 (1.0-1.7) Lipase 80 U/L (73-393) Allergies: Coded Allergies: shrimp (Verified Allergy, Intermediate, Rash, 12/12/19) Medications: Current Medications Medications (Trade) Dose Ordered Sig/Kira Route PRN Reason Start Time Stop Time Status Last Admin Dose Admin Sodium Chloride 1,000 ml @ 1,000 mls/hr 1X ONCE IV 07/05/20 12:00 07/05/20 12:59 DC 07/05/20 13:20 Fentanyl Citrate (Fentanyl 2ml Vial) 50 mcg 1X ONCE IV 07/05/20 13:15 07/05/20 13:16 DC 07/05/20 14:31 Imaging: Imaging: Left Knee and Femur X-Ray Impression: 1. No acute osseous abnormality. 2. Left total knee arthroplasty. CXR IMPRESSION: No acute pulmonary finding. PE: GEN: NAD HEENT: Atraumatic, PERRL LUNGS: diminished HEART: tachycardic ABD: NABS, S/ND/NT EXTREMITY: No edema SKIN: pale NEURO/PSYCH: A & O 3 A/P: A/P: Fall/syncope Chronic ELIDA - on PO iron BID Thrombocytosis - has seen heme/onc here in the past, unable to follow-up as outpt GERD - controlled w/ PPI CRC screen - UTD Diverticulosis, hemorrhoids H/o TVA s/p lap right colectomy in 03/2019 No GB, liver, pancreas, or PUD history. Recent SMA thrombectomy - on Xarelto and ASA +tobacco -- Agree w/ transfusion. Continue PPI and iron. Noted elevated BUN - has been elevated similarly in the past. Will review any inpatient GI plans w/ Dr. Jean. ELDA HUTTON Jul 05, 2020 15:02
[2020-07-05] MEDS ORDERED: POLYETHYLENE GLYCOL 3350 17 GM PACKET. PO PRN (15:15)
[2020-07-05] MEDS: FERROUS SULFATE 325 MG TABLET. PO SCH (18:07)
[2020-07-05] MEDS ORDERED: ATORVASTATIN CALCIUM 10 MG TABLET. PO SCH (21:00)
[2020-07-06 02:40] VITALS: BP 107/47
[2020-07-06 07:03] VITALS: BP 97/46
--- NOTE | 2020-07-06 07:03 | EKG ---
[facility] [address] [place] [address] Test Date: 2020-07-05 Test Time: 11:05:24 Pat Name: CHOCO YEH Department: Room: Gender: F [employer]: : 1950 Requested By: LELAND HUITRON Order Number: [id number] Reading MD: Measurements Intervals [place] Rate: 114 P: 52 DE: 134 QRS: 62 QRSD: 88 T: 62 QT: 340 QTc: 472 Interpretive Statements SINUS TACHYCARDIA NO SPECIFIC ECG ABNORMALITIES RI6.02 No previous ECG available for comparison
[2020-07-06 07:15] LABS: BASO # 0.1 x10^3/uL (0.0-0.2); BASO % 1 % (0-3); EOS # 0.1 x10^3/uL (0.0-0.7); EOS % 1 % (0-3); HEMATOCRIT 27.9 % (36.0-47.0); HEMOGLOBIN 8.8 g/dL (12.0-15.5); LYMPH # 2.7 x10^3/uL (1.0-4.8); LYMPH % 28 % (24-48); MEAN CORPUSCULAR HEMOGLOBIN 28 pg (25-35); MEAN CORPUSCULAR HGB CONC 32 g/dL (31-37); MEAN CORPUSCULAR VOLUME 89 fL (79-100); MONO # 1.2 x10^3/uL (0.0-1.1); MONO % 13 % (0-9); NEUT # 5.6 x10^3/uL (1.8-7.7); NEUT % 58 % (31-73); PLATELET COUNT 486 x10^3/uL (140-400); RED BLOOD COUNT 3.12 x10^6/uL (3.50-5.40); RED CELL DISTRIBUTION WIDTH 19.1 % (11.5-14.5); WHITE BLOOD COUNT 9.7 x10^3/uL (4.0-11.0)
[2020-07-06] MEDS ORDERED: PANTOPRAZOLE 40 MG TABLET.DR. PO SCH (07:30)
[2020-07-06] MEDS: FERROUS SULFATE 325 MG TABLET. PO SCH ×2 (08:44→17:00)
[2020-07-06] MEDS ORDERED: ALLOPURINOL 100 MG TABLET. PO SCH (09:00)
[2020-07-06] MEDS ORDERED: DULoxetine HCL 30 MG CAPSULE.DR PO SCH (09:00)
[2020-07-06 10:24] VITALS: BP 156/71
[2020-07-06] MEDS ORDERED: IRON SUCROSE COMPLEX 500 MG in IV NORMAL SALINE 250ML 250 ML IV ONE (13:00)
--- NOTE | 2020-07-06 13:10 | HP ---
ADMIT DATE: CHIEF COMPLAINT AND HISTORY OF PRESENT ILLNESS: This 69-year-old white female is well known to me from followup in the office. The patient has been feeling weak for several days when she gets up and has had no energy or stamina to do anything. She states she feels good if she is lying or sitting. She got up to do something on the day of admission and fell. She thinks there might have been transient loss of consciousness with it. She was brought by ambulance to the hospital, found to have a hemoglobin of 5.9 and admitted for the same. The patient has a history of cryptogenic GI bleeding with extensive GI workup including upper and lower endoscopies and small bowel capsule. The patient denies any blood in the stool, but states that her stools are always black with the iron therapy that she takes on a daily basis. PAST MEDICAL HISTORY: Remarkable for COPD, diabetes, hyperlipidemia, hypertension, prior TIA. She has had multiple GI bleeds. She has mesenteric ischemia for which she has had stenting and bypass. PAST SURGICAL HISTORY: Remarkable for cataract extraction, stenting for peripheral arterial disease, partial 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, left inguinal hernia repair, mesenteric bypass surgery. MEDICATIONS: Brought with the patient, listed on the computer have been addressed. ALLERGIES: SHE IS ALLERGIC TO SHRIMP. SOCIAL HISTORY: She is a current everyday smoker, does not drink alcohol or use drugs. She is single, lives at home alone. FAMILY HISTORY: Noncontributory. REVIEW OF SYSTEMS: As mentioned above as well as having some left knee pain since the fall, which is making her have to limp around the room, but has been able to get back and forth to the bathroom. PHYSICAL EXAMINATION: GENERAL: She is a well-developed, well-nourished white female, in no acute distress in bed. VITAL SIGNS: Stable. She is afebrile. HEAD, EYES, EARS, NOSE AND THROAT: Unremarkable. NECK: Supple without bruit or thyromegaly. CHEST: Clear to auscultation and percussion. HEART: Regular rate and rhythm without S3, S4 or murmur. ABDOMEN: Soft, nontender, without hepatosplenomegaly or masses. EXTREMITIES: Without cyanosis, clubbing, or edema. There is some mild swelling over the left knee without any significant oozing. She does have full range of motion. NEUROLOGIC: She is intact. X-rays done since admission include x-rays of the left femur showing a prior left knee arthroplasty, but no evidence of any fracture. She also has a chest x-ray done on admission, which shows no acute pulmonary findings. Laboratory again hemoglobin was 5.9 on admission, she received 2 units of blood overnight. Hemoglobin is 8.8 and she feels significantly better. Chemistry panel is remarkable for a BUN of 27, albumin of 2.9. BNP was elevated at 3341 of uncertain etiology and troponin was negative. INR is within normal limits. IMPRESSION: 1. Gastrointestinal bleed with weakness and fall, cryptogenic in nature. 2. Fall with left knee contusion. 3. Inability to notice blood in the stool due to iron therapy and melena from that on a regular basis. 4. Other problems listed above. PLAN: The patient has been admitted. I am going to increase ____ so that we can stop the iron therapy on discharge, which could be as soon as later today if the iron is able to be infused and hemoglobin remained stable as I think she is symptomatically good for that at this point in time and see no reason to go back to GI evaluation for GI bleeding as it has been done, plus discharge medications will not include the iron and I instructed her exhaustively to report at this point further any black stools immediately or change in color of stools, so that we can ____ prior hospitalization or an episode like this. ANABEL MARTÍNEZ MD DR: IZA/heriberto JOB#: [id number] / [id number]
[2020-07-06 14:26] VITALS: BP 105/52
[2020-07-06 16:42] LABS: HEMATOCRIT 26.6 % (36.0-47.0); HEMOGLOBIN 8.4 g/dL (12.0-15.5)
--- NOTE | 2020-07-06 18:06 | NUR ---
VERIFIED WITH DR MARTÍNEZ OF PATIENT GOING HOME ON XARELTO AND ASPIRIN. DR MARTÍNEZ VERIFIED FOR PATIENT TO GO HOME ON BLOOD THINNERS AND TO STOP IRON SUPPLEMENT.
--- NOTE | 2020-07-06 18:29 | NUR ---
DISCHARGE INSTRUCTIONS DISCUSSED WITH PATIENT. PATIENT INFORMED TO STOP TAKING IRON AND TO FOLLOW UP WITH DR MARTÍNEZ THIS WEEK FOR LAB DRAWS AND DR SCHILLING FOR EGD/COLONOSCOPY. PATIENTS IVS REMOVED AND TELE MONITOR OFF. PATIENT STABLE AT TIME OF DISCHARGE. PATIENT HAS NO QUESTIONS AT TIME OF DISCHARGE. PATIENT ESCORTED TO [facility]RIENDS PERSONAL VEHICLE PER WHEELCHAIR BY BODY MASKER.
--- NOTE | 2020-07-07 11:57 | DS ---
DATE OF DISCHARGE: 07/06/2020 PRIMARY DIAGNOSIS: Symptomatic anemia. ADDITIONAL DIAGNOSES: Cryptogenic gastrointestinal bleeding, fall, diabetes mellitus, mesenteric ischemia with recent surgery, iron deficiency. CHIEF COMPLAINT AND HISTORY OF PRESENT ILLNESS: This 69-year-old white female admitted through the Emergency Room after a fall after becoming lightheaded. She denied any loss of consciousness with the same. She admitted that she had been not feeling well for the last several days that when she would get up she had no energy or stamina to do anything, but felt good if she was lying or sitting. She, on second thought, thought there might have been some transient loss of consciousness with the fall. She was brought by the ambulance to the hospital, found to have hemoglobin of 5.9 and admitted for the same. SUMMARY OF STAY: The patient was admitted, transfused 2 units of packed red blood cells. Hemoglobin increased up to the mid 8s and was 8.4 at discharge. Because of the ongoing bleeding and her being unsure by looking at stools as they are always black from the iron, it was elected to give her some IV iron and stop the iron on discharge, which was accomplished. It was felt she could be dismissed with close outpatient followup and this was accomplished. Questions regarding maintenance of anticoagulation following discharge were considered and was elected to continue as she has had multiple problems with the mesenteric ischemia, clotting and it was felt to be a decreased risk as opposed to further bleeding given the fact that her bleeding has never been formally elucidated anyway with multiple investigations including upper and lower endoscopies and small bowel consult. DISPOSITION: The patient is discharged to home. DIET: ADA diet. ACTIVITY: As tolerated, office in 1 week. DISCHARGE MEDICATIONS: Listed on the med rec and have been addressed, which are basically her regular home medicines and she is stopping the iron. ANABEL MARTÍNEZ MD DR: IZA/heriberto JOB#: [id number] / [id number]
== END 2020-07-06 18:25 | disposition home or self-care (01) | DRG 378 ==
LOC: ER 10:49 → 2 NORTH 12:45
PROVIDERS: ADMIT Family Medicine; ATTEND Family Medicine
PROC: 30233N1 Transfusion of Nonautologous Red Blood Cells into Peripheral Vein, Percutaneous Approach (ICD-10-PCS; principal; 2020-07-05)
DX: K92.2 Gastrointestinal hemorrhage, unspecified (principal); R65.10 Systemic inflammatory response syndrome (SIRS) of non-infectious origin without acute organ dysfunction; D50.0 Iron deficiency anemia secondary to blood loss (chronic); E11.51 Type 2 diabetes mellitus with diabetic peripheral angiopathy without gangrene; E78.00 Pure hypercholesterolemia, unspecified; E78.5 Hyperlipidemia, unspecified; E89.0 Postprocedural hypothyroidism; F17.210 Nicotine dependence, cigarettes, uncomplicated; F32.9 Major depressive disorder, single episode, unspecified; I10 Essential (primary) hypertension; I25.10 Atherosclerotic heart disease of native coronary artery without angina pectoris; J43.9 Emphysema, unspecified; K57.30 Diverticulosis of large intestine without perforation or abscess without bleeding; M10.9 Gout, unspecified; Z86.73 Personal history of transient ischemic attack (TIA), and cerebral infarction without residual deficits; Z96.653 Presence of artificial knee joint, bilateral; K21.9 Gastro-esophageal reflux disease without esophagitis; M19.90 Unspecified osteoarthritis, unspecified site; Z88.8 Allergy status to other drugs, medicaments and biological substances; S80.02XA Contusion of left knee, initial encounter; W18.39XA Other fall on same level, initial encounter; Y93.89 Activity, other specified; Y92.89 Other specified places as the place of occurrence of the external cause; Y99.8 Other external cause status
CPT/HCPCS: 36415; 71045; 73552; 73562; 80053; 82553; 83690; 83735; 83880; 84484; 85014; 85018; 85025; 85610; 85730; 86850; 86900; 86901; 86920; 93005; 96361; 96374; 99285; J1756; J3010; J7030; J7050; P9016; G0378

== ENCOUNTER 2020-09-25 13:53 | Observation (INO) | payer MEDICARE, MEDICAID ==
[~2020-09-25] VITALS: Ht 172.7 cm; Wt 65.0 kg
[2020-09-25] VITALS (9 sets, daily range): BP systolic 98–113; BP diastolic 34–73
[~2020-09-25 13:53] MED LIST changes: +DESM0.2T5 PO
[2020-09-25 17:20] LABS: BASO # 0.1 x10^3/uL (0.0-0.2); BASO % 1 % (0-3); EOS # 0.1 x10^3/uL (0.0-0.7); EOS % 1 % (0-3); LYMPH # 1.5 x10^3/uL (1.0-4.8); LYMPH % 18 % (24-48); MEAN CORPUSCULAR HEMOGLOBIN 27 pg (25-35); MEAN CORPUSCULAR HGB CONC 32 g/dL (31-37); MEAN CORPUSCULAR VOLUME 85 fL (79-100); MONO # 0.7 x10^3/uL (0.0-1.1); MONO % 8 % (0-9); NEUT # 5.9 x10^3/uL (1.8-7.7); NEUT % 71 % (31-73); PLATELET COUNT 468 x10^3/uL (140-400); RED BLOOD COUNT 1.75 x10^6/uL (3.50-5.40); RED CELL DISTRIBUTION WIDTH 16.7 % (11.5-14.5); WHITE BLOOD COUNT 8.3 x10^3/uL (4.0-11.0)
[2020-09-25 17:26] LABS: HEMATOCRIT 14.9 % (36.0-47.0); HEMOGLOBIN 4.7 g/dL (12.0-15.5)
--- NOTE | 2020-09-25 18:24 | HP ---
ADMIT DATE: 09/25/2020 CHIEF COMPLAINT AND HISTORY OF PRESENT ILLNESS: This 70-year-old white female well known to me in followup in the office. The patient was admitted in the office with symptoms of recurrent GI bleed with melanotic stools, weakness, lightheadedness. PAST MEDICAL HISTORY: Remarkable for recurrent GI bleeding, colonic polyps, small bowel AV malformations COPD, pneumonia, mesenteric ischemia, diabetes, and hyperlipidemia. MEDICATIONS: Brought with the patient listed on the computer and have been addressed. ALLERGIES: SHE IS ALLERGIC TO SHRIMP. SOCIAL HISTORY: She is a current everyday smoker, does not abuse alcohol or drugs. FAMILY HISTORY: Noncontributory. REVIEW OF SYSTEMS: As mentioned above. PHYSICAL EXAMINATION: GENERAL: She is a well-developed, well-nourished white female, appears pale and weak. VITAL SIGNS: Stable. She is afebrile. HEAD, EYES, EARS, NOSE AND THROAT: Remarkable for pallor of the conjunctivae. NECK: Supple, without adenopathy or thyromegaly. CHEST: Reveals somewhat decreased breath sounds, but clear. HEART: Regular rate and rhythm without S3, S4 or murmur. ABDOMEN: Soft, nontender, without hepatosplenomegaly or masses. EXTREMITIES: Without cyanosis, clubbing or edema. NEUROLOGIC: She is intact. LABORATORY DATA: Initial hemoglobin was 4.7. IMPRESSION: 1. Recurrent gastrointestinal bleed with symptomatic anemia. 2. Other problems listed above. PLAN: The patient has been admitted. IV access has been obtained. She will be monitored with frequent vital signs as discussed with nursing, but she has been typed and crossed for 2 units of packed red blood cells. These will be infused this evening. A CBC will be checked in the morning and the patient will be monitored, managed and treated appropriately. ANABEL MARTÍNEZ MD DR: IZA/heriberto JOB#: [id number] / [id number]
[2020-09-25] MEDS ORDERED: ATORVASTATIN CALCIUM 10 MG TABLET. PO SCH (21:00)
[2020-09-25] MEDS: DESMOPRESSIN 0.1 MG TABLET. PO SCH (21:17)
[2020-09-26] VITALS (12 sets, daily range): BP systolic 91–123; BP diastolic 39–54
[2020-09-26 03:12] LABS: HEMATOCRIT 20.7 % (36.0-47.0); HEMOGLOBIN 6.8 g/dL (12.0-15.5)
[2020-09-26] MEDS ORDERED: PANTOPRAZOLE 40 MG TABLET.DR. PO SCH (07:30)
[2020-09-26] MEDS ORDERED: POTASSIUM CHLORIDE 20 MEQ TABLET.ER. PO SCH (08:00)
[2020-09-26] MEDS ORDERED: ASPIRIN ENTERIC COATED 325 MG TABLET.DR. PO SCH (08:00)
[2020-09-26] MEDS: DESMOPRESSIN 0.1 MG TABLET. PO SCH (08:14)
[2020-09-26] MEDS ORDERED: ALLOPURINOL 100 MG TABLET. PO SCH (09:00)
[2020-09-26] MEDS ORDERED: DULoxetine HCL 30 MG CAPSULE.DR PO SCH (09:00)
[2020-09-26] MEDS ORDERED: FUROSEMIDE 40 MG TABLET. PO SCH (09:00)
[2020-09-26] MEDS ORDERED: PIOGLITAZONE 15 MG TABLET. PO SCH (09:00)
--- NOTE | 2020-09-26 09:34 | NUR ---
SW following. Discussed with RN, pt from home, room air, regular diet. Pt has had 3 bags of blood since admission. H&H labs being monitored. Pt was here recently for similar concerns. Last admission, pt discharged home with self care. Per RN, pt wanting to go home. SW will continue to follow.
[2020-09-26 10:03] LABS: BASO # 0.1 x10^3/uL (0.0-0.2); BASO % 1 % (0-3); EOS # 0.3 x10^3/uL (0.0-0.7); EOS % 4 % (0-3); HEMATOCRIT 24.9 % (36.0-47.0); HEMOGLOBIN 8.1 g/dL (12.0-15.5); LYMPH # 1.2 x10^3/uL (1.0-4.8); LYMPH % 16 % (24-48); MEAN CORPUSCULAR HEMOGLOBIN 28 pg (25-35); MEAN CORPUSCULAR HGB CONC 32 g/dL (31-37); MEAN CORPUSCULAR VOLUME 87 fL (79-100); MONO % 13 % (0-9); NEUT # 4.9 x10^3/uL (1.8-7.7); NEUT % 66 % (31-73); PLATELET COUNT 410 x10^3/uL (140-400); RED BLOOD COUNT 2.86 x10^6/uL (3.50-5.40); WHITE BLOOD COUNT 7.5 x10^3/uL (4.0-11.0)
[2020-09-26 10:24] LABS: ALBUMIN 2.3 g/dL (3.4-5.0); ALBUMIN/GLOBULIN RATIO 0.9 (1.0-1.7); CALCIUM 8.1 mg/dL (8.5-10.1); CREATININE 0.8 mg/dL (0.6-1.0); GFR 70.9; POTASSIUM 3.4 mmol/L (3.5-5.1); TOTAL BILIRUBIN 0.3 mg/dL (0.2-1.0); TOTAL PROTEIN 4.9 g/dL (6.4-8.2)
--- NOTE | 2020-09-26 12:32 | DS ---
DATE OF DISCHARGE: 09/26/2020 PRIMARY DIAGNOSIS: Gastrointestinal bleed with symptomatic anemia. 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 CHIEF COMPLAINT AND HISTORY OF PRESENT ILLNESS: This 70-year-old white female admitted with symptomatic anemia and ongoing GI bleeding with melena. This has been recurrent. SUMMARY OF STAY: The patient was admitted, hemoglobin 4.7. She was typed, crossed and transfused 2 units of packed red blood cells and came up to 6.8 ____ prior to discharge with discharge hemoglobin being noted 8.1. We are continuing to try the DDAVP to stop her bleeding. If this does not work by the first day then I am going to put her on estrogen to see if this will help. She has ongoing anticoagulation needs and Vascular Surgery adamantly ____ continues to take them. She was felt ready for discharge with her back to her baseline and this was accomplished on the day of discharge. DISPOSITION: The patient is discharged to home. DIET: ADA diet. ACTIVITY: As tolerated, office in 1 week. DISCHARGE MEDICATIONS: Listed on the med rec that have been addressed and they are her regular home medications. ANABEL MARTÍNEZ MD DR: IZA/heriberto JOB#: [id number] / [id number]
== END 2020-09-26 14:21 | disposition home or self-care (01) ==
LOC: 4 NORTH 13:53 → INTOOBSV 13:53
PROVIDERS: ADMIT Family Medicine; ATTEND Family Medicine
DX: K92.2 Gastrointestinal hemorrhage, unspecified (principal); D64.9 Anemia, unspecified; J44.9 Chronic obstructive pulmonary disease, unspecified; E11.9 Type 2 diabetes mellitus without complications; E78.5 Hyperlipidemia, unspecified; F17.200 Nicotine dependence, unspecified, uncomplicated; Z87.19 Personal history of other diseases of the digestive system
CPT/HCPCS: 36415; 36430; 80053; 82962; 85014; 85018; 85025; 86850; 86900; 86901; 86920; G0378; G0379; P9016

== ENCOUNTER 2020-10-02 14:42 | Observation (INO) | payer MEDICARE, MEDICAID ==
[~2020-10-02] VITALS: Ht 172.7 cm; Wt 78.1 kg
[2020-10-02] VITALS (8 sets, daily range): BP systolic 89–135; BP diastolic 33–57
[2020-10-02 16:27] LABS: BASO # 0.1 x10^3/uL (0.0-0.2); BASO % 2 % (0-3); EOS # 0.2 x10^3/uL (0.0-0.7); EOS % 3 % (0-3); LYMPH # 1.7 x10^3/uL (1.0-4.8); LYMPH % 20 % (24-48); MEAN CORPUSCULAR HEMOGLOBIN 28 pg (25-35); MEAN CORPUSCULAR HGB CONC 32 g/dL (31-37); MEAN CORPUSCULAR VOLUME 88 fL (79-100); MONO # 0.7 x10^3/uL (0.0-1.1); MONO % 8 % (0-9); NEUT # 5.8 x10^3/uL (1.8-7.7); NEUT % 68 % (31-73); PLATELET COUNT 499 x10^3/uL (140-400); RED CELL DISTRIBUTION WIDTH 16.3 % (11.5-14.5); WHITE BLOOD COUNT 8.6 x10^3/uL (4.0-11.0)
--- NOTE | 2020-10-02 16:32 | PHYS DOC ---
Past Medical History Past Medical History: Anemia, Arthritis, Asthma, COPD, Diabetes-Type II, GERD, GI Bleed, High Cholesterol, TIA, Other Additional Past Medical Histor: CATARACTS, MACULAR DEGENERATION, NEUROPATHY (JEFFERY PEDRAZA APRN) Past Surgical History: Knee Replacement, Other Additional Past Surgical Histo: STENT TO BLE, PARTIAL THYROID, L INGUINAL HERNIA, ABDOMINAL SX X 2, BX KNEE (JEFFERY PEDRAZA APRN) Smoking Status: Current Every Day Smoker Additional Information: 10/26 PPD Alcohol Use: None (JEFFERY PEDRAZA APRN) General Adult EDM: Chief Complaint: ABNORMAL LABS HPI: HPI: Patient is a 70 year old female who presents with increased weakness. States she has had increased weakness over the past several days, she has not had any increased SOA. states no discomfort, only weakness. Does state she gets a little out of breath when she walks. She has a history of GI bleeding related to capiillary leakage in her colon, had been seeing Dr Jean but has no interest in returning to services with him and is following up with her PCP now. She is taking Xarelto and has been for a while. She has had several recent visits for anemia due to her chronic blood loss, noting hemoglobin 16 days ago in this facility of 5.0, and in July 2020 with HgB 4.6 and 4.8. (JEFFERY PEDRAZA APRN) Review of Systems: Review of Systems: Constitutional: Denies fever or chills. Does report generalized weakness[] Eyes: Denies change in visual acuity. [] HENT: Denies nasal congestion or sore throat. [] Respiratory: Denies cough or shortness of breath while at rest. Does state some SOA while walking [] Cardiovascular: Denies chest pain or edema. [] GI: Denies abdominal pain, nausea, vomiting, or diarrhea. [States she has chr onic bloody stools, no change recently] : Denies dysuria. [] Musculoskeletal: Denies back pain or joint pain. [] Integument: Denies rash. [] Neurologic: Denies headache, focal weakness or sensory changes. [] Endocrine: Denies polyuria or polydipsia. [] Lymphatic: Denies swollen glands. [] Psychiatric: Denies depression or anxiety. [] (JEFFERY PEDRAZA APRN) Heart Score: Risk Factors: Risk Factors: DM, Current or recent (<one month) smoker, HTN, HLP, family history of CAD, obesity. Risk Scores: Score 0 - 3: 2.5% MACE over next 6 weeks - Discharge Home Score 4 - 6: 20.3% MACE over next 6 weeks - Admit for Clinical Observation Score 7 - 10: 72.7% MACE over next 6 weeks - Early Invasive Strategies (JEFFERY PEDRAZA APRN) Allergies: Allergies: Allergies Coded Allergies Type Severity Reaction Last Updated Verified shrimp Allergy Intermediate Rash 08/07/20 Yes (JEFFERY PEDRAZA APRN) Physical Exam: PE: Constitutional: Well developed, well nourished, no acute distress, non-toxic appearance. Pale [] HENT: Normocephalic, atraumatic, bilateral external ears normal, oropharynx moist, no oral exudates, nose normal. [] Eyes: PERRLA, EOMI, conjunctiva normal, no discharge. [] Neck: Normal range of motion, no tenderness, supple, no stridor. [] Cardiovascular:Heart rate regular rhythm, no murmur [] Lungs & Thorax: Bilateral breath sounds clear to auscultation [] Abdomen: Bowel sounds normal, soft, no tenderness, no masses, no pulsatile masses. [] Skin: Warm, dry, no erythema, no rash. [] Back: No tenderness, no CVA tenderness. [] Extremities: No tenderness, no cyanosis, no clubbing, ROM intact, no edema. [] Neurologic: Alert and oriented X 3, normal motor function, normal sensory function, no focal deficits noted. [] Psychologic: Affect normal, judgement normal, mood normal. [] (JEFFERY PEDRAZA APRN) Current Patient Data: Vital Signs: Vital Signs Date Time Temp Pulse Resp B/P (MAP) Pulse Ox O2 Delivery O2 Flow Rate FiO2 10/02/20 15:40 98.4 113 16 89/40 (56) 98 Room Air 98.4 (JEFFERY PEDRAZA APRN) EKG: EKG: []Normal sinus rhythm without ST changes per Dr Freeman. (JEFFERY PEDRAZA APRN) Radiology/Procedures: Radiology/Procedures: []CHEST AP ONLY 10/02/2020 4:13 PM INDICATION: Fatigue COMPARISON: 08/21/2020 TECHNIQUE: Portable frontal view of the chest is provided. FINDINGS: The cardiomediastinal silhouette is borderline in size, stable. Mild similar pulmonary vascular congestion. No pleural effusions or pneumothorax. No suspicious osseous abnormality. IMPRESSION: No significant interval change compared to the prior examination with findings suggestive of mild pulmonary vascular congestion. Electronically signed by: Elizabeth Verma MD (10/02/2020 5:09 PM) [facility] DICTATED and SIGNED BY: ELIZABETH VERMA MD DATE: 10/02/20 [id number] 0 (JEFFERY PEDRAZA APRN) Course & Med Decision Making: Course & Med Decision Making Pertinent Labs and Imaging studies reviewed. (See chart for details) Given patient long standing history of anemia from GI Bleeding, and low hemoglobin today, will need admission for inpatient management and administration of blood. Patient has expressed no further interest in working with GI and wants to continue working with her primary care. She is receptive to staying in the hospital for management of her recurring anemia. Will reach out to PCP for admission. will plan to administer 2 units blood. Discussed findings with Dr Joaquin, agrees to admission. Will administer blood and admit patient. . Patient in agreement with these findings without further questions or concerns. (JEFFERY PEDRAZA APRN) Course & Med Decision Making I have reviewed the PA/PRESS AND BLOW MACHINE TENDER's note and Plan of Care. I was available for consultation as needed during the patient's visit in the emergency department. I agree with the clinical impression, plans and disposition. (CASPER ELLISON MD) Dragon Disclaimer: Dragon Disclaimer: This electronic medical record was generated, in whole or in part, using a voice recognition dictation system. (JEFFERY PEDRAZA APRN) Departure Departure Impression: Primary Impression: Anemia Qualified Codes: D63.8 - Anemia in other chronic diseases classified elsewhere Additional Impression: GI bleed Qualified Codes: K92.2 - Gastrointestinal hemorrhage, unspecified Disposition: ADMITTED INPT THIS HOSP Admitting Physician: Anabel Joaquin (JEFFERY PEDRAZA APRN) Condition: STABLE Referrals: ANABEL JOAQUIN MD (PCP) JEFFERY PEDRAZA APRN Oct 02, 2020 16:32 CASPER ELLISON MD Oct 03, 2020 00:05
[2020-10-02 16:33] LABS: HEMOGLOBIN 5.6 g/dL (12.0-15.5)
[2020-10-02 16:34] LABS: HEMATOCRIT 17.5 % (36.0-47.0)
[2020-10-02 17:03] LABS: CALCIUM 8.4 mg/dL (8.5-10.1); CREATININE 0.8 mg/dL (0.6-1.0); GFR 70.9; POTASSIUM 4.1 mmol/L (3.5-5.1)
[2020-10-02 17:09] LABS: ALBUMIN 2.5 g/dL (3.4-5.0); ALBUMIN/GLOBULIN RATIO 1.1 (1.0-1.7); MAGNESIUM 2.1 mg/dL (1.8-2.4); TOTAL BILIRUBIN 0.2 mg/dL (0.2-1.0); TOTAL PROTEIN 4.8 g/dL (6.4-8.2)
--- NOTE | 2020-10-02 17:12 | RAD ---
CHEST AP ONLY 10/02/2020 4:13 PM INDICATION: Fatigue COMPARISON: 08/21/2020 TECHNIQUE: Portable frontal view of the chest is provided. FINDINGS: The cardiomediastinal silhouette is borderline in size, stable. Mild similar pulmonary vascular congestion. No pleural effusions or pneumothorax. No suspicious osseous abnormality. IMPRESSION: No significant interval change compared to the prior examination with findings suggestive of mild pulmonary vascular congestion. Electronically signed by: Balbina Guerrero MD (10/02/2020 5:09 PM) [facility]
[2020-10-02] MEDS ORDERED: ONDANSETRON PF 4 MG/2 ML VIAL. IV PRN (17:15)
[2020-10-02] MEDS ORDERED: MORPHINE SULFATE 2 MG/ML VIAL. IV PRN (17:15)
[2020-10-02] MEDS ORDERED: ACETAMINOPHEN 325 MG TABLET. PO PRN (17:15)
[2020-10-02] MEDS ORDERED: PANTOPRAZOLE IV PUSH 40 MG VIAL. IVP ONE (17:45)
[2020-10-03] VITALS (9 sets, daily range): BP systolic 85–120; BP diastolic 33–52
[2020-10-03] MEDS ORDERED: PANTOPRAZOLE IV PUSH 40 MG VIAL. IVP ONE (01:15)
[2020-10-03] MEDS: IV NORMAL SALINE 1000ML BAG 1,000 ML IV SCH ×2 (01:38→06:35)
[2020-10-03 02:45] LABS: RED BLOOD COUNT 2.3 x10^6/uL (3.50-5.40); RED CELL DISTRIBUTION WIDTH 15.2 % (11.5-14.5); WHITE BLOOD COUNT 6.5 x10^3/uL (4.0-11.0)
[2020-10-03 02:48] LABS: HEMATOCRIT 20.3 % (36.0-47.0); HEMOGLOBIN 6.7 g/dL (12.0-15.5)
[2020-10-03] MEDS ORDERED: PANTOPRAZOLE 40 MG TABLET.DR. PO SCH (07:30)
[2020-10-03] MEDS ORDERED: ASPIRIN ENTERIC COATED 325 MG TABLET.DR. PO SCH (08:00)
[2020-10-03] MEDS ORDERED: POTASSIUM CHLORIDE 20 MEQ TABLET.ER. PO SCH (08:00)
[2020-10-03] MEDS ORDERED: RIVAROXABAN 10 MG TABLET. PO SCH (08:00)
[2020-10-03] MEDS ORDERED: DULoxetine HCL 30 MG CAPSULE.DR PO SCH (09:00)
[2020-10-03] MEDS ORDERED: FUROSEMIDE 40 MG TABLET. PO SCH (09:00)
[2020-10-03] MEDS ORDERED: PIOGLITAZONE 15 MG TABLET. PO SCH (09:00)
[2020-10-03] MEDS ORDERED: ALLOPURINOL 300 MG TABLET. PO SCH (09:00)
[2020-10-03] MEDS ORDERED: DESMOPRESSIN 0.1 MG TABLET. PO SCH (09:00)
[2020-10-03 09:18] LABS: BASO # 0.1 x10^3/uL (0.0-0.2); BASO % 2 % (0-3); EOS # 0.3 x10^3/uL (0.0-0.7); EOS % 4 % (0-3); HEMOGLOBIN 7.8 g/dL (12.0-15.5); LYMPH # 1.6 x10^3/uL (1.0-4.8); LYMPH % 22 % (24-48); MEAN CORPUSCULAR HEMOGLOBIN 29 pg (25-35); MEAN CORPUSCULAR HGB CONC 33 g/dL (31-37); MEAN CORPUSCULAR VOLUME 88 fL (79-100); MONO # 0.6 x10^3/uL (0.0-1.1); MONO % 9 % (0-9); NEUT # 4.8 x10^3/uL (1.8-7.7); NEUT % 65 % (31-73); PLATELET COUNT 377 x10^3/uL (140-400); RED BLOOD COUNT 2.74 x10^6/uL (3.50-5.40); RED CELL DISTRIBUTION WIDTH 14.9 % (11.5-14.5); WHITE BLOOD COUNT 7.5 x10^3/uL (4.0-11.0)
[2020-10-03 09:32] LABS: CALCIUM 7.7 mg/dL (8.5-10.1); CREATININE 0.7 mg/dL (0.6-1.0); GFR 82.7; POTASSIUM 3.8 mmol/L (3.5-5.1)
--- NOTE | 2020-10-03 10:07 | NUR ---
SW following. Discussed with RN, pt from home, room air, regular diet. Pt getting blood transfusion today. Pt likely will discharge home with self care in the next day or two. Pt is a high risk readmission. SW will continue to follow.
[2020-10-03] MEDS ORDERED: ESTR-113 PO (10:39)
--- NOTE | 2020-10-03 10:58 | DS ---
DATE OF DISCHARGE: 10/03/2020 PRIMARY DIAGNOSIS: Gastrointestinal bleed with symptomatic anemia. ADDITIONAL DIAGNOSES: Diabetes, chronic obstructive pulmonary disease, hyperlipidemia, status post mesenteric bypass with history of clotting. CHIEF COMPLAINT AND HISTORY OF PRESENT ILLNESS: This 70-year-old white female admitted through the Emergency Room with melanotic stools, weakness, lightheadedness, hemoglobin 5.6 with symptomatic GI bleeding. SUMMARY OF STAY: The patient was admitted, typed, crossed and transfused a total of 3 units of packed red blood cells. Hemoglobin was 7.8 after the third unit and the patient was felt ready for dismissal with at this point adding estrogen to her regimen in addition to try to prevent further bleeding from AV malformations in the small bowel loops. DISPOSITION: The patient is discharged to home. DIET: ADA diet. ACTIVITY: As tolerated, office in 1 week. DISCHARGE MEDICATIONS: Listed on the med rec and have been addressed, on her regular home medications. In addition, will be taking estradiol 1 mg daily. ANABEL MARTÍNEZ MD DR: IZA/heriberto JOB#: [id number] / [id number]
--- NOTE | 2020-10-03 11:52 | HP ---
ADMIT DATE: 10/02/2020 CHIEF COMPLAINT AND HISTORY OF PRESENT ILLNESS: This 70-year-old white female well known to me in followup in the office, was readmitted through the ER on the day of admission with some bleeding and had some AV malformation of small bowel. This was complicated by the fact that she has been on anticoagulants ____ mesenteric bypass surgery for which she has had issues, clotting ____ failure. We have had her on DDAVP in hopes of slowing down the bleeding but does not seem like it is and the only other thing I know that sometimes slows down bleeding ____ of prior clotting difficulties. It is hard to start except ____ due at this point in time as she is on anticoagulation in addition with this and I do not know anything else. She is currently being readmitted approximately on a weekly basis for GI bleeds. GI has no specific thoughts on how to ____. PAST MEDICAL HISTORY: Remarkable for diabetes, COPD with mesenteric ischemia. She has hyperlipidemia, depression, gout. MEDICATIONS: Brought with the patient, listed on the computer and have been addressed. ALLERGIES: SHE IS ALLERGIC TO SHRIMP. SOCIAL HISTORY: She is a current everyday smoker, does not use alcohol or drugs. She is single and lives alone. FAMILY HISTORY: Noncontributory. REVIEW OF SYSTEMS: Remarkable for weakness, lightheadedness, decreased energy melanotic stools and possibly some slight increase in her shortness of breath, which are her normal symptomatology for recurrent bleeding. PHYSICAL EXAMINATION: GENERAL: She is well-developed, well-nourished white female, in no acute distress by the time of my examination, but she has had 3 units of blood and hemoglobin is up to 7.8. HEAD, EYES, EARS, NOSE AND THROAT: Unremarkable. NECK: Supple, without thyromegaly. CHEST: Clear to auscultation and percussion. HEART: Regular rate and rhythm without S3, S4 or murmur. ABDOMEN: Soft, nontender, without hepatosplenomegaly or masses. EXTREMITIES: Without cyanosis, clubbing, edema. NEUROLOGIC: She is intact. LABORATORY DATA: Initial hemoglobin on admission is 5.6 and BUN is somewhat increased at 38 consistent with intraluminal blood. IMPRESSION: 1. Recurrent gastrointestinal bleed with symptomatic anemia. 2. Other problems listed above. PLAN: The patient has been admitted on observation. Should be typed, crossed and transfused monitored, managed and treated appropriately. ANABEL MARTÍNEZ MD DR: IZA/heriberto JOB#: [id number] / [id number]
--- NOTE | 2020-10-03 15:45 | NUR ---
Patient discharged home today via wheelchair accompany by aid. Patient is alert, stable, IV removed, followup and discharge paperwork give to patient. Patient verbalized understanding of discharge instructions.
[2020-10-03] MEDS ORDERED: ATORVASTATIN CALCIUM 10 MG TABLET. PO SCH (21:00)
== END 2020-10-03 15:51 | disposition home or self-care (01) ==
LOC: ER 14:42 → ED HOLD 17:00 → 4 NORTH 19:43
PROVIDERS: ADMIT Family Medicine; ATTEND Family Medicine
DX: K92.2 Gastrointestinal hemorrhage, unspecified (principal); D63.8 Anemia in other chronic diseases classified elsewhere; J44.9 Chronic obstructive pulmonary disease, unspecified; E11.9 Type 2 diabetes mellitus without complications; M19.90 Unspecified osteoarthritis, unspecified site; K21.9 Gastro-esophageal reflux disease without esophagitis; F32.9 Major depressive disorder, single episode, unspecified; E78.5 Hyperlipidemia, unspecified; M10.9 Gout, unspecified; E78.00 Pure hypercholesterolemia, unspecified; F17.210 Nicotine dependence, cigarettes, uncomplicated; Z98.890 Other specified postprocedural states; Z86.73 Personal history of transient ischemic attack (TIA), and cerebral infarction without residual deficits; Z98.49 Cataract extraction status, unspecified eye; Z96.653 Presence of artificial knee joint, bilateral
CPT/HCPCS: 36415; 36430; 71045; 80048; 80053; 82962; 83735; 84484; 85025; 85027; 86850; 86900; 86901; 86920; 93005; 96361; 96374; 99285; C9113; G0378; J7030; P9016; G0379

== ENCOUNTER 2020-10-22 14:13 | Observation (INO) | payer MEDICARE, MEDICAID ==
[~2020-10-22] VITALS: Ht 172.7 cm; Wt 77.4 kg
[2020-10-22] VITALS (10 sets, daily range): BP systolic 91–109; BP diastolic 36–45
[~2020-10-22 14:13] MED LIST changes: +ESTR-113 PO
[2020-10-22] MEDS: IV NORMAL SALINE 1000ML BAG 1,000 ML IV SCH ×2 (16:29→22:40)
[2020-10-22 16:52] LABS: BASO # 0.1 x10^3/uL (0.0-0.2); BASO % 1 % (0-3); EOS # 0.2 x10^3/uL (0.0-0.7); EOS % 3 % (0-3); LYMPH # 1.2 x10^3/uL (1.0-4.8); LYMPH % 19 % (24-48); MEAN CORPUSCULAR HEMOGLOBIN 27 pg (25-35); MEAN CORPUSCULAR HGB CONC 31 g/dL (31-37); MEAN CORPUSCULAR VOLUME 88 fL (79-100); MONO # 0.8 x10^3/uL (0.0-1.1); MONO % 12 % (0-9); NEUT # 4.3 x10^3/uL (1.8-7.7); NEUT % 65 % (31-73); PLATELET COUNT 464 x10^3/uL (140-400); RED BLOOD COUNT 1.82 x10^6/uL (3.50-5.40); RED CELL DISTRIBUTION WIDTH 17.3 % (11.5-14.5); WHITE BLOOD COUNT 6.6 x10^3/uL (4.0-11.0)
[2020-10-22 16:54] LABS: HEMOGLOBIN 4.9 g/dL (12.0-15.5)
[2020-10-22] MEDS ORDERED: C.DIFF MED SCREEN BY RX. MC PRN (20:45)
[2020-10-22] MEDS ORDERED: ATORVASTATIN CALCIUM 10 MG TABLET. PO SCH (21:00)
[2020-10-22] MEDS: DESMOPRESSIN 0.1 MG TABLET. PO SCH (21:56)
[2020-10-23] VITALS (15 sets, daily range): BP systolic 92–123; BP diastolic 37–57
--- NOTE | 2020-10-23 03:08 | NUR ---
PATIENT DROWSY, WHEN AWAKENED, AND INQUIRED ABOUT LOW BLOOD PRESSURE, SHE REPORTS THAT SHE FREQUENTLY HAS A LOW BLOOD PRESSURE WHEN SHE COMES INTO THE HOSPITAL.
[2020-10-23] MEDS ORDERED: PANTOPRAZOLE 40 MG TABLET.DR. PO SCH (07:30)
[2020-10-23] MEDS: IV NORMAL SALINE 1000ML BAG 1,000 ML IV SCH ×2 (07:44→12:00)
[2020-10-23] MEDS ORDERED: ASPIRIN ENTERIC COATED 325 MG TABLET.DR. PO SCH (08:00)
[2020-10-23] MEDS ORDERED: RIVAROXABAN 10 MG TABLET. PO SCH (08:00)
[2020-10-23] MEDS: ALLOPURINOL 300 MG TABLET. PO SCH ×2 (08:31→08:33)
[2020-10-23] MEDS: DULoxetine HCL 30 MG CAPSULE.DR PO SCH ×2 (08:31→08:33)
[2020-10-23] MEDS: DESMOPRESSIN 0.1 MG TABLET. PO SCH (08:31)
[2020-10-23 08:52] LABS: BASO # 0.1 x10^3/uL (0.0-0.2); BASO % 2 % (0-3); EOS # 0.2 x10^3/uL (0.0-0.7); EOS % 3 % (0-3); HEMATOCRIT 21.3 % (36.0-47.0); LYMPH # 1.5 x10^3/uL (1.0-4.8); LYMPH % 20 % (24-48); MEAN CORPUSCULAR HEMOGLOBIN 28 pg (25-35); MEAN CORPUSCULAR HGB CONC 32 g/dL (31-37); MEAN CORPUSCULAR VOLUME 89 fL (79-100); MONO # 0.8 x10^3/uL (0.0-1.1); MONO % 10 % (0-9); NEUT # 4.8 x10^3/uL (1.8-7.7); NEUT % 65 % (31-73); PLATELET COUNT 386 x10^3/uL (140-400); RED CELL DISTRIBUTION WIDTH 17.3 % (11.5-14.5); WHITE BLOOD COUNT 7.4 x10^3/uL (4.0-11.0)
[2020-10-23] MEDS ORDERED: POTASSIUM CHLORIDE 20 MEQ TABLET.ER. PO SCH (09:00)
[2020-10-23] MEDS ORDERED: PIOGLITAZONE 15 MG TABLET. PO SCH (09:00)
[2020-10-23] MEDS ORDERED: ESTRADIOL 1 MG TABLET. PO SCH (09:00)
[2020-10-23] MEDS ORDERED: FUROSEMIDE 40 MG TABLET. PO SCH (09:00)
[2020-10-23 09:05] LABS: HEMOGLOBIN 6.7 g/dL (12.0-15.5)
--- NOTE | 2020-10-23 10:01 | NUR ---
SW following. Discussed with RN, pt from home, room air, regular diet. Pt received units of blood - awaiting hgn recheck. If hgn okay, pt can discharge home per Dr. Joaquin. RN advised no SW needs at this time. SW will continue to follow.
[2020-10-23] MEDS ORDERED: ANTI-COAG MONITOR BY PHARMACY. MC PRN (11:30)
--- NOTE | 2020-10-23 11:50 | NUR ---
Pharmacy Medication Review S: Consulted for medication review re: C.diff Risk Assessment score of 4 O: CHOCO YEH is a 70 year old with: Previous C.diff infection: No Previous hospitalization: Within 30 days Recent antibiotics: No Use of gastric acid suppressor: Yes Transfer from [place]/LTAC: No Current antibiotic regimen: Current acid suppression regimen: A: Patient has been identified as having risk factors for C.diff infection as noted above. P: Antibiotic Regimen recommendation made: N/A Probiotic ordered: Yes PPI changed to [id number]: Done Brad Angulo [facility], 10/23/20 [id number]
--- NOTE | 2020-10-23 14:20 | HP ---
ADMIT DATE: 10/22/2020 CHIEF COMPLAINT AND HISTORY OF PRESENT ILLNESS: This 70-year-old white female admitted with recurrent symptomatic GI bleeding with a hemoglobin of 4.9 on admission. PAST MEDICAL HISTORY: Remarkable for recurrent GI bleeds with anemia. She also has a history of asthma, arthritis, COPD, diabetes, GERD, hyperlipidemia, prior TIA, macular degeneration as well as neuropathy. 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 MEDICATIONS: Brought with the patient, listed on the computer, have been addressed. ALLERGIES: SHRIMP. SOCIAL HISTORY: She continues to smoke on a daily basis, does not use alcohol or drugs. She is single, lives at home alone. FAMILY HISTORY: Noncontributory. REVIEW OF SYSTEMS: Remarkable for the lightheadedness, fatigue, shortness of breath with activity, weakness. PHYSICAL EXAMINATION: GENERAL: She is a well-developed, well-nourished white female, in no acute distress. VITAL SIGNS: Stable. She is afebrile. Blood pressures were on the lower side, but she is not tachycardic. HEAD, EYES, EARS, NOSE AND THROAT: Remarkable for pallor of the conjunctivae. NECK: Supple without adenopathy or thyromegaly. CHEST: Clear to auscultation and percussion with decreased breath sounds. HEART: Regular rate and rhythm without S3, S4 or murmur. ABDOMEN: Soft, nontender, without hepatosplenomegaly or mass. EXTREMITIES: Without cyanosis, clubbing, edema. NEUROLOGIC: She is intact. IMPRESSION: 1. 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 2. Other problems listed above. PLAN: Type, cross, and transfuse 2 units of packed red blood cells. We will recheck a CBC. If it is below 7 give her a third unit prior to discharge and back home on her regular home medications. ANABEL MARTÍNEZ MD DR: IZA/heriberto JOB#: [id number] / [id number]
--- NOTE | 2020-10-23 14:26 | DS ---
DATE OF DISCHARGE: 10/23/2020 PRIMARY DIAGNOSIS: Gastrointestinal bleed with symptomatic anemia. ADDITIONAL DIAGNOSES: Mesenteric ischemia, diabetes, peripheral arterial disease, ongoing anticoagulation therapy. CHIEF COMPLAINT AND HISTORY OF PRESENT ILLNESS: This 70-year-old white female admitted with symptomatic anemia due to recurrent GI bleeding from presumed AVMs in the small bowel by small bowel capsule. She remains on anticoagulation for Vascular Surgery after mesenteric bypass and they insist on the same continuing. SUMMARY OF STAY: The patient was admitted. Initial hemoglobin was 4.9 and 6.7 after 2 units and she received a third unit prior to discharge. She felt much better with the as she normally does and was able to take p.o. and move around safely and felt she could be dismissed after the second unit with H and H pending at that time. DISPOSITION: The patient is discharged to home. DIET: Regular diet. ACTIVITY: As tolerated, office in 1 week. DISCHARGE MEDICATIONS: Listed on the med rec and have been addressed and are her regular home medications. ANABEL MARTÍNEZ MD DR: IZA/heriberto JOB#: [id number] / [id number]
[2020-10-23 15:20] LABS: HEMATOCRIT 25.7 % (36.0-47.0); HEMOGLOBIN 8.1 g/dL (12.0-15.5)
--- NOTE | 2020-10-23 16:02 | NUR ---
Discharge Note: CHOCO YEH Discharge instructions and discharge home medications reviewed with Patient and a copy given. All questions have been answered and understanding verbalized. The following instructions and handouts were given: Patient given education regarding GI bleed. Discontinued lines and drains: Iv removed per protocol. Patient discharged home, picked up by friend.
[2020-10-23] MEDS ORDERED: FAMOTIDINE 20 MG TABLET. PO SCH (21:00)
[2020-10-23] MEDS ORDERED: ALLOPURINOL 300 MG TABLET. PO SCH (21:00)
[2020-10-23] MEDS ORDERED: DULoxetine HCL 30 MG CAPSULE.DR PO SCH (21:00)
--- NOTE | 2020-10-28 10:00 | NUR ---
NaCl started at 16:29 on 10/22--stop time 07:44 on 10/23 NaCl started at 07:44 on 10/23--stop time 15:00 10/23
[2021-02-13] MEDS ORDERED: ASPI325T8 PO (07:30)
--- NOTE | 2021-02-18 13:43 | PDOC1 ---
History & Physical: Date of Service: DOS: 10/22/2020 H&P: PATIENT: CHOCO YEH ACCOUNT: [id number] : 1950 LOC: [address] [place] [address] AGE: 70 SEX: F STATUS: DIS IN LOCATION: [address] [place] [address] ADMIT DATE: 10/22/2020 CHIEF COMPLAINT AND HISTORY OF PRESENT ILLNESS: This 70-year-old white female admitted with recurrent symptomatic GI bleeding with a hemoglobin of 4.9 on admission. PAST MEDICAL HISTORY: Remarkable for recurrent GI bleeds with anemia. She also has a history of asthma, arthritis, COPD, diabetes, GERD, hyperlipidemia, prior TIA, macular degeneration as well as neuropathy. 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 MEDICATIONS: Brought with the patient, listed on the computer, have been addressed. ALLERGIES: SHRIMP. SOCIAL HISTORY: She continues to smoke on a daily basis, does not use alcohol or drugs. She is single, lives at home alone. FAMILY HISTORY: Noncontributory. REVIEW OF SYSTEMS: Remarkable for the lightheadedness, fatigue, shortness of breath with activity, weakness. PHYSICAL EXAMINATION: GENERAL: She is a well-developed, well-nourished white female, in no acute distress. VITAL SIGNS: Stable. She is afebrile. Blood pressures were on the lower side, but she is not tachycardic. HEAD, EYES, EARS, NOSE AND THROAT: Remarkable for pallor of the conjunctivae. NECK: Supple without adenopathy or thyromegaly. CHEST: Clear to auscultation and percussion with decreased breath sounds. HEART: Regular rate and rhythm without S3, S4 or murmur. ABDOMEN: Soft, nontender, without hepatosplenomegaly or mass. EXTREMITIES: Without cyanosis, clubbing, edema. NEUROLOGIC: She is intact. IMPRESSION: 1. 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 2. Other problems listed above. PLAN: Type, cross, and transfuse 2 units of packed red blood cells. We will recheck a CBC. If it is below 7 give her a third unit prior to discharge and back home on her regular home medications. ANABEL Randolph. MD TANYA DR: IZA/heriberto JOB#: [id number] / [id number] DICTATED BY: ANABEL AMRTÍNEZ MD 10/23/20 1400 SIGNED BY: ANABEL MARTÍNEZ MD 10/24/20 1731 cc: ANABEL MARTÍNEZ MD ~MTF0 28 Page of ANABEL MARTÍNEZ MD Feb 18, 2021 13:43
== END 2020-10-23 15:04 | disposition home or self-care (01) ==
LOC: INTOOBSV 14:13 → 5 NORTH 14:13
PROVIDERS: ADMIT Family Medicine; ATTEND Family Medicine
DX: K92.2 Gastrointestinal hemorrhage, unspecified (principal); K55.059 Acute (reversible) ischemia of intestine, part and extent unspecified; I73.9 Peripheral vascular disease, unspecified; K55.20 Angiodysplasia of colon without hemorrhage; D64.9 Anemia, unspecified; J44.9 Chronic obstructive pulmonary disease, unspecified; E11.40 Type 2 diabetes mellitus with diabetic neuropathy, unspecified; E78.5 Hyperlipidemia, unspecified; K21.9 Gastro-esophageal reflux disease without esophagitis; M19.90 Unspecified osteoarthritis, unspecified site; F17.200 Nicotine dependence, unspecified, uncomplicated; Z86.73 Personal history of transient ischemic attack (TIA), and cerebral infarction without residual deficits; Z96.659 Presence of unspecified artificial knee joint; Z98.890 Other specified postprocedural states; Z90.49 Acquired absence of other specified parts of digestive tract; Z95.1 Presence of aortocoronary bypass graft; Z79.01 Long term (current) use of anticoagulants
CPT/HCPCS: 36415; 36430; 82962; 85014; 85018; 85025; 86850; 86900; 86901; 86920; 96360; 96361; G0378; G0379; J7030; P9016

== ENCOUNTER 2020-11-01 09:53 | Inpatient (IN) | payer MEDICARE, MEDICAID ==
[2020-11-01] VITALS (11 sets, daily range): BP systolic 81–112; BP diastolic 34–54
[~2020-11-01] VITALS: Ht 172.7 cm; Wt 82.0 kg
[2020-11-01] MEDS: IV NORMAL SALINE 1000ML BAG 1,000 ML IV SCH ×3 (10:45→22:08)
[2020-11-01] MEDS: RIVAROXABAN 10 MG TABLET. PO SCH (11:00)
[2020-11-01] MEDS: ESTRADIOL 1 MG TABLET. PO SCH (11:00)
[2020-11-01] MEDS: POTASSIUM CHLORIDE 20 MEQ TABLET.ER. PO SCH (11:00)
[2020-11-01] MEDS: ALLOPURINOL 100 MG TABLET. PO SCH (11:00)
[2020-11-01] MEDS: DESMOPRESSIN 0.1 MG TABLET. PO SCH ×2 (11:00→22:07)
[2020-11-01] MEDS: FUROSEMIDE 40 MG TABLET. PO SCH (11:00)
[2020-11-01] MEDS: PANTOPRAZOLE 40 MG TABLET.DR. PO SCH (11:00)
[2020-11-01] MEDS: DULoxetine HCL 30 MG CAPSULE.DR PO SCH (11:00)
[2020-11-01] MEDS ORDERED: ASPIRIN ENTERIC COATED 325 MG TABLET.DR. PO SCH (11:00)
[2020-11-01] MEDS: PIOGLITAZONE 15 MG TABLET. PO SCH (11:00)
[2020-11-01 11:58] LABS: BASO # 0.1 x10^3/uL (0.0-0.2); BASO % 1 % (0-3); EOS # 0.1 x10^3/uL (0.0-0.7); EOS % 1 % (0-3); LYMPH # 1.2 x10^3/uL (1.0-4.8); LYMPH % 15 % (24-48); MEAN CORPUSCULAR HEMOGLOBIN 28 pg (25-35); MEAN CORPUSCULAR HGB CONC 31 g/dL (31-37); MEAN CORPUSCULAR VOLUME 89 fL (79-100); MONO # 0.6 x10^3/uL (0.0-1.1); MONO % 8 % (0-9); NEUT # 5.9 x10^3/uL (1.8-7.7); NEUT % 75 % (31-73); PLATELET COUNT 427 x10^3/uL (140-400); RED BLOOD COUNT 1.63 x10^6/uL (3.50-5.40); RED CELL DISTRIBUTION WIDTH 18.5 % (11.5-14.5); WHITE BLOOD COUNT 7.9 x10^3/uL (4.0-11.0)
[2020-11-01 12:01] LABS: HEMATOCRIT 14.5 % (36.0-47.0); HEMOGLOBIN 4.5 g/dL (12.0-15.5)
[2020-11-01 12:06] LABS: CALCIUM 7.8 mg/dL (8.5-10.1); CREATININE 0.7 mg/dL (0.6-1.0); GFR 82.7
[2020-11-01 12:12] LABS: ALBUMIN 2.4 g/dL (3.4-5.0); ALBUMIN/GLOBULIN RATIO 0.9 (1.0-1.7); TOTAL BILIRUBIN 0.4 mg/dL (0.2-1.0); TOTAL PROTEIN 5.2 g/dL (6.4-8.2)
[2020-11-01] MEDS ORDERED: ANTI-COAG MONITOR BY PHARMACY. MC PRN (13:45)
--- NOTE | 2020-11-01 14:55 | EKG ---
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
--- NOTE | 2020-11-01 17:41 | NUR ---
elevated troponin .544 reported to FAUSTO Garcia
[2020-11-01] MEDS ORDERED: MORPHINE SULFATE 2 MG/ML VIAL. IV PRN (19:00)
[2020-11-01] MEDS ORDERED: METOPROLOL IV PUSH 5 MG/5 ML VIAL. IVP ONE (19:00)
--- NOTE | 2020-11-01 19:25 | NUR ---
NURSING NOTE Upon assuming care of pt, pts vitals checked and O2 sat was 87% on RA. Pt does report feeling somewhat SOA. Pt placed on O2 @ 2L/NC, O2 sat up to 92/93%. Pt states a decrease in SOA. Pt denies any pain at this time. Call light in reach. Will monitor.
[2020-11-01] MEDS: ATORVASTATIN CALCIUM 10 MG TABLET. PO SCH (22:07)
[2020-11-02] VITALS (14 sets, daily range): BP systolic 50–119; BP diastolic 39–59
[2020-11-02] MEDS: IV NORMAL SALINE 1000ML BAG 1,000 ML IV SCH ×3 (05:33→21:20)
[2020-11-02] MEDS: PIOGLITAZONE 15 MG TABLET. PO SCH (08:09)
[2020-11-02] MEDS: DULoxetine HCL 30 MG CAPSULE.DR PO SCH (08:09)
[2020-11-02] MEDS: RIVAROXABAN 10 MG TABLET. PO SCH (08:09)
[2020-11-02] MEDS: ASPIRIN ENTERIC COATED 81 MG TABLET.DR. PO SCH (08:09)
[2020-11-02] MEDS: POTASSIUM CHLORIDE 20 MEQ TABLET.ER. PO SCH (08:09)
[2020-11-02] MEDS: ALLOPURINOL 100 MG TABLET. PO SCH (08:10)
[2020-11-02] MEDS: PANTOPRAZOLE 40 MG TABLET.DR. PO SCH (08:10)
[2020-11-02] MEDS: ESTRADIOL 1 MG TABLET. PO SCH (08:10)
[2020-11-02] MEDS: FUROSEMIDE 40 MG TABLET. PO SCH (08:10)
[2020-11-02] MEDS: DESMOPRESSIN 0.1 MG TABLET. PO SCH ×2 (08:10→21:19)
--- NOTE | 2020-11-02 12:02 | PDOC ---
DR. MARTÍNEZ PROGRESS NOTE Date of Service DOS: DATE: 11/02/20 TIME: 11:56 Chief Complaint Chief Complaint no further chest pain since transfusion and sob much better but still some this am. History of Present Illness History of Present Illness admitted with symptomatic anemia from recurrent GI bleed. had chest pain last pm and troponin elevated with same and awaiting cardiology opinion on same. repeat cbc ordered on admission not done and reordered. asked nursing to call me with same and likely will need another unit prbc's. Vitals/I&O Vitals/I&O: Vital Signs Date Time Temp Pulse Resp B/P (MAP) Pulse Ox O2 Delivery O2 Flow Rate FiO2 11/02/20 07:00 99.2 105 18 116/56 (76) 90 Nasal Cannula 2.0 99.2 I & O 11/01/20 11/01/20 11/02/20 15:00 23:00 07:00 Intake Total 498 ml 2376 ml 1350 ml Balance 498 ml 2376 ml 1350 ml Physical Exam General: Alert, Oriented X3, Cooperative, No acute distress Heart: Regular rate Lungs: Clear Abdomen: Normal bowel sounds, No tenderness Extremities: No edema Skin: No rashes Review of Systems Review of Systems: sob persists but improved, dizziness gone, no further chest pain. Assessment and Plan Assessmemt and Plan GI bleed. symptomatic anemia. chest pain with elevated troponin. vasculopathy, DM. will await cbc and likely another unit prbc's to be transfused. await cardiology eval. not sure why H&P dictated yesterday is not in record. Comment Review of Relevant I have reviewed the following items lucia (where applicable) has been applied. Medications: Current Medications Medications (Trade) Dose Ordered Sig/Kira Route PRN Reason Start Time Stop Time Status Last Admin Dose Admin Atorvastatin Calcium (Lipitor) 5 mg QHS PO 11/01/20 21:00 11/01/20 22:07 Aspirin (Ecotrin) 81 mg DAILYWBKFT PO 11/02/20 08:00 11/02/20 08:09 ANABEL MARTÍNEZ MD Nov 02, 2020 12:02
[2020-11-02 15:46] LABS: BASO % 0 % (0-3); EOS # 0.1 x10^3/uL (0.0-0.7); EOS % 0 % (0-3); LYMPH # 1.2 x10^3/uL (1.0-4.8); LYMPH % 10 % (24-48); MEAN CORPUSCULAR HEMOGLOBIN 28 pg (25-35); MEAN CORPUSCULAR HGB CONC 32 g/dL (31-37); MEAN CORPUSCULAR VOLUME 89 fL (79-100); MONO # 1.3 x10^3/uL (0.0-1.1); MONO % 12 % (0-9); NEUT % 78 % (31-73); PLATELET COUNT 395 x10^3/uL (140-400); RED BLOOD COUNT 2.06 x10^6/uL (3.50-5.40); RED CELL DISTRIBUTION WIDTH 16.6 % (11.5-14.5); WHITE BLOOD COUNT 11.6 x10^3/uL (4.0-11.0)
[2020-11-02 15:59] LABS: HEMATOCRIT 18.2 % (36.0-47.0); HEMOGLOBIN 5.8 g/dL (12.0-15.5)
[2020-11-02] MEDS: ATORVASTATIN CALCIUM 10 MG TABLET. PO SCH (21:19)
[2020-11-02] MEDS: ALLOPURINOL 300 MG TABLET. PO SCH (21:19)
--- NOTE | 2020-11-02 23:47 | PDOC2 ---
CARDIOLOGY CONSULT NOTE DATE OF SERVICE: DATE: 11/02/20 TIME: 23:43 CHIEF COMPLAINT: weakness, anemia HPI: 70 y.o woman with PAD presents with severe anemia, this is a recurrent problem, for unclear reasons troponin was checked and noted to be elevated. She is on anticoagulation and asa due to prior severe mesenteric ischemia. Currently she has no chest pain or dyspnea. PMHX: PAD with prior SMA stent and failed bypass with prior thrombectomy DM2 SOCHX: +tobacco use FAMHX: NC CURRENT MEDS: Current Medications Medications (Trade) Dose Ordered Sig/Kira Route PRN Reason Start Time Stop Time Status Last Admin Dose Admin Aspirin (Ecotrin) 81 mg DAILYWBKFT PO 11/02/20 08:00 11/02/20 08:09 Allopurinol (Zyloprim) 300 mg HS PO 11/02/20 21:00 11/02/20 21:19 ALLERGIES: Allergies Coded Allergies Type Severity Reaction Last Updated Verified shrimp Allergy Intermediate Rash 08/07/20 Yes ROS: Negative unless noted above in HPI PHYSICAL EXAM: Vital Signs/I&O: Vital Signs Date Time Temp Pulse Resp B/P (MAP) Pulse Ox O2 Delivery O2 Flow Rate FiO2 11/02/20 23:10 98.8 101 16 107/52 98.8 11/02/20 23:00 90 Nasal Cannula 11/02/20 20:00 2.0 I & O 11/01/20 11/01/20 11/02/20 15:00 23:00 07:00 Intake Total 498 ml 2376 ml 1350 ml Balance 498 ml 2376 ml 1350 ml Physical Exam: Normal cardiopulmonary exam DIAGNOSTIC TESTING: LABS REVIEWED Lab Laboratory Tests Test 11/02/20 15:35 White Blood Count 11.6 x10^3/uL (4.0-11.0) H Red Blood Count 2.06 x10^6/uL (3.50-5.40) L Hemoglobin 5.8 g/dL (12.0-15.5) *L Hematocrit 18.2 % (36.0-47.0) *L Mean Corpuscular Volume 89 fL (79-100) Mean Corpuscular Hemoglobin 28 pg (25-35) Mean Corpuscular Hemoglobin Concent 32 g/dL (31-37) Red Cell Distribution Width 16.6 % (11.5-14.5) H Platelet Count 395 x10^3/uL (140-400) Neutrophils (%) (Auto) 78 % (31-73) H Lymphocytes (%) (Auto) 10 % (24-48) L Monocytes (%) (Auto) 12 % (0-9) H Eosinophils (%) (Auto) 0 % (0-3) Basophils (%) (Auto) 0 % (0-3) Neutrophils # (Auto) 9.0 x10^3/uL (1.8-7.7) H Lymphocytes # (Auto) 1.2 x10^3/uL (1.0-4.8) Monocytes # (Auto) 1.3 x10^3/uL (0.0-1.1) H Eosinophils # (Auto) 0.1 x10^3/uL (0.0-0.7) Basophils # (Auto) 0.0 x10^3/uL (0.0-0.2) Laboratory Tests 11/02/20 15:35 ASSESSMENT: 1. PAD with severe anemia. 2. GI bleed of unclear etiology PLAN: 1. No further CV testing with this severe anemia, troponin is secondary to stress. No further troponins will be drawn. 2 .Vascular surgery notified I think at this time the risk of full anticoagulation is too high to continue unless GI evaluation has been fully completed to evaluate source of bleeding. would recommend low dose aspirin and xarelto 10mg daily and see if this helps. No further CV input. Notified Dr. Pinto and vascular surgery service as well. THanks. Pls call with questions. DEYA DE SANTIAGO MD Nov 02, 2020 23:47
[2020-11-03] VITALS (7 sets, daily range): BP systolic 108–128; BP diastolic 53–81
[2020-11-03] MEDS: RIVAROXABAN 10 MG TABLET. PO SCH (02:27)
[2020-11-03] MEDS: IV NORMAL SALINE 1000ML BAG 1,000 ML IV SCH ×3 (02:45→21:07)
[2020-11-03 07:32] LABS: BASO # 0.1 x10^3/uL (0.0-0.2); BASO % 1 % (0-3); EOS % 0 % (0-3); HEMATOCRIT 23.6 % (36.0-47.0); HEMOGLOBIN 7.5 g/dL (12.0-15.5); LYMPH # 0.8 x10^3/uL (1.0-4.8); LYMPH % 6 % (24-48); MEAN CORPUSCULAR HEMOGLOBIN 28 pg (25-35); MEAN CORPUSCULAR HGB CONC 32 g/dL (31-37); MEAN CORPUSCULAR VOLUME 87 fL (79-100); MONO # 1.4 x10^3/uL (0.0-1.1); MONO % 11 % (0-9); NEUT # 10.2 x10^3/uL (1.8-7.7); NEUT % 82 % (31-73); PLATELET COUNT 378 x10^3/uL (140-400); WHITE BLOOD COUNT 12.5 x10^3/uL (4.0-11.0)
[2020-11-03] MEDS: PIOGLITAZONE 15 MG TABLET. PO SCH (08:03)
[2020-11-03] MEDS: DULoxetine HCL 30 MG CAPSULE.DR PO SCH (08:03)
[2020-11-03] MEDS: ESTRADIOL 1 MG TABLET. PO SCH (08:04)
[2020-11-03] MEDS: PANTOPRAZOLE 40 MG TABLET.DR. PO SCH (08:04)
[2020-11-03] MEDS: ASPIRIN ENTERIC COATED 81 MG TABLET.DR. PO SCH (08:04)
[2020-11-03] MEDS: POTASSIUM CHLORIDE 20 MEQ TABLET.ER. PO SCH (08:04)
[2020-11-03] MEDS: FUROSEMIDE 40 MG TABLET. PO SCH (08:04)
[2020-11-03] MEDS: DESMOPRESSIN 0.1 MG TABLET. PO SCH ×2 (08:04→21:02)
--- NOTE | 2020-11-03 08:42 | PDOC ---
Provider Note Date of Service: DATE: 11/03/20 TIME: 08:39 Provider Note sleeping/ no tachpnea- vss, no temp or new sxs- exam same- hb up to 7.5 after transfusions- cv input re troponins noted , no acute problem- follow daily hb re asa/xarelto use Justifications for Admission Other Justification LAZARA POLLACK MD Nov 03, 2020 08:42
--- NOTE | 2020-11-03 14:26 | PDOC2 ---
CONSULT Date of Service Date of Service DATE: 11/03/20 TIME: 14:22 Reason for Consult Reason for Consult: Hx of mesenteric bypass, GI bleed Referring Physician Referring Physician: Dr Brown Cardiology Identification/Chief Complaint Chief Complaint mesenteric vessel stenosis s/p bypass, GI bleed Source Source: Chart review, Patient History of Present Illness Reason for Visit: Admission for anemia, assume GI bleed Patient is a 70-year-old woman whose previously undergone SMA stent and then subsequent aorto celiac and SMA bypass who subsequently had bypass graft thrombosis and emergent open surgical thrombectomy of the bypass. She has since been on anticoagulation for this. She presented with significantly low hemoglobin of less than 5 improved now over 2 days with aggressive transfusion. We have been asked to see her given anticoagulation recommendations and presence of the bypass graft. On my exam today she is asleep in bed but easily arousable. Denies any current abdominal pain back pain flank pain or groin pain. Past Medical History Cardiovascular: HTN, Hyperlipidemia, Other Pulmonary: COPD CENTRAL NERVOUS SYSTEM: Periperal neuropathy, TIA GI: GERD, GI bleed, Peptic Ulcer disease, Other Heme/Onc: Anemia NOS Psych: Anxiety, Depression Musculoskeletal: Osteoarthritis Rheumatologic: No pertinent hx Infectious disease: No pertinent hx Renal/: No pertinent hx, UTI Endocrine: Diabetes Past Surgical History Past Surgical History Mesenteric artery bypass Thrombectomy of mesenteric artery bypass for acute occlusion Past Surgical History: Hernia Repair, Other Family History Family History: No Significant, Hypertension Social History ALCOHOL: none Drugs: None Lives: with Family Current Medications Current Medications Current Medications Allopurinol (Zyloprim) 300 mg DAILY PO ; Start 11/01/20 at 11:00; Stop 11/02/20 at 08:16; Status DC Aspirin (Ecotrin) 325 mg DAILYWBKFT PO ; Start 11/01/20 at 11:00; Stop 11/01/20 at 18:48; Status DC Estradiol (Estrace) 1 mg DAILY PO Last administered on 11/03/20at 08:04; Start 11/01/20 at 11:00 Furosemide (Lasix) 40 mg DAILY PO Last administered on 11/03/20at 08:04; Start 11/01/20 at 11:00 Potassium Chloride (Klor-Con) 20 meq DAILY PO Last administered on 11/03/20at 08:04; Start 11/01/20 at 11:00 Rivaroxaban (Xarelto) 20 mg DAILYWBKFT PO Last administered on 11/02/20at 08:09; Start 11/01/20 at 11:00 Desmopressin Acetate (Ddavp) 0.2 mg BID PO Last administered on 11/03/20at 08:04; Start 11/01/20 at 11:00 Duloxetine HCl (Cymbalta) 60 mg DAILY PO Last administered on 11/03/20at 08:03; Start 11/01/20 at 11:00 Pantoprazole Sodium (Protonix) 40 mg DAILYAC PO Last administered on 11/03/20at 08:04; Start 11/01/20 at 11:00 Pioglitazone HCl (Actos) 30 mg DAILY PO Last administered on 11/03/20at 08:03; Start 11/01/20 at 11:00 Atorvastatin Calcium (Lipitor) 5 mg QHS PO Last administered on 11/02/20at 21:19; Start 11/01/20 at 21:00 Sodium Chloride 1,000 ml @ 80 mls/hr [id number] IV Last administered on 11/03/20at 10:31; Start 11/01/20 at 10:45 Info (Anti-Coagulation Monitoring By Pharmacy) 1 each PRN DAILY PRN MC SEE COMMENTS; Start 11/01/20 at 13:45 Aspirin (Ecotrin) 81 mg DAILYWBKFT PO Last administered on 11/03/20at 08:04; Start 11/02/20 at 08:00 Morphine Sulfate (Morphine Sulfate) 2 mg PRN Q4HRS PRN IV PAIN; Start 11/01/20 at 19:00 Metoprolol Tartrate (Lopressor Vial) 5 mg 1X ONCE IVP ; Start 11/01/20 at 19:00; Stop 11/01/20 at 19:01; Status DC Allopurinol (Zyloprim) 300 mg HS PO Last administered on 11/02/20at 21:19; Start 11/02/20 at 21:00 Active Scripts Active Estradiol 1 Mg Tablet 1 Tab PO DAILY Lasix (Furosemide) 40 Mg Tablet 1 Tab PO DAILY 30 Days Xarelto (Rivaroxaban) 10 Mg Tablet 20 Mg PO DAILYWBKFT 30 Days Aspirin Ec (Aspirin) 325 Mg Tablet.dr 325 Mg PO DAILYWBKFT 90 Days Reported Klor-Con M20 (Potassium Chloride) 20 Meq Tab.er.prt 20 Meq PO DAILY Desmopressin Acetate 0.2 Mg Tablet 1 Tab PO BID Protonix (Pantoprazole Sodium) 20 Mg Tablet.dr 40 Mg PO DAILY Actos (Pioglitazone Hcl) 30 Mg Tablet 30 Mg PO DAILY Pravastatin Sodium 20 Mg Tablet 20 Mg PO QHS Allopurinol 100 Mg Tablet 300 Mg PO DAILY Cymbalta (Duloxetine Hcl) 60 Mg Capsule.dr 60 Mg PO DAILY Allergies Allergies: Coded Allergies: shrimp (Verified Allergy, Intermediate, Rash, 08/07/20) Physical Exam General: Alert, Oriented X3, Cooperative HEENT: Atraumatic Lungs: Clear to auscultation Heart: Regular rate, No murmurs Abdomen: Normal bowel sounds, Soft Extremities: No clubbing Skin: No rashes, No breakdown Neuro: Normal tone, Sensation intact MUSCULOSKELETAL: No joint tenderness, No deformity Vitals VITALS Vital Signs Date Time Temp Pulse Resp B/P (MAP) Pulse Ox O2 Delivery O2 Flow Rate FiO2 11/03/20 11:00 98.8 108 16 125/79 (94) 90 Nasal Cannula 2.0 98.8 Labs Labs Laboratory Tests Test 11/01/20 17:35 11/02/20 15:35 11/03/20 05:49 Troponin I Quantitative 0.950 ng/mL (0.000-0.055) White Blood Count 11.6 x10^3/uL (4.0-11.0) 12.5 x10^3/uL (4.0-11.0) Red Blood Count 2.06 x10^6/uL (3.50-5.40) 2.70 x10^6/uL (3.50-5.40) Hemoglobin 5.8 g/dL (12.0-15.5) 7.5 g/dL (12.0-15.5) Hematocrit 18.2 % (36.0-47.0) 23.6 % (36.0-47.0) Mean Corpuscular Volume 89 fL (79-100) 87 fL (79-100) Mean Corpuscular Hemoglobin 28 pg (25-35) 28 pg (25-35) Mean Corpuscular Hemoglobin Concent 32 g/dL (31-37) 32 g/dL (31-37) Red Cell Distribution Width 16.6 % (11.5-14.5) 16.0 % (11.5-14.5) Platelet Count 395 x10^3/uL (140-400) 378 x10^3/uL (140-400) Neutrophils (%) (Auto) 78 % (31-73) 82 % (31-73) Lymphocytes (%) (Auto) 10 % (24-48) 6 % (24-48) Monocytes (%) (Auto) 12 % (0-9) 11 % (0-9) Eosinophils (%) (Auto) 0 % (0-3) 0 % (0-3) Basophils (%) (Auto) 0 % (0-3) 1 % (0-3) Neutrophils # (Auto) 9.0 x10^3/uL (1.8-7.7) 10.2 x10^3/uL (1.8-7.7) Lymphocytes # (Auto) 1.2 x10^3/uL (1.0-4.8) 0.8 x10^3/uL (1.0-4.8) Monocytes # (Auto) 1.3 x10^3/uL (0.0-1.1) 1.4 x10^3/uL (0.0-1.1) Eosinophils # (Auto) 0.1 x10^3/uL (0.0-0.7) 0.0 x10^3/uL (0.0-0.7) Basophils # (Auto) 0.0 x10^3/uL (0.0-0.2) 0.1 x10^3/uL (0.0-0.2) Laboratory Tests Test 11/02/20 15:35 11/03/20 05:49 White Blood Count 11.6 x10^3/uL (4.0-11.0) 12.5 x10^3/uL (4.0-11.0) Red Blood Count 2.06 x10^6/uL (3.50-5.40) 2.70 x10^6/uL (3.50-5.40) Hemoglobin 5.8 g/dL (12.0-15.5) 7.5 g/dL (12.0-15.5) Hematocrit 18.2 % (36.0-47.0) 23.6 % (36.0-47.0) Mean Corpuscular Volume 89 fL (79-100) 87 fL (79-100) Mean Corpuscular Hemoglobin 28 pg (25-35) 28 pg (25-35) Mean Corpuscular Hemoglobin Concent 32 g/dL (31-37) 32 g/dL (31-37) Red Cell Distribution Width 16.6 % (11.5-14.5) 16.0 % (11.5-14.5) Platelet Count 395 x10^3/uL (140-400) 378 x10^3/uL (140-400) Neutrophils (%) (Auto) 78 % (31-73) 82 % (31-73) Lymphocytes (%) (Auto) 10 % (24-48) 6 % (24-48) Monocytes (%) (Auto) 12 % (0-9) 11 % (0-9) Eosinophils (%) (Auto) 0 % (0-3) 0 % (0-3) Basophils (%) (Auto) 0 % (0-3) 1 % (0-3) Neutrophils # (Auto) 9.0 x10^3/uL (1.8-7.7) 10.2 x10^3/uL (1.8-7.7) Lymphocytes # (Auto) 1.2 x10^3/uL (1.0-4.8) 0.8 x10^3/uL (1.0-4.8) Monocytes # (Auto) 1.3 x10^3/uL (0.0-1.1) 1.4 x10^3/uL (0.0-1.1) Eosinophils # (Auto) 0.1 x10^3/uL (0.0-0.7) 0.0 x10^3/uL (0.0-0.7) Basophils # (Auto) 0.0 x10^3/uL (0.0-0.2) 0.1 x10^3/uL (0.0-0.2) Assessment/Plan Assessment/Plan 7-year-old woman with a very complicated picture. She has had mesenteric artery bypass after failed mesenteric stent which showed a thrombosed without clear explanation and underwent successful open surgical thrombectomy. She has been on anticoagulation. She presents with apparently recurrent GI bleeding now down to hemoglobin of less than 5 improved to hemoglobin over 7 with transfusions. We have been asked to see her and comment on need for anticoagulationoverall she is at very high risk for graft thrombosis and bowel ischemia and with out any anticoagulation. Hopefully she can get very aggressive GI work-up including a repeat EGD colonos copy and even capsule endoscopy if necessary to diagnose and aggressively manage her causeof GI bleeding. Again, she is at significant risk for major complication and graft thrombosis and with no anticoagulation so long-term this is not a great option for her NADINE,REBECCA Moon MD Nov 03, 2020 14:26
[2020-11-03] MEDS: ATORVASTATIN CALCIUM 10 MG TABLET. PO SCH (21:03)
[2020-11-03] MEDS: ALLOPURINOL 300 MG TABLET. PO SCH (21:03)
[2020-11-04 03:04] VITALS: BP 123/59
[2020-11-04 07:00] VITALS: BP 110/49
[2020-11-04] MEDS: ESTRADIOL 1 MG TABLET. PO SCH (08:27)
[2020-11-04] MEDS: PIOGLITAZONE 15 MG TABLET. PO SCH (08:27)
[2020-11-04] MEDS: FUROSEMIDE 40 MG TABLET. PO SCH (08:27)
[2020-11-04] MEDS: PANTOPRAZOLE 40 MG TABLET.DR. PO SCH (08:28)
[2020-11-04] MEDS: DESMOPRESSIN 0.1 MG TABLET. PO SCH ×2 (08:28→20:10)
[2020-11-04] MEDS: POTASSIUM CHLORIDE 20 MEQ TABLET.ER. PO SCH (08:28)
[2020-11-04] MEDS: ASPIRIN ENTERIC COATED 81 MG TABLET.DR. PO SCH (08:28)
[2020-11-04] MEDS: RIVAROXABAN 10 MG TABLET. PO SCH (08:28)
[2020-11-04] MEDS: DULoxetine HCL 30 MG CAPSULE.DR PO SCH (08:28)
[2020-11-04 08:48] LABS: BASO # 0.1 x10^3/uL (0.0-0.2); BASO % 1 % (0-3); EOS # 0.2 x10^3/uL (0.0-0.7); EOS % 2 % (0-3); HEMATOCRIT 25.2 % (36.0-47.0); HEMOGLOBIN 7.9 g/dL (12.0-15.5); LYMPH # 0.9 x10^3/uL (1.0-4.8); LYMPH % 10 % (24-48); MEAN CORPUSCULAR HEMOGLOBIN 28 pg (25-35); MEAN CORPUSCULAR HGB CONC 31 g/dL (31-37); MEAN CORPUSCULAR VOLUME 88 fL (79-100); MONO # 1.1 x10^3/uL (0.0-1.1); MONO % 12 % (0-9); NEUT # 6.9 x10^3/uL (1.8-7.7); NEUT % 76 % (31-73); PLATELET COUNT 448 x10^3/uL (140-400); RED BLOOD COUNT 2.88 x10^6/uL (3.50-5.40); RED CELL DISTRIBUTION WIDTH 16.6 % (11.5-14.5); WHITE BLOOD COUNT 9.1 x10^3/uL (4.0-11.0)
[2020-11-04] MEDS ORDERED: FUROSEMIDE 40 MG/4 ML VIAL. IVP ONE (09:00)
[2020-11-04 09:03] LABS: CALCIUM 7.7 mg/dL (8.5-10.1); CREATININE 0.8 mg/dL (0.6-1.0); GFR 70.9; POTASSIUM 3.2 mmol/L (3.5-5.1)
--- NOTE | 2020-11-04 09:29 | HP ---
ADMIT DATE: 11/01/2020 CHIEF COMPLAINT AND HISTORY OF PRESENT ILLNESS: The patient ____ followup in the office. The patient ____ was admitted to telemetry ____. We were unable to stop her anticoagulation due to Vascular Surgery requesting that she cannot stop those due to clotting ____. We have tried DDAVP ____, but she is still being admitted ____. PAST MEDICAL HISTORY: As mentioned above. She also has diabetes ____. SOCIAL HISTORY: She remains ____ smoker, does not abuse alcohol or drugs. She is single, lives at home alone. FAMILY HISTORY: Noncontributory. REVIEW OF SYSTEMS: Remarkable for ____. PHYSICAL EXAMINATION: GENERAL: ____. NECK: Supple, without adenopathy or thyromegaly. CHEST: Clear to auscultation and percussion. HEART: Regular rate and rhythm without S3, S4 or murmur. ABDOMEN: Soft, nontender, without hepatosplenomegaly or mass. ____. IMPRESSION: 1. Recurrent gastrointestinal bleed with symptomatic anemia. 2. ____ above. PLAN: The patient has been admitted. She is on normal saline pending ____ she will be given 2 units of packed red blood cells with a repeat CBC in the morning and she may need a third prior to considering discharge ____. ANABEL MARTÍNEZ MD DR: IZA/heriberto JOB#: [id number] / [id number]
--- NOTE | 2020-11-04 09:55 | PDOC ---
PROGRESS NOTES Date of Service DATE: 11/04/20 TIME: 09:52 Subjective Subjective 70-year-old woman here with acute anemia status post transfusion and history of mesenteric artery bypass with thrombosis of set bypass without clear indication now on anticoagulation. As a follow-up from yesterday's note, I had another discussion with her today. In talking to her yesterday she was unclear about GI work-up but today tells me that she actually already did have a capsule endoscopy and that this apparently may have shown what sounds like an AVM in her small bowel. I am not sure I do not have these actual results. Apparently upper and lower endoscopy were unremarkable. Appreciate cardiology's note and recommendationsagree with their plan for anticoagulation. We have asked that hematology see her just to make sure that this is consistent with acute blood loss anemia and not some other or confounding cause for anemia (lysis not manufacturing blood cells etc. She is pending their recommendation she should probably be started on iron, I am not sure what the best solution is in this difficult situationobviously she has thrombosed her bypass graft without any underlying stenosis in the past which puts her at very high risk for rethrombosis and likely if she is off anticoagulation completely. This is difficult wrist to weigh against the fact that she has had repeated hospitalizations for anemia. I am not sure if it is possible to isolate these AVMs so that they could be resected by general surgery would have to ask GI and general surgery to potentially weigh in on this. Objective Objective Vital Signs Date Time Temp Pulse Resp B/P (MAP) Pulse Ox O2 Delivery O2 Flow Rate FiO2 11/04/20 08:00 Nasal Cannula 2.0 11/04/20 07:00 98.4 103 18 110/49 (69) 94 98.4 Intake and Output 11/04/20 07:00 Intake Total 1560 ml Balance 1560 ml Intake Oral 560 ml IV Total 1000 ml # Voids 2 Comment Review of Relevant I have reviewed the following items lucia (where applicable) has been applied. Labs Laboratory Tests Test 11/02/20 15:35 11/03/20 05:49 11/04/20 07:55 White Blood Count 11.6 x10^3/uL (4.0-11.0) 12.5 x10^3/uL (4.0-11.0) 9.1 x10^3/uL (4.0-11.0) Red Blood Count 2.06 x10^6/uL (3.50-5.40) 2.70 x10^6/uL (3.50-5.40) 2.88 x10^6/uL (3.50-5.40) Hemoglobin 5.8 g/dL (12.0-15.5) 7.5 g/dL (12.0-15.5) 7.9 g/dL (12.0-15.5) Hematocrit 18.2 % (36.0-47.0) 23.6 % (36.0-47.0) 25.2 % (36.0-47.0) Mean Corpuscular Volume 89 fL (79-100) 87 fL (79-100) 88 fL (79-100) Mean Corpuscular Hemoglobin 28 pg (25-35) 28 pg (25-35) 28 pg (25-35) Mean Corpuscular Hemoglobin Concent 32 g/dL (31-37) 32 g/dL (31-37) 31 g/dL (31-37) Red Cell Distribution Width 16.6 % (11.5-14.5) 16.0 % (11.5-14.5) 16.6 % (11.5-14.5) Platelet Count 395 x10^3/uL (140-400) 378 x10^3/uL (140-400) 448 x10^3/uL (140-400) Neutrophils (%) (Auto) 78 % (31-73) 82 % (31-73) 76 % (31-73) Lymphocytes (%) (Auto) 10 % (24-48) 6 % (24-48) 10 % (24-48) Monocytes (%) (Auto) 12 % (0-9) 11 % (0-9) 12 % (0-9) Eosinophils (%) (Auto) 0 % (0-3) 0 % (0-3) 2 % (0-3) Basophils (%) (Auto) 0 % (0-3) 1 % (0-3) 1 % (0-3) Neutrophils # (Auto) 9.0 x10^3/uL (1.8-7.7) 10.2 x10^3/uL (1.8-7.7) 6.9 x10^3/uL (1.8-7.7) Lymphocytes # (Auto) 1.2 x10^3/uL (1.0-4.8) 0.8 x10^3/uL (1.0-4.8) 0.9 x10^3/uL (1.0-4.8) Monocytes # (Auto) 1.3 x10^3/uL (0.0-1.1) 1.4 x10^3/uL (0.0-1.1) 1.1 x10^3/uL (0.0-1.1) Eosinophils # (Auto) 0.1 x10^3/uL (0.0-0.7) 0.0 x10^3/uL (0.0-0.7) 0.2 x10^3/uL (0.0-0.7) Basophils # (Auto) 0.0 x10^3/uL (0.0-0.2) 0.1 x10^3/uL (0.0-0.2) 0.1 x10^3/uL (0.0-0.2) Sodium Level 145 mmol/L (136-145) Potassium Level 3.2 mmol/L (3.5-5.1) Chloride Level 110 mmol/L (98-107) Carbon Dioxide Level 24 mmol/L (21-32) Anion Gap 11 (6-14) Blood Urea Nitrogen 17 mg/dL (7-20) Creatinine 0.8 mg/dL (0.6-1.0) Estimated GFR (Cockcroft-Gault) 70.9 Glucose Level 83 mg/dL (70-99) Calcium Level 7.7 mg/dL (8.5-10.1) Laboratory Tests Test 11/04/20 07:55 White Blood Count 9.1 x10^3/uL (4.0-11.0) Red Blood Count 2.88 x10^6/uL (3.50-5.40) Hemoglobin 7.9 g/dL (12.0-15.5) Hematocrit 25.2 % (36.0-47.0) Mean Corpuscular Volume 88 fL (79-100) Mean Corpuscular Hemoglobin 28 pg (25-35) Mean Corpuscular Hemoglobin Concent 31 g/dL (31-37) Red Cell Distribution Width 16.6 % (11.5-14.5) Platelet Count 448 x10^3/uL (140-400) Neutrophils (%) (Auto) 76 % (31-73) Lymphocytes (%) (Auto) 10 % (24-48) Monocytes (%) (Auto) 12 % (0-9) Eosinophils (%) (Auto) 2 % (0-3) Basophils (%) (Auto) 1 % (0-3) Neutrophils # (Auto) 6.9 x10^3/uL (1.8-7.7) Lymphocytes # (Auto) 0.9 x10^3/uL (1.0-4.8) Monocytes # (Auto) 1.1 x10^3/uL (0.0-1.1) Eosinophils # (Auto) 0.2 x10^3/uL (0.0-0.7) Basophils # (Auto) 0.1 x10^3/uL (0.0-0.2) Sodium Level 145 mmol/L (136-145) Potassium Level 3.2 mmol/L (3.5-5.1) Chloride Level 110 mmol/L (98-107) Carbon Dioxide Level 24 mmol/L (21-32) Anion Gap 11 (6-14) Blood Urea Nitrogen 17 mg/dL (7-20) Creatinine 0.8 mg/dL (0.6-1.0) Estimated GFR (Cockcroft-Gault) 70.9 Glucose Level 83 mg/dL (70-99) Calcium Level 7.7 mg/dL (8.5-10.1) Medications Current Medications Allopurinol (Zyloprim) 300 mg DAILY PO ; Start 11/01/20 at 11:00; Stop 11/02/20 at 08:16; Status DC Aspirin (Ecotrin) 325 mg DAILYWBKFT PO ; Start 11/01/20 at 11:00; Stop 11/01/20 at 18:48; Status DC Estradiol (Estrace) 1 mg DAILY PO Last administered on 11/04/20at 08:27; Start 11/01/20 at 11:00 Furosemide (Lasix) 40 mg DAILY PO Last administered on 11/03/20at 08:04; Start 11/01/20 at 11:00 Potassium Chloride (Klor-Con) 20 meq DAILY PO Last administered on 11/04/20at 08:28; Start 11/01/20 at 11:00 Rivaroxaban (Xarelto) 20 mg DAILYWBKFT PO Last administered on 11/04/20at 08:28; Start 11/01/20 at 11:00 Desmopressin Acetate (Ddavp) 0.2 mg BID PO Last administered on 11/04/20at 08:28; Start 11/01/20 at 11:00 Duloxetine HCl (Cymbalta) 60 mg DAILY PO Last administered on 11/04/20 08:28; Start 11/01/20 at 11:00 Pantoprazole Sodium (Protonix) 40 mg DAILYAC PO Last administered on 11/04/20 08:28; Start 11/01/20 at 11:00 Pioglitazone HCl (Actos) 30 mg DAILY PO Last administered on 11/04/20at 08:27; Start 11/01/20 at 11:00 Atorvastatin Calcium (Lipitor) 5 mg QHS PO Last administered on 11/03/20at 21:03; Start 11/01/20 at 21:00 Sodium Chloride 1,000 ml @ 80 mls/hr [id number] IV Last administered on 11/03/20at 21:07; Start 11/01/20 at 10:45 Info (Anti-Coagulation Monitoring By Pharmacy) 1 each PRN DAILY PRN MC SEE COMMENTS; Start 11/01/20 at 13:45 Aspirin (Ecotrin) 81 mg DAILYWBKFT PO Last administered on 11/04/20at 08:28; Start 11/02/20 at 08:00 Morphine Sulfate (Morphine Sulfate) 2 mg PRN Q4HRS PRN IV PAIN; Start 11/01/20 at 19:00 Metoprolol Tartrate (Lopressor Vial) 5 mg 1X ONCE IVP ; Start 11/01/20 at 19:00; Stop 11/01/20 at 19:01; Status DC Allopurinol (Zyloprim) 300 mg HS PO Last administered on 11/03/20at 21:03; Start 11/02/20 at 21:00 Furosemide (Lasix) 40 mg 1X ONCE IVP Last administered on 11/04/20at 08:54; Start 11/04/20 at 09:00; Stop 11/04/20 at 09:01; Status DC Active Scripts Active Estradiol 1 Mg Tablet 1 Tab PO DAILY Lasix (Furosemide) 40 Mg Tablet 1 Tab PO DAILY 30 Days Xarelto (Rivaroxaban) 10 Mg Tablet 20 Mg PO DAILYWBKFT 30 Days Aspirin Ec (Aspirin) 325 Mg Tablet.dr 325 Mg PO DAILYWBKFT 90 Days Reported Klor-Con M20 (Potassium Chloride) 20 Meq Tab.er.prt 20 Meq PO DAILY Desmopressin Acetate 0.2 Mg Tablet 1 Tab PO BID Protonix (Pantoprazole Sodium) 20 Mg Tablet.dr 40 Mg PO DAILY Actos (Pioglitazone Hcl) 30 Mg Tablet 30 Mg PO DAILY Pravastatin Sodium 20 Mg Tablet 20 Mg PO QHS Allopurinol 100 Mg Tablet 300 Mg PO DAILY Cymbalta (Duloxetine Hcl) 60 Mg Capsule.dr 60 Mg PO DAILY Vitals/I & O Vital Sign - Last 24 Hours 11/03/20 11/03/20 11/03/20 11/03/20 11:00 15:00 19:00 19:45 Temp 98.8 99.8 98.2 98.8 99.8 98.2 Pulse 108 103 107 Resp 16 16 20 B/P (MAP) 125/79 (94) 112/55 (74) 108/54 (72) Pulse Ox 90 91 96 O2 Delivery Nasal Cannula Nasal Cannula Nasal Cannula Nasal Cannula O2 Flow Rate 2.0 2.0 2.0 11/03/20 11/04/20 11/04/20 11/04/20 23:00 03:04 07:00 08:00 Temp 98.7 98.4 98.4 98.7 98.4 98.4 Pulse 97 93 103 Resp 18 18 18 B/P (MAP) 116/59 (78) 123/59 (80) 110/49 (69) Pulse Ox 91 96 94 O2 Delivery Nasal Cannula Nasal Cannula Nasal Cannula Nasal Cannula O2 Flow Rate 2.0 2.0 Intake and Output 11/03/20 11/03/20 11/04/20 15:00 23:00 07:00 Intake Total 260 ml 1300 ml Balance 260 ml 1300 ml Justifications for Admission Other Justification REBECCA MCCOY MD Nov 04, 2020 09:55
--- NOTE | 2020-11-04 10:12 | PN ---
DATE: 11/04/2020 SUBJECTIVE: This 70-year-old white female remains hospitalized after acute blood loss anemia that was severely symptomatic. She did have an elevated troponin with the same which Cardiology has blamed on, just the anemia and plan no further workup. She does tell me that she is concerned this morning because she was more short of breath and having difficulties lying down breathing. She normally feels better after the blood and hemoglobin, after 4 units was 7.5 and will be rechecked today, so we will do a chest x-ray and investigate further. OBJECTIVE: VITAL SIGNS: Stable. She is afebrile. GENERAL: She is awake and alert. CHEST: Reveals some decreased breath sounds, right lower lobe. HEART: Regular rate and rhythm. ABDOMEN: Benign. EXTREMITIES: Without cyanosis, clubbing or significant edema. IMPRESSION: 1. Shortness of breath and orthopnea. The patient with recent gastrointestinal bleed and fluid resuscitation, likely congestive heart failure related by symptomatology. 2. Vasculopathy. 3. Diabetes. PLAN: Recheck labs. We will give one dose of Lasix. Check a chest x-ray with further plans to follow based on findings there. ANABEL MARTÍNEZ MD DR: IZA/heriberto JOB#: [id number] / [id number]
[2020-11-04] MEDS: IV NORMAL SALINE 1000ML BAG 1,000 ML IV SCH ×2 (10:28→20:10)
[2020-11-04 11:00] VITALS: BP 123/60
--- NOTE | 2020-11-04 11:18 | NUR ---
SW following. Discussed with RN, pt from home, 2L, cardiac diet. Pt has new consults today. Attempting to determine reason for low hemoglobin. SW will continue to follow.
--- NOTE | 2020-11-04 12:47 | PDOC2 ---
GI CONSULT Date of Service: DATE: 11/04/20 TIME: 12:30 Reason For Consult: anemia, ?recurrent GI bleed, hx SMA bypass HPI: HPI: 70 y/o female who we've seen many many times. Admitted again on w/ anemia, also chest pain. To me, she reports 3 dark brown stools daily. Vascular following, cardiology as has seen, hematology asked to see. She denies reflux/heartburn, dysphagia, odynophagia, n/v, abd pain, diarrhea, constipation, change in appetite, weight loss, and hematochezia. Has chronic ELIDA/recurrent GI bleeding and need for transfusions - suspect combo of many SB AVMs + need for anticoagulation - no longer taking iron. H/o SMA bypass and thrombectomy, continued tobacco use, on Xarelto and ASA. Have previously discussed SB double balloon enteroscopy at [facility] - she's not interested. H/o GERD controlled w/ Protonix QD. EGD in 01/2019: gastritis. Colonoscopy 02/2019: ascending colon sessile polyp extending over entire fold (TA), sigmoid diverticulosis, internal hemorrhoids. SBCE 10/2019: many SB AVMs and some small ulcers. EGD 07/2020: small gastric ulcers (negative for H. pylori). Bleeding scan negative 07/2020. S/p lap right colectomy in 03/2019 - path c/w sessile TVA, no HGD or malignancy. No GB, liver, or pancreas history. PMH: PMH: CAD, HTN, HLD, PVD, DM, hypothyroidism, depression, OA, gout, seizure (related to HTN), UTI, thrombocytosis SMA stent and then bypass and then thrombectomy, LIH repair, LE stents, 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, bilateral knee replacements, cataract removal, right colon resection (for sessile tubulovillous adenoma) FH: Family History: No pertinent hx Social History: Smoke: <1 pack per day ALCOHOL: none Drugs: None ROS: GEN: Denies fevers, chills, sweats HEENT: Denies blurred vision, sore throat CV: Denies chest pain RESP: Denies shortness of air, cough GI: Per HPI : Denies hematuria, dysuria ENDO: Denies weight changes NEURO: Denies confusion, dizziness MSK: Denies weakness, joint pain/swelling SKIN: Denies jaundice, pruritus Vitals: Vitals: Vital Signs Date Time Temp Pulse Resp B/P (MAP) Pulse Ox O2 Delivery O2 Flow Rate FiO2 11/04/20 11:00 97.9 76 18 123/60 (81) Nasal Cannula 2.0 97.9 11/04/20 07:00 94 Labs: Labs: Laboratory Tests Test 11/04/20 07:55 White Blood Count 9.1 x10^3/uL (4.0-11.0) Red Blood Count 2.88 x10^6/uL (3.50-5.40) Hemoglobin 7.9 g/dL (12.0-15.5) Hematocrit 25.2 % (36.0-47.0) Mean Corpuscular Volume 88 fL (79-100) Mean Corpuscular Hemoglobin 28 pg (25-35) Mean Corpuscular Hemoglobin Concent 31 g/dL (31-37) Red Cell Distribution Width 16.6 % (11.5-14.5) Platelet Count 448 x10^3/uL (140-400) Neutrophils (%) (Auto) 76 % (31-73) Lymphocytes (%) (Auto) 10 % (24-48) Monocytes (%) (Auto) 12 % (0-9) Eosinophils (%) (Auto) 2 % (0-3) Basophils (%) (Auto) 1 % (0-3) Neutrophils # (Auto) 6.9 x10^3/uL (1.8-7.7) Lymphocytes # (Auto) 0.9 x10^3/uL (1.0-4.8) Monocytes # (Auto) 1.1 x10^3/uL (0.0-1.1) Eosinophils # (Auto) 0.2 x10^3/uL (0.0-0.7) Basophils # (Auto) 0.1 x10^3/uL (0.0-0.2) Sodium Level 145 mmol/L (136-145) Potassium Level 3.2 mmol/L (3.5-5.1) Chloride Level 110 mmol/L (98-107) Carbon Dioxide Level 24 mmol/L (21-32) Anion Gap 11 (6-14) Blood Urea Nitrogen 17 mg/dL (7-20) Creatinine 0.8 mg/dL (0.6-1.0) Estimated GFR (Cockcroft-Gault) 70.9 Glucose Level 83 mg/dL (70-99) Calcium Level 7.7 mg/dL (8.5-10.1) Allergies: Coded Allergies: shrimp (Verified Allergy, Intermediate, Rash, 08/07/20) Medications: Current Medications Medications (Trade) Dose Ordered Sig/Kira Route PRN Reason Start Time Stop Time Status Last Admin Dose Admin Furosemide (Lasix) 40 mg 1X ONCE IVP 11/04/20 09:00 11/04/20 09:01 DC 11/04/20 08:54 PE: GEN: NAD - has regular lunch tray - was talking on phone HEENT: Atraumatic, PERRL LUNGS: diminished HEART: RRR, ABD: NABS, S/ND/NT EXTREMITY: No edema SKIN: No rashes, no jaundice NEURO/PSYCH: A & O 3 A/P: A/P: Recurrent GI bleeding, anemia requiring transfusions - combo of many SB AVMs + need for anticoagulation - extensive workup as above, not interested in double balloon enteroscopy at - no longer taking iron H/o SMA bypass and thrombectomy +tobacco -- Not sure we have anything new to add - will d/w Dr. Jean. Have advised long-term iron in the past. She says she was advised to stop because she couldn't tell when she was bleeding because stools would always look dark. ELDA HUTTON Nov 04, 2020 12:47
[2020-11-04 15:00] VITALS: BP 117/50
--- NOTE | 2020-11-04 18:15 | RAD ---
EXAM: XR CHEST 2V 11/04/2020 2:05 PM CLINICAL INDICATION: Shortness of breath COMPARISON: Chest radiograph 10/13/2020 TECHNIQUE: PA and lateral views of the chest FINDINGS: The cardiomediastinal silhouette is stable. Lungs are adequately expanded. There are new d iffuse interstitial opacities, small right greater than left pleural effusions, and right basilar air space opacities. No pneumothorax. No acute osseous abnormality. IMPRESSION: Findings suspicious for new mild pulmonary edema with small right greater than left pleu ral effusions. Electronically signed by: Flavia Soto MD (11/04/2020 6:13 PM) [id number]
[2020-11-04 19:00] VITALS: BP 112/63
[2020-11-04] MEDS: ALLOPURINOL 300 MG TABLET. PO SCH (20:09)
[2020-11-04] MEDS: ATORVASTATIN CALCIUM 10 MG TABLET. PO SCH (20:09)
[2020-11-04 23:00] VITALS: BP 147/60
[2020-11-05 03:00] VITALS: BP 108/53
[2020-11-05] MEDS: PANTOPRAZOLE 40 MG TABLET.DR. PO SCH (05:42)
[2020-11-05 07:00] VITALS: BP 127/56
[2020-11-05 07:57] LABS: BASO # 0.1 x10^3/uL (0.0-0.2); BASO % 1 % (0-3); EOS # 0.4 x10^3/uL (0.0-0.7); EOS % 6 % (0-3); LYMPH # 0.9 x10^3/uL (1.0-4.8); LYMPH % 14 % (24-48); MEAN CORPUSCULAR VOLUME 87 fL (79-100); MONO # 0.9 x10^3/uL (0.0-1.1); MONO % 14 % (0-9); NEUT # 4.2 x10^3/uL (1.8-7.7); NEUT % 65 % (31-73)
--- NOTE | 2020-11-05 07:59 | PN ---
DATE: 11/05/2020 SUBJECTIVE: This 70-year-old white female remains hospitalized with acute GI bleeding. She has received 4 units of packed red blood cells since admission with a hemoglobin of 7.9 yesterday. She admits to a large melanotic stool overnight and we will recheck a CBC this morning. She had good diuresis with Lasix yesterday and her breathing is much better. Chest x-ray confirmed some fluid overload as the likely culprit. OBJECTIVE: VITAL SIGNS: Stable. She is afebrile. GENERAL: Awake and alert. CHEST: Decreased breath sounds. She is no longer short of breath, like she was yesterday morning. HEART: Regular. ABDOMEN: Benign. IMPRESSION: 1. Shortness of breath and orthopnea with fluid overload, improved with diuresis. 2. Gastrointestinal bleeding with symptomatic anemia. 3. Melena overnight. PLAN: Recheck CBC this morning. We will give another dose of Lasix along with some potassium as her potassium is 3.2 this morning and I have asked nursing to call me later this afternoon for possible discharge orders based on findings on the CBC and how she does through the day. ANABEL MARTÍNEZ MD DR: IZA/heriberto JOB#: [id number] / [id number]
[2020-11-05] MEDS ORDERED: POTASSIUM CHLORIDE 20 MEQ TABLET.ER. PO ONE (08:00)
[2020-11-05] MEDS ORDERED: FUROSEMIDE 40 MG/4 ML VIAL. IVP ONE (08:00)
[2020-11-05 08:03] LABS: HEMATOCRIT 23.1 % (36.0-47.0); HEMOGLOBIN 7.7 g/dL (12.0-15.5); MEAN CORPUSCULAR HEMOGLOBIN 29 pg (25-35); MEAN CORPUSCULAR HGB CONC 33 g/dL (31-37); PLATELET COUNT 462 x10^3/uL (140-400); RED BLOOD COUNT 2.67 x10^6/uL (3.50-5.40); WHITE BLOOD COUNT 6.3 x10^3/uL (4.0-11.0)
[2020-11-05] MEDS: ASPIRIN ENTERIC COATED 81 MG TABLET.DR. PO SCH (09:04)
[2020-11-05] MEDS: DESMOPRESSIN 0.1 MG TABLET. PO SCH (09:04)
[2020-11-05] MEDS: RIVAROXABAN 10 MG TABLET. PO SCH (09:05)
[2020-11-05] MEDS: POTASSIUM CHLORIDE 20 MEQ TABLET.ER. PO SCH (09:05)
[2020-11-05] MEDS: ESTRADIOL 1 MG TABLET. PO SCH (09:05)
[2020-11-05] MEDS: PIOGLITAZONE 15 MG TABLET. PO SCH (09:05)
[2020-11-05] MEDS: FUROSEMIDE 40 MG TABLET. PO SCH (09:06)
[2020-11-05] MEDS: DULoxetine HCL 30 MG CAPSULE.DR PO SCH (09:06)
--- NOTE | 2020-11-05 10:00 | PDOC ---
Date of Service: DATE: 11/05/20 TIME: 09:58 Subjective: Subjective: Feeling okay, says might DC today after more Lasix. Didn't talk about IV iron w/ Dr. Harry Loose stool - "dark." Objective: Vital Signs: Vital Signs Date Time Temp Pulse Resp B/P (MAP) Pulse Ox O2 Delivery O2 Flow Rate FiO2 11/05/20 07:00 97.8 88 17 127/56 (79) 92 Nasal Cannula 2.0 97.8 Labs: Laboratory Tests Test 11/05/20 06:35 White Blood Count 6.3 x10^3/uL Red Blood Count 2.67 x10^6/uL Hemoglobin 7.7 g/dL Hematocrit 23.1 % Mean Corpuscular Volume 87 fL Mean Corpuscular Hemoglobin 29 pg Mean Corpuscular Hemoglobin Concent 33 g/dL Red Cell Distribution Width 17.0 % Platelet Count 462 x10^3/uL Neutrophils (%) (Auto) 65 % Lymphocytes (%) (Auto) 14 % Monocytes (%) (Auto) 14 % Eosinophils (%) (Auto) 6 % Basophils (%) (Auto) 1 % Neutrophils # (Auto) 4.2 x10^3/uL Lymphocytes # (Auto) 0.9 x10^3/uL Monocytes # (Auto) 0.9 x10^3/uL Eosinophils # (Auto) 0.4 x10^3/uL Basophils # (Auto) 0.1 x10^3/uL PE: GEN: NAD LUNGS: diminished HEART: RRR ABD: NABS, S/ND/NT NEURO/PSYCH: A & O 3 A/P: Recurrent GI bleeding, anemia requiring transfusions - 2/2 many SB AVMs + anticoagulation H/o SMA bypass and thrombectomy -- Dc per primary, consider outpt IV iron. Justicifation of Admission Dx: Justifications for Admission: Justification of Admission Dx: Yes Sepsis: Infection ELDA HUTTON Nov 05, 2020 10:00
--- NOTE | 2020-11-05 10:20 | NUR ---
SW following. Discussed with RN, pt possibly could discharge later this afternoon, if doing okay. RN advised no SW needs at this time. Pt is a high risk readmission for recurrent bleeding. Per notes, pt is not wanting to follow up with [facility] for a procedure. SW will continue to follow.
[2020-11-05 11:00] VITALS: BP 112/53
--- NOTE | 2020-11-05 11:26 | PDOC2 ---
CONSULT Date of Consult Date of Consult DATE: 11/05/20 TIME: 11:11 Reason for Consult Reason for Consult: Anemia Referring Physician Referring Physician: Dr. Joaquin Identification/Chief Complaint Chief Complaint Fatigue Source Source: Caregiver, Chart review, Patient History of Present Illness Reason for Visit: Irene Bautista is a 70-year-old female with history of tobacco use, peripheral vascular disease, and recent medical history notable for superior mesenteric artery occlusive disease. In November 2019, she underwent a supraceliac aortic to superior mesenteric artery and hepatic artery bypass graft. She presented on 06/01/2020 with acute onset of abdominal pain that developed suddenly and radiated to all 4 quadrants. She was admitted to the hospital for further evaluation and management. She underwent a CT scan with IV contrast of her abdomen and pelvis, which shows complete thrombosis of her mesenteric artery bypass graft. There are no signs of bowel ischemia on this CAT scan. There is suggestion of possible left kidney infarct. She was taken to the operating room by Dr. Pinto emergently for exploratory laparotomy and removal of superior mesenteric artery graft thrombosis. She reports improvement in abdominal pain since then. She remains on a heparin infusion at the time of my evaluation. Review of her medical history shows that she had previously received stent placement with thrombosis of stent earlier in 2019. Graft placement was performed in November 2019. Patient denies a history of venous thrombosis or pulmonary embolism. She does report a history of bilateral lower extremity peripheral vascular disease that has required stent placement. She denies a family history of blood disorders or thrombosis. She does smoke 1 pack/day. She was seen by me during prior hospital visit in May 2020. Testing for antiphospholipid syndrome was requested at the time and was positive for lupus anticoagulant. She did not return to the office for follow-up appointments and attempts to reach her were unsuccessful. She has been admitted now with anemia secondary to chronic GI bleeding. She continues anticoagulation at this time with Xarelto. GI service has been consulted. She has received multiple EGDs and colonoscopy over the past few months. GI suspects that bleeding is secondary to AVMs. She has previously declined referral to for further management Past Medical History Cardiovascular: HTN, Hyperlipidemia, Other Pulmonary: COPD CENTRAL NERVOUS SYSTEM: Periperal neuropathy, TIA GI: GERD, GI bleed, Peptic Ulcer disease, Other Heme/Onc: Anemia NOS Psych: Anxiety, Depression Musculoskeletal: Osteoarthritis Rheumatologic: No pertinent hx Infectious disease: No pertinent hx Renal/: No pertinent hx, UTI Endocrine: Diabetes Past Surgical History Past Surgical History: Hernia Repair, Other Family History Family History: No Significant, Hypertension Social History <1 pack per day ALCOHOL: none Drugs: None Lives: with Family Current Medications Current Medications Current Medications Allopurinol (Zyloprim) 300 mg DAILY PO ; Start 11/01/20 at 11:00; Stop 11/02/20 at 08:16; Status DC Aspirin (Ecotrin) 325 mg DAILYWBKFT PO ; Start 11/01/20 at 11:00; Stop 11/01/20 at 18:48; Status DC Estradiol (Estrace) 1 mg DAILY PO Last administered on 11/05/20 09:05; Start 11/01/20 at 11:00 Furosemide (Lasix) 40 mg DAILY PO Last administered on 11/05/20at 09:06; Start 11/01/20 at 11:00 Potassium Chloride (Klor-Con) 20 meq DAILY PO Last administered on 11/05/20at 09:05; Start 11/01/20 at 11:00 Rivaroxaban (Xarelto) 20 mg DAILYWBKFT PO Last administered on 11/05/20at 09:05; Start 11/01/20 at 11:00 Desmopressin Acetate (Ddavp) 0.2 mg BID PO Last administered on 11/05/20at 09:04; Start 11/01/20 at 11:00 Duloxetine HCl (Cymbalta) 60 mg DAILY PO Last administered on 11/05/20at 09:06; Start 11/01/20 at 11:00 Pantoprazole Sodium (Protonix) 40 mg DAILYAC PO Last administered on 11/05/20at 05:42; Start 11/01/20 at 11:00 Pioglitazone HCl (Actos) 30 mg DAILY PO Last administered on 11/05/20 09:05; Start 11/01/20 at 11:00 Atorvastatin Calcium (Lipitor) 5 mg QHS PO Last administered on 11/04/20at 20:09; Start 11/01/20 at 21:00 Sodium Chloride 1,000 ml @ 80 mls/hr [id number] IV Last administered on 11/03/20at 21:07; Start 11/01/20 at 10:45 Info (Anti-Coagulation Monitoring By Pharmacy) 1 each PRN DAILY PRN MC SEE COMMENTS; Start 11/01/20 at 13:45 Aspirin (Ecotrin) 81 mg DAILYWBKFT PO Last administered on 11/05/20at 09:04; Start 11/02/20 at 08:00 Morphine Sulfate (Morphine Sulfate) 2 mg PRN Q4HRS PRN IV PAIN; Start 11/01/20 at 19:00 Metoprolol Tartrate (Lopressor Vial) 5 mg 1X ONCE IVP ; Start 11/01/20 at 19:00; Stop 11/01/20 at 19:01; Status DC Allopurinol (Zyloprim) 300 mg HS PO Last administered on 11/04/20at 20:09; Start 11/02/20 at 21:00 Furosemide (Lasix) 40 mg 1X ONCE IVP Last administered on 11/04/20at 08:54; Start 11/04/20 at 09:00; Stop 11/04/20 at 09:01; Status DC Potassium Chloride (Klor-Con) 40 meq 1X ONCE PO ; Start 11/05/20 at 08:00; Stop 11/05/20 at 08:01; Status DC Furosemide (Lasix) 40 mg 1X ONCE IVP Last administered on 11/05/20at 09:06; Start 11/05/20 at 08:00; Stop 11/05/20 at 08:01; Status DC Active Scripts Active Estradiol 1 Mg Tablet 1 Tab PO DAILY Lasix (Furosemide) 40 Mg Tablet 1 Tab PO DAILY 30 Days Xarelto (Rivaroxaban) 10 Mg Tablet 20 Mg PO DAILYWBKFT 30 Days Aspirin Ec (Aspirin) 325 Mg Tablet.dr 325 Mg PO DAILYWBKFT 90 Days Reported Klor-Con M20 (Potassium Chloride) 20 Meq Tab.er.prt 20 Meq PO DAILY Desmopressin Acetate 0.2 Mg Tablet 1 Tab PO BID Protonix (Pantoprazole Sodium) 20 Mg Tablet. 40 Mg PO DAILY Actos (Pioglitazone Hcl) 30 Mg Tablet 30 Mg PO DAILY Pravastatin Sodium 20 Mg Tablet 20 Mg PO QHS Allopurinol 100 Mg Tablet 300 Mg PO DAILY Cymbalta (Duloxetine Hcl) 60 Mg Capsule.dr 60 Mg PO DAILY Allergies Allergies: Coded Allergies: shrimp (Verified Allergy, Intermediate, Rash, 08/07/20) ROS General: YES: Fatigue, Malaise PSYCHOLOGICAL ROS: No: Irritablity, Memory difficulties Eyes: No Eye Pain, No Itchy Eyes HEENT: No: Oral lesions, Sinus pain ALLERGY AND IMMUNOLOGY: No: Nasal Congestion, Post Nasal Drip Hematological and Lymphatic: No: Brusing, Night Sweats ENDOCRINE: YES: Malaise/lethargy Respiratory: YES: Shortness of breath; No: Hemoptysis Cardiovascular: No Chest Pain, No Palpitations Gastrointestinal: No Nausea, No Vomiting, No Abdominal Pain Genitourinary: No Dysuria, No Frequency Musculoskeletal: No Joint Pain Neurological: No Behavorial Changes, No Bowel/Bladder ControlChng Skin: No Eczema, No Hair Changes Physical Exam General: Alert, Oriented X3 HEENT: Atraumatic Lungs: Clear to auscultation Heart: Normal S2 Abdomen: Normal bowel sounds, Soft Extremities: No clubbing Skin: No rashes Neuro: Normal speech Psych/Mental Status: Mental status NL MUSCULOSKELETAL: No joint tenderness, No swelling Vitals VITALS Vital Signs Date Time Temp Pulse Resp B/P (MAP) Pulse Ox O2 Delivery O2 Flow Rate FiO2 11/05/20 08:00 Nasal Cannula 2.0 11/05/20 07:00 97.8 88 17 127/56 (79) 92 97.8 Labs Labs Laboratory Tests Test 11/04/20 07:55 11/05/20 06:35 White Blood Count 9.1 x10^3/uL (4.0-11.0) 6.3 x10^3/uL (4.0-11.0) Red Blood Count 2.83 x10^6/uL (3.50-5.70) 2.67 x10^6/uL (3.50-5.40) Hemoglobin 7.9 g/dL (12.0-15.5) 7.7 g/dL (12.0-15.5) Hematocrit 25.2 % (36.0-47.0) 23.1 % (36.0-47.0) Mean Corpuscular Volume 88 fL (79-100) 87 fL (79-100) Mean Corpuscular Hemoglobin 28 pg (25-35) 29 pg (25-35) Mean Corpuscular Hemoglobin Concent 31 g/dL (31-37) 33 g/dL (31-37) Red Cell Distribution Width 16.6 % (11.5-14.5) 17.0 % (11.5-14.5) Platelet Count 448 x10^3/uL (140-400) 462 x10^3/uL (140-400) Neutrophils (%) (Auto) 76 % (31-73) 65 % (31-73) Lymphocytes (%) (Auto) 10 % (24-48) 14 % (24-48) Monocytes (%) (Auto) 12 % (0-9) 14 % (0-9) Eosinophils (%) (Auto) 2 % (0-3) 6 % (0-3) Basophils (%) (Auto) 1 % (0-3) 1 % (0-3) Neutrophils # (Auto) 6.9 x10^3/uL (1.8-7.7) 4.2 x10^3/uL (1.8-7.7) Lymphocytes # (Auto) 0.9 x10^3/uL (1.0-4.8) 0.9 x10^3/uL (1.0-4.8) Monocytes # (Auto) 1.1 x10^3/uL (0.0-1.1) 0.9 x10^3/uL (0.0-1.1) Eosinophils # (Auto) 0.2 x10^3/uL (0.0-0.7) 0.4 x10^3/uL (0.0-0.7) Basophils # (Auto) 0.1 x10^3/uL (0.0-0.2) 0.1 x10^3/uL (0.0-0.2) Absolute Reticulocyte Count 0.155 x10^6/uL (0.020-0.120) Percent Reticulocyte Count 5.5 % (0.5-2.3) Immature Reticulocyte Fraction 0.48 (0.20-0.60) Sodium Level 145 mmol/L (136-145) Potassium Level 3.2 mmol/L (3.5-5.1) Chloride Level 110 mmol/L (98-107) Carbon Dioxide Level 24 mmol/L (21-32) Anion Gap 11 (6-14) Blood Urea Nitrogen 17 mg/dL (7-20) Creatinine 0.8 mg/dL (0.6-1.0) Estimated GFR (Cockcroft-Gault) 70.9 Glucose Level 83 mg/dL (70-99) Calcium Level 7.7 mg/dL (8.5-10.1) Iron Level 9 ug/dL (50-170) Total Iron Binding Capacity 351 ug/dL (250-450) Iron Saturation 3 % (15-34) Ferritin 22 ng/mL (8-252) Vitamin B12 Level 490 pg/mL (247-911) Laboratory Tests Test 11/05/20 06:35 White Blood Count 6.3 x10^3/uL (4.0-11.0) Red Blood Count 2.67 x10^6/uL (3.50-5.40) Hemoglobin 7.7 g/dL (12.0-15.5) Hematocrit 23.1 % (36.0-47.0) Mean Corpuscular Volume 87 fL (79-100) Mean Corpuscular Hemoglobin 29 pg (25-35) Mean Corpuscular Hemoglobin Concent 33 g/dL (31-37) Red Cell Distribution Width 17.0 % (11.5-14.5) Platelet Count 462 x10^3/uL (140-400) Neutrophils (%) (Auto) 65 % (31-73) Lymphocytes (%) (Auto) 14 % (24-48) Monocytes (%) (Auto) 14 % (0-9) Eosinophils (%) (Auto) 6 % (0-3) Basophils (%) (Auto) 1 % (0-3) Neutrophils # (Auto) 4.2 x10^3/uL (1.8-7.7) Lymphocytes # (Auto) 0.9 x10^3/uL (1.0-4.8) Monocytes # (Auto) 0.9 x10^3/uL (0.0-1.1) Eosinophils # (Auto) 0.4 x10^3/uL (0.0-0.7) Basophils # (Auto) 0.1 x10^3/uL (0.0-0.2) Assessment/Plan Assessment/Plan Assessment: Antiphospholipid syndrome 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 Requested repeat testing for APS. To qualify for the diagnosis of APS, she would require histologic confirmation 12 weeks apart -Her clinical presentation with recurrent thrombosis despite adequate anticoagulation is highly suggestive of antiphospholipid syndrome -Xarelto and other direct acting anticoagulants are inferior to warfarin and low molecular weight heparin the treatment of patients with antiphospholipid syndrome, especially in patients with arterial thrombosis. I therefore chantel mmend switching her to Lovenox or warfarin. If warfarin is chosen, can bridge with either infusional heparin or Lovenox 1 mg/kg every 12 hours -Agree that her anemia is most likely secondary to iron deficiency from chronic GI bleeding. Would recommend IV iron replacement while inpatient with Venofer 300 mg today -We will arrange follow-up in hematology clinic in 4 weeks to reassess iron levels and continue IV iron infusions. Anticipate she would require ongoing parenteral iron replacement therapy. -Repeat EGD/colonoscopy per GI -Rest per Dr. Emani Miranda MD Medical Oncology/Hematology Ph: [phone] BRITTANY MIRANDA MD Nov 05, 2020 11:26
[2020-11-05] MEDS: IV NORMAL SALINE 1000ML BAG 1,000 ML IV SCH (12:07)
[2020-11-05] MEDS ORDERED: IRON SUCROSE COMPLEX 200 MG in IV NORMAL SALINE 100ML 100 ML IV ONE (14:30)
[2020-11-05 15:00] VITALS: BP 126/51
--- NOTE | 2020-11-05 17:08 | NUR ---
Discharge Note: PT DISCHARGED HOME WITH SELF CARE. PT LEFT FACILITY VIA PRIVATE VEHICLE WITH FRIEND AT 1700. PT STABLE AND ALERT UPON DISCHARGE. PT PIV REMOVED FROM L FA WITHOUT COMPLICATIONS, BANDAGE APPLIED. PT EDUCATED ABOUT DISCHARGE INSTRUCTIONS, DISCHARGE MEDICATIONS, AND FOLLOW-UP INSTRUCTIONS. PT VOICED NO CONCERNS AT THIS TIME. PT LEFT WITH ALL PERSONAL BELONGINGS. CHOCO YEH Discharge instructions and discharge home medications reviewed with Patient and a copy given. All questions have been answered and understanding verbalized.
[2020-11-08 08:10] LABS: CARDIOLIPIN ANTIBODIES SEE SEPARATE REPORT; LUPUS ANTICOAGULANT SEE SEPARATE REPORT
--- NOTE | 2020-12-03 23:58 | DS ---
DATE OF DISCHARGE: 11/05/2020 PRIMARY DIAGNOSIS: Gastrointestinal bleed with symptomatic anemia. 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 CHIEF COMPLAINT AND HISTORY OF PRESENT ILLNESS: This 70-year-old white female was admitted with symptomatic anemia. She also had an elevated troponin and was noted also to have a . SUMMARY OF STAY: The patient was admitted. Multiple consults were done including GI, Vascular Surgery, Heme/Onc and Cardiology. She was transfused with packed red blood cells. Her initial hemoglobin was 4.5 and was 7.7 on discharge. The rest of her cell lines were all within normal limits. Started by Hematology with prior lupus anticoagulant, but it should be repeated and felt she might have antiphospholipid syndrome. They felt Lovenox and warfarin were preferable to the novel anticoagulants as far as efficacy and thus transition was made at the time of discharge. She did develop some fluid overload due to fluid resuscitation and was diuresed with good results of the same. She left the hospital feeling at her baseline. DISPOSITION: The patient was discharged to home. DIET: ADA diet. ACTIVITY: As tolerated. FOLLOWUP: Office in 1 week. DISCHARGE MEDICATIONS: Listed on the med rec and addressed. ANABEL MARTÍNEZ MD DR: IZA/heriberto JOB#: [id number] / [id number]
[2021-02-13] MEDS ORDERED: ASPI325T8 PO (07:30)
--- NOTE | 2021-02-14 15:27 | PDOC1 ---
History & Physical: Date of Service: DOS: 11-01-2020 H&P: PATIENT: CHOCO YEH ACCOUNT: [id number] : 1950 LOC: [address] [place] [address] AGE: 70 SEX: F STATUS: ADM IN LOCATION: [address] [place] [address] ADMIT DATE: 11/01/2020 CHIEF COMPLAINT AND HISTORY OF PRESENT ILLNESS: The patient ____ followup in the office. The patient ____ was admitted to telemetry ____. We were unable to stop her anticoagulation due to Vascular Surgery requesting that she cannot stop those due to clotting ____. We have tried DDAVP ____, but she is still being admitted ____. PAST MEDICAL HISTORY: As mentioned above. She also has diabetes ____. SOCIAL HISTORY: She remains ____ smoker, does not abuse alcohol or drugs. She is single, lives at home alone. FAMILY HISTORY: Noncontributory. REVIEW OF SYSTEMS: Remarkable for ____. PHYSICAL EXAMINATION: GENERAL: ____. NECK: Supple, without adenopathy or thyromegaly. CHEST: Clear to auscultation and percussion. HEART: Regular rate and rhythm without S3, S4 or murmur. ABDOMEN: Soft, nontender, without hepatosplenomegaly or mass. ____. IMPRESSION: 1. Recurrent gastrointestinal bleed with symptomatic anemia. 2. ____ above. PLAN: The patient has been admitted. She is on normal saline pending ____ she will be given 2 units of packed red blood cells with a repeat CBC in the morning and she may need a third prior to considering discharge ____. ANABEL MARTÍNEZ MD DR: IZA/heriberto JOB#: [id number] / [id number] DICTATED BY: ANABEL MARTÍNEZ MD 11/01/20 1325 SIGNED BY: ANABEL MARTÍNEZ MD 11/05/20 1425 cc: ANABEL MARTÍNEZ MD ~MTF0 28 Page of ANABEL MARTÍNEZ MD Feb 14, 2021 15:27
== END 2020-11-05 17:00 | disposition home or self-care (01) | DRG 377 ==
LOC: 5 NORTH 09:53 → OBSVTOIN 17:20
PROVIDERS: ADMIT Family Medicine; ATTEND Family Medicine
PROC: 30233N1 Transfusion of Nonautologous Red Blood Cells into Peripheral Vein, Percutaneous Approach (ICD-10-PCS; principal; 2020-11-01)
DX: K92.2 Gastrointestinal hemorrhage, unspecified (principal); K55.069 Acute infarction of intestine, part and extent unspecified; I50.21 Acute systolic (congestive) heart failure; E43 Unspecified severe protein-calorie malnutrition; D62 Acute posthemorrhagic anemia; D68.61 Antiphospholipid syndrome; Q27.30 Arteriovenous malformation, site unspecified; D36.9 Benign neoplasm, unspecified site; E11.51 Type 2 diabetes mellitus with diabetic peripheral angiopathy without gangrene; E78.5 Hyperlipidemia, unspecified; E89.0 Postprocedural hypothyroidism; F17.210 Nicotine dependence, cigarettes, uncomplicated; F32.9 Major depressive disorder, single episode, unspecified; I11.0 Hypertensive heart disease with heart failure; Z82.49 Family history of ischemic heart disease and other diseases of the circulatory system; I25.10 Atherosclerotic heart disease of native coronary artery without angina pectoris; I50.9 Heart failure, unspecified; J44.9 Chronic obstructive pulmonary disease, unspecified; M10.9 Gout, unspecified; Z79.01 Long term (current) use of anticoagulants; Z86.73 Personal history of transient ischemic attack (TIA), and cerebral infarction without residual deficits; Z87.11 Personal history of peptic ulcer disease; Z96.653 Presence of artificial knee joint, bilateral; F41.9 Anxiety disorder, unspecified; K21.9 Gastro-esophageal reflux disease without esophagitis; M19.90 Unspecified osteoarthritis, unspecified site; Z79.899 Other long term (current) drug therapy
CPT/HCPCS: 36415; 71046; 80048; 80053; 82607; 82728; 83540; 83550; 84484; 85025; 85045; 85610; 86146; 86147; 86850; 86900; 86901; 86920; 93005; G0378; G0379; J1756; J1940; J7030; P9016

== ENCOUNTER 2020-11-16 08:33 | Inpatient (IN) | payer MEDICARE, MEDICAID ==
[~2020-11-16] VITALS: Ht 172.7 cm; Wt 76.0 kg
[2020-11-16] VITALS (16 sets, daily range): BP systolic 98–119; BP diastolic 39–68
[2020-11-16 10:16] LABS: BASO # 0.1 x10^3/uL (0.0-0.2); BASO % 2 % (0-3); EOS # 0.3 x10^3/uL (0.0-0.7); EOS % 5 % (0-3); LYMPH % 17 % (24-48); MEAN CORPUSCULAR HEMOGLOBIN 26 pg (25-35); MEAN CORPUSCULAR HGB CONC 31 g/dL (31-37); MEAN CORPUSCULAR VOLUME 86 fL (79-100); MONO # 0.7 x10^3/uL (0.0-1.1); MONO % 11 % (0-9); NEUT # 3.9 x10^3/uL (1.8-7.7); NEUT % 66 % (31-73); PLATELET COUNT 546 x10^3/uL (140-400); RED BLOOD COUNT 1.84 x10^6/uL (3.50-5.40); RED CELL DISTRIBUTION WIDTH 18.9 % (11.5-14.5)
[2020-11-16 10:24] LABS: CREATININE 0.8 mg/dL (0.6-1.0); GFR 70.9; POTASSIUM 3.2 mmol/L (3.5-5.1)
[2020-11-16 10:29] LABS: ALBUMIN 2.2 g/dL (3.4-5.0); ALBUMIN/GLOBULIN RATIO 0.7 (1.0-1.7); HEMATOCRIT 15.9 % (36.0-47.0); HEMOGLOBIN 4.9 g/dL (12.0-15.5); TOTAL BILIRUBIN 0.2 mg/dL (0.2-1.0); TOTAL PROTEIN 5.3 g/dL (6.4-8.2)
[2020-11-16] MEDS ORDERED: ANTI-COAG MONITOR BY PHARMACY. MC PRN (10:45)
[2020-11-16] MEDS ORDERED: C.DIFF MED SCREEN BY RX. MC ONE (12:15)
[2020-11-16] MEDS: RIVAROXABAN 10 MG TABLET. PO SCH (12:59)
[2020-11-16] MEDS: DULoxetine HCL 30 MG CAPSULE.DR PO SCH (13:00)
[2020-11-16] MEDS: DESMOPRESSIN 0.1 MG TABLET. PO SCH ×2 (13:00→20:22)
[2020-11-16] MEDS: PANTOPRAZOLE 40 MG TABLET.DR. PO SCH (13:00)
[2020-11-16] MEDS: ALLOPURINOL 100 MG TABLET. PO SCH (13:00)
[2020-11-16] MEDS: POTASSIUM CHLORIDE 20 MEQ TABLET.ER. PO SCH (13:01)
[2020-11-16] MEDS: ESTRADIOL 1 MG TABLET. PO SCH (13:01)
[2020-11-16] MEDS: PIOGLITAZONE 15 MG TABLET. PO SCH (13:01)
[2020-11-17] VITALS (13 sets, daily range): BP systolic 95–118; BP diastolic 41–56
[2020-11-17 00:05] LABS: HEMATOCRIT 20.5 % (36.0-47.0); HEMOGLOBIN 6.5 g/dL (12.0-15.5)
[2020-11-17] MEDS: DESMOPRESSIN 0.1 MG TABLET. PO SCH (08:33)
[2020-11-17] MEDS: DULoxetine HCL 30 MG CAPSULE.DR PO SCH (08:33)
[2020-11-17] MEDS: RIVAROXABAN 10 MG TABLET. PO SCH (08:33)
[2020-11-17] MEDS: ESTRADIOL 1 MG TABLET. PO SCH (08:33)
[2020-11-17] MEDS: ALLOPURINOL 100 MG TABLET. PO SCH (08:34)
[2020-11-17] MEDS: PIOGLITAZONE 15 MG TABLET. PO SCH (08:34)
[2020-11-17] MEDS: PANTOPRAZOLE 40 MG TABLET.DR. PO SCH (08:34)
[2020-11-17] MEDS: POTASSIUM CHLORIDE 20 MEQ TABLET.ER. PO SCH (08:34)
--- NOTE | 2020-11-17 08:42 | PDOC ---
Provider Note Date of Service: DATE: 11/17/20 TIME: 08:40 Provider Note [id number] Justifications for Admission Other Justification LAZARA POLLACK MD Nov 17, 2020 08:42
[2020-11-17 08:50] LABS: HEMATOCRIT 24.5 % (36.0-47.0); HEMOGLOBIN 7.9 g/dL (12.0-15.5)
--- NOTE | 2020-11-17 08:51 | HP ---
ADMIT DATE: CHIEF COMPLAINT: Recurrent anemia. HISTORY OF PRESENT ILLNESS: A 70-year-old white female was recently admitted about 2 weeks ago with severe anemia requiring 2 or 3 units of transfusion. The problem is she likely has a gastrointestinal source of bleeding as far as AV malformations, but for vascular reasons, particularly mesenteric artery, she has taken aspirin and Xarelto. She was admitted directly by Dr. Joaquin with the hemoglobin around 5 and orders have been given to transfuse at this point. She is sleeping currently. PAST MEDICAL HISTORY: Well documented in the old record. ALLERGIES: LISTED TO SHRIMP, BUT NO MEDS. FAMILY HISTORY: Unknown. SOCIAL HISTORY: Unknown. REVIEW OF SYSTEMS: Unremarkable per paperwork. OBJECTIVE: ENT: Very significant pallor, otherwise unremarkable. NECK: No masses, nodes or bruits. LUNGS: Clear. CARDIOVASCULAR: Grade 2 systemic flow murmur, but no unusual findings. ABDOMEN: Benign, nontender. EXTREMITIES: Pedal pulses are okay. Her skin is pale. Nailbeds are pale. No joint or skin lesions are seen. NEUROLOGIC: Physiologic and nonfocal. ASSESSMENT: Chronic recurrent anemia secondary to occult gastrointestinal bleeding exacerbated by anticoagulant therapy of aspirin and Xarelto. PLAN: As ordered. LAZARA POLLACK MD DR: SONIA/heriberto JOB#: [id number] / [id number]
[2020-11-17] MEDS ORDERED: ASPIRIN ENTERIC COATED 81 MG TABLET.DR. PO SCH (09:00)
[2020-11-17] MEDS ORDERED: PIOGLITAZONE HCL 30 MG PO SCH (09:00)
--- NOTE | 2020-11-17 09:02 | PDOC ---
Provider Note Date of Service: DATE: 11/17/20 TIME: 08:54 Provider Note HB NOW 6 SO MOre prbc ordered- last ad heme consult recommended WARFARIN over xarelto for antiphospholipid syndrome he feels she has, but home meds dont reflect that, she states she is on warf 5 mg daily, last dose 11/15- will give another dose today, can go home if hb > 8 Justifications for Admission Other Justification LAZARA POLLACK MD Nov 17, 2020 09:02
[2020-11-17 09:30] LABS: PROTHROMBIN TIME PATIENT 17.3 SEC (11.7-14.0)
[2020-11-17] MEDS ORDERED: WARF-31 PO (15:35)
[2020-11-17] MEDS ORDERED: ASPI81TA59 PO (15:36)
[2020-11-17 15:41] LABS: HEMOGLOBIN 9.4 g/dL (12.0-15.5)
[2020-11-17] MEDS ORDERED: WARFARIN 5 MG TABLET. PO ONE (16:00)
--- NOTE | 2020-11-17 16:45 | NUR ---
Discharge Note: Patient was discharged home with self care. Patients HH recheck after her unit of blood was above 8. Patients IV was discontinued without any complications per RN. Patient was given discharge summary/instructions, follow-ups, and educational material. Patient did not have any further questions or concerns. Patient anxious to be discharge. Patient was taken down to the ER entrance with all personal belongings accompanied by MICHAEL Simons, where patients car was sitting when she drove herself here on Wednesday.
[2020-11-17] MEDS ORDERED: POTASSIUM CHLORIDE 20 MEQ TABLET.ER. PO SCH (18:00)
--- NOTE | 2020-11-18 12:52 | DS ---
DATE OF DISCHARGE: 11/17/2020 HOSPITAL SUMMARY: The patient was readmitted with severe anemia, hemoglobin around 5 and has been in the hospital multiple times for this. She takes Lovenox, warfarin and aspirin for chronic thrombosis of mesenteric artery surgeries related to antiphospholipid syndrome. Her hemoglobin came up to about 8 after 3 units of packed red blood cells and she was comfortable to be followed as an outpatient at this point. INR was 1.5 on admission, indicating inadequate warfarin response. ASSESSMENT: 1. Recurrent anemia secondary to chronic GI bleeding. 2. Antiphospholipid syndrome and secondary anticoagulation. OPERATIONS, PROCEDURES, COMPLICATIONS, CONSULTATIONS: None. DISPOSITION: She will increase her warfarin to 7.5 mg daily and follow up with Dr. Joaquin in about 5 days for another INR. Low-dose aspirin and Lovenox continues as per Dr. Joaquin's prescription daily, iron twice a day. Rest of meds the same. PROGNOSIS: Guarded because of chronic recurrent bleeding of a severe nature, likely from small bowel, AV malformations. LAZARA POLLACK MD DR: SONIA/nts JOB#: [id number] / [id number]
[2021-02-13] MEDS ORDERED: ASPI325T8 PO (07:30)
== END 2020-11-17 16:45 | disposition home or self-care (01) | DRG 378 ==
LOC: 5 NORTH 08:33
PROVIDERS: ADMIT Family Medicine; ATTEND Family Medicine
PROC: 30233N1 Transfusion of Nonautologous Red Blood Cells into Peripheral Vein, Percutaneous Approach (ICD-10-PCS; principal; 2020-11-17)
DX: K92.2 Gastrointestinal hemorrhage, unspecified (principal); D68.61 Antiphospholipid syndrome; D50.0 Iron deficiency anemia secondary to blood loss (chronic); Z88.8 Allergy status to other drugs, medicaments and biological substances; Z91.013 Allergy to seafood; Z79.899 Other long term (current) drug therapy
CPT/HCPCS: 36415; 80053; 82962; 85014; 85018; 85025; 85610; 86850; 86900; 86901; 86920; P9016; G0378

== ENCOUNTER 2020-12-02 10:56 | Observation (INO) | payer MEDICARE, MEDICAID ==
[~2020-12-02] VITALS: Ht 172.7 cm; Wt 77.1 kg
[2020-12-02] VITALS (11 sets, daily range): BP systolic 84–182; BP diastolic 29–81
--- NOTE | 2020-12-02 10:54 | NUR ---
Direct admit through ER. Alert and oriented x's 4. No c/o at this time. Oriented to room and controls. Side rails up x's 1 with call light within reach. Discussed plan of care. Verbalized understanding. Cont. monitor.
[~2020-12-02 10:56] MED LIST changes: +ASPI81TA59 PO; +WARF-31 PO
[2020-12-02 12:34] LABS: PROTHROMBIN TIME PATIENT 29.3 SEC (11.7-14.0)
[2020-12-02 12:49] LABS: BASO # 0.1 x10^3/uL (0.0-0.2); BASO % 1 % (0-3); EOS # 0.3 x10^3/uL (0.0-0.7); EOS % 4 % (0-3); LYMPH # 1.4 x10^3/uL (1.0-4.8); LYMPH % 21 % (24-48); MEAN CORPUSCULAR HEMOGLOBIN 26 pg (25-35); MEAN CORPUSCULAR HGB CONC 31 g/dL (31-37); MEAN CORPUSCULAR VOLUME 84 fL (79-100); MONO # 0.6 x10^3/uL (0.0-1.1); MONO % 9 % (0-9); NEUT # 4.2 x10^3/uL (1.8-7.7); NEUT % 65 % (31-73); PLATELET COUNT 532 x10^3/uL (140-400); RED BLOOD COUNT 2.21 x10^6/uL (3.50-5.40); RED CELL DISTRIBUTION WIDTH 20.1 % (11.5-14.5); WHITE BLOOD COUNT 6.5 x10^3/uL (4.0-11.0)
[2020-12-02 12:52] LABS: HEMOGLOBIN 5.8 g/dL (12.0-15.5)
[2020-12-02 12:53] LABS: HEMATOCRIT 18.6 % (36.0-47.0)
--- NOTE | 2020-12-02 13:13 | HP ---
ADMIT DATE: 12/02/2020 ADMISSION HISTORY AND PHYSICAL CHIEF COMPLAINT AND HISTORY OF PRESENT ILLNESS: This 70-year-old white female is well known to me in followup in the office. 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 She was once again quite symptomatic on the day of admission, being short of breath, dizzy, lightheaded and weak. She was sent for stat CBC as well as type and cross and transfusion, which I am sure she is going to need. She has ongoing blood thinner needs and Vascular Surgery has felt we cannot stop them because of problems with mesenteric ischemia with an initial stenting with clotting of the same and eventual bypass of the vessels. PAST MEDICAL HISTORY: Remarkable for diabetes, COPD, prior TIA, peripheral arterial disease, mesenteric ischemia as noted above. MEDICATIONS: Brought with the patient, listed on the computer and have been addressed. ALLERGIES: INCLUDE SHRIMP. SOCIAL HISTORY: She continues to smoke on a daily basis, does not abuse alcohol or drugs. She is single, lives at home alone. FAMILY HISTORY: Noncontributory. REVIEW OF SYSTEMS: As mentioned above. PHYSICAL EXAMINATION: GENERAL: She is a well-developed, well-nourished white female, appearing quite pale. VITAL SIGNS: Blood pressure on admission is 110/45 with a pulse of 97. HEAD, EYES, EARS, NOSE AND THROAT: Remarkable for pallor of conjunctivae. NECK: Supple, without adenopathy or thyromegaly. CHEST: Reveals decreased breath sounds, but clear. HEART: Regular rate and rhythm. ABDOMEN: Soft, nontender, without hepatosplenomegaly or masses. EXTREMITIES: Without cyanosis, clubbing, edema. NEUROLOGIC: She is intact. IMPRESSION: Symptomatic anemia as outlined above. PLAN: Type cross and transfuse and reluctantly continue blood thinners, which Vascular Surgery have not let us stop. ANABEL MARTÍNEZ MD DR: IZA/heriberto JOB#: [id number] / [id number]
[2020-12-02] MEDS: WARFARIN 5 MG TABLET. PO SCH (16:00)
[2020-12-02] MEDS: DESMOPRESSIN 0.1 MG TABLET. PO SCH (20:55)
[2020-12-02] MEDS: ATORVASTATIN CALCIUM 10 MG TABLET. PO SCH (20:56)
--- NOTE | 2020-12-02 21:00 | NUR ---
Transfusion finished w/o reaction. BP 87/41. Patient states "that's about right." Denies being dizzy and SOA.
[2020-12-03] VITALS (10 sets, daily range): BP systolic 101–128; BP diastolic 37–52
[2020-12-03] MEDS ORDERED: PANTOPRAZOLE 40 MG TABLET.DR. PO SCH (07:30)
[2020-12-03 07:47] LABS: BASO # 0.1 x10^3/uL (0.0-0.2); BASO % 1 % (0-3); EOS # 0.3 x10^3/uL (0.0-0.7); EOS % 4 % (0-3); HEMATOCRIT 22.5 % (36.0-47.0); HEMOGLOBIN 7.1 g/dL (12.0-15.5); LYMPH # 1.3 x10^3/uL (1.0-4.8); LYMPH % 18 % (24-48); MEAN CORPUSCULAR HEMOGLOBIN 27 pg (25-35); MEAN CORPUSCULAR HGB CONC 32 g/dL (31-37); MEAN CORPUSCULAR VOLUME 85 fL (79-100); MONO # 0.5 x10^3/uL (0.0-1.1); MONO % 8 % (0-9); NEUT % 69 % (31-73); PLATELET COUNT 462 x10^3/uL (140-400); RED BLOOD COUNT 2.66 x10^6/uL (3.50-5.40); WHITE BLOOD COUNT 7.3 x10^3/uL (4.0-11.0)
[2020-12-03] MEDS ORDERED: PIOGLITAZONE 15 MG TABLET. PO SCH (09:00)
[2020-12-03] MEDS ORDERED: POTASSIUM CHLORIDE 20 MEQ TABLET.ER. PO SCH (09:00)
[2020-12-03] MEDS ORDERED: ALLOPURINOL 300 MG TABLET. PO SCH (09:00)
[2020-12-03] MEDS ORDERED: ASPIRIN CHEWABLE 81 MG TABLET. PO SCH (09:00)
[2020-12-03] MEDS ORDERED: FUROSEMIDE 40 MG TABLET. PO SCH (09:00)
[2020-12-03] MEDS ORDERED: DULoxetine HCL 30 MG CAPSULE.DR PO SCH (09:00)
[2020-12-03] MEDS ORDERED: ESTRADIOL 1 MG TABLET. PO SCH (09:00)
[2020-12-03] MEDS: DESMOPRESSIN 0.1 MG TABLET. PO SCH ×2 (09:40→20:43)
--- NOTE | 2020-12-03 14:37 | PN ---
DATE: 12/03/2020 DAILY PROGRESS NOTE LOCATION: She is in room 414. SUBJECTIVE: This 70-year-old white female remains hospitalized for symptomatic anemia. She has received 2 units of blood overnight and feels much better. OBJECTIVE: VITAL SIGNS: Stable. She is afebrile. CHEST: Clear. HEART: Regular. ABDOMEN: Benign. LABORATORY DATA: Hemoglobin this morning is 7.1 and given her history of recurrent bleeding, I am going to give her another unit of blood prior to discharge later today. IMPRESSION: Symptomatic anemia, improving with transfusion. PLAN: One more unit of packed red blood cells with discharge later on today. ANABEL MARTÍNEZ MD DR: IZA/heriberto JOB#: [id number] / [id number]
[2020-12-03] MEDS: WARFARIN 5 MG TABLET. PO SCH (18:22)
[2020-12-03] MEDS: ATORVASTATIN CALCIUM 10 MG TABLET. PO SCH (20:44)
--- NOTE | 2020-12-03 22:50 | NUR ---
Discharge Note: CHOCO YEH Discharge instructions and discharge home medications reviewed with Patient and a copy given. All questions have been answered and understanding verbalized. The following instructions and handouts were given: Medication list and Anemia patient education Discontinued lines and drains: intact. Patient discharged to home with self care via [facility] cab service
--- NOTE | 2020-12-04 01:53 | DS ---
DATE OF DISCHARGE: 12/03/2020 PRIMARY DIAGNOSIS: Symptomatic anemia. ADDITIONAL DIAGNOSES: Mesenteric ischemia, peripheral arterial disease, diabetes, chronic obstructive pulmonary disease. CHIEF COMPLAINT AND HISTORY OF PRESENT ILLNESS: This is a 70-year-old white female admitted with symptomatic anemia on the day of admission, hemoglobin was 5.8. SUMMARY OF STAY: The patient was admitted, typed, crossed total of 3 units of packed red blood cells, felt much better, was felt she could be dismissed. We have been in the process of changing her from Xarelto to Coumadin and she has been on Lovenox shots. Her INR was 2.8 with the recent increase the end of last week to 10 mg of Coumadin a day. I am going to back her off to 10 alternating with 7.5 on discharge and follow up INR in a week. She is discontinue her Lovenox at this point upon discharge. DISPOSITION: The patient is discharged to home. DIET: ADA diet. ACTIVITY: As tolerated. FOLLOWUP: Office in 1 week. DISCHARGE MEDICATIONS: Listed on the med rec and have been addressed. ANABEL MARTÍNEZ MD DR: IZA/heriberto JOB#: [id number] / [id number]
== END 2020-12-03 22:50 | disposition home or self-care (01) ==
LOC: 4 NORTH 10:56
PROVIDERS: ADMIT Family Medicine; ATTEND Family Medicine
DX: D64.9 Anemia, unspecified (principal); J44.9 Chronic obstructive pulmonary disease, unspecified; E11.51 Type 2 diabetes mellitus with diabetic peripheral angiopathy without gangrene; F17.200 Nicotine dependence, unspecified, uncomplicated; K55.059 Acute (reversible) ischemia of intestine, part and extent unspecified; I73.9 Peripheral vascular disease, unspecified; Z86.73 Personal history of transient ischemic attack (TIA), and cerebral infarction without residual deficits
CPT/HCPCS: 36415; 36430; 82962; 85025; 85610; 86850; 86900; 86901; 86920; G0378; G0379; P9016

== ENCOUNTER 2020-12-12 13:24 | Observation (INO) | payer MEDICARE, MEDICAID ==
[~2020-12-12] VITALS: Ht 170.2 cm; Wt 80.5 kg
[2020-12-12] VITALS (15 sets, daily range): BP systolic 82–113; BP diastolic 40–60
[2020-12-12] MEDS: IV NORMAL SALINE 1000ML BAG 1,000 ML IV SCH ×2 (14:00→23:29)
[2020-12-12 15:15] LABS: BASO # 0.1 x10^3/uL (0.0-0.2); BASO % 1 % (0-3); EOS % 0 % (0-3); LYMPH # 1.2 x10^3/uL (1.0-4.8); LYMPH % 16 % (24-48); MEAN CORPUSCULAR HEMOGLOBIN 26 pg (25-35); MEAN CORPUSCULAR HGB CONC 31 g/dL (31-37); MEAN CORPUSCULAR VOLUME 85 fL (79-100); MONO # 0.5 x10^3/uL (0.0-1.1); MONO % 7 % (0-9); NEUT # 5.6 x10^3/uL (1.8-7.7); NEUT % 76 % (31-73); PLATELET COUNT 462 x10^3/uL (140-400); RED BLOOD COUNT 1.51 x10^6/uL (3.50-5.40); RED CELL DISTRIBUTION WIDTH 18.6 % (11.5-14.5); WHITE BLOOD COUNT 7.4 x10^3/uL (4.0-11.0)
[2020-12-12 15:38] LABS: HEMOGLOBIN 3.9 g/dL (12.0-15.5)
[2020-12-12 15:39] LABS: HEMATOCRIT 12.8 % (36.0-47.0)
[2020-12-12 16:50] LABS: % BANDS 2 % (0-9); % BASOS 1 % (0-3); % LYMPHS 12 % (24-48); % MONOS 2 % (0-10); % SEGS 83 % (35-66); PLT ESTIMATE ADEQUATE (ADEQUATE)
[2020-12-12 16:51] LABS: ANISOCYTOSIS MOD; POIKILOCYTOSIS SLIGHT; POLYCHROMASIA PRESENT; SPHEROCYTES OCC
--- NOTE | 2020-12-12 17:03 | NUR ---
PT TRANSFERRED TO [facility]. REPORT GIVEN TO GUERDA. PT TAKEN VIA BED WITH BELONGINGS TO RM 211.
--- NOTE | 2020-12-12 17:56 | NUR ---
Pt tx from 4 by bed. Monitor applied. Vitals taken. Belongings in room with pt. Call light within reach, advised to call if any needs or questions. Will continue to monitor.
[2020-12-12 18:14] LABS: PROTHROMBIN TIME PATIENT 50.6 SEC (11.7-14.0)
--- NOTE | 2020-12-12 19:10 | NUR ---
Pt in bed assessment completed vss poc explained pt without pain. Pt first unit of prbc started will resume care and continue to monitor pt. Pt call light in reach.
--- NOTE | 2020-12-12 20:54 | NUR ---
Pt tolerated first unit of PRBC , Second unit of PRBC started will monitor pt.
[2020-12-12] MEDS: DESMOPRESSIN 0.1 MG TABLET. PO SCH (21:32)
[2020-12-12] MEDS: ATORVASTATIN CALCIUM 10 MG TABLET. PO SCH (21:32)
[2020-12-13] VITALS (15 sets, daily range): BP systolic 87–129; BP diastolic 43–61
[2020-12-13] MEDS: PANTOPRAZOLE 40 MG TABLET.DR. PO SCH (06:08)
[2020-12-13 08:19] LABS: BASO # 0.1 x10^3/uL (0.0-0.2); BASO % 2 % (0-3); EOS # 0.2 x10^3/uL (0.0-0.7); EOS % 4 % (0-3); LYMPH # 1.2 x10^3/uL (1.0-4.8); LYMPH % 22 % (24-48); MEAN CORPUSCULAR HEMOGLOBIN 28 pg (25-35); MEAN CORPUSCULAR HGB CONC 32 g/dL (31-37); MEAN CORPUSCULAR VOLUME 88 fL (79-100); MONO # 0.6 x10^3/uL (0.0-1.1); MONO % 12 % (0-9); NEUT # 3.4 x10^3/uL (1.8-7.7); NEUT % 61 % (31-73); PLATELET COUNT 361 x10^3/uL (140-400); RED BLOOD COUNT 2.18 x10^6/uL (3.50-5.40); RED CELL DISTRIBUTION WIDTH 16.4 % (11.5-14.5); WHITE BLOOD COUNT 5.6 x10^3/uL (4.0-11.0)
[2020-12-13 08:22] LABS: CALCIUM 7.7 mg/dL (8.5-10.1); CREATININE 0.7 mg/dL (0.6-1.0); GFR 82.7
[2020-12-13 08:25] LABS: POTASSIUM 2.8 mmol/L (3.5-5.1)
[2020-12-13 08:27] LABS: HEMATOCRIT 19.1 % (36.0-47.0); HEMOGLOBIN 6.1 g/dL (12.0-15.5)
[2020-12-13] MEDS: ESTRADIOL 1 MG TABLET. PO SCH (08:57)
[2020-12-13] MEDS: ASPIRIN CHEWABLE 81 MG TABLET. PO SCH (08:58)
[2020-12-13] MEDS: FUROSEMIDE 40 MG TABLET. PO SCH (08:58)
[2020-12-13] MEDS: ALLOPURINOL 300 MG TABLET. PO SCH (08:58)
[2020-12-13] MEDS: DESMOPRESSIN 0.1 MG TABLET. PO SCH ×2 (08:58→20:43)
[2020-12-13] MEDS: POTASSIUM CHLORIDE 20 MEQ TABLET.ER. PO SCH (08:59)
[2020-12-13] MEDS: PIOGLITAZONE 15 MG TABLET. PO SCH (08:59)
[2020-12-13] MEDS: DULoxetine HCL 30 MG CAPSULE.DR PO SCH (08:59)
[2020-12-13] MEDS ORDERED: WARFARIN 5 MG TABLET. PO SCH (09:00)
--- NOTE | 2020-12-13 10:56 | HP ---
ADMIT DATE: 12/13/2020 CHIEF COMPLAINT AND HISTORY OF PRESENT ILLNESS: This 70-year-old white female admitted for symptomatic anemia once again. Admission hemoglobin was 3.9. She has received 2 units of blood since I have seen, but this morning's hemoglobin pending. She has IV fluids running at 100 mL an hour and I have asked nursing to stop this with her last admission becoming fluid overloaded with transfusion and normal saline. PAST MEDICAL HISTORY: Well documented in old charts, includes diabetes, COPD, mesenteric ischemia, peripheral arterial disease, etc. MEDICATIONS: Brought with the patient, listed on computer, have been addressed as her allergies. SOCIAL HISTORY: She continues to smoke, is a nondrinker, does not use drugs. Single, lives at home alone. FAMILY HISTORY: Noncontributory. REVIEW OF SYSTEMS: Remarkable for the weakness, lightheadedness, shortness of breath with activity at the time of admission. PHYSICAL EXAMINATION: GENERAL: She is well-developed, well-nourished white female, in no acute distress, feels better after 2 units of blood. VITAL SIGNS: Stable. She is afebrile. HEAD, EYES, EARS, NOSE AND THROAT: Remarkable for pallor of the conjunctivae. NECK: Supple, without adenopathy or thyromegaly. CHEST: Reveals diminished breath sounds, but clear. HEART: Regular rate and rhythm without S3, S4 or murmur. ABDOMEN: Soft, nontender, without hepatosplenomegaly or mass. EXTREMITIES: Without cyanosis, clubbing or edema. NEUROLOGIC: She is intact. IMPRESSION: 1. Symptomatic anemia from recurrent gastrointestinal bleeding due to arteriovenous malformations of the small bowel was compounded by ongoing need for anticoagulation because of superior mesenteric occlusions after treatment. 2. Other problems listed above. PLAN: Repeat hemoglobin with further transfusion as needed. Otherwise, supportive care. ANABEL MARTÍNEZ MD DR: IZA/heriberto JOB#: [id number] / [id number]
[2020-12-13] MEDS ORDERED: POTASSIUM CHLORIDE 20 MEQ TABLET.ER. PO ONE (12:00)
--- NOTE | 2020-12-13 13:24 | NUR ---
SS following for discharge planning. SS reviewed pt chart and discussed with pt RN. Pt is from home and is currently on room air. Pt hemoglobin low (3.9 on admission) Pt receiving four units of blood today. Possible need for home healthcare at discharge. SS will continue to follow for discharge planning.
[2020-12-13] MEDS: ATORVASTATIN CALCIUM 10 MG TABLET. PO SCH (20:44)
[2020-12-14 03:00] VITALS: BP 103/46
[2020-12-14] MEDS: PANTOPRAZOLE 40 MG TABLET.DR. PO SCH (07:30)
[2020-12-14 07:53] VITALS: BP 112/45
[2020-12-14 08:43] LABS: BASO # 0.1 x10^3/uL (0.0-0.2); BASO % 1 % (0-3); EOS # 0.3 x10^3/uL (0.0-0.7); EOS % 4 % (0-3); HEMATOCRIT 23.3 % (36.0-47.0); HEMOGLOBIN 7.6 g/dL (12.0-15.5); LYMPH # 1.3 x10^3/uL (1.0-4.8); LYMPH % 15 % (24-48); MEAN CORPUSCULAR HEMOGLOBIN 29 pg (25-35); MEAN CORPUSCULAR HGB CONC 33 g/dL (31-37); MEAN CORPUSCULAR VOLUME 88 fL (79-100); MONO # 0.7 x10^3/uL (0.0-1.1); MONO % 9 % (0-9); NEUT # 6.2 x10^3/uL (1.8-7.7); NEUT % 72 % (31-73); PLATELET COUNT 336 x10^3/uL (140-400); RED BLOOD COUNT 2.64 x10^6/uL (3.50-5.40); RED CELL DISTRIBUTION WIDTH 16.2 % (11.5-14.5); WHITE BLOOD COUNT 8.6 x10^3/uL (4.0-11.0)
[2020-12-14 08:54] LABS: CALCIUM 7.6 mg/dL (8.5-10.1); CREATININE 0.8 mg/dL (0.6-1.0); GFR 70.9; POTASSIUM 3.6 mmol/L (3.5-5.1)
[2020-12-14 09:07] LABS: PROTHROMBIN TIME PATIENT 31.5 SEC (11.7-14.0)
[2020-12-14] MEDS: FUROSEMIDE 40 MG TABLET. PO SCH (09:08)
[2020-12-14] MEDS: ALLOPURINOL 300 MG TABLET. PO SCH (09:08)
[2020-12-14] MEDS: ASPIRIN CHEWABLE 81 MG TABLET. PO SCH (09:08)
[2020-12-14] MEDS: POTASSIUM CHLORIDE 20 MEQ TABLET.ER. PO SCH (09:08)
[2020-12-14] MEDS: PIOGLITAZONE 15 MG TABLET. PO SCH (09:08)
[2020-12-14] MEDS: DESMOPRESSIN 0.1 MG TABLET. PO SCH (09:08)
[2020-12-14] MEDS: DULoxetine HCL 30 MG CAPSULE.DR PO SCH (09:08)
[2020-12-14] MEDS: ESTRADIOL 1 MG TABLET. PO SCH (09:08)
[2020-12-14 10:06] VITALS: BP 100/50
--- NOTE | 2020-12-14 11:50 | NUR ---
Discharge Note: CHOCO YEH Discharge instructions and discharge home medications reviewed with Patient and a copy given. All questions have been answered and understanding verbalized. The following instructions and handouts were given: discharge instructions, follow up monitoring for Coumadin Discontinued lines and drains: peripheral IV discontinued, dressing clean, dry and intact. Patient discharged to home with family via wheelchair
--- NOTE | 2020-12-15 01:00 | DS ---
DATE OF DISCHARGE: 12/14/2020 PRIMARY DIAGNOSIS: Gastrointestinal bleed with symptomatic anemia. ADDITIONAL DIAGNOSES: Diabetes, chronic obstructive pulmonary disease, vasculopathy and hypokalemia. CHIEF COMPLAINT AND HISTORY OF PRESENT ILLNESS: This 70-year-old white female admitted with symptomatic anemia, lightheadedness, weakness and shortness of breath. SUMMARY OF STAY: The patient was admitted. Initial hemoglobin was 3.9. After transfusion of 4 units of packed red blood cells during the stay, her hemoglobin was 7.6 on discharge. She was initially profoundly hypokalemic with potassium of 2.8, this was replaced and was normal by the time of discharge at 3.6. She has been transitioned to warfarin therapy a couple of hospitalizations ago and INR was coagulopathic on admission at 5.4. Coumadin was held through the stay and was 3.0 on the day of discharge. She will decrease her warfarin dose back to 5 mg a day and restart it on the day after discharge, has followup this Wednesday, at which time we will recheck and give her an INR machine for home. She was symptomatically much improved, back to her normal and felt she could be dismissed on the day of discharge. DISPOSITION: The patient is discharged to home, ADA diet. ACTIVITY: As tolerated. OFFICE: Next Wednesday. DISCHARGE MEDICATIONS: Listed on med rec and have been addressed. ANABEL MARTNÍEZ MD DR: IZA/heriberto JOB#: [id number] / [id number]
== END 2020-12-14 11:50 | disposition home or self-care (01) ==
LOC: INTOOBSV 13:24 → 4 NORTH 13:24 → 2 NORTH 16:38
PROVIDERS: ADMIT Family Medicine; ATTEND Family Medicine
DX: D64.9 Anemia, unspecified (principal); K92.2 Gastrointestinal hemorrhage, unspecified; Q27.30 Arteriovenous malformation, site unspecified; J44.9 Chronic obstructive pulmonary disease, unspecified; E11.51 Type 2 diabetes mellitus with diabetic peripheral angiopathy without gangrene; K55.20 Angiodysplasia of colon without hemorrhage; I73.9 Peripheral vascular disease, unspecified; E87.6 Hypokalemia; F17.200 Nicotine dependence, unspecified, uncomplicated
CPT/HCPCS: 36415; 36430; 80048; 82962; 85007; 85025; 85610; 86850; 86900; 86901; 86920; 96360; 96361; G0378; G0379; J7030; P9016

== ENCOUNTER 2020-12-29 21:23 | Observation (INO) | payer MEDICARE, MEDICAID ==
[~2020-12-29] VITALS: Ht 172.7 cm; Wt 80.0 kg
[2020-12-29] MEDS ORDERED: ACETAMINOPHEN 325 MG TABLET. PO ONE (21:45)
[2020-12-29] MEDS ORDERED: IBUPROFEN 400 MG TABLET. PO ONE (21:45)
--- NOTE | 2020-12-29 21:45 | EKG ---
[facility] [address] [place] [address] Test Date: 2020-12-29 Test Time: 21:41:29 Pat Name: CHOCO YEH Department: Room: Gender: F Application Internship: : 1950 Requested By: PILI MACHADO Order Number: [id number] Reading MD: Measurements Intervals Starbuck Rate: 96 P: 41 IN: 136 QRS: 64 QRSD: 94 T: 128 QT: 332 QTc: 426 Interpretive Statements SINUS RHYTHM ATRIAL PREMATURE COMPLEX(ES) ST & T ABNORMALITY, CONSIDER ANTERIOR ISCHEMIA OR LEFT VENTRICULAR STRAIN INFEROLATERAL ISCHEMIA OR LEFT VENTRICULAR STRAIN ABNORMAL ECG RI6.02 No previous ECG available for comparison
--- NOTE | 2020-12-29 21:53 | RAD ---
AP chest x-ray HISTORY: Syncope. COMPARISON: Chest x-ray November 04, 2020. FINDINGS: Borderline cardiomegaly is stable. Mediastinal silhouette is normal. No pneumothorax, pulmo nary opacities or pleural effusions. The bones are unremarkable. IMPRESSION: No acute process. Electronically signed by: Brett Guzman MD (12/29/2020 9:51 PM) [facility]
--- NOTE | 2020-12-29 22:01 | PHYS DOC ---
Past Medical History Past Medical History: Anemia, Arthritis, Asthma, COPD, Diabetes-Type II, GERD, GI Bleed, High Cholesterol, TIA, Other Additional Past Medical Histor: CATARACTS, MACULAR DEGENERATION, NEUROPATHY Past Surgical History: Knee Replacement, Other Additional Past Surgical Histo: STENT TO BLE, PARTIAL THYROID, L INGUINAL HERNIA, ABDOMINAL SX X 2, BX KNEE Smoking Status: Current Every Day Smoker Alcohol Use: None Adult General Chief Complaint Chief Complaint: ANEMIA HPI HPI Patient is a 70 year old female with an extensive past medical history which does include chronic anemia requiring multiple transfusions now presenting to the emergency department due to new onset of dizziness and fatigue. Patient states that she has been feeling weak for the last 24 hours and did have an episode of left anterior chest pain this morning. Patient states she called ahead to her primary care physician who recommended her come to the emergency department for evaluation. Patient denies any fever, chills, nausea, vomiting, dizziness or lightheadedness. Currently without chest pain Review of Systems Review of Systems Constitutional: Denies fever or chills [] Eyes: Denies change in visual acuity, redness, or eye pain [] HENT: Denies nasal congestion or sore throat [] Respiratory: Denies cough or shortness of breath [] Cardiovascular: No additional information not addressed in HPI [] GI: Denies abdominal pain, nausea, vomiting, bloody stools or diarrhea [] : Denies dysuria or hematuria [] Musculoskeletal: Denies back pain or joint pain [] Integument: Denies rash or skin lesions [] Neurologic: Denies headache, focal weakness or sensory changes [] Endocrine: Denies polyuria or polydipsia [] All other systems were reviewed and found to be within normal limits, except as documented in this note. Current Medications Current Medications Current Medications Medications (Trade) Dose Ordered Sig/Kira Start Time Stop Time Status Last Admin Dose Admin Acetaminophen (Tylenol) 650 mg 1X ONCE 12/29/20 21:45 12/29/20 21:46 DC Ibuprofen (Motrin) 800 mg 1X ONCE 12/29/20 21:45 12/29/20 21:46 DC Allergies Allergies Allergies Coded Allergies Type Severity Reaction Last Updated Verified shrimp Allergy Intermediate Rash 08/07/20 Yes Physical Exam Physical Exam Constitutional: Well developed, well nourished, no acute distress, non-toxic appearance. [] HENT: Normocephalic, atraumatic, bilateral external ears normal, oropharynx moist, no oral exudates, nose normal. [] Eyes: PERRLA, EOMI, conjunctiva normal, no discharge. [] Neck: Normal range of motion, no tenderness, supple, no stridor. [] Cardiovascular:Heart rate regular rhythm, no murmur [] Lungs & Thorax: Bilateral breath sounds clear to auscultation [] Abdomen: Bowel sounds normal, soft, no tenderness, no masses, no pulsatile masses. [] Skin: Warm, dry, no erythema, no rash. [] Back: No tenderness, no CVA tenderness. [] Extremities: No tenderness, no cyanosis, no clubbing, ROM intact, no edema. [] Neurologic: Alert and oriented X 3, normal motor function, normal sensory function, no focal deficits noted. [] Psychologic: Affect normal, judgement normal, mood normal. [] Current Patient Data Vital Signs Vital Signs Date Time Temp Pulse Resp B/P (MAP) Pulse Ox O2 Delivery O2 Flow Rate FiO2 12/29/20 21:38 99.0 101 18 116/55 (75) 96 Room Air 99.0 Lab Values Laboratory Tests Test 12/29/20 21:50 White Blood Count 5.9 x10^3/uL (4.0-11.0) Red Blood Count 1.81 x10^6/uL (3.50-5.40) L Hemoglobin 4.7 g/dL (12.0-15.5) *L Hematocrit 15.2 % (36.0-47.0) *L Mean Corpuscular Volume 84 fL (79-100) Mean Corpuscular Hemoglobin 26 pg (25-35) Mean Corpuscular Hemoglobin Concent 31 g/dL (31-37) Red Cell Distribution Width 18.9 % (11.5-14.5) H Platelet Count 507 x10^3/uL (140-400) H Neutrophils (%) (Auto) 60 % (31-73) Lymphocytes (%) (Auto) 26 % (24-48) Monocytes (%) (Auto) 10 % (0-9) H Eosinophils (%) (Auto) 3 % (0-3) Basophils (%) (Auto) 1 % (0-3) Neutrophils # (Auto) 3.6 x10^3/uL (1.8-7.7) Lymphocytes # (Auto) 1.5 x10^3/uL (1.0-4.8) Monocytes # (Auto) 0.6 x10^3/uL (0.0-1.1) Eosinophils # (Auto) 0.2 x10^3/uL (0.0-0.7) Basophils # (Auto) 0.1 x10^3/uL (0.0-0.2) Segmented Neutrophils % 70 % (35-66) H Lymphocytes % 20 % (24-48) L Monocytes % 8 % (0-10) Eosinophils % 1 % (0-5) Basophils % 1 % (0-3) Nucleated Red Blood Cells 1 Platelet Estimate Increased (ADEQUATE) Giant Platelets Occ Polychromasia Slight Anisocytosis Slight Tear Drop Cells Occ Sodium Level 142 mmol/L (136-145) Potassium Level 3.2 mmol/L (3.5-5.1) L Chloride Level 105 mmol/L (98-107) Carbon Dioxide Level 29 mmol/L (21-32) Anion Gap 8 (6-14) Blood Urea Nitrogen 35 mg/dL (7-20) H Creatinine 1.0 mg/dL (0.6-1.0) Estimated GFR (Cockcroft-Gault) 54.8 BUN/Creatinine Ratio 35 (6-20) H Glucose Level 132 mg/dL (70-99) H Calcium Level 8.0 mg/dL (8.5-10.1) L Magnesium Level 1.8 mg/dL (1.8-2.4) Total Bilirubin 0.2 mg/dL (0.2-1.0) Aspartate Amino Transferase (AST) 10 U/L (15-37) L Alanine Aminotransferase (ALT) 16 U/L (14-59) Alkaline Phosphatase 88 U/L (46-116) Troponin I Quantitative < 0.017 ng/mL (0.000-0.055) Total Protein 5.8 g/dL (6.4-8.2) L Albumin 2.5 g/dL (3.4-5.0) L Albumin/Globulin Ratio 0.8 (1.0-1.7) L Laboratory Tests 12/29/20 21:50 Laboratory Tests 12/29/20 21:50 EKG EKG [] Radiology/Procedures Radiology/Procedures [] Course & Med Decision Making Course & Med Decision Making Pertinent Labs and Imaging studies reviewed. (See chart for details) 70F presenting emergency department with dizziness and due to concern for acute anemia. Will obtain ACS work-up and block as well as type and screen for anticipated need for transfusion. Patient hemoglobin noted to be 4.7. Will admit the patient for acute anemia and initiate transfusion in the emergency department Dragon Disclaimer Dragon Disclaimer This electronic medical record was generated, in whole or in part, using a voice recognition dictation system. Departure Departure Impression: Primary Impression: Anemia Disposition: ADMITTED INPT THIS HOSP Condition: GOOD Referrals: ANABEL MARTÍNEZ MD (PCP) PILI MACHADO MD Dec 29, 2020 22:01
[2020-12-29 22:06] LABS: BASO # 0.1 x10^3/uL (0.0-0.2); BASO % 1 % (0-3); EOS # 0.2 x10^3/uL (0.0-0.7); EOS % 3 % (0-3); LYMPH # 1.5 x10^3/uL (1.0-4.8); LYMPH % 26 % (24-48); MEAN CORPUSCULAR HEMOGLOBIN 26 pg (25-35); MEAN CORPUSCULAR HGB CONC 31 g/dL (31-37); MEAN CORPUSCULAR VOLUME 84 fL (79-100); MONO # 0.6 x10^3/uL (0.0-1.1); MONO % 10 % (0-9); NEUT # 3.6 x10^3/uL (1.8-7.7); NEUT % 60 % (31-73); PLATELET COUNT 507 x10^3/uL (140-400); RED BLOOD COUNT 1.81 x10^6/uL (3.50-5.40); RED CELL DISTRIBUTION WIDTH 18.9 % (11.5-14.5); WHITE BLOOD COUNT 5.9 x10^3/uL (4.0-11.0)
[2020-12-29 22:10] LABS: HEMATOCRIT 15.2 % (36.0-47.0); HEMOGLOBIN 4.7 g/dL (12.0-15.5)
[2020-12-29 22:15] LABS: GFR 54.8; POTASSIUM 3.2 mmol/L (3.5-5.1)
[2020-12-29 22:21] LABS: ALBUMIN 2.5 g/dL (3.4-5.0); ALBUMIN/GLOBULIN RATIO 0.8 (1.0-1.7); MAGNESIUM 1.8 mg/dL (1.8-2.4); TOTAL BILIRUBIN 0.2 mg/dL (0.2-1.0); TOTAL PROTEIN 5.8 g/dL (6.4-8.2)
[2020-12-29 22:38] LABS: % BASOS 1 % (0-3); % EOS 1 % (0-5); % LYMPHS 20 % (24-48); % MONOS 8 % (0-10); % SEGS 70 % (35-66); NUCLEATED RBC 1; PLT ESTIMATE INCREASED (ADEQUATE)
[2020-12-29 22:39] LABS: ANISOCYTOSIS SLIGHT; POLYCHROMASIA SLIGHT; TEAR DROP CELLS OCC
[2020-12-29] MEDS ORDERED: ONDANSETRON PF 4 MG/2 ML VIAL. IV PRN (23:00)
[2020-12-29 23:43] VITALS: BP 114/56
[2020-12-29 23:58] VITALS: BP 110/59
[2020-12-30] VITALS (16 sets, daily range): BP systolic 85–131; BP diastolic 34–56
[2020-12-30] MEDS ORDERED: PANTOPRAZOLE 40 MG TABLET.DR. PO SCH (08:00)
[2020-12-30] MEDS ORDERED: PIOGLITAZONE 15 MG TABLET. PO SCH (09:00)
[2020-12-30] MEDS ORDERED: C.DIFF MED SCREEN BY RX. MC ONE (09:00)
[2020-12-30] MEDS ORDERED: POTASSIUM CHLORIDE 20 MEQ TABLET.ER. PO SCH (09:00)
[2020-12-30] MEDS ORDERED: DESMOPRESSIN 0.1 MG TABLET. PO SCH (09:00)
[2020-12-30] MEDS ORDERED: DULoxetine HCL 30 MG CAPSULE.DR PO SCH (09:00)
[2020-12-30] MEDS ORDERED: ALLOPURINOL 300 MG TABLET. PO SCH (09:00)
[2020-12-30] MEDS ORDERED: ESTRADIOL 1 MG TABLET. PO SCH (09:00)
[2020-12-30] MEDS ORDERED: ASPIRIN CHEWABLE 81 MG TABLET. PO SCH (09:00)
[2020-12-30] MEDS ORDERED: FUROSEMIDE 40 MG TABLET. PO SCH (09:00)
--- NOTE | 2020-12-30 09:15 | HP ---
ADMIT DATE: 12/30/2020 CHIEF COMPLAINT AND HISTORY OF PRESENT ILLNESS: This 70-year-old white female is well known to me, followup in the office. The patient called late afternoon, evening on the day of admission stating that she was weak, short of breath, lightheaded, she was anemic once again. She was directed to the Emergency Room where her hemoglobin was found to be 4.7 and the patient was admitted, has received 2 units of packed red blood cells overnight, feels much better by the time of my examination, but no further lab has been checked. She will need CBC with further blood products if hemoglobin is 7-7.5 or less and we will need an INR checked as she has been taking warfarin to make sure that she is not coagulopathic. PAST MEDICAL HISTORY: Well documented on old charts, does include COPD, diabetes, recurrent GI bleeding, peripheral arterial disease, mesenteric ischemia with stenting and bypass and prior TIA. PAST SURGICAL HISTORY: Remarkable for knee replacement and mesenteric bypass. She has had stenting of both lower extremities. She has had a partial 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 and left inguinal hernia repair. MEDICATIONS: Brought with the patient, listed on the computer and have been addressed. ALLERGIES: SHE IS ALLERGIC TO SHRIMP. SOCIAL HISTORY: She continues to smoke on a daily basis, does not use alcohol or drugs. She is single. FAMILY HISTORY: Noncontributory. REVIEW OF SYSTEMS: As mentioned above. PHYSICAL EXAMINATION: GENERAL: She is a well-developed, well-nourished white female, in no acute distress by the time of my examination. VITAL SIGNS: Stable. She is afebrile. Blood pressures are still on the lower end, which is not necessarily unusual for her without problems. HEAD, EYES, EARS, NOSE AND THROAT: Remarkable for pallor of the conjunctivae. NECK: Supple without adenopathy or thyromegaly. CHEST: Reveals decreased breath sounds, but clear. HEART: Regular rate and rhythm without S3, S4 or murmur. ABDOMEN: Soft and nontender without hepatosplenomegaly or mass. EXTREMITIES: Without cyanosis, clubbing or edema. NEUROLOGIC: She is intact. IMPRESSION: 1. Symptomatic anemia with recurrent GI bleeding and lady on anticoagulation therapy due to prior mesenteric problems with Vascular Surgery not wanting that to stop. 2. Other problems listed above. PLAN: Check INR and CBC. Likely, will need another unit of packed red blood cells with discharge later today. ANABEL MARTÍNEZ MD DR: IZA/heriberto JOB#: [id number] / [id number]
[2020-12-30 10:25] LABS: BASO # 0.1 x10^3/uL (0.0-0.2); BASO % 1 % (0-3); EOS # 0.2 x10^3/uL (0.0-0.7); EOS % 3 % (0-3); LYMPH # 0.9 x10^3/uL (1.0-4.8); LYMPH % 14 % (24-48); MEAN CORPUSCULAR HEMOGLOBIN 27 pg (25-35); MEAN CORPUSCULAR HGB CONC 31 g/dL (31-37); MEAN CORPUSCULAR VOLUME 86 fL (79-100); MONO # 0.6 x10^3/uL (0.0-1.1); MONO % 10 % (0-9); NEUT # 4.8 x10^3/uL (1.8-7.7); NEUT % 72 % (31-73); PLATELET COUNT 428 x10^3/uL (140-400); RED BLOOD COUNT 2.41 x10^6/uL (3.50-5.40); WHITE BLOOD COUNT 6.6 x10^3/uL (4.0-11.0)
[2020-12-30 10:40] LABS: CALCIUM 7.7 mg/dL (8.5-10.1); CREATININE 0.7 mg/dL (0.6-1.0); GFR 82.7; POTASSIUM 4.1 mmol/L (3.5-5.1)
[2020-12-30 10:42] LABS: HEMATOCRIT 20.7 % (36.0-47.0); HEMOGLOBIN 6.5 g/dL (12.0-15.5)
--- NOTE | 2020-12-30 10:49 | NUR ---
critical Hgb of 6.[address] Joaquin. new orders for 1 unit RBC followed by CBC and hold today's warfarin dose.
--- NOTE | 2020-12-30 12:18 | NUR ---
Pharmacy Medication Review S: Consulted for medication review re: C.diff Risk Assessment score of 5 O: CHOCO YEH is a 70 year old with: Previous C.diff infection: No Previous hospitalization: Within 30 days Recent antibiotics: No Use of gastric acid suppressor: Yes Transfer from [place]/LTAC: No Current antibiotic regimen: NONE Current acid suppression regimen: PANTOPRAZOLE A: Patient has been identified as having risk factors for C.diff infection as noted above. P: ABX DE-ESCALATION RECOMMENDED: PT NOT ON ABX PROBIOTIC ORDERED: NO, PT NOT APPROPRIATE FOR THIS INTERVENTION PPI CHANGED TO [id number]: NO, PT REQUIRES FOR RECURRENT GIB GWEN ESPINOZA [facility], 12/30/20 1148
--- NOTE | 2020-12-30 15:47 | NUR ---
SHARLENE following for discharge planning. Spoke with RN and reviewed chart. Pt on room air, IV Zofran, regular diet. Hgb 6.6 and Hct 20.7. Discharge plan is home, self-care. SHARLENE following. Addendum: 12/31/20 at 1233 by SLOANE BECKER SW Pt discharged home per chart review. No further SW needs at this time.
[2020-12-30 15:49] LABS: BASO # 0.1 x10^3/uL (0.0-0.2); BASO % 1 % (0-3); EOS # 0.2 x10^3/uL (0.0-0.7); EOS % 3 % (0-3); HEMATOCRIT 24.4 % (36.0-47.0); HEMOGLOBIN 7.8 g/dL (12.0-15.5); LYMPH # 1.2 x10^3/uL (1.0-4.8); LYMPH % 20 % (24-48); MEAN CORPUSCULAR HEMOGLOBIN 27 pg (25-35); MEAN CORPUSCULAR HGB CONC 32 g/dL (31-37); MEAN CORPUSCULAR VOLUME 86 fL (79-100); MONO # 0.6 x10^3/uL (0.0-1.1); MONO % 11 % (0-9); NEUT # 3.6 x10^3/uL (1.8-7.7); NEUT % 64 % (31-73); PLATELET COUNT 422 x10^3/uL (140-400); RED BLOOD COUNT 2.84 x10^6/uL (3.50-5.40); RED CELL DISTRIBUTION WIDTH 17.2 % (11.5-14.5); WHITE BLOOD COUNT 5.7 x10^3/uL (4.0-11.0)
[2020-12-30] MEDS ORDERED: WARFARIN 5 MG TABLET. PO SCH (16:00)
--- NOTE | 2020-12-30 17:11 | NUR ---
pt discharged home post transfusion w/ Hgb 7.8. meds and follow up reviewed. IV removed, cath intact. pt stable upon dc. pt left via private vehicle.
[2020-12-30] MEDS ORDERED: ATORVASTATIN CALCIUM 10 MG TABLET. PO SCH (21:00)
[2020-12-31] MEDS ORDERED: WARFARIN 5 MG TABLET. PO SCH (16:00)
== END 2020-12-30 17:13 | disposition home or self-care (01) ==
LOC: ER 21:23 → 6 SOUTH 23:10
PROVIDERS: ADMIT Family Medicine; ATTEND Family Medicine
DX: D64.9 Anemia, unspecified (principal); E11.51 Type 2 diabetes mellitus with diabetic peripheral angiopathy without gangrene; K92.2 Gastrointestinal hemorrhage, unspecified; J44.9 Chronic obstructive pulmonary disease, unspecified; E78.00 Pure hypercholesterolemia, unspecified; F17.200 Nicotine dependence, unspecified, uncomplicated; Z96.659 Presence of unspecified artificial knee joint; Z86.73 Personal history of transient ischemic attack (TIA), and cerebral infarction without residual deficits
CPT/HCPCS: 36415; 71045; 80048; 80053; 83735; 84484; 85007; 85025; 85610; 86850; 86900; 86901; 86920; 93005; 99284; G0378; P9016; 36430; G0379

== ENCOUNTER 2021-01-13 11:48 | Observation (INO) | payer MEDICARE, MEDICAID ==
[2021-01-13] VITALS (9 sets, daily range): BP systolic 83–116; BP diastolic 34–54
[~2021-01-13] VITALS: Ht 172.7 cm; Wt 82.9 kg
[2021-01-13 13:36] LABS: BASO # 0.1 x10^3/uL (0.0-0.2); BASO % 1 % (0-3); EOS # 0.1 x10^3/uL (0.0-0.7); EOS % 2 % (0-3); LYMPH # 1.4 x10^3/uL (1.0-4.8); LYMPH % 20 % (24-48); MEAN CORPUSCULAR HEMOGLOBIN 24 pg (25-35); MEAN CORPUSCULAR HGB CONC 30 g/dL (31-37); MEAN CORPUSCULAR VOLUME 81 fL (79-100); MONO # 0.8 x10^3/uL (0.0-1.1); MONO % 11 % (0-9); NEUT # 4.3 x10^3/uL (1.8-7.7); NEUT % 65 % (31-73); PLATELET COUNT 511 x10^3/uL (140-400); RED BLOOD COUNT 2.09 x10^6/uL (3.50-5.40); RED CELL DISTRIBUTION WIDTH 19.3 % (11.5-14.5); WHITE BLOOD COUNT 6.7 x10^3/uL (4.0-11.0)
[2021-01-13 13:41] LABS: HEMATOCRIT 16.9 % (36.0-47.0); HEMOGLOBIN 5.1 g/dL (12.0-15.5)
[2021-01-13 13:49] LABS: PROTHROMBIN TIME PATIENT 15.5 SEC (11.7-14.0)
[2021-01-13] MEDS: ASPIRIN CHEWABLE 81 MG TABLET. PO SCH (13:55)
[2021-01-13] MEDS: PIOGLITAZONE 15 MG TABLET. PO SCH (13:55)
[2021-01-13] MEDS: DESMOPRESSIN 0.1 MG TABLET. PO SCH ×2 (13:55→20:37)
[2021-01-13] MEDS: DULoxetine HCL 30 MG CAPSULE.DR PO SCH (13:55)
[2021-01-13] MEDS: POTASSIUM CHLORIDE 20 MEQ TABLET.ER. PO SCH (13:56)
[2021-01-13] MEDS: FUROSEMIDE 40 MG TABLET. PO SCH (13:56)
[2021-01-13] MEDS: ESTRADIOL 1 MG TABLET. PO SCH (13:56)
[2021-01-13] MEDS: PANTOPRAZOLE 40 MG TABLET.DR. PO SCH (13:56)
[2021-01-13] MEDS: ALLOPURINOL 300 MG TABLET. PO SCH (13:57)
[2021-01-13 14:17] LABS: % EOS 1 % (0-5); % LYMPHS 7 % (24-48); % MONOS 5 % (0-10); % SEGS 87 % (35-66)
[2021-01-13 14:18] LABS: ANISOCYTOSIS SLIGHT; HYPOCHROMIA MOD; PLT ESTIMATE INCREASED (ADEQUATE)
[2021-01-13 20:34] LABS: BASO # 0.1 x10^3/uL (0.0-0.2); BASO % 2 % (0-3); EOS # 0.2 x10^3/uL (0.0-0.7); EOS % 3 % (0-3); HEMATOCRIT 22.3 % (36.0-47.0); HEMOGLOBIN 7.1 g/dL (12.0-15.5); LYMPH # 1.4 x10^3/uL (1.0-4.8); LYMPH % 27 % (24-48); MEAN CORPUSCULAR HEMOGLOBIN 26 pg (25-35); MEAN CORPUSCULAR HGB CONC 32 g/dL (31-37); MEAN CORPUSCULAR VOLUME 81 fL (79-100); MONO # 0.7 x10^3/uL (0.0-1.1); MONO % 13 % (0-9); NEUT % 56 % (31-73); PLATELET COUNT 454 x10^3/uL (140-400); RED BLOOD COUNT 2.74 x10^6/uL (3.50-5.40); RED CELL DISTRIBUTION WIDTH 17.4 % (11.5-14.5); WHITE BLOOD COUNT 5.4 x10^3/uL (4.0-11.0)
[2021-01-13] MEDS ORDERED: ATORVASTATIN CALCIUM 10 MG TABLET. PO SCH (21:00)
[2021-01-14 00:04] VITALS: BP 90/35
[2021-01-14 01:04] VITALS: BP 115/48
[2021-01-14 02:04] VITALS: BP 104/47
[2021-01-14 03:00] VITALS: BP 98/41
[2021-01-14 03:15] VITALS: BP 98/41
[2021-01-14 07:29] VITALS: BP 101/40
--- NOTE | 2021-01-14 07:47 | DS ---
DATE OF DISCHARGE: 01/14/2021 PRIMARY DIAGNOSES: Gastrointestinal bleed with symptomatic anemia. ADDITIONAL DIAGNOSES: Chronic obstructive pulmonary disease, diabetes mellitus, vasculopathy. CHIEF COMPLAINT AND HISTORY OF PRESENT ILLNESS: This 70-year-old white female admitted with symptomatic anemia and a hemoglobin of 5.1, on the day of admission for transfusion. SUMMARY OF STAY: The patient was admitted, typed, crossed and transfused a total of 3 units packed cells during the stay. Her hemoglobin was 7.1 after 2 units and another was given. Repeat hemoglobin is pending at the time of this discharge. It was discussed with her further plans regarding anticoagulation and may be some changes in that regards that were probably not recommended by Vascular Surgery and she is agreeable to whatever to try to get this to stop. She was felt ready for discharge and this was accomplished. DISPOSITION: The patient is discharged to home. DIET: ADA diet. ACTIVITY: As tolerated. FOLLOWUP: Office in 1 week. DISCHARGE MEDICATIONS: Listed on the med rec and have been addressed. ANABEL MARTÍNEZ MD DR: IZA/heriberto JOB#: [id number] / [id number]
--- NOTE | 2021-01-14 08:06 | HP ---
ADMIT DATE: 01/14/2021 CHIEF COMPLAINT AND HISTORY OF PRESENT ILLNESS: This 70-year-old white female is well known to me from followup. The patient developed symptomatic anemia once again on the day of admission, was admitted to the hospital for transfusion. Initial hemoglobin was 5.1 and she was short of breath, weak, lightheaded, etc. with the same. PAST MEDICAL AND SURGICAL HISTORY: Remarkable for: 1. Chronic recurrent GI bleeds. She remains on anticoagulation after mesenteric bypass per Vascular Surgery. 2. She has a history of diabetes. 3. COPD. 4. Peripheral arterial disease with stenting. 5. She has had bilateral knee replacements. MEDICATIONS: Meds are brought with the patient, listed on computer and have been addressed. ALLERGIES: She is allergic to SHRIMP. SOCIAL HISTORY: She continues to smoke. Despite all this, she is a nondrinker. Does not use alcohol. She is single. Lives at home alone. FAMILY HISTORY: Noncontributory. REVIEW OF SYSTEMS: As mentioned above. PHYSICAL EXAMINATION: GENERAL: She is a well-developed, well-nourished white female, in no acute distress. VITAL SIGNS: At the time of my examination, stable. She is afebrile. HEAD, EYES, EARS, NOSE AND THROAT: Remarkable for pallor of the conjunctivae. NECK: Supple without adenopathy or thyromegaly. CHEST: Clear to auscultation and percussion. HEART: Regular rate and rhythm without S3, S4 or murmur. ABDOMEN: Soft, nontender without hepatosplenomegaly or mass. EXTREMITIES: Without cyanosis, clubbing or edema. NEUROLOGIC: She is intact. IMPRESSION: 1. Recurrent gastrointestinal bleeding with symptomatic anemia. 2. Other problems listed above. PLAN: Transfusion with discharge once hemoglobin is stable. She is having further testing in early February 2021 per Vascular Surgery. After that, I am thinking about revamping her anticoagulation therapy as we are doing this every week or 2 with transfusions, etc. I have already let her INR drift down on the lower dose of warfarin and she is doing fine with that as far as keeping the vessels and bypasses open in her abdomen currently. ANABEL MARTÍNEZ MD DR: IZA/heriberto JOB#: [id number] / [id number]
[2021-01-14] MEDS: ASPIRIN CHEWABLE 81 MG TABLET. PO SCH (08:08)
[2021-01-14] MEDS: POTASSIUM CHLORIDE 20 MEQ TABLET.ER. PO SCH (08:08)
[2021-01-14] MEDS: PIOGLITAZONE 15 MG TABLET. PO SCH (08:09)
[2021-01-14] MEDS: PANTOPRAZOLE 40 MG TABLET.DR. PO SCH (08:09)
[2021-01-14] MEDS: ESTRADIOL 1 MG TABLET. PO SCH (08:09)
[2021-01-14] MEDS: DESMOPRESSIN 0.1 MG TABLET. PO SCH (08:09)
[2021-01-14] MEDS: FUROSEMIDE 40 MG TABLET. PO SCH (08:09)
[2021-01-14] MEDS: ALLOPURINOL 300 MG TABLET. PO SCH (08:09)
[2021-01-14] MEDS: DULoxetine HCL 30 MG CAPSULE.DR PO SCH (08:09)
[2021-01-14 08:13] LABS: BASO # 0.1 x10^3/uL (0.0-0.2); BASO % 1 % (0-3); EOS # 0.2 x10^3/uL (0.0-0.7); EOS % 3 % (0-3); HEMATOCRIT 24.4 % (36.0-47.0); HEMOGLOBIN 7.9 g/dL (12.0-15.5); LYMPH # 1.1 x10^3/uL (1.0-4.8); LYMPH % 13 % (24-48); MEAN CORPUSCULAR HEMOGLOBIN 27 pg (25-35); MEAN CORPUSCULAR HGB CONC 32 g/dL (31-37); MEAN CORPUSCULAR VOLUME 82 fL (79-100); MONO # 0.7 x10^3/uL (0.0-1.1); MONO % 9 % (0-9); NEUT # 5.8 x10^3/uL (1.8-7.7); NEUT % 74 % (31-73); PLATELET COUNT 441 x10^3/uL (140-400); RED BLOOD COUNT 2.97 x10^6/uL (3.50-5.40); WHITE BLOOD COUNT 7.9 x10^3/uL (4.0-11.0)
[2021-01-14 08:24] LABS: PROTHROMBIN TIME PATIENT 15.9 SEC (11.7-14.0)
--- NOTE | 2021-01-14 09:39 | NUR ---
SW following. Discussed with RN, pt from home, room air, regular diet. Discharge order for home with self care. Pt has already left. RN advised no SW needs.
[2021-01-14] MEDS ORDERED: WARFARIN 5 MG TABLET. PO SCH (16:00)
[2021-02-13] MEDS ORDERED: ASPI325T8 PO (07:30)
== END 2021-01-14 09:20 | disposition home or self-care (01) ==
LOC: INTOOBSV 11:48 → 4 NORTH 11:48
PROVIDERS: ADMIT Family Medicine; ATTEND Family Medicine
DX: D64.9 Anemia, unspecified (principal); E11.9 Type 2 diabetes mellitus without complications; J44.9 Chronic obstructive pulmonary disease, unspecified; K92.2 Gastrointestinal hemorrhage, unspecified; I73.9 Peripheral vascular disease, unspecified; E11.51 Type 2 diabetes mellitus with diabetic peripheral angiopathy without gangrene; F17.200 Nicotine dependence, unspecified, uncomplicated; Z96.653 Presence of artificial knee joint, bilateral
CPT/HCPCS: 36415; 36430; 85007; 85025; 85610; 86850; 86900; 86901; 86920; G0378; G0379; P9016

== ENCOUNTER → 2021-04-03 | Outpatient (CLI) | payer MEDICARE, MEDICAID ==
[2021-04-03 09:13] LABS: HEMATOCRIT 19.9 % (36.0-47.0); HEMOGLOBIN 6.1 g/dL (12.0-15.5)
[2021-04-03 10:34] VITALS: BP 104/49
[2021-04-03 10:50] VITALS: BP 104/50
[2021-04-03 11:50] VITALS: BP 92/47
[2021-04-03 12:48] VITALS: BP 95/62
[2021-04-03 13:03] VITALS: BP 107/51
[2021-04-03 14:03] VITALS: BP 108/58
== END | disposition home or self-care (01) ==
LOC: OPS 08:39
PROVIDERS: ATTEND Family Medicine
DX: D50.9 Iron deficiency anemia, unspecified (principal); J44.9 Chronic obstructive pulmonary disease, unspecified; E11.51 Type 2 diabetes mellitus with diabetic peripheral angiopathy without gangrene; Z87.891 Personal history of nicotine dependence
CPT/HCPCS: 36415; 36430; 85014; 85018; 86850; 86900; 86901; 86920; P9016

== ENCOUNTER → 2021-05-19 | Outpatient (CLI) | payer MEDICARE, MEDICAID ==
[2021-05-08 13:36] VITALS: BP 142/60
--- NOTE | 2021-05-19 09:58 | KCIC ---
MR LUMBAR SPINE [id number] Date: 05/19/2021 8:50 AM Indication: RIGHT LUMBAR RADICULOPATHY. LBP, sharp right hip pain, one month, pain down right leg. Comparison: 06/14/2020. Technique: Multi-planar multi-weighted magnetic resonance imaging of the lumbar spine was performed w ithout intravenous contrast using the standard lumbar spine protocol. FINDINGS: The lumbar spine is normally aligned. No acute fracture. Mild multilevel degenerative disc desiccatio n and disc height loss. Trace degenerative endplate edema at L4-5. The conus terminates at a normal level. No abnormal signal is seen within the visualized distal spina l cord. No clumping of intrathecal nerve roots. No soft tissue abnormality in the visualized abdomen or pelvis. T12-L1: No disc bulge. No facet arthropathy. No significant spinal stenosis or neural foraminal narro wing. L1-L2: No disc bulge. No facet arthropathy. No significant spinal stenosis or neural foraminal narrow ing. L2-L3: No disc bulge. No facet arthropathy. No significant spinal stenosis or neural foraminal narrow ing. L3-L4: Disc bulge. Mild facet arthropathy. No significant spinal stenosis or neural foraminal narrowi ng. L4-L5: Disc bulge with annular tear and small central superiorly migrating extrusion which extends 9 mm above the disc space. Moderate facet arthropathy. Ligamentum flavum thickening with some T2 hyperi ntensity in the ligamentum flavum on the right, which could represent degenerative cystic change. Mil d spinal stenosis and lateral recess narrowing. Mild right neural foraminal narrowing. L5-S1: Disc bulge. Severe right and mild left facet arthropathy. No significant spinal stenosis or ne ural foraminal narrowing. IMPRESSION: Lumbar spondylosis, worst at L4-5 as detailed above. Electronically signed by: Darío Tellez MD (05/19/2021 9:55 AM) [id number]
== END ==
LOC: KCIC MRI 08:19
PROVIDERS: ATTEND Family Medicine
DX: M47.27 Other spondylosis with radiculopathy, lumbosacral region (principal); M51.17 Intervertebral disc disorders with radiculopathy, lumbosacral region; M48.061 Spinal stenosis, lumbar region without neurogenic claudication
CPT/HCPCS: 72148

== ENCOUNTER → 2021-06-04 | Outpatient (CLI) | payer MEDICARE, MEDICAID ==
[2021-05-30 09:20] VITALS: BP 109/53
[2021-05-30 15:40] VITALS: BP 146/55
[~2021-06-04] MED LIST changes: +ASPI-630 PO; -DULO60CA6 PO; +DULO60CA7 PO; +HYDR-2761 PO; +POTA-121 PO; -POTA20TA4 PO
--- NOTE | 2021-06-04 15:31 | PDOC1 ---
INITIAL PAIN CONSULT DATE OF SERVICE: DOS: DATE: 06/04/21 TIME: 15:24 CHIEF COMPLAINT: Chief Complaint: Low back and right lower extremity pain HISTORY OF PRESENT ILLNESS: 70-year-old female presents for evaluation of low back right lower extremity pain for about 2 months now patient reports that it is not result of any specific injury or accident that she is aware of, but getting worse with time the low back and right lower extremity mostly the posterior gluteus posterior lateral thigh lateral anterior thigh anteromedial thigh to the level of the foot and ankle on the right side. Patient reports is worse in the mornings when she first gets up and also worse later in the day but during the middle of the day it is fairly tolerable as long as she is moving and changing positions and keeps active. Patient reports she has had physical therapy also chiropractic treatment neither which have helped significantly she still doing the exercises involved each of these at home and doing this daily with daily stretching also. Patient did get some prednisone on a taper dose from her primary care physician which is not significantly helpful in decreasing the pain.patient has been taking [id number] Tylenol as well without significant reduction in pain. The patient reports it wakes her from sleep only very rarely better with laying down sitting, much worse with standing walking or standing 1 position patient describes the pain as sharp and shooting changes during the day is radiating the right lower extremity as described aching and burning in the low back as well as cramping. Patient have an MRI scan lumbar spine showing at the L4-5 level disc bulge and small annular tear and migrating disc extrusion extending 9 mm above the disc space with mild spinal stenosis and lateral recess narrowing with mild right neuroforaminal narrowing as well. Patient rates her disability rating 0- 10 10 being the worst is a 10 with family responsibilities recreation and social activity 9 with occupation sexual waiver 8 with self-care and 5 life support activities. Patient reports a loss of motor function with significant fatigability with the right lower extremity with walking standing more than 10 to 20 minutes. PAST MEDICAL HISTORY: PMH: Arthritis, hypertension, congestive heart failure, COPD, diabetes, GI bleed PREVIOUS SURGERIES: Past Surgical Hx: Left inguinal hernia repair x2, bilateral knee replacements, 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, thumb surgery, colectomy, cataract extraction, gastric bypass CURRENT MEDICATIONS: Current Meds: Active Scripts Medications Dose Route/Sig Max Daily Dose Days Date Category Hydrocodone-Apap 5-325 (Hydrocodone Bit/Acetaminophen) 1 Tab Tablet 1 Tab PO PRN Q6HRS PRN 14 06/04/21 Rx Aspirin 325 Mg Tablet 325 Mg PO DAILY PRN 02/13/21 Reported Estradiol 1 Mg Tablet 1 Tab PO DAILY 10/03/20 Rx Desmopressin Acetate 0.2 Mg Tablet 1 Tab PO BID 08/30/20 Reported Lasix (Furosemide) 40 Mg Tablet 1 Tab PO DAILY 30 06/08/20 Rx Protonix (Pantoprazole Sodium) 20 Mg Tablet.dr 40 Mg PO DAILY 02/20/19 Reported Actos (Pioglitazone Hcl) 30 Mg Tablet 30 Mg PO DAILY 01/25/19 Reported Pravastatin Sodium 20 Mg Tablet 20 Mg PO QHS 07/02/16 Reported Allopurinol 100 Mg Tablet 300 Mg PO DAILY 11/20/15 Reported Cymbalta (Duloxetine Hcl) 60 Mg Capsule.dr 60 Mg PO DAILY 11/20/15 Reported ALLERGIES; Allergies: Coded Allergies: shrimp (Verified Allergy, Intermediate, Rash, 05/30/21) FAMILY HISTORY: Family Hx: No major medical problems or conditions that she is aware of. SOCIAL HISTORY: Social Hx: Patient is under alcohol does not use any illegal illicit or recreational drugs, smokes cigarettes less than a pack a day and has for 57 years patient is single and lives locally in [facility] REVIEW OF SYSTEMS: ROS: Positive for those items mentioned in history of present illness, all systems are reviewed, otherwise negative ,and are complete full and well-documented on patient's chart. PHYSICAL EXAM: VS: Blood pressure is 139/65 pulse 105 respirations 18 temperature 98.6 F height is 5 feet 8 inches weight is 204 pounds PE: PHYSICAL EXAMINATION: GENERAL: The patient is awake, alert, oriented, appropriate, very pleasant in demeanor HEENT: Shows normocephalic, atraumatic. Extraocular movements are intact and symmetrical. Oral cavity: Mucous membranes moist and pink. NECK: Shows anterior throat supple without palpable lymphadenopathy noted. Swallow reflex symmetrical. CHEST: Shows normal on inspection. Breath sounds are clear bilaterally, coarse and distant but no rales rhonchi or wheezes auscultated. HEART: Shows S1, S2 clear. No murmurs auscultated. ABDOMEN: Soft, nontender, nondistended, obese. No palpable organomegaly is noted. No rebound or guarding demonstrated. BACK: Shows spine grossly in the midline. Normal-appearing cervical lordotic curvature. There is mildly increased thoracic kyphosis, some flattening of the lumbar lordotic curvature. Lumbar paraspinous muscles show symmetrical on inspection, on palpation shows some moderate tenderness diffusely throughout the upper, middle and lower distribution of the paraspinous muscles bilaterally and also into the lower thoracic paraspinous musculature, firm and tender, but without specific trigger points, without radiation of pain. The patient has good rotational motion of the lumbar spine, both laterally as well as extension and flexion without significant difficulty. No tenderness over the spinous processes, sacrum or sacroiliac regions. EXTREMITIES: Lower extremities show deep tendon reflexes 2+ in the patellar and tendo calcaneus tendons. Motor exam is full on a scale of 5 with right dorsiflexion, extension, quadriceps and hamstring flexion and 5/5 on the left. Peripheral pulses are 1 posterior tibial. No peripheral edema is noted bilaterally. Lower extremities are warm and dry to touch, equal in color and appearance. Straight leg raise noted to be positive on the right about 40 degrees, left side is negative. Gaenslen's and Erwin's maneuvers are negative bilaterally as well. The patient is able to stand, stand on her toes without significant difficulty or loss of balance, walks with a slight favoring gait does appear to favor the right lower extremity only mildly not using any assistive devices educated her walker to ambulate. SKIN: Shows warm and dry, good turgor. No edema. No sores, rashes or bruising throughout. IMPRESSION: Impression: 70-year-old female with 2-month history increasing pain low back right lower extremity radicular fashion following a L4-5 dermatomal distribution. MRI scan lumbar spine as noted Arthritis Diabetes Coronary artery disease GI bleed history Plan: Options discussed with the patient including conservative management continued physical therapies and interventional techniques. Patient like to pursue interventional techniques as she has had physical therapies is doing stretching strength exercises on her own and is taking oral analgesics without significant decrease in pain as well as prednisone taper pack. Discussed a lumbar epidural steroid injection using description as well as anatomical models to describe the procedure. Patient will wait for preauthorization with her insurance provider once this is obtained we will plan on a translaminar approach L4-5 level lumbar epidural steroid injection with fluoroscopic guidance at that time. The meantime patient continue with stretching strength exercises oral analgesics and will call in hydrocodone 5/325 #20. Patient was given instructions well side effects beware with the medication. RICHARD BHANDARI MD Jun 04, 2021 15:31
== END | disposition home or self-care (01) ==
LOC: PNCL 13:53
PROVIDERS: ATTEND Anesthesiology
DX: I10 Essential (primary) hypertension (principal); E11.9 Type 2 diabetes mellitus without complications; E78.5 Hyperlipidemia, unspecified
CPT/HCPCS: 36415; G0463

== ENCOUNTER → 2021-06-20 | Outpatient (CLI) | payer MEDICARE, MEDICAID ==
[2021-05-30 15:40] VITALS: BP 146/55
[~2021-06-20] MED LIST changes: -ASPI-630 PO; +DULO60CA6 PO; -DULO60CA7 PO; +IOHEXOL 180 MG/ML 10 ML VIAL. ONE; -POTA-121 PO; +POTA20TA4 PO; +methylPREDNISolone ACETATE 80 MG/ML VIAL. ONE
--- NOTE | 2021-06-20 12:59 | PDOC ---
Progress Note - Pain Clinic Date of Service: DOS: DATE: 06/20/21 TIME: 12:55 Diagnosis: Dx: Lumbar radiculopathy with lumbar degenerative disease lumbar spinal stenosis History or Present Illness: HPI: 70-year-old female returns for follow-up status post initial evaluation for pain in the low back and right lower extremity patient reports a still significant pain across the low back and the right lower extremity posterior gluteus posterior lateral thigh lateral anterior thigh anteromedial thigh medial lower leg into the calf as well patient reports a 10 on scale 10 is worst average and a 7 at its least over the past week is sharp and shooting in the low back and right lower extremity aching and dull in the back as well as stabbing in the leg patient reports is worse with walking standing changing positions better with sitting or laying down generally does not awaken her from sleep at night. Patient has been taking hydrocodone which she reports not decrease the pain very significantly since her last visit. Patient's new medication is extra strength Tylenol she been taking 650 mg twice daily sometimes only at night but has been helping her get through the day better than the hydrocodone did. Patient reports no other new motor or sensory deficits no other new changes. No bowel or bladder incontinence. Physical Exam: VS: Blood pressure is 150/67 pulse 101 respirations 18.8 F height is 5 foot 8 inches weight is 200 pounds PE: PHYSICAL EXAMINATION: GENERAL: The patient is awake, alert, oriented, appropriate, very pleasant in demeanor. HEENT: Shows normocephalic, atraumatic. Extraocular movements are intact and symmetrical. Oral cavity: Mucous membranes moist and pink. NECK: Shows anterior throat supple without palpable lymphadenopathy noted. Swallow reflex symmetrical. CHEST: Shows normal on inspection. Breath sounds are clear bilaterally, no r ales or rhonchi. HEART: Shows S1, S2 clear. No murmurs auscultated. ABDOMEN: Soft, nontender, nondistended obese. No palpable organomegaly is noted. BACK: Shows spine grossly in the midline. Normal-appearing cervical lordotic curvature. There is slightly increased thoracic kyphosis, some minor flattening of the lumbar lordotic curvature. Lumbar paraspinous muscles show symmetrical on inspection, on palpation shows some moderate tenderness diffusely throughout the upper, middle and lower distribution of the paraspinous muscles without specific trigger points, without radiation of pain. The patient has good rotational motion of the lumbar spine, both laterally as well as extension and flexion without significant difficulty. EXTREMITIES: Lower extremities show deep tendon reflexes 2+ in the patellar and tendo calcaneus tendons. Motor exam is 4 on a scale of 5 with right dorsifle xion, extension, quadriceps and hamstring flexion and 5/5 on the left. Peripheral pulses are 1 posterior tibial. No peripheral edema is noted bilaterally. Lower extremities are warm and dry to touch, equal in color and appearance. SKIN: Shows warm and dry, good turgor. No edema. No sores, rashes or bruising throughout. Procedure: Procedure: Options discussed with the patient. Patient chart reviews her current medication regimen updated current review of systems updated today as well. We will proceed with a lumbar epidural steroid injection today with fluoroscopic guidance. Risks were discussed including but not limited to: Bleeding, infection, possibility of epidural hematoma and subsequent neurological compromise, dural puncture, headaches, spinal cord and/or nerve damage, side effects of steroid medication, and poor results regarding pain control. Patient understands and wished to proceed. Patient will return to the clinic in approximately 2 weeks for follow-up, was counseled as to return appointment active level and side effects to be aware of. Medication Injected: Med Injected: Procedure is lumbar epidural steroid injection under local anesthetic using sterile prep and drape at the L4-5 level using C-arm fluoroscopic guidance in both AP and lateral views medications injected is 120 mg Depo-Medrol +10mL pre servative-free normal saline and 2 mL contrast- condition at discharge is stable patient tolerated procedure well had no complications. Condition at Discharge: Condition at Discharge: Condition at discharge stable, patient already procedure well had no complications. RICHARD BHANDARI MD Jun 20, 2021 12:59
--- NOTE | 2021-06-20 13:00 | PDOC4 ---
Procedure Note: ICD 10 Code: ICD 10 Code: M 54.16 M 48.06 M 51.36 Procedure Note: Patient was consented for lumbar epidural steroid injection with fluoroscopic guidance. Risks were discussed including but not limited to: Bleeding, infection, possibility of epidural hematoma and subsequent neurological compromise, dural puncture, headaches, spinal cord and/or nerve damage, side effects of steroid medication, and poor results regarding pain control. Patient understands and wished to proceed. Procedure is lumbar epidural steroid injection under local anesthetic using s terile prep and drape at the L4-5 level using C-arm fluoroscopic guidance in both AP and lateral views medications injected is 120 mg Depo-Medrol +10mL preservative-free normal saline and 2 mL contrast- condition at discharge is stable patient tolerated procedure well had no complications. RICHARD BHANDARI MD Jun 20, 2021 13:00
== END | disposition home or self-care (01) ==
LOC: PNCL 11:17
PROVIDERS: ATTEND Anesthesiology
DX: M51.16 Intervertebral disc disorders with radiculopathy, lumbar region (principal); M48.061 Spinal stenosis, lumbar region without neurogenic claudication; I11.0 Hypertensive heart disease with heart failure; I50.9 Heart failure, unspecified; E78.00 Pure hypercholesterolemia, unspecified; K21.9 Gastro-esophageal reflux disease without esophagitis; E66.9 Obesity, unspecified; E11.9 Type 2 diabetes mellitus without complications; E03.9 Hypothyroidism, unspecified; M19.90 Unspecified osteoarthritis, unspecified site; F32.9 Major depressive disorder, single episode, unspecified; M10.9 Gout, unspecified; F17.210 Nicotine dependence, cigarettes, uncomplicated; Z86.73 Personal history of transient ischemic attack (TIA), and cerebral infarction without residual deficits; Z98.51 Tubal ligation status; Z98.890 Other specified postprocedural states; Z79.899 Other long term (current) drug therapy; Z79.82 Long term (current) use of aspirin; Z88.8 Allergy status to other drugs, medicaments and biological substances
CPT/HCPCS: 62323; J1040; Q9965